=== PATIENT | male | born 1945 | race Caucasian/White ===

== ENCOUNTER 2016-09-04 10:54 | Inpatient (IN) | payer BC, OTHER ==
[~2016-09-04] VITALS: Ht 175.3 cm; Wt 78.7 kg
[~2016-09-04 10:54] MED LIST: ACET-1311 PO; ASPI81TA28 PO; ATOR-24 PO; BENA20TA14 PO; BIMA0.01 OP; HYDR12.55 PO; METO1TAB66 PO; PLV75 PO; SERT50TA PO
[2016-09-04] MEDS ORDERED: ONDANSETRON INJ 2 MG/ML 2 ML VIAL IV STA (11:20)
[2016-09-04] MEDS ORDERED: MoRPHine SULFATE 4 MG/ML 1 ML CARP\\VIAL IV STA (11:20)
--- NOTE | 2016-09-04 11:25 | EMERGENCY ROOM VISIT NOTE ---
History First contact with patient: 11:11 Chief Complaint: RESPIRATORY PROBLEMS Stated Complaint: DYPSNEA Nursing Triage Summary: Pt was at PCP this morning for a checkup and they wanted him evaluated for SOB. Pt c/o SOB, especially on exertion, for 1 week. Pt also c/o diffuse abdominal pain when he becomes SOB. Pt has history of 3 stents last year and heart failure. Legs are edematous and pt c/o burning in bilateral legs. History of Present Illness The patient is a 70 year old male who presents to the Emergency Room via private vehicle with complaints of "dyspnea". Patient states that he was at Dr. Alex Marshall's office this morning for a routine checkup and they sent him here for evaluation of shortness of breath. This has been worsening with exertion for the past week. Patient also complains of diffuse abdominal pain when he become short of breath. He has a history of 3 stents placed last year and a history of heart failure. Legs are edematous and is complaining of burning in the bilateral legs. Patient states that he did have stents recently placed. He notes he does not have any chest pain at this time. He feels that his legs are really swelling up. The abdomen hurts only when he takes a deep breath. He also feels nauseated. He denies any recent surgery or cough. Review of Systems A complete 10-point Review of Systems was discussed with the patient, with pertinent positives and negatives listed in the History of Present Illness. All remaining Review of Systems questions can be considered negative unless otherwise specified. Past Medical/Surgical History Medical Problems: (1) Acute exacerbation of CHF (congestive heart failure) (2) CAD in [place] artery Social History Smoking Status: Former Smoker Current/Historical Medications Scheduled Acetaminophen (Tylenol), 325 MG PO prn Aspirin (Aspirin Ec), 81 MG PO DAILY Atorvastatin (Lipitor), 1 TAB PO DAILY Benazepril (Lotensin), 20 MG PO DAILY Bimatoprost (Lumigan), 1 DROPS OP HS Clopidogrel Bisulfate (Clopidogrel), 75 MG PO QAM Hydrochlorothiazide (Hydrochlorothiazide), 1 TAB PO DAILY Metoprolol Succinate (Toprol Xl), 1 TAB PO DAILY Sertraline (Zoloft), 1.5 TAB PO DAILY Allergies Coded Allergies: No Known Allergies (Unverified , 09/04/16) Physical Exam Vital Signs Date Time Temp Pulse Resp B/P Pulse Ox O2 Delivery O2 Flow Rate FiO2 09/04/16 13:54 63 09/04/16 12:26 76 22 148/79 92 Nasal Cannula 2.0 09/04/16 11:54 95 Nasal Cannula 2.0 09/04/16 11:25 70 09/04/16 11:01 94 Room Air 09/04/16 11:01 36.7 71 22 159/74 94 Room Air 09/04/16 11:01 94 Room Air Physical Exam VITAL SIGNS - Vital signs and nursing notes were reviewed. Patient is afebrile , blood pressure 159/74, non-tachycardic and saturating on room air at 94%. While in the room he did drop into the high 80s. Oxygen was started. GENERAL -70-year-old male appearing his stated age who is in no acute distress. Communicates well with provider and answers questions appropriately. SKIN - Without rashes. No petechial rashes. HEAD - NC/AT. EYES - PERRL with EOMI bilaterally. Sclera anicteric. Palpebral conjunctiva pink and moist with no injection noted. EARS - No deformities of external structures noted on gross examination bilaterally. NOSE - Midline and without cyanosis. No epistaxis or purulent drainage noted. MOUTH/OROPHARYNX - Without perioral cyanosis. Buccal mucosa pink and moist and without leukoplakia. Tongue midline with equal elevation of palate bilaterally. No tonsillar hypertrophy, erythema, or exudates noted. Fair dentition noted. NECK - Neck with FROM. No JVD. LUNGS - Chest wall symmetric without accessory muscle use, intercostals retractions, or central cyanosis. Normal vesicular breath sounds CTA B/L. No wheezes, rales, or rhonchi appreciated. CARDIAC - RRR with S1/S2. No murmur, rubs, or gallops appreciated. ABDOMEN - Abdominal contour without pulsations or visible masses. BS normoactive all four quadrants. There is minimal tenderness to palpation over the abdomen diffusely. No palpable masses, hepatosplenomegaly, or ascites noted. EXTREMITIES - No clubbing or peripheral cyanosis. No pretibial edema present. +5 /5 strength noted in UE/LE bilaterally. NEUROLOGIC - Cranial nerves II through XII grossly intact. Sensory intact to light touch throughout. Patellar reflexes +2/4. PSYCH - A&Ox3 and cooperates fully with examiner. Pt is very pleasant and interacts well with examiner. A rectal exam was performed after patient consented. This was done with male director enterprise systems. Unremarkable except for positive Hemoccult. Medical Decision & Procedures ER Provider Diagnostic Interpretation: CHEST ONE VIEW PORTABLE CLINICAL HISTORY: Dyspnea COMPARISON STUDY: No previous studies for comparison. FINDINGS: Findings of interstitial pulmonary edema. Moderate left pleural effusion. Small right effusion. IMPRESSION: Interstitial pulmonary edema with bilateral pleural effusions CT ANGIOGRAPHY OF THE CHEST, PULMONARY EMBOLUS PROTOCOL CLINICAL HISTORY: Dyspnea. Hypoxia. COMPARISON STUDY: Chest radiograph performed earlier today. TECHNIQUE: Following IV administration of 104 mL of Optiray-320, helical axial images of the chest were obtained utilizing the pulmonary embolus protocol. Maximal intensity projections and sagittal and coronal reformats were viewed on an independent 3D workstation. IV contrast was administered without complication. CT DOSE: 403.70 mGy.cm FINDINGS: No pulmonary emboli are identified although the segmental and subsegmental vessels within the lower lobes are suboptimally assessed due to respiratory motion. There is no evidence of thoracic aortic dissection/ There is moderate cardiomegaly and extensive coronary artery calcification. There is no pericardial effusion. There is a large left pleural effusion and a moderate right pleural effusion. There is extensive left lower lobe volume loss. There is lingular atelectasis. There is also suspected right lower lobe segmental atelectasis. There is diffuse bronchial wall thickening. Mild secretions are noted at the joi. There is mild emphysema. Interlobular septal thickening and groundglass opacities within the lungs are noted. There is no pneumothorax. The bony thorax and visualized portions of the upper abdomen are unremarkable. IMPRESSION: 1. No pulmonary identified although the segmental and subsegmental pulmonary arteries within the lower lobes are suboptimally assessed due to respiratory motion. 2. Interlobular septal thickening consistent with interstitial pulmonary edema. Groundglass opacities likely reflect pulmonary edema as well. 3. Large left and moderate right pleural effusions. Extensive left lower lobe volume loss with airspace opacity favors compressive atelectasis. 4. Moderate cardiomegaly and extensive coronary artery calcification. Electronically signed by: Lonnie Almanza M.D. 09/04/2016 12:33 PM Dictated Date/Time: 09/04/2016 12:27 PM Laboratory Results Test 09/04/16 11:20 09/04/16 11:42 Polychromasia 1+ Hypochromasia PRESENT Poikilocytosis PRESENT Anisocytosis PRESENT Microcytosis PRESENT Prothrombin Time 15.2 SECONDS (9.0-12.0) Prothromb Time International Ratio 1.4 (0.9-1.1) Activated Partial Thromboplast Time 25.8 SECONDS (21.0-31.0) Partial Thromboplastin Ratio 1.0 Magnesium Level 2.1 mg/dl (1.8-2.4) Total Bilirubin 0.5 mg/dl (0.2-1) Aspartate Amino Transf (AST/SGOT) 24 U/L (15-37) Alanine Aminotransferase (ALT/SGPT) 30 U/L (12-78) Alkaline Phosphatase 246 U/L (45-117) Total Creatine Kinase 47 U/L (39-308) Creatine Kinase MB 2.8 ng/ml (0.5-3.6) Creatine Kinase MB Ratio 6.0 (0-3.0) Total Protein 6.5 gm/dl (6.4-8.2) Albumin 3.3 gm/dl (3.4-5.0) Globulin 3.2 gm/dl (2.5-4.0) Albumin/Globulin Ratio 1.0 (0.9-2) Lipase 116 U/L (73-393) Thyroid Stimulating Hormone (TSH) 2.810 uIu/ml (0.300-4.500) Bedside Hemoglobin 10.2 g/dl (14.0-18.0) Bedside Hematocrit 30 % (42-52) Bedside Sodium 132 mEq/L (135-144) Bedside Potassium 4.1 mEq/L (3.3-5.0) Bedside Chloride 93 mEq/L (101-112) Bedside Total CO2 23 mEq/l (24-31) Bedside Blood Urea Nitrogen 17 mg/dl (7-18) Bedside Creatinine 0.8 mg/dl (0.6-1.3) Bedside Glucose (other) 115 mg/dl (70-99) Bedside Ionized Calcium (Dasia) 1.17 mmol/l (1.12-1.32) Medications Administered Medications (Trade) Dose Ordered Sig/Kaitlynn Route Start Time Stop Time Status Last Admin Dose Admin Morphine Sulfate (MoRPHine SULFATE INJ) 4 mg NOW STAT IV 09/04/16 11:20 09/04/16 11:23 DC 09/04/16 11:51 4 MG Ondansetron HCl (Zofran Inj) 4 mg NOW STAT IV 09/04/16 11:20 09/04/16 11:23 DC 09/04/16 11:51 4 MG Acetaminophen (Tylenol Tab) 650 mg Q4H PRN PO 09/04/16 14:15 10/04/16 14:14 09/05/16 05:45 650 MG Medical Decision Patient was seen and evaluated as above. After obtaining a thorough history and physical examination IV access was obtained and the above workup was performed. Stat EKG was obtained and revealed normal sinus rhythm, rate of 69 bpm and when compared with previous no significant change was found and no ectopy or ischemic change. This was correlated with the negative troponin. Patient was found to be anemic with a hemoglobin of 8.4 which is new onset. Patient is on Plavix with an INR 1.4. Sodium was 133, chloride was low at 93, glucose was slightly high with alkaline phosphatase of 246. [id number] d- dimer was 753, BNP was 6112, and troponin was 0.05. Patient is likely experiencing an acute exacerbation of CHF. Because the elevated d-dimer CT scan of the chest was obtained with results as above. No pulmonary embolism. TSH was normal limits. It is likely the patient is experiencing an exacerbation of CHF as the troponin was normal, EKG displayed no severe change from previous the patient was stable. PE as per CT study. I believe the patient would benefit from inpatient management particularly given the extensive heart history. Case was discussed with my attending and decision to admit the patient was made. A Hemoccult rectal exam was performed and found to be positive at 12:50 PM. Please refer to further hospital documentation regarding the patient's stay. I did not give the patient aspirin as he was already on Plavix. He was NOT experiencing any pain upon my evaluation. In evaluation treatment this patient following differential diagnoses were entertained: CHF, PE, MS, costochondritis, pericarditis, among others. Impression Primary Impression: Chest pain Additional Impressions: Anemia Alkaline phosphatase elevation Departure Information Dispostion Admitted as an inpatient Condition FAIR Referrals Alex Marshall M.D. (PCP) Patient Instructions [facility] Problem Qualifiers
--- NOTE | 2016-09-04 11:39 | DIAGNOSTIC IMAGING REPORT ---
CHEST ONE VIEW PORTABLE CLINICAL HISTORY: Dyspnea COMPARISON STUDY: No previous studies for comparison. FINDINGS: Findings of interstitial pulmonary edema. Moderate left pleural effusion. Small right effusion. IMPRESSION: Interstitial pulmonary edema with bilateral pleural effusions Electronically signed by: John Linder M.D. 09/04/2016 11:38 AM Dictated Date/Time: 09/04/2016 11:37 AM
[2016-09-04 11:44] LABS: BASO % 0.3 %; BASO ABS # 0.02 K/uL (0-0.2); EOS % 0.3 %; IG% 0.3 %; LYMPH % 8.9 %; LYMPH ABS # 0.65 K/uL (1.2-3.4); MEAN PLATELET VOLUME 10.2 fL (7.4-10.4); MONO % 6.2 %; PLATELET COUNT 281 K/uL (130-400); WHITE BLOOD COUNT 7.31 K/uL (4.8-10.8)
[2016-09-04 11:46] LABS: INR 1.4 (0.9-1.1); PROTHROMBIN TIME (PATIENT) 15.2 SECONDS (9.0-12.0)
[2016-09-04 11:50] LABS: BUN/CREATININE RATIO 20.5 (10-20); CALCIUM 8.6 mg/dl (8.5-10.1); CREATININE 0.86 mg/dl (0.60-1.40); MAGNESIUM 2.1 mg/dl (1.8-2.4); POTASSIUM 4.1 mmol/L (3.5-5.1)
[2016-09-04 11:58] LABS: ISTAT CREATININE 0.8 mg/dl (0.6-1.3); ISTAT HEMOGLOBIN 10.2 g/dl (14.0-18.0); ISTAT IONIZED CALCIUM 1.17 mmol/l (1.12-1.32)
[2016-09-04 12:01] LABS: THYROID STIMULATING HORMONE 2.81 uIu/ml (0.300-4.500)
[2016-09-04 12:13] LABS: ANISOCYTOSIS PRESENT; COMPLETE YES; HYPOCHROMIA PRESENT; MICROCYTOSIS PRESENT; OVALOCYTES 1+; POIKILOCYTOSIS PRESENT; POLYCHROMASIA 1+
--- NOTE | 2016-09-04 12:13 | EMERGENCY ROOM VISIT NOTE ---
ED Visit Note First contact with patient: 11:11 This Patient was discussed with the physician architectural administrative assistant, Scott Loco PA-C. The pertinent historical and physical exam findings were confirmed. I agree with the studies ordered and with the interpretations of these studies. I agree with the disposition and care plan.
[2016-09-04] MEDS ORDERED: OPTIRAY 320 IV PRN (12:15)
--- NOTE | 2016-09-04 12:34 | DIAGNOSTIC IMAGING REPORT ---
CT ANGIOGRAPHY OF THE CHEST, PULMONARY EMBOLUS PROTOCOL CLINICAL HISTORY: Dyspnea. Hypoxia. COMPARISON STUDY: Chest radiograph performed earlier today. TECHNIQUE: Following IV administration of 104 mL of Optiray-320, helical axial images of the chest were obtained utilizing the pulmonary embolus protocol. Maximal intensity projections and sagittal and coronal reformats were viewed on an independent 3D workstation. IV contrast was administered without complication. CT DOSE: 403.70 mGy.cm FINDINGS: No pulmonary emboli are identified although the segmental and subsegmental vessels within the lower lobes are suboptimally assessed due to respiratory motion. There is no evidence of thoracic aortic dissection/ There is moderate cardiomegaly and extensive coronary artery calcification. There is no pericardial effusion. There is a large left pleural effusion and a moderate right pleural effusion. There is extensive left lower lobe volume loss. There is lingular atelectasis. There is also suspected right lower lobe segmental atelectasis. There is diffuse bronchial wall thickening. Mild secretions are noted at the joi. There is mild emphysema. Interlobular septal thickening and groundglass opacities within the lungs are noted. There is no pneumothorax. The bony thorax and visualized portions of the upper abdomen are unremarkable. IMPRESSION: 1. No pulmonary identified although the segmental and subsegmental pulmonary arteries within the lower lobes are suboptimally assessed due to respiratory motion. 2. Interlobular septal thickening consistent with interstitial pulmonary edema. Groundglass opacities likely reflect pulmonary edema as well. 3. Large left and moderate right pleural effusions. Extensive left lower lobe volume loss with airspace opacity favors compressive atelectasis. 4. Moderate cardiomegaly and extensive coronary artery calcification. Electronically signed by: Lonnie Almanza M.D. 09/04/2016 12:33 PM Dictated Date/Time: 09/04/2016 12:27 PM
--- NOTE | 2016-09-04 13:42 | History and Physical ---
History & Physical Date & Time of Service: Sep 04, 2016 at 13:32 Chief Complaint: Dypsnea Primary Care Physician: Alex Marshall M.D. History of Present Illness Source: patient This is a 70 yo M with PMHx of severe CAD s/p PCI x 2 with total of 3 DEZ placed in the RCA and 1st diagonal branch in Mar 2016, severe cardiomyopathy with aortic stenosis and mitral regurgitation who presents with new onset shortness of breath. The patient had an outpatient appointment with Dr. Marshall this morning and was sent here for shortness of breath. He reports feeling increasingly worse in the past week with easy fatigue, weakness, swelling in LE and progressive shortness of breath. He reports orthopnea and worsening swelling in bilateral LE in the past 3 days. He normally does not wear O2 at baseline, and is currently requiring 2 L via NC. He was so short of breath after walking in the parking lot to the stairs outside his PCPs office he needed to stop. CXR showing bilateral pleural effusions with Left worse than right, BNP and trop are in process, CTPE is negative for acute PE, VSS. Social History Smoking Status: Former Smoker Smokeless Tobacco Use: No Alcohol Use: none Drug Use: none Multi-Drug Resistant Organisms History of MDRO: No Allergies Coded Allergies: No Known Allergies (Unverified , 09/04/16) Home Medications Scheduled Acetaminophen (Tylenol), 325 MG PO prn Aspirin (Aspirin Ec), 81 MG PO DAILY Atorvastatin (Lipitor), 1 TAB PO DAILY Benazepril (Lotensin), 20 MG PO DAILY Bimatoprost (Lumigan), 1 DROPS OP HS Clopidogrel Bisulfate (Clopidogrel), 75 MG PO QAM Hydrochlorothiazide (Hydrochlorothiazide), 1 TAB PO DAILY Metoprolol Succinate (Toprol Xl), 1 TAB PO DAILY Sertraline (Zoloft), 1.5 TAB PO DAILY Review of Systems All 10 point ROS was reviewed and negative unless otherwise notes as per HPI Physical Exam Vital Signs Date Time Temp Pulse Resp B/P Pulse Ox O2 Delivery O2 Flow Rate FiO2 09/04/16 12:26 76 22 148/79 92 Nasal Cannula 2.0 09/04/16 11:54 95 Nasal Cannula 2.0 09/04/16 11:25 70 09/04/16 11:01 94 Room Air 09/04/16 11:01 36.7 71 22 159/74 94 Room Air 09/04/16 11:01 94 Room Air General Appearance: WD/WN, no apparent distress Head: normocephalic, atraumatic Eyes: PERRL, EOMI, + pertinent finding (dry mucous membranes) ENT: hearing grossly normal, + pertinent finding (endentulous) Neck: supple, + JVD Respiratory/Chest: chest non-tender, no accessory muscle use, + pertinent finding (+ crackles at the right base, no breath sounds in the LLL. Good air movement in RUL, RML and SHANNAN. Wearing 2 L O2 via NC with o2 sats in low 90s, ) Cardiovascular: regular rate, rhythm, normal peripheral pulses, + systolic murmur Abdomen/GI: normal bowel sounds, non tender, soft, + pertinent finding (no rebound tenderness of guarding. No pain with deep breaths. ) Genitourinary - Male: + pertinent finding (No scrotal edema) Back: normal inspection Extremities/Musculoskelatal: no calf tenderness, + pedal edema (3+ pitting in BLE up to knees, no erythema. ) Neurologic/Psych: alert, normal mood/affect, oriented x 3 Skin: normal color, warm/dry Diagnostics Laboratory Results Results Past 24 Hours Test 09/04/16 11:20 09/04/16 11:42 Range/Units White Blood Count 7.31 4.8-10.8 K/uL Red Blood Count 4.00 4.7-6.1 M/uL Hemoglobin 8.4 14.0-18.0 g/dL Hematocrit 28.0 42-52 % Mean Corpuscular Volume 70.0 80-100 fL Mean Corpuscular Hemoglobin 21.0 25-34 pg Mean Corpuscular Hemoglobin Concent 30.0 32-36 g/dl Platelet Count 281 130-400 K/uL Mean Platelet Volume 10.2 7.4-10.4 fL Neutrophils (%) (Auto) 84.0 % Lymphocytes (%) (Auto) 8.9 % Monocytes (%) (Auto) 6.2 % Eosinophils (%) (Auto) 0.3 % Basophils (%) (Auto) 0.3 % Neutrophils # (Auto) 6.15 1.4-6.5 K/uL Lymphocytes # (Auto) 0.65 1.2-3.4 K/uL Monocytes # (Auto) 0.45 0.11-0.59 K/uL Eosinophils # (Auto) 0.02 0-0.5 K/uL Basophils # (Auto) 0.02 0-0.2 K/uL RDW Standard Deviation 48.9 36.4-46.3 fL RDW Coefficient of Variation 19.2 11.5-14.5 % Immature Granulocyte % (Auto) 0.3 % Immature Granulocyte # (Auto) 0.02 0.00-0.02 K/uL Polychromasia 1+ Hypochromasia PRESENT Poikilocytosis PRESENT Anisocytosis PRESENT Microcytosis PRESENT Ovalocytes 1+ Prothrombin Time 15.2 9.0-12.0 SECONDS Prothromb Time International Ratio 1.4 0.9-1.1 Activated Partial Thromboplast Time 25.8 21.0-31.0 SECONDS Partial Thromboplastin Ratio 1.0 Sodium Level 133 136-145 mmol/L Potassium Level 4.1 3.5-5.1 mmol/L Chloride Level 98 98-107 mmol/L Carbon Dioxide Level 24 21-32 mmol/L Anion Gap 11.0 20.0 16-25 mmol/L Blood Urea Nitrogen 18 7-18 mg/dl Creatinine 0.86 0.60-1.40 mg/dl Est Creatinine Clear Calc Drug Dose 84.8 ml/min Estimated GFR () 100.4 Estimated GFR (Non- 86.6 BUN/Creatinine Ratio 20.5 10-20 Random Glucose 113 70-99 mg/dl Calcium Level 8.6 8.5-10.1 mg/dl Magnesium Level 2.1 1.8-2.4 mg/dl Total Bilirubin 0.5 0.2-1 mg/dl Aspartate Amino Transf (AST/SGOT) 24 15-37 U/L Alanine Aminotransferase (ALT/SGPT) 30 12-78 U/L Alkaline Phosphatase 246 45-117 U/L Total Creatine Kinase 47 39-308 U/L Creatine Kinase MB 2.8 0.5-3.6 ng/ml Creatine Kinase MB Ratio 6.0 0-3.0 Total Protein 6.5 6.4-8.2 gm/dl Albumin 3.3 3.4-5.0 gm/dl Globulin 3.2 2.5-4.0 gm/dl Albumin/Globulin Ratio 1.0 0.9-2 Lipase 116 73-393 U/L Thyroid Stimulating Hormone (TSH) 2.810 0.300-4.500 uIu/ml Bedside Hemoglobin 10.2 14.0-18.0 g/dl Bedside Hematocrit 30 42-52 % Bedside Sodium 132 135-144 mEq/L Bedside Potassium 4.1 3.3-5.0 mEq/L Bedside Chloride 93 101-112 mEq/L Bedside Total CO2 23 24-31 mEq/l Bedside Blood Urea Nitrogen 17 7-18 mg/dl Bedside Creatinine 0.8 0.6-1.3 mg/dl Bedside Glucose (other) 115 70-99 mg/dl Bedside Ionized Calcium (Dasia) 1.17 1.12-1.32 mmol/l Diagnostic Radiology CHEST ONE VIEW PORTABLE CLINICAL HISTORY: Dyspnea COMPARISON STUDY: No previous studies for comparison. FINDINGS: Findings of interstitial pulmonary edema. Moderate left pleural effusion. Small right effusion. IMPRESSION: Interstitial pulmonary edema with bilateral pleural effusions Electronically signed by: John Linder M.D. 09/04/2016 11:38 AM Dictated Date/Time: 09/04/2016 11:37 AM The status of this report is Signed. CT ANGIOGRAPHY OF THE CHEST, PULMONARY EMBOLUS PROTOCOL CLINICAL HISTORY: Dyspnea. Hypoxia. COMPARISON STUDY: Chest radiograph performed earlier today. TECHNIQUE: Following IV administration of 104 mL of Optiray-320, helical axial images of the chest were obtained utilizing the pulmonary embolus protocol. Maximal intensity projections and sagittal and coronal reformats were viewed on an independent 3D workstation. IV contrast was administered without complication. CT DOSE: 403.70 mGy.cm FINDINGS: No pulmonary emboli are identified although the segmental and subsegmental vessels within the lower lobes are suboptimally assessed due to respiratory motion. There is no evidence of thoracic aortic dissection/ There is moderate cardiomegaly and extensive coronary artery calcification. There is no pericardial effusion. There is a large left pleural effusion and a moderate right pleural effusion. There is extensive left lower lobe volume loss. There is lingular atelectasis. There is also suspected right lower lobe segmental atelectasis. There is diffuse bronchial wall thickening. Mild secretions are noted at the joi. There is mild emphysema. Interlobular septal thickening and groundglass opacities within the lungs are noted. There is no pneumothorax. The bony thorax and visualized portions of the upper abdomen are unremarkable. IMPRESSION: 1. No pulmonary identified although the segmental and subsegmental pulmonary arteries within the lower lobes are suboptimally assessed due to respiratory motion. 2. Interlobular septal thickening consistent with interstitial pulmonary edema. Groundglass opacities likely reflect pulmonary edema as well. 3. Large left and moderate right pleural effusions. Extensive left lower lobe volume loss with airspace opacity favors compressive atelectasis. 4. Moderate cardiomegaly and extensive coronary artery calcification. Electronically signed by: Lonnie Almanza M.D. 09/04/2016 12:33 PM Dictated Date/Time: 09/04/2016 12:27 PM The status of this report is Signed. EKG Vent. rate 69 BPM IA interval 198 ms QRS duration 98 ms QT/QTc 434/465 ms P-R-T axes [address] and T wave slight elevation in the lateral leads, Prolonged QT Impression Assessment and Plan This is a 70 yo M with PMHx of severe CAD s/p PCI x 2 with total of 3 DEZ placed in the RCA and 1st diagonal branch in Mar 2016, severe cardiomyopathy with aortic stenosis and mitral regurgitation who presents with new onset shortness of breath. Acute exacerbation of chronic systolic CHF HTN Severe cardiomyopathy with EF 30% in 09/2015 Severe CAD s/p PCI x 2 with total of 3 DEZ placed, (2 in the RCA and 1 in the 1st diagnoal) - Admit to tele - Appears to be volume overloaded with 2/3+ pitting edema in BLE and +crackles in the RLL with diminished breath sounds in the LLL. - CXR showing bilateral pleural effusions worse on the left than on the right. CTPE negative for pulmonary embolism. - Will order 60 mg IV lasix now, Strict I/Os. - BNP not ordered in the ED, checking now - Consult cardiology for recs regarding gi bleed and anticoagulation in light of severe CAD and DEZ x 3 - Continue Plavix 75 mg for now even with hemocult + check in the ED - Continue metoprolol succinate 25 mg daily, amlodipine/benzapril 5/20 mg daily , asa 81 mg daily, atorvastatin 80 mg daily - HOLD HCTZ 12.5 while diuresis with lasix. - Follow am labs GI Bleed? - Hemocult stool in ED + - Pt has history of rectal bleed prior to this admit, denies BRBPR, black or tarry stools, no abd pain, hematochezia, nausea - Will start on protonix gtt now, not on oral PPI as outpatient - Check H&H q6H - current hgb is 8.4 - if changes in hgb or worsening sx then will consider GI consult. Depression - Continue zoloft 75 mg daily DVT ppx: chemical contraindicated with potential GI bleed, SCDs, OOB CODE STATUS: FULL CODE Level of Care Telemetry Resuscitation Status FULL RESUSCITATION VTE Prophylaxis VTE Risk Assessment Done? Y/N: Yes Risk Level: Very Low Given or contraindicated: SCD's Reviewed: Pt Seen/Exam by Me, RN Notes, HO Notes, Prior Records, Labs, EKG History I Agree with PA H&P except as below This is a 70 yo M with PMHx of severe CAD s/p PCI x 2 with total of 3 DEZ placed in the RCA and 1st diagonal branch in Mar 2016, severe cardiomyopathy with aortic stenosis and mitral regurgitation who presents with new onset shortness of breath. EENTM: denies: eye pain Respiratory: negative: cough Cardiovascular: denies chest pain Gastrointestinal/Abdominal: negative: abdominal pain Musculoskeletal: negative: back pain Neurological/Psych: negative: anxiety Hematologic/Lymphatic: negative: anemia General Appearance: WD/WN, no apparent distress Eye Exam: bilateral eye normal inspection Ears, Nose, Throat: hearing grossly normal, pharynx normal Neck: full range of motion, normal inspection Respiratory: chest non-tender, normal breath sounds Cardiovascular: no edema, no JVD Gastrointestinal: non tender, soft Extremities: non-tender Assessment/Plan This is a 70 yo M with PMHx of severe CAD s/p PCI x 2 with total of 3 DEZ placed in the RCA and 1st diagonal branch in Mar 2016, severe cardiomyopathy with aortic stenosis and mitral regurgitation who presents with new onset shortness of breath. Acute exacerbation of chronic systolic CHF in the setting of Severe cardiomyopathy with EF 30% in 09/2015 and Severe CAD s/p PCI x 2 with total of 3 DEZ placed, (2 in the RCA and 1 in the 1st diagonal) tele volume overloaded with 2/3+ pitting edema in BLE and +crackles in the RLL with diminished breath sounds in the LLL. CXR showing bilateral pleural effusions worse on the left than on the right. CTPE negative for pulmonary embolism. agree with 60 mg IV lasix now, Strict I/Os. check BNP Consult cardiology for recs regarding gi bleed and anticoagulation in light of severe CAD and DEZ x 3 Continue Plavix 75 mg for now even with hemocult + check in the ED Continue metoprolol succinate 25 mg daily, amlodipine/benzapril 5/20 mg daily, asa 81 mg daily, atorvastatin 80 mg daily HOLD HCTZ 12.5 while diuresis with lasix. GI Bleed? Hemocult stool in ED + Pt has history of rectal bleed prior to this admit, denies BRBPR, black or tarry stools, no abd pain, hematochezia, nausea start on protonix gtt now, not on oral PPI as outpatient Check H&H q6H - current hgb is 8.4 if changes in hgb or worsening sx then will consider GI consult. Depression Continue zoloft 75 mg daily DVT proph: chemical contraindicated with potential GI bleed, SCDs, OOB CODE STATUS: FULL CODE case discussed with GRETEL Ernandez time spent 50 min
[2016-09-04] MEDS ORDERED: ALUMINUM/MAGNESIUM/SIMETH (MAALOX MAX) 30 ML UDC PO PRN (14:15)
[2016-09-04] MEDS ORDERED: NITROGLYCERIN 0.4 MG SL PER TAB CHARGE SL PRN (14:15)
[2016-09-04] MEDS ORDERED: ONDANSETRON INJ 2 MG/ML 2 ML VIAL IV PRN (14:15)
[2016-09-04] MEDS ORDERED: PANTOprazole INJ 80 MG in DEXTROSE 5% 100ML IV SCH ×2 (14:45→16:00)
[2016-09-04] MEDS: PANTOprazole INJ 40 MG in DEXTROSE 5% 100ML IV SCH ×2 (15:53→20:36)
[2016-09-04] MEDS ORDERED: FUROSEMIDE INJ 60 MG in SYRINGE 0 ML IV SCH (16:00)
[2016-09-04] MEDS ORDERED: PANTOprazole INJ 40 MG in DEXTROSE 5% 100ML IV SCH (16:15)
[2016-09-04 17:25] VITALS: BP 128/73; PULSE 61; TEMP 36.3; O2SAT 96; Ht 175.3 cm; Wt 78.7 kg
[2016-09-04 20:10] VITALS: BP 119/63; PULSE 51; TEMP 36.7; O2SAT 95
[2016-09-04] MEDS: BIMATOPROST 0.01% OP SOLN 2.5 ML BTL OP SCH (20:37)
[2016-09-04] MEDS ORDERED: INFLUENZA VIRUS QUAD VACCINE 0.5 ML SYR IM. ONE (21:00)
[2016-09-04] MEDS ORDERED: PNEUMOCOCCAL POLYSACCHARIDES 25 MCG/0.5 ML VIAL/SYR IM. ONE (21:00)
[2016-09-04] MEDS ORDERED: PNEUMOCOCCAL ADMINISTRATION CHARGE ONE (21:00)
[2016-09-04] MEDS ORDERED: INFLUENZA ADMINISTRATION CHARGE ONE (21:00)
[2016-09-04 22:33] LABS: HEMATOCRIT 27.4 % (42-52)
[2016-09-04] MEDS ORDERED: FUROSEMIDE INJ 20 MG in SYRINGE 0 ML IV SCH (23:00)
[2016-09-04 23:36] VITALS: BP 128/68; PULSE 53; TEMP 36.3; O2SAT 97
[2016-09-05] VITALS (12 sets, daily range): BP systolic 114–133; BP diastolic 55–72; PULSE 45–91; TEMP 36.3–36.9; O2SAT 91–99
[2016-09-05] MEDS: PANTOprazole INJ 40 MG in DEXTROSE 5% 100ML IV SCH ×2 (02:37→08:30)
--- NOTE | 2016-09-05 05:18 | Progress Note ---
Progress Note Contacted by nurse about bradycardia - high 40s, low 50s - cbc returned and revealed anemia however hemodynamically stable and asymptomatic - hemm occult grossly positive - 2 units of blood ordered, one transfused with 20 mg of lasix given after - HR improved to low 60s - consult GI
[2016-09-05] MEDS: ACETAMINOPHEN 325 MG TAB PO PRN (05:45)
[2016-09-05 06:00] LABS: BASO % 0.7 %; BASO ABS # 0.05 K/uL (0-0.2); EOS % 1.3 %; HEMATOCRIT 30.4 % (42-52); IG% 0.1 %; LYMPH % 16.6 %; LYMPH ABS # 1.11 K/uL (1.2-3.4); MEAN CELL VOLUME 71.5 fL (80-100); MEAN CORPUSCULAR HEMOGLOBIN 21.4 pg (25-34); MEAN CORPUSCULAR HGB CONC 29.9 g/dl (32-36); MEAN PLATELET VOLUME 10.6 fL (7.4-10.4); MONO % 9.6 %; NEUT % 71.7 %; PLATELET COUNT 261 K/uL (130-400); RED BLOOD COUNT 4.25 M/uL (4.7-6.1); WHITE BLOOD COUNT 6.68 K/uL (4.8-10.8)
[2016-09-05 06:24] LABS: BUN/CREATININE RATIO 14.8 (10-20); CALCIUM 8.4 mg/dl (8.5-10.1); CREATININE 1.1 mg/dl (0.60-1.40); POTASSIUM 3.6 mmol/L (3.5-5.1)
[2016-09-05 06:38] LABS: ACANTHOCYTES 1+; COMPLETE YES; OVALOCYTES 1+; TEAR DROP CELLS 1+
[2016-09-05] MEDS: FUROSEMIDE INJ 40 MG in SYRINGE 0 ML IV SCH (08:26)
[2016-09-05] MEDS: ASPIRIN 81 MG ECTAB PO SCH (08:27)
[2016-09-05] MEDS: ENALAPRIL MALEATE 10 MG TAB PO SCH (08:27)
[2016-09-05] MEDS: ATORVASTATIN 40 MG TAB PO SCH (08:28)
[2016-09-05] MEDS: CLOPIDOGREL BISULFATE 75 MG TAB PO SCH (08:28)
[2016-09-05] MEDS: SERTRALINE HCL 50 MG TAB PO SCH (08:29)
[2016-09-05] MEDS: METOPROLOL SUCC 50MG EXT REL TAB PO SCH (08:30)
--- NOTE | 2016-09-05 08:39 | Gastroenterology Progress Note ---
Progress Note Date of Service: Sep 05, 2016 Subjective Pt evaluation today including: conversation w/ patient, physical exam, chart review, review of studies, review of inpatient medication list Medications Current Inpatient Medications Medications (Trade) Dose Ordered Sig/Kaitlynn Route Start Time Stop Time Status Last Admin Dose Admin Ioversol (Optiray 320) 125 ml UD PRN IV 09/04/16 12:15 09/08/16 12:14 Acetaminophen (Tylenol Tab) 650 mg Q4H PRN PO 09/04/16 14:15 10/04/16 14:14 09/05/16 05:45 650 MG Al Hydrox/Mg Hydrox/Simethicone (Maalox Max Susp) 15 ml Q4H PRN PO 09/04/16 14:15 10/04/16 14:14 Ondansetron HCl (Zofran Inj) 4 mg Q6H PRN IV 09/04/16 14:15 10/04/16 14:14 Nitroglycerin (Nitrostat Tab) 0.4 mg UD PRN SL 09/04/16 14:15 10/04/16 14:14 Aspirin (Ecotrin Tab) 81 mg DAILY PO 09/05/16 09:00 10/05/16 08:59 Atorvastatin Calcium (Lipitor Tab) 40 mg DAILY PO 09/05/16 09:00 10/05/16 08:59 Clopidogrel Bisulfate (plAVix TAB) 75 mg QAM PO 09/05/16 09:00 10/05/16 08:59 Metoprolol Succinate (Toprol Xl Tab) 50 mg DAILY PO 09/05/16 09:00 10/05/16 08:59 Sertraline HCl (Zoloft Tab) 75 mg DAILY PO 09/05/16 09:00 10/05/16 08:59 Enalapril Maleate (Vasotec Tab) 20 mg DAILY PO 09/05/16 09:00 10/05/16 08:59 Bimatoprost 1 drops 1 drops HS OP 09/04/16 21:00 10/04/16 20:59 09/04/16 20:37 1 DROPS Furosemide 40 mg/ Syringe 4 ml @ 4 mls/min QAM IV 09/05/16 09:00 10/05/16 08:59 Pantoprazole Sodium/Dextrose (Protonix Inj/D5 100ml) 100 ml @ 20 mls/hr Q5H IV 09/04/16 15:00 10/04/16 14:59 09/05/16 02:37 20 MLS/HR Objective Vital Signs Date Time Temp Pulse Resp B/P Pulse Ox O2 Delivery O2 Flow Rate FiO2 09/05/16 07:11 36.6 45 20 114/70 99 09/05/16 04:00 93 Nasal Cannula 2.0 09/05/16 04:00 36.4 66 20 128/72 93 2.0 09/05/16 01:50 36.5 62 20 120/60 95 09/05/16 01:20 36.3 59 20 124/59 95 09/05/16 00:50 36.6 64 20 119/63 95 09/05/16 00:35 36.3 64 20 119/63 94 2.0 09/05/16 00:20 36.5 55 16 133/67 94 2.0 09/05/16 00:00 94 Nasal Cannula 2.0 09/04/16 23:36 36.3 53 18 128/68 97 Nasal Cannula 2.0 09/04/16 20:10 36.7 51 18 119/63 95 Nasal Cannula 2.0 09/04/16 20:00 Nasal Cannula 2.0 09/04/16 17:25 36.3 61 18 128/73 96 Nasal Cannula 2.0 09/04/16 14:48 58 20 118/98 97 Nasal Cannula 2.0 09/04/16 14:22 58 22 123/65 97 Nasal Cannula 2.0 09/04/16 13:54 63 09/04/16 12:26 76 22 148/79 92 Nasal Cannula 2.0 09/04/16 11:54 95 Nasal Cannula 2.0 09/04/16 11:25 70 09/04/16 11:01 94 Room Air 09/04/16 11:01 36.7 71 22 159/74 94 Room Air 09/04/16 11:01 94 Room Air Laboratory Results Last 24 Hours Test 09/04/16 11:20 09/04/16 11:42 09/04/16 17:40 09/04/16 22:00 White Blood Count 7.31 K/uL Red Blood Count 4.00 M/uL Hemoglobin 8.4 g/dL 7.9 g/dL 8.0 g/dL Hematocrit 28.0 % 27.0 % 27.4 % Mean Corpuscular Volume 70.0 fL Mean Corpuscular Hemoglobin 21.0 pg Mean Corpuscular Hemoglobin Concent 30.0 g/dl Platelet Count 281 K/uL Mean Platelet Volume 10.2 fL Neutrophils (%) (Auto) 84.0 % Lymphocytes (%) (Auto) 8.9 % Monocytes (%) (Auto) 6.2 % Eosinophils (%) (Auto) 0.3 % Basophils (%) (Auto) 0.3 % Neutrophils # (Auto) 6.15 K/uL Lymphocytes # (Auto) 0.65 K/uL Monocytes # (Auto) 0.45 K/uL Eosinophils # (Auto) 0.02 K/uL Basophils # (Auto) 0.02 K/uL RDW Standard Deviation 48.9 fL RDW Coefficient of Variation 19.2 % Immature Granulocyte % (Auto) 0.3 % Immature Granulocyte # (Auto) 0.02 K/uL Polychromasia 1+ Hypochromasia PRESENT Poikilocytosis PRESENT Anisocytosis PRESENT Microcytosis PRESENT Ovalocytes 1+ Prothrombin Time 15.2 SECONDS Prothromb Time International Ratio 1.4 Activated Partial Thromboplast Time 25.8 SECONDS Partial Thromboplastin Ratio 1.0 Sodium Level 133 mmol/L Potassium Level 4.1 mmol/L Chloride Level 98 mmol/L Carbon Dioxide Level 24 mmol/L Anion Gap 11.0 mmol/L 20.0 mmol/L Blood Urea Nitrogen 18 mg/dl Creatinine 0.86 mg/dl Est Creatinine Clear Calc Drug Dose 84.8 ml/min Estimated GFR () 100.4 Estimated GFR (Non- 86.6 BUN/Creatinine Ratio 20.5 Random Glucose 113 mg/dl Calcium Level 8.6 mg/dl Magnesium Level 2.1 mg/dl Total Bilirubin 0.5 mg/dl Aspartate Amino Transf (AST/SGOT) 24 U/L Alanine Aminotransferase (ALT/SGPT) 30 U/L Alkaline Phosphatase 246 U/L Total Creatine Kinase 47 U/L Creatine Kinase MB 2.8 ng/ml Creatine Kinase MB Ratio 6.0 Total Protein 6.5 gm/dl Albumin 3.3 gm/dl Globulin 3.2 gm/dl Albumin/Globulin Ratio 1.0 Lipase 116 U/L Thyroid Stimulating Hormone (TSH) 2.810 uIu/ml Bedside Hemoglobin 10.2 g/dl Bedside Hematocrit 30 % Bedside Sodium 132 mEq/L Bedside Potassium 4.1 mEq/L Bedside Chloride 93 mEq/L Bedside Total CO2 23 mEq/l Bedside Blood Urea Nitrogen 17 mg/dl Bedside Creatinine 0.8 mg/dl Bedside Glucose (other) 115 mg/dl Bedside Ionized Calcium (Dasia) 1.17 mmol/l Pro-B-Type Natriuretic Peptide 72625 pg/ml Test 09/05/16 05:31 White Blood Count 6.68 K/uL Red Blood Count 4.25 M/uL Hemoglobin 9.1 g/dL Hematocrit 30.4 % Mean Corpuscular Volume 71.5 fL Mean Corpuscular Hemoglobin 21.4 pg Mean Corpuscular Hemoglobin Concent 29.9 g/dl Platelet Count 261 K/uL Mean Platelet Volume 10.6 fL Neutrophils (%) (Auto) 71.7 % Lymphocytes (%) (Auto) 16.6 % Monocytes (%) (Auto) 9.6 % Eosinophils (%) (Auto) 1.3 % Basophils (%) (Auto) 0.7 % Neutrophils # (Auto) 4.78 K/uL Lymphocytes # (Auto) 1.11 K/uL Monocytes # (Auto) 0.64 K/uL Eosinophils # (Auto) 0.09 K/uL Basophils # (Auto) 0.05 K/uL RDW Standard Deviation 50.0 fL RDW Coefficient of Variation 19.1 % Immature Granulocyte % (Auto) 0.1 % Immature Granulocyte # (Auto) 0.01 K/uL Tear Drop Cells 1+ Ovalocytes 1+ Acanthocytes 1+ Sodium Level 134 mmol/L Potassium Level 3.6 mmol/L Chloride Level 97 mmol/L Carbon Dioxide Level 27 mmol/L Anion Gap 10.0 mmol/L Blood Urea Nitrogen 16 mg/dl Creatinine 1.10 mg/dl Est Creatinine Clear Calc Drug Dose 66.3 ml/min Estimated GFR () 77.3 Estimated GFR (Non- 66.7 BUN/Creatinine Ratio 14.8 Random Glucose 79 mg/dl Calcium Level 8.4 mg/dl Assessment and Plan GI consult dictated job [id number] Heme positive stool--has history of limited rectal bleeding he attributes to hemorrhoids but not enough to explain anemia, no localizing clinical signs, could be PUD from ASA so cover with Protonix but does not need drip will do 40 mg IV bid. Once cardiac status optimized can do EGD and if no explanation then colonoscopy. anemia likely from chronic GI blood loss-transfuse prn, elevated alk phos--could be from liver congestion from CHF--follow for now. severe diverticulosis--needing pediatric scope at time of last colonoscopy 2008- -no abd pain at present to suggest diverticulitis. Others per hospitalist: CHF aortic stenosis
[2016-09-05] MEDS: PANTOprazole INJ 40 MG in SYRINGE 0 ML IV SCH ×2 (10:06→20:47)
--- NOTE | 2016-09-05 10:20 | Medical Student: [facility] ---
Med Student History & Physical Date & Time of Service: Sep 05, 2016 at 10:20 Chief Complaint: Acute Exacerbation Of Chf Primary Care Physician: Alex Marshall M.D. History of Present Illness Source: patient, clinic records This is a 70 y/o male who presented to pcp yesterday for increasing dyspnea on exertion and SOB. He notes that he had been doing well until recently but now is having difficulty taking any more than 10 steps before needing to stop and catch his breath. Patient also noted abdominal pain whenever short of breath. He also believes his legs have become more swollen as of recently with a burning sensation. Today on examination he feels better than yesterday, with no shortness of breath. He also has not had abdominal pain today, and he thinks his legs look better overall. He has been walking around a little bit, but not too much. Additionally, it was noted in the ED that his hemoccult rectal test was positive, but patient states that he does have a history of GI bleeds and hemorrhoids, so he doesn't think this is abnormal. Patient has a pmh of hypertension, dyslipidemia, osteoarthritis, and recent history of LV dysfunction, cardiomyopathy, and CAD s/p PCI. Last February he was referred by his PCP to have a cardiac echo after noticing murmur c/w aortic stenosis. Patient had been asymptomatic otherwise, without chest pain or GARBER. Echo at this time showed dilated cardiomyopathy with mild-moderate aortic stenosis and severe left ventricular dysfunction with ejection fraction of 25-30 %. Following this, patient was sent to cath and had 3 stents placed. Repeat echo showed improved LV function from 25-30% to 35-40%. Afterward, he had been doing well up until this point. He was supposed to follow up with cardio but all his appointments were cancelled since then. Patient does not note any recent illnesses/acute events that would have triggered his current state. He has been doing well otherwise, has not had any recent hospitalizations, illnesses, or changes in lifestyle. He denies nausea/ vomiting/diarrhea, constipation, recent falls, fevers, shakes, chills. He denies chest pain or cough. Past Medical/Surgical History Medical Problems: (1) Alkaline phosphatase elevation Status: Acute (2) Anemia Status: Acute (3) Chest pain Status: Acute Family History Father: coronary artery disease, stroke Social History Smoking Status: Former Smoker (quit 5-10 years ago ) Smokeless Tobacco Use: No Alcohol Use: none Drug Use: none Marital Status: Housing status: lives alone Allergies Coded Allergies: No Known Allergies (Unverified , 09/04/16) Medications Acetaminophen (Tylenol), 325 MG PO prn Aspirin (Aspirin Ec), 81 MG PO DAILY Atorvastatin (Lipitor), 1 TAB PO DAILY Benazepril (Lotensin), 20 MG PO DAILY Bimatoprost (Lumigan), 1 DROPS OP HS Clopidogrel Bisulfate (Clopidogrel), 75 MG PO QAM Hydrochlorothiazide (Hydrochlorothiazide), 1 TAB PO DAILY Metoprolol Succinate (Toprol Xl), 1 TAB PO DAILY Sertraline (Zoloft), 1.5 TAB PO DAILY Review of Systems Constitutional: No chills, No fever, No sweats Eyes: No worsening of vision Respiratory: + shortness of breath, No cough, No sputum, No wheezing Cardiovascular: + edema, No chest pain Abdomen: No diarrhea, No nausea, No pain, No vomiting Musculoskeletal: + joint pain (OA in knee and shoulder especially ) Genitourinary - Male: No dysuria Neurologic: No memory loss, No paralysis, No weakness Hematologic / Lymphatic: No abnormal bleeding/bruising Physical Exam Vital Signs (24 Hours) Date Time Temp Pulse Resp B/P Pulse Ox O2 Delivery O2 Flow Rate FiO2 09/05/16 07:11 36.6 45 20 114/70 99 09/05/16 04:00 93 Nasal Cannula 2.0 09/05/16 04:00 36.4 66 20 128/72 93 2.0 09/05/16 01:50 36.5 62 20 120/60 95 09/05/16 01:20 36.3 59 20 124/59 95 09/05/16 00:50 36.6 64 20 119/63 95 09/05/16 00:35 36.3 64 20 119/63 94 2.0 09/05/16 00:20 36.5 55 16 133/67 94 2.0 09/05/16 00:00 94 Nasal Cannula 2.0 09/04/16 23:36 36.3 53 18 128/68 97 Nasal Cannula 2.0 09/04/16 20:10 36.7 51 18 119/63 95 Nasal Cannula 2.0 09/04/16 20:00 Nasal Cannula 2.0 09/04/16 17:25 36.3 61 18 128/73 96 Nasal Cannula 2.0 09/04/16 14:48 58 20 118/98 97 Nasal Cannula 2.0 09/04/16 14:22 58 22 123/65 97 Nasal Cannula 2.0 09/04/16 13:54 63 09/04/16 12:26 76 22 148/79 92 Nasal Cannula 2.0 09/04/16 11:54 95 Nasal Cannula 2.0 09/04/16 11:25 70 09/04/16 11:01 94 Room Air 09/04/16 11:01 36.7 71 22 159/74 94 Room Air 09/04/16 11:01 94 Room Air General Appearance: WD/WN, no apparent distress Head: normocephalic, atraumatic Eyes: normal inspection ENT: normal ENT inspection Neck: supple, no adenopathy, no carotid bruits, trachea midline, + JVD Respiratory/Chest: chest non-tender, lungs clear, normal breath sounds, no respiratory distress, no accessory muscle use Cardiovascular: regular rate, rhythm, + JVD, + systolic murmur (III/ best heard midline ) Abdomen/GI: normal bowel sounds, non tender, soft, + hepatomegaly Back: normal inspection, no CVA tenderness, no muscle spasm Extremities/Musculoskelatal: no calf tenderness, normal capillary refill, normal range of motion, + pedal edema (1+ pitting edema ) Neurologic/Psych: alert, normal mood/affect, normal reflexes, oriented x 3 Skin: normal color, warm/dry Diagnostics Laboratory Results Results Past 24 Hours Test 09/04/16 11:20 09/04/16 11:42 09/04/16 17:40 09/04/16 22:00 Range/Units White Blood Count 7.31 4.8-10.8 K/uL Red Blood Count 4.00 4.7-6.1 M/uL Hemoglobin 8.4 7.9 8.0 14.0-18.0 g/dL Hematocrit 28.0 27.0 27.4 42-52 % Mean Corpuscular Volume 70.0 80-100 fL Mean Corpuscular Hemoglobin 21.0 25-34 pg Mean Corpuscular Hemoglobin Concent 30.0 32-36 g/dl Platelet Count 281 130-400 K/uL Mean Platelet Volume 10.2 7.4-10.4 fL Neutrophils (%) (Auto) 84.0 % Lymphocytes (%) (Auto) 8.9 % Monocytes (%) (Auto) 6.2 % Eosinophils (%) (Auto) 0.3 % Basophils (%) (Auto) 0.3 % Neutrophils # (Auto) 6.15 1.4-6.5 K/uL Lymphocytes # (Auto) 0.65 1.2-3.4 K/uL Monocytes # (Auto) 0.45 0.11-0.59 K/uL Eosinophils # (Auto) 0.02 0-0.5 K/uL Basophils # (Auto) 0.02 0-0.2 K/uL RDW Standard Deviation 48.9 36.4-46.3 fL RDW Coefficient of Variation 19.2 11.5-14.5 % Immature Granulocyte % (Auto) 0.3 % Immature Granulocyte # (Auto) 0.02 0.00-0.02 K/uL Polychromasia 1+ Hypochromasia PRESENT Poikilocytosis PRESENT Anisocytosis PRESENT Microcytosis PRESENT Ovalocytes 1+ Prothrombin Time 15.2 9.0-12.0 SECONDS Prothromb Time International Ratio 1.4 0.9-1.1 Activated Partial Thromboplast Time 25.8 21.0-31.0 SECONDS Partial Thromboplastin Ratio 1.0 Sodium Level 133 136-145 mmol/L Potassium Level 4.1 3.5-5.1 mmol/L Chloride Level 98 98-107 mmol/L Carbon Dioxide Level 24 21-32 mmol/L Anion Gap 11.0 20.0 16-25 mmol/L Blood Urea Nitrogen 18 7-18 mg/dl Creatinine 0.86 0.60-1.40 mg/dl Est Creatinine Clear Calc Drug Dose 84.8 ml/min Estimated GFR () 100.4 Estimated GFR (Non- 86.6 BUN/Creatinine Ratio 20.5 10-20 Random Glucose 113 70-99 mg/dl Calcium Level 8.6 8.5-10.1 mg/dl Magnesium Level 2.1 1.8-2.4 mg/dl Total Bilirubin 0.5 0.2-1 mg/dl Aspartate Amino Transf (AST/SGOT) 24 15-37 U/L Alanine Aminotransferase (ALT/SGPT) 30 12-78 U/L Alkaline Phosphatase 246 45-117 U/L Total Creatine Kinase 47 39-308 U/L Creatine Kinase MB 2.8 0.5-3.6 ng/ml Creatine Kinase MB Ratio 6.0 0-3.0 Total Protein 6.5 6.4-8.2 gm/dl Albumin 3.3 3.4-5.0 gm/dl Globulin 3.2 2.5-4.0 gm/dl Albumin/Globulin Ratio 1.0 0.9-2 Lipase 116 73-393 U/L Thyroid Stimulating Hormone (TSH) 2.810 0.300-4.500 uIu/ml Bedside Hemoglobin 10.2 14.0-18.0 g/dl Bedside Hematocrit 30 42-52 % Bedside Sodium 132 135-144 mEq/L Bedside Potassium 4.1 3.3-5.0 mEq/L Bedside Chloride 93 101-112 mEq/L Bedside Total CO2 23 24-31 mEq/l Bedside Blood Urea Nitrogen 17 7-18 mg/dl Bedside Creatinine 0.8 0.6-1.3 mg/dl Bedside Glucose (other) 115 70-99 mg/dl Bedside Ionized Calcium (Dasia) 1.17 1.12-1.32 mmol/l Pro-B-Type Natriuretic Peptide 10724 0-900 pg/ml Test 09/05/16 05:31 Range/Units White Blood Count 6.68 4.8-10.8 K/uL Red Blood Count 4.25 4.7-6.1 M/uL Hemoglobin 9.1 14.0-18.0 g/dL Hematocrit 30.4 42-52 % Mean Corpuscular Volume 71.5 80-100 fL Mean Corpuscular Hemoglobin 21.4 25-34 pg Mean Corpuscular Hemoglobin Concent 29.9 32-36 g/dl Platelet Count 261 130-400 K/uL Mean Platelet Volume 10.6 7.4-10.4 fL Neutrophils (%) (Auto) 71.7 % Lymphocytes (%) (Auto) 16.6 % Monocytes (%) (Auto) 9.6 % Eosinophils (%) (Auto) 1.3 % Basophils (%) (Auto) 0.7 % Neutrophils # (Auto) 4.78 1.4-6.5 K/uL Lymphocytes # (Auto) 1.11 1.2-3.4 K/uL Monocytes # (Auto) 0.64 0.11-0.59 K/uL Eosinophils # (Auto) 0.09 0-0.5 K/uL Basophils # (Auto) 0.05 0-0.2 K/uL RDW Standard Deviation 50.0 36.4-46.3 fL RDW Coefficient of Variation 19.1 11.5-14.5 % Immature Granulocyte % (Auto) 0.1 % Immature Granulocyte # (Auto) 0.01 0.00-0.02 K/uL Tear Drop Cells 1+ Ovalocytes 1+ Acanthocytes 1+ Sodium Level 134 136-145 mmol/L Potassium Level 3.6 3.5-5.1 mmol/L Chloride Level 97 98-107 mmol/L Carbon Dioxide Level 27 21-32 mmol/L Anion Gap 10.0 3-11 mmol/L Blood Urea Nitrogen 16 7-18 mg/dl Creatinine 1.10 0.60-1.40 mg/dl Est Creatinine Clear Calc Drug Dose 66.3 ml/min Estimated GFR () 77.3 Estimated GFR (Non- 66.7 BUN/Creatinine Ratio 14.8 10-20 Random Glucose 79 70-99 mg/dl Calcium Level 8.4 8.5-10.1 mg/dl Diagnostic Radiology CXR Insterstitial pulmonary edema and bilateral pleural effusions. Chest CT 1. No pulmonary identified although the segmental and subsegmental pulmonary arteries within the lower lobes are suboptimally assessed due to respiratory motion. 2. Interlobular septal thickening consistent with interstitial pulmonary edema. Groundglass opacities likely reflect pulmonary edema as well. 3. Large left and moderate right pleural effusions. Extensive left lower lobe volume loss with airspace opacity favors compressive atelectasis. 4. Moderate cardiomegaly and extensive coronary artery calcification. EKG Vent. rate 69 BPM [place] interval 198 ms QRS duration 98 ms QT/QTc 434/465 ms P-R-T axes [address] and T wave slight elevation in the lateral leads, Prolonged QT Impression Assessment and Plan This is a 70 y/o male with pmh significant for htn, chf with LV dysfunction and who presents with symptoms consistent with acute exacerbation of systolic dysfunction CHF and also potential GI bleeding. His pmh of aortic stenosis and systolic dysfunction alongside significant peripheral edema, hepatomegaly, and JVD are consistent with right-sided heart failure. Plan CHF, acute decompensated -Lasix IV 40 mg -Nitroglycerin prn -Oxygen 2L nasal cannula -encourage head/chest elevation to decrease preload -enalapril 20 mg po -I/Os -cardio consulted -echo ordered -monitor troponins HTN -toprol 50 mg PO -rest as above Possible GI bleed -continue pantoprazole -consider colonoscopy if stable Dyslipidemia -atorvatstatin 40 mg po Depression -continue zoloft 75mg PO Osteoarthritis -tylenol prn for pain DVT prophylaxis -patient on plavix 40 mg PO and aspiring 81 mg po Level of Care Telemetry Advanced Directives Existing Living Will: No Existing Power of Corporate Communications Specialist: No Resuscitation Status FULL RESUSCITATION DVT Prophylaxis other (aspirin and plavix )
--- NOTE | 2016-09-05 11:04 | GASTROINTESTINAL CONSULTATION ---
DATE OF CONSULTATION: 09/05/2016 REASON FOR CONSULTATION: Heme-positive stools, shortness of breath, anemia. REQUESTING PHYSICIAN: The hospitalist. CHIEF COMPLAINT: Shortness of breath. HISTORY OF PRESENT ILLNESS: The patient notes very occasional small amounts of bright red blood per rectum he attributes to hemorrhoids. Last colonoscopy as seen in the chart is [address] Lopez was to the cecum, there was diverticulosis with deformity of the sigmoid colon requiring a pediatric scope. The patient states he has never had an EGD before. He had some mild diffuse abdominal pain when he was exerting himself, associated with shortness of breath, otherwise no pain and no abdominal pain at present. No change in bowels, no dysphagia, no change in weight, no fever. No nausea, vomiting. No GERD. The patient had a hemoglobin on admission of 8.4 versus 12.2 on 03/30/2016. He came into the Emergency Room short of breath, lower extremity swelling, CHF, noted to have heme positive stool in the Emergency Room. He was on aspirin and Plavix for coronary artery disease, CHF and aortic stenosis. PAST MEDICAL HISTORY: ALLERGIES: Negative. MEDICATIONS ON ADMISSION: Tylenol, aspirin, Lipitor, Lotensin, Lumigan, Plavix, hydrochlorothiazide, metoprolol, Zoloft. PROBLEMS AND SURGERIES: CHF, coronary artery disease, aortic stenosis. FAMILY HISTORY: Negative for cancer. SOCIAL HISTORY: Tobacco: Former smoker. Ethanol on occasion. REVIEW OF SYSTEMS: CONSTITUTIONAL: Negative. EYES: Negative. EARS, NOSE, MOUTH, THROAT: Negative. CARDIOVASCULAR: Negative. RESPIRATORY: Shortness of breath as above. GENITOURINARY: Negative. MUSCULOSKELETAL: Arthritis. INTEGUMENTARY, NEUROLOGIC, PSYCH, ENDOCRINE, HEMATOLOGIC: Negative except as noted above. PHYSICAL EXAMINATION: GENERAL: Male, appears stated age, no acute distress. VITAL SIGNS: Most recent vital signs in the chart: Temp 36.6, pulse 45, respirations 20, BP 114/70, O2 saturation 99% on 2 liters. EYES: Conjunctivae and lids normal. ENT: Oropharynx clear. NECK: Without obvious mass or thyroid enlargement. RESPIRATORY: Normal effort. Clear to anterior auscultation. CARDIOVASCULAR: Without obvious murmur. EXTREMITIES: There is bilateral lower extremity edema. ABDOMEN: Positive bowel sounds, soft, nontender, no hepatosplenomegaly or masses are appreciated. RECTAL: Not repeated. LYMPH: No obvious neck or groin nodes. MUSCULOSKELETAL: Digits and nails normal. SKIN: Without obvious rash or induration anteriorly. NEUROLOGIC: Cranial nerves intact. Sensation intact. PSYCHIATRIC: Recent and remote memory good. Insight and judgment good. DATA: CT angiogram of the chest: Cardiomegaly, large left pleural effusion, moderate right pleural effusion, pulmonary edema, COPD. Chest x-ray: Pulmonary edema and bilateral pleural effusions. PT/INR is somewhat elevated at 1.4, PTT was normal. CMP abnormals: Alk phos 246. Lipase was normal. BNP elevated at 12,000. IMPRESSION AND PLAN: 1. Heme positive stool. He has a history of limited rectal bleeding, he attributes to hemorrhoids but not enough to explain anemia. No other clinical signs to suggest location in gut. Could be peptic disease which we will cover with Protonix but does not need a drip since he is not actively bleeding. We will do IV b.i.d. Once his cardiac status is optimized, can do an EGD and if no explanation, then the colonoscopy. 2. Anemia, likely from chronic gastrointestinal blood loss. Transfuse p.r.n. 3. Elevated alkaline phosphatase could be from liver congestion with congestive heart failure. Follow for now. 4. Severe diverticulosis requiring pediatric scope. No abdominal pain present to suggest diverticulitis. MTDD
[2016-09-05 11:16] LABS: HEMATOCRIT 28.1 % (42-52)
--- NOTE | 2016-09-05 14:07 | CARDIOLOGY CONSULTATION ---
DATE OF CONSULTATION: 09/05/2016 REASON FOR CONSULTATION: Congestive heart failure. CONSULTATION REQUESTED BY: Dr. Epps. HISTORY OF PRESENT ILLNESS: Mr. Rizo is a 70-year-old man with a history of hypertension, dyslipidemia, impaired-fasting glucose, mild to moderate aortic stenosis and ischemic cardiomyopathy with EF 35-40% and multivessel coronary artery disease status post multiple PCIs in the past who presented from his primary care's office in the setting of heart failure. Cardiology consulted for further management. As an outpatient, the patient followed by [place] and heart failure clinic. He was last seen after his last intervention back in March of 2016. The patient states that had been doing well up until the last several weeks, primarily last week where he has noted worsening lower extremity edema as well as progressive shortness of breath. He states that he can barely walk across his home before gets short of breath, maybe about 10 feet. Denies any chest pain, palpitations. Denies any recent fevers, chills or cold symptoms. Denies any significant changes to his diet or medications. Had a scheduled followup appointment with his primary care physician, Dr. Marshall where appeared to be in heart failure and was recommended to presented to the Emergency Department. Upon arrival, the patient was hemodynamically stable, satting 96% on 2 liters. He had a chest x-ray that showed pulmonary edema and bilateral pleural effusions as well as a CT scan of his chest which was negative for any PE and was positive for pulmonary edema and a large left and moderate right pleural effusion. He was started on IV diuretics having received 2 doses of IV Lasix 40 mg since being admitted. Since being admitted, he is down to 2 liters and states that he feels much improved today, still states that he is mildly short of breath and notes that his legs are still swollen. PAST MEDICAL HISTORY: 1. Ischemic cardiomyopathy, EF 35-40%. 2. Coronary artery disease status post prior PCI with drug-eluting stent, March 2016 had 2 drug-eluting stents, 2.25 x 18 Resolute to PDA and 2.75 x 30 Resolute to distal RCA in the PAV stents post-dilated with 3.5 NC balloon. Second intervention March 2016 had a 2.25 x 26 Resolute stent DEZ placed to first diagonal. 3. Mild to moderate aortic stenosis with calculated aortic valve area of 1.4, mean gradient of 22, there is also mild to moderate MR. 4. Depression. 5. Diverticulosis. 6. Hypertension. 7. Impaired fasting glucose. 8. Chronic osteoarthritis. 9. Gout. PAST SURGICAL HISTORY: Prior cataract surgery, prior inguinal hernia repair, prior knee surgery, prior PCIs as discussed above. FAMILY HISTORY: Family history of heart disease in his father, in his 80s; both father and mother had diabetes. SOCIAL HISTORY: He is a former smoker. He was previously and is now . Denies significant alcohol use and denies any illicit drugs. MEDICATIONS: Include amlodipine 5, benazepril 20, aspirin 81, atorvastatin 40, hydrochlorothiazide 12.5, metoprolol succinate 25, and sertraline 50. PHYSICAL EXAMINATION: VITAL SIGNS: Temperature 36.5, pulse 55, blood pressure 133/67, he is satting 94% on room air. GENERAL: The patient appears comfortable, mildly dyspneic, but no acute distress. HEENT: Sclerae are anicteric. Oropharynx is clear. He has moist mucous membranes. NECK: Supple. He has a jugular venous distention to approximately 8-9. No carotid bruits. LUNGS: He has got decreased breath sounds, left greater than right with few crackles at the right bases, has a few scattered wheezes. HEART: He has a 2/6 systolic ejection murmur heard best at the right upper sternal border. Otherwise, heart sounds are regular, distant, with no other appreciable rubs or gallops. ABDOMEN: Soft, nontender, nondistended with positive bowel sounds and no hepatosplenomegaly. EXTREMITIES: Warm. He has 2+ edema to his upper shins bilaterally. He has intact distal pulses. SKIN: Warm with no significant rashes or lesions. NEUROLOGIC: Cranial nerves II-XII are grossly intact. Remainder of exam is nonfocal. PSYCHIATRIC: He is alert and oriented x3 and mood and affect are appropriate. LABORATORY DATA: White blood cell count is 6.7; hemoglobin down to 7.9, has received blood transfusion now up to 9.1 this morning; platelet count 261. INR 1.0. Sodium 134, potassium 3.6, BUN 16; creatinine 1.1, up from 0.9 on admission. His ProBNP was elevated at 12,300. LFTs were within normal limits except for a mildly elevated alkaline phosphatase of 247 and albumin of 3.3. Initial EKG showed sinus rhythm with possible left atrial enlargement. There was ST/T wave abnormality in the lateral leads, unchanged from prior EKGs. Telemetry reviewed and showed sinus rhythm with one episode of brief nonsustained VT, approximately 4 beats. IMPRESSION AND PLAN: 1. Acute systolic heart failure. 2. Ischemic cardiomyopathy with multivessel coronary artery disease status post drug-eluting stents, approximately 5 months ago. 3. Blood loss anemia. 4. Suspected gastrointestinal bleed. 5. Hypertension. The patient with known ischemic cardiomyopathy here with new acute heart failure. He received IV diuretics yesterday and is negative 2 liters with improvement in symptoms but still with evidence of pulmonary and systemic venous congestion on exam. No clear precipitating factors for patient's new heart failure but will plan to repeat a echocardiogram today. Plan to continue diuresis with 40 IV of Lasix b.i.d. today and continue to follow urine output, electrolytes, and renal function. In addition to heart failure patient noted to have new anemia and concern for GI bleed. From a cardiac standpoint, following additional diuresis today, and unchanged echo could undergo endoscopy as soon as tomorrow. Will continue to follow while in the hospital. Thank you for allowing us to participate in the care of this patient. Please contact with any questions. LEROY
--- NOTE | 2016-09-05 14:16 | ECHOCARDIOGRAM REPORT ---
*NOTICE TO RECEIVING DEMOCRAT AGENCY This information is strictly Confidential and protected under [place] law. [place] law prohibits you from making any further disclosure of this information unless further disclosure is expressly permitted by the written consent of the person to whom it pertains or is authorized by law. A general authorization for the release of medical or other information is not sufficient for this purpose. Hospital accepts no responsibility if the information is made available to any other person, INCLUDING THE PATIENT. Interpretation Summary * Name: FELICITY SALINAS Study Date: 09/05/2016 12:20 PM BP: 114/61 mmHg * Patient Location: .[facility]\S\N288\S\2 HR: 68 * : 1945 (M/d/yyyy) Gender: Male Height: 69 in * Age: 70 yrs Ethnicity: [place] Weight: 186 lb * Ordering Physician: Willem Mata * Referring Physician: Self, Referred * Performed By: Ksenia Rodríguez [facility] [place] * * Reason For Study: STROKE * BSA: 2.0 m2 * -- Conclusions -- * 1. Moderately dilated LV with mild concentric LVH. * 2. Mild LV dysfunction. LVEF 45%. Mild inferior hypokinesis, severe posterior hypokinesis. * 3. Grade II diastolic dysfunction. * 4. Normal RV size and function. * 5. Mild to moderate . Mild AI. * 6. Mild to moderate MR. * 7. No prior studies for comparison. Procedure Details * A complete two-dimensional transthoracic echocardiogram was performed (2D, M-mode, Doppler and color flow Doppler). * A saline contrast injection was performed to assess for cardiac shunting. * The injection was performed through an intravenous line in the right arm. * The attending nurse who injected the saline contrast was REYNA ANDERSON CPL, RN. * A total of 20 cc of agitated saline was given. Left Ventricle * The left ventricle is moderately dilated. * There is mild concentric left ventricular hypertrophy. * Ejection Fraction = 45-50%. * There is mild inferior wall hypokinesis. * There is severe posterior wall hypokinesis. Right Ventricle * The right ventricle is grossly normal size. * The right ventricular systolic function is normal as assessed by tricuspid annular plane systolic excursion (TAPSE) (normal >1.5 cm). Atria * The left atrial size is normal. * Right atrial size is normal. * Injection of contrast documented no interatrial shunt. Mitral Valve * The mitral valve leaflets appear thickened, but open well. * There is no mitral valve stenosis. * There is mild to moderate mitral regurgitation. Tricuspid Valve * The tricuspid valve is not well visualized, but is grossly normal. * There is no tricuspid stenosis. * There is trace tricuspid regurgitation. Aortic Valve * The aortic valve is trileaflet. * Mild to moderate valvular aortic stenosis. * Mild aortic regurgitation. Pulmonic Valve * The pulmonary valve is not well seen, but the Doppler examination is normal without significant regurgitation or stenosis. * There is no pulmonic valvular stenosis. * There is no pulmonic valvular regurgitation. Great Vessels * The aortic root and proximal ascending aorta are normal sized. Pericardium/Pleural * There is no pericardial effusion. * Large left pleural effusion. Great Vessels * IVC 2.1 cm, < 50% change with respiration. Estimated RA pressure 8 mmHg Left Ventricular Diastolic Function * Diastolic dysfunction, Grade II, consistent with elevated left atrial pressure. MMode 2D Measurements and Calculations IVSd 1.3 cm IVSs 1.7 cm LVIDd 6.5 cm LVIDs 5.4 cm LVPWd 1.2 cm LVPWs 1.7 cm IVS/LVPW 1.0 FS 18.0 % EDV(Teich) 218.1 ml ESV(Teich) 138.5 ml EF(Teich) 36.5 % EDV(cubed) 278.2 ml ESV(cubed) 153.5 ml EF(cubed) 44.8 % % IVS thick 34.9 % % LVPW thick 36.8 % LV mass(C)d 380.4 grams LV mass(C)dI 189.9 grams/m\S\2 LV mass(C)s 429.1 grams LV mass(C)sI 214.2 grams/m\S\2 SV(Teich) 79.6 ml SI(Teich) 39.7 ml/m\S\2 SV(cubed) 124.8 ml SI(cubed) 62.3 ml/m\S\2 Ao root diam 3.7 cm Ao root area 10.8 cm\S\2 LA dimension 3.9 cm LA/Ao 1.1 LVOT diam 2.3 cm LVOT area 4.2 cm\S\2 LVAd ap4 42.2 cm\S\2 LVLd ap4 8.9 cm EDV(MOD-sp4) 168.5 ml EDV(sp4-el) 169.5 ml LVAs ap4 26.7 cm\S\2 LVLs ap4 6.9 cm ESV(MOD-sp4) 88.5 ml ESV(sp4-el) 87.4 ml EF(MOD-sp4) 47.5 % EF(sp4-el) 48.4 % SV(MOD-sp4) 80.0 ml SI(MOD-sp4) 39.9 ml/m\S\2 SV(sp4-el) 82.1 ml SI(sp4-el) 41.0 ml/m\S\2 Doppler Measurements and Calculations MV E max carol 133.2 cm/sec MV A max carol 82.0 cm/sec MV E/A 1.6 MV P1/2t max carol 147.1 cm/sec MV P1/2t 72.2 msec MVA(P1/2t) 3.0 cm\S\2 MV dec slope 596.5 cm/sec\S\2 MV dec time 0.30 sec Ao V2 max 312.3 cm/sec Ao max PG 39.0 mmHg Ao max PG (full) 35.9 mmHg Ao V2 mean 214.0 cm/sec Ao mean PG 20.5 mmHg Ao mean PG (full) 18.9 mmHg Ao V2 VTI 70.3 cm JOSE(I,A) 1.4 cm\S\2 JOSE(I,D) 1.4 cm\S\2 JOSE(V,A) 1.2 cm\S\2 JOSE(V,D) 1.2 cm\S\2 AI max carol 365.5 cm/sec AI max PG 53.4 mmHg AI dec slope 187.0 cm/sec\S\2 AI P1/2t 572.4 msec LV V1 max PG 3.1 mmHg LV V1 mean PG 1.6 mmHg LV V1 max 87.3 cm/sec LV V1 mean 57.3 cm/sec LV V1 VTI 23.6 cm MR max carol 523.5 cm/sec MR max PG 109.7 mmHg SV(Ao) 760.7 ml SI(Ao) 379.8 ml/m\S\2 SV(LVOT) 98.9 ml SI(LVOT) 49.4 ml/m\S\2 PA V2 max 108.3 cm/sec PA max PG 4.7 mmHg
[2016-09-05 16:39] LABS: POINT OF CARE PRO-BNP 6112 pg/ml (0-900)
[2016-09-05] MEDS ORDERED: FUROSEMIDE 40 MG/4 ML VIAL IV STA (17:26)
[2016-09-05] MEDS ORDERED: FUROSEMIDE INJ 40 MG in SYRINGE 0 ML IV SCH (17:45)
--- NOTE | 2016-09-05 19:08 | Progress Note ---
Subjective Date of Service: Sep 05, 2016. Subjective Pt evaluation today including: conversation w/ patient, physical exam, chart review, lab review, review of studies, review of inpatient medication list feeling better than when he came in. still sob compared to normal, but feels definitely better than before. notes that in the last week or so while he can' t of course remember everything he's had to eat - he's been on a run of eating a lot of noodles in chicken broth that he makes - which he realizes would definitely be pretty salty - since starting to do that he started to notice the swelling and worsening breathing. no other acute complaints seems fairly unaware of heme positive stools Problem List Medical Problems: (1) Alkaline phosphatase elevation Status: Acute (2) Anemia Status: Acute (3) Chest pain Status: Acute Review of Systems Respiratory: + shortness of breath (improving) ros otherwise negative except for as above Objective Vital Signs Date Time Temp Pulse Resp B/P Pulse Ox O2 Delivery O2 Flow Rate FiO2 09/05/16 16:00 Nasal Cannula 2.0 09/05/16 15:09 36.8 72 18 125/62 93 Nasal Cannula 2.0 09/05/16 12:00 Nasal Cannula 2.0 09/05/16 11:17 36.6 61 20 114/61 93 09/05/16 08:00 Nasal Cannula 2.0 09/05/16 07:11 36.6 45 20 114/70 99 09/05/16 04:00 93 Nasal Cannula 2.0 09/05/16 04:00 36.4 66 20 128/72 93 2.0 09/05/16 01:50 36.5 62 20 120/60 95 09/05/16 01:20 36.3 59 20 124/59 95 09/05/16 00:50 36.6 64 20 119/63 95 09/05/16 00:35 36.3 64 20 119/63 94 2.0 09/05/16 00:20 36.5 55 16 133/67 94 2.0 09/05/16 00:00 94 Nasal Cannula 2.0 09/04/16 23:36 36.3 53 18 128/68 97 Nasal Cannula 2.0 09/04/16 20:10 36.7 51 18 119/63 95 Nasal Cannula 2.0 09/04/16 20:00 Nasal Cannula 2.0 Physical Exam General Appearance: no apparent distress Eyes: EOMI ENT: hearing grossly normal Neck: trachea midline Respiratory/Chest: no respiratory distress, no accessory muscle use, + pertinent finding (decreased BS base L to about 1/3 up, faint rales base R, no rhonchi no wheeze good effort) Extremities: normal range of motion Neurologic/Psychiatric: vice president client services II-XII nml as tested, alert, normal mood/affect Skin: normal color, warm/dry Laboratory Results Last 24 Hours Test 09/04/16 22:00 09/05/16 05:31 09/05/16 10:57 09/05/16 18:34 Hemoglobin 8.0 g/dL 9.1 g/dL 8.5 g/dL Hematocrit 27.4 % 30.4 % 28.1 % White Blood Count 6.68 K/uL Red Blood Count 4.25 M/uL Mean Corpuscular Volume 71.5 fL Mean Corpuscular Hemoglobin 21.4 pg Mean Corpuscular Hemoglobin Concent 29.9 g/dl Platelet Count 261 K/uL Mean Platelet Volume 10.6 fL Neutrophils (%) (Auto) 71.7 % Lymphocytes (%) (Auto) 16.6 % Monocytes (%) (Auto) 9.6 % Eosinophils (%) (Auto) 1.3 % Basophils (%) (Auto) 0.7 % Neutrophils # (Auto) 4.78 K/uL Lymphocytes # (Auto) 1.11 K/uL Monocytes # (Auto) 0.64 K/uL Eosinophils # (Auto) 0.09 K/uL Basophils # (Auto) 0.05 K/uL RDW Standard Deviation 50.0 fL RDW Coefficient of Variation 19.1 % Immature Granulocyte % (Auto) 0.1 % Immature Granulocyte # (Auto) 0.01 K/uL Tear Drop Cells 1+ Ovalocytes 1+ Acanthocytes 1+ Sodium Level 134 mmol/L Potassium Level 3.6 mmol/L Chloride Level 97 mmol/L Carbon Dioxide Level 27 mmol/L Anion Gap 10.0 mmol/L Blood Urea Nitrogen 16 mg/dl Creatinine 1.10 mg/dl Est Creatinine Clear Calc Drug Dose 66.3 ml/min Estimated GFR () 77.3 Estimated GFR (Non- 66.7 BUN/Creatinine Ratio 14.8 Random Glucose 79 mg/dl Calcium Level 8.4 mg/dl Assessment and Plan acute hypoxic respiratory failure -due to pulmonary edema from CHF 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, 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 -due to sodium intake (at least w chicken broth, possibly with other foods as well) - started to educate on low sodium and on hidden sources of sodium - will continue to do so and will ask nut processing supervisor to assist in this as well -ongoing diuresis - still drops to 88% on room air quickly while i'm in the room with him + ongoing rales --> 40mg lasix addtional now -f/u BMP pleural effusions L>R -likely won't need thoracentesis, but once clinically appears euvolemic or dry, if still showing hypoxia or dyspnea - will need to give consideration to this anemia due to (probably slow) GI bleeding -appreciate anticipate endoscopic w/u -Hgb dropped ~4g since march, no appearance of hemorrhage, shock, etc - suspect slow bleed -w drug eluting stents only ~5 months ago - risks/benefits would favor continuing dual antiplatelets unless true hemorrhage -continue to follow - even as outpt will need regular serial CBC for near future -check iron studies since appearing chronic and mcv CAD -clinically stable - as above noted, risks of in stent thrombosis/STEMI certainly outweigh risks associated with what appears currently to be a "slow ooze' GI bleed DVT proph -pharmacologic strong relative contraindication due to above noted GI bleed and need to be on dual antiplatelets -has SCDs - likely low risk since good skin integrity - will continue -encourage ambulation as possible
[2016-09-05 20:09] LABS: BUN/CREATININE RATIO 13.9 (10-20); CALCIUM 8.6 mg/dl (8.5-10.1); CREATININE 1.2 mg/dl (0.60-1.40); MAGNESIUM 2.1 mg/dl (1.8-2.4); POTASSIUM 3.3 mmol/L (3.5-5.1)
[2016-09-05] MEDS: BIMATOPROST 0.01% OP SOLN 2.5 ML BTL OP SCH (20:47)
[2016-09-06] VITALS (9 sets, daily range): BP systolic 123–141; BP diastolic 68–76; PULSE 57–82; TEMP 36.4–37; O2SAT 91–99
[2016-09-06] MEDS: ACETAMINOPHEN 325 MG TAB PO PRN (00:47)
[2016-09-06 05:54] LABS: BASO % 0.7 %; BASO ABS # 0.04 K/uL (0-0.2); EOS % 1.9 %; HEMATOCRIT 28.4 % (42-52); IG% 0.2 %; LYMPH % 20.4 %; MEAN CELL VOLUME 71.4 fL (80-100); MEAN CORPUSCULAR HEMOGLOBIN 21.9 pg (25-34); MEAN CORPUSCULAR HGB CONC 30.6 g/dl (32-36); MEAN PLATELET VOLUME 9.3 fL (7.4-10.4); MONO % 10.7 %; NEUT % 66.1 %; PLATELET COUNT 214 K/uL (130-400); RED BLOOD COUNT 3.98 M/uL (4.7-6.1); WHITE BLOOD COUNT 5.89 K/uL (4.8-10.8)
[2016-09-06 06:24] LABS: BUN/CREATININE RATIO 18.1 (10-20); CALCIUM 7.9 mg/dl (8.5-10.1); CREATININE 1.2 mg/dl (0.60-1.40); POTASSIUM 3.2 mmol/L (3.5-5.1)
[2016-09-06 06:26] LABS: FERRITIN 18.4 ng/ml (8.0-388.0)
[2016-09-06 06:30] LABS: COMPLETE YES; OVALOCYTES 1+; TEAR DROP CELLS 1+
[2016-09-06] MEDS: ASPIRIN 81 MG ECTAB PO SCH (08:15)
[2016-09-06] MEDS: FUROSEMIDE INJ 40 MG in SYRINGE 0 ML IV SCH (08:15)
[2016-09-06] MEDS: PANTOprazole INJ 40 MG in SYRINGE 0 ML IV SCH ×2 (08:15→20:49)
[2016-09-06] MEDS: CLOPIDOGREL BISULFATE 75 MG TAB PO SCH (08:15)
[2016-09-06] MEDS: ATORVASTATIN 40 MG TAB PO SCH (08:15)
[2016-09-06] MEDS: METOPROLOL SUCC 50MG EXT REL TAB PO SCH (08:16)
[2016-09-06] MEDS: ENALAPRIL MALEATE 10 MG TAB PO SCH (08:16)
[2016-09-06] MEDS: SERTRALINE HCL 50 MG TAB PO SCH (08:17)
--- NOTE | 2016-09-06 08:56 | Clinical Documentation Query ---
CLINICAL DOCUMENTATION QUERY Dr. RODNEY, In your clinical opinion is this patient being managed for: (x ) Chronic kidney disease, stage 2 - see notes ( ) Other explanation of clinical findings (Please Explain) ( ) Unable to determine (Please Define) ( ) Need to Discuss ( ) Not Agree The medical record reflects the following clinical findings, treatment, and risk factors. Clinical Indicators:70 yo male presenting with acute on chronic combined systolic/diastolic CHF. Review of EMR showed GFR range of 60.1-86.6 Treatment: monitor PRP's Risk Factors: age, CHF, CAD, ischemic cardiomyopathy, HTN Please clarify and document your clinical opinion in the progress notes and discharge summary. Terms such as "probable", "suspected", "likely", "questionable", "possible", or "still to be ruled out" are acceptable. IF IN AGREEMENT, YOU MUST DOCUMENT ABOVE DIAGNOSTIC STATEMENT IN DAILY PROGRESS NOTES AND DISCHARGE SUMMARY. This document is not part of the patient's record. Thank You, Saira Mata RN [phone]
--- NOTE | 2016-09-06 09:01 | Gastroenterology Progress Note ---
Progress Note Date of Service: Sep 06, 2016 Subjective Pt evaluation today including: conversation w/ patient, physical exam, chart review, lab review, review of studies, review of inpatient medication list CC f/u anemia, heme pos stool HPI Pt states tolerating diet. No abd pain. No black nor bloody stools. Review of Systems Respiratory: + shortness of breath Cardiac: No chest pain Medications Current Inpatient Medications Medications (Trade) Dose Ordered Sig/Kaitlynn Route Start Time Stop Time Status Last Admin Dose Admin Ioversol (Optiray 320) 125 ml UD PRN IV 09/04/16 12:15 09/08/16 12:14 Acetaminophen (Tylenol Tab) 650 mg Q4H PRN PO 09/04/16 14:15 10/04/16 14:14 09/06/16 00:47 650 MG Al Hydrox/Mg Hydrox/Simethicone (Maalox Max Susp) 15 ml Q4H PRN PO 09/04/16 14:15 10/04/16 14:14 Ondansetron HCl (Zofran Inj) 4 mg Q6H PRN IV 09/04/16 14:15 10/04/16 14:14 Nitroglycerin (Nitrostat Tab) 0.4 mg UD PRN SL 09/04/16 14:15 10/04/16 14:14 Aspirin (Ecotrin Tab) 81 mg DAILY PO 09/05/16 09:00 10/05/16 08:59 09/06/16 08:15 81 MG Atorvastatin Calcium (Lipitor Tab) 40 mg DAILY PO 09/05/16 09:00 10/05/16 08:59 09/06/16 08:15 40 MG Clopidogrel Bisulfate (plAVix TAB) 75 mg QAM PO 09/05/16 09:00 10/05/16 08:59 09/06/16 08:15 75 MG Metoprolol Succinate (Toprol Xl Tab) 50 mg DAILY PO 09/05/16 09:00 10/05/16 08:59 09/06/16 08:16 50 MG Sertraline HCl (Zoloft Tab) 75 mg DAILY PO 09/05/16 09:00 10/05/16 08:59 09/06/16 08:17 75 MG Enalapril Maleate (Vasotec Tab) 20 mg DAILY PO 09/05/16 09:00 10/05/16 08:59 09/06/16 08:16 20 MG Bimatoprost 1 drops 1 drops HS OP 09/04/16 21:00 10/04/16 20:59 09/05/16 20:47 1 DROPS Furosemide 40 mg/ Syringe 4 ml @ 4 mls/min QAM IV 09/05/16 09:00 10/05/16 08:59 09/06/16 08:15 4 MLS/MIN Pantoprazole Sodium/Syringe (Protonix Inj/ Syringe) 10 ml @ 5 mls/min DAILY@ IV 09/05/16 09:00 10/05/16 08:59 09/06/16 08:15 5 MLS/MIN Objective Vital Signs Date Time Temp Pulse Resp B/P Pulse Ox O2 Delivery O2 Flow Rate FiO2 09/06/16 07:31 36.8 71 16 123/68 96 Nasal Cannula 3.0 09/06/16 04:15 37.0 82 20 129/71 91 09/06/16 04:00 94 Nasal Cannula 3.0 09/06/16 00:00 91 Room Air 09/05/16 23:28 36.4 91 20 128/55 91 Room Air 09/05/16 20:00 Nasal Cannula 2.0 09/05/16 19:58 36.9 74 18 124/63 95 2.0 09/05/16 16:00 Nasal Cannula 2.0 09/05/16 15:09 36.8 72 18 125/62 93 Nasal Cannula 2.0 09/05/16 12:00 Nasal Cannula 2.0 09/05/16 11:17 36.6 61 20 114/61 93 Physical Exam General Appearance: WD/WN, no apparent distress Respiratory/Chest: lungs clear, no respiratory distress Abdomen: normal bowel sounds, non tender, soft, no organomegaly Neurologic/Psych: normal mood/affect, oriented x 3 Laboratory Results Last 24 Hours Test 09/05/16 10:57 09/05/16 19:08 09/06/16 05:41 09/06/16 08:57 Hemoglobin 8.5 g/dL 8.7 g/dL Hematocrit 28.1 % 28.4 % Sodium Level 136 mmol/L 137 mmol/L Potassium Level 3.3 mmol/L 3.2 mmol/L Chloride Level 98 mmol/L 100 mmol/L Carbon Dioxide Level 28 mmol/L 28 mmol/L Anion Gap 10.0 mmol/L 9.0 mmol/L Blood Urea Nitrogen 17 mg/dl 22 mg/dl Creatinine 1.20 mg/dl 1.20 mg/dl Est Creatinine Clear Calc Drug Dose 55.7 ml/min 55.7 ml/min Estimated GFR () 69.6 69.6 Estimated GFR (Non- 60.1 60.1 BUN/Creatinine Ratio 13.9 18.1 Random Glucose 113 mg/dl 83 mg/dl Calcium Level 8.6 mg/dl 7.9 mg/dl Magnesium Level 2.1 mg/dl White Blood Count 5.89 K/uL Red Blood Count 3.98 M/uL Mean Corpuscular Volume 71.4 fL Mean Corpuscular Hemoglobin 21.9 pg Mean Corpuscular Hemoglobin Concent 30.6 g/dl Platelet Count 214 K/uL Mean Platelet Volume 9.3 fL Neutrophils (%) (Auto) 66.1 % Lymphocytes (%) (Auto) 20.4 % Monocytes (%) (Auto) 10.7 % Eosinophils (%) (Auto) 1.9 % Basophils (%) (Auto) 0.7 % Neutrophils # (Auto) 3.90 K/uL Lymphocytes # (Auto) 1.20 K/uL Monocytes # (Auto) 0.63 K/uL Eosinophils # (Auto) 0.11 K/uL Basophils # (Auto) 0.04 K/uL RDW Standard Deviation 50.3 fL RDW Coefficient of Variation 19.0 % Immature Granulocyte % (Auto) 0.2 % Immature Granulocyte # (Auto) 0.01 K/uL Tear Drop Cells 1+ Ovalocytes 1+ Iron Level 12 mcg/dl Total Iron Binding Capacity 391 mcg/dl Transferrin 291 mg/dl Transferrin % Saturation 3 % Ferritin 18.4 ng/ml Total Bilirubin 0.5 mg/dl Aspartate Amino Transf (AST/SGOT) 21 U/L Alanine Aminotransferase (ALT/SGPT) 26 U/L Alkaline Phosphatase 225 U/L Total Protein 5.7 gm/dl Albumin 2.8 gm/dl Globulin 2.9 gm/dl Albumin/Globulin Ratio 1.0 Assessment and Plan Heme positive stool--has history of limited rectal bleeding he attributes to hemorrhoids but not enough to explain anemia, no localizing clinical signs, could be PUD from ASA so cover with Protonix but does not need drip will do 40 mg IV bid. Once cardiac status optimized can do EGD and if no explanation then colonoscopy. At this point looking at friday for EGD depending on his clinical cours anemia likely from chronic GI blood loss-transfuse prn--slight drop this am bu no active bleeding elevated alk phos--could be from liver congestion from CHF--follow for now-- improved severe diverticulosis--needing pediatric scope at time of last colonoscopy 2008- -no abd pain at present to suggest diverticulitis. Others per hospitalist: CHF aortic stenosis
[2016-09-06] MEDS ORDERED: IRON SUCROSE INJ 100 MG in SODIUM CHLORIDE 0.9% 100ML 100 ML IV SCH (09:30)
[2016-09-06] MEDS: IRON COMPLEX POLYSACCHARIDE W/VIT C 150 MG CAP PO SCH ×2 (09:33→20:50)
[2016-09-06] MEDS ORDERED: POTASSIUM CHLORIDE 10 MEQ TABCR PO ONE (09:45)
--- NOTE | 2016-09-06 17:20 | Progress Note ---
Subjective Date of Service: Sep 06, 2016. Subjective Pt evaluation today including: conversation w/ patient, physical exam, chart review, lab review, conversation w/ portrait consultant, review of inpatient medication list feeling better overall breathing improved - still needing O2 though no other acute complaints re-explained working dx's and plans - after repeated discussions he expressed some understanding ros otherwise negative except for as above Problem List Medical Problems: (1) Alkaline phosphatase elevation Status: Acute (2) Anemia Status: Acute (3) Chest pain Status: Acute Review of Systems ros otherwise negative except for as above Objective Vital Signs Date Time Temp Pulse Resp B/P Pulse Ox O2 Delivery O2 Flow Rate FiO2 09/06/16 16:04 36.4 66 18 129/71 97 3.0 09/06/16 12:00 95 Nasal Cannula 3.0 09/06/16 11:26 36.4 57 16 126/68 99 Nasal Cannula 4.0 09/06/16 08:00 95 Nasal Cannula 3.0 09/06/16 07:31 36.8 71 16 123/68 96 Nasal Cannula 3.0 09/06/16 04:15 37.0 82 20 129/71 91 09/06/16 04:00 94 Nasal Cannula 3.0 09/06/16 00:00 91 Room Air 09/05/16 23:28 36.4 91 20 128/55 91 Room Air 09/05/16 20:00 Nasal Cannula 2.0 09/05/16 19:58 36.9 74 18 124/63 95 2.0 Physical Exam General Appearance: no apparent distress Eyes: EOMI ENT: hearing grossly normal Neck: trachea midline Respiratory/Chest: no respiratory distress, no accessory muscle use, + decreased breath sounds (base L. otherwise cta no r/r/w good effort) Cardiovascular: regular rate, rhythm Extremities: normal range of motion Neurologic/Psychiatric: services program manager II-XII nml as tested, alert, normal mood/affect Skin: normal color, warm/dry Laboratory Results Last 24 Hours Test 09/05/16 19:08 09/06/16 05:41 09/06/16 12:16 Sodium Level 136 mmol/L 137 mmol/L Potassium Level 3.3 mmol/L 3.2 mmol/L Chloride Level 98 mmol/L 100 mmol/L Carbon Dioxide Level 28 mmol/L 28 mmol/L Anion Gap 10.0 mmol/L 9.0 mmol/L Blood Urea Nitrogen 17 mg/dl 22 mg/dl Creatinine 1.20 mg/dl 1.20 mg/dl Est Creatinine Clear Calc Drug Dose 55.7 ml/min 55.7 ml/min Estimated GFR () 69.6 69.6 Estimated GFR (Non- 60.1 60.1 BUN/Creatinine Ratio 13.9 18.1 Random Glucose 113 mg/dl 83 mg/dl Calcium Level 8.6 mg/dl 7.9 mg/dl Magnesium Level 2.1 mg/dl White Blood Count 5.89 K/uL Red Blood Count 3.98 M/uL Hemoglobin 8.7 g/dL 9.3 g/dL Hematocrit 28.4 % Mean Corpuscular Volume 71.4 fL Mean Corpuscular Hemoglobin 21.9 pg Mean Corpuscular Hemoglobin Concent 30.6 g/dl Platelet Count 214 K/uL Mean Platelet Volume 9.3 fL Neutrophils (%) (Auto) 66.1 % Lymphocytes (%) (Auto) 20.4 % Monocytes (%) (Auto) 10.7 % Eosinophils (%) (Auto) 1.9 % Basophils (%) (Auto) 0.7 % Neutrophils # (Auto) 3.90 K/uL Lymphocytes # (Auto) 1.20 K/uL Monocytes # (Auto) 0.63 K/uL Eosinophils # (Auto) 0.11 K/uL Basophils # (Auto) 0.04 K/uL RDW Standard Deviation 50.3 fL RDW Coefficient of Variation 19.0 % Immature Granulocyte % (Auto) 0.2 % Immature Granulocyte # (Auto) 0.01 K/uL Tear Drop Cells 1+ Ovalocytes 1+ Iron Level 12 mcg/dl Total Iron Binding Capacity 391 mcg/dl Transferrin 291 mg/dl Transferrin % Saturation 3 % Ferritin 18.4 ng/ml Total Bilirubin 0.5 mg/dl Aspartate Amino Transf (AST/SGOT) 21 U/L Alanine Aminotransferase (ALT/SGPT) 26 U/L Alkaline Phosphatase 225 U/L Total Protein 5.7 gm/dl Albumin 2.8 gm/dl Globulin 2.9 gm/dl Albumin/Globulin Ratio 1.0 25-Hydroxy Vitamin D Total 26.9 ng/ml Assessment and Plan acute hypoxic respiratory failure -due to pulmonary edema and pleural effusion from CHF 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, 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 -due to sodium intake (at least w chicken broth, possibly with other foods as well) - ongoing education on low sodium -ongoing diuresis pleural effusions L>R -likely won't need thoracentesis, but once clinically appears euvolemic or dry, if still showing hypoxia or dyspnea - will need to give consideration to this anemia due to (probably slow) GI bleeding -appreciate anticipate endoscopic w/u -Hgb dropped ~4g since march, no appearance of hemorrhage, shock, etc - suspect slow bleed -w drug eluting stents only ~5 months ago - risks/benefits would favor continuing dual antiplatelets unless true hemorrhage -continue to follow - even as outpt will need regular serial CBC for near future CAD -clinically stable - as above noted, risks of in stent thrombosis/STEMI certainly outweigh risks associated with what appears currently to be a "slow ooze' GI bleed iron deficiency -relates to above -very low - will initially replace IV in addition to PO DVT proph -pharmacologic strong relative contraindication due to above noted GI bleed and need to be on dual antiplatelets -has SCDs - likely low risk since good skin integrity - will continue -encourage ambulation as possible hypokalemia -replace vitamin D insufficiency -supplement w 2000 IU daily
[2016-09-06] MEDS: BIMATOPROST 0.01% OP SOLN 2.5 ML BTL OP SCH (20:49)
[2016-09-07 07:26] LABS: BASO % 0.6 %; BASO ABS # 0.04 K/uL (0-0.2); EOS % 3.3 %; HEMATOCRIT 29.9 % (42-52); IG% 0.1 %; LYMPH % 19.3 %; LYMPH ABS # 1.29 K/uL (1.2-3.4); MEAN CELL VOLUME 71.5 fL (80-100); MEAN CORPUSCULAR HEMOGLOBIN 21.1 pg (25-34); MEAN CORPUSCULAR HGB CONC 29.4 g/dl (32-36); MEAN PLATELET VOLUME 9.7 fL (7.4-10.4); MONO % 10.8 %; NEUT % 65.9 %; PLATELET COUNT 238 K/uL (130-400); RED BLOOD COUNT 4.18 M/uL (4.7-6.1); WHITE BLOOD COUNT 6.67 K/uL (4.8-10.8)
[2016-09-07 07:57] LABS: ANISOCYTOSIS PRESENT; COMPLETE YES; HYPOCHROMIA PRESENT; MICROCYTOSIS PRESENT; POIKILOCYTOSIS PRESENT
[2016-09-07 07:58] VITALS: BP 125/73; PULSE 64; TEMP 36.7; O2SAT 97
[2016-09-07 08:00] VITALS: O2SAT 97
[2016-09-07 08:04] LABS: BUN/CREATININE RATIO 17.3 (10-20); CALCIUM 8.5 mg/dl (8.5-10.1); CREATININE 1.1 mg/dl (0.60-1.40); POTASSIUM 3.7 mmol/L (3.5-5.1)
[2016-09-07] MEDS: PANTOprazole INJ 40 MG in SYRINGE 0 ML IV SCH ×2 (08:09→20:44)
[2016-09-07] MEDS: IRON COMPLEX POLYSACCHARIDE W/VIT C 150 MG CAP PO SCH ×2 (08:10→20:43)
[2016-09-07] MEDS: CHOLECALCIFEROL 1000 INTER.UNIT TAB PO SCH (08:10)
[2016-09-07] MEDS: CLOPIDOGREL BISULFATE 75 MG TAB PO SCH (08:10)
[2016-09-07] MEDS: ATORVASTATIN 40 MG TAB PO SCH (08:10)
[2016-09-07] MEDS: METOPROLOL SUCC 50MG EXT REL TAB PO SCH (08:10)
[2016-09-07] MEDS: ASPIRIN 81 MG ECTAB PO SCH (08:10)
[2016-09-07] MEDS: ENALAPRIL MALEATE 10 MG TAB PO SCH (08:11)
[2016-09-07] MEDS: SERTRALINE HCL 50 MG TAB PO SCH (08:11)
[2016-09-07] MEDS: FUROSEMIDE INJ 40 MG in SYRINGE 0 ML IV SCH (09:03)
[2016-09-07] MEDS ORDERED: IRON SUCROSE INJ 100 MG in SODIUM CHLORIDE 0.9% 100ML 100 ML IV SCH (10:30)
[2016-09-07 14:40] VITALS: BP 110/64; PULSE 67; TEMP 36.6; O2SAT 95
--- NOTE | 2016-09-07 15:19 | Gastroenterology Progress Note ---
Progress Note Date of Service: Sep 07, 2016 Subjective Pt evaluation today including: conversation w/ patient, physical exam, chart review, lab review, review of studies, review of inpatient medication list cc f/u heme pos stool, anemia HPI pt denies abd pain or bloody or black stools. NO n/v. Review of Systems Respiratory: + shortness of breath (better) Cardiac: No chest pain Medications Current Inpatient Medications Medications (Trade) Dose Ordered Sig/Kaitlynn Route Start Time Stop Time Status Last Admin Dose Admin Ioversol (Optiray 320) 125 ml UD PRN IV 09/04/16 12:15 09/08/16 12:14 Acetaminophen (Tylenol Tab) 650 mg Q4H PRN PO 09/04/16 14:15 10/04/16 14:14 09/06/16 00:47 650 MG Al Hydrox/Mg Hydrox/Simethicone (Maalox Max Susp) 15 ml Q4H PRN PO 09/04/16 14:15 10/04/16 14:14 Ondansetron HCl (Zofran Inj) 4 mg Q6H PRN IV 09/04/16 14:15 10/04/16 14:14 Nitroglycerin (Nitrostat Tab) 0.4 mg UD PRN SL 09/04/16 14:15 10/04/16 14:14 Aspirin (Ecotrin Tab) 81 mg DAILY PO 09/05/16 09:00 10/05/16 08:59 09/07/16 08:10 81 MG Atorvastatin Calcium (Lipitor Tab) 40 mg DAILY PO 09/05/16 09:00 10/05/16 08:59 09/07/16 08:10 40 MG Clopidogrel Bisulfate (plAVix TAB) 75 mg QAM PO 09/05/16 09:00 10/05/16 08:59 09/07/16 08:10 75 MG Metoprolol Succinate (Toprol Xl Tab) 50 mg DAILY PO 09/05/16 09:00 10/05/16 08:59 09/07/16 08:10 50 MG Sertraline HCl (Zoloft Tab) 75 mg DAILY PO 09/05/16 09:00 10/05/16 08:59 09/07/16 08:11 75 MG Enalapril Maleate (Vasotec Tab) 20 mg DAILY PO 09/05/16 09:00 10/05/16 08:59 09/07/16 08:11 20 MG Bimatoprost 1 drops 1 drops HS OP 09/04/16 21:00 10/04/16 20:59 09/06/16 20:49 1 DROPS Furosemide 40 mg/ Syringe 4 ml @ 4 mls/min QAM IV 09/05/16 09:00 10/05/16 08:59 09/07/16 09:03 4 MLS/MIN Pantoprazole Sodium/Syringe (Protonix Inj/ Syringe) 10 ml @ 5 mls/min DAILY@ IV 09/05/16 09:00 10/05/16 08:59 09/07/16 08:09 5 MLS/MIN Polysaccharide Iron Complex (Niferex-150 w/ Vit C Cap) 150 mg BID PO 09/06/16 10:00 10/06/16 09:59 09/07/16 08:10 150 MG Cholecalciferol (Vitamin D Tab) 2,000 inter.unit QAM PO 09/07/16 08:00 10/07/16 07:59 09/07/16 08:10 2,000 INTER.UNIT Objective Vital Signs Date Time Temp Pulse Resp B/P Pulse Ox O2 Delivery O2 Flow Rate FiO2 09/07/16 14:40 36.6 67 16 110/64 95 Nasal Cannula 09/07/16 08:00 Nasal Cannula 3.0 09/07/16 08:00 97 Room Air 3.0 09/07/16 07:58 36.7 64 17 125/73 97 Nasal Cannula 3.0 09/07/16 00:00 Nasal Cannula 3.0 09/06/16 23:59 36.7 75 20 141/76 97 2.0 09/06/16 16:04 36.4 66 18 129/71 97 3.0 Physical Exam General Appearance: WD/WN, no apparent distress Respiratory/Chest: lungs clear, no respiratory distress Cardiovascular: regular rate, rhythm Abdomen: normal bowel sounds, non tender, soft, no organomegaly Neurologic/Psych: alert, normal mood/affect Laboratory Results Last 24 Hours Test 09/07/16 06:55 White Blood Count 6.67 K/uL Red Blood Count 4.18 M/uL Hemoglobin 8.8 g/dL Hematocrit 29.9 % Mean Corpuscular Volume 71.5 fL Mean Corpuscular Hemoglobin 21.1 pg Mean Corpuscular Hemoglobin Concent 29.4 g/dl Platelet Count 238 K/uL Mean Platelet Volume 9.7 fL Neutrophils (%) (Auto) 65.9 % Lymphocytes (%) (Auto) 19.3 % Monocytes (%) (Auto) 10.8 % Eosinophils (%) (Auto) 3.3 % Basophils (%) (Auto) 0.6 % Neutrophils # (Auto) 4.39 K/uL Lymphocytes # (Auto) 1.29 K/uL Monocytes # (Auto) 0.72 K/uL Eosinophils # (Auto) 0.22 K/uL Basophils # (Auto) 0.04 K/uL RDW Standard Deviation 50.5 fL RDW Coefficient of Variation 19.3 % Immature Granulocyte % (Auto) 0.1 % Immature Granulocyte # (Auto) 0.01 K/uL Hypochromasia PRESENT Poikilocytosis PRESENT Anisocytosis PRESENT Microcytosis PRESENT Sodium Level 136 mmol/L Potassium Level 3.7 mmol/L Chloride Level 99 mmol/L Carbon Dioxide Level 29 mmol/L Anion Gap 8.0 mmol/L Blood Urea Nitrogen 19 mg/dl Creatinine 1.10 mg/dl Est Creatinine Clear Calc Drug Dose 60.7 ml/min Estimated GFR () 77.3 Estimated GFR (Non- 66.7 BUN/Creatinine Ratio 17.3 Random Glucose 103 mg/dl Calcium Level 8.5 mg/dl Assessment and Plan Heme positive stool--has history of limited rectal bleeding he attributes to hemorrhoids but not enough to explain anemia, no localizing clinical signs, could be PUD from ASA so cover with Protonix po bid--if patient is till inpatient Friday could do EGD then. anemia likely from chronic GI blood loss-transfuse prn--stable elevated alk phos--could be from liver congestion from CHF--follow for now-- check again in am severe diverticulosis--needing pediatric scope at time of last colonoscopy 2008- -no abd pain at present to suggest diverticulitis. Others per hospitalist: CHF aortic stenosis
[2016-09-07 16:00] VITALS: O2SAT 96
--- NOTE | 2016-09-07 18:06 | Progress Note ---
Subjective Date of Service: Sep 07, 2016. Subjective Pt evaluation today including: conversation w/ patient, physical exam, chart review, lab review, review of inpatient medication list breathing feels better no bloody stools no problems now feeling overall better understanding situation better planning for endoscopic w/u early next week Problem List Medical Problems: (1) Alkaline phosphatase elevation Status: Acute (2) Anemia Status: Acute (3) Chest pain Status: Acute Review of Systems ros otherwise negative except for as above Objective Vital Signs Date Time Temp Pulse Resp B/P Pulse Ox O2 Delivery O2 Flow Rate FiO2 09/07/16 16:00 96 Room Air 09/07/16 16:00 Room Air 09/07/16 14:40 36.6 67 16 110/64 95 Nasal Cannula 09/07/16 08:00 Nasal Cannula 3.0 09/07/16 08:00 97 Nasal Cannula 3.0 09/07/16 07:58 36.7 64 17 125/73 97 Nasal Cannula 3.0 09/07/16 00:00 Nasal Cannula 3.0 09/06/16 23:59 36.7 75 20 141/76 97 2.0 Physical Exam General Appearance: no apparent distress Eyes: EOMI ENT: hearing grossly normal Neck: trachea midline Respiratory/Chest: no respiratory distress, no accessory muscle use, + decreased breath sounds (base L, 1/3 up lung field. 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, alert, normal mood/affect Skin: normal color, warm/dry Laboratory Results Last 24 Hours Test 09/07/16 06:55 White Blood Count 6.67 K/uL Red Blood Count 4.18 M/uL Hemoglobin 8.8 g/dL Hematocrit 29.9 % Mean Corpuscular Volume 71.5 fL Mean Corpuscular Hemoglobin 21.1 pg Mean Corpuscular Hemoglobin Concent 29.4 g/dl Platelet Count 238 K/uL Mean Platelet Volume 9.7 fL Neutrophils (%) (Auto) 65.9 % Lymphocytes (%) (Auto) 19.3 % Monocytes (%) (Auto) 10.8 % Eosinophils (%) (Auto) 3.3 % Basophils (%) (Auto) 0.6 % Neutrophils # (Auto) 4.39 K/uL Lymphocytes # (Auto) 1.29 K/uL Monocytes # (Auto) 0.72 K/uL Eosinophils # (Auto) 0.22 K/uL Basophils # (Auto) 0.04 K/uL RDW Standard Deviation 50.5 fL RDW Coefficient of Variation 19.3 % Immature Granulocyte % (Auto) 0.1 % Immature Granulocyte # (Auto) 0.01 K/uL Hypochromasia PRESENT Poikilocytosis PRESENT Anisocytosis PRESENT Microcytosis PRESENT Sodium Level 136 mmol/L Potassium Level 3.7 mmol/L Chloride Level 99 mmol/L Carbon Dioxide Level 29 mmol/L Anion Gap 8.0 mmol/L Blood Urea Nitrogen 19 mg/dl Creatinine 1.10 mg/dl Est Creatinine Clear Calc Drug Dose 60.7 ml/min Estimated GFR () 77.3 Estimated GFR (Non- 66.7 BUN/Creatinine Ratio 17.3 Random Glucose 103 mg/dl Calcium Level 8.5 mg/dl Assessment and Plan acute hypoxic respiratory failure -due to pulmonary edema and pleural effusion from CHF, weaning O2, improving 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, 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 -due to sodium intake (at least w chicken broth, possibly with other foods as well) - ongoing education on low sodium -ongoing diuresis - improving pleural effusions L>R -likely won't need thoracentesis, but once clinically appears euvolemic or dry, if still showing hypoxia or dyspnea - will need to give consideration to this -will definitely at least need f/u CXR anemia due to (probably slow) GI bleeding -appreciate anticipate endoscopic w/u -Hgb dropped ~4g since march, no appearance of hemorrhage, shock, etc - suspect slow bleed -w drug eluting stents only ~5 months ago - risks/benefits would favor continuing dual antiplatelets unless true hemorrhage -continue to follow - even as outpt will need regular serial CBC for near future CAD -clinically stable - as above noted, risks of in stent thrombosis/STEMI certainly outweigh risks associated with what appears currently to be a "slow ooze' GI bleed iron deficiency -relates to above -very low - will initially replace IV in addition to PO DVT proph -pharmacologic strong relative contraindication due to above noted GI bleed and need to be on dual antiplatelets -has SCDs - likely low risk since good skin integrity - will continue -encourage ambulation as possible hypokalemia -replaced vitamin D insufficiency -supplement w 2000 IU daily diminished eGFR by cockroft gault - -creatinines in overall normal to slightly high normal range -may represent stage 2 CKD vs "age adjusted normal" -- will definitely need to continue to follow on diuretics
[2016-09-07] MEDS: BIMATOPROST 0.01% OP SOLN 2.5 ML BTL OP SCH (20:44)
[2016-09-07 23:58] VITALS: BP 130/68; PULSE 76; TEMP 37; O2SAT 90
[2016-09-08 07:39] LABS: BASO % 0.8 %; BASO ABS # 0.05 K/uL (0-0.2); EOS % 4.6 %; HEMATOCRIT 29.9 % (42-52); IG% 0.2 %; LYMPH % 19.3 %; LYMPH ABS # 1.17 K/uL (1.2-3.4); MEAN CELL VOLUME 72.6 fL (80-100); MEAN CORPUSCULAR HEMOGLOBIN 21.6 pg (25-34); MEAN CORPUSCULAR HGB CONC 29.8 g/dl (32-36); MEAN PLATELET VOLUME 10.1 fL (7.4-10.4); MONO % 8.3 %; NEUT % 66.8 %; PLATELET COUNT 236 K/uL (130-400); RED BLOOD COUNT 4.12 M/uL (4.7-6.1); WHITE BLOOD COUNT 6.05 K/uL (4.8-10.8)
[2016-09-08 07:44] VITALS: BP 119/68; PULSE 62; TEMP 36.2; O2SAT 91
[2016-09-08] MEDS: FUROSEMIDE INJ 40 MG in SYRINGE 0 ML IV SCH (07:44)
[2016-09-08] MEDS: METOPROLOL SUCC 50MG EXT REL TAB PO SCH (07:45)
[2016-09-08] MEDS: CLOPIDOGREL BISULFATE 75 MG TAB PO SCH (07:45)
[2016-09-08] MEDS: IRON COMPLEX POLYSACCHARIDE W/VIT C 150 MG CAP PO SCH ×2 (07:45→19:56)
[2016-09-08] MEDS: ATORVASTATIN 40 MG TAB PO SCH (07:45)
[2016-09-08] MEDS: ASPIRIN 81 MG ECTAB PO SCH (07:45)
[2016-09-08] MEDS: ENALAPRIL MALEATE 10 MG TAB PO SCH (07:45)
[2016-09-08] MEDS: SERTRALINE HCL 50 MG TAB PO SCH (07:46)
[2016-09-08] MEDS: CHOLECALCIFEROL 1000 INTER.UNIT TAB PO SCH (07:46)
[2016-09-08 08:05] LABS: BUN/CREATININE RATIO 15.7 (10-20); CALCIUM 8.4 mg/dl (8.5-10.1); CREATININE 1.1 mg/dl (0.60-1.40); POTASSIUM 3.6 mmol/L (3.5-5.1)
[2016-09-08 08:14] LABS: COMPLETE YES; HYPOCHROMIA PRESENT; MICROCYTOSIS PRESENT; POIKILOCYTOSIS PRESENT; TEAR DROP CELLS 1+
[2016-09-08] MEDS: PANTOprazole INJ 40 MG in SYRINGE 0 ML IV SCH ×3 (08:53→20:48)
--- NOTE | 2016-09-08 11:40 | DIAGNOSTIC IMAGING REPORT ---
BILATERAL LOWER EXTREMITY VENOUS DOPPLER CLINICAL HISTORY: Calf pain. COMPARISON STUDY: Left lower extremity venous Doppler March 16, 2015 TECHNIQUE: Sonography of the deep venous system of the bilateral lower extremities was performed. Compression and augmentation were evaluated. FINDINGS: The bilateral common femoral, superficial femoral and popliteal veins were compressible. Augmentation was normal. Flow was shown within the deep calf vessels. IMPRESSION: No evidence of deep venous thrombus within the bilateral lower extremities. Electronically signed by: Lonnie Almanza M.D. 09/08/2016 11:38 AM Dictated Date/Time: 09/08/2016 11:38 AM
[2016-09-08] MEDS ORDERED: IRON SUCROSE INJ 100 MG in SODIUM CHLORIDE 0.9% 100ML 100 ML IV ONE (12:00)
--- NOTE | 2016-09-08 12:04 | Gastroenterology Progress Note ---
Progress Note Date of Service: Sep 08, 2016 Subjective Pt evaluation today including: conversation w/ patient, conversation w/ family , physical exam, chart review, lab review, review of studies cc f/u heme pos stool, anemia HPI Pt thinks his breathing is back to baselin. No abd pain. No black nor bloody stools, No N/V. Review of Systems Respiratory: No shortness of breath Cardiac: No chest pain Medications Current Inpatient Medications Medications (Trade) Dose Ordered Sig/Kaitlynn Route Start Time Stop Time Status Last Admin Dose Admin Ioversol (Optiray 320) 125 ml UD PRN IV 09/04/16 12:15 09/08/16 12:14 Acetaminophen (Tylenol Tab) 650 mg Q4H PRN PO 09/04/16 14:15 10/04/16 14:14 09/06/16 00:47 650 MG Al Hydrox/Mg Hydrox/Simethicone (Maalox Max Susp) 15 ml Q4H PRN PO 09/04/16 14:15 10/04/16 14:14 Ondansetron HCl (Zofran Inj) 4 mg Q6H PRN IV 09/04/16 14:15 10/04/16 14:14 Nitroglycerin (Nitrostat Tab) 0.4 mg UD PRN SL 09/04/16 14:15 10/04/16 14:14 Aspirin (Ecotrin Tab) 81 mg DAILY PO 09/05/16 09:00 10/05/16 08:59 09/08/16 07:45 81 MG Atorvastatin Calcium (Lipitor Tab) 40 mg DAILY PO 09/05/16 09:00 10/05/16 08:59 09/08/16 07:45 40 MG Clopidogrel Bisulfate (plAVix TAB) 75 mg QAM PO 09/05/16 09:00 10/05/16 08:59 09/08/16 07:45 75 MG Metoprolol Succinate (Toprol Xl Tab) 50 mg DAILY PO 09/05/16 09:00 10/05/16 08:59 09/08/16 07:45 50 MG Sertraline HCl (Zoloft Tab) 75 mg DAILY PO 09/05/16 09:00 10/05/16 08:59 09/08/16 07:46 75 MG Enalapril Maleate (Vasotec Tab) 20 mg DAILY PO 09/05/16 09:00 10/05/16 08:59 09/08/16 07:45 20 MG Bimatoprost 1 drops 1 drops HS OP 09/04/16 21:00 10/04/16 20:59 09/07/16 20:44 1 DROPS Furosemide 40 mg/ Syringe 4 ml @ 4 mls/min QAM IV 09/05/16 09:00 10/05/16 08:59 09/08/16 07:44 4 MLS/MIN Pantoprazole Sodium/Syringe (Protonix Inj/ Syringe) 10 ml @ 5 mls/min DAILY@,21 IV 09/05/16 09:00 10/05/16 08:59 09/08/16 08:53 5 MLS/MIN Polysaccharide Iron Complex (Niferex-150 w/ Vit C Cap) 150 mg BID PO 09/06/16 10:00 10/06/16 09:59 09/08/16 07:45 150 MG Cholecalciferol 2000 inter.unit 2,000 inter.unit QAM PO 09/07/16 08:00 10/07/16 07:59 09/08/16 07:46 2,000 INTER.UNIT Iron Sucrose/ Sodium Chloride (Venofer Inj/Nss 100ml) 105 ml @ 420 mls/hr TODAY@1200 ONCE IV 09/08/16 12:00 09/08/16 12:14 09/08/16 11:38 420 MLS/HR Objective Vital Signs Date Time Temp Pulse Resp B/P Pulse Ox O2 Delivery O2 Flow Rate FiO2 09/08/16 08:00 Room Air 09/08/16 07:44 36.2 62 18 119/68 91 Room Air 09/07/16 23:59 Room Air 09/07/16 23:58 37.0 76 20 130/68 90 Room Air 09/07/16 20:00 Room Air 09/07/16 16:00 96 Room Air 09/07/16 16:00 Room Air 09/07/16 14:40 36.6 67 16 110/64 95 Nasal Cannula Physical Exam General Appearance: WD/WN, no apparent distress Respiratory/Chest: lungs clear, no respiratory distress Cardiovascular: no murmur, + pertinent finding (mild lower ext edema) Abdomen: normal bowel sounds, non tender, soft, no organomegaly Laboratory Results Last 24 Hours Test 09/08/16 06:55 White Blood Count 6.05 K/uL Red Blood Count 4.12 M/uL Hemoglobin 8.9 g/dL Hematocrit 29.9 % Mean Corpuscular Volume 72.6 fL Mean Corpuscular Hemoglobin 21.6 pg Mean Corpuscular Hemoglobin Concent 29.8 g/dl Platelet Count 236 K/uL Mean Platelet Volume 10.1 fL Neutrophils (%) (Auto) 66.8 % Lymphocytes (%) (Auto) 19.3 % Monocytes (%) (Auto) 8.3 % Eosinophils (%) (Auto) 4.6 % Basophils (%) (Auto) 0.8 % Neutrophils # (Auto) 4.04 K/uL Lymphocytes # (Auto) 1.17 K/uL Monocytes # (Auto) 0.50 K/uL Eosinophils # (Auto) 0.28 K/uL Basophils # (Auto) 0.05 K/uL RDW Standard Deviation 52.0 fL RDW Coefficient of Variation 19.6 % Immature Granulocyte % (Auto) 0.2 % Immature Granulocyte # (Auto) 0.01 K/uL Hypochromasia PRESENT Poikilocytosis PRESENT Microcytosis PRESENT Tear Drop Cells 1+ Sodium Level 137 mmol/L Potassium Level 3.6 mmol/L Chloride Level 100 mmol/L Carbon Dioxide Level 30 mmol/L Anion Gap 7.0 mmol/L Blood Urea Nitrogen 17 mg/dl Creatinine 1.10 mg/dl Est Creatinine Clear Calc Drug Dose 60.7 ml/min Estimated GFR () 77.3 Estimated GFR (Non- 66.7 BUN/Creatinine Ratio 15.7 Random Glucose 93 mg/dl Calcium Level 8.4 mg/dl Total Bilirubin 0.4 mg/dl Aspartate Amino Transf (AST/SGOT) 24 U/L Alanine Aminotransferase (ALT/SGPT) 24 U/L Alkaline Phosphatase 216 U/L Total Protein 6.0 gm/dl Albumin 3.0 gm/dl Globulin 3.0 gm/dl Albumin/Globulin Ratio 1.0 Assessment and Plan Heme positive stool--has history of limited rectal bleeding he attributes to hemorrhoids but not enough to explain anemia, no localizing clinical signs, could be PUD from ASA so cover with Protonix po bid--Seems to be stable from CHF standpoint so ordered NPO except meds post MN for EGD tomorrow (friday). Procedure and risks explained to patient which include but not limited to medication reaction, bleeding, perforation, aspiration. anemia likely from chronic GI blood loss-transfuse prn--stable elevated alk phos--could be from liver congestion from CHF--follow for now-- improved severe diverticulosis--needing pediatric scope at time of last colonoscopy 2008- -no abd pain at present to suggest diverticulitis. Others per hospitalist: CHF aortic stenosis I am going off service today at [address] Cummins assuming GI care then
--- NOTE | 2016-09-08 15:06 | Progress Note ---
Subjective Date of Service: Sep 08, 2016. Subjective Pt evaluation today including: conversation w/ patient, physical exam, chart review, lab review, review of inpatient medication list feeling good breathing good d/w GI - for EGD tomorrow no other current complaints Problem List Medical Problems: (1) Alkaline phosphatase elevation Status: Acute (2) Anemia Status: Acute (3) Chest pain Status: Acute Review of Systems Respiratory: No shortness of breath ros otherwise negative except for as above Objective Vital Signs Date Time Temp Pulse Resp B/P Pulse Ox O2 Delivery O2 Flow Rate FiO2 09/08/16 08:00 Room Air 09/08/16 07:44 36.2 62 18 119/68 91 Room Air 09/07/16 23:59 Room Air 09/07/16 23:58 37.0 76 20 130/68 90 Room Air 09/07/16 20:00 Room Air 09/07/16 16:00 96 Room Air 09/07/16 16:00 Room Air Physical Exam General Appearance: no apparent distress Eyes: EOMI ENT: hearing grossly normal Neck: trachea midline Respiratory/Chest: no respiratory distress, no accessory muscle use, + decreased breath sounds (base L to about 1/3 up, no r/r/w good effort) Cardiovascular: regular rate, rhythm Extremities: normal range of motion 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, alert, normal mood/affect Skin: normal color, warm/dry Laboratory Results Last 24 Hours Test 09/08/16 06:55 White Blood Count 6.05 K/uL Red Blood Count 4.12 M/uL Hemoglobin 8.9 g/dL Hematocrit 29.9 % Mean Corpuscular Volume 72.6 fL Mean Corpuscular Hemoglobin 21.6 pg Mean Corpuscular Hemoglobin Concent 29.8 g/dl Platelet Count 236 K/uL Mean Platelet Volume 10.1 fL Neutrophils (%) (Auto) 66.8 % Lymphocytes (%) (Auto) 19.3 % Monocytes (%) (Auto) 8.3 % Eosinophils (%) (Auto) 4.6 % Basophils (%) (Auto) 0.8 % Neutrophils # (Auto) 4.04 K/uL Lymphocytes # (Auto) 1.17 K/uL Monocytes # (Auto) 0.50 K/uL Eosinophils # (Auto) 0.28 K/uL Basophils # (Auto) 0.05 K/uL RDW Standard Deviation 52.0 fL RDW Coefficient of Variation 19.6 % Immature Granulocyte % (Auto) 0.2 % Immature Granulocyte # (Auto) 0.01 K/uL Hypochromasia PRESENT Poikilocytosis PRESENT Microcytosis PRESENT Tear Drop Cells 1+ Sodium Level 137 mmol/L Potassium Level 3.6 mmol/L Chloride Level 100 mmol/L Carbon Dioxide Level 30 mmol/L Anion Gap 7.0 mmol/L Blood Urea Nitrogen 17 mg/dl Creatinine 1.10 mg/dl Est Creatinine Clear Calc Drug Dose 60.7 ml/min Estimated GFR () 77.3 Estimated GFR (Non- 66.7 BUN/Creatinine Ratio 15.7 Random Glucose 93 mg/dl Calcium Level 8.4 mg/dl Total Bilirubin 0.4 mg/dl Aspartate Amino Transf (AST/SGOT) 24 U/L Alanine Aminotransferase (ALT/SGPT) 24 U/L Alkaline Phosphatase 216 U/L Total Protein 6.0 gm/dl Albumin 3.0 gm/dl Globulin 3.0 gm/dl Albumin/Globulin Ratio 1.0 Assessment and Plan acute hypoxic respiratory failure -due to pulmonary edema and pleural effusion from CHF, weaning O2, improving 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, 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 -due to sodium intake (at least w chicken broth, possibly with other foods as well) - ongoing education on low sodium -ongoing diuresis - improving -- follow BMP but off O2, sounding (other than effusion) clear - reduce lasix to 40mg PO daily pleural effusions L>R -likely won't need thoracentesis, but once clinically appears euvolemic or dry, if still showing hypoxia or dyspnea - will need to give consideration to this -will definitely at least need f/u CXR anemia due to (probably slow) GI bleeding -appreciate anticipated endoscopic w/u (EGD tomorrow) -Hgb dropped ~4g since march, no appearance of hemorrhage, shock, etc - suspect slow bleed -w drug eluting stents only ~5 months ago - risks/benefits would favor continuing dual antiplatelets unless true hemorrhage -continue to follow - even as outpt will need regular serial CBC for near future CAD -clinically stable - as above noted, risks of in stent thrombosis/STEMI certainly outweigh risks associated with what appears currently to be a "slow ooze' GI bleed iron deficiency -relates to above -very low - will initially replace IV in addition to PO (so far has had 3 IV doses, will order one for 09/09 AM as well) DVT proph -pharmacologic strong relative contraindication due to above noted GI bleed and need to be on dual antiplatelets -has SCDs - likely low risk since good skin integrity - will continue -encourage ambulation as possible hypokalemia -replaced vitamin D insufficiency -supplement w 2000 IU daily diminished eGFR by cockroft gault - -creatinines in overall normal to slightly high normal range -may represent stage 2 CKD vs "age adjusted normal" -- will definitely need to continue to follow on diuretics dispo - depending on EGD findings, possibly home w close outpt f/u after endoscopy tomorrow
[2016-09-08 15:57] VITALS: BP 124/65; PULSE 64; TEMP 36.4; O2SAT 96
[2016-09-08 16:00] VITALS: O2SAT 96
[2016-09-08] MEDS: BIMATOPROST 0.01% OP SOLN 2.5 ML BTL OP SCH (20:49)
[2016-09-08 20:54] VITALS: BP_SYST 119; BP_SYST 128; BP_DIAS 68; BP_DIAS 70; PULSE 59; PULSE 62; TEMP 36.3; TEMP 36.4; O2SAT 90; O2SAT 94
[2016-09-08 23:55] VITALS: BP 143/71; PULSE 67; TEMP 36.7; O2SAT 90
[2016-09-09 07:01] LABS: BUN/CREATININE RATIO 16.7 (10-20); CALCIUM 8.3 mg/dl (8.5-10.1); POTASSIUM 3.9 mmol/L (3.5-5.1)
[2016-09-09] MEDS ORDERED: IRON SUCROSE INJ 100 MG in SODIUM CHLORIDE 0.9% 100ML 100 ML IV SCH (07:30)
[2016-09-09 07:33] VITALS: BP 119/68; PULSE 59; TEMP 36.3; O2SAT 90
[2016-09-09] MEDS: ENALAPRIL MALEATE 10 MG TAB PO SCH (08:07)
[2016-09-09] MEDS: METOPROLOL SUCC 50MG EXT REL TAB PO SCH (08:07)
[2016-09-09] MEDS: PANTOprazole INJ 40 MG in SYRINGE 0 ML IV SCH ×2 (09:07→20:32)
[2016-09-09] MEDS ORDERED: KETAMINE HCL INJ 50 MG/ML 10 ML VIAL ONE (13:20)
[2016-09-09] MEDS ORDERED: PROPOFOL IV EMULSION 10 MG/ML 20 ML VIAL IV ONE (13:20)
[2016-09-09] MEDS ORDERED: MIDAZOLAM HCL 1 MG/ML 2ML VIAL ONE (13:21)
--- NOTE | 2016-09-09 13:30 | Endo History and Physical ---
History & Physical Date of Service: Sep 09, 2016. Chief Complaint: anemia Referring Physician: Dr Hero Marshall History of Present Illness For EGD Past Surgical History Hx Cardiac Surgery: Yes (stent placement mar 2016) Hx Abdominal Surgery: No Hx Post-Op Nausea and Vomiting: No Hx Cancer Surgery: No Hx Thoracic Surgery: No Hx Orthopedic: Yes (L knee surgery x 3) Hx Urinary Tract Surgery: No Social History Smoking Status: Former Smoker Smokeless Tobacco Use: No Hx Substance Use: No Hx Alcohol Use: Yes (occasional beer) Allergies Coded Allergies: No Known Allergies (Unverified , 09/09/16) Current Medications Reported Home Medications Medications Dose Route/Sig Max Daily Dose Days Date Category Lotensin (Benazepril HCl) 20 Mg Tab 20 Mg PO DAILY 30 04/19/16 Rx Toprol Xl (Metoprolol Succinate) 50 Mg Tab 1 Tab PO DAILY 30 04/19/16 Rx Lipitor (Atorvastatin Calcium) 40 Mg Tab 1 Tab PO DAILY 30 04/19/16 Reported Tylenol (Acetaminophen) 325 Mg Tab 325 Mg PO PRN 04/19/16 Reported Clopidogrel (Clopidogrel Bisulfate) 75 Mg Tab 75 Mg PO QAM 30 03/30/16 Rx Zoloft (Sertraline HCl) 50 Mg Tab 1.5 Tab PO DAILY 30 03/29/16 Reported Lumigan (Bimatoprost) 0.01 % Taniya 1 Drops OP HS 90 03/29/16 Reported Hydrochlorothiazide 12.5 Mg Tab 1 Tab PO DAILY 30 03/29/16 Reported Aspirin Ec (Aspirin) 81 Mg Tab 81 Mg PO DAILY 03/29/16 Reported Vital Signs Weight (Kilograms): 78.900 Height (Feet): 5 Height (Inches): 9.00 Date Time Temp Pulse Resp B/P Pulse Ox O2 Delivery O2 Flow Rate FiO2 09/09/16 13:20 36.8 70 20 134/83 94 Room Air 09/09/16 08:00 Room Air 09/09/16 07:33 36.3 59 20 119/68 90 09/08/16 23:59 Room Air 09/08/16 23:55 36.7 67 18 143/71 90 Room Air 09/08/16 20:54 36.3 59 20 119/68 90 Room Air 3.0 09/08/16 20:00 Room Air 09/08/16 16:00 96 Room Air 09/08/16 16:00 Room Air 09/08/16 15:57 36.4 64 17 124/65 96 Room Air Physical Exam General Appearance: WD/WN Respiratory/Chest: Respiratory effort: no dyspnea Cardiovascular: Heart Auscultation: RRR Abdomen: Inspection & Palpation: soft Assessment and Plan Anemia for EGD
--- NOTE | 2016-09-09 13:47 | Discharge Instructions ---
Endoscopy Patient Instructions Date / Procedure(s) Performed Sep 09, 2016. EGD Allergy Information Coded Allergies: No Known Allergies (Unverified , 09/09/16) Discharge Date / Findings Sep 09, 2016. Duodenal nodules-bx done Medication Instructions Restart Stopped Medication(s): resume meds Current Inpatient Medications Medications (Trade) Dose Ordered Sig/Kaitlynn Route Start Time Stop Time Status Last Admin Dose Admin Acetaminophen (Tylenol Tab) 650 mg Q4H PRN PO 09/04/16 14:15 10/04/16 14:14 09/06/16 00:47 650 MG Al Hydrox/Mg Hydrox/Simethicone (Maalox Max Susp) 15 ml Q4H PRN PO 09/04/16 14:15 10/04/16 14:14 Ondansetron HCl (Zofran Inj) 4 mg Q6H PRN IV 09/04/16 14:15 10/04/16 14:14 Nitroglycerin (Nitrostat Tab) 0.4 mg UD PRN SL 09/04/16 14:15 10/04/16 14:14 Aspirin (Ecotrin Tab) 81 mg DAILY PO 09/05/16 09:00 10/05/16 08:59 09/08/16 07:45 81 MG Atorvastatin Calcium (Lipitor Tab) 40 mg DAILY PO 09/05/16 09:00 10/05/16 08:59 09/08/16 07:45 40 MG Clopidogrel Bisulfate (plAVix TAB) 75 mg QAM PO 09/05/16 09:00 10/05/16 08:59 09/08/16 07:45 75 MG Metoprolol Succinate (Toprol Xl Tab) 50 mg DAILY PO 09/05/16 09:00 10/05/16 08:59 09/09/16 08:07 50 MG Sertraline HCl (Zoloft Tab) 75 mg DAILY PO 09/05/16 09:00 10/05/16 08:59 09/08/16 07:46 75 MG Enalapril Maleate (Vasotec Tab) 20 mg DAILY PO 09/05/16 09:00 10/05/16 08:59 09/09/16 08:07 20 MG Bimatoprost 1 drops 1 drops HS OP 09/04/16 21:00 10/04/16 20:59 09/08/16 20:49 1 DROPS Pantoprazole Sodium/Syringe (Protonix Inj/ Syringe) 10 ml @ 5 mls/min DAILY@,21 IV 09/05/16 09:00 10/05/16 08:59 09/09/16 09:07 5 MLS/MIN Polysaccharide Iron Complex (Niferex-150 w/ Vit C Cap) 150 mg BID PO 09/06/16 10:00 10/06/16 09:59 09/08/16 19:56 150 MG Cholecalciferol (Vitamin D Tab) 2,000 inter.unit QAM PO 09/07/16 08:00 10/07/16 07:59 09/08/16 07:46 2,000 INTER.UNIT Furosemide (Lasix Tab) 40 mg QAM PO 09/09/16 08:00 10/09/16 07:59 Provider Instructions Activity Restrictions - No exercising or heavy lifting for 24 hours. - Do not drink alcohol the day of the procedure. - Do not drive a car or operate machinery until the day after the procedure. - Do not make any important decisions or sign important papers in 24 hours after the procedure. Following Day: - Return to full activity which may include returning to work/school. Diet Start your diet with liquids and light foods (jello, soup, juice, toast). Then eat your usual diet if not nauseated. Treatment For Common After Affects For mild abdominal pain, bloating, or excessive gas: - Rest - Eat lightly - Lie on right side Follow-Up Information Follow-up with as scheduled Anesthesia Information What You Should Know You have had a procedure that required some medicine to reduce anxiety and discomfort. This treatment is called moderate sedation. After receiving the treatment, you may be sleepy, but you will be able to breathe on your own. The effects of the treatment may last for several hours. Follow these instructions along with Activity/Diet recommendations noted above: * Do NOT do anything where dizziness or clumsiness would be dangerous. * Rest quietly at home today, then you can be up and about tomorrow. * Have a responsible person stay with you the rest of today. * You may have had an I.V. today. If so, you may take the dressing off later today. Recommendations Call your doctor if: * Trouble breathing * Continuous vomiting for more than 24 hours * Temperature above 101 degrees * Severe abdominal pain or bloating * Pain not relieved by pain medicine ordered * There is increased drainage or redness from any incision * A large amount of rectal bleeding greater than 2-3 tablespoons. (If you had a polyp/s removed or have hemorrhoids, a small amount of blood - from the rectum is to be expected.) * You have any unanswered questions or concerns. IN THE EVENT OF A SERIOUS EMERGENCY, GO TO THE NEAREST EMERGENCY ROOM Your discharge instructions were prepared by provider Migel Cummins. Patient Instructions Signature Page Vasu Rizo Patient (or Guardian) Signature/Date: I have read and understand the instructions given to me by my caregivers. Caregiver/RN/Doctor Signature/Date: The above-named patient and/or guardian has received patient instructions on this date. + Original Patient Signature Page (only) stays with chart. Please make copy for patient.
--- NOTE | 2016-09-09 13:51 | GI REPORT ---
Procedure Date: 09/09/2016 1:35 PM Procedure: Upper GI endoscopy Indications: Iron deficiency anemia secondary to chronic blood loss Medicines: Midazolam 2 mg IV, Propofol total dose 80 mg IV, Ketamine 20 mg IV Complications: No immediate complications. Estimated Blood Loss: Estimated blood loss was minimal. Procedure: Pre-Anesthesia Assessment: - Prior to the procedure, a History and Physical was performed, and patient medications, allergies and sensitivities were reviewed. The patient's tolerance of previous anesthesia was reviewed. - The risks and benefits of the procedure and the sedation options and risks were discussed with the patient. All questions were answered and informed consent was obtained. After obtaining informed consent, the endoscope was passed under direct vision. Throughout the procedure, the patient's blood pressure, pulse, and oxygen saturations were monitored continuously. The scope was introduced through the mouth, and advanced to the second part of duodenum. The upper GI endoscopy was accomplished without difficulty. The patient tolerated the procedure well. Findings: The examined esophagus was normal. The entire examined stomach was normal. Many 6 mm submucosal nodules with a patchy distribution were found in the duodenal bulb. Biopsies were taken with a cold forceps for histology. Estimated blood loss was minimal. Impression: - Normal esophagus. - Normal stomach. - Submucosal nodule found in the duodenum. Biopsied. Recommendation: - Discharge patient to home (ambulatory). - Continue present medications. - Await pathology results. Migel Cummins M.D. Migel Cummins MD 09/09/2016 1:51:02 PM This report has been signed electronically. Note Initiated On: 09/09/2016 1:35 PM I attest to the content of the Intraoperative Record and orders documented therein, exceptions below
--- NOTE | 2016-09-09 14:42 | Anesthesiology Progress Note ---
Anesthesia Post Op Note Date & Time Sep 09, 2016 at 14:42 Vital Signs Pain Intensity: 0.0 Vital Signs Past 12 Hours Date Time Temp Pulse Resp B/P Pulse Ox O2 Delivery O2 Flow Rate FiO2 09/09/16 14:29 60 20 129/60 96 Nasal Cannula 3 09/09/16 14:10 62 20 128/62 96 Nasal Cannula 3 09/09/16 13:53 67 20 119/58 95 Nasal Cannula 6 09/09/16 13:20 36.8 70 20 134/83 94 Room Air 09/09/16 08:00 Room Air 09/09/16 07:33 36.3 59 20 119/68 90 Notes Mental Status: alert / awake / arousable, participated in evaluation Pt Amnestic to Procedure: Yes Nausea / Vomiting: adequately controlled Pain: adequately controlled Airway Patency, RR, SpO2: stable & adequate BP & HR: stable & adequate Hydration State: stable & adequate Anesthetic Complications: no major complications apparent
[2016-09-09 15:05] VITALS: BP 117/61; PULSE 61; TEMP 36.7; O2SAT 92
[2016-09-09 16:05] VITALS: O2SAT 92
[2016-09-09] MEDS: ASPIRIN 81 MG ECTAB PO SCH (16:09)
[2016-09-09] MEDS: SERTRALINE HCL 50 MG TAB PO SCH (16:10)
[2016-09-09] MEDS: ATORVASTATIN 40 MG TAB PO SCH (16:10)
[2016-09-09] MEDS: CLOPIDOGREL BISULFATE 75 MG TAB PO SCH (16:10)
[2016-09-09] MEDS: FUROSEMIDE 40 MG TAB PO SCH (16:11)
[2016-09-09] MEDS: IRON COMPLEX POLYSACCHARIDE W/VIT C 150 MG CAP PO SCH ×2 (16:11→20:32)
[2016-09-09] MEDS: CHOLECALCIFEROL 1000 INTER.UNIT TAB PO SCH (16:11)
--- NOTE | 2016-09-09 16:36 | Cardiology Follow-Up ---
Subjective Subjective Date of Service: Sep 09, 2016. Pt evaluation today including: conversation w/ patient, physical exam, chart review, lab review, review of studies, review of inpatient medication list Additional Details: Post EGD this AM. Feeling well this afternoon. No breathing difficulty. No chest pain. Problem List Medical Problems: (1) Alkaline phosphatase elevation Status: Acute (2) Anemia Status: Acute (3) Chest pain Status: Acute Review of Systems Constitutional: No fever Respiratory: No shortness of breath Cardiac: No chest pain Abdomen: No nausea, No pain Male : No dysuria Heme: No abnormal bleeding/bruising Endo: No fatigue Skin: No rash Objective Vital Signs Last Vital Signs Documentation Date Time Temp Pulse Resp B/P Pulse Ox O2 Delivery O2 Flow Rate FiO2 09/09/16 15:05 36.7 61 18 117/61 92 Room Air 09/09/16 14:29 3 Physical Exam: General Appearance: no apparent distress Eyes: bilateral eyes normal inspection ENT: hearing grossly normal Neck: trachea midline Respiratory/Chest: no respiratory distress, no accessory muscle use, + decreased breath sounds (base L to about 1/3 up, no r/r/w good effort) Cardiovascular: regular rate, rhythm, + systolic murmur (2/6 systolic ejection murmur) Abdomen: non tender, soft Extremities: no pedal edema, no calf tenderness Neurologic/Psychiatric: alert, normal mood/affect Skin: normal color, warm/dry Assessment and Plan 1. Acute systolic heart failure/Ischemic cardiomyopathy -- well perfused, minimal residual congestion. On PO diuretics. 2. CAD s/p PCI with DEZ to PDA/PAV, D1 5 months ago -- angina free. On DAPT 3. Anemia -- stable 4. Suspected chronic GI bleeding - s/p EGD; colonoscopy pending. Patient has diuresed well and now with minimal residual congestion Agree with transition to PO diuretics. Plan for d/c on standing loop diuretic, off prior HCTZ. Will need continued CHF teaching and will arrange for CHF clinic f/u next week. Continue Toprol xl, enalapril Continue DAPT with ASA/Plavix for at least a year. Continue high dose statin. Appreciate hospital medicine care. Medications: Current Inpatient Medications Medications (Trade) Dose Ordered Sig/Kaitlynn Route Start Time Stop Time Status Last Admin Dose Admin Acetaminophen (Tylenol Tab) 650 mg Q4H PRN PO 09/04/16 14:15 10/04/16 14:14 09/06/16 00:47 650 MG Al Hydrox/Mg Hydrox/Simethicone (Maalox Max Susp) 15 ml Q4H PRN PO 09/04/16 14:15 10/04/16 14:14 Ondansetron HCl (Zofran Inj) 4 mg Q6H PRN IV 09/04/16 14:15 10/04/16 14:14 Nitroglycerin (Nitrostat Tab) 0.4 mg UD PRN SL 09/04/16 14:15 10/04/16 14:14 Aspirin (Ecotrin Tab) 81 mg DAILY PO 09/05/16 09:00 10/05/16 08:59 09/09/16 16:09 81 MG Atorvastatin Calcium (Lipitor Tab) 40 mg DAILY PO 09/05/16 09:00 10/05/16 08:59 09/09/16 16:10 40 MG Clopidogrel Bisulfate (plAVix TAB) 75 mg QAM PO 09/05/16 09:00 10/05/16 08:59 09/09/16 16:10 75 MG Metoprolol Succinate (Toprol Xl Tab) 50 mg DAILY PO 09/05/16 09:00 10/05/16 08:59 09/09/16 08:07 50 MG Sertraline HCl (Zoloft Tab) 75 mg DAILY PO 09/05/16 09:00 10/05/16 08:59 09/09/16 16:10 75 MG Enalapril Maleate (Vasotec Tab) 20 mg DAILY PO 09/05/16 09:00 10/05/16 08:59 09/09/16 08:07 20 MG Bimatoprost 1 drops 1 drops HS OP 09/04/16 21:00 10/04/16 20:59 09/08/16 20:49 1 DROPS Pantoprazole Sodium/Syringe (Protonix Inj/ Syringe) 10 ml @ 5 mls/min DAILY@ IV 09/05/16 09:00 10/05/16 08:59 09/09/16 09:07 5 MLS/MIN Polysaccharide Iron Complex (Niferex-150 w/ Vit C Cap) 150 mg BID PO 09/06/16 10:00 10/06/16 09:59 09/09/16 16:11 150 MG Cholecalciferol (Vitamin D Tab) 2,000 inter.unit QAM PO 09/07/16 08:00 10/07/16 07:59 09/09/16 16:11 2,000 INTER.UNIT Furosemide (Lasix Tab) 40 mg QAM PO 09/09/16 08:00 10/09/16 07:59 09/09/16 16:11 40 MG Polyethylene Glycol/ Electrolytes (Golytely Soln) 8 dose BID@0700,1800 PO 09/09/16 18:00 09/10/16 07:01 Lab Results: 09/09/16 06:00 Test 09/09/16 06:00 Anion Gap 8.0 mmol/L (3-11) Est Creatinine Clear Calc Drug Dose 66.8 ml/min Estimated GFR () 86.8 Estimated GFR (Non- 74.9 BUN/Creatinine Ratio 16.7 (10-20) Calcium Level 8.3 mg/dl (8.5-10.1)
--- NOTE | 2016-09-09 18:52 | Progress Note ---
Subjective Date of Service: Sep 09, 2016. Subjective Pt evaluation today including: conversation w/ patient, physical exam, chart review, lab review Problem List Medical Problems: (1) Alkaline phosphatase elevation Status: Acute (2) Anemia Status: Acute (3) Chest pain Status: Acute Review of Systems Constitutional: No chills, No fatigue, No fever, No problem reported, No see HPI, No sweats, No weakness, No weight loss Eyes: No diplopia, No discharge, No eye pain, No problem reported, No redness, No see HPI, No worsening of vision ENT: No dental problems, No hearing loss, No nasal symptoms, No problem reported, No see HPI, No sore throat, No tinnitus, No trouble swallowing, No unusual epistaxis Respiratory: + dyspnea on exertion, + shortness of breath, No dyspnea at rest, No hemoptysis Cardiac: No PND, No chest pain, No claudication, No edema, No orthopnea, No palpitations, No problem reported, No see HPI Abdomen: No GI bleeding, No constipation, No diarrhea, No nausea, No pain, No problem reported, No see HPI, No vomiting Musculoskeletal: No calf pain, No joint pain, No muscle pain, No problem reported, No see HPI, No swelling Psychiatric: No anhedonism, No anxiety, No depression symptoms, No insomnia, No problem reported, No see HPI, No substance abuse Endo: No excessive thirst, No excessive urination, No fatigue, No problem reported, No see HPI Skin: No bleeding, No color change, No itch, No new/changing skin lesions, No problem reported, No rash, No see HPI Medications Current Inpatient Medications Medications (Trade) Dose Ordered Sig/Kaitlynn Route Start Time Stop Time Status Last Admin Dose Admin Acetaminophen (Tylenol Tab) 650 mg Q4H PRN PO 09/04/16 14:15 10/04/16 14:14 09/06/16 00:47 650 MG Al Hydrox/Mg Hydrox/Simethicone (Maalox Max Susp) 15 ml Q4H PRN PO 09/04/16 14:15 10/04/16 14:14 Ondansetron HCl (Zofran Inj) 4 mg Q6H PRN IV 09/04/16 14:15 10/04/16 14:14 Nitroglycerin (Nitrostat Tab) 0.4 mg UD PRN SL 09/04/16 14:15 10/04/16 14:14 Aspirin (Ecotrin Tab) 81 mg DAILY PO 09/05/16 09:00 10/05/16 08:59 09/09/16 16:09 81 MG Atorvastatin Calcium (Lipitor Tab) 40 mg DAILY PO 09/05/16 09:00 10/05/16 08:59 09/09/16 16:10 40 MG Clopidogrel Bisulfate (plAVix TAB) 75 mg QAM PO 09/05/16 09:00 10/05/16 08:59 09/09/16 16:10 75 MG Metoprolol Succinate (Toprol Xl Tab) 50 mg DAILY PO 09/05/16 09:00 10/05/16 08:59 09/09/16 08:07 50 MG Sertraline HCl (Zoloft Tab) 75 mg DAILY PO 09/05/16 09:00 10/05/16 08:59 09/09/16 16:10 75 MG Enalapril Maleate (Vasotec Tab) 20 mg DAILY PO 09/05/16 09:00 10/05/16 08:59 09/09/16 08:07 20 MG Bimatoprost 1 drops 1 drops HS OP 09/04/16 21:00 10/04/16 20:59 09/08/16 20:49 1 DROPS Pantoprazole Sodium/Syringe (Protonix Inj/ Syringe) 10 ml @ 5 mls/min DAILY@09,21 IV 09/05/16 09:00 10/05/16 08:59 09/09/16 09:07 5 MLS/MIN Polysaccharide Iron Complex (Niferex-150 w/ Vit C Cap) 150 mg BID PO 09/06/16 10:00 10/06/16 09:59 09/09/16 16:11 150 MG Cholecalciferol (Vitamin D Tab) 2,000 inter.unit QAM PO 09/07/16 08:00 10/07/16 07:59 09/09/16 16:11 2,000 INTER.UNIT Furosemide (Lasix Tab) 40 mg QAM PO 09/09/16 08:00 10/09/16 07:59 09/09/16 16:11 40 MG Polyethylene Glycol/ Electrolytes (Golytely Soln) 8 dose BID@0700,1800 PO 09/09/16 18:00 09/10/16 07:01 Objective Vital Signs Date Time Temp Pulse Resp B/P Pulse Ox O2 Delivery O2 Flow Rate FiO2 09/09/16 16:05 92 Room Air 09/09/16 15:05 36.7 61 18 117/61 92 Room Air 09/09/16 14:29 60 20 129/60 96 Nasal Cannula 3 09/09/16 14:10 62 20 128/62 96 Nasal Cannula 3 09/09/16 13:53 67 20 119/58 95 Nasal Cannula 6 09/09/16 13:20 36.8 70 20 134/83 94 Room Air 09/09/16 08:00 Room Air 09/09/16 07:33 36.3 59 20 119/68 90 09/08/16 23:59 Room Air 09/08/16 23:55 36.7 67 18 143/71 90 Room Air 09/08/16 20:54 36.3 59 20 119/68 90 Room Air 3.0 09/08/16 20:00 Room Air Physical Exam General Appearance: no apparent distress Eyes: normal inspection, EOMI ENT: normal ENT inspection, pharynx normal Neck: supple Respiratory/Chest: + decreased breath sounds, + rales Cardiovascular: regular rate, rhythm, no edema, no murmur, + gallop/S3 Abdomen: normal bowel sounds, non tender, soft Extremities: + swelling Neurologic/Psychiatric: rn bsn II-XII nml as tested, no motor/sensory deficits, alert, normal mood/affect, oriented x 3, + aphasia (minimal aphasia, appears to be at base line) Laboratory Results Last 24 Hours Test 09/09/16 06:00 Sodium Level 139 mmol/L Potassium Level 3.9 mmol/L Chloride Level 101 mmol/L Carbon Dioxide Level 30 mmol/L Anion Gap 8.0 mmol/L Blood Urea Nitrogen 17 mg/dl Creatinine 1.00 mg/dl Est Creatinine Clear Calc Drug Dose 66.8 ml/min Estimated GFR () 86.8 Estimated GFR (Non- 74.9 BUN/Creatinine Ratio 16.7 Random Glucose 87 mg/dl Calcium Level 8.3 mg/dl Assessment and Plan acute hypoxic respiratory failure/GARBER multifactorial seconadry to below / improved 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, 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 -due to sodium intake (at least w chicken broth, possibly with other foods as well) - ongoing education on low sodium -S/P lasix 40mg IV BID - reduce lasix to 40mg PO daily -improving pleural effusions L>R -likely won't need thoracentesis,normal O2 sat on room air -prior to discharge f/u CXR anemia due to (probably slow) GI bleeding / iron deficiency -Hgb dropped ~4g since march, no appearance of hemorrhage, shock, etc - suspect slow bleed -w drug eluting stents only ~5 months ago - risks/benefits would favor continuing dual antiplatelets unless true hemorrhage -S/P EGD; Normal esophagus and stomach / Submucosal nodule found in the duodenum. Biopsied - going for colonoscopy in am -very low - continue replace IV in addition to PO (so far has had 3 IV doses, will order one for 09/09 AM as well) CAD -clinically stable - as above noted, risks of in stent thrombosis/STEMI certainly outweigh risks associated with what appears currently to be a "slow ooze' GI bleed DVT proph -pharmacologic strong relative contraindication due to above noted GI bleed and need to be on dual antiplatelets -has SCDs - likely low risk since good skin integrity - will continue -encourage ambulation as possible hypokalemia -replaced vitamin D insufficiency -supplement w 2000 IU daily diminished eGFR by cockroft gault - -creatinines in overall normal to slightly high normal range -may represent stage 2 CKD vs "age adjusted normal" -- will definitely need to continue to follow on diuretics dispo - possible home tomorrow after colonoscopy will order Pt/OT to evaluate his level of function
[2016-09-09] MEDS: LAVAGE SOLUTION 4000ML PO SCH (19:01)
[2016-09-09] MEDS: BIMATOPROST 0.01% OP SOLN 2.5 ML BTL OP SCH (20:33)
[2016-09-09 23:28] VITALS: BP 113/70; PULSE 62; TEMP 36.4; O2SAT 94
[2016-09-10] MEDS: METOPROLOL SUCC 50MG EXT REL TAB PO SCH (07:44)
[2016-09-10] MEDS: LAVAGE SOLUTION 4000ML PO SCH (07:44)
[2016-09-10] MEDS: ENALAPRIL MALEATE 10 MG TAB PO SCH (07:44)
[2016-09-10 07:51] VITALS: BP 128/70; PULSE 62; TEMP 36.4; O2SAT 94
[2016-09-10] MEDS: PANTOprazole INJ 40 MG in SYRINGE 0 ML IV SCH ×2 (09:16→21:53)
[2016-09-10 10:13] VITALS: O2SAT 94
[2016-09-10 11:12] VITALS: BP 137/64; PULSE 62; O2SAT 96
--- NOTE | 2016-09-10 13:45 | History & Physical Bridge Note ---
H&P Re-Evaluation Bridge Note: I have examined the patient, reviewed the History & Physical and in the interval since the performance of the History & Physical I have noted the following changes of clinical significance: No changes noted
[2016-09-10] MEDS ORDERED: LIDOCAINE HCL 2% 2 ML VIAL (20MG/ML) ONE (13:57)
[2016-09-10] MEDS ORDERED: PROPOFOL IV EMULSION 10 MG/ML 20 ML VIAL IV ONE (13:57)
--- NOTE | 2016-09-10 14:38 | GI REPORT ---
Procedure Date: 09/10/2016 1:50 PM Procedure: Colonoscopy Indications: Heme positive stool, Melena, Gastrointestinal bleeding Medicines: Propofol per Anesthesia Complications: No immediate complications. Estimated blood loss: Minimal. Estimated Blood Loss: Estimated blood loss was minimal. Procedure: Pre-Anesthesia Assessment: - Prior to the procedure, a History and Physical was performed, and patient medications and allergies were reviewed. The patient's tolerance of previous anesthesia was also reviewed. The risks and benefits of the procedure and the sedation options and risks were discussed with the patient. All questions were answered, and informed consent was obtained. Prior Anticoagulants: The patient has taken no previous anticoagulant or antiplatelet agents. ASA Grade Assessment: III - A patient with severe systemic disease. After reviewing the risks and benefits, the patient was deemed in satisfactory condition to undergo the procedure. After I obtained informed consent, the scope was passed under direct vision. Throughout the procedure, the patient's blood pressure, pulse, and oxygen saturations were monitored continuously. The Scope was introduced through the anus and advanced to the terminal ileum, with identification of the appendiceal orifice and IC valve. The colonoscopy was performed without difficulty. The patient tolerated the procedure well. The quality of the bowel preparation was good. Findings: The perianal and digital rectal examinations were normal. Pertinent negatives include normal sphincter tone, no palpable rectal lesions and no anal lesion or abnormality was detected. A 3 mm polyp was found in the proximal ascending colon. The polyp was sessile. The polyp was removed with a cold biopsy forceps. Resection and retrieval were complete. Estimated blood loss was minimal. Verification of patient identification for the specimen was done by the physician and mail technician using the patient's name and medical record number. The polyp was removed with a cold biopsy forceps. Resection and retrieval were complete. Estimated blood loss was minimal. Verification of patient identification for the specimen was done by the physician and mail technician using the patient's name and medical record number. A 7 mm polyp was found in the transverse colon. The polyp was sessile. The polyp was removed with a cold snare. Resection and retrieval were complete. Estimated blood loss was minimal. Verification of patient identification for the specimen was done by the physician and mail technician using the patient's name and medical record number. A 7 mm polyp was found at 30 cm proximal to the anus. The polyp was sessile. The polyp was removed with a hot snare. Resection and retrieval were complete. Estimated blood loss: none. Verification of patient identification for the specimen was done by the physician and mail technician using the patient's name and medical record number. A 4 mm polyp was found at 20 cm proximal to the anus. The polyp was sessile. The exam was otherwise without abnormality. The terminal ileum appeared normal. The retroflexed view of the distal rectum and anal verge was normal and showed no anal or rectal abnormalities. Impression: - One 3 mm polyp in the proximal ascending colon, removed with a cold biopsy forceps. Resected and retrieved. - One 7 mm polyp in the transverse colon, removed with a cold snare. Resected and retrieved. - One 7 mm polyp at 30 cm proximal to the anus, removed with a hot snare. Resected and retrieved. - One 4 mm polyp at 20 cm proximal to the anus. - The examination was otherwise normal. - The examined portion of the ileum was normal. Recommendation: - Return patient to [facility] for ongoing care. - Advance diet as tolerated. - Await pathology results. - Repeat colonoscopy for surveillance based on pathology results. MD Ray Woodson MD 09/10/2016 2:38:07 PM This report has been signed electronically. Note Initiated On: 09/10/2016 1:50 PM I attest to the content of the Intraoperative Record and orders documented therein, exceptions below
--- NOTE | 2016-09-10 14:39 | Anesthesiology Progress Note ---
Anesthesia Post Op Note Date & Time Sep 10, 2016 at 14:39 Vital Signs Pain Intensity: 0 Vital Signs Past 12 Hours Date Time Temp Pulse Resp B/P Pulse Ox O2 Delivery O2 Flow Rate FiO2 09/10/16 14:36 66 18 114/55 93 Room Air 09/10/16 14:28 68 18 109/55 95 Room Air 09/10/16 13:16 36.4 65 18 138/68 92 Room Air 09/10/16 10:13 94 Room Air 09/10/16 08:00 Room Air 09/10/16 07:51 36.4 62 18 128/70 94 Room Air Notes Mental Status: alert / awake / arousable, participated in evaluation Pt Amnestic to Procedure: Yes Nausea / Vomiting: adequately controlled Pain: adequately controlled Airway Patency, RR, SpO2: stable & adequate BP & HR: stable & adequate Hydration State: stable & adequate Anesthetic Complications: no major complications apparent
[2016-09-10 15:27] VITALS: BP 152/73; PULSE 70; TEMP 36.8; O2SAT 92
[2016-09-10 16:05] VITALS: O2SAT 92
[2016-09-10] MEDS: ASPIRIN 81 MG ECTAB PO SCH (18:21)
[2016-09-10] MEDS: CLOPIDOGREL BISULFATE 75 MG TAB PO SCH (18:21)
[2016-09-10] MEDS: FUROSEMIDE 40 MG TAB PO SCH (18:21)
[2016-09-10] MEDS: IRON COMPLEX POLYSACCHARIDE W/VIT C 150 MG CAP PO SCH ×2 (18:22→21:53)
[2016-09-10] MEDS: CHOLECALCIFEROL 1000 INTER.UNIT TAB PO SCH (18:22)
[2016-09-10] MEDS: SERTRALINE HCL 50 MG TAB PO SCH (18:22)
[2016-09-10] MEDS: ATORVASTATIN 40 MG TAB PO SCH (18:23)
--- NOTE | 2016-09-10 19:41 | Progress Note ---
Subjective Date of Service: Sep 10, 2016. Subjective Pt evaluation today including: conversation w/ patient, physical exam, chart review, lab review Voiding: no voiding problems Problem List Medical Problems: (1) Alkaline phosphatase elevation Status: Acute (2) Anemia Status: Acute (3) Chest pain Status: Acute Review of Systems Constitutional: No chills, No fatigue, No fever, No problem reported, No see HPI, No sweats, No weakness, No weight loss Eyes: No diplopia, No discharge, No eye pain, No problem reported, No redness, No see HPI, No worsening of vision ENT: No dental problems, No hearing loss, No nasal symptoms, No problem reported, No see HPI, No sore throat, No tinnitus, No trouble swallowing, No unusual epistaxis Respiratory: No cough, No dyspnea at rest, No dyspnea on exertion, No hemoptysis, No problem reported, No see HPI, No shortness of breath, No sputum, No wheezing Cardiac: No PND, No chest pain, No claudication, No edema, No orthopnea, No palpitations, No problem reported, No see HPI Abdomen: No GI bleeding, No constipation, No diarrhea, No nausea, No pain, No problem reported, No see HPI, No vomiting Musculoskeletal: No calf pain, No joint pain, No muscle pain, No problem reported, No see HPI, No swelling Male : No dysuria, No hematuria, No incontinence, No nocturia more than once/ night, No problem reported, No see HPI, No sexual dysfunction, No slowing stream , No urinary frequency Neurologic: No balance problems, No memory loss, No numbness/tingling, No paralysis, No problem reported, No see HPI, No vertigo, No weakness Psychiatric: No anhedonism, No anxiety, No depression symptoms, No insomnia, No problem reported, No see HPI, No substance abuse Heme: No abnormal bleeding/bruising, No clotting problems, No night sweats, No problem reported, No see HPI, No swollen lymph nodes Endo: No excessive thirst, No excessive urination, No fatigue, No problem reported, No see HPI Skin: No bleeding, No color change, No itch, No new/changing skin lesions, No problem reported, No rash, No see HPI Medications Current Inpatient Medications Medications (Trade) Dose Ordered Sig/Kaitlynn Route Start Time Stop Time Status Last Admin Dose Admin Acetaminophen (Tylenol Tab) 650 mg Q4H PRN PO 09/04/16 14:15 10/04/16 14:14 09/06/16 00:47 650 MG Al Hydrox/Mg Hydrox/Simethicone (Maalox Max Susp) 15 ml Q4H PRN PO 09/04/16 14:15 10/04/16 14:14 Ondansetron HCl (Zofran Inj) 4 mg Q6H PRN IV 09/04/16 14:15 10/04/16 14:14 Nitroglycerin (Nitrostat Tab) 0.4 mg UD PRN SL 09/04/16 14:15 10/04/16 14:14 Aspirin (Ecotrin Tab) 81 mg DAILY PO 09/05/16 09:00 10/05/16 08:59 09/10/16 18:21 81 MG Atorvastatin Calcium (Lipitor Tab) 40 mg DAILY PO 09/05/16 09:00 10/05/16 08:59 09/10/16 18:23 40 MG Clopidogrel Bisulfate (plAVix TAB) 75 mg QAM PO 09/05/16 09:00 10/05/16 08:59 09/10/16 18:21 75 MG Metoprolol Succinate (Toprol Xl Tab) 50 mg DAILY PO 09/05/16 09:00 10/05/16 08:59 09/10/16 07:44 50 MG Sertraline HCl (Zoloft Tab) 75 mg DAILY PO 09/05/16 09:00 10/05/16 08:59 09/10/16 18:22 75 MG Enalapril Maleate (Vasotec Tab) 20 mg DAILY PO 09/05/16 09:00 10/05/16 08:59 09/10/16 07:44 20 MG Bimatoprost 1 drops 1 drops HS OP 09/04/16 21:00 10/04/16 20:59 09/09/16 20:33 1 DROPS Pantoprazole Sodium/Syringe (Protonix Inj/ Syringe) 10 ml @ 5 mls/min DAILY@ IV 09/05/16 09:00 10/05/16 08:59 09/10/16 09:16 5 MLS/MIN Polysaccharide Iron Complex (Niferex-150 w/ Vit C Cap) 150 mg BID PO 09/06/16 10:00 10/06/16 09:59 09/10/16 18:22 150 MG Cholecalciferol (Vitamin D Tab) 2,000 inter.unit QAM PO 09/07/16 08:00 10/07/16 07:59 09/10/16 18:22 2,000 INTER.UNIT Furosemide (Lasix Tab) 40 mg QAM PO 09/09/16 08:00 10/09/16 07:59 09/10/16 18:21 40 MG Objective Vital Signs Date Time Temp Pulse Resp B/P Pulse Ox O2 Delivery O2 Flow Rate FiO2 09/10/16 16:05 92 Room Air 09/10/16 15:27 36.8 70 20 152/73 92 Room Air 09/10/16 14:51 67 18 117/56 93 Room Air 09/10/16 14:36 66 18 114/55 93 Room Air 09/10/16 14:28 68 18 109/55 95 Room Air 09/10/16 13:16 36.4 65 18 138/68 92 Room Air 09/10/16 11:12 62 96 09/10/16 10:13 94 Room Air 09/10/16 08:00 Room Air 09/10/16 07:51 36.4 62 18 128/70 94 Room Air 09/10/16 00:00 Room Air 09/09/16 23:28 36.4 62 20 113/70 94 Room Air Physical Exam General Appearance: WD/WN, no apparent distress Eyes: normal inspection, EOMI ENT: normal ENT inspection, hearing grossly normal Neck: supple Respiratory/Chest: chest non-tender, lungs clear, normal breath sounds, no respiratory distress, no accessory muscle use Cardiovascular: regular rate, rhythm, no edema, no gallop, no JVD, no murmur Abdomen: normal bowel sounds, non tender, soft, no organomegaly, no pulsatile mass Extremities: normal range of motion, non-tender, normal inspection, no pedal edema, no calf tenderness Neurologic/Psychiatric: 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, no motor/sensory deficits, alert, normal mood/affect, oriented x 3 Skin: normal color, warm/dry, no rash Assessment and Plan acute hypoxic respiratory failure/GARBER multifactorial seconadry to below / improved 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, 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 -due to sodium intake (at least w chicken broth, possibly with other foods as well) - ongoing education on low sodium -S/P lasix 40mg IV BID - reduce lasix to 40mg PO daily -improving pleural effusions L>R -likely won't need thoracentesis,normal O2 sat on room air -prior to discharge f/u CXR anemia due to (probably slow) GI bleeding / iron deficiency -Hgb dropped ~4g since march, no appearance of hemorrhage, shock, etc - suspect slow bleed -w drug eluting stents only ~5 months ago - risks/benefits would favor continuing dual antiplatelets unless true hemorrhage -S/P EGD; Normal esophagus and stomach / Submucosal nodule found in the duodenum. Biopsied - S/P colonoscopy, found and removed multiple polyps -very low - continue replace IV in addition to PO (so far has had 3 IV doses, will order one for 09/09 AM as well) CAD -clinically stable - as above noted, risks of in stent thrombosis/STEMI certainly outweigh risks associated with what appears currently to be a "slow ooze' GI bleed DVT proph -pharmacologic strong relative contraindication due to above noted GI bleed and need to be on dual antiplatelets -has SCDs - likely low risk since good skin integrity - will continue -encourage ambulation as possible hypokalemia -replaced vitamin D insufficiency -supplement w 2000 IU daily diminished eGFR by cockroft gault - -creatinines in overall normal to slightly high normal range -may represent stage 2 CKD vs "age adjusted normal" -- will definitely need to continue to follow on diuretics dispo - possible home tomorrow, had some lower GI bleed after the colonoscopy, will monitor till tomorrow will order Pt/OT to evaluate his level of function
[2016-09-10] MEDS: BIMATOPROST 0.01% OP SOLN 2.5 ML BTL OP SCH (21:53)
[2016-09-11 00:35] VITALS: BP 125/67; PULSE 72; TEMP 36.5; O2SAT 92
[2016-09-11 07:31] VITALS: BP 149/76; PULSE 62; TEMP 36.4; O2SAT 96
[2016-09-11 08:00] VITALS: O2SAT 96
[2016-09-11] MEDS: SERTRALINE HCL 50 MG TAB PO SCH (08:16)
[2016-09-11] MEDS: METOPROLOL SUCC 50MG EXT REL TAB PO SCH (08:17)
[2016-09-11] MEDS: ATORVASTATIN 40 MG TAB PO SCH (08:17)
[2016-09-11] MEDS: CLOPIDOGREL BISULFATE 75 MG TAB PO SCH (08:17)
[2016-09-11] MEDS: IRON COMPLEX POLYSACCHARIDE W/VIT C 150 MG CAP PO SCH (08:17)
[2016-09-11] MEDS: FUROSEMIDE 40 MG TAB PO SCH (08:18)
[2016-09-11] MEDS: ASPIRIN 81 MG ECTAB PO SCH (08:18)
[2016-09-11] MEDS: CHOLECALCIFEROL 1000 INTER.UNIT TAB PO SCH (08:19)
[2016-09-11] MEDS: ENALAPRIL MALEATE 10 MG TAB PO SCH (08:19)
[2016-09-11] MEDS: PANTOprazole INJ 40 MG in SYRINGE 0 ML IV SCH (08:19)
[2016-09-11 10:52] LABS: BASO % 0.3 %; BASO ABS # 0.02 K/uL (0-0.2); EOS % 3.6 %; HEMATOCRIT 32.4 % (42-52); LYMPH % 14.8 %; LYMPH ABS # 0.94 K/uL (1.2-3.4); MEAN CELL VOLUME 74.8 fL (80-100); MEAN CORPUSCULAR HEMOGLOBIN 22.2 pg (25-34); MEAN CORPUSCULAR HGB CONC 29.6 g/dl (32-36); MEAN PLATELET VOLUME 9.7 fL (7.4-10.4); MONO % 8.4 %; NEUT % 72.9 %; PLATELET COUNT 229 K/uL (130-400); RED BLOOD COUNT 4.33 M/uL (4.7-6.1); WHITE BLOOD COUNT 6.33 K/uL (4.8-10.8)
[2016-09-11 11:17] LABS: BUN/CREATININE RATIO 9.5 (10-20); CALCIUM 8.8 mg/dl (8.5-10.1); CREATININE 1.1 mg/dl (0.60-1.40); MAGNESIUM 2.3 mg/dl (1.8-2.4); POTASSIUM 3.7 mmol/L (3.5-5.1)
[2016-09-11 11:21] LABS: ANISOCYTOSIS PRESENT; COMPLETE YES; OVALOCYTES 1+; POIKILOCYTOSIS PRESENT
[2016-09-11 11:28] LABS: ALB/GLOB RATIO 0.9 (0.9-2)
[2016-09-11] MEDS ORDERED: LSX40 PO (13:32)
[2016-09-11] MEDS ORDERED: VTMD1000 PO (13:32)
[2016-09-11 13:46] VITALS: BP 149/76; PULSE 62; TEMP 36.4; O2SAT 96
[2016-09-11] MEDS ORDERED: SENN-65 PO (13:46)
[2016-09-11] MEDS ORDERED: PANT40TA PO (13:46)
[2016-09-11] MEDS ORDERED: MULTTAB58 PO (13:46)
[2016-09-11] MEDS ORDERED: MRLP17 OR (13:46)
[2016-09-11] MEDS ORDERED: FERR1TAB13 PO (13:46)
--- NOTE | 2016-09-11 14:29 | Discharge Summary ---
Discharge Summary Admission Date: Sep 04, 2016 at 14:19 Discharge Date: Sep 11, 2016 Discharge Disposition: Home Problems/Secondary Diagnoses: Acute hypoxic respiratory failure/GARBER multifactorial secondary to below 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, 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 anemia due to (probably slow) GI bleeding / iron deficiency positive troponin in the sitting of CAD, was likely demand ischemia vitamin D insufficiency Large B/L pleural effusion Medication Reconciliation New Medications: Ferrous Sulfate (Kp Ferrous Sulfate) 325 Mg Tab 1 TAB PO BID for 30 Days, #60 TAB 3 Refills Multiple Vitamin (Multivitamin) 1 Tab Tab 1 TAB PO DAILY for 90 Days, #90 TAB 3 Refills Pantoprazole Sodium (Protonix) 40 Mg Tab 1 TAB PO DAILY for 30 Days, #30 TAB 5 Refills Polyethylene (Miralax) 17 Gm Pow 1 TBS OR DAILY for 30 Days large spoon mixed with large cup of water every day Senna/Docusate Sod (Senokot S) 1 Tab Tab 1 TAB PO DAILY for 30 Days, #30 TAB Cholecalciferol (Vitamin D3) 1,000 Inter.unit Tab 2000 INTER.UNIT PO QAM for 30 Days, #30 TAB Furosemide (Furosemide) 40 Mg Tab 40 MG PO QAM for 30 Days, #30 TAB Continued Medications: Acetaminophen (Tylenol) 325 Mg Tab 325 MG PO prn, TAB Aspirin (Aspirin Ec) 81 Mg Tab 81 MG PO DAILY Atorvastatin (Lipitor) 40 Mg Tab 1 TAB PO DAILY for 30 Days, #30 TAB 5 Refills Benazepril (Lotensin) 20 Mg Tab 20 MG PO DAILY for 30 Days, #30 TAB 6 Refills Bimatoprost (Lumigan) 0.01 % Taniya 1 DROPS OP HS for 90 Days, #7.5 ML 3 Refills Clopidogrel Bisulfate (Clopidogrel) 75 Mg Tab 75 MG PO QAM for 30 Days, #30 TAB 9 Refills Metoprolol Succinate (Toprol Xl) 50 Mg Tab 1 TAB PO DAILY for 30 Days, #30 TAB 5 Refills Sertraline (Zoloft) 50 Mg Tab 1.5 TAB PO DAILY for 30 Days, #45 TAB 2 Refills Discontinued Medications: Hydrochlorothiazide (Hydrochlorothiazide) 12.5 Mg Tab 1 TAB PO DAILY for 30 Days, #30 TAB 5 Refills Referrals At Discharge Follow up Referrals: Learning Disabilities Teacher Referral - Within 6 Weeks with Willem Mata MD Inspector Tool Referral - Within 6 Weeks with Ayden Ho M.D. Discharge Exam Review of Systems: Constitutional: No chills, No fatigue, No fever, No problem reported, No sweats, No weakness, No weight loss Eyes: No diplopia, No discharge, No eye pain, No problem reported, No redness, No worsening of vision ENT: No dental problems, No hearing loss, No nasal symptoms, No problem reported, No sore throat, No tinnitus, No trouble swallowing, No unusual epistaxis Respiratory: No cough, No dyspnea at rest, No dyspnea on exertion, No hemoptysis, No problem reported, No shortness of breath, No sputum, No wheezing Cardiovascular: No PND, No chest pain, No claudication, No edema, No orthopnea, No palpitations, No problem reported Abdomen: No GI bleeding, No constipation, No diarrhea, No nausea, No pain, No problem reported, No vomiting Musculoskeletal: No calf pain, No joint pain, No muscle pain, No problem reported, No swelling Genitourinary - Male: No dysuria, No hematuria, No impotence, No lesions, No penile discharge, No problem reported, No urinary frequency, No urinary hesitancy, No urinary incontinence, No urinary retention, No urinary urgency Neurologic: No balance problems, No memory loss, No numbness/tingling, No paralysis, No problem reported, No vertigo, No weakness Psychiatric: No anhedonism, No anxiety, No depression symptoms, No insomnia , No problem reported, No substance abuse Endocrine: No excessive thirst, No excessive urination, No fatigue, No problem reported Hematologic / Lymphatic: No abnormal bleeding/bruising, No clotting problems , No night sweats, No problem reported, No swollen lymph nodes Physical Exam: General Appearance: WD/WN, no apparent distress Eyes: normal inspection, EOMI ENT: normal ENT inspection, hearing grossly normal, TMs normal Neck: supple, thyroid normal Respiratory/Chest: chest non-tender, lungs clear, normal breath sounds, no respiratory distress, no accessory muscle use Cardiovascular: regular rate, rhythm, no edema, no gallop, no JVD, no murmur , normal peripheral pulses Abdomen / GI: normal bowel sounds, non tender, soft, no organomegaly, no pulsatile mass, normal rectal exam Extremities: normal inspection, no calf tenderness, normal capillary refill , no pedal edema 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 The patient had an outpatient appointment with Dr. Marshall this morning and was sent here for shortness of breath. he was found to have the following; Acute hypoxic respiratory failure/GARBER multifactorial secondary to 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, 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 Likely secondary to excessive sodium intake (chicken broth and other foods) -S/P lasix 40mg IV BID - also cardiology consult was obtained and 2D echo ( results attached below) his SOB improved and we reduced lasix to 40mg PO daily (HCTZ was discontinued to allow room for lasix) also found to have large pleural effusions L>R thankfully did not need thoracentesis,normal O2 sat on room air needs a follow up CXR with his PCP in 2-4 weeks anemia due to (probably slow) GI bleeding / iron deficiency -Hgb dropped ~4g since March, no appearance of hemorrhage, shock, etc - suspect slow bleed -w drug eluting stents only ~5 months ago - risks/benefits would favor continuing dual antiplatelets unless true hemorrhage -S/P EGD; Normal esophagus and stomach / Submucosal nodule found in the duodenum. Biopsied - S/P colonoscopy, found and removed multiple polyps discharged on iron supplement and stool softner, cleared to start ASA/plavix positive troponin in the sitting of CAD, was likely demand ischemia -clinically stable - as above noted, risks of in stent thrombosis/STEMI certainly outweigh risks associated with what appears currently to be a "slow ooze' GI bleed vitamin D insufficiency -supplement w 2000 IU daily Discussed low sodium diet, medication compliance with his daughter today he is stable for discharge and follow up with his PCP 2D echo was obtained; * -- Conclusions -- * 1. Moderately dilated LV with mild concentric LVH. * 2. Mild LV dysfunction. LVEF 45%. Mild inferior hypokinesis, severe posterior hypokinesis. * 3. Grade II diastolic dysfunction. * 4. Normal RV size and function. * 5. Mild to moderate . Mild AI. * 6. Mild to moderate MR. * 7. No prior studies for comparison. This includes examination of the patient, discharge planning, medication reconciliation, and communication with other providers. Discharge Instructions Please refer to the electronic Patient Visit Report (Discharge Instructions) for additional information.
--- NOTE | 2016-09-11 15:32 | GASTROENTEROLOGY PROGRESS NOTE ---
DATE: 09/11/2016 SUBJECTIVE: The patient is status post colonoscopy yesterday for a microcytic anemia. Several polyps were identified and removed. The patient had no further bleeding overnight. The patient is for discharge later today. The source of the patient's significant bleeding and anemia is unclear as these polyps are unlikely to be a source for a significant microcytic anemia. Upper endoscopy on September 09 revealed nodules in the bulb, but no mucosal defects were identified. The biopsies revealed gastric metaplasia, focal in the small bowel with otherwise benign small bowel mucosa without evidence of duodenitis. MEDICATIONS: Reviewed and reconciled. PHYSICAL EXAMINATION: Unchanged and benign. The patient's vital signs today are stable with blood pressure 149/76, respirations 20, heart rate 62, oral 36.4, 96% on room air. RECOMMENDATIONS: I made the following recommendations given the patient's evidence of iron deficiency anemia and lack of significant upper or lower findings, an outpatient a video small bowel capsule endoscopy is reasonable and this will be arranged as an outpatient in addition to follow up in GI clinic. All questions answered for the patient. Further, the patient will be performed of the results polyps from colonoscopy once available.
[2017-01-21] MEDS ORDERED: METO50TA7 PO (13:17)
[2017-01-21] MEDS ORDERED: CLOP1TAB15 PO (13:17)
[2017-01-21] MEDS ORDERED: FERR1TAB13 PO (13:17)
[2017-01-21] MEDS ORDERED: VTMD1000 PO (13:17)
[2017-01-21] MEDS ORDERED: BENA20TA14 PO (13:17)
[2017-01-21] MEDS ORDERED: PANT40TA PO (13:17)
[2017-01-21] MEDS ORDERED: MULT-506 PO (13:17)
[2017-01-21] MEDS ORDERED: SENN-61 PO (13:17)
[2017-01-21] MEDS ORDERED: FURO40TA3 PO (13:17)
== END 2016-09-11 16:27 | disposition home or self-care (01) | DRG 291 ==
LOC: ENRESERVTM → ENRESERVDT → EDBD 10:54 → C.EDC 10:58 → C.MED 14:19 → C.MS4W 09-06 15:43
PROVIDERS: ADMIT Hospitalist; ATTEND Internal Medicine
PROC: 0DB98ZX Excision of Duodenum, Via Natural or Artificial Opening Endoscopic, Diagnostic (ICD-10-PCS; principal; 2016-09-09 13:17)
PROC: 0DBK8ZX Excision of Ascending Colon, Via Natural or Artificial Opening Endoscopic, Diagnostic (ICD-10-PCS; 2016-09-10)
PROC: 0DBP8ZX Excision of Rectum, Via Natural or Artificial Opening Endoscopic, Diagnostic (ICD-10-PCS; 2016-09-10)
PROC: 0DBL8ZX Excision of Transverse Colon, Via Natural or Artificial Opening Endoscopic, Diagnostic (ICD-10-PCS; 2016-09-10)
DX: I13.0 Hypertensive heart and chronic kidney disease with heart failure and stage 1 through stage 4 chronic kidney disease, or unspecified chronic kidney disease (principal); J96.01 Acute respiratory failure with hypoxia; K57.91 Diverticulosis of intestine, part unspecified, without perforation or abscess with bleeding; I50.43 Acute on chronic combined systolic (congestive) and diastolic (congestive) heart failure; I24.8 Other forms of acute ischemic heart disease; J98.11 Atelectasis; I25.10 Atherosclerotic heart disease of native coronary artery without angina pectoris; D50.0 Iron deficiency anemia secondary to blood loss (chronic); F32.9 Major depressive disorder, single episode, unspecified; I08.0 Rheumatic disorders of both mitral and aortic valves; I25.5 Ischemic cardiomyopathy; D12.3 Benign neoplasm of transverse colon; Z87.891 Personal history of nicotine dependence; M19.90 Unspecified osteoarthritis, unspecified site; M10.9 Gout, unspecified; E78.5 Hyperlipidemia, unspecified; Z83.3 Family history of diabetes mellitus; Z82.49 Family history of ischemic heart disease and other diseases of the circulatory system; Z79.82 Long term (current) use of aspirin; E55.9 Vitamin D deficiency, unspecified; E87.6 Hypokalemia

== ENCOUNTER → 2016-09-17 | Outpatient (CLI) | payer BC ==
[~2016-09-17] MED LIST changes: +CLOP1TAB15 PO; +FERR1TAB13 PO; +FURO40TA3 PO; -HYDR12.55 PO; +LSX40 PO; +METO50TA7 PO; +MRLP17 OR; +MULT-506 PO; +MULTTAB58 PO; +PANT40TA PO; +SENN-61 PO; +SENN-65 PO; +VTMD1000 PO
[2016-09-17 12:36] LABS: BLOOD UREA NITROGEN 15 mg/dl (7-18); BUN/CREATININE RATIO 16.8 (10-20); CALCIUM 8.5 mg/dl (8.5-10.1); CARBON DIOXIDE 30 mmol/L (21-32); CHLORIDE 100 mmol/L (98-107); CREATININE 0.88 mg/dl (0.60-1.40); GLUCOSE 80 mg/dl (70-99); MAGNESIUM 2.6 mg/dl (1.8-2.4); POTASSIUM 4.7 mmol/L (3.5-5.1); SODIUM 136 mmol/L (136-145)
== END | disposition home or self-care (01) ==
LOC: C.LAB 10:54
PROVIDERS: ATTEND Internal Medicine
DX: I50.21 Acute systolic (congestive) heart failure (principal)

== ENCOUNTER → 2016-10-10 | Outpatient (CLI) | payer BC ==
[2016-10-10 10:47] LABS: BASO % 0.6 %; BASO ABS # 0.04 K/uL (0-0.2); EOS % 4.8 %; HEMATOCRIT 24.8 % (42-52); IG% 0.4 %; LYMPH % 10.9 %; LYMPH ABS # 0.78 K/uL (1.2-3.4); MEAN CELL VOLUME 85.5 fL (80-100); MEAN CORPUSCULAR HEMOGLOBIN 25.9 pg (25-34); MEAN CORPUSCULAR HGB CONC 30.2 g/dl (32-36); MEAN PLATELET VOLUME 9.2 fL (7.4-10.4); MONO % 7.3 %; PLATELET COUNT 279 K/uL (130-400); WHITE BLOOD COUNT 7.13 K/uL (4.8-10.8)
[2016-10-10 11:05] LABS: HA1C FLAG Normal (Normal)
[2016-10-10 11:13] LABS: ALT/SGPT 34 U/L (12-78); AST/SGOT 22 U/L (15-37); BLOOD UREA NITROGEN 23 mg/dl (7-18); BUN/CREATININE RATIO 25.6 (10-20); CALCIUM 8.5 mg/dl (8.5-10.1); CARBON DIOXIDE 27 mmol/L (21-32); CHLORIDE 98 mmol/L (98-107); CHOLESTEROL 91 mg/dl (0-200); CREATININE 0.89 mg/dl (0.60-1.40); GLUCOSE 91 mg/dl (70-99); POTASSIUM 4.7 mmol/L (3.5-5.1); SODIUM 133 mmol/L (136-145)
[2016-10-10 11:24] LABS: ALB/GLOB RATIO 0.8 (0.9-2); ALKALINE PHOSPHATASE 232 U/L (45-117); CHOLESTEROL/HDL RATIO 2.8; HDL CHOLESTEROL 33 mg/dl; LDL CHOLESTEROL CALCULATED 30 mg/dl; TRIGLYCERIDES 139 mg/dl (0-150); VERY LOW DENSITY LIPOPROT CALC 28 mg/dl
[2016-10-10 11:40] LABS: ANISOCYTOSIS PRESENT; COMPLETE YES; POIKILOCYTOSIS PRESENT
[2016-10-10 12:45] LABS: ESTIMATED AVERAGE GLUCOSE 68 mg/dl
== END | disposition home or self-care (01) ==
LOC: C.LAB 09:40
PROVIDERS: ATTEND Internal Medicine
DX: I10 Essential (primary) hypertension (principal); R73.01 Impaired fasting glucose

== ENCOUNTER → 2016-10-18 | Outpatient (CLI) | payer BC ==
[~2016-10-18] MED LIST changes: -SENN-65 PO
[2016-10-18 13:08] LABS: BASO % 0.6 %; BASO ABS # 0.04 K/uL (0-0.2); EOS % 5.6 %; HEMATOCRIT 28.3 % (42-52); IG% 0.3 %; LYMPH % 13.4 %; LYMPH ABS # 0.84 K/uL (1.2-3.4); MEAN CELL VOLUME 87.9 fL (80-100); MEAN CORPUSCULAR HGB CONC 31.8 g/dl (32-36); MEAN PLATELET VOLUME 9.6 fL (7.4-10.4); MONO % 7.7 %; NEUT % 72.4 %; PLATELET COUNT 250 K/uL (130-400); RED BLOOD COUNT 3.22 M/uL (4.7-6.1); WHITE BLOOD COUNT 6.26 K/uL (4.8-10.8)
[2016-10-18 14:00] LABS: ANISOCYTOSIS PRESENT; COMPLETE YES; TEAR DROP CELLS 1+
== END | disposition home or self-care (01) ==
LOC: C.LAB 12:29
PROVIDERS: ATTEND Internal Medicine
DX: I25.10 Atherosclerotic heart disease of native coronary artery without angina pectoris (principal)

== ENCOUNTER → 2016-10-28 | Outpatient (CLI) | payer BC ==
[~2016-10-28] MED LIST changes: +METO-452 PO; -METO1TAB66 PO
[2016-10-28 12:12] LABS: BASO % 0.7 %; BASO ABS # 0.04 K/uL (0-0.2); EOS % 5.5 %; HEMATOCRIT 27.1 % (42-52); IG% 0.2 %; LYMPH % 11.2 %; LYMPH ABS # 0.67 K/uL (1.2-3.4); MEAN CORPUSCULAR HEMOGLOBIN 27.9 pg (25-34); MEAN PLATELET VOLUME 9.6 fL (7.4-10.4); MONO % 7.9 %; NEUT % 74.5 %; PLATELET COUNT 255 K/uL (130-400); RED BLOOD COUNT 3.01 M/uL (4.7-6.1); WHITE BLOOD COUNT 5.98 K/uL (4.8-10.8)
[2016-10-28 13:12] LABS: ANISOCYTOSIS PRESENT; COMPLETE YES; POIKILOCYTOSIS PRESENT; TEAR DROP CELLS 1+
== END | disposition home or self-care (01) ==
LOC: C.LAB 10:22
PROVIDERS: ATTEND Internal Medicine
DX: D50.0 Iron deficiency anemia secondary to blood loss (chronic) (principal)

== ENCOUNTER → 2016-11-04 | Outpatient (CLI) | payer BC ==
[2016-11-04 12:40] LABS: BASO % 0.5 %; BASO ABS # 0.03 K/uL (0-0.2); EOS % 3.2 %; HEMATOCRIT 25.7 % (42-52); IG% 0.3 %; LYMPH % 11.4 %; LYMPH ABS # 0.68 K/uL (1.2-3.4); MEAN CELL VOLUME 87.4 fL (80-100); MEAN CORPUSCULAR HEMOGLOBIN 27.2 pg (25-34); MEAN CORPUSCULAR HGB CONC 31.1 g/dl (32-36); NEUT % 75.6 %; PLATELET COUNT 291 K/uL (130-400); RED BLOOD COUNT 2.94 M/uL (4.7-6.1); WHITE BLOOD COUNT 5.98 K/uL (4.8-10.8)
[2016-11-04 13:07] LABS: ANISOCYTOSIS PRESENT; COMPLETE YES; POIKILOCYTOSIS PRESENT; TEAR DROP CELLS 1+
== END | disposition home or self-care (01) ==
LOC: C.LAB 10:55
PROVIDERS: ATTEND Internal Medicine
DX: Z00.00 Encounter for general adult medical examination without abnormal findings (principal)

== ENCOUNTER → 2016-12-05 | Outpatient (CLI) | payer BC ==
[2016-12-05 16:59] LABS: BASO % 0.6 %; BASO ABS # 0.04 K/uL (0-0.2); EOS % 4.8 %; HEMATOCRIT 26.8 % (42-52); IG% 0.3 %; LYMPH % 15.6 %; LYMPH ABS # 1.04 K/uL (1.2-3.4); MEAN CELL VOLUME 84.8 fL (80-100); MEAN CORPUSCULAR HEMOGLOBIN 24.7 pg (25-34); MEAN CORPUSCULAR HGB CONC 29.1 g/dl (32-36); MEAN PLATELET VOLUME 10.1 fL (7.4-10.4); MONO % 9.4 %; NEUT % 69.3 %; PLATELET COUNT 309 K/uL (130-400); RED BLOOD COUNT 3.16 M/uL (4.7-6.1); WHITE BLOOD COUNT 6.67 K/uL (4.8-10.8)
[2016-12-05 17:15] LABS: ALT/SGPT 31 U/L (12-78); AST/SGOT 26 U/L (15-37); BLOOD UREA NITROGEN 28 mg/dl (7-18); BUN/CREATININE RATIO 28.5 (10-20); CALCIUM 8.5 mg/dl (8.5-10.1); CARBON DIOXIDE 28 mmol/L (21-32); CHLORIDE 99 mmol/L (98-107); CREATININE 0.98 mg/dl (0.60-1.40); GLUCOSE 101 mg/dl (70-99); POTASSIUM 4.6 mmol/L (3.5-5.1); SODIUM 132 mmol/L (136-145)
[2016-12-05 17:17] LABS: ALB/GLOB RATIO 0.9 (0.9-2); ALKALINE PHOSPHATASE 227 U/L (45-117)
[2016-12-05 17:28] LABS: ACANTHOCYTES 1+; ANISOCYTOSIS PRESENT; COMPLETE YES; HYPOCHROMIA PRESENT; TEAR DROP CELLS 1+
[2016-12-06 07:16] LABS: ESTIMATED AVERAGE GLUCOSE 85 mg/dl; HA1C FLAG Normal (Normal)
== END | disposition home or self-care (01) ==
LOC: C.LABBC 14:47
PROVIDERS: ATTEND Internal Medicine
DX: E55.9 Vitamin D deficiency, unspecified (principal); R73.01 Impaired fasting glucose

== ENCOUNTER → 2016-12-11 | Outpatient (CLI) | payer BC | END | disposition home or self-care (01) | LOC: C.LAB 13:04 | PROVIDERS: ATTEND Internal Medicine | DX: D64.9 Anemia, unspecified (principal) ==

== ENCOUNTER → 2017-01-01 | Outpatient (CLI) | payer BC ==
[2017-01-01 15:05] LABS: HEMATOCRIT 30.2 % (42-52); MEAN CORPUSCULAR HEMOGLOBIN 25.4 pg (25-34); MEAN CORPUSCULAR HGB CONC 29.5 g/dl (32-36); MEAN PLATELET VOLUME 10.6 fL (7.4-10.4); PLATELET COUNT 279 K/uL (130-400); RED BLOOD COUNT 3.51 M/uL (4.7-6.1); WHITE BLOOD COUNT 5.99 K/uL (4.8-10.8)
[2017-01-01 15:28] LABS: FERRITIN 80.8 ng/ml (8.0-388.0)
== END | disposition home or self-care (01) ==
LOC: C.LAB 13:59
PROVIDERS: ATTEND Internal Medicine Gastroenterology
DX: D64.9 Anemia, unspecified (principal)

== ENCOUNTER → 2017-01-23 | Day surgery (SDC) | payer BC ==
[2017-01-21 13:17] VITALS: Ht 175.3 cm; Wt 78.2 kg
[~2017-01-23] VITALS: Ht 175.3 cm; Wt 78.2 kg
[~2017-01-23] MED LIST changes: +ETOMIDATE 2 MG/ML 20 ML VIAL IV ONE; +LIDOCAINE HCL 2% 2 ML VIAL (20MG/ML) ONE; -LSX40 PO; -METO-452 PO; -MRLP17 OR; -MULTTAB58 PO; +PHENYLEPHRINE 100MCG/ML 5ML SYR ONE; -PLV75 PO; +PROPOFOL IV EMULSION 10 MG/ML 20 ML VIAL IV ONE; +SODIUM CHLORIDE 0.9% 500ML 500 ML IV ONE
--- NOTE | 2017-01-23 15:07 | Endo History and Physical ---
History & Physical Date of Service: Jan 23, 2017. Chief Complaint: ANEMIA Referring Physician: DR. ALEJANDRA LI History of Present Illness anemia Past Surgical History Hx Cardiac Surgery: Yes (03/2016 HEART CATH X 3 STENTS) Hx Internal Defibrillator: No Hx Pacemaker: No Hx Abdominal Surgery: No Hx Post-Op Nausea and Vomiting: No Hx Cancer Surgery: No Hx Thoracic Surgery: No Hx Orthopedic: Yes (L knee surgery x 3) Hx Urinary Tract Surgery: No Family History None Social History Smoking Status: Former Smoker Hx Substance Use: No Hx Alcohol Use: Yes (occasional beer) Allergies Coded Allergies: No Known Allergies (Verified , 01/23/17) Current Medications Reported Home Medications Medications Dose Route/Sig Max Daily Dose Days Date Category Dose Instructions Multivitamin (Multivitamins) Tab 1 Tab PO QAM 01/21/17 Reported Lotensin (Benazepril HCl) 20 Mg Tab 20 Mg PO QAM 01/21/17 Reported Plavix (Clopidogrel Bisulfate) 75 Mg Tab 75 Mg PO QAM 01/21/17 Reported HE WAS INSTRUCTED NOT TO STOP Vitamin D3 (Cholecalciferol) 1,000 Inter.unit Tab 1 Tab PO QAM 01/21/17 Reported Protonix (Pantoprazole Sodium) 40 Mg Tab 40 Mg PO QAM 01/21/17 Reported Lasix (Furosemide) 40 Mg Tab 40 Mg PO QAM 01/21/17 Reported Toprol-Xl (Metoprolol Succinate) 50 Mg Tabcr 75 Mg PO QAM 01/21/17 Reported Kp Ferrous Sulfate (Ferrous Sulfate) 325 Mg Tab 1 Tab PO BID 01/21/17 Reported Senokot (Senna) 8.6 Mg Tab 1 Tab PO QAM 01/21/17 Reported Lipitor (Atorvastatin Calcium) 40 Mg Tab 1 Tab PO QAM 30 04/19/16 Reported Tylenol (Acetaminophen) 325 Mg Tab 325 Mg PO PRN 04/19/16 Reported Zoloft (Sertraline HCl) 50 Mg Tab 1.5 Tab PO QAM 30 03/29/16 Reported Lumigan (Bimatoprost) 0.01 % Taniya 1 Drops OP HS 90 03/29/16 Reported Aspirin Ec (Aspirin) 81 Mg Tab 81 Mg PO QAM 03/29/16 Reported Vital Signs Weight (Kilograms): 78.18 Height (Feet): 5 Height (Inches): 9 Physical Exam AAOx3 Nls1s2 lungsCTA Abd soft NT/ND + BS - CCE Assessment and Plan EGD today
--- NOTE | 2017-01-23 16:14 | GI REPORT ---
Procedure Date: 01/23/2017 3:21 PM Procedure: Upper GI endoscopy Indications: Iron deficiency anemia secondary to chronic blood loss Medicines: Propofol per Anesthesia Complications: No immediate complications. Estimated blood loss: Minimal. Estimated Blood Loss: Estimated blood loss was minimal. Procedure: Pre-Anesthesia Assessment: - Prior to the procedure, a History and Physical was performed, and patient medications and allergies were reviewed. The patient's tolerance of previous anesthesia was also reviewed. The risks and benefits of the procedure and the sedation options and risks were discussed with the patient. All questions were answered, and informed consent was obtained. Prior Anticoagulants: The patient has taken Plavix (clopidogrel). ASA Grade Assessment: III - A patient with severe systemic disease. After reviewing the risks and benefits, the patient was deemed in satisfactory condition to undergo the procedure. After obtaining informed consent, the endoscope was passed under direct vision. Throughout the procedure, the patient's blood pressure, pulse, and oxygen saturations were monitored continuously. The scope was introduced through the mouth, and advanced to the mid-jejunum. The upper GI endoscopy was accomplished without difficulty. The patient tolerated the procedure well. Findings: The examined esophagus was normal. The entire examined stomach was normal. Normal mucosa was found in the duodenal bulb. A single 8 mm sessile polyp with no bleeding was found in the second part of the duodenum. The polyp was removed with a cold biopsy forceps. Resection and retrieval were complete. Fulguration to ablate the lesion remnants by bipolar probe was successful. To prevent bleeding after the polypectomy, four hemostatic clips were successfully placed (MR conditional). There was no bleeding at the end of the procedure. The exam of the duodenum was otherwise normal. One 5 mm angiodysplastic lesion without bleeding was found in the jejunum. Fulguration to ablate the lesion to prevent bleeding by bipolar probe was successful. The cardia and gastric fundus were normal on retroflexion. Retained gastric contents are not identified on this exam. Impression: - Normal esophagus. - Normal stomach. - Normal mucosa was found in the duodenal bulb. - A single duodenal polyp. Resected and retrieved. Treated with bipolar cautery. Clips (MR conditional) were placed. 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 Treated with bipolar cautery. Recommendation: - Discharge patient to home (ambulatory). - Return to referring physician as previously scheduled. - Continue present medications. - Await pathology results. - Check hemoglobin weekly. MD Ray Woodson MD 01/23/2017 4:13:49 PM This report has been signed electronically. Note Initiated On: 01/23/2017 3:21 PM I attest to the content of the Intraoperative Record and orders documented therein, exceptions below
--- NOTE | 2017-01-23 16:43 | Anesthesiology Progress Note ---
Anesthesia Post Op Note Date & Time Jan 23, 2017 at 16:43 Vital Signs Vital Signs Past 12 Hours Date Time Temp Pulse Resp B/P (MAP) Pulse Ox O2 Delivery O2 Flow Rate FiO2 01/23/17 16:28 58 20 102/54 (70) 92 Room Air 01/23/17 16:13 59 20 112/50 (70) 95 Room Air 01/23/17 15:05 36.7 57 16 133/63 (86) 96 Room Air Notes Mental Status: alert / awake / arousable, participated in evaluation Pt Amnestic to Procedure: Yes Nausea / Vomiting: adequately controlled Pain: adequately controlled Airway Patency, RR, SpO2: stable & adequate BP & HR: stable & adequate Hydration State: stable & adequate Anesthetic Complications: no major complications apparent
--- NOTE | 2017-01-23 17:06 | Discharge Instructions ---
Endoscopy Patient Instructions Date / Procedure(s) Performed Jan 23, 2017. EGD Allergy Information Coded Allergies: No Known Allergies (Verified , 01/23/17) Discharge Date / Findings Jan 23, 2017. 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 Medication Instructions Stopped Medication(s): ASPIRIN LAST DOSE 01/22/17 PLAVIX LAST DOSE 01/23/17 Restart Stopped Medication(s): Reported Home Medications Medications Dose Route/Sig Max Daily Dose Days Date Category Dose Instructions Multivitamin (Multivitamins) Tab 1 Tab PO QAM 01/21/17 Reported Lotensin (Benazepril HCl) 20 Mg Tab 20 Mg PO QAM 01/21/17 Reported Plavix (Clopidogrel Bisulfate) 75 Mg Tab 75 Mg PO QAM 01/21/17 Reported HE WAS INSTRUCTED NOT TO STOP Vitamin D3 (Cholecalciferol) 1,000 Inter.unit Tab 1 Tab PO QAM 01/21/17 Reported Protonix (Pantoprazole Sodium) 40 Mg Tab 40 Mg PO QAM 01/21/17 Reported Lasix (Furosemide) 40 Mg Tab 40 Mg PO QAM 01/21/17 Reported Toprol-Xl (Metoprolol Succinate) 50 Mg Tabcr 75 Mg PO QAM 01/21/17 Reported Kp Ferrous Sulfate (Ferrous Sulfate) 325 Mg Tab 1 Tab PO BID 01/21/17 Reported Senokot (Senna) 8.6 Mg Tab 1 Tab PO QAM 01/21/17 Reported Lipitor (Atorvastatin Calcium) 40 Mg Tab 1 Tab PO QAM 30 04/19/16 Reported Tylenol (Acetaminophen) 325 Mg Tab 325 Mg PO PRN 04/19/16 Reported Zoloft (Sertraline HCl) 50 Mg Tab 1.5 Tab PO QAM 30 03/29/16 Reported Lumigan (Bimatoprost) 0.01 % Taniya 1 Drops OP HS 90 03/29/16 Reported Aspirin Ec (Aspirin) 81 Mg Tab 81 Mg PO QAM 03/29/16 Reported Reported Home Medications Medications Dose Route/Sig Max Daily Dose Days Date Category Dose Instructions Multivitamin (Multivitamins) Tab 1 Tab PO QAM 01/21/17 Reported Lotensin (Benazepril HCl) 20 Mg Tab 20 Mg PO QAM 01/21/17 Reported Plavix (Clopidogrel Bisulfate) 75 Mg Tab 75 Mg PO QAM 6/27/17 Reported HE WAS INSTRUCTED NOT TO STOP Vitamin D3 (Cholecalciferol) 1,000 Inter.unit Tab 1 Tab PO QAM 01/21/17 Reported Protonix (Pantoprazole Sodium) 40 Mg Tab 40 Mg PO QAM 01/21/17 Reported Lasix (Furosemide) 40 Mg Tab 40 Mg PO QAM 01/21/17 Reported Toprol-Xl (Metoprolol Succinate) 50 Mg Tabcr 75 Mg PO QAM 01/21/17 Reported Kp Ferrous Sulfate (Ferrous Sulfate) 325 Mg Tab 1 Tab PO BID 01/21/17 Reported Senokot (Senna) 8.6 Mg Tab 1 Tab PO QAM 01/21/17 Reported Lipitor (Atorvastatin Calcium) 40 Mg Tab 1 Tab PO QAM 30 04/19/16 Reported Tylenol (Acetaminophen) 325 Mg Tab 325 Mg PO PRN 04/19/16 Reported Zoloft (Sertraline HCl) 50 Mg Tab 1.5 Tab PO QAM 30 03/29/16 Reported Lumigan (Bimatoprost) 0.01 % Taniya 1 Drops OP HS 90 03/29/16 Reported Aspirin Ec (Aspirin) 81 Mg Tab 81 Mg PO QAM 03/29/16 Reported Provider Instructions Activity Restrictions - No exercising or heavy lifting for 24 hours. - Do not drink alcohol the day of the procedure. - Do not drive a car or operate machinery until the day after the procedure. - Do not make any important decisions or sign important papers in 24 hours after the procedure. Following Day: - Return to full activity which may include returning to work/school. Diet Start your diet with liquids and light foods (jello, soup, juice, toast). Then eat your usual diet if not nauseated. Treatment For Common After Affects For mild abdominal pain, bloating, or excessive gas: - Rest - Eat lightly - Lie on right side Follow-Up Information Follow-up with DR. ALEJANDRA LI as scheduled Anesthesia Information What You Should Know You have had a procedure that required some medicine to reduce anxiety and discomfort. This treatment is called moderate sedation. After receiving the treatment, you may be sleepy, but you will be able to breathe on your own. The effects of the treatment may last for several hours. Follow these instructions along with Activity/Diet recommendations noted above: * Do NOT do anything where dizziness or clumsiness would be dangerous. * Rest quietly at home today, then you can be up and about tomorrow. * Have a responsible person stay with you the rest of today. * You may have had an I.V. today. If so, you may take the dressing off later today. Recommendations Call your doctor if: * Trouble breathing * Continuous vomiting for more than 24 hours * Temperature above 101 degrees * Severe abdominal pain or bloating * Pain not relieved by pain medicine ordered * There is increased drainage or redness from any incision * A large amount of rectal bleeding greater than 2-3 tablespoons. (If you had a polyp/s removed or have hemorrhoids, a small amount of blood - from the rectum is to be expected.) * You have any unanswered questions or concerns. IN THE EVENT OF A SERIOUS EMERGENCY, GO TO THE NEAREST EMERGENCY ROOM Your discharge instructions were prepared by provider Ray Caldera. Patient Instructions Signature Page Vasu Rizo Patient (or Guardian) Signature/Date: I have read and understand the instructions given to me by my caregivers. Caregiver/RN/Doctor Signature/Date: The above-named patient and/or guardian has received patient instructions on this date. + Original Patient Signature Page (only) stays with chart. Please make copy for patient.
[2017-01-23 17:10] VITALS: BP 107/72; PULSE 55; O2SAT 94
== END | disposition home or self-care (01) ==
LOC: C.GI 14:01
PROVIDERS: ATTEND Internal Medicine Gastroenterology
DX: D64.9 Anemia, unspecified (principal); K31.7 Polyp of stomach and duodenum; Z79.82 Long term (current) use of aspirin; Z87.891 Personal history of nicotine dependence

== ENCOUNTER 2017-08-06 16:52 | Emergency (ER) | payer BC ==
[~2017-08-06 16:52] MED LIST changes: -ETOMIDATE 2 MG/ML 20 ML VIAL IV ONE; -LIDOCAINE HCL 2% 2 ML VIAL (20MG/ML) ONE; -PHENYLEPHRINE 100MCG/ML 5ML SYR ONE; -PROPOFOL IV EMULSION 10 MG/ML 20 ML VIAL IV ONE; -SODIUM CHLORIDE 0.9% 500ML 500 ML IV ONE
[2017-08-06 17:12] VITALS: TEMP 36.6; Ht 175.3 cm
--- NOTE | 2017-08-06 18:46 | EMERGENCY ROOM VISIT NOTE ---
History Report prepared by Simba: Cheli Basurto Under the Supervision of: Dr. Emilee Anglin M.D. First contact with patient: 18:26 Chief Complaint: ABDOMINAL PAIN Stated Complaint: MAJOR ABD PAIN,TROUBLE SWALLOWING,WEAK,TROUBLE WAL Nursing Triage Summary: abdominal pain, nausea, vomiting. History of Present Illness The patient is a 71 year old male who presents to the Emergency Room with complaints of constant abdominal pain beginning several weeks ago. Per his family, the patient has also been losing weight and has had trouble swallowing normal foods. His family reports that the patient lost 11-12 pounds in a 3 week span. Per family, the patient has also been coughing and has been short of breath. He denies having blood in his stool, and also denies coughing up or vomiting blood. The patient reports that he was a former smoker and that he has not had alcohol over the last year. Source of History: patient, family Onset: several weeks ago Position: abdomen Timing: constant Associated Symptoms: + cough, + SOB, No vomiting (blood) Note: additional symptoms: weight loss, trouble swallowing food denies: blood in stool and coughing up blood Review of Systems See HPI for pertinent positives & negatives. A total of 10 systems reviewed and were otherwise negative. Past Medical & Surgical Medical Problems: (1) Acute exacerbation of CHF (congestive heart failure) (2) CAD in [place] artery Family History No pertinent family history stated. Social History Smoking Status: Former Smoker Drug Use: none Marital Status: Occupation Status: retired Current/Historical Medications Scheduled Aspirin (Aspirin Ec), 81 MG PO QAM Atorvastatin (Lipitor), 80 MG PO DAILY Benazepril (Lotensin), 20 MG PO QAM Bimatoprost (Lumigan), 1 DROPS OP HS Cholecalciferol (Vitamin D3), 2,000 UNITS PO QAM Ferrous Sulfate (Kp Ferrous Sulfate), 1 TAB PO BID Furosemide (Lasix), 40 MG PO QAM Metoprolol Succ (Toprol Xl) (Toprol-Xl ), 100 MG PO BID Multivitamin (Multivitamin), 1 TAB PO QAM Pantoprazole (Protonix), 40 MG PO QAM Senna (Senokot), 1 TAB PO QAM Sertraline (Zoloft), 1.5 TAB PO QAM Scheduled PRN Acetaminophen (Tylenol), 325 MG PO DAILY PRN for Pain or Fever Allergies Coded Allergies: No Known Allergies (Verified , 08/06/17) Physical Exam Vital Signs Date Time Temp Pulse Resp B/P (MAP) Pulse Ox O2 Delivery O2 Flow Rate FiO2 08/06/17 23:20 75 16 122/77 93 08/06/17 20:51 76 20 111/64 93 Room Air 08/06/17 19:44 85 08/06/17 17:12 36.6 100 18 96 Room Air Physical Exam Vital signs reviewed. General: Elderly, chronically ill appearing male, in no significant distress. HEENT: No scleral icterus, PERRLA, neck supple. Atraumatic. Dry mucous membranes. Cardiovascular: Regular rate and rhythm, no extra sounds. Pulmonary: Clear to auscultation bilaterally, normal work of breathing. Abdomen: Soft, mild suprapubic tenderness, no rebound or guarding, no significant abdominal distension, positive bowel sounds. Musculoskeletal: Atraumatic, no peripheral edema. Neurologic: Patient awake alert and oriented x 3 Skin: Warm, dry, no rash. Medical Decision & Procedures ER Provider Diagnostic Interpretation: Radiology results as stated below per my review and radiologist interpretation: CT OF THE ABDOMEN AND PELVIS WITH CONTRAST CLINICAL HISTORY: Lower abdominal pain and cramping. Weight loss. COMPARISON STUDY: Chest CT September 04, 2016. TECHNIQUE: Following IV administration of 115 mL of Optiray-320, axial images of the abdomen and pelvis were obtained from the lung bases to the proximal femurs. Images were reviewed in the axial, sagittal, and coronal planes. IV contrast was administered without complication. A dose lowering technique was utilized adhering to the principles of ALARA. CT DOSE: 307.81 mGy.cm FINDINGS: Images of the lower chest partially visualize a moderate to large complex right pleural effusion with pleural thickening. There is also a small complex left pleural effusion with pleural thickening. Left lower lobe and lingular opacities favor round atelectasis. There is also significant right lower lobe opacity with volume loss. This favors atelectasis as well. The heart is moderately enlarged. There is extensive coronary artery calcification. No pneumatosis, free air or portal venous gas is present. There is fatty infiltration of the liver. Size of the spleen is at the upper limits of normal. The adrenal glands and pancreas are unremarkable. There is no biliary or pancreatic ductal dilatation. Numerous water attenuation renal lesions reflect cysts. There are multiple subcentimeter lesions which are too small to characterize. Note is made of a 3.2 cm infrarenal abdominal aortic aneurysm. A left common iliac artery aneurysm measures 2.5 cm. A right common iliac artery aneurysm measures 2.1 cm. There is no evidence for rupture. There is extensive atherosclerotic plaque. No pneumatosis, free air or portal venous gas is present. There is no lymphadenopathy. There is sigmoid diverticulosis without evidence for acute diverticulitis. Apparent diffuse gastric fold thickening is noted. The appendix is likely normal. No suspicious skeletal lesions are identified. IMPRESSION: 1. Diffuse gastric fold thickening. Although this could be due to underdistention, the findings raise the possibility of gastritis. A neoplastic etiology could appear similar. GI consultation could be obtained for consideration for upper endoscopy. 2. No bowel obstruction. 3. Partially visualized moderate to large right pleural effusion and a small left effusion. Bilateral pleural thickening. Associated pleural thickening may indicate chronic pleural effusions. However, infectious or neoplastic etiologies could result in a similar appearance. This could be correlated with right thoracentesis. Extensive associated subpleural opacities favor atelectasis. 4. Moderate cardiomegaly. 5. Sigmoid diverticulosis without evidence for acute diverticulitis. 6. 3.2 cm infrarenal abdominal aortic aneurysm and bilateral common iliac artery aneurysms, as described above. No rupture. Electronically signed by: Lonnie Almanza M.D. 08/06/2017 10:14 PM Dictated Date/Time: 08/06/2017 9:58 PM Laboratory Results 08/06/17 19:15 Red Blood Count 4.53, Mean Corpuscular Volume 77.3, Mean Corpuscular Hemoglobin 24.5, Mean Corpuscular Hemoglobin Concent 31.7, Mean Platelet Volume 9.8, Neutrophils (%) (Auto) 80.3, Lymphocytes (%) (Auto) 8.0, Monocytes (%) (Auto) 9.3, Eosinophils (%) (Auto) 1.9, Basophils (%) (Auto) 0.4, Neutrophils # (Auto) 6.19, Lymphocytes # (Auto) 0.62, Monocytes # (Auto) 0.72, Eosinophils # (Auto) 0.15, Basophils # (Auto) 0.03 08/06/17 19:15 Test 08/06/17 19:15 08/06/17 20:55 White Blood Count 7.72 K/uL (4.8-10.8) Red Blood Count 4.53 M/uL (4.7-6.1) Hemoglobin 11.1 g/dL (14.0-18.0) Hematocrit 35.0 % (42-52) Mean Corpuscular Volume 77.3 fL (80-100) Mean Corpuscular Hemoglobin 24.5 pg (25-34) Mean Corpuscular Hemoglobin Concent 31.7 g/dl (32-36) Platelet Count 336 K/uL (130-400) Mean Platelet Volume 9.8 fL (7.4-10.4) Neutrophils (%) (Auto) 80.3 % Lymphocytes (%) (Auto) 8.0 % Monocytes (%) (Auto) 9.3 % Eosinophils (%) (Auto) 1.9 % Basophils (%) (Auto) 0.4 % Neutrophils # (Auto) 6.19 K/uL (1.4-6.5) Lymphocytes # (Auto) 0.62 K/uL (1.2-3.4) Monocytes # (Auto) 0.72 K/uL (0.11-0.59) Eosinophils # (Auto) 0.15 K/uL (0-0.5) Basophils # (Auto) 0.03 K/uL (0-0.2) RDW Standard Deviation 52.7 fL (36.4-46.3) RDW Coefficient of Variation 19.0 % (11.5-14.5) Immature Granulocyte % (Auto) 0.1 % Immature Granulocyte # (Auto) 0.01 K/uL (0.00-0.02) Anion Gap 7.0 mmol/L (3-11) Estimated GFR () 92.9 Estimated GFR (Non- 80.1 BUN/Creatinine Ratio 14.8 (10-20) Calcium Level 9.1 mg/dl (8.5-10.1) Total Bilirubin 0.6 mg/dl (0.2-1) Direct Bilirubin 0.2 mg/dl (0-0.2) Aspartate Amino Transf (AST/SGOT) 36 U/L (15-37) Alanine Aminotransferase (ALT/SGPT) 41 U/L (12-78) Alkaline Phosphatase 246 U/L (45-117) Total Protein 6.9 gm/dl (6.4-8.2) Albumin 2.7 gm/dl (3.4-5.0) Lipase 116 U/L (73-393) Urine Color YELLOW Urine Appearance CLEAR (CLEAR) Urine pH 5.5 (4.5-7.5) Urine Specific [place] 1.014 (1.000-1.030) Urine Protein NEG (NEG) Urine Glucose (UA) NEG (NEG) Urine Ketones NEG (NEG) Urine Occult Blood NEG (NEG) Urine Nitrite NEG (NEG) Urine Bilirubin NEG (NEG) Urine Urobilinogen NEG (NEG) Urine Leukocyte Esterase NEG (NEG) Laboratory results per my review. Medications Administered Medications (Trade) Dose Ordered Sig/Kaitlynn Route Start Time Stop Time Status Last Admin Dose Admin Sodium Chloride 1,000 ml @ 125 mls/hr Q8H STAT IV 08/06/17 18:49 08/07/17 00:43 DC 08/06/17 19:30 125 MLS/HR ED Course 184: Past medical records reviewed. The patient was evaluated in room C7. A complete history and physical examination was performed. 184: Ordered Sodium Chloride 1,000 ml @ 125 mls/hr IV. 2224: I updated the patient on his results. Dr. Caldera of Gastroenterology will evaluate the patient. 0: Upon reevaluation, the patient appeared to have improvement of his symptoms. I discussed findings with him. He verbalized agreement of the treatment plan. He was discharged home. Medical Decision Differential diagnosis: Etiologies such as appendicitis, diverticulitis, PUD, biliary pathology, UTI, pancreatitis, obstruction, mesenteric ischemia, aortic pathology, infections, inflammatory bowel disease, renal colic, as well as others were entertained. This patient was evaluated and appeared to be in some discomfort. IV access was obtained and laboratory work was drawn. Patient was placed on the robotic maintenance technician and found to be in a normal sinus rhythm. He was hydrated with normal saline solution. Laboratory work reveals an anemia which is slightly improved from previous. Patient is hyponatremic but I suspect this is secondary to poor by mouth intake. UA is negative. CT scan abdomen and pelvis reveals thickened stomach consistent with a gastritis. There is also concern over bilateral pleural effusions. It does seem to be chronic. The patient had an upper endoscopy performed approximately 6 months ago. He will be placed on Prilosec to twice a day and Zantac when necessary. He'll follow-up with gastroenterology this week for reevaluation, PCP for further management. I did explain my findings to the patient's daughter over the phone as requested. The patient will be discharged to the care of family and will return to the ER for worsening of symptoms or any medical concerns. Medication Reconcilliation Current Medication List: was personally reviewed by me Blood Pressure Screening Patient's blood pressure: Normal blood pressure Impression Primary Impression: Pleural effusion, bilateral Additional Impression: Gastritis Scribe Attestation The scribe's documentation has been prepared under my direction and personally reviewed by me in its entirety. I confirm that the note above accurately reflects all work, treatment, procedures, and medical decision making performed by me. Departure Information Dispostion Home / Self-Care Referrals Alex Marshall M.D. (PCP) Forms Call Back Authorization, HOME CARE DOCUMENTATION FORM, IMPORTANT VISIT INFORMATION Patient Instructions My [facility] Additional Instructions Diagnosis: Bilateral pleural effusions, gastritis Increase your Protonix to 40 mg twice daily. STOP ASPIRIN Follow-up with Dr. Marshall this week for reevaluation and further management of the fluid around the lungs and gastritis. Contact Dr. Caldera of gastroenterology for reevaluation. Maintain a bland diet. Avoid aspirin, ibuprofen, Aleve. Avoid alcohol, greasy and spicy foods. Drink plenty of fluids. Return to the emergency department for worsening of symptoms or any medical concerns. Problem Qualifiers
[2017-08-06] MEDS ORDERED: SODIUM CHLORIDE 0.9% 1000ML 1,000 ML IV STA (18:49)
[2017-08-06] MEDS ORDERED: OPTIRAY 320 IV PRN (19:00)
[2017-08-06] MEDS ORDERED: METO100T44 PO (19:17)
[2017-08-06] MEDS ORDERED: ATOR-26 PO (19:17)
[2017-08-06 19:34] LABS: BASO % 0.4 %; BASO ABS # 0.03 K/uL (0-0.2); EOS % 1.9 %; EOS ABS # 0.15 K/uL (0-0.5); HEMOGLOBIN 11.1 g/dL (14.0-18.0); IG# 0.01 K/uL (0.00-0.02); LYMPH ABS # 0.62 K/uL (1.2-3.4); MEAN CELL VOLUME 77.3 fL (80-100); MEAN CORPUSCULAR HEMOGLOBIN 24.5 pg (25-34); MEAN CORPUSCULAR HGB CONC 31.7 g/dl (32-36); MEAN PLATELET VOLUME 9.8 fL (7.4-10.4); MONO % 9.3 %; MONO ABS # 0.72 K/uL (0.11-0.59); NEUT % 80.3 %; NEUT ABS # 6.19 K/uL (1.4-6.5); PLATELET COUNT 336 K/uL (130-400); RED CELL DISTRIBUTION WIDTH SD 52.7 fL (36.4-46.3); WHITE BLOOD COUNT 7.72 K/uL (4.8-10.8)
[2017-08-06 19:54] LABS: ALBUMIN 2.7 gm/dl (3.4-5.0); ALT/SGPT 41 U/L (12-78); BLOOD UREA NITROGEN 14 mg/dl (7-18); CALCIUM 9.1 mg/dl (8.5-10.1); CARBON DIOXIDE 32 mmol/L (21-32); CREATININE 0.94 mg/dl (0.60-1.40); GLUCOSE 98 mg/dl (70-99); LIPASE 116 U/L (73-393); POTASSIUM 3.8 mmol/L (3.5-5.1); SODIUM 130 mmol/L (136-145)
[2017-08-06 19:57] LABS: ALKALINE PHOSPHATASE 246 U/L (45-117); AST/SGOT 36 U/L (15-37); TOTAL PROTEIN 6.9 gm/dl (6.4-8.2)
--- NOTE | 2017-08-06 22:15 | DIAGNOSTIC IMAGING REPORT ---
CT OF THE ABDOMEN AND PELVIS WITH CONTRAST CLINICAL HISTORY: Lower abdominal pain and cramping. Weight loss. COMPARISON STUDY: Chest CT September 04, 2016. TECHNIQUE: Following IV administration of 115 mL of Optiray-320, axial images of the abdomen and pelvis were obtained from the lung bases to the proximal femurs. Images were reviewed in the axial, sagittal, and coronal planes. IV contrast was administered without complication. A dose lowering technique was utilized adhering to the principles of ALARA. CT DOSE: 307.81 mGy.cm FINDINGS: Images of the lower chest partially visualize a moderate to large complex right pleural effusion with pleural thickening. There is also a small complex left pleural effusion with pleural thickening. Left lower lobe and lingular opacities favor round atelectasis. There is also significant right lower lobe opacity with volume loss. This favors atelectasis as well. The heart is moderately enlarged. There is extensive coronary artery calcification. No pneumatosis, free air or portal venous gas is present. There is fatty infiltration of the liver. Size of the spleen is at the upper limits of normal. The adrenal glands and pancreas are unremarkable. There is no biliary or pancreatic ductal dilatation. Numerous water attenuation renal lesions reflect cysts. There are multiple subcentimeter lesions which are too small to characterize. Note is made of a 3.2 cm infrarenal abdominal aortic aneurysm. A left common iliac artery aneurysm measures 2.5 cm. A right common iliac artery aneurysm measures 2.1 cm. There is no evidence for rupture. There is extensive atherosclerotic plaque. No pneumatosis, free air or portal venous gas is present. There is no lymphadenopathy. There is sigmoid diverticulosis without evidence for acute diverticulitis. Apparent diffuse gastric fold thickening is noted. The appendix is likely normal. No suspicious skeletal lesions are identified. IMPRESSION: 1. Diffuse gastric fold thickening. Although this could be due to underdistention, the findings raise the possibility of gastritis. A neoplastic etiology could appear similar. GI consultation could be obtained for consideration for upper endoscopy. 2. No bowel obstruction. 3. Partially visualized moderate to large right pleural effusion and a small left effusion. Bilateral pleural thickening. Associated pleural thickening may indicate chronic pleural effusions. However, infectious or neoplastic etiologies could result in a similar appearance. This could be correlated with right thoracentesis. Extensive associated subpleural opacities favor atelectasis. 4. Moderate cardiomegaly. 5. Sigmoid diverticulosis without evidence for acute diverticulitis. 6. 3.2 cm infrarenal abdominal aortic aneurysm and bilateral common iliac artery aneurysms, as described above. No rupture. Electronically signed by: Lonnie Almanza M.D. 08/06/2017 10:14 PM Dictated Date/Time: 08/06/2017 9:58 PM
[2017-08-06 23:20] VITALS: BP 122/77; PULSE 75; O2SAT 93
== END 2017-08-06 23:20 | disposition home or self-care (01) ==
LOC: C.EDB 16:54 → C.EDC 23:20
DX: K29.70 Gastritis, unspecified, without bleeding (principal); J90 Pleural effusion, not elsewhere classified; I50.9 Heart failure, unspecified; I25.10 Atherosclerotic heart disease of native coronary artery without angina pectoris; Z79.82 Long term (current) use of aspirin; Z79.899 Other long term (current) drug therapy

== ENCOUNTER 2017-08-18 12:50 | Inpatient (IN) | payer BC, OTHER ==
[2017-08-18] VITALS (10 sets, daily range): BP systolic 105–123; BP diastolic 48–82; PULSE 60–75; TEMP 36.2–37.1; O2SAT 92–97; BMI 24.0
[~2017-08-18] VITALS: Ht 175.3 cm; Wt 65.6 kg
[~2017-08-18 12:50] MED LIST changes: -ATOR-24 PO; +ATOR-26 PO; -CLOP1TAB15 PO; +METO100T44 PO; -METO50TA7 PO
--- NOTE | 2017-08-18 15:01 | DIAGNOSTIC IMAGING REPORT ---
SINGLE VIEW CHEST CLINICAL HISTORY: Status post thoracentesis. FINDINGS: An AP, portable, upright chest radiograph is compared to chest x-ray and chest CT dated 09/04/2016. The examination is degraded by portable technique and patient rotation. The heart is enlarged and there is atherosclerotic calcification of the thoracic area. There is pulmonary vascular congestion. There are moderate right and small left pleural effusions with bibasilar consolidation. No pneumothorax is seen. The skeletal structures are osteopenic. The bony thorax is grossly intact. IMPRESSION: 1. No pneumothorax is identified post procedure. 2. Moderate right and small left pleural effusions with associated consolidation. 3. Cardiomegaly with mild pulmonary vascular congestion. Electronically signed by: Herman Rivas M.D. 08/18/2017 3:00 PM Dictated Date/Time: 08/18/2017 2:58 PM
[2017-08-18] MEDS ORDERED: MAGNESIUM HYDROXIDE SUSP 30 ML UDC PO PRN (17:30)
[2017-08-18] MEDS ORDERED: POLYETHYLENE (MIRALAX) 17 GM PACK PO PRN (17:30)
[2017-08-18] MEDS ORDERED: PIPERACILL/TAZOBAC CONSULT ACTIVE PRN (17:30)
--- NOTE | 2017-08-18 17:40 | OPERATIVE REPORT ---
DATE OF OPERATION: 08/18/2017 PREOPERATIVE DIAGNOSIS: Complicated right pleural effusion. POSTOPERATIVE DIAGNOSIS: Probable empyema. SURGEON: Dr. Lancaster. ANESTHESIA: Local. PROCEDURE: Ultrasound-guided right diagnostic thoracentesis. SPECIFICS OF PROCEDURE: Mr. Rizo is a 71-year-old male who has lost weight, who has not felt well has had a cough productive of clear sputum but he states he has been "sick" for "a while." He has lost weight. He has right pleuritic chest pain. CT scan was obtained of his abdomen and the lower portion revealed an empyema with fluid on the right. I saw him last week and set him up for a thoracentesis diagnostically. He is scheduled to undergo an upper endoscopy who had difficulty with dysphagia. He is normally followed by Dr. Alex Marshall. On 08/18/2017, I took the patient to the medical treatment unit as an outpatient and I drained about 150 mL of a non-clotting bloody fluid. This had a pH of 7.09. I was concerned about him and he had a quite bit of pain. I believe he has a trapped lung with probably an empyema. I am going to admit him to the hospital for antibiotics and will await culture results and we get a CAT scan on him and we will have the medical service follow him. I attest to the content of the Intraoperative Record and any orders documented therein. Any exception s are noted below.
--- NOTE | 2017-08-18 17:43 | OPERATIVE REPORT ---
DATE OF OPERATION: 08/18/2017 ADDENDUM The patient arrived to the medical treatment unit. He was placed in a prone position and an ultrasound was used to find an area with a good window, a bit lateral to the posterior axillary line. The patient was prepped and draped in usual sterile fashion. After appropriate consent had been obtained and after appropriate time out have been called. A skin wheal, a 20 gauge needle, 1% Xylocaine was used as tight skin, subcutaneous tissues and a large bore needle was used to anesthetize the deeper subcutaneous tissues. He had a thickened pleura. I got some serous bloody fluid out. I then placed a wire through the needle and the needle removed. The introducer was used to enlarge this gently and then removed and then a triple lumen catheter was slid in 17 cm and drained about 150 mL of a non-clotting bloody fluid. This hurt him quite a bit. I think he may have a trapped lung. I then removed the catheter as we were getting very little fluid. I placed an antimicrobial dressing. pH was 7.09 on the fluid. I am concerned about this. I feel he may well have an empyema. We are going to admit him to the hospital. Chest x-ray is pending and appropriate labs were sent. I attest to the content of the Intraoperative Record and any orders documented therein. Any exception s are noted below.
--- NOTE | 2017-08-18 18:25 | History and Physical ---
History & Physical Date & Time of Service: Aug 18, 2017 at 17:53 Chief Complaint: Right Pleural Effusion Primary Care Physician: Alex Marshall M.D. History of Present Illness Source: patient This is a 71 yo M with PMHx of dilated cardiomyopathy with severe left ventricular dysfunction with EF equal to 45% in 08/2015, CAD s/p 3 DEZ to diagonal and distal RCA, and PDA in 03/2016, mild aortic stenosis hypertension, hyperlipidemia, elevated alkaline phosphatase, GERD, diverticulosis, depression , weight loss of 40 pounds in the past year, dysphagia, iron deficiency anemia, who presents after right thoracentesis performed by Dr. Lancaster on 08/18/17. Thoracic fluid was found to be purulent so he has been directly admitted to the hospital for IV antibiotics for empyema. The patient reports he is having increased shortness of breath over the past few weeks. He feels some pain with deep breathing currently. Patient denies any fevers chills or sweats. Patient admits to needs for sleeping on his left side and head elevated at night due to shortness of breath. Patient does not wear any supplemental O2 at baseline. He reports another large issue is inability to eat all types of food, and that specifically dry foods and test meets feel like they are stuck in his throat. The patient has no difficulty swallowing thin liquids. To his knowledge he has not completed his speech therapy evaluation or barium swallow. The patient admits to right upper quadrant abdominal pain and that it feels better whenever he lays on his left side. He does not notice that it worsened with specific types of food or depending on the timing of when he eats. The patient had a colonoscopy in December [address] Cohen, at that time a polyp was removed but was negative for any high-grade dysplasia or invasive carcinoma. Past Medical/Surgical History Medical Problems: (1) Acute exacerbation of CHF (congestive heart failure) (2) CAD (coronary artery disease) (3) CAD in [place] artery (4) Dilated cardiomyopathy (5) Dysphagia (6) Elevated alkaline phosphatase level (7) Empyema lung (8) Empyema, right (9) HLD (hyperlipidemia) (10) Hypertension (11) Hypertriglyceridemia (12) Weight loss Surgical Problems: (1) H/O heart artery stent (2) S/P right coronary artery (RCA) stent placement Family History Diabetes mellitus Heart disease Social History Smoking Status: Former Smoker Smokeless Tobacco Use: No Alcohol Use: socially Drug Use: none Marital Status: Housing status: lives alone Multi-Drug Resistant Organisms History of MDRO: No Allergies Coded Allergies: No Known Allergies (Verified , 08/18/17) Home Medications Scheduled Atorvastatin (Lipitor), 80 MG PO DAILY Benazepril (Lotensin), 20 MG PO QAM Bimatoprost (Lumigan), 1 DROPS OP HS Cholecalciferol (Vitamin D3), 2,000 UNITS PO QAM Ferrous Sulfate (Kp Ferrous Sulfate), 1 TAB PO BID Furosemide (Lasix), 40 MG PO QAM Metoprolol Succ (Toprol Xl) (Toprol-Xl ), 100 MG PO BID Multivitamin (Multivitamin), 1 TAB PO QAM Pantoprazole (Protonix), 40 MG PO QAM Senna (Senokot), 1 TAB PO QAM Sertraline (Zoloft), 1.5 TAB PO QAM Scheduled PRN Acetaminophen (Tylenol), 325 MG PO DAILY PRN for Pain or Fever Review of Systems Constitutional: No fever, sweats or chills Eyes: No diplopia, no worsening or blurred vision ENT: normal hearing, no trouble swallowing Respiratory: Increased shortness of breath, no cough no sputum,+ dyspnea on exertion Cardiovascular: No chest pain, tightness or palpitations Abdomen: +RUQ pain, weight loss of 40 pounds in 1 year, nausea, vomiting, diarrhea or constipation Musculoskeletal: No joint pain, calf pain, swelling Neurologic: No weakness, numbness/tingling, or balance problems Psychiatric: No anxiety or depression Skin: No rash or itch Physical Exam Vital Signs Date Time Temp Pulse Resp B/P (MAP) Pulse Ox O2 Delivery O2 Flow Rate FiO2 08/18/17 17:15 36.2 75 18 117/54 (75) 97 Room Air 08/18/17 16:40 36.8 66 18 118/61 (80) 92 Room Air 08/18/17 16:10 36.7 74 18 121/82 (95) 92 Room Air 08/18/17 15:40 36.6 60 20 105/52 94 Room Air 08/18/17 15:10 36.6 60 22 112/51 96 Room Air 08/18/17 14:42 37.1 65 20 123/57 95 Room Air 08/18/17 14:04 36.7 64 18 118/48 (71) 94 Room Air General: awake, alert, no apparent distress, thin Head: Normocephalic, atraumatic ENT: PERRL, EOMI, no pharyngeal exudate, mucous membranes slightly dry, and dentulous Chest: On room air, diminished breath sounds in the right field, thoracentesis insertion point free of surrounding erythema, no drainage from the site, dressing C/D/I , no adventitious breath sounds heard on the left side Cardiac: Regular rate and rhythm, systolic murmur grade II/, no JVD, normal peripheral pulses, good capillary refill Abdominal: NABS x 4 quadrants, soft, tenderness in the right upper quadrant with palpation, no rebound, guarding or tenderness Extremities: Normal inspection, no peripheral edema or erythema, calfs nontender to palpation Psych: Normal mood and affect Neuro: AAO x 3, speech is somewhat difficult to understand but at baseline per patient, follows commands appropriately, no peripheral sensory deficits Diagnostics Laboratory Results Results Past 24 Hours Test 08/18/17 00:00 08/18/17 14:25 08/18/17 17:24 Range/Units Pleural Fluid Source RIGHT LUNG Pleural Fluid Color RED Pleural Fluid Appearance BLOODY Pleural Fluid WBC 288 /uL Pleural Fluid RBC [id number] /uL Pleural Fluid Polynuclear WBCs % 10.0 % Pleural Fluid Mononuclear WBCs % 90.0 % Pleural Fluid pH 7.11 7.3-7.4 Microbiology Results 08/18/17 Blood Culture, Ordered Pending 08/18/17 Blood Culture, Ordered Pending 08/18/17 Acid Fast Stain, Received Pending 08/18/17 Mycobacterial Culture, Received Pending 08/18/17 Gram Stain - Final, Resulted 08/18/17 Bacterial Culture, Resulted Pending Impression Assessment and Plan This is a 71 yo M with PMHx of dilated cardiomyopathy with severe left ventricular dysfunction with EF equal to 45% in 08/2015, CAD s/p 3 DEZ to diagonal and distal RCA, and PDA in 03/2016, mild aortic stenosis hypertension, hyperlipidemia, elevated alkaline phosphatase, GERD, diverticulosis, depression , weight loss of 40 pounds in the past year, dysphagia, iron deficiency anemia, who presents after right thoracentesis performed by Dr. Lancaster on 1/22/18. Thoracic fluid was found to be purulent so he has been directly admitted to the hospital for IV antibiotics for empyema. Right sided empyema - Admit to [facility] for antibiotic therapy from Dr. Johnson's office - will start empirically on Zosyn - follow pleural fluid cytology and microbiology - We will check a CBC, PRP, lactic, blood cultures, and repeat chest x-ray 2 views now - Thoracic surgery consulted - Supportive therapy with pulmonary toilet, encourage ambulation and taking deep breaths Dilated cardiomyopathy with severe left ventricular dysfunction with EF equal to 45% in 08/2015, CAD s/p 3 DEZ to diagonal and distal RCA, and PDA in 03/2016 Mild aortic stenosis Hypertension Hyperlipidemia - Follows with Dr. Mata as an outpatient, last echocardiogram completed in August 2016. A repeat echo has been requested as an outpatient. At this time no need for inpatient echo but would consider this if patient status worsens or he decompensates. - Continue on [employer] meds aspirin 81 mg, metoprolol succinate 200 mg QAM (recently adjusted by cardiology), Lasix 40 mg PO, benazepril 20 mg QAM, atorvastatin 80 mg QHS Dysphagia/ weight loss Right upper quadrant pain - Check LFTs, and order an US of RUQ - Consult speech, consider a barium swallow / motility evaluation with the patient's history of weight loss of 40 pounds in 1 year and sensation of food getting stuck in throat occasionally. Will allow a heart healthy diet at this time. - Last colonoscopy was completed in December 2015 - Patient follows with Dr. cohen as an outpatient, outpatient EGD has been requested however pulmonary effusion was being taken care of prior to any procedure. Patient can continue workup as an outpatient at this time. GERD - Continue PPI Depression WALTER -Continue Zoloft 75 mg daily DVT prophylaxis: Heparin, teds, SCDs Disposition: Patient from home, PT/OT to [facility] to assist with discharge planning Level of Care Med/Surg Resuscitation Status FULL RESUSCITATION VTE Prophylaxis VTE Risk Assessment Done? Y/N: Yes Risk Level: Low Given or contraindicated: Unfractionated heparin SQ, T.E.D. Stockings, SCD's Reviewed: Pt Seen/Exam by Me History Pt does not feel SOB at present, but states that this does happen with exertion. No chest pain. Feels he tolerated thoracentesis without issue. Agree with HPI/ROS as noted by PA. General Appearance: WD/WN, no apparent distress Respiratory: no respiratory distress, decreased breath sounds (absent on the R) Cardiovascular: normal peripheral pulses, regular rate, rhythm Gastrointestinal: soft, distended, tenderness (diffuse) Extremities: non-tender, no pedal edema Neurologic/Psychiatric: alert, normal mood/affect, oriented x 3 Skin Characteristics: normal color, warm/dry Assessment/Plan Agree with plan as outlined above s/p R thoracentesis for recurrent pleural effusion, concern of chronic empyema Zosyn per Dr. Lancaster Ongoing GI work-up Speech eval ? EGD f/u
[2017-08-18 18:39] LABS: BASO % 0.4 %; BASO ABS # 0.03 K/uL (0-0.2); EOS % 2.4 %; EOS ABS # 0.19 K/uL (0-0.5); HEMATOCRIT 34.8 % (42-52); HEMOGLOBIN 10.8 g/dL (14.0-18.0); IG# 0.02 K/uL (0.00-0.02); LYMPH % 12.1 %; LYMPH ABS # 0.94 K/uL (1.2-3.4); MEAN CORPUSCULAR HEMOGLOBIN 23.9 pg (25-34); NEUT % 75.8 %; NEUT ABS # 5.88 K/uL (1.4-6.5); PLATELET COUNT 340 K/uL (130-400); RED CELL DISTRIBUTION WIDTH CV 18.8 % (11.5-14.5); RED CELL DISTRIBUTION WIDTH SD 53.2 fL (36.4-46.3); WHITE BLOOD COUNT 7.76 K/uL (4.8-10.8)
[2017-08-18] MEDS ORDERED: PIPERACILL/TAZOBAC IV 3.375 GM in DEXTROSE 5% 100ML IV ONE (19:00)
[2017-08-18 19:02] LABS: INR 1.3 (0.9-1.1); PTT PATIENT 27.3 SECONDS (21.0-31.0)
[2017-08-18 19:05] LABS: ALBUMIN 2.6 gm/dl (3.4-5.0); CALCIUM 9.2 mg/dl (8.5-10.1); CREATININE 0.77 mg/dl (0.60-1.40)
[2017-08-18 19:07] LABS: TOTAL PROTEIN 6.8 gm/dl (6.4-8.2)
--- NOTE | 2017-08-18 19:56 | DIAGNOSTIC IMAGING REPORT ---
CHEST 2 VIEWS ROUTINE CLINICAL HISTORY: assess s/p R thoracentesis pleural effusion COMPARISON STUDY: 08/18/2017 2:48 PM FINDINGS: No evidence for postprocedural pneumothorax. Loculated right basilar effusion with infiltrative change left base all are stable. No significant cardiac enlargement. IMPRESSION: Unchanged exam. No evidence pneumothorax. Unchanging right basilar loculated effusion The above report was generated using voice recognition software. It may contain grammatical, syntax or spelling errors. Electronically signed by: John Linder M.D. 08/18/2017 7:55 PM Dictated Date/Time: 08/18/2017 7:53 PM
[2017-08-18] MEDS: GUAIFENESIN 600 MG TABCR PO SCH (21:27)
[2017-08-18] MEDS: HEPARIN SOD 5000 UNIT/0.5 ML CARP SQ SCH (21:29)
--- NOTE | 2017-08-18 22:55 | DIAGNOSTIC IMAGING REPORT ---
(CHEST) THORAX WITHOUT CT DOSE: 369.74 mGycm HISTORY: Dyspnea empyema TECHNIQUE: Multiaxial CT images of the chest were performed without contrast. A dose lowering technique was utilized adhering to the principles of ALARA. COMPARISON: 09/14/2016 FINDINGS: Diminished in volume of bilateral pleural effusions compared to the prior study. Near complete resolution of the left pleural effusion with a small residual. Mild atelectatic change left lung base. Perfusion in the right contains several air pockets. This is in addition to partial right lower lobe atelectasis. A well-defined rind is not identified. Presence of the air potentially is a lateral neck although an empyema is not excluded. IMPRESSION: 1. Right pleural effusion showing partial loculation and/or internal septations 2. Several air bubbles possibly indicative of prior attempted aspiration versus possibly of a developing empyema. 3. Small left pleural effusion diminished in volume from the prior study. 4. Bibasilar compressive atelectasis. 5. Underlying emphysematous change with mild chronic interstitial prominence. The above report was generated using voice recognition software. It may contain grammatical, syntax or spelling errors. Electronically signed by: John Linder M.D. 08/18/2017 10:54 PM Dictated Date/Time: 08/18/2017 10:49 PM
[2017-08-19] MEDS: PIPERACILL/TAZOBAC IV 3.375 GM in DEXTROSE 5% 100ML 100 ML IV SCH ×3 (02:21→19:30)
[2017-08-19 04:00] VITALS: BP 127/76; PULSE 81; TEMP 36.4; O2SAT 92
[2017-08-19] MEDS: HEPARIN SOD 5000 UNIT/0.5 ML CARP SQ SCH ×3 (06:11→21:44)
[2017-08-19 07:26] VITALS: BP 131/69; PULSE 67; TEMP 36.4; O2SAT 95
--- NOTE | 2017-08-19 08:14 | Hospitalist Progress Note ---
Hospitalist Progress Note Date of Service Aug 19, 2017. Subjective Pt evaluation today including: conversation w/ patient, physical exam, chart review, lab review, review of studies Pain: None PO Intake: Fair Voiding: no voiding problems The patient was seen and examined this morning. Pt reports feeling slightly lightheaded sitting in bedside chair. He was up working with PT/OT prior to me seeing him. He has also been ambulating about the room to bathroom, etc. He has been eating ok, and drinking some fluids today. Pt was evaluated by speech therapy earlier today. He has also cut his cheek with the side of his glasses somehow, and this is bleeding during my interview with him. He denies any other acute complaints. Additional Comments: Constitutional: No fever, sweats or chills Eyes: No diplopia, no worsening or blurred vision ENT: normal hearing, no trouble swallowing Respiratory: Increased shortness of breath, no cough no sputum,+ dyspnea on exertion unchanged Cardiovascular: No chest pain, tightness or palpitations Abdomen: +RUQ pain with palpation, weight loss of 40 pounds in 1 year, nausea, vomiting, diarrhea or constipation Musculoskeletal: No joint pain, calf pain, swelling Neurologic: No weakness, numbness/tingling, or balance problems Psychiatric: No anxiety or depression Skin: No rash or itch Objective Vital Signs Date Time Temp Pulse Resp B/P (MAP) Pulse Ox O2 Delivery O2 Flow Rate FiO2 08/19/17 07:26 36.4 67 20 131/69 (89) 95 Room Air 08/19/17 07:05 Room Air 08/19/17 04:00 36.4 81 18 127/76 (93) 92 Room Air 08/18/17 23:40 Room Air 08/18/17 23:25 36.5 68 16 105/58 (74) 95 Room Air 08/18/17 20:04 36.3 72 18 123/67 (85) 94 Room Air 08/18/17 18:10 36.3 75 18 116/67 (83) 93 Room Air 08/18/17 17:15 36.2 75 18 117/54 (75) 97 Room Air 08/18/17 16:40 36.8 66 18 118/61 (80) 92 Room Air 08/18/17 16:10 Room Air 08/18/17 16:10 Room Air 08/18/17 16:10 36.7 74 18 121/82 (95) 92 Room Air 08/18/17 15:40 36.6 60 20 105/52 94 Room Air 08/18/17 15:10 36.6 60 22 112/51 96 Room Air 08/18/17 14:42 37.1 65 20 123/57 95 Room Air 08/18/17 14:04 36.7 64 18 118/48 (71) 94 Room Air Physical Exam Notes: General: awake, alert, no apparent distress, thin Head: Normocephalic, atraumatic ENT: PERRL, EOMI, no pharyngeal exudate, mucous membranes slightly dry, endentulous Chest: On room air, diminished breath sounds throughout the right field, slightly diminished breath sounds in the left base, thoracentesis insertion point free of surrounding erythema, no drainage from the site. Cardiac: Regular rate and rhythm, systolic murmur grade II/, no JVD, normal peripheral pulses, good capillary refill Abdominal: NABS x 4 quadrants, soft, tenderness RUQ with palpation, no rebound, guarding or tenderness Extremities: Normal inspection, no peripheral edema or erythema, calfs nontender to palpation Psych: Normal mood and affect Neuro: AAO x 3, speech is somewhat difficult to understand but at baseline per patient, follows commands appropriately, no peripheral sensory deficits Laboratory Results Last 24 Hours Test 08/18/17 14:25 08/18/17 18:17 08/18/17 18:23 08/19/17 04:44 Pleural Fluid pH 7.11 White Blood Count 7.76 K/uL Red Blood Count 4.52 M/uL Hemoglobin 10.8 g/dL Hematocrit 34.8 % Mean Corpuscular Volume 77.0 fL Mean Corpuscular Hemoglobin 23.9 pg Mean Corpuscular Hemoglobin Concent 31.0 g/dl Platelet Count 340 K/uL Mean Platelet Volume 10.0 fL Neutrophils (%) (Auto) 75.8 % Lymphocytes (%) (Auto) 12.1 % Monocytes (%) (Auto) 9.0 % Eosinophils (%) (Auto) 2.4 % Basophils (%) (Auto) 0.4 % Neutrophils # (Auto) 5.88 K/uL Lymphocytes # (Auto) 0.94 K/uL Monocytes # (Auto) 0.70 K/uL Eosinophils # (Auto) 0.19 K/uL Basophils # (Auto) 0.03 K/uL RDW Standard Deviation 53.2 fL RDW Coefficient of Variation 18.8 % Immature Granulocyte % (Auto) 0.3 % Immature Granulocyte # (Auto) 0.02 K/uL Sodium Level 132 mmol/L Potassium Level 4.0 mmol/L Chloride Level 96 mmol/L Carbon Dioxide Level 33 mmol/L Anion Gap 3.0 mmol/L Blood Urea Nitrogen 15 mg/dl Creatinine 0.77 mg/dl Est Creatinine Clear Calc Drug Dose 85.5 ml/min Estimated GFR () 104.3 Estimated GFR (Non- 90.0 BUN/Creatinine Ratio 19.2 Random Glucose 104 mg/dl Lactic Acid Level 1.1 mmol/L Calcium Level 9.2 mg/dl Total Bilirubin 0.4 mg/dl Direct Bilirubin 0.1 mg/dl Aspartate Amino Transf (AST/SGOT) 32 U/L Alanine Aminotransferase (ALT/SGPT) 45 U/L Alkaline Phosphatase 232 U/L Total Protein 6.8 gm/dl Albumin 2.6 gm/dl Prothrombin Time 13.9 SECONDS Prothromb Time International Ratio 1.3 Activated Partial Thromboplast Time 27.3 SECONDS Partial Thromboplastin Ratio 1.1 Assessment and Plan This is a 71 yo M with PMHx of dilated cardiomyopathy with severe left ventricular dysfunction with EF equal to 45% in 08/2015, CAD s/p 3 DEZ to diagonal and distal RCA, and PDA in 03/2016, mild aortic stenosis hypertension, hyperlipidemia, elevated alkaline phosphatase, GERD, diverticulosis, depression , weight loss of 40 pounds in the past year, dysphagia, iron deficiency anemia, who presents after right thoracentesis performed by Dr. Lancaster on 08/18/17. Thoracic fluid was found to be purulent so he has been directly admitted to the hospital for IV antibiotics for empyema. Right sided Complex empyema - Cont on Zosyn (started 08/18) - follow pleural fluid cytology and microbiology - No WBC, afebrile overnight, VSS, - Follow BCx - CXR appears unchanged compared to yesterday - Thoracic surgery consulted- planning on a pleurex catheter placement this afternoon - Supportive therapy with pulmonary toilet, encourage ambulation and taking deep breaths Chronic Systolic CHF in setting dilated cardiomyopathy with severe left ventricular dysfunction with EF equal to 45% in 08/2015, CAD s/p 3 DEZ to diagonal and distal RCA, and PDA in 03/2016 Mild aortic stenosis Hypertension Hyperlipidemia - Follows with Dr. Mata as an outpatient, last echocardiogram completed in August 2016. - Cardiology consulted - Continue on [employer] meds aspirin 81 mg, metoprolol succinate 200 mg QAM (recently adjusted by cardiology), Lasix 40 mg PO, benazepril 20 mg QAM, atorvastatin 80 mg QHS Dysphagia/ weight loss Right upper quadrant pain - Check LFTs - RUQ U/S completed showing a hypoechoic nodularity involving the fundal gallbladder suggests fundal adenomyomatosis- will need 3 month follow-up U/S , 3 mm gallbladder polyp, mild gallbladder slude, hepatic steatosis - no intervention required for findings at this time. - Consult speech, consider a barium swallow / motility evaluation with the patient's history of weight loss of 40 pounds in 1 year and sensation of food getting stuck in throat occasionally. Will allow a heart healthy diet at this time. Speech has seen the patient, awaiting formal evaluation. - Last colonoscopy was completed in December 2015 - GI consulted - Patient follows with Dr. cohen as an outpatient, outpatient EGD has been requested however pulmonary effusion was being taken care of prior to any procedure. GERD - Continue PPI Depression WALTER -Continue Zoloft 75 mg daily DVT prophylaxis: Heparin, teds, SCDs CODE STATUS: FULL Disposition: Patient from home, PT/OT to [facility] to assist with discharge planning, discharge in >2 days
--- NOTE | 2017-08-19 08:19 | DIAGNOSTIC IMAGING REPORT ---
ABDOMEN LIMITED (US) HISTORY: 71 years-old Male ruq pain acute right upper quadrant abdominal pain COMPARISON: CT 08/06/2017 TECHNIQUE: Multiple real-time sonographic images of the abdominal right upper quadrant were obtained assessing grayscale appearance and color flow FINDINGS: Pancreas appears unremarkable distal body and tail obscured by bowel gas. There is circumferential heterogeneous thickening of the gastric wall which appears similar from comparison CT dated 08/06/2017. Increased echogenicity with poor through transmission of the liver suggests fatty infiltration. Liver measures up to 13.8 cm in length. Areas of probable fatty sparing are noted adjacent to the jefry hepatis. No intrahepatic biliary ductal dilation. 0.6 cm area of decreased echogenicity of the left hepatic lobe is indeterminate and may reflect fatty sparing or possibly a hepatic cyst. 3 mm nonshadowing echogenic focus along the nondependent gallbladder wall suggest gallbladder polyps seen on image 43 without internal vascularity identified. No cholelithiasis, gallbladder wall thickening or pericholecystic fluid. Mild gallbladder sludge. There is an ill-defined hypoechoic area of nodularity involving the fundal gallbladder measuring 1.0 x 1.2 x 0.8 cm with possible internal vascularity. No ringdown artifact identified. Common bile duct is normal, 5 mm. 1.4 cm cyst of the right kidney. No right-sided hydronephrosis. Small right pleural effusion. IMPRESSION: 1. 1.2 cm area of hypoechoic nodularity involving the fundal gallbladder suggests fundal adenomyomatosis when correlated with comparison CT study 08/06/2017. A 3 month follow-up ultrasound is recommended to exclude a progressive abnormality. 2. 3 mm gallbladder polyp. 3. Mild gallbladder sludge without cholelithiasis or sonographic evidence of acute cholecystitis. 4. Hepatic steatosis with areas of probable fatty sparing adjacent to the jefry hepatis. 5. No biliary ductal dilation. 6. Small right pleural effusion. The above report was generated using voice recognition software. It may contain grammatical, syntax or spelling errors. Electronically signed by: Nikos Alexandra M.D. 08/19/2017 8:18 AM Dictated Date/Time: 08/19/2017 7:01 AM
[2017-08-19] MEDS: GUAIFENESIN 600 MG TABCR PO SCH ×2 (08:29→21:32)
[2017-08-19 09:26] LABS: BASO % 0.6 %; BASO ABS # 0.04 K/uL (0-0.2); EOS % 4.2 %; EOS ABS # 0.28 K/uL (0-0.5); HEMATOCRIT 34.7 % (42-52); HEMOGLOBIN 10.6 g/dL (14.0-18.0); IG# 0.02 K/uL (0.00-0.02); LYMPH % 13.6 %; LYMPH ABS # 0.91 K/uL (1.2-3.4); MEAN CELL VOLUME 77.5 fL (80-100); MEAN CORPUSCULAR HEMOGLOBIN 23.7 pg (25-34); MEAN CORPUSCULAR HGB CONC 30.5 g/dl (32-36); MEAN PLATELET VOLUME 10.2 fL (7.4-10.4); MONO % 7.8 %; MONO ABS # 0.52 K/uL (0.11-0.59); NEUT % 73.5 %; NEUT ABS # 4.92 K/uL (1.4-6.5); PLATELET COUNT 300 K/uL (130-400); RED CELL DISTRIBUTION WIDTH SD 53.7 fL (36.4-46.3); WHITE BLOOD COUNT 6.69 K/uL (4.8-10.8)
[2017-08-19 09:32] LABS: INR 1.3 (0.9-1.1)
--- NOTE | 2017-08-19 09:43 | SURGICAL CONSULTATION ---
DATE OF CONSULTATION: 08/19/2017 REASON FOR CONSULTATION: Possible right empyema. HISTORY OF PRESENT ILLNESS: Vasu Rizo is a 71-year-old male with multiple medical problems. I first met him in the office last week. The patient has dysphagia, significant weight loss and right-sided chest pain on his lower costal margin. I was asked to see him in the office for this and I performed a right thoracentesis yesterday as an outpatient. The fluid had a low pH of 7.09 which is quite concerning. It was a dark red, nonclotting fluid. I sent it to the lab and on Gram stain shows no organisms, but the labs could not be done because of the fluid had hemolyzed. The patient was admitted and placed on IV antibiotics. I have been asked to see him as we were only able to drain about [address] scan obtained last night shows significant amount of fluid. By ultrasound yesterday when I performed the thoracentesis, this is complex fluid. It is not going to be drained with thoracentesis. I have been asked to evaluate him for management of this complicated right pleural effusion which may well be an empyema. The patient had films dating back last year in which he had bilateral pleural effusions which were homogenous and smaller. The one on the left actually was a bit larger but this has almost resolved. The patient is on room air but is complaining of much more shortness of breath and dyspnea. PAST MEDICAL HISTORY: 1. Episodes of congestive heart failure. 2. Coronary artery disease. 3. Dilated cardiomyopathy (ejection fraction about 45%). 4. Subacute dysphasia. 5. Significant weight loss. 6. Hypertension. 7. Hyperlipidemia. 8. Bilateral pleural effusions. 9. History of significant cigarette smoking in the past. 10. Iron-deficiency anemia. PAST SURGICAL HISTORY: 1. Percutaneous transluminal angioplasty and stent. 2. Upper endoscopy with a duodenal polyp removal. 3. History of knee surgery. 4. Inguinal hernia repair. 5. Cataract extraction. MEDICATIONS: 1. Lotensin. 2. Lipitor. 3. Zoloft. 4. Senokot. 5. Protonix. 6. Toprol. 7. Multivitamins. 8. Lasix. 9. Ferrous sulfate. 10. Lumigan. 11. Vitamin D3. ALLERGIES: No known drug allergies. SOCIAL HISTORY: The patient is , lives alone. His family is supportive. He occasionally will have an alcoholic beverage. He was a heavy cigarette smoker and only quit recently. He lives alone and is usually independent with his activities of daily living. FAMILY MEDICAL HISTORY: Significant for his father dying at age 85 from "old age." There is a history of coronary artery disease as well as diabetes mellitus. REVIEW OF SYSTEMS: The patient states that he has lost 30-40 pounds in the last year. He is having difficulty swallowing. He is moving his bowels. He has had no diarrhea. He has really had no vomiting. He does have early satiety in addition to his dysphagia. The patient denies chest pain or palpitations but does indeed have dyspnea on exertion. This has worsened in the last month or so. He also complains of some right-sided chest pain and some lower neck pain when he tries to swallow. He states that he is going to "choke." He has had no productive cough. He has had no fevers. He has had no hemoptysis. The patient does have swelling in his lower legs, worse on his left than the right. He has got some breakdown of the left lower leg skin. He wears glasses but he has had no change in his visual or auditory acuity in the last 6 months. He has no real joint swelling. He denies claudication. He has had no neurologic deficits such as amaurosis fugax or transient ischemic attack. He has been depressed. PHYSICAL EXAMINATION: GENERAL: This is a 5-foot 9-inch, 165-pound white male who is awake, alert and oriented. He does wear glasses. HEENT: His extraocular movements are intact. Sclerae are pale but anicteric. He has no nasolabial flattening. Oral mucosa is a bit dry. He is edentulous. He has no leukoplakia. NECK: Supple. I detect no supraclavicular or cervical lymphadenopathy or neck vein distention. He has no axillary adenopathy. I detect no carotid bruits. LUNGS: He has decreased breath sounds in his right base. He has no overt wheezing this morning. He has a few rhonchi. HEART: He has regular rate and rhythm of his heart. ABDOMEN: Soft. I did not really detect much in the way of tenderness. EXTREMITIES: He has good femoral pulses. I can palpate dorsalis pedis pulses bilaterally. His edema is better after wearing stockings all night. DERMATOLOGIC: He does have tinea pedis in both lower legs with dry flaking white skin. He also has onychomycosis. He has got some mild erythema in both lower legs but this does not appear to be cellulitis. NEUROLOGICAL: He is awake, alert and oriented. He has no asterixis. I detect no obvious focal deficits. He is a bit difficult to understand. ASSESSMENT AND PLAN: Complicated right pleural effusion which may well be an empyema. I have discussed this case with Dr. Camargo as well as cardiology. I am going to ask cardiology and Dr. Caldera to see this patient. I plan on placing a PleurX catheter later this afternoon in his right pleural cavity. I discussed with his daughter. In addition, I would like cardiology evaluation because it is unclear to me whether this PleurX catheter is going to work. We will likely institute the MIST-2 in am. Thank you very much. LEROY
[2017-08-19 11:16] VITALS: BP 116/69; PULSE 65; TEMP 36.6; O2SAT 94
--- NOTE | 2017-08-19 11:57 | Clinical Documentation Query ---
CLINICAL DOCUMENTATION QUERY 71-y/o male with probable empyema. Per H&P and progress notes this patient has dilated cardiomyopathy with severe left ventricular dysfunction with EF equal to 45%. He does normally take Lasix at home. In your clinical opinion is this patient being managed for: (x ) Chronic systolic CHF in setting of dilated cardiomyopathy ( ) Not Agree ( ) Other explanation of clinical findings (Please Explain) ( ) Unable to determine (Please Define) ( ) Need to Discuss The medical record reflects the following clinical findings, treatment, and risk factors. Clinical Indicators: dilated cardiomyopathy with severe left ventricular dysfunction with EF equal to 45%, chronic CHF per surgery Treatment: I/O's, Risk Factors: Age, CAD, Cardiomyopathy, Please clarify and document your clinical opinion in the progress notes and discharge summary. Terms such as "probable", "suspected", "likely", "questionable", "possible", or "still to be ruled out" are acceptable. IF IN AGREEMENT, YOU MUST DOCUMENT ABOVE DIAGNOSTIC STATEMENT IN DAILY PROGRESS NOTES AND DISCHARGE SUMMARY. This document is not part of the patient's record. Thank You, Sergey Banks, DAMIÁN [phone]
[2017-08-19] MEDS ORDERED: LIDOCAINE HCL 1% 20 ML VIAL ONE (13:30)
[2017-08-19] MEDS: ONDANSETRON INJ 2 MG/ML 2 ML VIAL IV PRN ×2 (13:53→21:53)
[2017-08-19] MEDS ORDERED: MoRPHine SULFATE 2 MG/ML CARP ONE (13:56)
[2017-08-19] MEDS ORDERED: NURSING VERBAL MED ORDER ONE (14:00)
[2017-08-19] MEDS ORDERED: MoRPHine SULFATE 2 MG/ML CARP IV PRN (14:30)
--- NOTE | 2017-08-19 14:39 | DIAGNOSTIC IMAGING REPORT ---
SINGLE VIEW CHEST CLINICAL HISTORY: Status post pleural catheter placement. FINDINGS: An AP, portable, upright chest radiograph is compared to chest x-ray and chest CT dated 08/18/2017. The examination is degraded by portable technique and patient rotation. The heart is enlarged and there is atherosclerotic calcification of the thoracic aorta. There is mild pulmonary vascular congestion. Emphysema and chronic interstitial thickening are similar to previous. A moderate pleural effusion is again seen at the right lung base. A chest tube has been placed at the right lung base. There is a small left pleural effusion as well as bibasilar consolidation. No pneumothorax is seen. The skeletal structures are osteopenic. The bony thorax is grossly intact. IMPRESSION: 1. Cardiomegaly and emphysema. Mild pulmonary vascular congestion is suspected. 2. A pleural drain is present at the right lung base. No pneumothorax is seen post procedure. 3. Moderate right and small left pleural effusions with bibasilar consolidation. Electronically signed by: Herman Rivas M.D. 08/19/2017 2:37 PM Dictated Date/Time: 08/19/2017 2:35 PM
--- NOTE | 2017-08-19 14:57 | GASTROINTESTINAL CONSULTATION ---
DATE OF CONSULTATION: 08/19/2017 NOTICE TO RECEIVING CONSTITUTION PARTY/AGENCY This information is strictly Confidential and protected under [place] law. [place] law prohibits you from making any further disclosure of this information unless further disclosure is expressly permitted by the written consent of the person to whom it pertains or is authorized by law. A general authorization for the release of medical or other information is not sufficient for this purpose. Hospital accepts no responsibility if the information is made available to any other person, INCLUDING THE PATIENT. REASON FOR CONSULTATION: Abnormal stomach on CT scan and difficulty swallowing. HISTORY OF PRESENT ILLNESS: The patient is a 71-year-old who over the last month has developed increasing shortness of breath and difficulty swallowing solid foods. The patient was found to have bilateral pleural effusions, right greater than left and had a thoracentesis performed to improve his breathing. CT scan of the chest was performed and was carried into the upper abdomen which showed a diffusely thickened stomach. He did have an EGD [address] Caldera and no obvious gastric lesions were found. In December of 2016 he had a colonoscopy by Dr. Caldera and had a benign polyp removed. He reports that he has lost about 40 pounds in the last year. GI consultation has been requested to evaluate the abnormal stomach. PAST MEDICAL HISTORY: Remarkable for coronary artery disease with cardiomyopathy. He has had aortic stenosis, hyperlipidemia, elevated alkaline phosphatase, diverticulosis, depression, iron deficiency anemia and has had coronary stents placed in the past. FAMILY HISTORY: Positive for diabetes, heart disease. SOCIAL HISTORY: The patient is , lives alone, former smoker. Uses alcohol socially. MEDICATIONS: Per list. ALLERGIES: None. REVIEW OF SYSTEMS: Positive for some shortness of breath, epigastric pain and weight loss. Remainder is negative. PHYSICAL EXAMINATION: GENERAL: The patient has somewhat of a speech impediment. VITAL SIGNS: Blood pressure is 117/54, pulse 75, room air saturations 97%. ABDOMEN: Shows some tenderness in the epigastric area. CHEST: Shows a pleural catheter in the right axillary line. IMPRESSION: The patient has a diffusely thickened stomach on CT scan with weight loss and difficulty swallowing. I plan on scheduling the patient for an EGD tomorrow afternoon with probable biopsies of the stomach and possible esophagus and maybe duodenum as well.
[2017-08-19 15:16] VITALS: BP 105/63; PULSE 74; TEMP 36.6; O2SAT 90
[2017-08-19 15:53] LABS: PLEURAL FLUID TOTAL PROTEIN 2.9 g/dl
--- NOTE | 2017-08-19 16:14 | CARDIOLOGY CONSULTATION ---
DATE OF CONSULTATION: 08/19/2017 DATE OF CONSULTATION: 08/19/2017 REASON FOR CONSULTATION: Ischemic cardiomyopathy, coronary artery disease, preoperative management. CONSULTATION REQUESTED BY: Dr. Lancaster. HISTORY OF PRESENT ILLNESS: Mr. Rizo is a 71-year-old man known to me from the outpatient setting with a history of coronary artery disease status post multivessel stenting, ischemic cardiomyopathy, moderate to severe aortic stenosis who was admitted in the setting of unintentional weight loss, dysphasia as well as right pleural effusion with pleural fluid findings concerning for possible empyema. The patient was last seen in cardiology clinic in May 2017 at which time the patient was well compensated on daily 40 mg of Lasix. Since that time, approximately 1 month ago began developing worsening abdominal pain with associated dysphagia. The patient states more than 30 pound weight loss over the last several months. He presented to the Emergency Department on 08/06/2017 where he had an abdominal CT scan which showed a right large pleural effusion. He was referred to Dr. Lancaster who did an outpatient thoracentesis yesterday with removal of ascitic bloody fluid. He later underwent a repeat CT scan which showed loculations and findings concerning for empyema. The patient was admitted for IV antibiotics and has planned to undergo possible PleurX catheter placement. In addition, he is to be evaluated by GI for his dysphagia and abdominal pain. Most recent EGD colonoscopy was completed in August of 2016 during an admission for heart failure where he subsequently developed a GI bleed. PAST MEDICAL HISTORY: 1. Multivessel coronary artery disease status post drug-eluting stents to his diagonal and distal RCA/PDA in March 2016. 2. Ischemic cardiomyopathy, EF 35-40% on most recent echo. 3. Moderate to severe aortic stenosis. 4. Hypertension. 5. Chronic systolic heart failure. 6. Peripheral arterial disease with mild insufficiency by ABIs on the right. 7. Chronic venous insufficiency. 8. Dysphasia. 9. Unintentional weight loss. 10. Anemia. FAMILY HISTORY: Family history of diabetes and heart disease, although no premature coronary artery disease. SOCIAL HISTORY: He lives by himself. He is . He is a former smoker. Children live in the area. Denies any significant alcohol or illicit drugs. HOME MEDICATIONS: Include aspirin 81, atorvastatin 80, benazepril 20, iron sulfate, furosemide 40, Lumigan eyedrops, metoprolol succinate 100 mg daily, multivitamins, Protonix, senna, sertraline, Tylenol, vitamin D3. ALLERGIES: No known drug allergies. REVIEW OF SYSTEMS: Ten point review of systems completed and otherwise negative unless stated in HPI. PHYSICAL EXAMINATION: VITAL SIGNS: Temperature 36.3, pulse 65, blood pressure 116/69, satting 94% on room air. GENERAL: The patient appears frail, thin, but in no acute distress. HEAD, EYES, EARS, NOSE, AND THROAT: His sclerae are anicteric. His oropharynx is clear. His mucous membranes are moist. NECK: Supple. He has no jugular venous distention. LUNGS: He has decreased breath sounds bilaterally, particularly at the right base with dullness to percussion at the right base and no surrounding erythema over the prior thoracentesis site. CARDIAC EXAMINATION: Regular with occasional premature beats. There is a 3/6 systolic ejection murmur heard best at the left upper sternal border. ABDOMEN: Soft and there is diffuse tenderness with positive bowel sounds. EXTREMITIES: Warm. There is no significant lower extremity edema. He does have signs of chronic venous insufficiency with telangiectasias/reticular veins distally, has intact distal pulses. NEUROLOGIC: Nonfocal. Insight is alert and appropriate. LABORATORY DATA: White blood cell count 6.7, hemoglobin 10.6, platelets of 300. INR 1.3. Sodium 132, potassium of 4.0, BUN 15, creatinine 0.7. LFTs were within normal limits except for an elevated alkaline phosphatase at 232 and a low albumin at 2.6. Pleural fluid remarkable for elevated red blood cell count at 424,000 and a pH of 7.11. CT scan of the chest showed a right pleural effusion showing partial loculation and several air bubbles potentially indicative of empyema. There was a small left pleural effusion and chronic emphysematous changes. Abdominal CT showed nodularity involving the gallbladder. There was a gallbladder polyp and mild sludge as well as hepatic steatosis. Echocardiogram from the outpatient setting last week reviewed. This study showed severely dilated LV with an LVEF 35-40%. There was akinesis of the inferolateral wall, basal to mid lateral wall and moderate akinesis of the inferior wall. There is normal RV size and function. There was moderate to severe aortic stenosis, mild to moderate mitral regurgitation. Normal estimated CVP. Recent CT scan of the abdomen and pelvis remarkable for diffuse gastric fold thickening. There is also a 3.2 infrarenal abdominal aortic aneurysm with bilateral common iliac aneurysms 2.1 on the right, 2.5 on the left. EKG showed sinus rhythm with occasional PACs, suggestion of LVH and T-wave inversions inferolaterally potentially consistent with ischemia versus repolarization abnormality. IMPRESSION AND PLAN: 1. Right pleural effusion and suspected empyema. 2. Unintentional weight loss with dysphagia. 3. Ischemic cardiomyopathy. 4. Coronary artery disease status post multivessel percutaneous coronary intervention. 5. Moderate to severe aortic stenosis. 6. Chronic systolic heart failure. 7. Anemia. 8. Abdominal aortic aneurysm with iliac aneurysms and mild arterial insufficiency suggestive of distal peripheral arterial disease. Mr. Rizo is here with new right pleural effusion with fluid findings and radiographic findings concerning for possible empyema. He is being treated with broad spectrum antibiotics and there is plan for possible PleurX catheter in the next day or two. From a cardiac standpoint, things appear to be stable. He denies any recurrent chest pain. On exam today, he appears well perfused without any significant systemic venous congestion. Patient is free from active cardiac conditions including active ischemia, uncontrolled arrhythmias or acute heart failure. In that setting, feel we can proceed with planned PleurX catheter, drainage of empyema. In the perioperative setting his current blood pressure medicines are being held, which I agree with. When blood pressure is stable, would plan to restart home blood pressure agents starting with metoprolol. Otherwise, resume aspirin when able, statin pending stable LFTs. We will continue to follow while in the hospital. LEROY
[2017-08-19 23:40] VITALS: BP 104/61; PULSE 84; TEMP 36.8; O2SAT 79
[2017-08-19 23:45] VITALS: O2SAT 93
[2017-08-20] VITALS (8 sets, daily range): BP systolic 81–136; BP diastolic 52–70; PULSE 79–98; TEMP 36.3–36.9; O2SAT 91–100; Ht 175.3 cm; Wt 65.6 kg
[2017-08-20] MEDS: TRAMADOL HCL 50 MG TAB PO PRN
[2017-08-20] MEDS: hydrOXYzine HCL 25 MG TAB PO PRN (00:40)
[2017-08-20] MEDS: PIPERACILL/TAZOBAC IV 3.375 GM in DEXTROSE 5% 100ML 100 ML IV SCH ×3 (01:22→19:09)
[2017-08-20] MEDS: HEPARIN SOD 5000 UNIT/0.5 ML CARP SQ SCH ×3 (05:24→21:45)
--- NOTE | 2017-08-20 07:33 | DIAGNOSTIC IMAGING REPORT ---
CHEST ONE VIEW PORTABLE HISTORY: 71 years-old Male right pleural effusion follow-up study in a patient with right-sided pleural effusion COMPARISON: Chest radiograph 08/19/2017 TECHNIQUE: Portable AP view of the chest FINDINGS: Cardiac silhouette is again enlarged, unchanged. Atherosclerosis of the aorta. No pneumothorax identified. Moderate right and small left pleural effusions. Unchanged with bibasilar consolidation, right greater than left. Right-sided pleural drainage catheter is unchanged. Mild pulmonary vascular congestion. The bones appear grossly intact. IMPRESSION: 1. Stable exam with moderate right and small left pleural effusions with unchanged positioning of the right-sided pleural drainage catheter. 2. Bibasilar consolidative opacities, right greater than left. 3. Cardiomegaly with mild pulmonary vascular congestion. The above report was generated using voice recognition software. It may contain grammatical, syntax or spelling errors. Electronically signed by: Nikos Alexandra M.D. 08/20/2017 7:32 AM Dictated Date/Time: 08/20/2017 7:30 AM
--- NOTE | 2017-08-20 07:43 | SURGERY PROGRESS NOTE ---
DATE: 08/20/2017 Mr. Rizo was seen today. I placed a PleurX catheter in him yesterday. He drained 250 mL last night. His chest x-ray looks a little bit better, but he has got loculated effusion. In all likelihood, this has a rind around it and is not going to respond to simple drainage. We are going to institute the MIST-2 protocol in an attempt to break up loculations. I will start this after his upper endoscopy today. The pleural fluid analysis has been hampered by the fact that there has been hemolysis. I do not really know how to explain that unless this is old blood and it does not appear to be. The glucose was low at 47. On 2 separate Gram stains, we see no organisms; however, it is acidotic. The LDH is not back because of the hemolysis and it has been sent out to an outside lab and we may not get any answer from that. I reviewed the patient's history and CT scan with Dr. Cummins yesterday. The stomach is markedly thickened. The patient have an upper endoscopy today with biopsy. I will start his MIST-2 later today.
[2017-08-20] MEDS ORDERED: NURSING VERBAL MED ORDER ONE ×4 (08:15→19:45)
[2017-08-20] MEDS ORDERED: MoRPHine SULFATE 2 MG/ML CARP IV SCH ×2 (08:30→18:30)
[2017-08-20 08:48] LABS: BASO % 0.6 %; BASO ABS # 0.04 K/uL (0-0.2); EOS % 2.8 %; EOS ABS # 0.19 K/uL (0-0.5); HEMATOCRIT 33.9 % (42-52); HEMOGLOBIN 10.3 g/dL (14.0-18.0); IG# 0.02 K/uL (0.00-0.02); LYMPH % 14.7 %; LYMPH ABS # 0.99 K/uL (1.2-3.4); MEAN CELL VOLUME 78.7 fL (80-100); MEAN CORPUSCULAR HEMOGLOBIN 23.9 pg (25-34); MEAN CORPUSCULAR HGB CONC 30.4 g/dl (32-36); MEAN PLATELET VOLUME 10.1 fL (7.4-10.4); MONO % 9.5 %; MONO ABS # 0.64 K/uL (0.11-0.59); NEUT % 72.1 %; NEUT ABS # 4.85 K/uL (1.4-6.5); PLATELET COUNT 302 K/uL (130-400); RED CELL DISTRIBUTION WIDTH SD 54.9 fL (36.4-46.3); WHITE BLOOD COUNT 6.73 K/uL (4.8-10.8)
[2017-08-20 08:55] LABS: INR 1.3 (0.9-1.1)
[2017-08-20] MEDS: GUAIFENESIN 600 MG TABCR PO SCH ×2 (09:15→21:42)
--- NOTE | 2017-08-20 11:06 | Hospitalist Progress Note ---
Hospitalist Progress Note Date of Service Aug 20, 2017. Subjective Pt evaluation today including: conversation w/ patient, physical exam, chart review, lab review, review of studies PO Intake: NPO for EGD today Voiding: no voiding problems The patient was seen and examined this morning. Pt reports doing ok. He had pleurex catheter placed last evening and reports it was initially painful, but seems to be improving at this this point. His breathing is slightly easier today compared to previously, and reports not feeling as SOB with minimal exertion. He is still having RUQ pain with palpation. He is currently NPO for a scheduled EGD with Dr. Cohen later today. ROS: 6 point ROS reviewed and otherwise negative. Objective Vital Signs Date Time Temp Pulse Resp B/P (MAP) Pulse Ox O2 Delivery O2 Flow Rate FiO2 08/20/17 07:30 Nasal Cannula 2.0 08/20/17 07:22 36.6 79 20 136/70 (92) 98 Room Air 08/20/17 03:53 36.6 83 18 119/65 (83) 100 Nasal Cannula 2.0 08/19/17 23:55 Nasal Cannula 2.0 08/19/17 23:45 93 Nasal Cannula 2.0 08/19/17 23:40 36.8 84 20 104/61 (75) 79 Room Air 08/19/17 15:35 Room Air 08/19/17 15:16 36.6 74 16 105/63 (77) 90 Room Air 08/19/17 11:16 36.6 65 18 116/69 (85) 94 Room Air Physical Exam Notes: General: awake, alert, no apparent distress, thin Head: Normocephalic, atraumatic ENT: PERRL, EOMI, no pharyngeal exudate, mucous membranes slightly dry, endentulous Chest: On room air, diminished breath sounds throughout the right field, slightly diminished breath sounds in the left base, pleurex catheter in RLL, no drainage from the site. Cardiac: Regular rate and rhythm, systolic murmur grade II/, no JVD, normal peripheral pulses, good capillary refill Abdominal: NABS x 4 quadrants, soft, tenderness RUQ with palpation, no rebound, guarding or tenderness Extremities: Normal inspection, no peripheral edema or erythema, calfs nontender to palpation Psych: Normal mood and affect Neuro: AAO x 3, speech is somewhat difficult to understand but at baseline per patient, follows commands appropriately, no peripheral sensory deficits Laboratory Results Last 24 Hours Test 08/20/17 07:44 White Blood Count 6.73 K/uL Red Blood Count 4.31 M/uL Hemoglobin 10.3 g/dL Hematocrit 33.9 % Mean Corpuscular Volume 78.7 fL Mean Corpuscular Hemoglobin 23.9 pg Mean Corpuscular Hemoglobin Concent 30.4 g/dl Platelet Count 302 K/uL Mean Platelet Volume 10.1 fL Neutrophils (%) (Auto) 72.1 % Lymphocytes (%) (Auto) 14.7 % Monocytes (%) (Auto) 9.5 % Eosinophils (%) (Auto) 2.8 % Basophils (%) (Auto) 0.6 % Neutrophils # (Auto) 4.85 K/uL Lymphocytes # (Auto) 0.99 K/uL Monocytes # (Auto) 0.64 K/uL Eosinophils # (Auto) 0.19 K/uL Basophils # (Auto) 0.04 K/uL RDW Standard Deviation 54.9 fL RDW Coefficient of Variation 19.0 % Immature Granulocyte % (Auto) 0.3 % Immature Granulocyte # (Auto) 0.02 K/uL Prothrombin Time 13.7 SECONDS Prothromb Time International Ratio 1.3 Assessment and Plan This is a 71 yo M with PMHx of dilated cardiomyopathy with severe left ventricular dysfunction with EF equal to 45% in 08/2015, CAD s/p 3 DEZ to diagonal and distal RCA, and PDA in 03/2016, mild aortic stenosis hypertension, hyperlipidemia, elevated alkaline phosphatase, GERD, diverticulosis, depression , weight loss of 40 pounds in the past year, dysphagia, iron deficiency anemia, who presents after right thoracentesis performed by Dr. Lancaster on 08/18/17. Thoracic fluid was found to be purulent so he has been directly admitted to the hospital for IV antibiotics for empyema. Right sided Complex empyema - Cont on Zosyn (started 08/18) - follow pleural fluid cytology and microbiology - No WBC, afebrile overnight, VSS, - Follow BCx - NGTD - CXR appears unchanged compared to yesterday - Thoracic surgery consulted- pleurex cath in place, drained 250 mL today - Supportive therapy with pulmonary toilet, encourage ambulation and taking deep breaths Chronic Systolic CHF in setting dilated cardiomyopathy with severe left ventricular dysfunction with EF equal to 45% in 08/2015, CAD s/p 3 DEZ to diagonal and distal RCA, and PDA in 03/2016 Mild aortic stenosis Hypertension Hyperlipidemia - Follows with Dr. Mata as an outpatient, last echocardiogram completed in August 2016. - Cardiology consulted - Home meds held in the setting of endoscopy today - will resume per cardiology recs afterwards [employer]ATOR meds: aspirin 81 mg, metoprolol succinate 200 mg QAM (recently adjusted by cardiology), Lasix 40 mg PO, benazepril 20 mg QAM, atorvastatin 80 mg QHS Dysphagia/ weight loss Right upper quadrant pain - RUQ U/S completed showing a hypoechoic nodularity involving the fundal gallbladder suggests fundal adenomyomatosis- will need 3 month follow-up U/S , 3 mm gallbladder polyp, mild gallbladder slude, hepatic steatosis - no intervention required for findings at this time. - Consult speech, consider a barium swallow / motility evaluation with the patient's history of weight loss of 40 pounds in 1 year and sensation of food getting stuck in throat occasionally. Will allow a moist heart healthy diet at this time - soft vegetables, general aspiration precautions; straws okay - GI consulted - Patient follows with Dr. cohen as an outpatient, inpatient EGD today - Last colonoscopy was completed in December 2015 GERD - Continue PPI Depression WALTER -Continue Zoloft 75 mg daily DVT prophylaxis: Heparin, teds, SCDs CODE STATUS: FULL Disposition: Patient from home, PT/OT to [facility] to assist with discharge planning, discharge in >2 days
[2017-08-20] MEDS ORDERED: ALTEPLASE, RECOMBINANT 10 MG in SYRINGE 50 ML IPL SCH (13:12)
[2017-08-20] MEDS ORDERED: DORNASE ALFA 5 ML in SYRINGE 25 ML IPL SCH ×2 (13:15→18:00)
--- NOTE | 2017-08-20 15:12 | Endo History and Physical ---
History & Physical Date of Service: Aug 20, 2017. Chief Complaint: Abnl CT of stomach Referring Physician: lAex Marshall History of Present Illness For EGD Past Surgical History Hx Cardiac Surgery: No Hx Internal Defibrillator: No Hx Pacemaker: No Hx Abdominal Surgery: No Hx Post-Op Nausea and Vomiting: No Hx Cancer Surgery: No Hx Thoracic Surgery: No Hx Orthopedic: Yes (LEFT KNEE SURGERY (PER PT)) Hx Urinary Tract Surgery: No Social History Smoking Status: Former Smoker Smokeless Tobacco Use: No Hx Substance Use: No Hx Alcohol Use: No Allergies Coded Allergies: No Known Allergies (Verified , 08/20/17) Current Medications Reported Home Medications Medications Dose Route/Sig Max Daily Dose Days Date Category Toprol-Xl (Metoprolol Succinate) 100 Mg Tabcr 100 Mg PO BID 08/06/17 Reported Lipitor (Atorvastatin Calcium) 80 Mg Tab 80 Mg PO DAILY 08/06/17 Reported Multivitamin (Multivitamins) Tab 1 Tab PO QAM 01/21/17 Reported Lotensin (Benazepril HCl) 20 Mg Tab 20 Mg PO QAM 01/21/17 Reported Vitamin D3 (Cholecalciferol) 1,000 Inter.unit Tab 2,000 Units PO QAM 01/21/17 Reported Protonix (Pantoprazole Sodium) 40 Mg Tab 40 Mg PO QAM 01/21/17 Reported Lasix (Furosemide) 40 Mg Tab 40 Mg PO QAM 01/21/17 Reported Kp Ferrous Sulfate (Ferrous Sulfate) 325 Mg Tab 1 Tab PO BID 01/21/17 Reported Senokot (Senna) 8.6 Mg Tab 1 Tab PO QAM 01/21/17 Reported Tylenol (Acetaminophen) 325 Mg Tab 325 Mg PO DAILY PRN 04/19/16 Reported Zoloft (Sertraline HCl) 50 Mg Tab 1.5 Tab PO QAM 30 03/29/16 Reported Lumigan (Bimatoprost) 0.01 % Taniya 1 Drops OP HS 90 03/29/16 Reported Vital Signs Weight (Kilograms): 75.000 Height (Feet): 5 Height (Inches): 9 Date Time Temp Pulse Resp B/P (MAP) Pulse Ox O2 Delivery O2 Flow Rate FiO2 08/20/17 14:46 36.6 77 24 105/61 (76) 94 Nasal Cannula 2 08/20/17 07:30 Nasal Cannula 2.0 08/20/17 07:22 36.6 79 20 136/70 (92) 98 Room Air 08/20/17 03:53 36.6 83 18 119/65 (83) 100 Nasal Cannula 2.0 08/19/17 23:55 Nasal Cannula 2.0 08/19/17 23:45 93 Nasal Cannula 2.0 08/19/17 23:40 36.8 84 20 104/61 (75) 79 Room Air 08/19/17 15:35 Room Air 08/19/17 15:16 36.6 74 16 105/63 (77) 90 Room Air Physical Exam General Appearance: WD/WN Respiratory/Chest: Respiratory effort: pertinent finding (Right chest tube) Cardiovascular: Heart Auscultation: RRR Assessment and Plan Abnl CT for EGD
--- NOTE | 2017-08-20 15:32 | Discharge Instructions ---
Endoscopy Patient Instructions Date / Procedure(s) Performed Aug 20, 2017. EGD Allergy Information Coded Allergies: No Known Allergies (Verified , 08/20/17) Discharge Date / Findings Aug 20, 2017. Prominent gastric folds Medication Instructions Restart Stopped Medication(s): resume meds Current Inpatient Medications Medications (Trade) Dose Ordered Sig/Kaitlynn Route Start Time Stop Time Status Last Admin Dose Admin Heparin Sodium (Porcine) (Heparin Sq 5000 Unit/0.5ml) 5,000 unit Q8H SQ 08/18/17 22:00 09/17/17 21:59 08/20/17 05:24 5,000 UNIT Acetaminophen (Tylenol Tab) 650 mg Q4H PRN PO 08/18/17 17:30 09/17/17 17:29 Magnesium Hydroxide (Milk Of Magnesia Susp) 30 ml Q6H PRN PO 08/18/17 17:30 09/17/17 17:29 Polyethylene (Miralax Powder Packet) 17 gm DAILY PRN PO 08/18/17 17:30 09/17/17 17:29 Ondansetron HCl (Zofran Inj) 4 mg Q6H PRN IV 08/18/17 17:30 09/17/17 17:29 08/19/17 21:53 4 MG Piperacillin Sod/ Tazobactam Sod 3.375 gm/Dextrose 115 ml @ 28.75 mls/ hr Q8H IV 08/19/17 02:00 08/26/17 01:59 08/20/17 11:03 28.75 MLS/HR Miscellaneous Information (Consult) 1 ea UD PRN N/A 08/18/17 17:30 09/17/17 17:29 Guaifenesin (Mucinex Contr Rel Tab) 600 mg Q12 PO 08/18/17 21:00 09/17/17 20:59 08/20/17 09:15 600 MG Tramadol HCl (Ultram Tab) 50 mg Q4H PRN PO 08/19/17 14:30 09/18/17 14:29 08/20/17 00:00 50 MG Hydroxyzine HCl (Vistaril Tab) 25 mg HS PRN PO 08/20/17 00:30 09/19/17 00:29 08/20/17 00:40 25 MG Morphine Sulfate (MoRPHine SULFATE INJ) 1 mg BID@0830,2030 IV 08/20/17 08:30 09/03/17 08:29 08/20/17 08:49 1 MG Alteplase, Recombinant (Activase Cathflo) 10 mg Q12H IPL 08/20/17 18:00 08/23/17 06:01 Dornase Alonso 5 ml/ Syringe 30 ml @ 0 mls/hr Q12H IPL 08/20/17 18:00 08/23/17 06:01 Provider Instructions Activity Restrictions - No exercising or heavy lifting for 24 hours. - Do not drink alcohol the day of the procedure. - Do not drive a car or operate machinery until the day after the procedure. - Do not make any important decisions or sign important papers in 24 hours after the procedure. Following Day: - Return to full activity which may include returning to work/school. Diet Start your diet with liquids and light foods (jello, soup, juice, toast). Then eat your usual diet if not nauseated. Treatment For Common After Affects For mild abdominal pain, bloating, or excessive gas: - Rest - Eat lightly - Lie on right side Follow-Up Information Follow-up with as scheduled Anesthesia Information What You Should Know You have had a procedure that required some medicine to reduce anxiety and discomfort. This treatment is called moderate sedation. After receiving the treatment, you may be sleepy, but you will be able to breathe on your own. The effects of the treatment may last for several hours. Follow these instructions along with Activity/Diet recommendations noted above: * Do NOT do anything where dizziness or clumsiness would be dangerous. * Rest quietly at home today, then you can be up and about tomorrow. * Have a responsible person stay with you the rest of today. * You may have had an I.V. today. If so, you may take the dressing off later today. Recommendations Call your doctor if: * Trouble breathing * Continuous vomiting for more than 24 hours * Temperature above 101 degrees * Severe abdominal pain or bloating * Pain not relieved by pain medicine ordered * There is increased drainage or redness from any incision * A large amount of rectal bleeding greater than 2-3 tablespoons. (If you had a polyp/s removed or have hemorrhoids, a small amount of blood - from the rectum is to be expected.) * You have any unanswered questions or concerns. IN THE EVENT OF A SERIOUS EMERGENCY, GO TO THE NEAREST EMERGENCY ROOM Your discharge instructions were prepared by provider Migel Cummins. Patient Instructions Signature Page Ajithjesi Rizo Patient (or Guardian) Signature/Date: I have read and understand the instructions given to me by my caregivers. Caregiver/RN/Doctor Signature/Date: The above-named patient and/or guardian has received patient instructions on this date. + Original Patient Signature Page (only) stays with chart. Please make copy for patient.
--- NOTE | 2017-08-20 15:37 | GI REPORT ---
Procedure Date: 08/20/2017 3:05 PM Procedure: Upper GI endoscopy Indications: Abnormal CT of the GI tract Medicines: Propofol total dose 120 mg IV, Lidocaine 40 mg IV, Neosynephrine 400 mcg IV Complications: No immediate complications. Estimated Blood Loss: Estimated blood loss was minimal. Procedure: Pre-Anesthesia Assessment: - Prior to the procedure, a History and Physical was performed, and patient medications, allergies and sensitivities were reviewed. The patient's tolerance of previous anesthesia was reviewed. - The risks and benefits of the procedure and the sedation options and risks were discussed with the patient. All questions were answered and informed consent was obtained. After obtaining informed consent, the endoscope was passed under direct vision. Throughout the procedure, the patient's blood pressure, pulse, and oxygen saturations were monitored continuously. The scope was introduced through the mouth, and advanced to the second part of duodenum. The upper GI endoscopy was accomplished without difficulty. The patient tolerated the procedure well. Findings: The examined esophagus was normal. The Z-line was regular and was found 45 cm from the incisors. Diffuse mild mucosal variance characterized by thickened was found in the gastric body. Biopsies were taken with a cold forceps for histology. Estimated blood loss was minimal. The second portion of the duodenum was normal. Biopsies were taken with a cold forceps for histology. Estimated blood loss was minimal. Impression: - Normal esophagus. - Z-line regular, 45 cm from the incisors. - Gastric mucosal variant. Biopsied. - Normal second portion of the duodenum. Biopsied. Recommendation: - Return patient to [facility] for ongoing care. - Await pathology results. Migel Cummins M.D. Migel Cummins MD 08/20/2017 3:36:52 PM This report has been signed electronically. Note Initiated On: 08/20/2017 3:05 PM I attest to the content of the Intraoperative Record and orders documented therein, exceptions below
[2017-08-20] MEDS ORDERED: PROPOFOL IV EMULSION 10 MG/ML 20 ML VIAL IV ONE (15:38)
[2017-08-20] MEDS ORDERED: PHENYLEPHRINE 100MCG/ML 5ML SYR ONE (15:38)
[2017-08-20] MEDS ORDERED: LIDOCAINE HCL 2% 2 ML VIAL (20MG/ML) ONE (15:38)
--- NOTE | 2017-08-20 16:05 | Anesthesiology Progress Note ---
Anesthesia Post Op Note Date & Time Aug 20, 2017 at 16:04 Vital Signs Pain Intensity: 0 Vital Signs Past 12 Hours Date Time Temp Pulse Resp B/P (MAP) Pulse Ox O2 Delivery O2 Flow Rate FiO2 08/20/17 15:50 88 16 88/65 (73) 97 08/20/17 15:35 90 16 99/55 (70) 99 08/20/17 14:46 36.6 77 24 105/61 (76) 94 Nasal Cannula 2 08/20/17 07:30 Nasal Cannula 2.0 08/20/17 07:22 36.6 79 20 136/70 (92) 98 Room Air Notes Mental Status: alert / awake / arousable, participated in evaluation Pt Amnestic to Procedure: Yes Nausea / Vomiting: adequately controlled Pain: adequately controlled Airway Patency, RR, SpO2: stable & adequate BP & HR: stable & adequate Hydration State: stable & adequate Anesthetic Complications: no major complications apparent
--- NOTE | 2017-08-20 16:39 | PROGRESS NOTE ---
DATE: 08/19/2017 The patient underwent an EGD today for thickening on the stomach seen on CT scan. The EGD showed prominent gastric folds, but nothing that appeared necessarily pathologic. Random gastric biopsies were performed as well as biopsies of the second portion of the duodenum which also appeared normal. There were no lesions seen in the esophagus. IMPRESSION: The patient has mildly prominent gastric folds, but nothing that appeared necessarily pathologic. Biopsies of the stomach and duodenum were performed and are pending at this time.
[2017-08-20] MEDS ORDERED: ALTEPLASE, RECOMBINANT 1 MG/ML 2 ML VIAL IPL SCH (18:00)
[2017-08-21] MEDS: PIPERACILL/TAZOBAC IV 3.375 GM in DEXTROSE 5% 100ML 100 ML IV SCH ×3 (02:12→18:04)
[2017-08-21 02:52] VITALS: BP 116/56; PULSE 84; TEMP 36.8; O2SAT 100
[2017-08-21] MEDS: MoRPHine SULFATE 2 MG/ML CARP IV SCH ×6 (05:28→21:29)
[2017-08-21] MEDS: ALTEPLASE, RECOMBINANT 1 MG/ML 2 ML VIAL IPL SCH ×2 (05:55→17:38)
[2017-08-21] MEDS: HEPARIN SOD 5000 UNIT/0.5 ML CARP SQ SCH ×3 (06:26→22:00)
[2017-08-21 06:52] LABS: BASO % 0.5 %; BASO ABS # 0.03 K/uL (0-0.2); EOS % 4.9 %; EOS ABS # 0.28 K/uL (0-0.5); HEMATOCRIT 33.4 % (42-52); HEMOGLOBIN 9.9 g/dL (14.0-18.0); IG# 0.01 K/uL (0.00-0.02); LYMPH % 12.3 %; MEAN CELL VOLUME 80.1 fL (80-100); MEAN CORPUSCULAR HEMOGLOBIN 23.7 pg (25-34); MEAN CORPUSCULAR HGB CONC 29.6 g/dl (32-36); MEAN PLATELET VOLUME 9.2 fL (7.4-10.4); MONO % 9.3 %; MONO ABS # 0.53 K/uL (0.11-0.59); NEUT % 72.8 %; NEUT ABS # 4.16 K/uL (1.4-6.5); PLATELET COUNT 252 K/uL (130-400); RED CELL DISTRIBUTION WIDTH SD 55.2 fL (36.4-46.3); WHITE BLOOD COUNT 5.71 K/uL (4.8-10.8)
[2017-08-21 06:58] LABS: INR 1.3 (0.9-1.1)
[2017-08-21 08:06] VITALS: BP 104/58; PULSE 79; TEMP 36.5; O2SAT 96
[2017-08-21] MEDS: GUAIFENESIN 600 MG TABCR PO SCH ×2 (08:24→21:29)
--- NOTE | 2017-08-21 08:47 | Hospitalist Progress Note ---
Hospitalist Progress Note Date of Service Aug 21, 2017. Subjective Pt evaluation today including: conversation w/ patient, physical exam, chart review, lab review, review of studies Pain: None PO Intake: Good Voiding: no voiding problems The patient was seen and examined this morning. Pt reports having medication injected into the pleurex before my visit with him today, and the plan to have another administration within 1 hour. He reports his breathing has improved since being here, and that he is less short of breath with ambulation. Pt denies having abdominal pain unless his stomach is pressed on, denies bloating, n/v., and has been tolerating Po intake well. His bowels have not moved for 4 days now, so I have ordered a bowel regimen and discussed this with his nurse at bedside. Pt denies any other acute complaints. ROS: 6 point ROS reviewed and negative. Objective Vital Signs Date Time Temp Pulse Resp B/P (MAP) Pulse Ox O2 Delivery O2 Flow Rate FiO2 08/21/17 08:06 36.5 79 18 104/58 (73) 96 Nasal Cannula 2.0 08/21/17 07:20 Nasal Cannula 5.0 08/21/17 02:52 36.8 84 18 116/56 (76) 100 Nasal Cannula 2.0 08/20/17 23:40 Nasal Cannula 2.0 08/20/17 23:08 36.6 82 18 112/59 (76) 100 Nasal Cannula 2.0 08/20/17 20:06 36.3 89 17 100/62 (75) 96 Nasal Cannula 2.0 08/20/17 18:45 36.7 98 81/52 (62) 92 Nasal Cannula 2.0 08/20/17 18:40 36.7 98 17 91/52 (65) 92 Nasal Cannula 2.0 08/20/17 17:39 36.9 98 16 90/52 (65) 92 Nasal Cannula 2.0 08/20/17 16:40 36.5 89 19 99/62 (74) 91 Nasal Cannula 2.0 08/20/17 16:30 Nasal Cannula 2.0 08/20/17 16:30 Nasal Cannula 2.0 08/20/17 16:04 90 18 118/69 (85) 100 08/20/17 15:50 88 16 88/65 (73) 97 08/20/17 15:35 90 16 99/55 (70) 99 08/20/17 14:46 36.6 77 24 105/61 (76) 94 Nasal Cannula 2 Physical Exam Notes: General: awake, alert, no apparent distress, thin Head: Normocephalic, atraumatic ENT: PERRL, EOMI, no pharyngeal exudate, MMM, endentulous Chest: On room air, breath sounds improved in the right field but still with crackles, diminished breath sounds in the left base, good breath sounds in the right apex, Good aeration without adventitious sounds throughout the left. Pleurex catheter in RLL, no drainage from the site. Cardiac: Regular rate and rhythm, systolic murmur grade II/, no JVD, normal peripheral pulses, good capillary refill Abdominal: NABS x 4 quadrants, soft, tenderness RUQ with palpation, no rebound, guarding or tenderness Extremities: Normal inspection, no peripheral edema or erythema, calfs nontender to palpation Psych: Normal mood and affect Neuro: AAO x 3, speech is somewhat difficult to understand but at baseline per patient, follows commands appropriately, no peripheral sensory deficits Laboratory Results Last 24 Hours Test 08/21/17 06:16 White Blood Count 5.71 K/uL Red Blood Count 4.17 M/uL Hemoglobin 9.9 g/dL Hematocrit 33.4 % Mean Corpuscular Volume 80.1 fL Mean Corpuscular Hemoglobin 23.7 pg Mean Corpuscular Hemoglobin Concent 29.6 g/dl Platelet Count 252 K/uL Mean Platelet Volume 9.2 fL Neutrophils (%) (Auto) 72.8 % Lymphocytes (%) (Auto) 12.3 % Monocytes (%) (Auto) 9.3 % Eosinophils (%) (Auto) 4.9 % Basophils (%) (Auto) 0.5 % Neutrophils # (Auto) 4.16 K/uL Lymphocytes # (Auto) 0.70 K/uL Monocytes # (Auto) 0.53 K/uL Eosinophils # (Auto) 0.28 K/uL Basophils # (Auto) 0.03 K/uL RDW Standard Deviation 55.2 fL RDW Coefficient of Variation 19.0 % Immature Granulocyte % (Auto) 0.2 % Immature Granulocyte # (Auto) 0.01 K/uL Prothrombin Time 13.9 SECONDS Prothromb Time International Ratio 1.3 Assessment and Plan This is a 71 yo M with PMHx of dilated cardiomyopathy with severe left ventricular dysfunction with EF equal to 45% in 08/2015, CAD s/p 3 DEZ to diagonal and distal RCA, and PDA in 03/2016, mild aortic stenosis hypertension, hyperlipidemia, elevated alkaline phosphatase, GERD, diverticulosis, depression , weight loss of 40 pounds in the past year, dysphagia, iron deficiency anemia, who presents after right thoracentesis performed by Dr. Lancaster on 08/18/17. Thoracic fluid was found to be purulent so he has been directly admitted to the hospital for IV antibiotics for empyema. Right sided Complex empyema - Cont on Zosyn (started 08/18) - follow pleural fluid cytology and microbiology - No WBC, afebrile overnight, VSS - Follow BCx - NGTD - Thoracic surgery consulted- pleurex cath in place, drained 250 mL today - home pleurex kit at bedside - Supportive therapy with pulmonary toilet, encourage ambulation and taking deep breaths Chronic Systolic CHF in setting dilated cardiomyopathy with severe left ventricular dysfunction with EF equal to 45% in 08/2015, CAD s/p 3 DEZ to diagonal and distal RCA, and PDA in 03/2016 Mild aortic stenosis Hypertension Hyperlipidemia - Follows with Dr. Mata as an outpatient, last echocardiogram completed in August 2016. - Cardiology consulted - Continue [employer] WORKER meds: aspirin 81 mg, metoprolol succinate 200 mg QAM (recently adjusted by cardiology), Lasix 40 mg PO, benazepril 20 mg QAM, atorvastatin 80 mg QHS Dysphagia/ weight loss Right upper quadrant pain - RUQ U/S completed showing a hypoechoic nodularity involving the fundal gallbladder suggests fundal adenomyomatosis- will need 3 month follow-up U/S , 3 mm gallbladder polyp, mild gallbladder slude, hepatic steatosis - no intervention required for findings at this time. - GI on board - EGD completed 08/20 showing thickening in the stomach, biopsies sent to pathology. Last Cscope December 2015 - Speech consulted- allowed moist reg diet. Constipation - Bowel regimen ordered with miralax, dulcolax tabs 10 mg daily, and dulcolax suppository if needed. Encouraged to drink fluids and trial of prune juice today. GERD - Continue PPI Depression WALTER -Continue Zoloft 75 mg daily DVT prophylaxis: Heparin, teds, SCDs CODE STATUS: FULL Disposition: Patient from home, PT/OT to eval, CM to assist with discharge planning, discharge likely within 1 day
[2017-08-21] MEDS ORDERED: DORNASE ALFA 5 ML in SYRINGE 25 ML IPL SCH (09:00)
[2017-08-21] MEDS ORDERED: BISACODYL 10 MG SUPP PR PRN (10:00)
[2017-08-21] MEDS: POLYETHYLENE (MIRALAX) 17 GM PACK PO SCH (10:52)
[2017-08-21] MEDS: BISACODYL 5 MG TABEC PO SCH (10:52)
--- NOTE | 2017-08-21 12:22 | DIAGNOSTIC IMAGING REPORT ---
CHEST ONE VIEW PORTABLE HISTORY: right pleural effusion COMPARISON: Chest 08/20/2017. FINDINGS: Right basilar chest tube is again noted. Small bilateral pleural effusions, right greater the left. These are not significant changed. Rounded density seen within the right lateral lung base is again noted. Mild diffuse interstitial thickening persists. The heart remains mildly enlarged. Suspect a small amount of pleural gas within the right lung base, unchanged. IMPRESSION: 1. No change compared to the prior study. 2. Small bilateral pleural effusions, right greater than left, persist. There appears to be small amount of pleural gas within the right lung base consistent with a pneumothorax. 3. Diffuse interstitial thickening is again noted. Electronically signed by: Luis Bailey M.D. 08/21/2017 12:21 PM Dictated Date/Time: 08/21/2017 12:18 PM
[2017-08-21] MEDS ORDERED: NURSING VERBAL MED ORDER ONE ×2 (13:00→20:15)
[2017-08-21] MEDS ORDERED: MoRPHine SULFATE 2 MG/ML CARP IV ONE (13:00)
[2017-08-21] MEDS: ACETAMINOPHEN 325 MG TAB PO PRN (14:24)
--- NOTE | 2017-08-21 14:34 | Cardiology Follow-Up ---
Subjective Subjective Date of Service: Aug 21, 2017. Pt evaluation today including: conversation w/ patient, physical exam, chart review, lab review, review of studies, review of inpatient medication list Problem List Medical Problems: (1) Alkaline phosphatase elevation Status: Acute (2) Anemia Status: Acute (3) Chest pain Status: Acute (4) Gastritis Status: Acute (5) Pleural effusion, bilateral Status: Acute Review of Systems Constitutional: No fever Respiratory: + cough, + shortness of breath Cardiac: + chest pain Abdomen: + nausea, No pain Male : No dysuria Heme: No abnormal bleeding/bruising Endo: + fatigue Skin: No rash Objective Vital Signs Last Vital Signs Documentation Date Time Temp Pulse Resp B/P (MAP) Pulse Ox O2 Delivery O2 Flow Rate FiO2 08/21/17 08:06 36.5 79 18 104/58 (73) 96 Nasal Cannula 2.0 Physical Exam: General Appearance: + pertinent finding (thin; uncomfortable) ENT: hearing grossly normal Neck: no JVD Respiratory/Chest: chest non-tender, + decreased breath sounds (at bases bilaterally) Cardiovascular: regular rate, rhythm, no murmur Abdomen: soft, + tenderness Extremities: no pedal edema, no calf tenderness Neurologic/Psychiatric: alert, normal mood/affect Skin: warm/dry, no rash Assessment and Plan 1. Empyema s/p pleurex catheter 2. Chronic systolic heart failure/ICM EF 35-40% 3. Multivessel CAD 4. Dysphagia/Unintentional weight loss 5. Moderate to severe 6. Anemia Significant pain with pleurx catheter drainage and persistent effusion -- tentative plan for surgical drainage by Dr. Lancaster. From a cardiac standpoint at present appears well compensated with minimal congestion today No other active cardiac conditions. Reasonable baseline functional capacity. -- Patient OK to proceed with planned surgery without additional risk stratification. -- Continue to hold home antihypertensives and antiplatelet agents. Will continue to follow. Medications: Current Inpatient Medications Medications (Trade) Dose Ordered Sig/Kaitlynn Route Start Time Stop Time Status Last Admin Dose Admin Heparin Sodium (Porcine) (Heparin Sq 5000 Unit/0.5ml) 5,000 unit Q8H SQ 08/18/17 22:00 09/17/17 21:59 08/21/17 14:11 5,000 UNIT Acetaminophen (Tylenol Tab) 650 mg Q4H PRN PO 08/18/17 17:30 2/21/18 17:29 Magnesium Hydroxide (Milk Of Magnesia Susp) 30 ml Q6H PRN PO 08/18/17 17:30 09/17/17 17:29 Polyethylene (Miralax Powder Packet) 17 gm DAILY PRN PO 08/18/17 17:30 09/17/17 17:29 Ondansetron HCl (Zofran Inj) 4 mg Q6H PRN IV 08/18/17 17:30 09/17/17 17:29 08/19/17 21:53 4 MG Piperacillin Sod/ Tazobactam Sod 3.375 gm/Dextrose 115 ml @ 28.75 mls/ hr Q8H IV 08/19/17 02:00 08/26/17 01:59 08/21/17 10:01 28.75 MLS/HR Miscellaneous Information (Consult) 1 ea UD PRN N/A 08/18/17 17:30 09/17/17 17:29 Guaifenesin (Mucinex Contr Rel Tab) 600 mg Q12 PO 08/18/17 21:00 09/17/17 20:59 08/21/17 08:24 600 MG Tramadol HCl (Ultram Tab) 50 mg Q4H PRN PO 08/19/17 14:30 09/18/17 14:29 08/20/17 00:00 50 MG Hydroxyzine HCl (Vistaril Tab) 25 mg HS PRN PO 08/20/17 00:30 09/19/17 00:29 08/20/17 00:40 25 MG Morphine Sulfate (MoRPHine SULFATE INJ) 1 mg 0630,0930,1830,2130 IV 08/21/17 06:30 08/23/17 21:31 08/21/17 09:58 1 MG Alteplase, Recombinant (Activase Cathflo) 10 mg Q12H IPL 08/21/17 06:00 08/23/17 18:01 08/21/17 05:55 10 MG Dornase Alonso 5 ml/ Syringe 30 ml @ 0 mls/hr Q12H IPL 08/21/17 09:00 08/23/17 21:01 08/21/17 09:19 30 MLS/HR Morphine Sulfate (MoRPHine SULFATE INJ) 1 mg 0530,1730 IV 08/21/17 05:30 08/21/17 17:31 08/21/17 05:28 1 MG Bisacodyl (Dulcolax Tab) 10 mg DAILY PO 08/21/17 10:00 09/20/17 09:59 08/21/17 10:52 10 MG Polyethylene (Miralax Powder Packet) 17 gm DAILY PO 08/21/17 10:00 09/20/17 09:59 08/21/17 10:52 17 GM Bisacodyl (Dulcolax Supp) 10 mg DAILY PRN WI 08/21/17 10:00 09/20/17 09:59 Lab Results: 08/21/17 06:16 Red Blood Count 4.17, Mean Corpuscular Volume 80.1, Mean Corpuscular Hemoglobin 23.7, Mean Corpuscular Hemoglobin Concent 29.6, Mean Platelet Volume 9.2, Neutrophils (%) (Auto) 72.8, Lymphocytes (%) (Auto) 12.3, Monocytes (%) (Auto) 9.3, Eosinophils (%) (Auto) 4.9, Basophils (%) (Auto) 0.5, Neutrophils # (Auto) 4.16, Lymphocytes # (Auto) 0.70, Monocytes # (Auto) 0.53, Eosinophils # (Auto) 0.28, Basophils # (Auto) 0.03 Test 08/21/17 06:16 White Blood Count 5.71 K/uL (4.8-10.8) Red Blood Count 4.17 M/uL (4.7-6.1) Hemoglobin 9.9 g/dL (14.0-18.0) Hematocrit 33.4 % (42-52) Mean Corpuscular Volume 80.1 fL (80-100) Mean Corpuscular Hemoglobin 23.7 pg (25-34) Mean Corpuscular Hemoglobin Concent 29.6 g/dl (32-36) Platelet Count 252 K/uL (130-400) Mean Platelet Volume 9.2 fL (7.4-10.4) Neutrophils (%) (Auto) 72.8 % Lymphocytes (%) (Auto) 12.3 % Monocytes (%) (Auto) 9.3 % Eosinophils (%) (Auto) 4.9 % Basophils (%) (Auto) 0.5 % Neutrophils # (Auto) 4.16 K/uL (1.4-6.5) Lymphocytes # (Auto) 0.70 K/uL (1.2-3.4) Monocytes # (Auto) 0.53 K/uL (0.11-0.59) Eosinophils # (Auto) 0.28 K/uL (0-0.5) Basophils # (Auto) 0.03 K/uL (0-0.2) RDW Standard Deviation 55.2 fL (36.4-46.3) RDW Coefficient of Variation 19.0 % (11.5-14.5) Immature Granulocyte % (Auto) 0.2 % Immature Granulocyte # (Auto) 0.01 K/uL (0.00-0.02) Prothrombin Time 13.9 SECONDS (9.0-12.0) Prothromb Time International Ratio 1.3 (0.9-1.1)
--- NOTE | 2017-08-21 15:03 | SURGERY PROGRESS NOTE ---
DATE: 08/21/2017 SUBJECTIVE: Mr. Rizo had his upper endoscopy yesterday by Dr. Cummins and there was no gross evidence of a carcinoma. We are awaiting the biopsy results; however, I am encouraged by that. The process in his right chest may be due to an old hemothorax. The patient states that he fell while fishing a few months ago and all we see is evidence of old blood cytologically. There has been no growth. I had a long talk with the patient and his daughter, Vanita. I stated that options would be to continue the PleurX; however, the patient is having such pain with this PleurX that he has told me he cannot have it drained anymore. He really does suffer significant pain despite us pre-medicating him. Another option would be to put a regular chest tube and leave it and let eventually the cavity close around this; however, I do not think he is going to do well with that from my knowledge of this patient. Another option would be to simply remove the tube and let it the chest fill; however, his daughter states that, that is not an option. She states that he has deteriorated over the last few months from a clinical standpoint and the only thing we are able to find different is the fact that he has his apparent trapped lung. I talked to Dr. Willem Mata from cardiology and we are going to take him to the operating room tomorrow and offer him a thoracoscopic decortication. I had a long talk with the patient and his daughter and explained quite frankly that there are risks. My biggest concern is a pneumonia postoperatively. They understand. We will get him ready for tomorrow and proceed. LEROY
[2017-08-21] MEDS: TRAMADOL HCL 50 MG TAB PO PRN (15:53)
[2017-08-21 16:02] VITALS: BP 114/66; PULSE 96; TEMP 36.5; O2SAT 99
--- NOTE | 2017-08-21 16:18 | PROGRESS NOTE ---
DATE: 08/21/2017 The patient underwent EGD on 08/20/2017 because of a thickened stomach seen on CT scan. During that procedure the gastric folds were felt to be slightly prominent but not necessarily pathologic. Biopsies throughout the stomach and duodenum were performed. Other than mild nonspecific duodenitis there was no other significant pathologic findings. In fact, again gastric biopsies came back normal. At this point, no further intervention from a GI standpoint is felt to be needed. I will be available in the future if any changes arise.
[2017-08-21 23:55] VITALS: BP 101/61; PULSE 84; TEMP 36.7; O2SAT 95
[2017-08-22] VITALS (33 sets, daily range): BP systolic 75–121; BP diastolic 41–80; PULSE 52–150; TEMP 36.5–37; O2SAT 85–100
[2017-08-22] MEDS: PIPERACILL/TAZOBAC IV 3.375 GM in DEXTROSE 5% 100ML 100 ML IV SCH ×3 (02:14→17:25)
[2017-08-22] MEDS: MoRPHine SULFATE 2 MG/ML CARP IV SCH ×4 (06:30→21:30)
[2017-08-22 07:20] LABS: CREATININE 0.83 mg/dl (0.60-1.40)
[2017-08-22] MEDS: GUAIFENESIN 600 MG TABCR PO SCH ×2 (07:57→19:53)
[2017-08-22] MEDS: POLYETHYLENE (MIRALAX) 17 GM PACK PO SCH (07:57)
[2017-08-22] MEDS: BISACODYL 5 MG TABEC PO SCH (07:57)
--- NOTE | 2017-08-22 08:13 | DIAGNOSTIC IMAGING REPORT ---
SINGLE VIEW CHEST CLINICAL HISTORY: Pleural effusion. FINDINGS: An AP, portable, upright chest radiograph is compared to chest x-ray and chest CT dated 08/21/2017. The examination is degraded by portable technique and patient rotation. The heart is enlarged and there is atherosclerotic calcification of the thoracic aorta. Prominence of the pulmonary vasculature is less apparent than on yesterday's examination. Emphysema and chronic interstitial thickening are similar to previous. A pleural catheter at the right lung base is unchanged in position. A moderate pleural effusion is again seen at the right lung base. This is similar appearance to yesterday. There is a small left pleural effusion as well as bibasilar consolidation. No definite pneumothorax is seen. The skeletal structures are osteopenic. The bony thorax is grossly intact. IMPRESSION: 1. Cardiomegaly and emphysema. 2. A pleural drain at the right lung base is unchanged in appearance. Right larger than left pleural effusions are similar to yesterday. 3. Bibasilar consolidation is again noted. Electronically signed by: Herman Rivas M.D. 08/22/2017 8:12 AM Dictated Date/Time: 08/22/2017 8:10 AM
[2017-08-22] MEDS: ONDANSETRON INJ 2 MG/ML 2 ML VIAL IV PRN (11:11)
[2017-08-22] MEDS ORDERED: LORAZEPAM 0.5 MG TAB PO STA (11:22)
[2017-08-22] MEDS ORDERED: FENTANYL CITRATE INJ 50 MCG/1 ML 2 ML VIAL ONE (11:26)
[2017-08-22] MEDS ORDERED: LORAZEPAM 0.5 MG TAB ONE (11:31)
[2017-08-22] MEDS ORDERED: SODIUM CHLORIDE 0.9% PF 50 ML VIAL ONE (11:49)
[2017-08-22] MEDS ORDERED: BUPIVACAINE LIPOSOME 1/3% 266 MG/20 ML VIAL INFIL ONE (11:49)
[2017-08-22] MEDS ORDERED: BUPIVACAINE 0.5 % 5 MG/1 ML MPF 30ML VIAL ONE (11:49)
--- NOTE | 2017-08-22 12:44 | Anesthesiology Progress Note ---
Anesthesia Progress Note Date of Service Aug 22, 2017. Progress Notes Pt surgery cancelled due to new onset Dysrhthmia/SVT 150/min.Discussed w/Dr Lancaster.He agrees and will take care of pt transfer to ICU.
[2017-08-22] MEDS ORDERED: ACETAMINOPHEN 325 MG TAB PO PRN (12:45)
[2017-08-22] MEDS ORDERED: NURSING VERBAL MED ORDER ONE ×2 (12:58→13:59)
--- NOTE | 2017-08-22 13:01 | Hospitalist Progress Note ---
Hospitalist Progress Note Date of Service Aug 22, 2017. Subjective Pt evaluation today including: conversation w/ patient, conversation w/ family , physical exam, chart review, lab review PO Intake: NPO Voiding: no voiding problems The patient and his daughter were seen this morning. Patient notes he feels extremely anxious, and feels slightly nauseous. Nursing is at bedside and reports his heart rate is elevated in the 130s to 140s. We discussed trial of low-dose Ativan to help him relax, he is agreeable to this. If this doesn't work we will order venous medications to decrease the heart rate. Patient had pain with Pleurx drainage this morning, and is anticipating VATS procedure today. The patient has also not had a bowel movement for at least 4 days at this point, he is willing to use suppository today since other meds have not worked. ROS: Constitutional: No fever, sweats or chills Eyes: No diplopia, no worsening or blurred vision ENT: normal hearing, no trouble swallowing Respiratory: No cough, sputum, dyspnea at rest or on exertion Cardiovascular: No chest pain, tightness or palpitations Abdomen:+nausea and constipation, No vomiting or diarrhea Musculoskeletal: No joint pain, calf pain, swelling Neurologic: No weakness, numbness/tingling, or balance problems Psychiatric: No anxiety or depression Skin: No rash or itch Objective Vital Signs Date Time Temp Pulse Resp B/P (MAP) Pulse Ox O2 Delivery O2 Flow Rate FiO2 08/22/17 12:45 148 16 102/68 (79) 96 Nasal Cannula 2 08/22/17 12:22 36.6 150 18 96/68 (77) 90 Room Air 08/22/17 11:00 37.0 150 20 119/77 (91) 93 Room Air 08/22/17 08:00 Room Air 08/22/17 07:19 36.5 84 18 107/65 (79) 91 Room Air 08/21/17 23:55 36.7 84 18 101/61 (74) 95 Nasal Cannula 2.0 08/21/17 16:02 36.5 96 17 114/66 (82) 99 Nasal Cannula 2.0 08/21/17 16:00 Nasal Cannula 2.0 Physical Exam Notes: General: awake, alert, no apparent distress, thin, anxious Head: Normocephalic, atraumatic ENT: PERRL, EOMI, no pharyngeal exudate, MMM, endentulous Chest: On room air, breath sounds improved in the right field but still with crackles, diminished breath sounds in the left base, good breath sounds in the right apex, Good aeration without adventitious sounds throughout the left. Pleurex catheter in RLL, no drainage from the site. Cardiac: + Tachycardic, heart rate = 140s, systolic murmur grade II/, no JVD, normal peripheral pulses, good capillary refill Abdominal: NABS x 4 quadrants, soft, tenderness RUQ with palpation, no rebound, guarding or tenderness Extremities: Normal inspection, no peripheral edema or erythema, calfs nontender to palpation Psych: Normal mood and affect Neuro: AAO x 3, speech is somewhat difficult to understand but at baseline per patient, follows commands appropriately, no peripheral sensory deficits Laboratory Results Last 24 Hours Test 08/22/17 06:37 Creatinine 0.83 mg/dl Est Creatinine Clear Calc Drug Dose 79.3 ml/min Estimated GFR () 101.2 Estimated GFR (Non- 87.3 Assessment and Plan This is a 71 yo M with PMHx of dilated cardiomyopathy with severe left ventricular dysfunction with EF equal to 45% in 08/2015, CAD s/p 3 DEZ to diagonal and distal RCA, and PDA in 03/2016, mild aortic stenosis hypertension, hyperlipidemia, elevated alkaline phosphatase, GERD, diverticulosis, depression , weight loss of 40 pounds in the past year, dysphagia, iron deficiency anemia, who presents after right thoracentesis performed by Dr. Lancaster on 08/18/17. Thoracic fluid was found to be purulent so he has been directly admitted to the hospital for IV antibiotics for empyema. Right sided Complex empyema - Cont on Zosyn (started 08/18) - follow pleural fluid cytology and microbiology - No WBC, afebrile overnight, VSS - Follow BCx - NGTD - Thoracic surgery consulted- pleurex cath in place, patient unable to tolerate drainage from the Pleurx catheter due to pain, anticipate VATS procedure today - home pleurex kit at bedside - Supportive therapy with pulmonary toilet, encourage ambulation and taking deep breaths Tachycardia - Unresolved with low-dose Ativan for anxiety, we will order 25 mg hydralazine IV at this time, patient will be moved to the ICU after VATS procedure for closer monitoring. - Blood pressure stable in the low 100s, patient may be better suited for labetalol although cannot be administered on the third floor at this moment. Chronic Systolic CHF in setting dilated cardiomyopathy with severe left ventricular dysfunction with EF equal to 45% in 08/2015, CAD s/p 3 DEZ to diagonal and distal RCA, and PDA in 03/2016 Mild aortic stenosis Hypertension Hyperlipidemia - Follows with Dr. Mata as an outpatient, last echocardiogram completed in August 2016. - Cardiology consulted - Continue [employer] meds: aspirin 81 mg, metoprolol succinate 200 mg QAM (recently adjusted by cardiology), Lasix 40 mg PO, benazepril 20 mg QAM, atorvastatin 80 mg QHS Dysphagia/ weight loss Right upper quadrant pain - RUQ U/S completed showing a hypoechoic nodularity involving the fundal gallbladder suggests fundal adenomyomatosis- will need 3 month follow-up U/S , 3 mm gallbladder polyp, mild gallbladder slude, hepatic steatosis - no intervention required for findings at this time. - GI on board - EGD completed 08/20 showing thickening in the stomach, biopsies sent to pathology. Last Cscope December 2015 - Speech consulted- allowed moist reg diet - can continue workup as an outpatient. Constipation - Bowel regimen ordered with miralax, dulcolax tabs 10 mg daily, and dulcolax suppository if needed. Encouraged to drink fluids and trial of prune juice today. GERD - Continue PPI Depression WALTER -Continue Zoloft 75 mg daily DVT prophylaxis: Heparin, teds, SCDs CODE STATUS: FULL Disposition: Patient from home, PT/OT to eval, VATS procedure today The patient's daughter, Lucio has been updated at bedside. All her questions and concerns were addressed. Update: 1:10pm Received call from nursing in preop area: Pt was in new onset SVT with low blood pressure in the 70s over 50s. - Pt evaluated at bedside. S: Pt denies any acute chest pain, tightness, shortness of breath. He states does feel slightly nauseous still. O: no distress, awake and alert, tachycardic with HR high 140s- 150s, palpable pulse in distal extremities. A/P: Atrial flutter Patient did not receive hydralazine on the floor. Dr. Mata, cardiology present at bedside. 6 mg adenosine pushed to attempt to reveal a flutter. 12 mg adenosine pushed which did show a flutter on monitor. 12-lead EKG obtained during amiodarone bolus administration showing atrial flutter. 200 mg amiodarone bolus administered, drip started - rate remains around low 100s, blood pressure in the high 70s to 80s systolically, diastolics in the 50s. Anticoagulation with heparin drip low-dose bolus started. VATS procedure canceled per Dr. Lancaster, - he also spoke to the patient's daughter and updated her. We are awaiting a bed in the ICU for the patient will continue to be monitored.
[2017-08-22] MEDS ORDERED: HydrALAZINE HCL 20 MG/ML VIAL IV. STA (13:22)
--- NOTE | 2017-08-22 13:24 | Anesthesiology Progress Note ---
Anesthesia Progress Note Date of Service Aug 22, 2017. Progress Notes Mr. Rizo was scheduled for surgery with Dr. Lancaster today. He was brought to the holding area despite him having HR in 150's on the floor. Primary team had apparently been contacted. Dr. Prieto had seen patient in holding and seeing his HR decided to cancel the case after agreement with attending surgeon. I noticed patient became relatively hypotensive with SBP in low 80's. Given that I felt patient was unstable, I immediately contacted cardiology Dr. Mata as he had seen this patient daily on the floor. I also had the holding room nurses contact patient's primary team. Dr. Mata to bedside and is evaluating patient and he will be transferred to a higher level of care.
[2017-08-22] MEDS ORDERED: SODIUM CHLORIDE 0.9% 1000ML 1,000 ML IV ONE ×2 (13:30→14:45)
[2017-08-22] MEDS ORDERED: AMIODARONE IV BOLUS / DRIP IV STA (13:32)
[2017-08-22] MEDS ORDERED: AMIODARONE / D5W 200 ML IV SCH (13:45)
[2017-08-22] MEDS ORDERED: LIDOCAINE HCL 2% 2 ML VIAL (20MG/ML) ONE (14:22)
[2017-08-22] MEDS ORDERED: PROPOFOL IV EMULSION 10 MG/ML 20 ML VIAL IV ONE (14:22)
[2017-08-22] MEDS ORDERED: MIDAZOLAM HCL 1 MG/ML 2ML VIAL ONE (14:24)
[2017-08-22] MEDS ORDERED: HEPARIN IV BOLUS 4,000 UNIT in SYRINGE 0 ML IV ONE (14:30)
--- NOTE | 2017-08-22 14:40 | SURGERY PROGRESS NOTE ---
DATE: 08/22/2017 SUBJECTIVE: Mr. Rizo was scheduled for a thoracoscopic decortication today; however, he developed an apparent SVT/atrial flutter with a rate of about 150 on the floor. He was brought down to the holding area; however, we canceled the case when this was seen. I discussed this case with anesthesia as well as Dr Valente Mata from cardiology, Dr. Bay Camargo from the hospitalist service. I also discussed this case with Dr. Madrigal, who is the supervisor sewing room who will be taking him over in the unit. I also discussed his case with the patient's daughter Vanita. We will cancel the case right now and we will regroup after his cardiac issues are more stable. I have okayed the primary service to anticoagulate this patient. LEROY
[2017-08-22 14:43] LABS: BASO % 0.6 %; BASO ABS # 0.04 K/uL (0-0.2); EOS % 2.3 %; EOS ABS # 0.16 K/uL (0-0.5); HEMATOCRIT 31.6 % (42-52); HEMOGLOBIN 9.6 g/dL (14.0-18.0); IG# 0.01 K/uL (0.00-0.02); LYMPH ABS # 0.62 K/uL (1.2-3.4); MEAN CELL VOLUME 78.8 fL (80-100); MEAN CORPUSCULAR HEMOGLOBIN 23.9 pg (25-34); MEAN PLATELET VOLUME 9.6 fL (7.4-10.4); MONO % 9.1 %; MONO ABS # 0.63 K/uL (0.11-0.59); NEUT % 78.9 %; NEUT ABS # 5.45 K/uL (1.4-6.5); PLATELET COUNT 240 K/uL (130-400); RED CELL DISTRIBUTION WIDTH CV 18.8 % (11.5-14.5); RED CELL DISTRIBUTION WIDTH SD 54.4 fL (36.4-46.3); WHITE BLOOD COUNT 6.91 K/uL (4.8-10.8)
[2017-08-22 14:48] LABS: MEAN CORPUSCULAR HGB CONC 30.4 g/dl (32-36)
[2017-08-22 14:52] LABS: INR 1.3 (0.9-1.1); PTT PATIENT 28.4 SECONDS (21.0-31.0)
[2017-08-22] MEDS ORDERED: SODIUM CHLORIDE 0.9% 1000ML 1,000 ML IV SCH (15:00)
--- NOTE | 2017-08-22 15:07 | Anesthesiology Progress Note ---
Anesthesia Post Op Note Date & Time Aug 22, 2017 at 15:07 Vital Signs Pain Intensity: 0.0 Vital Signs Past 12 Hours Date Time Temp Pulse Resp B/P (MAP) Pulse Ox O2 Delivery O2 Flow Rate FiO2 08/22/17 13:50 113 16 80/57 (65) 98 Mask 6 08/22/17 13:40 133 16 71/51 (58) 98 Mask 6 08/22/17 13:30 144 16 87/59 (68) 99 Mask 6 08/22/17 13:20 140 16 91/50 (64) 98 Mask 6 08/22/17 13:05 142 16 79/54 (62) 97 Mask 6 08/22/17 12:57 144 16 82/45 (57) 95 Nasal Cannula 2 08/22/17 12:45 148 16 102/68 (79) 96 Nasal Cannula 2 08/22/17 12:22 36.6 150 18 96/68 (77) 90 Room Air 08/22/17 11:00 37.0 150 20 119/77 (91) 93 Room Air 08/22/17 08:00 Room Air 08/22/17 07:19 36.5 84 18 107/65 (79) 91 Room Air Notes Mental Status: alert / awake / arousable, participated in evaluation, see Notes Pt Amnestic to Procedure: Yes Nausea / Vomiting: adequately controlled Pain: adequately controlled Airway Patency, RR, SpO2: stable & adequate BP & HR: stable & adequate Hydration State: stable & adequate Anesthetic Complications: no major complications apparent Patient somnolent but arousable. Sedation given for cardioversion in ICU. No complications.
[2017-08-22 15:10] LABS: CALCIUM 8.2 mg/dl (8.5-10.1); CREATININE 0.7 mg/dl (0.60-1.40); POTASSIUM 4.6 mmol/L (3.5-5.1)
--- NOTE | 2017-08-22 15:10 | Cardiology Follow-Up ---
Subjective Subjective Date of Service: Aug 22, 2017. Pt evaluation today including: conversation w/ patient, physical exam, chart review, lab review, review of studies, conversation w/ art consultant, review of inpatient medication list Additional Details: Newly tachycardic to 150s this AM. Tachycardia persistent and associated with hypotension to 80s. Called to anesthesia holding area to evaluate. Given 6mg, and 12mg of adenosine for SVT --> noted to have underlying typical flutter Remained in AFL with RVR with relative hypotension --> started on amiodarone infusion and transferred to ICU. In ICU due to persistent relative hypotension decision made to proceed with cardioversion Received 3 shocks (200J, 200J, 300J) with persistent AFL with variable conduction --> HR 100-110s, SBP in 90s. Problem List Medical Problems: (1) Alkaline phosphatase elevation Status: Acute (2) Anemia Status: Acute (3) Chest pain Status: Acute (4) Gastritis Status: Acute (5) Pleural effusion, bilateral Status: Acute Review of Systems Constitutional: No fever Respiratory: + cough, + shortness of breath Cardiac: + chest pain, + palpitations Abdomen: + nausea, No pain Male : No dysuria Heme: No abnormal bleeding/bruising Endo: + fatigue Skin: No rash Objective Vital Signs Last Vital Signs Documentation Date Time Temp Pulse Resp B/P (MAP) Pulse Ox O2 Delivery O2 Flow Rate FiO2 08/22/17 13:50 113 16 80/57 (65) 98 Mask 6 08/22/17 12:22 36.6 Physical Exam: General Appearance: no apparent distress, + pertinent finding (thin; uncomfortable) ENT: hearing grossly normal Neck: no JVD Respiratory/Chest: chest non-tender, + decreased breath sounds (at bases bilaterally) Cardiovascular: + tachycardia, + systolic murmur (2/6 NAYANA), + irregularly irregular Abdomen: soft, + tenderness Extremities: no pedal edema, no calf tenderness Neurologic/Psychiatric: alert, normal mood/affect Skin: warm/dry, no rash Assessment and Plan 1. Empyema s/p pleurex catheter 2. New atrial flutter with RVR 3. Chronic systolic heart failure/ICM EF 35-40% 4. Multivessel CAD 5. Moderate to severe 6. Dysphagia/Unintentional weight loss 7. Anemia New AFL with RVR today s/p unsuccessful cardioversion. Adequately rate controlled on amiodarone BPs improved with rate control IVFs. -- Continue IV amiodarone load 1mg x6, 0.5 x 18 hrs -- Continue heparin infusion -- No congestion on exam but would avoid significant additional fluids -- Antihypertensives on hold. Resume low dose beta-salbador as BP allows. Will continue to follow. Medications: Current Inpatient Medications Medications (Trade) Dose Ordered Sig/Kaitlynn Route Start Time Stop Time Status Last Admin Dose Admin Heparin Sodium (Porcine) (Heparin Sq 5000 Unit/0.5ml) 5,000 unit Q8H SQ 08/18/17 22:00 09/17/17 21:59 Future hold 08/21/17 14:11 5,000 UNIT Acetaminophen (Tylenol Tab) 650 mg Q4H PRN PO 08/18/17 17:30 09/17/17 17:29 08/21/17 14:24 650 MG Magnesium Hydroxide (Milk Of Magnesia Susp) 30 ml Q6H PRN PO 08/18/17 17:30 09/17/17 17:29 Polyethylene (Miralax Powder Packet) 17 gm DAILY PRN PO 08/18/17 17:30 09/17/17 17:29 Ondansetron HCl (Zofran Inj) 4 mg Q6H PRN IV 08/18/17 17:30 09/17/17 17:29 08/22/17 11:11 4 MG Piperacillin Sod/ Tazobactam Sod 3.375 gm/Dextrose 115 ml @ 28.75 mls/ hr Q8H IV 08/19/17 02:00 08/26/17 01:59 08/22/17 10:26 28.75 MLS/HR Miscellaneous Information (Consult) 1 ea UD PRN N/A 08/18/17 17:30 09/17/17 17:29 Guaifenesin (Mucinex Contr Rel Tab) 600 mg Q12 PO 08/18/17 21:00 09/17/17 20:59 08/22/17 07:57 600 MG Tramadol HCl (Ultram Tab) 50 mg Q4H PRN PO 08/19/17 14:30 09/18/17 14:29 08/21/17 15:53 50 MG Hydroxyzine HCl (Vistaril Tab) 25 mg HS PRN PO 08/20/17 00:30 09/19/17 00:29 08/20/17 00:40 25 MG Morphine Sulfate (MoRPHine SULFATE INJ) 1 mg 0630,0930,1830,2130 IV 08/21/17 06:30 08/23/17 21:31 08/21/17 09:58 1 MG Bisacodyl (Dulcolax Tab) 10 mg DAILY PO 08/21/17 10:00 09/20/17 09:59 08/22/17 07:57 10 MG Polyethylene (Miralax Powder Packet) 17 gm DAILY PO 08/21/17 10:00 09/20/17 09:59 08/21/17 10:52 17 GM Bisacodyl (Dulcolax Supp) 10 mg DAILY PRN VA 08/21/17 10:00 09/20/17 09:59 Acetaminophen (Tylenol Tab) 325 mg DAILY PRN PO 08/22/17 12:45 09/21/17 12:44 Atorvastatin Calcium (Lipitor Tab) 80 mg DAILY PO 08/23/17 09:00 09/22/17 08:59 Furosemide (Lasix Tab) 40 mg QAM PO 08/23/17 09:00 09/22/17 08:59 Metoprolol Succinate (Toprol Xl Tab) 100 mg BID PO 08/22/17 21:00 09/21/17 20:59 Multivitamins (Multivitamin Tab) 1 tab QAM PO 08/23/17 09:00 09/22/17 08:59 Pantoprazole Sodium (Protonix Tab) 40 mg QAM PO 08/23/17 09:00 09/22/17 08:59 Senna (Senokot Tab) 8.6 mg QAM PO 08/23/17 09:00 09/22/17 08:59 Sertraline HCl (Zoloft Tab) 75 mg QAM PO 08/23/17 09:00 09/22/17 08:59 Benazepril HCl (Lotensin Tab) 20 mg QAM PO 08/23/17 09:00 09/22/17 08:59 Bimatoprost (Lumigan 0.01%) 1 drops HS OP 08/22/17 21:00 09/21/17 20:59 Ferrous Sulfate (Feosol Tab) 325 mg BID PO 08/22/17 21:00 09/21/17 20:59 Amiodarone HCL/ Dextrose 200 ml @ 33.3 mls/hr Q6H1M IV 08/22/17 13:45 08/22/17 19:45 08/22/17 13:47 33.3 MLS/HR Amiodarone HCL/ Dextrose 200 ml @ 16.7 mls/hr [id number] IV 08/22/17 19:45 09/21/17 19:44 Heparin Sodium/ Dextrose 500 ml @ 17 mls/hr Q24H PRN IV 08/22/17 14:30 09/21/17 14:29 Sodium Chloride 1,000 ml @ 999 mls/hr Q1H1M ONCE IV 08/22/17 14:45 08/22/17 15:45 Lab Results: 08/22/17 14:30 Red Blood Count 4.01, Mean Corpuscular Volume 78.8, Mean Corpuscular Hemoglobin 23.9, Mean Corpuscular Hemoglobin Concent 30.4, Mean Platelet Volume 9.6, Neutrophils (%) (Auto) 78.9, Lymphocytes (%) (Auto) 9.0, Monocytes (%) (Auto) 9.1, Eosinophils (%) (Auto) 2.3, Basophils (%) (Auto) 0.6, Neutrophils # (Auto) 5.45, Lymphocytes # (Auto) 0.62, Monocytes # (Auto) 0.63, Eosinophils # (Auto) 0.16, Basophils # (Auto) 0.04 Test 08/22/17 06:37 08/22/17 14:22 08/22/17 14:30 Est Creatinine Clear Calc Drug Dose 79.3 ml/min White Blood Count 6.91 K/uL (4.8-10.8) Red Blood Count 4.01 M/uL (4.7-6.1) Hemoglobin 9.6 g/dL (14.0-18.0) Hematocrit 31.6 % (42-52) Mean Corpuscular Volume 78.8 fL (80-100) Mean Corpuscular Hemoglobin 23.9 pg (25-34) Mean Corpuscular Hemoglobin Concent 30.4 g/dl (32-36) Platelet Count 240 K/uL (130-400) Mean Platelet Volume 9.6 fL (7.4-10.4) Neutrophils (%) (Auto) 78.9 % Lymphocytes (%) (Auto) 9.0 % Monocytes (%) (Auto) 9.1 % Eosinophils (%) (Auto) 2.3 % Basophils (%) (Auto) 0.6 % Neutrophils # (Auto) 5.45 K/uL (1.4-6.5) Lymphocytes # (Auto) 0.62 K/uL (1.2-3.4) Monocytes # (Auto) 0.63 K/uL (0.11-0.59) Eosinophils # (Auto) 0.16 K/uL (0-0.5) Basophils # (Auto) 0.04 K/uL (0-0.2) RDW Standard Deviation 54.4 fL (36.4-46.3) RDW Coefficient of Variation 18.8 % (11.5-14.5) Immature Granulocyte % (Auto) 0.1 % Immature Granulocyte # (Auto) 0.01 K/uL (0.00-0.02) Prothrombin Time 13.9 SECONDS (9.0-12.0) Prothromb Time International Ratio 1.3 (0.9-1.1) Activated Partial Thromboplast Time 28.4 SECONDS (21.0-31.0) Partial Thromboplastin Ratio 1.1
--- NOTE | 2017-08-22 15:14 | Procedure Note ---
Procedure Note Procedure Date Aug 22, 2017. Procedure Description Procedure Name: External DC cardioversion Procedure time out: side/site verified Consent obtained: verbal Indications: therapeutic Contraindications: none Description: Anesthesia provided by anesthesia service. -- External pads placed in anterior/lateral position -- Received 3 shocks (200J, 200J, 300J) -- Remained in atrial flutter with variable response (HR 100-110s) -- Patient tolerated procedure without complications. Summary: Unsuccessful DC cardioversion. Recommendations: Continue amiodarone and systemic anticoagulation. Complications: none Patient tolerated procedure: well Post-procedure vital signs: reviewed and stable
[2017-08-22] MEDS: HEPARIN 25,000 UNIT/500ML D5W 500 ML IV PRN (15:23)
[2017-08-22] MEDS ORDERED: DIGOXIN IV 250 MCG in SYRINGE 9 ML IV ONE (15:30)
--- NOTE | 2017-08-22 17:05 | Critical Care Consultation ---
Critical Care Consultation Date of Consultation: Aug 22, 2017. Attending Physician: Bay Camargo D.O. Reason for Consultation: A flutter, refractory to treatment, complex pleural fusion. History of Present Illness 71-year-old gentleman with a history of cardiomyopathy EF of 45%, history of recent fall and sustained right-sided pleural effusion status post thoracentesis with the fluid appeared to be exudate and a pH of 7.1, predominantly monocytes, the patient presented to the hospital for evaluation and treatment by Dr. Lancaster with VATS. The patient was planned for the procedure today however he developed tachycardia with SVT and evaluated by Dr. Mata from cardiology. The patient was found to have rapid A. fib or not responsive to cardioversion. The patient was started on heparin drip and was admitted to the ICU for further management. The patient heart rate remains in the range of 440 however responded to amiodarone drip as well as digoxin loading dose. The patient was just waking up from the conscious sedation for the cardioversion , review of system was very limited however he denies any chest pain or shortness of breath, he did not have any feeling of palpitation. No nausea or vomiting no headache and no dizziness. He denies any sensation of moving his bowel at the same time. The rest of his review of system otherwise was limited but unremarkable. Social History Smoking Status: Former Smoker Smokeless Tobacco Use: No Alcohol Use: socially Drug Use: none Marital Status: Allergies Coded Allergies: No Known Allergies (Verified , 08/20/17) Home Medications Scheduled Atorvastatin (Lipitor), 80 MG PO DAILY Benazepril (Lotensin), 20 MG PO QAM Bimatoprost (Lumigan), 1 DROPS OP HS Cholecalciferol (Vitamin D3), 2,000 UNITS PO QAM Ferrous Sulfate (Kp Ferrous Sulfate), 1 TAB PO BID Furosemide (Lasix), 40 MG PO QAM Metoprolol Succ (Toprol Xl) (Toprol-Xl ), 100 MG PO BID Multivitamin (Multivitamin), 1 TAB PO QAM Pantoprazole (Protonix), 40 MG PO QAM Senna (Senokot), 1 TAB PO QAM Sertraline (Zoloft), 1.5 TAB PO QAM Scheduled PRN Acetaminophen (Tylenol), 325 MG PO DAILY PRN for Pain or Fever Current Inpatient Medications Current Inpatient Medications Medications (Trade) Dose Ordered Sig/Kaitlynn Route Start Time Stop Time Status Last Admin Dose Admin Heparin Sodium (Porcine) (Heparin Sq 5000 Unit/0.5ml) 5,000 unit Q8H SQ 08/18/17 22:00 09/17/17 21:59 Future hold 08/21/17 14:11 5,000 UNIT Acetaminophen (Tylenol Tab) 650 mg Q4H PRN PO 08/18/17 17:30 09/17/17 17:29 08/21/17 14:24 650 MG Magnesium Hydroxide (Milk Of Magnesia Susp) 30 ml Q6H PRN PO 08/18/17 17:30 09/17/17 17:29 Polyethylene (Miralax Powder Packet) 17 gm DAILY PRN PO 08/18/17 17:30 09/17/17 17:29 Ondansetron HCl (Zofran Inj) 4 mg Q6H PRN IV 08/18/17 17:30 09/17/17 17:29 08/22/17 11:11 4 MG Piperacillin Sod/ Tazobactam Sod 3.375 gm/Dextrose 115 ml @ 28.75 mls/ hr Q8H IV 08/19/17 02:00 08/26/17 01:59 08/22/17 10:26 28.75 MLS/HR Miscellaneous Information (Consult) 1 ea UD PRN N/A 08/18/17 17:30 09/17/17 17:29 Guaifenesin (Mucinex Contr Rel Tab) 600 mg Q12 PO 08/18/17 21:00 09/17/17 20:59 08/22/17 07:57 600 MG Tramadol HCl (Ultram Tab) 50 mg Q4H PRN PO 08/19/17 14:30 09/18/17 14:29 08/21/17 15:53 50 MG Hydroxyzine HCl (Vistaril Tab) 25 mg HS PRN PO 08/20/17 00:30 09/19/17 00:29 08/20/17 00:40 25 MG Morphine Sulfate (MoRPHine SULFATE INJ) 1 mg 0630,0930,1830,2130 IV 08/21/17 06:30 08/23/17 21:31 08/21/17 09:58 1 MG Bisacodyl (Dulcolax Tab) 10 mg DAILY PO 08/21/17 10:00 09/20/17 09:59 08/22/17 07:57 10 MG Polyethylene (Miralax Powder Packet) 17 gm DAILY PO 08/21/17 10:00 09/20/17 09:59 08/21/17 10:52 17 GM Bisacodyl (Dulcolax Supp) 10 mg DAILY PRN AR 08/21/17 10:00 09/20/17 09:59 Acetaminophen (Tylenol Tab) 325 mg DAILY PRN PO 08/22/17 12:45 09/21/17 12:44 Atorvastatin Calcium (Lipitor Tab) 80 mg DAILY PO 08/23/17 09:00 09/22/17 08:59 Furosemide (Lasix Tab) 40 mg QAM PO 08/23/17 09:00 09/22/17 08:59 Metoprolol Succinate (Toprol Xl Tab) 100 mg BID PO 08/22/17 21:00 09/21/17 20:59 Future Hold Multivitamins (Multivitamin Tab) 1 tab QAM PO 08/23/17 09:00 09/22/17 08:59 Pantoprazole Sodium (Protonix Tab) 40 mg QAM PO 08/23/17 09:00 09/22/17 08:59 Senna (Senokot Tab) 8.6 mg QAM PO 08/23/17 09:00 09/22/17 08:59 Sertraline HCl (Zoloft Tab) 75 mg QAM PO 08/23/17 09:00 09/22/17 08:59 Benazepril HCl (Lotensin Tab) 20 mg QAM PO 08/23/17 09:00 09/22/17 08:59 Future Hold Bimatoprost (Lumigan 0.01%) 1 drops HS OP 08/22/17 21:00 09/21/17 20:59 Ferrous Sulfate (Feosol Tab) 325 mg BID PO 08/22/17 21:00 09/21/17 20:59 Amiodarone HCL/ Dextrose 200 ml @ 33.3 mls/hr Q6H1M IV 08/22/17 13:45 08/22/17 19:45 08/22/17 13:47 33.3 MLS/HR Amiodarone HCL/ Dextrose 200 ml @ 16.7 mls/hr [id number] IV 08/22/17 19:45 09/21/17 19:44 Heparin Sodium/ Dextrose 500 ml @ 17 mls/hr Q24H PRN IV 08/22/17 14:30 09/21/17 14:29 08/22/17 15:23 17 MLS/HR Digoxin 250 mcg/ Syringe 10 ml @ 2 mls/min Q4H IV 08/22/17 20:00 08/23/17 00:04 Review of Systems Constitutional: + fever, + chills, + sweats, No weight loss, No weakness, No fatigue, No problem reported Eyes: No worsening of vision, No eye pain, No redness, No discharge, No diplopia, No problem reported ENT: No hearing loss, No unusual epistaxis, No nasal symptoms, No sore throat, No tinnitus, No dental problems, No trouble swallowing, No problem reported Respiratory: + cough, + wheezing Cardiovascular: No chest pain, No orthopnea, No PND, No edema, No claudication , No palpitations, No problem reported Abdomen: No pain, No nausea, No vomiting, No diarrhea, No constipation, No GI bleeding, No problem reported Musculoskeletal: No joint pain, No muscle pain, No swelling, No calf pain, No problem reported Neurologic: No memory loss, No paralysis, No weakness, No numbness/tingling, No vertigo, No balance problems, No problem reported Psychiatric: No depression symptoms, No anhedonism, No anxiety, No insomnia, No substance abuse, No problem reported Integumentary: No rash, No itch, No new/changing skin lesions, No color change , No bleeding, No problem reported Physical Exam Date Time Temp Pulse Resp B/P (MAP) Pulse Ox O2 Delivery O2 Flow Rate FiO2 08/22/17 16:00 Mask 5.0 08/22/17 16:00 36.6 143 16 94/59 (71) 98 Nasal Cannula 4.0 08/22/17 15:45 120 08/22/17 13:50 113 16 80/57 (65) 98 Mask 6 08/22/17 13:40 133 16 71/51 (58) 98 Mask 6 08/22/17 13:30 144 16 87/59 (68) 99 Mask 6 08/22/17 13:20 140 16 91/50 (64) 98 Mask 6 08/22/17 13:05 142 16 79/54 (62) 97 Mask 6 08/22/17 12:57 144 16 82/45 (57) 95 Nasal Cannula 2 08/22/17 12:45 148 16 102/68 (79) 96 Nasal Cannula 2 08/22/17 12:22 36.6 150 18 96/68 (77) 90 Room Air 08/22/17 11:00 37.0 150 20 119/77 (91) 93 Room Air 08/22/17 08:00 Room Air 08/22/17 07:19 36.5 84 18 107/65 (79) 91 Room Air 08/21/17 23:55 36.7 84 18 101/61 (74) 95 Nasal Cannula 2.0 General Appearance: well-appearing, no apparent distress Eyes: PERRLA, EOMI ENT: normal mouth exam Neck: normal range of motion, no tenderness, trachea midline, no stridor, supple, no thyromegaly Respiratory: breath sounds normal, clear to auscultation (minimally decreased breath sounds at the right base.) Cardiovasular: regular rate/rhythm, normal S1S2, no M/G/R (tachycardia) Abdomen: non tender, normal bowel sounds, no masses Lower Extremities: no edema Neuro: alert, oriented x 3, normal motor exam Laboratory Results Last 24 Hours Test 08/22/17 06:37 08/22/17 14:22 08/22/17 14:30 Creatinine 0.83 mg/dl 0.70 mg/dl Est Creatinine Clear Calc Drug Dose 79.3 ml/min 94.0 ml/min Estimated GFR () 101.2 108.5 Estimated GFR (Non- 87.3 93.6 Sodium Level 132 mmol/L Potassium Level 4.6 mmol/L Chloride Level 97 mmol/L Carbon Dioxide Level 34 mmol/L Anion Gap 1.0 mmol/L Blood Urea Nitrogen 9 mg/dl BUN/Creatinine Ratio 12.3 Random Glucose 91 mg/dl Calcium Level 8.2 mg/dl Magnesium Level 1.9 mg/dl White Blood Count 6.91 K/uL Red Blood Count 4.01 M/uL Hemoglobin 9.6 g/dL Hematocrit 31.6 % Mean Corpuscular Volume 78.8 fL Mean Corpuscular Hemoglobin 23.9 pg Mean Corpuscular Hemoglobin Concent 30.4 g/dl Platelet Count 240 K/uL Mean Platelet Volume 9.6 fL Neutrophils (%) (Auto) 78.9 % Lymphocytes (%) (Auto) 9.0 % Monocytes (%) (Auto) 9.1 % Eosinophils (%) (Auto) 2.3 % Basophils (%) (Auto) 0.6 % Neutrophils # (Auto) 5.45 K/uL Lymphocytes # (Auto) 0.62 K/uL Monocytes # (Auto) 0.63 K/uL Eosinophils # (Auto) 0.16 K/uL Basophils # (Auto) 0.04 K/uL RDW Standard Deviation 54.4 fL RDW Coefficient of Variation 18.8 % Immature Granulocyte % (Auto) 0.1 % Immature Granulocyte # (Auto) 0.01 K/uL Prothrombin Time 13.9 SECONDS Prothromb Time International Ratio 1.3 Activated Partial Thromboplast Time 28.4 SECONDS Partial Thromboplastin Ratio 1.1 Diagnostic Results Chest x-ray and CAT scans were reviewed which revealed proximal catheter in place, the patient has remnant of complex pleural effusion on the right side. Hyperinflated lungs and COPD changes also noted. Assessment & Plan #1 Complex pleural effusion, status post tunneled pleural catheter. Preparation for VATS by Dr. Lancaster. The patient pH is 7.1 in the pleural fluid however no bacteriology was noted. This likely representing complex pleural effusion rather than empyema. #2 refractory A. fib flutter, status post cardioversion, on amiodarone drip and digitoxin. #3 cardiomyopathy with EF of 45% recently. #4 COPD noted with changes on the CAT scan. #5 history of recent fall, I'm not sure if it is related to his accommodation of pleural effusion secondary to pulmonary contusion. #6 although the pleural fluid predominantly monocytic, evaluation by cytology would be the next step. Evaluation for mesothelioma is indicated. The low pH speaks for the chronicity of the pleural fluid. Rheumatoid arthritis is another possibility for low pH as well. #7 agree with heparin drip. #8 continue current treatment. #9 obtain triglyceride level on the fluid. #10 it would be extremely unlikely without lymphocytosis to consider mycobacteria infection. #11 continue with digoxin 0.25 mg 3 doses every 4 hours for loading and start 0.25 mg in the morning. Digoxin was given for rate control as a patient blood pressure systolic was 85 and diastolic was 46. Continue with amiodarone. Case discussed with the staff on rounds and details. CCT 45 minutes. Thank you
--- NOTE | 2017-08-22 19:28 | GASTROENTEROLOGY PROGRESS NOTE ---
DATE: 08/22/2017 GASTROENTEROLOGY INPATIENT PROGRESS NOTE SUBJECTIVE: Chart reviewed, patient examined patient underwent upper endoscopy August 19, biopsies returned back with normal gastric lining and mild duodenitis. Endoscopic features of significant thickening were not appreciated as suggested by a CT imaging. Overall, the patient is doing better from a breathing standpoint. He has no nausea, vomiting or abdominal pain currently. Alkaline phosphatase has remained in a stable pattern of 232. In the office, this was fractionated and with a total alkaline phosphatase in the similar range and the majority of it is biliary, although GGT and other liver tests are normal chronically as they are during this hospitalization. 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 Three-month followup ultrasound is recommended. There was also a 3 mm gallbladder polyp. There was mild gallbladder slight but no evidence for cholelithiasis. Fatty liver is also appreciated, bile ducts were not dilated. MEDICATIONS: His medications were reviewed. PHYSICAL EXAMINATION: VITAL SIGNS: Currently, his heart rate is 115, afebrile at 36.8, respirations 18, blood pressure 89/61 and pulse ox 99% on 3 liters. GENERAL: The patient is awake, alert and oriented x3, although feels fatigued. HEENT: Sclerae are anicteric, conjunctivae moist. Oral mucosa moist. HEART: Normal S1, S2. LUNGS: Clear to auscultation. ABDOMEN: Soft, flat, nontender, nondistended. Good bowel sounds. EXTREMITIES: Without clubbing, cyanosis or edema. RECTAL: Deferred. IMPRESSION AND PLAN: Mr. Rizo underwent thoracentesis during this hospitalization and DC cardioversion, which was unfortunately unsuccessful. Pleural fluid showed abundant blood but no malignant cells with some mesothelial inflammatory cells but no evidence of malignancy. We will follow the patient as an outpatient in the office. At the present time, would continue his current GI medications as an outpatient that includes pantoprazole 40 mg daily. Iron supplements are reasonable. He did have a colonoscopy in every August 2009, which was a good prep to the terminal ileum with several small to medium polyps removed. All questions answered. Will sign off at this time. Please call if we can be of further assistance during this admission.
[2017-08-22] MEDS: AMIODARONE / D5W 200 ML IV SCH (19:51)
[2017-08-22] MEDS: DIGOXIN IV 250 MCG in SYRINGE 9 ML IV SCH (19:53)
[2017-08-22] MEDS ORDERED: METOPROLOL SUCC 50MG EXT REL TAB PO SCH (21:00)
[2017-08-22] MEDS: FERROUS SULFATE 325 MG TAB PO SCH (21:18)
[2017-08-22] MEDS: BIMATOPROST 0.01% OP SOLN 2.5 ML BTL OP SCH (21:19)
[2017-08-22 21:59] LABS: PTT PATIENT 36.4 SECONDS (21.0-31.0)
[2017-08-22] MEDS: HEPARIN SOD 5000 UNIT/0.5 ML CARP SQ SCH (21:59)
[2017-08-22] MEDS ORDERED: HEPARIN IV BOLUS 4,500 UNIT in SYRINGE 0 ML IV ONE (23:30)
[2017-08-23] VITALS (13 sets, daily range): BP systolic 96–127; BP diastolic 38–73; PULSE 65–99; TEMP 36.4–36.7; O2SAT 92–100
[2017-08-23] MEDS: DIGOXIN IV 250 MCG in SYRINGE 9 ML IV SCH (00:15)
[2017-08-23] MEDS: PIPERACILL/TAZOBAC IV 3.375 GM in DEXTROSE 5% 100ML 100 ML IV SCH ×3 (02:05→17:18)
[2017-08-23] MEDS: ACETAMINOPHEN 325 MG TAB PO PRN (04:00)
[2017-08-23] MEDS: AMIODARONE / D5W 200 ML IV SCH ×2 (05:14→17:40)
[2017-08-23 05:16] LABS: BASO % 0.7 %; BASO ABS # 0.04 K/uL (0-0.2); EOS ABS # 0.23 K/uL (0-0.5); HEMATOCRIT 32.2 % (42-52); HEMOGLOBIN 9.5 g/dL (14.0-18.0); IG# 0.01 K/uL (0.00-0.02); LYMPH % 12.4 %; LYMPH ABS # 0.71 K/uL (1.2-3.4); MEAN CELL VOLUME 79.1 fL (80-100); MEAN CORPUSCULAR HEMOGLOBIN 23.3 pg (25-34); MEAN CORPUSCULAR HGB CONC 29.5 g/dl (32-36); MEAN PLATELET VOLUME 9.7 fL (7.4-10.4); MONO % 8.4 %; MONO ABS # 0.48 K/uL (0.11-0.59); NEUT % 74.3 %; NEUT ABS # 4.27 K/uL (1.4-6.5); PLATELET COUNT 251 K/uL (130-400); RED CELL DISTRIBUTION WIDTH CV 18.8 % (11.5-14.5); RED CELL DISTRIBUTION WIDTH SD 54.5 fL (36.4-46.3); WHITE BLOOD COUNT 5.74 K/uL (4.8-10.8)
[2017-08-23] MEDS: MoRPHine SULFATE 2 MG/ML CARP IV SCH ×4 (05:40→20:40)
[2017-08-23 05:43] LABS: PTT PATIENT 60.6 SECONDS (21.0-31.0)
[2017-08-23 05:45] LABS: CALCIUM 8.2 mg/dl (8.5-10.1); CREATININE 0.73 mg/dl (0.60-1.40); PHOSPHORUS 2.8 mg/dl (2.5-4.9); TOTAL PROTEIN 5.4 gm/dl (6.4-8.2)
[2017-08-23] MEDS: SERTRALINE HCL 50 MG TAB PO SCH (07:29)
[2017-08-23] MEDS: SENNA 8.6 MG TAB PO SCH (07:29)
[2017-08-23] MEDS: PANTOprazole SOD 40 MG TAB PO SCH (07:30)
[2017-08-23] MEDS: MULTIVITAMIN TAB PO SCH (07:30)
[2017-08-23] MEDS: GUAIFENESIN 600 MG TABCR PO SCH ×2 (07:30→20:43)
[2017-08-23] MEDS: POLYETHYLENE (MIRALAX) 17 GM PACK PO SCH (07:31)
[2017-08-23] MEDS: FUROSEMIDE 40 MG TAB PO SCH (07:31)
[2017-08-23] MEDS: BISACODYL 5 MG TABEC PO SCH (07:43)
[2017-08-23] MEDS: FERROUS SULFATE 325 MG TAB PO SCH ×2 (07:45→20:43)
[2017-08-23] MEDS: ATORVASTATIN 40 MG TAB PO SCH (07:45)
--- NOTE | 2017-08-23 08:28 | SURGERY PROGRESS NOTE ---
DATE: 08/23/2017 SUBJECTIVE: Mr. Rizo is a 71-year-old male who has a complicated right pleural effusion. I actually had him scheduled for surgery yesterday, but he developed atrial fibrillation with a rapid ventricular response. He is now in the unit and his weight is controlled in the 80s-90s; however, he still has atrial fibrillation. He is on 2 liters of O2 with acceptable saturations. His labs today looked quite good with a white count of 5740 with a hemoglobin of 9.5. His electrolytes are fairly stable except for the fact that his sodium is down to 131 and his albumin is 2.0. I drained his PleurX for about 125 mL of a serous fluid. This is less bloody. We will check a chest x-ray in the morning. At this point, I would hold off performing any intervention in his right chest.
[2017-08-23] MEDS ORDERED: BENAZEPRIL HCL 10 MG TAB PO SCH (09:00)
--- NOTE | 2017-08-23 11:16 | Cardiology Follow-Up ---
Subjective General Date of Service: Aug 23, 2017. Pt evaluation today including: conversation w/ patient, chart review, lab review, review of studies, conversation w/ assessment consultant History of Present Illness The patient is a 71 year old male Allergies Coded Allergies: No Known Allergies (Verified , 08/20/17) Social History Smoking Status: Former Smoker Hx Tobacco Use In Past Year?: No Hx Alcohol Use - Type And Amou: No Hx Substance Use - Type And Am: No Problem List Medical Problems: (1) Alkaline phosphatase elevation Status: Acute (2) Anemia Status: Acute (3) Chest pain Status: Acute (4) Gastritis Status: Acute (5) Pleural effusion, bilateral Status: Acute Review of Systems Respiratory: No shortness of breath, No dyspnea at rest Cardiac: No chest pain, No edema, No palpitations Additional ROS Details: Feels much better back in NSR Physical Exam Vital Signs Last Vital Signs Documentation Date Time Temp Pulse Resp B/P (MAP) Pulse Ox O2 Delivery O2 Flow Rate FiO2 08/23/17 10:00 80 15 123/58 (79) 96 Nasal Cannula 2.0 08/23/17 08:01 36.4 Physical Exam Constitutional: General Apperance: too thin Level of Distress: chronically ill Lungs: Respiratory effort: no dyspnea, pertinent finding Auscultation: no wheezing, no rales/crackles, no rhonchi, decreased breath sounds ( right base) Cardiovascular: Heart Auscultation: RRR, no rubs, no gallops, II/ NAYANA (late peaking murmur of ) Abdomen: Bowel Sounds: normal Inspection & Palpation: soft, non-distended, no tenderness, guarding & rebound Extremities: no edema Assessment and Plan Assessment and Plan Assessment and Plan 1. Empyema s/p pleurex catheter 2. New atrial flutter with RVR 3. Chronic systolic heart failure/ICM EF 35-40% 4. Multivessel CAD 5. Moderate to severe 6. Dysphagia/Unintentional weight loss 7. Anemia Amio IV for 24 hours more Start PO 400mg TID x 5 days then 400mg daily Depending on cause of weight loss/prognosis-- Flutter ablation as an outpt can be considered Heparin drip for now (Plan for OR Friday) and then eventual NOAC Stop Dig restart BB Toprol 25 BID (was on 100mg BID as outpt) d/w intensivists and ok to tele Laboratory Results Last 24 Hours Test 08/22/17 14:22 08/22/17 14:30 08/22/17 21:30 08/23/17 04:58 Sodium Level 132 mmol/L 131 mmol/L Potassium Level 4.6 mmol/L 4.0 mmol/L Chloride Level 97 mmol/L 96 mmol/L Carbon Dioxide Level 34 mmol/L 33 mmol/L Anion Gap 1.0 mmol/L 2.0 mmol/L Blood Urea Nitrogen 9 mg/dl 9 mg/dl Creatinine 0.70 mg/dl 0.73 mg/dl Est Creatinine Clear Calc Drug Dose 94.0 ml/min 90.2 ml/min Estimated GFR () 108.5 106.7 Estimated GFR (Non- 93.6 92.0 BUN/Creatinine Ratio 12.3 12.3 Random Glucose 91 mg/dl 107 mg/dl Calcium Level 8.2 mg/dl 8.2 mg/dl Magnesium Level 1.9 mg/dl 1.8 mg/dl White Blood Count 6.91 K/uL 5.74 K/uL Red Blood Count 4.01 M/uL 4.07 M/uL Hemoglobin 9.6 g/dL 9.5 g/dL Hematocrit 31.6 % 32.2 % Mean Corpuscular Volume 78.8 fL 79.1 fL Mean Corpuscular Hemoglobin 23.9 pg 23.3 pg Mean Corpuscular Hemoglobin Concent 30.4 g/dl 29.5 g/dl Platelet Count 240 K/uL 251 K/uL Mean Platelet Volume 9.6 fL 9.7 fL Neutrophils (%) (Auto) 78.9 % 74.3 % Lymphocytes (%) (Auto) 9.0 % 12.4 % Monocytes (%) (Auto) 9.1 % 8.4 % Eosinophils (%) (Auto) 2.3 % 4.0 % Basophils (%) (Auto) 0.6 % 0.7 % Neutrophils # (Auto) 5.45 K/uL 4.27 K/uL Lymphocytes # (Auto) 0.62 K/uL 0.71 K/uL Monocytes # (Auto) 0.63 K/uL 0.48 K/uL Eosinophils # (Auto) 0.16 K/uL 0.23 K/uL Basophils # (Auto) 0.04 K/uL 0.04 K/uL RDW Standard Deviation 54.4 fL 54.5 fL RDW Coefficient of Variation 18.8 % 18.8 % Immature Granulocyte % (Auto) 0.1 % 0.2 % Immature Granulocyte # (Auto) 0.01 K/uL 0.01 K/uL Prothrombin Time 13.9 SECONDS Prothromb Time International Ratio 1.3 Activated Partial Thromboplast Time 28.4 SECONDS 36.4 SECONDS 60.6 SECONDS Partial Thromboplastin Ratio 1.1 1.4 2.3 Phosphorus Level 2.8 mg/dl Total Bilirubin 0.4 mg/dl Direct Bilirubin 0.1 mg/dl Aspartate Amino Transf (AST/SGOT) 28 U/L Alanine Aminotransferase (ALT/SGPT) 29 U/L Alkaline Phosphatase 173 U/L Total Protein 5.4 gm/dl Albumin 2.0 gm/dl Test 08/23/17 08:00 Pleural Fluid Triglycerides 26 mg/dl
--- NOTE | 2017-08-23 11:19 | Critical Care Progress Note ---
Critical Care Progress Note Date of Service Aug 23, 2017. Attending Dr. Madrigal Subjective The patient denies any symptoms, he does not have any chest pain, no palpitation , no shortness of breath. He felt a little discomfort after draining his Pleurx catheter. Which is understandable. No recurrence of rapid A. fib flutter. He has been in and out of A. flutter but rate controlled. Remains on heparin drip. Objective No events overnight. He is tolerating over all oral intake and the medication. 08/23/2017 exam revealed vital signs are stable, no fever was reported, his heart rate is 80 currently in normal sinus rhythm, no JVP, decreased breath sounds at the right base, abdomen is benign no edema. Neurologically he's intact. Assessment & Plan #1 right sided complex pleural effusion. #2 atrial flutter, rate controlled. #3 exudative pleural effusion thought to be related to recent trauma to the chest after he fell. #4 history of hypertension. #5 cardiomyopathy with EF of 45%. #6 COPD changes noted in the CAT scan. Plan: #1 continue current treatment per Dr. Lancaster. #2 the patient was plan to have VATS per Dr. Lancaster. #3 digoxin and amiodarone. #4 anticoagulations #5Cardiology, appreciate input. #6 discussed with . #7 oral intake. #8 GI prophylaxis. #[address] Camargo, appreciate his input, transfer the patient to stepdown. Case discussed with the staff on rounds and details. CCE and 35 minutes. Data Medications: Current Inpatient Medications Medications (Trade) Dose Ordered Sig/Kaitlynn Route Start Time Stop Time Status Last Admin Dose Admin Acetaminophen (Tylenol Tab) 650 mg Q4H PRN PO 08/18/17 17:30 09/17/17 17:29 08/23/17 04:00 650 MG Magnesium Hydroxide (Milk Of Magnesia Susp) 30 ml Q6H PRN PO 08/18/17 17:30 09/17/17 17:29 Polyethylene (Miralax Powder Packet) 17 gm DAILY PRN PO 08/18/17 17:30 09/17/17 17:29 Ondansetron HCl (Zofran Inj) 4 mg Q6H PRN IV 08/18/17 17:30 09/17/17 17:29 08/22/17 11:11 4 MG Piperacillin Sod/ Tazobactam Sod 3.375 gm/Dextrose 115 ml @ 28.75 mls/ hr Q8H IV 08/19/17 02:00 08/26/17 01:59 08/23/17 08:31 28.75 MLS/HR Miscellaneous Information (Consult) 1 ea UD PRN N/A 08/18/17 17:30 09/17/17 17:29 Guaifenesin (Mucinex Contr Rel Tab) 600 mg Q12 PO 08/18/17 21:00 09/17/17 20:59 08/23/17 07:30 600 MG Tramadol HCl (Ultram Tab) 50 mg Q4H PRN PO 08/19/17 14:30 09/18/17 14:29 08/21/17 15:53 50 MG Hydroxyzine HCl (Vistaril Tab) 25 mg HS PRN PO 08/20/17 00:30 09/19/17 00:29 08/20/17 00:40 25 MG Morphine Sulfate (MoRPHine SULFATE INJ) 1 mg 0630,0930,1830,2130 IV 08/21/17 06:30 08/23/17 21:31 08/21/17 09:58 1 MG Bisacodyl (Dulcolax Tab) 10 mg DAILY PO 08/21/17 10:00 09/20/17 09:59 08/23/17 07:43 10 MG Polyethylene (Miralax Powder Packet) 17 gm DAILY PO 08/21/17 10:00 09/20/17 09:59 08/23/17 07:31 17 GM Bisacodyl (Dulcolax Supp) 10 mg DAILY PRN [place] 08/21/17 10:00 09/20/17 09:59 Acetaminophen (Tylenol Tab) 325 mg DAILY PRN PO 08/22/17 12:45 09/21/17 12:44 Atorvastatin Calcium (Lipitor Tab) 80 mg DAILY PO 08/23/17 09:00 09/22/17 08:59 08/23/17 07:45 80 MG Furosemide (Lasix Tab) 40 mg QAM PO 08/23/17 09:00 09/22/17 08:59 08/23/17 07:31 40 MG Metoprolol Succinate (Toprol Xl Tab) 100 mg BID PO 08/22/17 21:00 09/21/17 20:59 Future Hold Multivitamins (Multivitamin Tab) 1 tab QAM PO 08/23/17 09:00 09/22/17 08:59 08/23/17 07:30 1 TAB Pantoprazole Sodium (Protonix Tab) 40 mg QAM PO 08/23/17 09:00 09/22/17 08:59 08/23/17 07:30 40 MG Senna (Senokot Tab) 8.6 mg QAM PO 08/23/17 09:00 09/22/17 08:59 08/23/17 07:29 8.6 MG Sertraline HCl (Zoloft Tab) 75 mg QAM PO 08/23/17 09:00 09/22/17 08:59 08/23/17 07:29 75 MG Benazepril HCl (Lotensin Tab) 20 mg QAM PO 08/23/17 09:00 09/22/17 08:59 Future Hold Bimatoprost (Lumigan 0.01%) 1 drops HS OP 08/22/17 21:00 09/21/17 20:59 08/22/17 21:19 1 DROPS Ferrous Sulfate (Feosol Tab) 325 mg BID PO 08/22/17 21:00 09/21/17 20:59 08/23/17 07:45 325 MG Amiodarone HCL/ Dextrose 200 ml @ 16.7 mls/hr [id number] IV 08/22/17 19:45 09/21/17 19:44 08/23/17 05:14 16.7 MLS/HR Heparin Sodium/ Dextrose 500 ml @ 20 mls/hr Q24H PRN IV 08/22/17 14:30 09/21/17 14:29 08/22/17 15:23 17 MLS/HR Digoxin (Lanoxin Tab) 0.125 mg DAILY@16 PO 08/23/17 16:00 09/22/17 15:59 Vital Signs: Date Time Temp Pulse Resp B/P (MAP) Pulse Ox O2 Delivery O2 Flow Rate FiO2 08/23/17 10:00 80 15 123/58 (79) 96 Nasal Cannula 2.0 08/23/17 08:01 36.4 96 18 103/66 (78) 95 Nasal Cannula 2.0 08/23/17 08:00 Nasal Cannula 2.0 08/23/17 07:01 87 23 102/56 (71) 92 Nasal Cannula 2.0 08/23/17 06:00 92 20 109/71 (84) 96 Nasal Cannula 2.0 08/23/17 04:00 98 Nasal Cannula 3.0 08/23/17 04:00 36.4 97 17 101/54 (70) 97 Nasal Cannula 3.0 08/23/17 02:00 85 15 96/38 (57) 96 Nasal Cannula 3.0 08/23/17 00:15 97 08/23/17 00:01 36.7 99 20 103/66 (78) 100 Nasal Cannula 3.0 08/22/17 23:59 100 Nasal Cannula 3.0 08/22/17 22:30 89 17 102/68 (79) 100 08/22/17 22:16 87 21 110/80 (90) 99 Nasal Cannula 3.0 08/22/17 20:00 36.5 90 13 97/71 (80) 98 Nasal Cannula 3.0 08/22/17 20:00 Nasal Cannula 3.0 08/22/17 19:53 93 08/22/17 18:04 36.8 115 18 89/61 (70) 99 Nasal Cannula 3.0 08/22/17 16:45 135 23 85/58 (69) 97 08/22/17 16:30 140 17 93/66 (71) 85 08/22/17 16:16 60 22 98/51 (74) 100 08/22/17 16:15 74 22 99 08/22/17 16:00 Mask 5.0 08/22/17 16:00 36.6 143 16 94/59 (71) 98 Nasal Cannula 4.0 08/22/17 16:00 138 26 89/60 (68) 98 08/22/17 15:45 142 22 84/61 (67) 98 08/22/17 15:45 120 08/22/17 15:30 143 22 90/62 (70) 98 08/22/17 15:25 143 23 94/59 (67) 98 08/22/17 15:20 144 21 97/59 (73) 97 08/22/17 15:16 145 35 88/66 (67) 91 08/22/17 15:15 118 18 93 08/22/17 15:10 117 23 121/76 (81) 96 08/22/17 15:05 113 19 106/69 (80) 95 08/22/17 15:00 52 16 89/74 (78) 96 08/22/17 14:55 143 18 96/54 (64) 97 08/22/17 14:50 114 21 96/56 (65) 98 08/22/17 14:48 121 17 80/60 (64) 94 08/22/17 14:45 109 25 107/56 (62) 98 08/22/17 14:40 121 20 94/74 (77) 95 08/22/17 14:39 110 21 83/64 (67) 97 08/22/17 14:35 92 21 87/58 (78) 100 08/22/17 14:30 116 16 88/65 (71) 99 08/22/17 14:25 118 20 88/41 (67) 100 08/22/17 14:23 127 20 75/55 (56) 100 08/22/17 14:20 124 10 96 08/22/17 14:10 36.7 122 16 92/59 (70) 99 Oxymask 5.0 08/22/17 14:10 Mask 5.0 08/22/17 13:50 113 16 80/57 (65) 98 Mask 6 08/22/17 13:40 133 16 71/51 (58) 98 Mask 6 08/22/17 13:30 144 16 87/59 (68) 99 Mask 6 08/22/17 13:20 140 16 91/50 (64) 98 Mask 6 08/22/17 13:05 142 16 79/54 (62) 97 Mask 6 08/22/17 12:57 144 16 82/45 (57) 95 Nasal Cannula 2 08/22/17 12:45 148 16 102/68 (79) 96 Nasal Cannula 2 08/22/17 12:22 36.6 150 18 96/68 (77) 90 Room Air Laboratory Results: Last 24 Hours Test 08/22/17 14:22 08/22/17 14:30 08/22/17 21:30 08/23/17 04:58 Sodium Level 132 mmol/L 131 mmol/L Potassium Level 4.6 mmol/L 4.0 mmol/L Chloride Level 97 mmol/L 96 mmol/L Carbon Dioxide Level 34 mmol/L 33 mmol/L Anion Gap 1.0 mmol/L 2.0 mmol/L Blood Urea Nitrogen 9 mg/dl 9 mg/dl Creatinine 0.70 mg/dl 0.73 mg/dl Est Creatinine Clear Calc Drug Dose 94.0 ml/min 90.2 ml/min Estimated GFR () 108.5 106.7 Estimated GFR (Non- 93.6 92.0 BUN/Creatinine Ratio 12.3 12.3 Random Glucose 91 mg/dl 107 mg/dl Calcium Level 8.2 mg/dl 8.2 mg/dl Magnesium Level 1.9 mg/dl 1.8 mg/dl White Blood Count 6.91 K/uL 5.74 K/uL Red Blood Count 4.01 M/uL 4.07 M/uL Hemoglobin 9.6 g/dL 9.5 g/dL Hematocrit 31.6 % 32.2 % Mean Corpuscular Volume 78.8 fL 79.1 fL Mean Corpuscular Hemoglobin 23.9 pg 23.3 pg Mean Corpuscular Hemoglobin Concent 30.4 g/dl 29.5 g/dl Platelet Count 240 K/uL 251 K/uL Mean Platelet Volume 9.6 fL 9.7 fL Neutrophils (%) (Auto) 78.9 % 74.3 % Lymphocytes (%) (Auto) 9.0 % 12.4 % Monocytes (%) (Auto) 9.1 % 8.4 % Eosinophils (%) (Auto) 2.3 % 4.0 % Basophils (%) (Auto) 0.6 % 0.7 % Neutrophils # (Auto) 5.45 K/uL 4.27 K/uL Lymphocytes # (Auto) 0.62 K/uL 0.71 K/uL Monocytes # (Auto) 0.63 K/uL 0.48 K/uL Eosinophils # (Auto) 0.16 K/uL 0.23 K/uL Basophils # (Auto) 0.04 K/uL 0.04 K/uL RDW Standard Deviation 54.4 fL 54.5 fL RDW Coefficient of Variation 18.8 % 18.8 % Immature Granulocyte % (Auto) 0.1 % 0.2 % Immature Granulocyte # (Auto) 0.01 K/uL 0.01 K/uL Prothrombin Time 13.9 SECONDS Prothromb Time International Ratio 1.3 Activated Partial Thromboplast Time 28.4 SECONDS 36.4 SECONDS 60.6 SECONDS Partial Thromboplastin Ratio 1.1 1.4 2.3 Phosphorus Level 2.8 mg/dl Total Bilirubin 0.4 mg/dl Direct Bilirubin 0.1 mg/dl Aspartate Amino Transf (AST/SGOT) 28 U/L Alanine Aminotransferase (ALT/SGPT) 29 U/L Alkaline Phosphatase 173 U/L Total Protein 5.4 gm/dl Albumin 2.0 gm/dl Test 08/23/17 08:00 Pleural Fluid Triglycerides 26 mg/dl
[2017-08-23] MEDS: AMIODARONE 200 MG TAB PO SCH ×3 (12:04→20:43)
--- NOTE | 2017-08-23 13:21 | Hospitalist Progress Note ---
Hospitalist Progress Note Date of Service Aug 23, 2017. Subjective Pt evaluation today including: conversation w/ patient, physical exam, chart review, lab review, review of studies, review of inpatient medication list Patient seen and evaluated. Reporting feeling much better today then yesterday. HR and BP improved. Mentating appropriately. States CT Surg pulled some fluid but then had some pain. Denies any other complaints. Just feels tired. States he feels that his eating issues and weight loss may be from his dentures. States he has had the same dentures x 15 years and reporting that they do not fit well. Given his weight loss likely they would not fit appropriately. States he was excited to have roast beef the other day but struggled to chew it. States this happens at home and he loses desire to eat. States he sees someone in [place] for his dentures. Recommend that he get a new pair if possible. Constitutional: + fatigue, No fever, No chills ENT: + trouble swallowing (chronic) Respiratory: No cough, No shortness of breath Cardiovascular: No chest pain Abdomen: No pain, No nausea, No vomiting Heme: No abnormal bleeding/bruising Medications Current Inpatient Medications Medications (Trade) Dose Ordered Sig/Kaitlynn Route Start Time Stop Time Status Last Admin Dose Admin Acetaminophen (Tylenol Tab) 650 mg Q4H PRN PO 08/18/17 17:30 09/17/17 17:29 08/23/17 04:00 650 MG Magnesium Hydroxide (Milk Of Magnesia Susp) 30 ml Q6H PRN PO 08/18/17 17:30 09/17/17 17:29 Polyethylene (Miralax Powder Packet) 17 gm DAILY PRN PO 08/18/17 17:30 09/17/17 17:29 Ondansetron HCl (Zofran Inj) 4 mg Q6H PRN IV 08/18/17 17:30 09/17/17 17:29 08/22/17 11:11 4 MG Piperacillin Sod/ Tazobactam Sod 3.375 gm/Dextrose 115 ml @ 28.75 mls/ hr Q8H IV 08/19/17 02:00 08/26/17 01:59 08/23/17 08:31 28.75 MLS/HR Miscellaneous Information (Consult) 1 ea UD PRN N/A 08/18/17 17:30 09/17/17 17:29 Guaifenesin (Mucinex Contr Rel Tab) 600 mg Q12 PO 08/18/17 21:00 09/17/17 20:59 08/23/17 07:30 600 MG Tramadol HCl (Ultram Tab) 50 mg Q4H PRN PO 08/19/17 14:30 09/18/17 14:29 08/21/17 15:53 50 MG Hydroxyzine HCl (Vistaril Tab) 25 mg HS PRN PO 08/20/17 00:30 09/19/17 00:29 08/20/17 00:40 25 MG Morphine Sulfate (MoRPHine SULFATE INJ) 1 mg 0630,0930,1830,2130 IV 08/21/17 06:30 08/23/17 21:31 08/21/17 09:58 1 MG Bisacodyl (Dulcolax Tab) 10 mg DAILY PO 08/21/17 10:00 09/20/17 09:59 08/23/17 07:43 10 MG Polyethylene (Miralax Powder Packet) 17 gm DAILY PO 08/21/17 10:00 09/20/17 09:59 08/23/17 07:31 17 GM Bisacodyl (Dulcolax Supp) 10 mg DAILY PRN [place] 08/21/17 10:00 09/20/17 09:59 Acetaminophen (Tylenol Tab) 325 mg DAILY PRN PO 08/22/17 12:45 09/21/17 12:44 Atorvastatin Calcium (Lipitor Tab) 80 mg DAILY PO 08/23/17 09:00 09/22/17 08:59 08/23/17 07:45 80 MG Furosemide (Lasix Tab) 40 mg QAM PO 08/23/17 09:00 09/22/17 08:59 08/23/17 07:31 40 MG Multivitamins (Multivitamin Tab) 1 tab QAM PO 08/23/17 09:00 09/22/17 08:59 08/23/17 07:30 1 TAB Pantoprazole Sodium (Protonix Tab) 40 mg QAM PO 08/23/17 09:00 09/22/17 08:59 08/23/17 07:30 40 MG Senna (Senokot Tab) 8.6 mg QAM PO 08/23/17 09:00 09/22/17 08:59 08/23/17 07:29 8.6 MG Sertraline HCl (Zoloft Tab) 75 mg QAM PO 08/23/17 09:00 09/22/17 08:59 08/23/17 07:29 75 MG Benazepril HCl (Lotensin Tab) 20 mg QAM PO 08/23/17 09:00 09/22/17 08:59 Future Hold Bimatoprost (Lumigan 0.01%) 1 drops HS OP 08/22/17 21:00 09/21/17 20:59 08/22/17 21:19 1 DROPS Ferrous Sulfate (Feosol Tab) 325 mg BID PO 08/22/17 21:00 09/21/17 20:59 08/23/17 07:45 325 MG Amiodarone HCL/ Dextrose 200 ml @ 16.7 mls/hr [id number] IV 08/22/17 19:45 09/21/17 19:44 08/23/17 05:14 16.7 MLS/HR Heparin Sodium/ Dextrose 500 ml @ 20 mls/hr Q24H PRN IV 08/22/17 14:30 09/21/17 14:29 08/22/17 15:23 17 MLS/HR Amiodarone HCl (Cordarone Tab) 400 mg TID PO 08/23/17 12:00 09/22/17 11:59 08/23/17 12:04 400 MG Metoprolol Succinate (Toprol Xl Tab) 25 mg BID PO 08/23/17 21:00 09/22/17 20:59 Objective Vital Signs Date Time Temp Pulse Resp B/P (MAP) Pulse Ox O2 Delivery O2 Flow Rate FiO2 08/23/17 12:01 36.6 95 20 96/67 (77) 95 Nasal Cannula 2.0 08/23/17 12:00 Nasal Cannula 2.0 08/23/17 10:00 80 15 123/58 (79) 96 Nasal Cannula 2.0 08/23/17 08:01 36.4 96 18 103/66 (78) 95 Nasal Cannula 2.0 08/23/17 08:00 Nasal Cannula 2.0 08/23/17 07:01 87 23 102/56 (71) 92 Nasal Cannula 2.0 08/23/17 06:00 92 20 109/71 (84) 96 Nasal Cannula 2.0 08/23/17 04:00 98 Nasal Cannula 3.0 08/23/17 04:00 36.4 97 17 101/54 (70) 97 Nasal Cannula 3.0 08/23/17 02:00 85 15 96/38 (57) 96 Nasal Cannula 3.0 08/23/17 00:15 97 08/23/17 00:01 36.7 99 20 103/66 (78) 100 Nasal Cannula 3.0 08/22/17 23:59 100 Nasal Cannula 3.0 08/22/17 22:30 89 17 102/68 (79) 100 08/22/17 22:16 87 21 110/80 (90) 99 Nasal Cannula 3.0 08/22/17 20:00 36.5 90 13 97/71 (80) 98 Nasal Cannula 3.0 08/22/17 20:00 Nasal Cannula 3.0 08/22/17 19:53 93 08/22/17 18:04 36.8 115 18 89/61 (70) 99 Nasal Cannula 3.0 08/22/17 16:45 135 23 85/58 (69) 97 08/22/17 16:30 140 17 93/66 (71) 85 08/22/17 16:16 60 22 98/51 (74) 100 08/22/17 16:15 74 22 99 08/22/17 16:00 Mask 5.0 08/22/17 16:00 36.6 143 16 94/59 (71) 98 Nasal Cannula 4.0 08/22/17 16:00 138 26 89/60 (68) 98 08/22/17 15:45 142 22 84/61 (67) 98 08/22/17 15:45 120 08/22/17 15:30 143 22 90/62 (70) 98 08/22/17 15:25 143 23 94/59 (67) 98 08/22/17 15:20 144 21 97/59 (73) 97 08/22/17 15:16 145 35 88/66 (67) 91 08/22/17 15:15 118 18 93 08/22/17 15:10 117 23 121/76 (81) 96 08/22/17 15:05 113 19 106/69 (80) 95 08/22/17 15:00 52 16 89/74 (78) 96 08/22/17 14:55 143 18 96/54 (64) 97 08/22/17 14:50 114 21 96/56 (65) 98 08/22/17 14:48 121 17 80/60 (64) 94 08/22/17 14:45 109 25 107/56 (62) 98 08/22/17 14:40 121 20 94/74 (77) 95 08/22/17 14:39 110 21 83/64 (67) 97 08/22/17 14:35 92 21 87/58 (78) 100 08/22/17 14:30 116 16 88/65 (71) 99 08/22/17 14:25 118 20 88/41 (67) 100 08/22/17 14:23 127 20 75/55 (56) 100 08/22/17 14:20 124 10 96 08/22/17 14:10 36.7 122 16 92/59 (70) 99 Oxymask 5.0 08/22/17 14:10 Mask 5.0 08/22/17 13:50 113 16 80/57 (65) 98 Mask 6 08/22/17 13:40 133 16 71/51 (58) 98 Mask 6 08/22/17 13:30 144 16 87/59 (68) 99 Mask 6 08/22/17 13:20 140 16 91/50 (64) 98 Mask 6 Physical Exam General Appearance: no apparent distress, + thin Neck: supple, no JVD, trachea midline Respiratory/Chest: no respiratory distress, no accessory muscle use, + decreased breath sounds (at bases b/l) Cardiovascular: regular rate, rhythm, + systolic murmur Abdomen: normal bowel sounds, non tender Extremities: no pedal edema, no calf tenderness Neurologic/Psychiatric: alert Skin: normal color, warm/dry Laboratory Results Last 24 Hours Test 08/22/17 14:22 08/22/17 14:30 08/22/17 21:30 08/23/17 04:58 Sodium Level 132 mmol/L 131 mmol/L Potassium Level 4.6 mmol/L 4.0 mmol/L Chloride Level 97 mmol/L 96 mmol/L Carbon Dioxide Level 34 mmol/L 33 mmol/L Anion Gap 1.0 mmol/L 2.0 mmol/L Blood Urea Nitrogen 9 mg/dl 9 mg/dl Creatinine 0.70 mg/dl 0.73 mg/dl Est Creatinine Clear Calc Drug Dose 94.0 ml/min 90.2 ml/min Estimated GFR () 108.5 106.7 Estimated GFR (Non- 93.6 92.0 BUN/Creatinine Ratio 12.3 12.3 Random Glucose 91 mg/dl 107 mg/dl Calcium Level 8.2 mg/dl 8.2 mg/dl Magnesium Level 1.9 mg/dl 1.8 mg/dl White Blood Count 6.91 K/uL 5.74 K/uL Red Blood Count 4.01 M/uL 4.07 M/uL Hemoglobin 9.6 g/dL 9.5 g/dL Hematocrit 31.6 % 32.2 % Mean Corpuscular Volume 78.8 fL 79.1 fL Mean Corpuscular Hemoglobin 23.9 pg 23.3 pg Mean Corpuscular Hemoglobin Concent 30.4 g/dl 29.5 g/dl Platelet Count 240 K/uL 251 K/uL Mean Platelet Volume 9.6 fL 9.7 fL Neutrophils (%) (Auto) 78.9 % 74.3 % Lymphocytes (%) (Auto) 9.0 % 12.4 % Monocytes (%) (Auto) 9.1 % 8.4 % Eosinophils (%) (Auto) 2.3 % 4.0 % Basophils (%) (Auto) 0.6 % 0.7 % Neutrophils # (Auto) 5.45 K/uL 4.27 K/uL Lymphocytes # (Auto) 0.62 K/uL 0.71 K/uL Monocytes # (Auto) 0.63 K/uL 0.48 K/uL Eosinophils # (Auto) 0.16 K/uL 0.23 K/uL Basophils # (Auto) 0.04 K/uL 0.04 K/uL RDW Standard Deviation 54.4 fL 54.5 fL RDW Coefficient of Variation 18.8 % 18.8 % Immature Granulocyte % (Auto) 0.1 % 0.2 % Immature Granulocyte # (Auto) 0.01 K/uL 0.01 K/uL Prothrombin Time 13.9 SECONDS Prothromb Time International Ratio 1.3 Activated Partial Thromboplast Time 28.4 SECONDS 36.4 SECONDS 60.6 SECONDS Partial Thromboplastin Ratio 1.1 1.4 2.3 Phosphorus Level 2.8 mg/dl Total Bilirubin 0.4 mg/dl Direct Bilirubin 0.1 mg/dl Aspartate Amino Transf (AST/SGOT) 28 U/L Alanine Aminotransferase (ALT/SGPT) 29 U/L Alkaline Phosphatase 173 U/L Total Protein 5.4 gm/dl Albumin 2.0 gm/dl Test 08/23/17 08:00 Pleural Fluid Triglycerides 26 mg/dl Assessment and Plan This is a 71 yo M with PMHx of dilated cardiomyopathy with severe left ventricular dysfunction with EF equal to 45% in 08/2015, CAD s/p 3 DEZ to diagonal and distal RCA, and PDA in 03/2016, mild aortic stenosis hypertension, hyperlipidemia, elevated alkaline phosphatase, GERD, diverticulosis, depression , weight loss of 40 pounds in the past year, dysphagia, iron deficiency anemia, who presents after right thoracentesis performed by Dr. Lancaster on 08/18/17. Thoracic fluid was found to be purulent so he has been directly admitted to the hospital for IV antibiotics for empyema. R Complex Empyema and Complicated Pleural Effusion with R Pleur-X: - Continue Zosyn - Continue supportive care with pulmonary toilet, ambulation, deep breathing - CT Surg following - drained for catheter this AM; holding on further surgical intervention - planning on VATS SVT and Paroxysmal Atrial Fibrillation/Flutter: - on 08/22 patient went into SVT in pre-op. Adenosine 6 mg and 12 mg with converted to flutter and resulted hypotension from rhythm. Underwent unsuccessful cardioversion. Initially placed in ICU - Continue Amiodarone gtt x 24 hrs and initiate Amiodarone 400 mg TID x 5 days then 400 mg daily - Plan to continue heparin gtt for possible VATS procedure Friday and consideration to convert to NOAC - Digoxin D/C'd and initiate Toprol XL 25 mg BID - Cardiology following - recommendations appreciated Chronic Systolic CHF/Dilated Cardiomyopathy with Severe LV Dysfunction - EF 45% : CAD S/P PCI - HTN/HLD: - Toprol XL 25 mg BID, Atorvastatin 80 mg daily - ASA on hold - Lasix 40 mg daily Dysphagia/Unintentional Weight Loss/GERD/RUQ Pain: - Discussed with patient who states his Dentures are 15 years old and he is having difficulty chewing with them as the contour isn't a good fit in his mouth. States he notices he is only having soft foods and sometimes this doesn' t make him want to eat - Will adjust diet to dental soft in hospital - GI followed and S/O - recommend to continue Protonix - FILLING TECHNICIAN following - recommending moist regular diet Constipation: - Continue bowel regimen with Miralax, Dulcolax, Senna; PRN Suppositories DVT Prophylaxis: Heparin gtt - likely conversion to NOAC pending surgery Code Status: FULL RESUSCITATION Disposition: - Possible VATS on Friday Continued [facility] stay due to: multiple IV medications needed
[2017-08-23] MEDS ORDERED: SODIUM CHLORIDE 0.9% 10ML FLUSH IV ONE (15:02)
[2017-08-23] MEDS ORDERED: ATROPINE SULFATE 0.1 MG/ML 10 ML SYR IV ONE (15:02)
[2017-08-23] MEDS ORDERED: SODIUM BICARB 8.4% INJ 50 MEQ/50 ML SYR IV ONE (15:02)
[2017-08-23] MEDS ORDERED: DIGOXIN 0.125 MG TAB PO SCH (16:00)
[2017-08-23] MEDS: HEPARIN 25,000 UNIT/500ML D5W 500 ML IV PRN (17:58)
[2017-08-23] MEDS ORDERED: NURSING VERBAL MED ORDER ONE ×2 (19:00→19:30)
--- NOTE | 2017-08-23 20:21 | Progress Note ---
Post ICU Progress Note Date & Time Aug 23, 2017 at 20:15 Vital Signs Vital Signs Past 12 Hours Date Time Temp Pulse Resp B/P (MAP) Pulse Ox O2 Delivery O2 Flow Rate FiO2 08/23/17 19:06 36.5 86 18 122/55 (77) 98 Nasal Cannula 1.5 08/23/17 16:00 Nasal Cannula 2.0 08/23/17 15:25 36.5 85 21 127/73 (91) 97 Nasal Cannula 1.5 08/23/17 14:05 36.6 91 23 96 2.0 08/23/17 14:01 91 23 120/67 (84) 96 Nasal Cannula 2.0 08/23/17 12:01 36.6 95 20 96/67 (77) 95 Nasal Cannula 2.0 08/23/17 12:00 Nasal Cannula 2.0 08/23/17 10:00 80 15 123/58 (79) 96 Nasal Cannula 2.0 Notes Mental Status: alert / awake Nausea / Vomiting: adequately controlled Pain: adequately controlled Airway Patency, RR, SpO2: stable & adequate BP & HR: stable & adequate Patient was transferred to the ICU after developing A. fib/flutter which was refractory to multiple treatments including cardioversion. Patient received IV Lopressor as well as amiodarone bolus with drip. He eventually received digitoxin which did seem to control his rate. He maintained in the ICU overnight and was downgraded to telemetry floor earlier today. On evaluation today, the patient is resting comfortably. He reports feeling much better at this time. Apparently, the patient converted to NSR at some point today. He reports that he had eaten better today and is hopeful for his procedure on Friday. Consider outpatient follow up in 1 to 2 weeks with: Thoracic Surgery, PCP Repeat imaging needed: Per admitting/surgical teams Follow up cultures: None Reviewed progress notes, labs, and inpatient medication list Continue current management Additional recommendations: None at this point. Thank you for allowing us to participate in the care of this patient. At this time, Critical Care Services will sign off. Please feel free to reconsult as needed
[2017-08-23] MEDS: METOPROLOL SUCC 25MG EXT REL TAB PO SCH (20:43)
[2017-08-23] MEDS: BIMATOPROST 0.01% OP SOLN 2.5 ML BTL OP SCH (21:22)
[2017-08-24] MEDS: PIPERACILL/TAZOBAC IV 3.375 GM in DEXTROSE 5% 100ML 100 ML IV SCH ×3 (02:01→18:25)
[2017-08-24 04:03] VITALS: BP 115/67; PULSE 71; TEMP 36.7; O2SAT 97
[2017-08-24] MEDS: AMIODARONE / D5W 200 ML IV SCH ×2 (05:23→16:36)
[2017-08-24 06:20] LABS: PTT PATIENT 37.5 SECONDS (21.0-31.0)
--- NOTE | 2017-08-24 07:41 | DIAGNOSTIC IMAGING REPORT ---
CHEST ONE VIEW PORTABLE CLINICAL HISTORY: Pleural effusion. COMPARISON STUDY: Chest radiograph August 22, 2017. FINDINGS: A right pleural catheter is in place. There is no pneumothorax. Cardiomegaly is unchanged. A small to moderate right pleural effusion has slightly increased. There is a small left pleural effusion. Diffuse interstitial thickening persists. IMPRESSION: 1. Right pleural catheter in place. Small to moderate right pleural effusion, slightly increased since prior exam of August 22, 2017. 2. Small left pleural effusion. 3. Persistent interstitial thickening which favors pulmonary edema. Electronically signed by: Lonine Almanza M.D. 08/24/2017 7:39 AM Dictated Date/Time: 08/24/2017 7:37 AM
[2017-08-24] MEDS ORDERED: HEPARIN IV BOLUS 4,500 UNIT in SYRINGE 0 ML IV ONE (07:45)
[2017-08-24 08:00] VITALS: BP 124/68; PULSE 69; TEMP 36.6; O2SAT 100
--- NOTE | 2017-08-24 08:27 | SURGERY PROGRESS NOTE ---
DATE: 08/24/2017 SUBJECTIVE: Mr. Rizo was seen today. He has now moved down to telemetry. He has been in a sinus rhythm. He is on an amiodarone drip. He looks and feels better. His x-ray does not look better, however. I had a long talk with the patient. I discussed with the staff. I believe we should probably go ahead and proceed with the decortication tomorrow. I am going to keep him on his amiodarone drip. We can transition him to oral medications after surgery. He will have to go back to the ICU after we operate tomorrow.
[2017-08-24] MEDS: BISACODYL 5 MG TABEC PO SCH (09:00)
[2017-08-24] MEDS: SENNA 8.6 MG TAB PO SCH (09:28)
[2017-08-24] MEDS: GUAIFENESIN 600 MG TABCR PO SCH ×2 (09:29→19:52)
[2017-08-24] MEDS: PANTOprazole SOD 40 MG TAB PO SCH (09:29)
[2017-08-24] MEDS: ATORVASTATIN 40 MG TAB PO SCH (09:29)
[2017-08-24] MEDS: MULTIVITAMIN TAB PO SCH (09:29)
[2017-08-24] MEDS: FERROUS SULFATE 325 MG TAB PO SCH ×2 (09:29→19:51)
[2017-08-24] MEDS: METOPROLOL SUCC 25MG EXT REL TAB PO SCH ×2 (09:29→19:51)
[2017-08-24] MEDS: SERTRALINE HCL 50 MG TAB PO SCH (09:29)
[2017-08-24] MEDS: POLYETHYLENE (MIRALAX) 17 GM PACK PO SCH (09:30)
[2017-08-24] MEDS: AMIODARONE 200 MG TAB PO SCH ×2 (09:30→13:45)
[2017-08-24] MEDS: FUROSEMIDE 40 MG TAB PO SCH (09:30)
[2017-08-24] MEDS ORDERED: HEPARIN IV BOLUS 4,500 UNIT in SYRINGE 0 ML IV SCH (10:00)
--- NOTE | 2017-08-24 10:37 | Cardiology Follow-Up ---
Subjective General Date of Service: Aug 24, 2017. Pt evaluation today including: conversation w/ patient, chart review, lab review, review of studies History of Present Illness The patient is a 71 year old male Allergies Coded Allergies: No Known Allergies (Verified , 08/20/17) Social History Smoking Status: Former Smoker Hx Tobacco Use In Past Year?: No Hx Alcohol Use - Type And Amou: No Hx Substance Use - Type And Am: No Problem List Medical Problems: (1) Alkaline phosphatase elevation Status: Acute (2) Anemia Status: Acute (3) Chest pain Status: Acute (4) Gastritis Status: Acute (5) Pleural effusion, bilateral Status: Acute Review of Systems Respiratory: + cough, + shortness of breath, + dyspnea on exertion, No dyspnea at rest Cardiac: No chest pain, No edema, No palpitations Physical Exam Vital Signs Last Vital Signs Documentation Date Time Temp Pulse Resp B/P (MAP) Pulse Ox O2 Delivery O2 Flow Rate FiO2 08/24/17 08:06 Nasal Cannula 2.0 08/24/17 08:00 36.6 69 20 124/68 (86) 100 Physical Exam Constitutional: General Apperance: too thin Level of Distress: chronically ill Lungs: Respiratory effort: no dyspnea, pertinent finding Auscultation: no wheezing, no rales/crackles, no rhonchi, decreased breath sounds ( right base > left base) Cardiovascular: Heart Auscultation: RRR, no rubs, no gallops, II/ NAYANA (late peaking murmur of ) Abdomen: Bowel Sounds: normal Inspection & Palpation: soft, non-distended, no tenderness, guarding & rebound Extremities: no edema Assessment and Plan Assessment and Plan Assessment and Plan 1. Empyema s/p pleurex catheter 2. New atrial flutter with RVR 3. Chronic systolic heart failure/ICM EF 35-40% 4. Multivessel CAD 5. Moderate to severe 6. Dysphagia/Unintentional weight loss 7. Anemia Amio IV continued through planned sx tomorrow Start PO 400mg TID x 5 days then 400mg daily Depending on cause of weight loss/prognosis-- Flutter ablation as an outpt can be considered Heparin drip for now (Plan for OR Friday) and then eventual NOAC Stopped Dig 08/23 restarted BB Toprol 25 BID (was on 100mg BID as outpt)--HR and BP ok d/w hospitalists Laboratory Results Last 24 Hours Test 08/24/17 05:26 Activated Partial Thromboplast Time 37.5 SECONDS Partial Thromboplastin Ratio 1.4
[2017-08-24] MEDS ORDERED: [UNRECOGNIZED DRUG - REMARK] ONE (11:00)
[2017-08-24 11:58] VITALS: BP 135/64; PULSE 64; TEMP 36.5; O2SAT 99
[2017-08-24] MEDS ORDERED: NURSING VERBAL MED ORDER ONE ×2 (12:45→19:00)
--- NOTE | 2017-08-24 13:50 | Hospitalist Progress Note ---
Hospitalist Progress Note Date of Service Aug 24, 2017. Subjective Pt evaluation today including: conversation w/ patient, conversation w/ family , physical exam, chart review, lab review, review of studies, review of inpatient medication list Patient sitting up in bedside chair. States he feels generally well. No further tachycardias/flutter/a fib. Feeling well but is a little disappointed that he keeps reaccumulating. Tolerating Amiodarone gtt and plans to continue until after procedure hopefully tomorrow. States dental soft diet is helping his eating. Updated daughter Vanita over the phone. Additional Comments: General/Constitutional: Denies fever/chills, weight loss ENT: + chronic dysphagia; Denies nasal drainage, sore throat Cardiovascular: Denies chest pain, palpitations, edema Respiratory: Denies cough, SOB GI: Denies nausea, vomiting, abdominal pain, constipation, diarrhea, melena/ hematochezia : Denies dysuria, frequency, hematuria Musculoskeletal: Denies joint/muscle aches, weakness, swelling Neurologic: Denies dizziness/lightheadedness Hematologic/Lymphatic: Denies bleeding/clotting abnormalities Skin: Denies rash Medications Current Inpatient Medications Medications (Trade) Dose Ordered Sig/Kaitlynn Route Start Time Stop Time Status Last Admin Dose Admin Acetaminophen (Tylenol Tab) 650 mg Q4H PRN PO 08/18/17 17:30 09/17/17 17:29 08/23/17 04:00 650 MG Magnesium Hydroxide (Milk Of Magnesia Susp) 30 ml Q6H PRN PO 08/18/17 17:30 09/17/17 17:29 Polyethylene (Miralax Powder Packet) 17 gm DAILY PRN PO 08/18/17 17:30 09/17/17 17:29 Ondansetron HCl (Zofran Inj) 4 mg Q6H PRN IV 08/18/17 17:30 09/17/17 17:29 08/22/17 11:11 4 MG Piperacillin Sod/ Tazobactam Sod 3.375 gm/Dextrose 115 ml @ 28.75 mls/ hr Q8H IV 08/19/17 02:00 08/26/17 01:59 08/24/17 09:40 28.75 MLS/HR Miscellaneous Information (Consult) 1 ea UD PRN N/A 08/18/17 17:30 09/17/17 17:29 Guaifenesin (Mucinex Contr Rel Tab) 600 mg Q12 PO 08/18/17 21:00 09/17/17 20:59 08/24/17 09:29 600 MG Tramadol HCl (Ultram Tab) 50 mg Q4H PRN PO 08/19/17 14:30 09/18/17 14:29 08/21/17 15:53 50 MG Hydroxyzine HCl (Vistaril Tab) 25 mg HS PRN PO 08/20/17 00:30 09/19/17 00:29 08/20/17 00:40 25 MG Bisacodyl (Dulcolax Tab) 10 mg DAILY PO 08/21/17 10:00 09/20/17 09:59 08/24/17 09:00 10 MG Polyethylene (Miralax Powder Packet) 17 gm DAILY PO 08/21/17 10:00 09/20/17 09:59 08/24/17 09:30 17 GM Bisacodyl (Dulcolax Supp) 10 mg DAILY PRN [place] 08/21/17 10:00 09/20/17 09:59 Acetaminophen (Tylenol Tab) 325 mg DAILY PRN PO 08/22/17 12:45 09/21/17 12:44 Atorvastatin Calcium (Lipitor Tab) 80 mg DAILY PO 08/23/17 09:00 09/22/17 08:59 08/24/17 09:29 80 MG Furosemide (Lasix Tab) 40 mg QAM PO 08/23/17 09:00 09/22/17 08:59 08/24/17 09:30 40 MG Multivitamins (Multivitamin Tab) 1 tab QAM PO 08/23/17 09:00 09/22/17 08:59 08/24/17 09:29 1 TAB Pantoprazole Sodium (Protonix Tab) 40 mg QAM PO 08/23/17 09:00 09/22/17 08:59 08/24/17 09:29 40 MG Senna (Senokot Tab) 8.6 mg QAM PO 08/23/17 09:00 09/22/17 08:59 08/24/17 09:28 8.6 MG Sertraline HCl (Zoloft Tab) 75 mg QAM PO 08/23/17 09:00 09/22/17 08:59 08/24/17 09:29 75 MG Benazepril HCl (Lotensin Tab) 20 mg QAM PO 08/23/17 09:00 09/22/17 08:59 Future Hold Bimatoprost (Lumigan 0.01%) 1 drops HS OP 08/22/17 21:00 09/21/17 20:59 08/23/17 21:22 1 DROPS Ferrous Sulfate (Feosol Tab) 325 mg BID PO 08/22/17 21:00 09/21/17 20:59 08/24/17 09:29 325 MG Amiodarone HCL/ Dextrose 200 ml @ 16.7 mls/hr [id number] IV 08/22/17 19:45 08/25/17 23:59 08/24/17 05:23 16.7 MLS/HR Heparin Sodium/ Dextrose 500 ml @ 23 mls/hr [id number] PRN IV 08/22/17 14:30 09/21/17 14:29 08/23/17 17:58 20 MLS/HR Amiodarone HCl (Cordarone Tab) 400 mg TID PO 08/23/17 12:00 09/22/17 11:59 08/24/17 09:30 400 MG Metoprolol Succinate (Toprol Xl Tab) 25 mg BID PO 08/23/17 21:00 09/22/17 20:59 08/24/17 09:29 25 MG Objective Vital Signs Date Time Temp Pulse Resp B/P (MAP) Pulse Ox O2 Delivery O2 Flow Rate FiO2 08/24/17 12:15 Nasal Cannula 2.0 08/24/17 11:58 36.5 64 20 135/64 (87) 99 Nasal Cannula 2.0 08/24/17 08:06 Nasal Cannula 2.0 08/24/17 08:00 36.6 69 20 124/68 (86) 100 Nasal Cannula 2.0 08/24/17 04:03 36.7 71 18 115/67 (83) 97 Nasal Cannula 2.0 08/24/17 04:02 Nasal Cannula 2.0 08/24/17 00:00 Nasal Cannula 2.0 08/23/17 23:51 36.5 65 18 104/63 (77) 97 Nasal Cannula 2.0 08/23/17 20:00 Nasal Cannula 2.0 1/27/18 19:06 36.5 86 18 122/55 (77) 98 Nasal Cannula 1.5 08/23/17 16:00 Nasal Cannula 2.0 08/23/17 15:25 36.5 85 21 127/73 (91) 97 Nasal Cannula 1.5 08/23/17 14:05 36.6 91 23 96 2.0 08/23/17 14:01 91 23 120/67 (84) 96 Nasal Cannula 2.0 Physical Exam Notes: General Appearance: WDWN in NAD; thin HEENT: Head is normocephalic/atraumatic; Mucous membranes moist; Pharynx negative for exudate/lesions; Edentulous Neck: Supple; Trachea midline; Neg JVD; Neg lymphadenopathy Heart: RRR with systolic murmur Lungs: CTA in all lung hartmann bilaterally but diminished at bases - takes short inspirations; Respirations unlabored; Neg accessory muscle use; R lower lung field PleurX Abdomen: Soft, non-tender, non-distended; Positive BS x 4 quadrants Extremities: Neg cyanosis or edema Neurological: Speech is mumbled due to no teeth but clear and appropriate; Neg focal neurologic deficits Psychiatric: Appropriate mood/affect Skin: + mildly erythematous, non-puritic square on R chest appears to be from pacer pad placement/contact dermatitis; Normal Color; Warm/Dry Laboratory Results Last 24 Hours Test 08/24/17 05:26 Activated Partial Thromboplast Time 37.5 SECONDS Partial Thromboplastin Ratio 1.4 Assessment and Plan This is a 71 yo M with PMHx of dilated cardiomyopathy with severe left ventricular dysfunction with EF equal to 45% in 08/2015, CAD s/p 3 DEZ to diagonal and distal RCA, and PDA in 03/2016, mild aortic stenosis hypertension, hyperlipidemia, elevated alkaline phosphatase, GERD, diverticulosis, depression , weight loss of 40 pounds in the past year, dysphagia, iron deficiency anemia, who presents after right thoracentesis performed by Dr. Lancaster on 08/18/17. Thoracic fluid was found to be purulent so he has been directly admitted to the hospital for IV antibiotics for empyema. R Complex Empyema and Complicated Pleural Effusion with R Pleur-X: - Continue Zosyn - Continue supportive care with pulmonary toilet, ambulation, deep breathing - CT Surg following - appreciate recommendations - CXR with reaccumulation - planning for OR tomorrow 08/25 SVT and Paroxysmal Atrial Fibrillation/Flutter: NSR Currently - on 08/22 patient went into SVT in pre-op. Adenosine 6 mg and 12 mg with converted to flutter and resulted hypotension from rhythm. Underwent unsuccessful cardioversion; Spontaneously converted to NSR on 08/23 and no further arrhythmias - Continue Amiodarone gtt until after surgical procedure and initiate Amiodarone 400 mg TID x 5 days then 400 mg daily - Plan to continue heparin gtt for possible VATS procedure Friday and consideration to convert to NOAC -- Discussed with patient who is in agreement for anticoagulation - Digoxin D/C'd and initiate Toprol XL 25 mg BID - Cardiology following - recommendations appreciated - plan as above Chronic Systolic CHF/Dilated Cardiomyopathy with Severe LV Dysfunction - EF 45% : CAD S/P PCI - HTN/HLD: - Toprol XL 25 mg BID, Atorvastatin 80 mg daily - ASA on hold - Lasix 40 mg daily Dysphagia/Unintentional Weight Loss/GERD/RUQ Pain: - Ease of eating improved with dental soft diet - discussed with daughter as well and states they are making arrangements for new dentures -- Given weight loss likely needs to fitting - Dental soft diet - GI followed and S/O - recommend to continue Protonix - [employer] following - recommending moist regular diet Constipation: - Continue bowel regimen with Miralax, Dulcolax, Senna; PRN Suppositories DVT Prophylaxis: Heparin gtt - likely conversion to NOAC pending surgery Code Status: FULL RESUSCITATION Disposition: - Possible VATS on Friday - Updated daughter over the phone; She spoke with Dr. Lancaster as well this AM Continued [facility] stay due to: multiple IV medications needed Discharge planning: home
[2017-08-24 15:09] VITALS: BP 112/61; PULSE 63; TEMP 36.8; O2SAT 93
--- NOTE | 2017-08-24 16:23 | Progress Note ---
Progress Note Date of Service Aug 24, 2017. Progress Note Mr. Rizo is a 71 year old gentleman who has and empyema and was scheduled for a right thoracoscopy and decortication last Friday. He was noticed by Dr. Prieto to have a supraventricular dysrhythmia with a rate of 150 and the case was cancelled and the patient was transferred to the ICU. The diagnosis was atrial flutter with a RVR and he was placed on amiodarone. The patient is now stable in the PCU and is resting comfortably breathing room air and not in acute distress. His other comorbidities include chronic systolic heart failure, multivessel coronary artery disease, 3 coronary stents, mild/mod hypertension , HLD, dysphagia. He has full dentures, his airway is a mallampatti 1 and his heart and lung exams were RRR, grade I/ sustolic murmur, non-radiating, lungs clear except in the right mid and lower lung hartmann where the breath sounds were absent. Mr Rizo is a go for tomorrow's surgery.
[2017-08-24] MEDS: HEPARIN 25,000 UNIT/500ML D5W 500 ML IV PRN (16:37)
--- NOTE | 2017-08-24 16:46 | Pulmonology Progress Note ---
Pulmonary Progress Note Date of Service Aug 24, 2017. Attending Dr. Madrigal Subjective The patient remains asymptomatic from Caleb standpoint. He does have occasional elevated heart rate however he's been rate controlled with amiodarone. He continued to be on heparin drip. Objective 08/24/2017 physical exam revealed stable vital signs, no fever, no JVP, damage breath sounds bilaterally, minimal crackles on the left base, remains in irregularly irregular heartbeat, abdomen is benign, no edema. Neurologically he 's intact. Assessment & Plan #1 persistent right-sided pleural effusion with status post Pleurx catheter in place. My thoughts, this fluid are related to recent trauma and possibly a remnant of hemothorax. Extensive workup did not reveal a cause. I doubt that the patient has pneumonia or parapneumonic effusion. #2 atrial flutter, refractory to cardioversion, currently on amiodarone a well- controlled. And on heparin drip. #3 COPD by CAT scan findings. Plan: #[address] Lancaster, appreciate his input. #2 appreciate cardiology input. #3 the patient will need VATS for definitive therapy. His pleural effusion likely thick like Jell-O and will not resolve spontaneously or by Pleurx catheter. Decortication would be the next step. #4 amiodarone and heparin drip. #5 medically clear from pulmonary standpoint to the OR for VATS. #6 although the patient does not have any evidence of infectious process, continue with Zosyn prophylactically for another day or 2. Then stop it. Thank you Data Medications: Current Inpatient Medications Medications (Trade) Dose Ordered Sig/Kaitlynn Route Start Time Stop Time Status Last Admin Dose Admin Acetaminophen (Tylenol Tab) 650 mg Q4H PRN PO 08/18/17 17:30 09/17/17 17:29 08/23/17 04:00 650 MG Magnesium Hydroxide (Milk Of Magnesia Susp) 30 ml Q6H PRN PO 08/18/17 17:30 09/17/17 17:29 Polyethylene (Miralax Powder Packet) 17 gm DAILY PRN PO 08/18/17 17:30 09/17/17 17:29 Ondansetron HCl (Zofran Inj) 4 mg Q6H PRN IV 08/18/17 17:30 09/17/17 17:29 08/22/17 11:11 4 MG Piperacillin Sod/ Tazobactam Sod 3.375 gm/Dextrose 115 ml @ 28.75 mls/ hr Q8H IV 08/19/17 02:00 08/26/17 01:59 08/24/17 09:40 28.75 MLS/HR Miscellaneous Information (Consult) 1 ea UD PRN N/A 08/18/17 17:30 09/17/17 17:29 Guaifenesin (Mucinex Contr Rel Tab) 600 mg Q12 PO 08/18/17 21:00 09/17/17 20:59 08/24/17 09:29 600 MG Tramadol HCl (Ultram Tab) 50 mg Q4H PRN PO 08/19/17 14:30 09/18/17 14:29 08/21/17 15:53 50 MG Hydroxyzine HCl (Vistaril Tab) 25 mg HS PRN PO 08/20/17 00:30 09/19/17 00:29 08/20/17 00:40 25 MG Bisacodyl (Dulcolax Tab) 10 mg DAILY PO 08/21/17 10:00 09/20/17 09:59 08/24/17 09:00 10 MG Polyethylene (Miralax Powder Packet) 17 gm DAILY PO 08/21/17 10:00 09/20/17 09:59 08/24/17 09:30 17 GM Bisacodyl (Dulcolax Supp) 10 mg DAILY PRN [place] 08/21/17 10:00 09/20/17 09:59 Acetaminophen (Tylenol Tab) 325 mg DAILY PRN PO 08/22/17 12:45 09/21/17 12:44 Atorvastatin Calcium (Lipitor Tab) 80 mg DAILY PO 08/23/17 09:00 09/22/17 08:59 08/24/17 09:29 80 MG Furosemide (Lasix Tab) 40 mg QAM PO 08/23/17 09:00 09/22/17 08:59 08/24/17 09:30 40 MG Multivitamins (Multivitamin Tab) 1 tab QAM PO 08/23/17 09:00 09/22/17 08:59 08/24/17 09:29 1 TAB Pantoprazole Sodium (Protonix Tab) 40 mg QAM PO 08/23/17 09:00 09/22/17 08:59 08/24/17 09:29 40 MG Senna (Senokot Tab) 8.6 mg QAM PO 08/23/17 09:00 09/22/17 08:59 08/24/17 09:28 8.6 MG Sertraline HCl (Zoloft Tab) 75 mg QAM PO 08/23/17 09:00 09/22/17 08:59 08/24/17 09:29 75 MG Benazepril HCl (Lotensin Tab) 20 mg QAM PO 08/23/17 09:00 09/22/17 08:59 Future Hold Bimatoprost (Lumigan 0.01%) 1 drops HS OP 08/22/17 21:00 09/21/17 20:59 08/23/17 21:22 1 DROPS Ferrous Sulfate (Feosol Tab) 325 mg BID PO 08/22/17 21:00 09/21/17 20:59 08/24/17 09:29 325 MG Amiodarone HCL/ Dextrose 200 ml @ 16.7 mls/hr [id number] IV 08/22/17 19:45 08/25/17 23:59 08/24/17 16:36 16.7 MLS/HR Heparin Sodium/ Dextrose 500 ml @ 23 mls/hr [id number] PRN IV 08/22/17 14:30 09/21/17 14:29 08/24/17 16:37 23 MLS/HR Amiodarone HCl (Cordarone Tab) 400 mg TID PO 08/23/17 12:00 09/22/17 11:59 08/24/17 13:45 400 MG Metoprolol Succinate (Toprol Xl Tab) 25 mg BID PO 08/23/17 21:00 09/22/17 20:59 08/24/17 09:29 25 MG I & O: 24-Hour Column 08/25/17 08:00 Intake Total 402 ml Output Total 1175 ml Balance -773 ml Vital Signs: Date Time Temp Pulse Resp B/P (MAP) Pulse Ox O2 Delivery O2 Flow Rate FiO2 08/24/17 15:09 36.8 63 23 112/61 (78) 93 Room Air 08/24/17 12:15 Nasal Cannula 2.0 08/24/17 11:58 36.5 64 20 135/64 (87) 99 Nasal Cannula 2.0 08/24/17 08:06 Nasal Cannula 2.0 08/24/17 08:00 36.6 69 20 124/68 (86) 100 Nasal Cannula 2.0 08/24/17 04:03 36.7 71 18 115/67 (83) 97 Nasal Cannula 2.0 08/24/17 04:02 Nasal Cannula 2.0 08/24/17 00:00 Nasal Cannula 2.0 08/23/17 23:51 36.5 65 18 104/63 (77) 97 Nasal Cannula 2.0 08/23/17 20:00 Nasal Cannula 2.0 08/23/17 19:06 36.5 86 18 122/55 (77) 98 Nasal Cannula 1.5 Laboratory Results: Last 24 Hours Test 08/24/17 05:26 08/24/17 15:56 Activated Partial Thromboplast Time 37.5 SECONDS 50.0 SECONDS Partial Thromboplastin Ratio 1.4 1.9
[2017-08-24 19:17] VITALS: BP 118/64; PULSE 59; TEMP 36.6; O2SAT 93
[2017-08-24] MEDS: BIMATOPROST 0.01% OP SOLN 2.5 ML BTL OP SCH (19:52)
[2017-08-24 23:10] VITALS: BP 143/67; PULSE 58; TEMP 37.4; O2SAT 91
[2017-08-25] VITALS (32 sets, daily range): BP systolic 58–147; BP diastolic 22–85; PULSE 48–65; TEMP 36.4–36.8; O2SAT 90–100
[2017-08-25] MEDS: PIPERACILL/TAZOBAC IV 3.375 GM in DEXTROSE 5% 100ML 100 ML IV SCH ×3 (02:04→18:00)
[2017-08-25 05:01] LABS: HEMOGLOBIN 9.5 g/dL (14.0-18.0); MEAN CELL VOLUME 77.5 fL (80-100); MEAN CORPUSCULAR HEMOGLOBIN 23.8 pg (25-34); MEAN CORPUSCULAR HGB CONC 30.6 g/dl (32-36); MEAN PLATELET VOLUME 9.8 fL (7.4-10.4); PLATELET COUNT 225 K/uL (130-400); RED CELL DISTRIBUTION WIDTH CV 18.9 % (11.5-14.5); RED CELL DISTRIBUTION WIDTH SD 53.3 fL (36.4-46.3); WHITE BLOOD COUNT 6.44 K/uL (4.8-10.8)
[2017-08-25] MEDS: AMIODARONE / D5W 200 ML IV SCH ×2 (05:21→17:41)
[2017-08-25 05:22] LABS: CALCIUM 8.3 mg/dl (8.5-10.1); CREATININE 0.77 mg/dl (0.60-1.40); POTASSIUM 3.6 mmol/L (3.5-5.1)
[2017-08-25] MEDS ORDERED: HEPARIN IV BOLUS 3,000 UNIT in SYRINGE 0 ML IV ONE (06:00)
[2017-08-25] MEDS: HEPARIN 25,000 UNIT/500ML D5W 500 ML IV PRN (06:04)
[2017-08-25] MEDS: POLYETHYLENE (MIRALAX) 17 GM PACK PO SCH (08:05)
[2017-08-25] MEDS: PANTOprazole SOD 40 MG TAB PO SCH (08:11)
[2017-08-25] MEDS: MULTIVITAMIN TAB PO SCH (08:11)
[2017-08-25] MEDS: FUROSEMIDE 40 MG TAB PO SCH (08:12)
[2017-08-25] MEDS: GUAIFENESIN 600 MG TABCR PO SCH ×2 (08:12→21:59)
[2017-08-25] MEDS: SENNA 8.6 MG TAB PO SCH (08:13)
[2017-08-25] MEDS: FERROUS SULFATE 325 MG TAB PO SCH ×2 (08:13→21:59)
[2017-08-25] MEDS: SERTRALINE HCL 50 MG TAB PO SCH (08:13)
[2017-08-25] MEDS: METOPROLOL SUCC 25MG EXT REL TAB PO SCH ×2 (08:13→20:49)
[2017-08-25] MEDS: ATORVASTATIN 40 MG TAB PO SCH (08:14)
[2017-08-25] MEDS: BISACODYL 5 MG TABEC PO SCH (08:17)
[2017-08-25] MEDS ORDERED: FENTANYL CITRATE INJ 50 MCG/1 ML 2 ML VIAL ONE (12:07)
[2017-08-25] MEDS ORDERED: MIDAZOLAM HCL 1 MG/ML 2ML VIAL ONE (12:07)
[2017-08-25] MEDS ORDERED: BUPIVACAINE LIPOSOME 1/3% 266 MG/20 ML VIAL INFIL ONE (12:08)
[2017-08-25] MEDS ORDERED: BUPIVACAINE 0.5 % 5 MG/1 ML MPF 30ML VIAL ONE (12:08)
[2017-08-25] MEDS ORDERED: SODIUM CHLORIDE 0.9% PF 50 ML VIAL ONE ×2 (12:08)
[2017-08-25 13:03] LABS: PTT PATIENT 44.8 SECONDS (21.0-31.0)
[2017-08-25] MEDS ORDERED: ONDANSETRON INJ 2 MG/ML 2 ML VIAL ONE (13:50)
[2017-08-25] MEDS ORDERED: LIDOCAINE HCL 2% 2 ML VIAL (20MG/ML) ONE (13:50)
[2017-08-25] MEDS ORDERED: EpHEDrine SULFATE 50MG/5ML SYR ONE (13:50)
[2017-08-25] MEDS ORDERED: ROCURONIUM BROMIDE 10 MG/ML 5 ML VIAL IV ONE (13:50)
[2017-08-25] MEDS ORDERED: PROPOFOL IV EMULSION 10 MG/ML 20 ML VIAL IV ONE (13:50)
[2017-08-25] MEDS ORDERED: PHENYLEPHRINE HCL INJ 10 MG/ML VIAL ONE (13:50)
[2017-08-25] MEDS ORDERED: GLYCOPYRROLATE INJ 0.2 MG/ML VIAL ONE (13:50)
[2017-08-25] MEDS ORDERED: PHENYLEPHRINE 100MCG/ML 5ML SYR ONE (13:50)
[2017-08-25] MEDS ORDERED: NEOSTIGMINE METHYLSULFATE 5 MG/5 ML SYR ONE (13:50)
--- NOTE | 2017-08-25 15:37 | [facility] Post Operative Brief Note ---
Immediate Operative Summary Operative Date Aug 25, 2017. Pre-Operative Diagnosis Right sided pleural effusion Post-Operative Diagnosis same as preop Procedure(s) Performed Right thoracoscopy with decortication Surgeon Dr. Lancaster Nuclear Engineer Surgeon(s) Jona Nicolas PA-C Estimated Blood Loss 150ML Findings Consistent with Post-Op Diagnosis Specimens Frozen specimen #1- Visceral pleura right lung, sent from room at 1430 Culture specimen #1- Right visceral pleura, aerobic and anaerobic specimen sent for culture and sensitivity, gram stain, fungus/yeast, acid fast (TB). Sent from room at 1500 A: Right Parietal pleura, sent fresh B: Right Pleura contents, sent fresh C: Right Visceral pleura, sent fresh Anesthesia Type General
--- NOTE | 2017-08-25 16:23 | Anesthesiology Progress Note ---
Anesthesia Post Op Note Date & Time Aug 25, 2017 at 16:23 Vital Signs Pain Intensity: 0.0 Vital Signs Past 12 Hours Date Time Temp Pulse Resp B/P (MAP) Pulse Ox O2 Delivery O2 Flow Rate FiO2 08/25/17 10:59 36.7 59 22 125/66 (85) 92 Room Air 08/25/17 08:00 Room Air 08/25/17 07:28 36.8 65 18 147/72 (97) 90 Room Air Notes Mental Status: alert / awake / arousable, participated in evaluation Pt Amnestic to Procedure: Yes Nausea / Vomiting: adequately controlled Pain: adequately controlled Airway Patency, RR, SpO2: stable & adequate BP & HR: stable & adequate Hydration State: stable & adequate Anesthetic Complications: no major complications apparent Report was given to ICU attending.
--- NOTE | 2017-08-25 16:33 | DIAGNOSTIC IMAGING REPORT ---
CHEST ONE VIEW PORTABLE CLINICAL HISTORY: decortication COMPARISON STUDY: 08/24/2017 FINDINGS: The heart is enlarged. There are 2 right-sided chest tubes. There is an 8 mm right-sided pneumothorax. There is a small amount of subcutaneous emphysema on the right. There is diminished right-sided pleural fluid with right lateral pleural thickening. There is a small left pleural effusion with associated left basilar airspace opacities. There is mild diffuse interstitial thickening most pronounced at the right lung base.[ IMPRESSION: Postsurgical changes on the right. There are 2 right-sided chest tubes. There is an 8 mm right apical pneumothorax. There is diffuse interstitial thickening. There is a markedly diminished right-sided pleural effusion with right-sided pleural thickening. There is a persistent left pleural effusion with associated left basilar airspace opacities Electronically signed by: Randell Walker M.D. 08/25/2017 4:32 PM Dictated Date/Time: 08/25/2017 4:30 PM
[2017-08-25] MEDS ORDERED: NOREPINEPHRINE BITARTRATE 1 MG/ML 4 ML VIAL IV ONE (17:08)
[2017-08-25 17:35] LABS: HEMATOCRIT 30.8 % (42-52); HEMOGLOBIN 9.5 g/dL (14.0-18.0)
[2017-08-25 17:53] LABS: CALCIUM 7.9 mg/dl (8.5-10.1); CREATININE 0.8 mg/dl (0.60-1.40); POTASSIUM 3.5 mmol/L (3.5-5.1)
[2017-08-25 17:55] LABS: PHOSPHORUS 4.2 mg/dl (2.5-4.9)
[2017-08-25] MEDS: KETOROLAC TROMETHAMINE 15 MG/ML VIAL IV. SCH (18:24)
[2017-08-25] MEDS: METOCLOPRAMIDE HCL INJ 5 MG/ML 2 ML VIAL IV. SCH ×2 (18:27→23:47)
[2017-08-25] MEDS: D5W AND 1/2NSS 1,000 ML IV SCH ×2 (18:29→23:46)
--- NOTE | 2017-08-25 18:46 | OPERATIVE REPORT ---
DATE OF OPERATION: 08/25/2017 PREOPERATIVE DIAGNOSIS: Complicated right pleural effusion. POSTOPERATIVE DIAGNOSIS: Same. PROCEDURE: Right thoracoscopy with extensive decortication of right upper, middle and lower lobes. SURGEON: Dr. Lancaster. OIL WELL LOGGING ENGINEER: Eric Nicolas (Mr. Nicolas was present for the entire case and was instrumental in holding the camera and performing first coat operator's duties. He also closed the skin incisions at the end of the case). ANESTHESIA: General anesthesia endotracheal intubation using double lumen tube. SPECIFICS FOR PROCEDURE: Vasu Rizo is a 71-year-old male who has had a complicated right pleural effusion. I performed a thoracentesis and only got about 150 mL of fluid and the pH was 7.09, so I admitted him with the fear we may be dealing with an empyema. I placed a PleurX catheter the following day and given pH was low; however, we never grew out any bacteria or fungi. He also had no evidence of organisms on the Gram stain. He had hemolysis which made laboratory evaluation difficult. Upon closer history taking, the patient apparently fell a few months ago while fishing and landed on his right side and feels that he may have fractured some ribs. Any rate, he presented and I attempted to use a MIST-2 protocol with TPA and dornase; however, the patient simply could not tolerate us, draining his PleurX catheter. He was in such agony that we elected to stop draining it. He asked the surgery be performed. I had a long talk with the patient and his daughter Marielle. He was setup to go on 08/22/2017; however, in the holding area that he had had an atrial fibrillation with a rapid ventricular response about 150 beats per minute. I canceled the case. He was admitted to the ICU and cardiology followed him attempted to cardioverted him electrically; however, he finally converted and appeared to be due to chemical cardioversion. He was on intravenous amiodarone and actually did well and looked much better after he was back in the sinus rhythm. We got ready for surgery today on 08/25/2017. On 08/25/2017, the patient brought to the operating room and found to have a complicated effusion with a marked pleural thickening of the upper lobe, but especially the middle lobe and lower lobe. I did an extensive decortication and I managed to remove all of this. Frozen section of this thickened pleura showed fibrosis. I believe this may have had a clotted hemothorax with organization with fibrin deposition and had a thick pleural peel with a trapped lung. He was much improved at the conclusion of the case. He tolerated it well. DESCRIPTION OF PROCEDURE: The patient was brought to the operating room and placed in supine position. General anesthesia was induced and endotracheal intubation was performed with a double lumen tube. Appropriate monitoring lines including an arterial line and Arredondo catheter were placed. The patient was placed in the left lateral decubitus position. His PleurX catheter had been removed. Appropriate timeout given called and be given prophylactic antibiotics. We made 3 separate incisions. One was about the seventh interspace posteriorly and once was about the fourth interspace just anterior to the latissimus dorsi muscle and then we made another incision anteriorly and inferiorly. With use of these 3 incisions, I was able to see that we were in the space itself. We insufflated CO2 initially but this did not really help us. I opened up the working channel about 3-4 cm in the fourth interspace and then proceeded to meticulously take down this entire pleural peel. I started off by going to the apex and freeing it up and coming down to normal lung and then when I got down a bit further in the upper lobe, I encountered the peel that was holding the pleura down; however, I managed to perform a plane and by pulling this down, I was able to easily free up the upper lobe. It then took me down to the fissure and the peel went down in to the oblique fissure as well as the horizontal fissure. At any rate, going down, I was able to free up the upper lobe completely. This peel was removed from the field. I then was able to grasp this peel and again got into a good plane. I was able to remove this entire peel all the way down around under the inferior aspect of the lower lobe. I was able to free up the entire lung. We had very little in the way of any lung injury. I also did a limited pleurectomy as this was necessitated by the thickened pleura. We removed a fair amount of this and used an Aquamantys for hemostasis. I also removed some minimally thickened pleura with pleural contents. Frozen section of the thickest pleura over the lower lobe was sent for frozen section and this appeared to be simply fibrosis. I then used mixed 266 mg of Exparel with 30 mL of 0.5% bupivacaine and 100 mL of saline for 150 mL total fluids and then performed an intercostal block from the second to the eleventh rib. I also used this to inject the incisions. A 24-Kyrgyz chest tube was then placed through a separate stab wound anteriorly and directed towards the apex and sutured in place with heavy silk suture. A right angle 24 Kyrgyz chest tube through the anterior inferior most incision, although I closed the muscle layer first and then made this chest tube go inferiorly so it was down at the costophrenic angle laterally. This was held in place with heavy silk suture. 0 Vicryl was used to close the muscle layers of the working channel of the fourth interspace as well as the posterior incision and 4-0 Monocryl was used to close all these incisions. He tolerated it quite well. I attest to the content of the Intraoperative Record and any orders documented therein. Any exceptions are noted below. LEROY
[2017-08-25] MEDS: ACETAMINOPHEN IV 1,000 MG in EMPTY BAG 0 ML IV SCH (19:58)
--- NOTE | 2017-08-25 20:02 | Critical Care Progress Note ---
Critical Care Progress Note Date of Service Aug 25, 2017. ICU Day ICU Day Number: [address] Chong Mart Rizo is a 71 yo male who was admitted for suspicion of empyema with increasing SOB. Pt underwent thoracentesis with very little output with a low pH. Once admitted, pt underwent Pleurx catheter insertion. To date, gram stain and cultures have been negative. Pt began MIST -2 protocol with TPA, but 2/2 to significant pain during draining the protocol was not tolerated. Initially procedure was planned for 08/22; however, pt went into A. fib RVR and was subsequently transferred to the ICU. Both electrical and chemical cardioversion were attempted at which time per records pt converted to NSR. Today Dr. Lancaster took the pt to the OR for a right thoracoscopy with extensive decortication of right upper, middle and lower lobes. At which time he found " pleural thickening of the upper lobe, but especially the middle lobe and lower lobe." Per Dr. Lancaster, the frozen section demonstrated fibrosis and he believes the complicated effusion to be clotted hemothorax 2/2 to reported fall a few months ago while fishing when he states he landed on his right side and had fractured ribs. Per Anisha's report pt tolerated procedure well; he did receive a intercostal block prior to leaving the OR as well as [address]. Upon seeing pt this evening in the ICU, he has no complaints. He states he feel very good. The patient denies fever, dizziness, headache, weakness, numbness, change in vision, sore throat, chest pain, palpitations, awareness of tachyarrhythmias, leg swelling, shortness of breath, cough, nausea, vomiting, bloody stools, diarrhea, constipation, abdominal pain, other changes in urine or bowel habits. He states he hasn't passed gas since leaving the OR. During my visit pts vital signs were stable on Levophed with Amiodarone infusions. Objective Vital Signs - as noted Laboratory Data - as noted Physical Exam: General - NAD, Resting in bed watching television Eyes - PERRL, EOMI No icterus, gaze conjugate ENT - Mucosa moist, no lesions or candidiasis, no dentition Neck - Supple, trachea midline, no masses or lymphadenopathy, no JVD or bruits Lungs - No paradoxical chest wall movement, clear breath sounds on left with pleural rub throughout on right. no wheezes, rales, or rhonchi Heart - Irregularly irregular with rate in the 80's, 3/6 systolic murmur, No rubs, clicks, or gallops appreciated Abdomen - hypoactive bowel sounds, no bruits noted, tympanic to percussion, soft , nontender to palpation, nondistended, no organomegaly Extremities - No edema, pedal pulses intact Neuro - A&OX4 Strength extremities equal and appropriate bilaterally Reflexes: normal and equal CN:PERRL, EOMI, no facial asymmetry, uvula/tongue midline Current SOFA Score SOFA Score Response (Comments) Value Platelets (x10) > 150 0 Bilirubin (mg/dL) < 1.2 0 Medon Coma Score 15 0 Level of Hypotension MAP less than 70 1 Creatinine (mg/dL) < 1.2 0 Total 1 Assessment & Plan (1) Dilated cardiomyopathy (2) CAD in [place] artery (3) HLD (hyperlipidemia) (4) Acute exacerbation of CHF (congestive heart failure) (5) Empyema, right (6) Hypertension (7) Elevated alkaline phosphatase level PLAN: Resp: * Supplemental oxygen as required * Saturations adequate currently on 2L, Alert provider if oxygen requirement changes * Dr. Lancaster; POD # 0 for Right Sided Decortication as described in HPI for clotted hemothorax * [address]: leaks noted in both * #1 with 70cc * #2 with 450cc CV: * Recent episode of A. Fib RVR, A. fib noted now with rate < 100 * Continue IV amiodarone overnight with plan to convert to PO in AM * Repeat EKG * Optimize Electrolytes * Continue Heparin Infusion on hold in post-op setting * Hypotension * bedside ultrasound per Dr. Chong hypovolemia note * continue fluid resuscitation, hx of cardiomyopathy with poor EF * Levophed infusion currently, wean as tolerated * Switch fluids to Normosol at 100mL.hr * Re-ultrasound throughout night as indicated * Continue home Statin and BB * Cardiology Following: Appreciate input Neuro: * Intercoastal block in OR * Pain Meds per EMR, notify provider when needed * Continue home Zoloft Fluids/Renal: * Monitor Cr in setting of recent hypotension * Goal MAP > 65 * Cr: 0.8 * Holding home ACEi * Normosol @ 100mL/hr * Arredondo in place, Pt hypovolemic on U/S * Urine output 380mL over 9hrs (0..6cc/kg/hr), 1L fluid bolus * Strict I&Os ID: * Abx: Complete Zosyn 08/26 (6 day today) * Afebrile * WBC: 6.44 * Prior Lactic Acid Negative, Monitor GI/Nutrition: * Continue home bowel regimen * Sips and chips overnight. Advance diet as bowel sounds improve and Levophed weaned * Protonix in place * GI following: Appreciate input * EGD by Dr. Cummins on 08/18/2017 Findings: - Gastric mucosal variant. Biopsied. 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 Thank you for involving us in the care of this patient. Please refer to Dr. Ayden Chong's addendum for further recommendations. I have personally evaluated and examined this patient. I agree with assessment and plan of Tori Baker PA-C. During my evaluation of the patient, he was found to be hypotensive and had altered mentation. I believed he was still under the effects of general anesthesia, I performed a limited bedside echo which revealed a significant hypovolemic state with collapsibility of his IVC. He also has a cardiomyopathy and a poor ejection fraction, he was globally hypokinetic without evidence of active ongoing ischemia. We will gently rehydrate the patient and monitor for volume overload which is been an issue for him in the past. I have personally spent 30 minutes of critical care time in the direct management of this patient. This is a life/limb threatening event. This includes time spent evaluating patient, direct bedside care, chart review, placing orders, interpretation of diagnostic studies, discussion with consultants, patient, and/or family members regarding treatment decisions, as well as other required patient management activities. This time is exclusive of all separately billable procedures, and teaching time and separate from and in addition to any other critical care service time. Consults & Procedures Consultants: Cardiology: Dr. Mata GI: Dr. Cummins Thoracic Surg: Dr. Lancaster Procedures: EGD: 08/20/17 Decortication: 08/25/17 Thoracentesis: 08/18/17 Data Medications: Current Inpatient Medications Medications (Trade) Dose Ordered Sig/Kaitlynn Route Start Time Stop Time Status Last Admin Dose Admin Magnesium Hydroxide (Milk Of Magnesia Susp) 30 ml Q6H PRN PO 08/18/17 17:30 09/17/17 17:29 Polyethylene (Miralax Powder Packet) 17 gm DAILY PRN PO 08/18/17 17:30 09/17/17 17:29 Ondansetron HCl (Zofran Inj) 4 mg Q6H PRN IV 08/18/17 17:30 09/17/17 17:29 08/22/17 11:11 4 MG Piperacillin Sod/ Tazobactam Sod 3.375 gm/Dextrose 115 ml @ 28.75 mls/ hr Q8H IV 08/19/17 02:00 08/26/17 01:59 08/25/17 18:00 28.75 MLS/HR Miscellaneous Information (Consult) 1 ea UD PRN N/A 08/18/17 17:30 09/17/17 17:29 Guaifenesin (Mucinex Contr Rel Tab) 600 mg Q12 PO 08/18/17 21:00 09/17/17 20:59 08/25/17 08:12 600 MG Hydroxyzine HCl (Vistaril Tab) 25 mg HS PRN PO 08/20/17 00:30 09/19/17 00:29 08/20/17 00:40 25 MG Bisacodyl (Dulcolax Tab) 10 mg DAILY PO 08/21/17 10:00 09/20/17 09:59 08/25/17 08:17 10 MG Polyethylene (Miralax Powder Packet) 17 gm DAILY PO 08/21/17 10:00 09/20/17 09:59 08/24/17 09:30 17 GM Bisacodyl (Dulcolax Supp) 10 mg DAILY PRN AR 08/21/17 10:00 09/20/17 09:59 Atorvastatin Calcium (Lipitor Tab) 80 mg DAILY PO 08/23/17 09:00 09/22/17 08:59 08/25/17 08:14 80 MG Furosemide (Lasix Tab) 40 mg QAM PO 08/23/17 09:00 09/22/17 08:59 08/25/17 08:12 40 MG Multivitamins (Multivitamin Tab) 1 tab QAM PO 08/23/17 09:00 09/22/17 08:59 08/25/17 08:11 1 TAB Pantoprazole Sodium (Protonix Tab) 40 mg QAM PO 08/23/17 09:00 09/22/17 08:59 08/25/17 08:11 40 MG Senna (Senokot Tab) 8.6 mg QAM PO 08/23/17 09:00 09/22/17 08:59 08/25/17 08:13 8.6 MG Sertraline HCl (Zoloft Tab) 75 mg QAM PO 08/23/17 09:00 09/22/17 08:59 08/25/17 08:13 75 MG Benazepril HCl (Lotensin Tab) 20 mg QAM PO 08/23/17 09:00 09/22/17 08:59 Future Hold Bimatoprost (Lumigan 0.01%) 1 drops HS OP 08/22/17 21:00 09/21/17 20:59 08/24/17 19:52 1 DROPS Ferrous Sulfate (Feosol Tab) 325 mg BID PO 08/22/17 21:00 09/21/17 20:59 08/25/17 08:13 325 MG Amiodarone HCL/ Dextrose 200 ml @ 16.7 mls/hr [id number] IV 08/22/17 19:45 08/25/17 23:59 08/25/17 17:41 16.7 MLS/HR Amiodarone HCl (Cordarone Tab) 400 mg TID PO 08/23/17 12:00 09/22/17 11:59 Future hold 08/24/17 13:45 400 MG Metoprolol Succinate (Toprol Xl Tab) 25 mg BID PO 08/23/17 21:00 09/22/17 20:59 08/25/17 08:13 25 MG Acetaminophen 1000 mg/Empty Bag 100 ml @ 400 mls/hr Q8H IV 08/25/17 20:00 09/24/17 19:59 Oxycodone HCl (Roxicodone Immediate Rel Tab) 5 mg Q6H PRN PO 08/25/17 16:00 09/08/17 15:59 Enoxaparin Sodium (Lovenox Inj) 40 mg DAILY SQ 08/26/17 09:00 09/25/17 08:59 Dextrose/Sodium Chloride 1,000 ml @ 100 mls/hr Q10H IV 08/25/17 16:30 09/24/17 16:29 08/25/17 18:29 100 MLS/HR Ketorolac Tromethamine (Toradol Inj) 15 mg Q8H IV. 08/25/17 18:00 08/27/17 10:01 08/25/17 18:24 15 MG Metoclopramide HCl (Reglan Inj) 10 mg Q8@0000,0800,1600 IV. 08/25/17 16:00 09/24/17 15:59 08/25/17 18:27 10 MG Morphine Sulfate (MoRPHine SULFATE INJ) 2 mg Q1H PRN IV 08/25/17 16:00 09/08/17 15:59 I & O: 24-Hour Column 08/26/17 08:00 Intake Total 3121 ml Output Total 1200 ml Balance 1921 ml Vital Signs: Date Time Temp Pulse Resp B/P (MAP) Pulse Ox O2 Delivery O2 Flow Rate FiO2 08/25/17 16:50 36.3 61 24 92/40 92 Nasal Cannula 4 98/46 (63) 08/25/17 16:40 36.3 62 24 96/47 96 Nasal Cannula 4 102/48 (64) 08/25/17 16:38 60 25 117/52 96 08/25/17 16:38 62 25 08/25/17 16:35 104/52 08/25/17 16:33 62 24 08/25/17 16:33 62 24 110/58 96 08/25/17 16:31 94/50 08/25/17 16:30 58 23 94/50 94 Oxymask 10 119/63 (77) 08/25/17 16:28 59 26 121/54 96 08/25/17 16:28 61 26 08/25/17 16:25 116/52 08/25/17 16:23 58 25 08/25/17 16:23 59 25 107/52 94 08/25/17 16:21 91/45 08/25/17 16:20 60 25 91/45 93 Oxymask 10 93/57 (68) 08/25/17 16:18 56 26 108/50 94 08/25/17 16:18 57 26 08/25/17 16:16 82/47 08/25/17 16:15 101/50 08/25/17 16:13 57 26 119/55 97 08/25/17 16:13 56 26 08/25/17 16:11 84/50 08/25/17 16:10 57 26 84/50 98 Oxymask 10 97/59 (68) 08/25/17 16:08 57 27 08/25/17 16:08 57 27 115/52 97 08/25/17 16:05 81/48 08/25/17 16:04 67/41 08/25/17 16:03 65 17 08/25/17 16:03 65 17 91 08/25/17 16:03 36.0 58 25 67/41 95 Oxymask 10 08/25/17 10:59 36.7 59 22 125/66 (85) 92 Room Air 08/25/17 08:00 Room Air 08/25/17 07:28 36.8 65 18 147/72 (97) 90 Room Air 08/25/17 04:02 Room Air 08/25/17 03:29 36.7 61 18 127/72 (90) 92 Room Air 08/25/17 00:02 Room Air 08/24/17 23:10 37.4 58 18 143/67 (92) 91 Room Air 08/24/17 20:03 Room Air Laboratory Results: Last 24 Hours Test 08/25/17 04:44 08/25/17 12:37 08/25/17 17:21 08/25/17 17:33 White Blood Count 6.44 K/uL Red Blood Count 4.00 M/uL Hemoglobin 9.5 g/dL 9.5 g/dL Hematocrit 31.0 % 30.8 % Mean Corpuscular Volume 77.5 fL Mean Corpuscular Hemoglobin 23.8 pg Mean Corpuscular Hemoglobin Concent 30.6 g/dl RDW Standard Deviation 53.3 fL RDW Coefficient of Variation 18.9 % Platelet Count 225 K/uL Mean Platelet Volume 9.8 fL Activated Partial Thromboplast Time 45.0 SECONDS 44.8 SECONDS Partial Thromboplastin Ratio 1.7 1.7 Sodium Level 130 mmol/L 132 mmol/L Potassium Level 3.6 mmol/L 3.5 mmol/L Chloride Level 93 mmol/L 96 mmol/L Carbon Dioxide Level 35 mmol/L 28 mmol/L Anion Gap 2.0 mmol/L 9.0 mmol/L Blood Urea Nitrogen 9 mg/dl 9 mg/dl Creatinine 0.77 mg/dl 0.80 mg/dl Est Creatinine Clear Calc Drug Dose 85.3 ml/min 82.2 ml/min Estimated GFR () 104.3 102.7 Estimated GFR (Non- 90.0 88.6 BUN/Creatinine Ratio 12.2 10.7 Random Glucose 106 mg/dl 133 mg/dl Calcium Level 8.3 mg/dl 7.9 mg/dl Ionized Calcium 1.10 mmol/l Phosphorus Level 4.2 mg/dl Magnesium Level 1.8 mg/dl Blood Gas Sample Site Art Line Bedside Blood Gas pH (LAB) 7.34 Bedside Blood Gas pCO2 (LAB) 60 mmHg Bedside Blood Gas pO2 (LAB) 89 mmHg Bedside Blood Gas HCO3 (LAB) 32 meq/L Bedside Blood Gas Total CO2 34 mEq/l Bedside Blood Gas Base Excess (LAB) 7.0 meq/L Bedside Blood Gas O2 Saturation 96.0 % Chandler Test NA Oxygen Delivery Device NonRb Mask Bedside FiO2 0 %
--- NOTE | 2017-08-25 20:21 | Procedure Note ---
Procedure Note Date of Service Aug 25, 2017. Procedure Note Critical Care Medicine Point of Care Bedside Ultrasound Procedure: Limited Transthoracic Echocardiogram Indication: Hypotension status post operative management Date: 08/25/2017 Attending: Lidia Chong DO Fellow/Resident/Physician Wall Washer: Applicable Organs Examined: Heart, Vascular system Pericardial fluid: Absence Right ventricle size: Normal LV Contractility: Poor RV Contractility: Normal IVC size: SIZE in CM Y (<1.2 cm predicts right atrial pressure < 10 mmHg) Mechanically ventilated breaths: No Hemodynamic Status: On Levophed heart rate 60 blood pressure 85 systolic IVC respiratory variation % Spontaneous breaths: Yes Intravascular volume status: Hypovolemic Impression: Hypovolemic status post operative management. Patient has pre- existing cardiomyopathy and globally poor ejection fraction. Plan: Judicious use of fluids and vasoactive medications, attempt to wean vasoactive medications Images obtained are saved for permanent record
[2017-08-25] MEDS ORDERED: NURSING VERBAL MED ORDER ONE (20:45)
[2017-08-25] MEDS ORDERED: NOREPINEPHRINE BIT INJ 8 MG in DEXTROSE 5% 500ML 500 ML IV PRN (21:00)
[2017-08-25] MEDS ORDERED: SODIUM CHLORIDE 0.9% 1000ML 1,000 ML IV SCH (21:00)
[2017-08-25] MEDS ORDERED: POTASSIUM CHLORIDE 20 MEQ/15 ML UDC PO STA (21:36)
[2017-08-25] MEDS: BIMATOPROST 0.01% OP SOLN 2.5 ML BTL OP SCH (21:58)
[2017-08-25] MEDS ORDERED: SODIUM CHLORIDE 0.9% 1000ML 1,000 ML IV ONE (22:30)
--- NOTE | 2017-08-25 22:39 | Progress Note ---
Subjective Date of Service: Aug 25, 2017. Subjective Pt evaluation today including: conversation w/ patient Patient seen prior to VATS procedure. He states feels generally well and is a litte concerned over the procedure. ROS is below. Problem List Medical Problems: (1) Alkaline phosphatase elevation Status: Acute (2) Anemia Status: Acute (3) Chest pain Status: Acute (4) Gastritis Status: Acute (5) Pleural effusion, bilateral Status: Acute Review of Systems Constitutional: No fever, No chills ENT: No unusual epistaxis Respiratory: No cough Cardiac: No chest pain Abdomen: No pain Psychiatric: No depression symptoms Heme: No abnormal bleeding/bruising Endo: No fatigue Skin: No rash All Other Systems: Reviewed and Negative Medications Current Inpatient Medications Medications (Trade) Dose Ordered Sig/Kaitlynn Route Start Time Stop Time Status Last Admin Dose Admin Magnesium Hydroxide (Milk Of Magnesia Susp) 30 ml Q6H PRN PO 08/18/17 17:30 09/17/17 17:29 Polyethylene (Miralax Powder Packet) 17 gm DAILY PRN PO 08/18/17 17:30 09/17/17 17:29 Ondansetron HCl (Zofran Inj) 4 mg Q6H PRN IV 08/18/17 17:30 09/17/17 17:29 08/22/17 11:11 4 MG Guaifenesin (Mucinex Contr Rel Tab) 600 mg Q12 PO 08/18/17 21:00 09/17/17 20:59 08/26/17 07:55 600 MG Hydroxyzine HCl (Vistaril Tab) 25 mg HS PRN PO 08/20/17 00:30 09/19/17 00:29 08/20/17 00:40 25 MG Bisacodyl (Dulcolax Tab) 10 mg DAILY PO 08/21/17 10:00 09/20/17 09:59 08/26/17 08:04 10 MG Polyethylene (Miralax Powder Packet) 17 gm DAILY PO 08/21/17 10:00 09/20/17 09:59 08/24/17 09:30 17 GM Bisacodyl (Dulcolax Supp) 10 mg DAILY PRN [place] 08/21/17 10:00 09/20/17 09:59 Atorvastatin Calcium (Lipitor Tab) 80 mg DAILY PO 08/23/17 09:00 09/22/17 08:59 08/25/17 08:14 80 MG Furosemide (Lasix Tab) 40 mg QAM PO 08/23/17 09:00 09/22/17 08:59 08/26/17 07:56 40 MG Multivitamins (Multivitamin Tab) 1 tab QAM PO 08/23/17 09:00 09/22/17 08:59 08/26/17 07:55 1 TAB Pantoprazole Sodium (Protonix Tab) 40 mg QAM PO 08/23/17 09:00 09/22/17 08:59 08/26/17 07:55 40 MG Senna (Senokot Tab) 8.6 mg QAM PO 08/23/17 09:00 09/22/17 08:59 08/26/17 07:55 8.6 MG Sertraline HCl (Zoloft Tab) 75 mg QAM PO 08/23/17 09:00 09/22/17 08:59 08/26/17 07:57 75 MG Benazepril HCl (Lotensin Tab) 20 mg QAM PO 08/23/17 09:00 09/22/17 08:59 Future Hold Bimatoprost (Lumigan 0.01%) 1 drops HS OP 08/22/17 21:00 09/21/17 20:59 08/25/17 21:58 1 DROPS Ferrous Sulfate (Feosol Tab) 325 mg BID PO 08/22/17 21:00 09/21/17 20:59 08/26/17 07:54 325 MG Amiodarone HCl (Cordarone Tab) 400 mg TID PO 08/23/17 12:00 09/22/17 11:59 Future hold 08/24/17 13:45 400 MG Metoprolol Succinate (Toprol Xl Tab) 25 mg BID PO 08/23/17 21:00 09/22/17 20:59 08/25/17 08:13 25 MG Oxycodone HCl (Roxicodone Immediate Rel Tab) 5 mg Q6H PRN PO 08/25/17 16:00 09/08/17 15:59 Enoxaparin Sodium (Lovenox Inj) 40 mg DAILY SQ 08/26/17 09:00 09/25/17 08:59 08/26/17 07:58 40 MG Dextrose/Sodium Chloride 1,000 ml @ 100 mls/hr Q10H IV 08/25/17 16:30 09/24/17 16:29 08/25/17 23:46 100 MLS/HR Ketorolac Tromethamine (Toradol Inj) 15 mg Q8H IV. 08/25/17 18:00 08/27/17 10:01 08/26/17 01:52 15 MG Metoclopramide HCl (Reglan Inj) 10 mg Q8@0000,0800,1600 IV. 08/25/17 16:00 09/24/17 15:59 08/26/17 08:04 10 MG Morphine Sulfate (MoRPHine SULFATE INJ) 2 mg Q1H PRN IV 08/25/17 16:00 09/08/17 15:59 Norepinephrine Bitartrate 8 mg/ Dextrose 508 ml @ 0 mls/hr Q0M PRN IV 08/25/17 21:00 09/24/17 20:59 08/26/17 02:25 26.3 MLS/HR Acetaminophen 1000 mg/Empty Bag 100 ml @ 400 mls/hr Q8H PRN IV 08/26/17 08:45 09/25/17 08:44 Objective Vital Signs Date Time Temp Pulse Resp B/P (MAP) Pulse Ox O2 Delivery O2 Flow Rate FiO2 08/25/17 16:50 36.3 61 24 92/40 92 Nasal Cannula 4 98/46 (63) 08/25/17 16:40 36.3 62 24 96/47 96 Nasal Cannula 4 102/48 (64) 08/25/17 16:38 60 25 117/52 96 08/25/17 16:38 62 25 08/25/17 16:35 104/52 08/25/17 16:33 62 24 08/25/17 16:33 62 24 110/58 96 08/25/17 16:31 94/50 08/25/17 16:30 58 23 94/50 94 Oxymask 10 119/63 (77) 08/25/17 16:28 59 26 121/54 96 08/25/17 16:28 61 26 08/25/17 16:25 116/52 08/25/17 16:23 58 25 08/25/17 16:23 59 25 107/52 94 08/25/17 16:21 91/45 08/25/17 16:20 60 25 91/45 93 Oxymask 10 93/57 (68) 08/25/17 16:18 56 26 108/50 94 08/25/17 16:18 57 26 08/25/17 16:16 82/47 08/25/17 16:15 101/50 08/25/17 16:13 57 26 119/55 97 08/25/17 16:13 56 26 08/25/17 16:11 84/50 08/25/17 16:10 57 26 84/50 98 Oxymask 10 97/59 (68) 08/25/17 16:08 57 27 08/25/17 16:08 57 27 115/52 97 08/25/17 16:05 81/48 08/25/17 16:04 67/41 08/25/17 16:03 65 17 08/25/17 16:03 65 17 91 08/25/17 16:03 36.0 58 25 67/41 95 Oxymask 10 08/25/17 10:59 36.7 59 22 125/66 (85) 92 Room Air 08/25/17 08:00 Room Air 08/25/17 07:28 36.8 65 18 147/72 (97) 90 Room Air 08/25/17 04:02 Room Air 08/25/17 03:29 36.7 61 18 127/72 (90) 92 Room Air 08/25/17 00:02 Room Air 08/24/17 23:10 37.4 58 18 143/67 (92) 91 Room Air Physical Exam Comments: General Appearance: WDWN in NAD; thin HEENT: Head is normocephalic/atraumatic; Mucous membranes moist; Pharynx negative for exudate/lesions; Edentulous Neck: Supple; Trachea midline; Neg JVD; Neg lymphadenopathy Heart: RRR with systolic murmur Lungs: CTA in all lung hartmann bilaterally but diminished at bases - takes short inspirations; Respirations unlabored; Neg accessory muscle use; R lower lung field PleurX Abdomen: Soft, non-tender, non-distended; Positive BS x 4 quadrants Extremities: Neg cyanosis or edema Neurological: Speech is mumbled due to no teeth but clear and appropriate; Neg focal neurologic deficits Psychiatric: Appropriate mood/affect Skin: + mildly erythematous, non-puritic square on R chest appears to be from pacer pad placement/contact dermatitis; Normal Color; Warm/Dry Laboratory Results Last 24 Hours Test 08/25/17 04:44 08/25/17 12:37 08/25/17 17:21 08/25/17 17:33 White Blood Count 6.44 K/uL Red Blood Count 4.00 M/uL Hemoglobin 9.5 g/dL 9.5 g/dL Hematocrit 31.0 % 30.8 % Mean Corpuscular Volume 77.5 fL Mean Corpuscular Hemoglobin 23.8 pg Mean Corpuscular Hemoglobin Concent 30.6 g/dl RDW Standard Deviation 53.3 fL RDW Coefficient of Variation 18.9 % Platelet Count 225 K/uL Mean Platelet Volume 9.8 fL Activated Partial Thromboplast Time 45.0 SECONDS 44.8 SECONDS Partial Thromboplastin Ratio 1.7 1.7 Sodium Level 130 mmol/L 132 mmol/L Potassium Level 3.6 mmol/L 3.5 mmol/L Chloride Level 93 mmol/L 96 mmol/L Carbon Dioxide Level 35 mmol/L 28 mmol/L Anion Gap 2.0 mmol/L 9.0 mmol/L Blood Urea Nitrogen 9 mg/dl 9 mg/dl Creatinine 0.77 mg/dl 0.80 mg/dl Est Creatinine Clear Calc Drug Dose 85.3 ml/min 82.2 ml/min Estimated GFR () 104.3 102.7 Estimated GFR (Non- 90.0 88.6 BUN/Creatinine Ratio 12.2 10.7 Random Glucose 106 mg/dl 133 mg/dl Calcium Level 8.3 mg/dl 7.9 mg/dl Ionized Calcium 1.10 mmol/l Phosphorus Level 4.2 mg/dl Magnesium Level 1.8 mg/dl Blood Gas Sample Site Art Line Bedside Blood Gas pH (LAB) 7.34 Bedside Blood Gas pCO2 (LAB) 60 mmHg Bedside Blood Gas pO2 (LAB) 89 mmHg Bedside Blood Gas HCO3 (LAB) 32 meq/L Bedside Blood Gas Total CO2 34 mEq/l Bedside Blood Gas Base Excess (LAB) 7.0 meq/L Bedside Blood Gas O2 Saturation 96.0 % Chandler Test NA Oxygen Delivery Device NonRb Mask Bedside FiO2 0 % Assessment and Plan This is a 71 yo M with PMHx of dilated cardiomyopathy with severe left ventricular dysfunction with EF equal to 45% in 08/2015, CAD s/p 3 DEZ to diagonal and distal RCA, and PDA in 03/2016, mild aortic stenosis hypertension, hyperlipidemia, elevated alkaline phosphatase, GERD, diverticulosis, depression , weight loss of 40 pounds in the past year, dysphagia, iron deficiency anemia, who presents after right thoracentesis performed by Dr. Lancaster on 08/18/17. Thoracic fluid was found to be purulent so he has been directly admitted to the hospital for IV antibiotics for empyema. R Complex Empyema and Complicated Pleural Effusion with R Pleur-X: -no significant change - Continue Zosyn - Continue supportive care with pulmonary toilet, ambulation, deep breathing - CT Surg following - appreciate recommendations - CXR with reaccumulation - planning for OR later today SVT and Paroxysmal Atrial Fibrillation/Flutter: NSR Currently - on 08/22 patient went into SVT in pre-op. Adenosine 6 mg and 12 mg with converted to flutter and resulted hypotension from rhythm. Underwent unsuccessful cardioversion; Spontaneously converted to NSR on 08/23 and no further arrhythmias - Continue Amiodarone gtt until after surgical procedure and initiate Amiodarone 400 mg TID x 5 days then 400 mg daily - Plan to continue heparin gtt for possible VATS procedure Friday and consideration to convert to NOAC -- Discussed with patient who is in agreement for anticoagulation - Digoxin D/C'd and initiate Toprol XL 25 mg BID - Cardiology following - recommendations appreciated - plan as above Chronic Systolic CHF/Dilated Cardiomyopathy with Severe LV Dysfunction - EF 45% : CAD S/P PCI - HTN/HLD: - Toprol XL 25 mg BID, Atorvastatin 80 mg daily - ASA on hold - Lasix 40 mg daily Dysphagia/Unintentional Weight Loss/GERD/RUQ Pain: - Ease of eating improved with dental soft diet - discussed with daughter as well and states they are making arrangements for new dentures -- Given weight loss likely needs to fitting - Dental soft diet - GI followed and S/O - recommend to continue Protonix - [facility] following - recommending moist regular diet Constipation: - Continue bowel regimen with Miralax, Dulcolax, Senna; PRN Suppositories DVT Prophylaxis: Heparin gtt - likely conversion to NOAC pending surgery Code Status: FULL RESUSCITATION Update 19:00 Patient was seen after VATS procedure. Patient reports feeling tired. Patient is unable to provide more history. D/W with nurse, patient became hypotensive after procedure and required transfer to ICU given he required pressors and IVF. Continued [facility] stay due to: multiple IV medications needed Discharge planning: home
[2017-08-26] VITALS (81 sets, daily range): BP systolic 71–120; BP diastolic 30–56; PULSE 45–63; TEMP 36.4–36.6; O2SAT 91–100
[2017-08-26] MEDS: KETOROLAC TROMETHAMINE 15 MG/ML VIAL IV. SCH ×3 (01:52→18:02)
[2017-08-26 02:59] LABS: HEMATOCRIT 29.1 % (42-52); MEAN CELL VOLUME 79.1 fL (80-100); MEAN CORPUSCULAR HEMOGLOBIN 24.5 pg (25-34); MEAN CORPUSCULAR HGB CONC 30.9 g/dl (32-36); MEAN PLATELET VOLUME 9.9 fL (7.4-10.4); PLATELET COUNT 285 K/uL (130-400); RED CELL DISTRIBUTION WIDTH CV 19.4 % (11.5-14.5); RED CELL DISTRIBUTION WIDTH SD 55.9 fL (36.4-46.3); WHITE BLOOD COUNT 13.86 K/uL (4.8-10.8)
[2017-08-26 03:16] LABS: CALCIUM 7.6 mg/dl (8.5-10.1); CREATININE 1.18 mg/dl (0.60-1.40); POTASSIUM 3.8 mmol/L (3.5-5.1)
[2017-08-26 03:21] LABS: PHOSPHORUS 3.4 mg/dl (2.5-4.9)
[2017-08-26] MEDS: ACETAMINOPHEN IV 1,000 MG in EMPTY BAG 0 ML IV SCH (03:33)
[2017-08-26] MEDS: MAGNESIUM SULFATE 1GM / D5W 1 GM in PREMIXED IN D5W 100 ML IV SCH ×2 (04:23→05:29)
--- NOTE | 2017-08-26 07:02 | DIAGNOSTIC IMAGING REPORT ---
CHEST ONE VIEW PORTABLE CLINICAL HISTORY: Decortication. COMPARISON STUDY: Chest radiograph August 25, 2017 4:12 PM. FINDINGS: A small right apical pneumothorax with 7 mm of superior pleural separation is noted. There is also a basilar component. This is similar to prior exam. Right apical and basilar chest tubes are in place. A small left pleural effusion is noted with bibasilar opacities. Cardiomegaly is again noted. Mild interstitial thickening persists. IMPRESSION: 1. Two right-sided chest tubes in place. No significant change in a small right pneumothorax. 2. Persistent interstitial thickening with a small left pleural effusion and mild bibasilar opacities. Electronically signed by: Lonnie Almanza M.D. 08/26/2017 7:01 AM Dictated Date/Time: 08/26/2017 6:59 AM
[2017-08-26] MEDS: FERROUS SULFATE 325 MG TAB PO SCH ×2 (07:54→20:49)
[2017-08-26] MEDS: MULTIVITAMIN TAB PO SCH (07:55)
[2017-08-26] MEDS: SENNA 8.6 MG TAB PO SCH (07:55)
[2017-08-26] MEDS: GUAIFENESIN 600 MG TABCR PO SCH ×2 (07:55→20:50)
[2017-08-26] MEDS: PANTOprazole SOD 40 MG TAB PO SCH (07:55)
[2017-08-26] MEDS: FUROSEMIDE 40 MG TAB PO SCH (07:56)
[2017-08-26] MEDS: SERTRALINE HCL 50 MG TAB PO SCH (07:57)
[2017-08-26] MEDS: ENOXAPARIN 40 MG/0.4 ML SYR SQ SCH (07:58)
[2017-08-26] MEDS: METOCLOPRAMIDE HCL INJ 5 MG/ML 2 ML VIAL IV. SCH ×2 (08:04→16:20)
[2017-08-26] MEDS: BISACODYL 5 MG TABEC PO SCH (08:04)
[2017-08-26] MEDS ORDERED: ACETAMINOPHEN IV 1,000 MG in EMPTY BAG 0 ML IV PRN (08:45)
[2017-08-26] MEDS: METOPROLOL SUCC 25MG EXT REL TAB PO SCH (09:00)
[2017-08-26] MEDS: POLYETHYLENE (MIRALAX) 17 GM PACK PO SCH (09:00)
--- NOTE | 2017-08-26 09:48 | SURGERY PROGRESS NOTE ---
DATE: 08/26/2017 SUBJECTIVE: Mr. Rizo was seen today on 08/26/2017, 1 day after a thoracoscopic extensive decortication of the right lung. He looks very good today. He is on 1 liter with 98% saturation. He is sitting up in a chair eating breakfast. He has excellent pain control. Blood pressure is still a little low and he is on some Levophed. We had to volume resuscitate him overnight. We are doing this gingerly as he has cardiomyopathy. I discussed this case with Dr. Nance. The patient's heart rates in high 40s, low 50s. It appears to be a sinus rhythm. He is on amiodarone. He has rhonchi on the right with chest tube noises, but is moving air well actually. He has an excellent cough. He has no air leak. He has his sequential compression devices in place. LABORATORY DATA: His white count is 13,860 with hemoglobin of 9. The review of his chemistries reveal sodium which is down to 130 with a bicarbonate 29, BUN and creatinine of 11 and 1.18, which is a fairly significant increase. His blood sugars have been as high as 186. IMAGING: Reviewed his x-ray and I am very happy with its appearance. ASSESSMENT AND PLAN: Postoperative day #1, status post thoracoscopic decortication of right upper, middle and lower lobe. This appeared to be an old hemothorax. He tolerated the procedure well and was quite happy with his ability to "take a deep breath." We will watch him in the intensive care unit until his pressure improves. I have discussed this with the patient, the nursing staff and Dr. Nance.
[2017-08-26] MEDS: ATORVASTATIN 40 MG TAB PO SCH (10:01)
[2017-08-26] MEDS: D5W AND 1/2NSS 1,000 ML IV SCH (10:06)
[2017-08-26] MEDS: AMIODARONE 200 MG TAB PO SCH ×3 (10:09→22:15)
--- NOTE | 2017-08-26 10:14 | Critical Care Progress Note ---
Critical Care Progress Note Date of Service Aug 26, 2017. ICU Day ICU Day Number: [address] Chong Subjective No complaints this morning. Patient was resting comfortably in the chair after eating breakfast. Objective Vital Signs - as noted Laboratory Data - as noted Physical Exam: General - NAD, Eyes - PERRL, EOMI No icterus, gaze conjugate ENT - Mucosa moist, no lesions or candidiasis, no dentition Neck - Supple, trachea midline, no masses or lymphadenopathy, no JVD or bruits Lungs -chest tube present, grade 1 airway leaks in both chest tubes Heart - Irregularly irregular with rate in the 80's, 3/6 systolic murmur, No rubs, clicks, or gallops appreciated Abdomen -soft nontender nondistended Extremities - No edema, pedal pulses intact Neuro - A&OX4 Current SOFA Score SOFA Score Response (Comments) Value Platelets (x10) > 150 0 Bilirubin (mg/dL) < 1.2 0 Tenstrike Coma Score 15 0 Level of Hypotension MAP less than 70 1 Creatinine (mg/dL) < 1.2 0 Total 1 Assessment & Plan PLAN: Resp: * Supplemental oxygen as required * Saturations adequate currently on 2L, Alert provider if oxygen requirement changes * Chest tube management per thoracic surgery CV: * Recent episode of A. Fib RVR, A. fib noted now with rate < 100 * Converted to oral amiodarone * Optimize Electrolytes, potassium greater than 4.5, magnesium greater than 2 * Continue Heparin Infusion on hold in post-op setting * Hypotension * Still requiring Levophed * continue fluid resuscitation, hx of cardiomyopathy with poor EF * Normosol at 75mL.hr * Re-ultrasound throughout night as indicated * Discontinue D5 half NSS secondary to elevated blood sugars * Continue home Statin and BB * Cardiology Following: Appreciate input Neuro: * Intercoastal block in OR * Pain Meds per EMR, notify provider when needed * Continue home Zoloft Fluids/Renal: * Acute kidney injury secondary to operative procedure and operative stress * Continue to monitor urine output * Holding home ACEi * Arredondo in place, Pt hypovolemic on U/S ID: * Abx: Complete Zosyn 08/26 (7 day today) * Afebrile * WBC: 6.44 * Prior Lactic Acid Negative, Monitor GI/Nutrition: * Continue home bowel regimen * Sips and chips overnight. Advance diet as bowel sounds improve and Levophed weaned * Protonix in place * GI following: Appreciate input * EGD by Dr. Cummins on 08/18/2017 Findings: - Gastric mucosal variant. Biopsied. 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 This is a life/limb threatening event. This includes time spent evaluating patient, direct bedside care, chart review, placing orders, interpretation of diagnostic studies, discussion with consultants, patient, and/or family members regarding treatment decisions, as well as other required patient management activities. This time is exclusive of all separately billable procedures, and teaching time and separate from and in addition to any other critical care service time. Consults & Procedures Consultants: Cardiology: Dr. Mata GI: Dr. Cummins Thoracic Surg: Dr. Lancaster Procedures: EGD: 08/20/17 Decortication: 08/25/17 Thoracentesis: 08/18/17 Data Medications: Current Inpatient Medications Medications (Trade) Dose Ordered Sig/Kaitlynn Route Start Time Stop Time Status Last Admin Dose Admin Magnesium Hydroxide (Milk Of Magnesia Susp) 30 ml Q6H PRN PO 08/18/17 17:30 09/17/17 17:29 Polyethylene (Miralax Powder Packet) 17 gm DAILY PRN PO 08/18/17 17:30 09/17/17 17:29 Ondansetron HCl (Zofran Inj) 4 mg Q6H PRN IV 08/18/17 17:30 09/17/17 17:29 08/22/17 11:11 4 MG Guaifenesin (Mucinex Contr Rel Tab) 600 mg Q12 PO 08/18/17 21:00 09/17/17 20:59 08/26/17 07:55 600 MG Hydroxyzine HCl (Vistaril Tab) 25 mg HS PRN PO 08/20/17 00:30 09/19/17 00:29 08/20/17 00:40 25 MG Bisacodyl (Dulcolax Tab) 10 mg DAILY PO 08/21/17 10:00 09/20/17 09:59 08/26/17 08:04 10 MG Polyethylene (Miralax Powder Packet) 17 gm DAILY PO 08/21/17 10:00 09/20/17 09:59 08/24/17 09:30 17 GM Bisacodyl (Dulcolax Supp) 10 mg DAILY PRN [place] 08/21/17 10:00 09/20/17 09:59 Atorvastatin Calcium (Lipitor Tab) 80 mg DAILY PO 08/23/17 09:00 09/22/17 08:59 08/25/17 08:14 80 MG Furosemide (Lasix Tab) 40 mg QAM PO 08/23/17 09:00 09/22/17 08:59 08/26/17 07:56 40 MG Multivitamins (Multivitamin Tab) 1 tab QAM PO 08/23/17 09:00 09/22/17 08:59 08/26/17 07:55 1 TAB Pantoprazole Sodium (Protonix Tab) 40 mg QAM PO 08/23/17 09:00 09/22/17 08:59 08/26/17 07:55 40 MG Senna (Senokot Tab) 8.6 mg QAM PO 08/23/17 09:00 09/22/17 08:59 08/26/17 07:55 8.6 MG Sertraline HCl (Zoloft Tab) 75 mg QAM PO 08/23/17 09:00 09/22/17 08:59 08/26/17 07:57 75 MG Benazepril HCl (Lotensin Tab) 20 mg QAM PO 08/23/17 09:00 09/22/17 08:59 Future Hold Bimatoprost (Lumigan 0.01%) 1 drops HS OP 08/22/17 21:00 09/21/17 20:59 08/25/17 21:58 1 DROPS Ferrous Sulfate (Feosol Tab) 325 mg BID PO 08/22/17 21:00 09/21/17 20:59 08/26/17 07:54 325 MG Amiodarone HCl (Cordarone Tab) 400 mg TID PO 08/23/17 12:00 09/22/17 11:59 Future hold 08/24/17 13:45 400 MG Metoprolol Succinate (Toprol Xl Tab) 25 mg BID PO 08/23/17 21:00 09/22/17 20:59 08/25/17 08:13 25 MG Oxycodone HCl (Roxicodone Immediate Rel Tab) 5 mg Q6H PRN PO 08/25/17 16:00 09/08/17 15:59 Enoxaparin Sodium (Lovenox Inj) 40 mg DAILY SQ 08/26/17 09:00 09/25/17 08:59 08/26/17 07:58 40 MG Dextrose/Sodium Chloride 1,000 ml @ 100 mls/hr Q10H IV 08/25/17 16:30 09/24/17 16:29 08/25/17 23:46 100 MLS/HR Ketorolac Tromethamine (Toradol Inj) 15 mg Q8H IV. 08/25/17 18:00 08/27/17 10:01 08/26/17 01:52 15 MG Metoclopramide HCl (Reglan Inj) 10 mg Q8@0000,0800,1600 IV. 08/25/17 16:00 09/24/17 15:59 08/26/17 08:04 10 MG Morphine Sulfate (MoRPHine SULFATE INJ) 2 mg Q1H PRN IV 08/25/17 16:00 09/08/17 15:59 Norepinephrine Bitartrate 8 mg/ Dextrose 508 ml @ 0 mls/hr Q0M PRN IV 08/25/17 21:00 09/24/17 20:59 08/26/17 02:25 26.3 MLS/HR Acetaminophen 1000 mg/Empty Bag 100 ml @ 400 mls/hr Q8H PRN IV 08/26/17 08:45 09/25/17 08:44 Vital Signs: Date Time Temp Pulse Resp B/P (MAP) Pulse Ox O2 Delivery O2 Flow Rate FiO2 08/26/17 09:01 49 19 120/42 (68) 98 Nasal Cannula 1.0 08/26/17 09:00 46 19 98 08/26/17 08:31 50 22 116/32 (60) 97 08/26/17 08:30 51 17 98 08/26/17 08:00 51 15 98 08/26/17 07:32 36.5 56 17 85/ (28) 95 Nasal Cannula 1.0 08/26/17 07:30 95 Nasal Cannula 1.0 08/26/17 07:30 53 15 93 08/26/17 07:02 50 15 101/39 (59) 97 08/26/17 07:00 49 23 91 08/26/17 06:01 50 17 105/45 (59) 100 08/26/17 05:31 49 18 113/49 (96) 100 08/26/17 05:01 51 19 116/55 (94) 100 08/26/17 04:31 52 27 113/56 (83) 99 08/26/17 04:01 51 22 110/55 (83) 99 08/26/17 04:00 36.4 08/26/17 04:00 99 Nasal Cannula 2.0 08/26/17 03:31 53 16 110/49 (57) 99 08/26/17 03:01 51 18 108/48 (71) 100 08/26/17 02:31 51 11 86/49 (65) 100 08/26/17 02:01 49 20 94/48 (72) 100 08/26/17 01:31 51 19 92/41 (64) 99 08/26/17 01:01 51 19 91/39 (73) 98 08/26/17 00:31 50 18 82/37 (54) 99 08/26/17 00:02 53 15 96/42 (75) 98 08/26/17 00:01 51 16 87/52 (63) 99 08/25/17 23:59 36.4 08/25/17 23:59 96 Nasal Cannula 2.0 08/25/17 23:46 48 19 87/35 (60) 98 08/25/17 23:30 52 22 88/37 (70) 96 08/25/17 23:16 52 21 79/39 (65) 97 08/25/17 23:00 54 20 83/44 (63) 96 08/25/17 22:46 61 24 68/37 (47) 96 08/25/17 22:31 57 21 89/41 (57) 97 08/25/17 22:16 58 15 86/41 (56) 95 08/25/17 21:45 58 24 97/49 (65) 98 08/25/17 21:31 58 24 97/41 (59) 97 08/25/17 21:16 57 22 99/49 (66) 97 08/25/17 21:00 58 19 90/51 (64) 97 08/25/17 20:49 59 25 94/50 (65) 98 08/25/17 20:31 59 22 98/48 (65) 96 08/25/17 20:16 59 15 109/47 (67) 98 08/25/17 20:01 63 21 105/44 (64) 98 Nasal Cannula 3.0 08/25/17 20:00 60 17 98 08/25/17 20:00 Nasal Cannula 3.0 08/25/17 19:16 60 28 108/47 (67) 98 08/25/17 19:01 53 25 94/50 (65) 97 08/25/17 18:46 60 19 101/56 (71) 100 08/25/17 18:01 61 23 108/41 (63) 08/25/17 18:00 55 27 110/85 (93) 100 08/25/17 17:46 55 24 108/50 (69) 99 08/25/17 17:32 60 25 68/61 (63) 08/25/17 17:30 63 24 81/45 (57) 100 08/25/17 17:15 58 22 68/36 (47) 96 08/25/17 17:08 51 27 63/25 (38) 91 08/25/17 17:05 58 19 58/22 (34) 91 08/25/17 17:04 36.4 58 19 64/30 (41) 91 Non-Rebreather 15.0 08/25/17 16:50 36.3 61 24 92/40 92 Nasal Cannula 4 98/46 (63) 08/25/17 16:40 36.3 62 24 96/47 96 Nasal Cannula 4 102/48 (64) 08/25/17 16:38 60 25 117/52 96 08/25/17 16:38 62 25 08/25/17 16:35 104/52 08/25/17 16:33 62 24 08/25/17 16:33 62 24 110/58 96 08/25/17 16:31 94/50 08/25/17 16:30 58 23 94/50 94 Oxymask 10 119/63 (77) 08/25/17 16:28 59 26 121/54 96 08/25/17 16:28 61 26 08/25/17 16:25 116/52 08/25/17 16:23 58 25 08/25/17 16:23 59 25 107/52 94 08/25/17 16:21 91/45 08/25/17 16:20 60 25 91/45 93 Oxymask 10 93/57 (68) 08/25/17 16:18 56 26 108/50 94 08/25/17 16:18 57 26 08/25/17 16:16 82/47 08/25/17 16:15 101/50 08/25/17 16:13 57 26 119/55 97 08/25/17 16:13 56 26 08/25/17 16:11 84/50 08/25/17 16:10 57 26 84/50 98 Oxymask 10 97/59 (68) 08/25/17 16:08 57 27 08/25/17 16:08 57 27 115/52 97 08/25/17 16:05 81/48 08/25/17 16:04 67/41 08/25/17 16:03 65 17 08/25/17 16:03 65 17 91 08/25/17 16:03 36.0 58 25 67/41 95 Oxymask 10 08/25/17 10:59 36.7 59 22 125/66 (85) 92 Room Air Laboratory Results: Last 24 Hours Test 08/25/17 12:37 08/25/17 17:21 08/25/17 17:33 08/26/17 00:01 Activated Partial Thromboplast Time 44.8 SECONDS Partial Thromboplastin Ratio 1.7 Hemoglobin 9.5 g/dL Hematocrit 30.8 % Sodium Level 132 mmol/L Potassium Level 3.5 mmol/L Chloride Level 96 mmol/L Carbon Dioxide Level 28 mmol/L Anion Gap 9.0 mmol/L Blood Urea Nitrogen 9 mg/dl Creatinine 0.80 mg/dl Est Creatinine Clear Calc Drug Dose 82.2 ml/min Estimated GFR () 102.7 Estimated GFR (Non- 88.6 BUN/Creatinine Ratio 10.7 Random Glucose 133 mg/dl Calcium Level 7.9 mg/dl Ionized Calcium 1.10 mmol/l Phosphorus Level 4.2 mg/dl Magnesium Level 1.8 mg/dl Blood Gas Sample Site Art Line Bedside Blood Gas pH (LAB) 7.34 Bedside Blood Gas pCO2 (LAB) 60 mmHg Bedside Blood Gas pO2 (LAB) 89 mmHg Bedside Blood Gas HCO3 (LAB) 32 meq/L Bedside Blood Gas Total CO2 34 mEq/l Bedside Blood Gas Base Excess (LAB) 7.0 meq/L Bedside Blood Gas O2 Saturation 96.0 % Chandler Test NA Oxygen Delivery Device NonRb Mask Bedside FiO2 0 % Bedside Glucose 144 mg/dl Test 08/26/17 02:52 08/26/17 05:51 White Blood Count 13.86 K/uL Red Blood Count 3.68 M/uL Hemoglobin 9.0 g/dL Hematocrit 29.1 % Mean Corpuscular Volume 79.1 fL Mean Corpuscular Hemoglobin 24.5 pg Mean Corpuscular Hemoglobin Concent 30.9 g/dl RDW Standard Deviation 55.9 fL RDW Coefficient of Variation 19.4 % Platelet Count 285 K/uL Mean Platelet Volume 9.9 fL Sodium Level 130 mmol/L Potassium Level 3.8 mmol/L Chloride Level 95 mmol/L Carbon Dioxide Level 29 mmol/L Anion Gap 6.0 mmol/L Blood Urea Nitrogen 11 mg/dl Creatinine 1.18 mg/dl Est Creatinine Clear Calc Drug Dose 55.8 ml/min Estimated GFR () 70.5 Estimated GFR (Non- 60.9 BUN/Creatinine Ratio 9.3 Random Glucose 150 mg/dl Calcium Level 7.6 mg/dl Phosphorus Level 3.4 mg/dl Magnesium Level 1.7 mg/dl Bedside Glucose 186 mg/dl
[2017-08-26] MEDS ORDERED: POTASSIUM CHLORIDE 20 MEQ TABCR PO STA (10:35)
[2017-08-26] MEDS ORDERED: MAGNESIUM SULFATE 1GM / D5W 1 GM in PREMIXED IN D5W 100 ML IV STA (10:36)
[2017-08-26] MEDS ORDERED: CALCIUM GLUCONATE 10% 1,000 MG in SODIUM CHLORIDE 0.9% 50ML 50 ML IV ONE (10:40)
[2017-08-26] MEDS ORDERED: MAGNESIUM OXIDE 400 MG TAB PO ONE (10:40)
--- NOTE | 2017-08-26 11:03 | Cardiology Follow-Up ---
Subjective Subjective Date of Service: Aug 26, 2017. Pt evaluation today including: conversation w/ patient, physical exam, chart review, lab review, review of studies, review of inpatient medication list Additional Details: Feeling well this morning. Chest pain improved, able to take a deep breath. Still hypotensive overnight requiring levophed. Bradycardic in 50s primarily - looks to be junctional rhythm vs AF with slow ventricular response. Problem List Medical Problems: (1) Alkaline phosphatase elevation Status: Acute (2) Anemia Status: Acute (3) Chest pain Status: Acute (4) Gastritis Status: Acute (5) Pleural effusion, bilateral Status: Acute Review of Systems Constitutional: No fever, No chills ENT: No unusual epistaxis Respiratory: No cough Cardiac: No chest pain Abdomen: No pain Male : No dysuria Psychiatric: No depression symptoms Heme: No abnormal bleeding/bruising Endo: No fatigue Skin: No rash Objective Vital Signs Last Vital Signs Documentation Date Time Temp Pulse Resp B/P (MAP) Pulse Ox O2 Delivery O2 Flow Rate FiO2 08/26/17 09:01 49 19 120/42 (68) 98 Nasal Cannula 1.0 08/26/17 07:32 36.5 Physical Exam: General Appearance: no apparent distress, + thin ENT: hearing grossly normal Neck: supple, no JVD Respiratory/Chest: no respiratory distress, no accessory muscle use, + decreased breath sounds (improved BS on right; rare crackle on right; dec BS at left base) Cardiovascular: regular rate, rhythm, + systolic murmur (3/6 systolic ejection murmur) Abdomen: normal bowel sounds, non tender Extremities: no pedal edema, no calf tenderness Neurologic/Psychiatric: alert Skin: normal color, warm/dry Assessment and Plan 1. Pleural effusion/Hemothorax now POD1 s/p thoracoscopy with decortication 2. Atrial flutter with RVR -- now bradycardic - appears to be junctional rhythm 3. Chronic systolic heart failure/ICM EF 35-40% 4. Multivessel CAD 5. Moderate to severe 6. Dysphagia/Unintentional weight loss 7. Anemia 8. Post-operative hypotension requiring pressors Persistent mild hypotension in the setting of junctional bradycardia Otherwise feeling well, improved dyspnea post decortication. On exam well perfused, mild congestion -- Hold metoprolol today -- For now continue amiodarone --> switch to 200mg daily -- Hold additional lasix for now -- Cautious additional fluids and wean off norepi as able -- Resume heparin infusion when safe from a surgical standpoint. Will continue to follow. Continued [facility] stay due to: multiple IV medications needed Discharge planning: home Medications: Current Inpatient Medications Medications (Trade) Dose Ordered Sig/Kaitlynn Route Start Time Stop Time Status Last Admin Dose Admin Magnesium Hydroxide (Milk Of Magnesia Susp) 30 ml Q6H PRN PO 08/18/17 17:30 09/17/17 17:29 Polyethylene (Miralax Powder Packet) 17 gm DAILY PRN PO 08/18/17 17:30 09/17/17 17:29 Ondansetron HCl (Zofran Inj) 4 mg Q6H PRN IV 08/18/17 17:30 09/17/17 17:29 08/22/17 11:11 4 MG Guaifenesin (Mucinex Contr Rel Tab) 600 mg Q12 PO 08/18/17 21:00 09/17/17 20:59 08/26/17 07:55 600 MG Hydroxyzine HCl (Vistaril Tab) 25 mg HS PRN PO 08/20/17 00:30 09/19/17 00:29 08/20/17 00:40 25 MG Bisacodyl (Dulcolax Tab) 10 mg DAILY PO 08/21/17 10:00 09/20/17 09:59 08/26/17 08:04 10 MG Polyethylene (Miralax Powder Packet) 17 gm DAILY PO 08/21/17 10:00 09/20/17 09:59 08/24/17 09:30 17 GM Bisacodyl (Dulcolax Supp) 10 mg DAILY PRN [place] 08/21/17 10:00 09/20/17 09:59 Atorvastatin Calcium (Lipitor Tab) 80 mg DAILY PO 08/23/17 09:00 09/22/17 08:59 08/26/17 10:01 80 MG Furosemide (Lasix Tab) 40 mg QAM PO 08/23/17 09:00 09/22/17 08:59 08/26/17 07:56 40 MG Multivitamins (Multivitamin Tab) 1 tab QAM PO 08/23/17 09:00 09/22/17 08:59 08/26/17 07:55 1 TAB Pantoprazole Sodium (Protonix Tab) 40 mg QAM PO 08/23/17 09:00 09/22/17 08:59 08/26/17 07:55 40 MG Senna (Senokot Tab) 8.6 mg QAM PO 08/23/17 09:00 09/22/17 08:59 08/26/17 07:55 8.6 MG Sertraline HCl (Zoloft Tab) 75 mg QAM PO 08/23/17 09:00 09/22/17 08:59 08/26/17 07:57 75 MG Benazepril HCl (Lotensin Tab) 20 mg QAM PO 08/23/17 09:00 09/22/17 08:59 Future Hold Bimatoprost (Lumigan 0.01%) 1 drops HS OP 08/22/17 21:00 09/21/17 20:59 08/25/17 21:58 1 DROPS Ferrous Sulfate (Feosol Tab) 325 mg BID PO 08/22/17 21:00 09/21/17 20:59 08/26/17 07:54 325 MG Metoprolol Succinate (Toprol Xl Tab) 25 mg BID PO 08/23/17 21:00 09/22/17 20:59 Future Hold 08/25/17 08:13 25 MG Oxycodone HCl (Roxicodone Immediate Rel Tab) 5 mg Q6H PRN PO 08/25/17 16:00 09/08/17 15:59 Enoxaparin Sodium (Lovenox Inj) 40 mg DAILY SQ 08/26/17 09:00 09/25/17 08:59 08/26/17 07:58 40 MG Ketorolac Tromethamine (Toradol Inj) 15 mg Q8H IV. 08/25/17 18:00 08/27/17 10:01 08/26/17 10:02 15 MG Metoclopramide HCl (Reglan Inj) 10 mg Q8@0000,0800,1600 IV. 08/25/17 16:00 09/24/17 15:59 08/26/17 08:04 10 MG Morphine Sulfate (MoRPHine SULFATE INJ) 2 mg Q1H PRN IV 08/25/17 16:00 09/08/17 15:59 Norepinephrine Bitartrate 8 mg/ Dextrose 508 ml @ 0 mls/hr Q0M PRN IV 08/25/17 21:00 09/24/17 20:59 08/26/17 02:25 26.3 MLS/HR Acetaminophen 1000 mg/Empty Bag 100 ml @ 400 mls/hr Q8H PRN IV 08/26/17 08:45 09/25/17 08:44 Amiodarone HCl (Cordarone Tab) 200 mg TID PO 08/26/17 10:00 09/25/17 09:59 Magnesium Sulfate 1 gm/Prmx 100 ml @ 100 mls/hr NOW STAT IV 08/26/17 10:06 08/26/17 11:05 UNV Magnesium Oxide (Mag-Ox Tab) 400 mg QAM PO 08/27/17 09:00 09/26/17 08:59 UNV Magnesium Oxide (Mag-Ox Tab) 400 mg 1006 ONCE PO 08/26/17 10:06 08/26/17 10:07 UNV Potassium Chloride (Klor-Con Tab) 40 meq NOW STAT PO 08/26/17 10:06 08/26/17 10:07 UNV Parenteral Electrolyte Solution 1,000 ml @ 75 mls/hr [id number] IV 08/26/17 10:15 09/25/17 10:14 UNV Calcium Gluconate 1000 mg/Sodium Chloride 60 ml @ 240 mls/hr NOW STAT IV 08/26/17 10:12 08/26/17 10:26 UNV Lab Results: 08/26/17 02:52 08/26/17 02:52 Test 08/25/17 12:37 08/25/17 17:21 08/25/17 17:33 08/26/17 02:52 Activated Partial Thromboplast Time 44.8 SECONDS (21.0-31.0) Partial Thromboplastin Ratio 1.7 Ionized Calcium 1.10 mmol/l (1.12-1.32) Blood Gas Sample Site Art Line Bedside Blood Gas pH (LAB) 7.34 (7.35-7.45) Bedside Blood Gas pCO2 (LAB) 60 mmHg (35-46) Bedside Blood Gas pO2 (LAB) 89 mmHg (80-95) Bedside Blood Gas HCO3 (LAB) 32 meq/L (19-24) Bedside Blood Gas Total CO2 34 mEq/l (24-31) Bedside Blood Gas Base Excess (LAB) 7.0 meq/L (-9-1.8) Bedside Blood Gas O2 Saturation 96.0 % (90-95) Chandler Test NA Oxygen Delivery Device NonRb Mask Bedside FiO2 0 % Red Blood Count 3.68 M/uL (4.7-6.1) Mean Corpuscular Volume 79.1 fL (80-100) Mean Corpuscular Hemoglobin 24.5 pg (25-34) Mean Corpuscular Hemoglobin Concent 30.9 g/dl (32-36) RDW Standard Deviation 55.9 fL (36.4-46.3) RDW Coefficient of Variation 19.4 % (11.5-14.5) Mean Platelet Volume 9.9 fL (7.4-10.4) Anion Gap 6.0 mmol/L (3-11) Est Creatinine Clear Calc Drug Dose 55.8 ml/min Estimated GFR () 70.5 Estimated GFR (Non- 60.9 BUN/Creatinine Ratio 9.3 (10-20) Calcium Level 7.6 mg/dl (8.5-10.1) Phosphorus Level 3.4 mg/dl (2.5-4.9) Magnesium Level 1.7 mg/dl (1.8-2.4) Test 08/26/17 05:51 Bedside Glucose 186 mg/dl (70-99) Date/Time Source Procedure Growth Status 08/25/17 18:33 Nasal MRSA DNA Surveillance Screen - Final Specimen Negative for MRSA by DNA Probe Complete
[2017-08-26] MEDS: NORMOSOL R 1,000 ML IV SCH (11:13)
[2017-08-26] MEDS: BIMATOPROST 0.01% OP SOLN 2.5 ML BTL OP SCH (20:49)
--- NOTE | 2017-08-26 22:14 | Progress Note ---
Subjective Date of Service: Aug 26, 2017. Subjective Patient reports feeling well today. Patient reports that he is able to take a deep breath without Chest pain improved, able to take a deep breath. Patient is off levophed in the evening. Problem List Medical Problems: (1) Alkaline phosphatase elevation Status: Acute (2) Anemia Status: Acute (3) Chest pain Status: Acute (4) Gastritis Status: Acute (5) Pleural effusion, bilateral Status: Acute Review of Systems Constitutional: No fever, No chills Respiratory: No sputum Cardiac: No orthopnea Abdomen: No pain, No nausea Musculoskeletal: No joint pain Neurologic: No memory loss, No paralysis Psychiatric: No depression symptoms Heme: No abnormal bleeding/bruising Endo: No fatigue Skin: No rash, No itch All Other Systems: Reviewed and Negative Medications Current Inpatient Medications Medications (Trade) Dose Ordered Sig/Kaitlynn Route Start Time Stop Time Status Last Admin Dose Admin Magnesium Hydroxide (Milk Of Magnesia Susp) 30 ml Q6H PRN PO 08/18/17 17:30 09/17/17 17:29 Polyethylene (Miralax Powder Packet) 17 gm DAILY PRN PO 08/18/17 17:30 09/17/17 17:29 Ondansetron HCl (Zofran Inj) 4 mg Q6H PRN IV 08/18/17 17:30 09/17/17 17:29 08/22/17 11:11 4 MG Guaifenesin (Mucinex Contr Rel Tab) 600 mg Q12 PO 08/18/17 21:00 09/17/17 20:59 08/27/17 08:45 600 MG Hydroxyzine HCl (Vistaril Tab) 25 mg HS PRN PO 08/20/17 00:30 09/19/17 00:29 08/20/17 00:40 25 MG Bisacodyl (Dulcolax Tab) 10 mg DAILY PO 08/21/17 10:00 09/20/17 09:59 08/27/17 08:52 10 MG Polyethylene (Miralax Powder Packet) 17 gm DAILY PO 08/21/17 10:00 09/20/17 09:59 08/27/17 08:49 17 GM Bisacodyl (Dulcolax Supp) 10 mg DAILY PRN NM 08/21/17 10:00 09/20/17 09:59 Atorvastatin Calcium (Lipitor Tab) 80 mg DAILY PO 08/23/17 09:00 09/22/17 08:59 08/27/17 08:47 80 MG Furosemide (Lasix Tab) 40 mg QAM PO 08/23/17 09:00 09/22/17 08:59 Future hold 08/26/17 07:56 40 MG Multivitamins (Multivitamin Tab) 1 tab QAM PO 08/23/17 09:00 09/22/17 08:59 08/27/17 08:45 1 TAB Pantoprazole Sodium (Protonix Tab) 40 mg QAM PO 08/23/17 09:00 09/22/17 08:59 08/27/17 08:49 40 MG Senna (Senokot Tab) 8.6 mg QAM PO 08/23/17 09:00 09/22/17 08:59 08/27/17 08:47 8.6 MG Sertraline HCl (Zoloft Tab) 75 mg QAM PO 08/23/17 09:00 09/22/17 08:59 08/27/17 08:45 75 MG Benazepril HCl (Lotensin Tab) 20 mg QAM PO 08/23/17 09:00 09/22/17 08:59 Future Hold Bimatoprost (Lumigan 0.01%) 1 drops HS OP 08/22/17 21:00 09/21/17 20:59 08/26/17 20:49 1 DROPS Ferrous Sulfate (Feosol Tab) 325 mg BID PO 08/22/17 21:00 09/21/17 20:59 08/27/17 08:47 325 MG Metoprolol Succinate (Toprol Xl Tab) 25 mg BID PO 08/23/17 21:00 09/22/17 20:59 Future Hold 08/25/17 08:13 25 MG Oxycodone HCl (Roxicodone Immediate Rel Tab) 5 mg Q6H PRN PO 08/25/17 16:00 09/08/17 15:59 Enoxaparin Sodium (Lovenox Inj) 40 mg DAILY SQ 08/26/17 09:00 09/25/17 08:59 08/27/17 08:49 40 MG Metoclopramide HCl (Reglan Inj) 10 mg Q8@0000,0800,1600 IV. 08/25/17 16:00 09/24/17 15:59 1/31/18 08:44 10 MG Morphine Sulfate (MoRPHine SULFATE INJ) 2 mg Q1H PRN IV 08/25/17 16:00 09/08/17 15:59 Acetaminophen 1000 mg/Empty Bag 100 ml @ 400 mls/hr Q8H PRN IV 08/26/17 08:45 09/25/17 08:44 08/27/17 00:10 400 MLS/HR Magnesium Oxide (Mag-Ox Tab) 400 mg QAM PO 08/27/17 09:00 09/26/17 08:59 Objective Vital Signs Date Time Temp Pulse Resp B/P (MAP) Pulse Ox O2 Delivery O2 Flow Rate FiO2 08/26/17 21:31 59 23 82/39 (53) 99 08/26/17 20:40 58 24 101/35 (57) 99 Nasal Cannula 1.0 08/26/17 20:39 59 21 86/33 (50) 100 08/26/17 20:02 36.6 59 21 106/31 (56) 98 08/26/17 20:00 100 Nasal Cannula 1.0 08/26/17 19:01 57 16 114/44 (67) 99 08/26/17 17:32 54 19 111/43 (65) 96 Nasal Cannula 1.0 08/26/17 17:01 50 24 104/45 (64) 08/26/17 16:15 54 24 107/43 (64) 08/26/17 16:01 52 25 89/34 (52) 100 08/26/17 16:00 100 Nasal Cannula 1.0 08/26/17 15:45 62 25 106/42 (63) 100 08/26/17 15:31 52 17 87/38 (54) 98 08/26/17 15:10 36.4 53 20 102/34 (56) 96 Nasal Cannula 1.0 08/26/17 14:31 50 17 96/38 (57) 100 08/26/17 14:30 50 16 08/26/17 14:15 49 19 104/41 (62) 100 08/26/17 14:01 49 17 97/40 (59) 100 08/26/17 14:00 47 17 08/26/17 13:46 47 20 96/34 (54) 96 08/26/17 13:45 49 19 08/26/17 13:31 48 19 100/40 (60) 99 08/26/17 13:30 51 18 100 08/26/17 13:16 48 20 91/36 (54) 93 08/26/17 13:15 48 17 94 08/26/17 13:01 48 17 89/36 (53) 100 08/26/17 13:00 48 19 08/26/17 12:46 48 18 92/38 (56) 99 08/26/17 12:45 45 18 08/26/17 12:44 46 20 97/40 (59) 98 08/26/17 12:31 52 18 71/42 (52) 98 08/26/17 12:30 52 24 99 08/26/17 12:16 47 22 101/35 (57) 100 08/26/17 12:15 50 25 97 08/26/17 12:01 51 20 83/38 (53) 98 08/26/17 12:00 45 22 100 08/26/17 11:46 36.4 54 29 78/32 (47) 98 Nasal Cannula 1.0 08/26/17 11:45 52 21 99 08/26/17 11:35 100 Nasal Cannula 1.0 08/26/17 11:31 54 27 78/31 (47) 97 08/26/17 11:30 50 24 98 08/26/17 11:17 52 25 93/36 (55) 95 08/26/17 11:15 49 16 99 08/26/17 11:01 48 19 93/40 (57) 100 08/26/17 11:00 48 23 08/26/17 10:45 45 14 112/48 (69) 100 08/26/17 10:32 55 23 86/36 (53) 100 08/26/17 10:30 51 20 08/26/17 10:16 53 22 92/48 (63) 99 08/26/17 10:15 53 15 92 08/26/17 10:05 63 24 113/39 (63) 08/26/17 10:00 51 19 08/26/17 09:45 48 21 99 08/26/17 09:32 50 18 107/30 (55) 08/26/17 09:30 47 23 08/26/17 09:15 50 17 99 08/26/17 09:01 49 19 120/42 (68) 98 Nasal Cannula 1.0 08/26/17 09:00 46 19 98 08/26/17 08:31 50 22 116/32 (60) 97 08/26/17 08:30 51 17 98 08/26/17 08:00 Nasal Cannula 08/26/17 08:00 51 15 98 08/26/17 07:32 36.5 56 17 85/ (28) 95 Nasal Cannula 1.0 08/26/17 07:30 95 Nasal Cannula 1.0 08/26/17 07:30 53 15 93 08/26/17 07:02 50 15 101/39 (59) 97 08/26/17 07:00 49 23 91 08/26/17 06:01 50 17 105/45 (59) 100 08/26/17 05:31 49 18 113/49 (96) 100 08/26/17 05:01 51 19 116/55 (94) 100 08/26/17 04:31 52 27 113/56 (83) 99 08/26/17 04:01 51 22 110/55 (83) 99 08/26/17 04:00 36.4 08/26/17 04:00 99 Nasal Cannula 2.0 08/26/17 03:31 53 16 110/49 (57) 99 08/26/17 03:01 51 18 108/48 (71) 100 08/26/17 02:31 51 11 86/49 (65) 100 08/26/17 02:01 49 20 94/48 (72) 100 08/26/17 01:31 51 19 92/41 (64) 99 08/26/17 01:01 51 19 91/39 (73) 98 08/26/17 00:31 50 18 82/37 (54) 99 08/26/17 00:02 53 15 96/42 (75) 98 08/26/17 00:01 51 16 87/52 (63) 99 08/25/17 23:59 36.4 08/25/17 23:59 96 Nasal Cannula 2.0 08/25/17 23:46 48 19 87/35 (60) 98 08/25/17 23:30 52 22 88/37 (70) 96 08/25/17 23:16 52 21 79/39 (65) 97 08/25/17 23:00 54 20 83/44 (63) 96 08/25/17 22:46 61 24 68/37 (47) 96 08/25/17 22:31 57 21 89/41 (57) 97 08/25/17 22:16 58 15 86/41 (56) 95 Physical Exam Comments: General Appearance: WDWN in NAD; thin HEENT: Head is normocephalic/atraumatic; Mucous membranes moist;s Neck: Supple; Trachea midline; Neg JVD; Neg lymphadenopathy Heart: RRR with systolic murmur Lungs: CTA in all lung hartmann bilaterally except for decreased breath sounds on left base Abdomen: Soft, non-tender, non-distended; Positive BS x 4 quadrants Extremities: Neg cyanosis or edema Neurological: Speech is mumbled due to no teeth but clear and appropriate; Neg focal neurologic deficits Psychiatric: Appropriate mood/affect Skin: Normal Color; Warm/Dry Laboratory Results Last 24 Hours Test 08/26/17 00:01 08/26/17 02:52 08/26/17 05:51 08/26/17 11:38 Bedside Glucose 144 mg/dl 186 mg/dl 166 mg/dl White Blood Count 13.86 K/uL Red Blood Count 3.68 M/uL Hemoglobin 9.0 g/dL Hematocrit 29.1 % Mean Corpuscular Volume 79.1 fL Mean Corpuscular Hemoglobin 24.5 pg Mean Corpuscular Hemoglobin Concent 30.9 g/dl RDW Standard Deviation 55.9 fL RDW Coefficient of Variation 19.4 % Platelet Count 285 K/uL Mean Platelet Volume 9.9 fL Sodium Level 130 mmol/L Potassium Level 3.8 mmol/L Chloride Level 95 mmol/L Carbon Dioxide Level 29 mmol/L Anion Gap 6.0 mmol/L Blood Urea Nitrogen 11 mg/dl Creatinine 1.18 mg/dl Est Creatinine Clear Calc Drug Dose 55.8 ml/min Estimated GFR () 70.5 Estimated GFR (Non- 60.9 BUN/Creatinine Ratio 9.3 Random Glucose 150 mg/dl Calcium Level 7.6 mg/dl Phosphorus Level 3.4 mg/dl Magnesium Level 1.7 mg/dl Test 08/26/17 16:28 08/26/17 20:43 Bedside Glucose 126 mg/dl 129 mg/dl Assessment and Plan This is a 71 yo M with PMHx of dilated cardiomyopathy with severe left ventricular dysfunction with EF equal to 45% in 08/2015, CAD s/p 3 DEZ to diagonal and distal RCA, and PDA in 03/2016, mild aortic stenosis hypertension, hyperlipidemia, elevated alkaline phosphatase, GERD, diverticulosis, depression , weight loss of 40 pounds in the past year, dysphagia, iron deficiency anemia, who presents after right thoracentesis performed by Dr. Lancaster on 08/18/17. Thoracic fluid was found to be purulent so he has been directly admitted to the hospital for IV antibiotics for empyema. Hypotensive after thoracoscopic extensive decortication of the right lung. Patient is now off pressors. Will monitor overnight. If patient remains normotensive, will downgrade to telemetry. R Complex Empyema and Complicated Pleural Effusion with R Pleur-X: -improved after procedure above. - Complete 7th day of zosyn today - Patient is breathing better now. SVT and Paroxysmal Atrial Fibrillation/Flutter: NSR Currently - on 08/22 patient went into SVT in pre-op. Adenosine 6 mg and 12 mg with converted to flutter and resulted hypotension from rhythm. Underwent unsuccessful cardioversion; Spontaneously converted to NSR on 08/23 and no further arrhythmias - Continue Amiodarone gtt until after surgical procedure and initiate Amiodarone 400 mg TID x 5 days then 400 mg daily - Continue to hold heparin as hemoglobin has been decreasing. will monitor. -- Discussed with patient who is in agreement for anticoagulation. - Digoxin D/C'd and initiate Toprol XL 25 mg BID - Cardiology following - recommendations appreciated - plan as above Chronic Systolic CHF/Dilated Cardiomyopathy with Severe LV Dysfunction - EF 45% : CAD S/P PCI - HTN/HLD: - Toprol XL 25 mg BID, Atorvastatin 80 mg daily - ASA on hold - Lasix 40 mg daily Dysphagia/Unintentional Weight Loss/GERD/RUQ Pain: - Ease of eating improved with dental soft diet - discussed with daughter as well and states they are making arrangements for new dentures -- Given weight loss likely needs to fitting - Dental soft diet - GI followed and S/O - recommend to continue Protonix - GREEN PLUMBER following - recommending moist regular diet Constipation: - Continue bowel regimen with Miralax, Dulcolax, Senna; PRN Suppositories DVT Prophylaxis: heparin on hold Code Status: FULL RESUSCITATION Continued [facility] stay due to: multiple IV medications needed Discharge planning: home
[2017-08-27] VITALS (11 sets, daily range): BP systolic 98–124; BP diastolic 33–57; PULSE 63–81; TEMP 36.4–36.7; O2SAT 90–99
[2017-08-27] MEDS: METOCLOPRAMIDE HCL INJ 5 MG/ML 2 ML VIAL IV. SCH ×4 (00:01→23:45)
[2017-08-27] MEDS: NORMOSOL R 1,000 ML IV SCH (00:01)
[2017-08-27] MEDS: KETOROLAC TROMETHAMINE 15 MG/ML VIAL IV. SCH ×2 (01:46→08:53)
[2017-08-27 05:58] LABS: HEMATOCRIT 25.1 % (42-52); HEMOGLOBIN 7.7 g/dL (14.0-18.0); MEAN CELL VOLUME 77.7 fL (80-100); MEAN CORPUSCULAR HEMOGLOBIN 23.8 pg (25-34); MEAN CORPUSCULAR HGB CONC 30.7 g/dl (32-36); PLATELET COUNT 181 K/uL (130-400); RED CELL DISTRIBUTION WIDTH CV 19.6 % (11.5-14.5); RED CELL DISTRIBUTION WIDTH SD 56.1 fL (36.4-46.3); WHITE BLOOD COUNT 6.58 K/uL (4.8-10.8)
[2017-08-27 06:45] LABS: CALCIUM 7.7 mg/dl (8.5-10.1); CREATININE 0.83 mg/dl (0.60-1.40); PHOSPHORUS 2.4 mg/dl (2.5-4.9); POTASSIUM 4.4 mmol/L (3.5-5.1)
--- NOTE | 2017-08-27 07:26 | DIAGNOSTIC IMAGING REPORT ---
CHEST ONE VIEW PORTABLE CLINICAL HISTORY: Decortication, Chest Tubes in place COMPARISON STUDY: 08/26/2017 FINDINGS: The cardiac and sternal contours remain stable. The 2 right-sided chest tubes remain unchanged in position. There is right-sided pleural thickening/fluid. There is a 5 mm right apical pneumothorax. There is a small left pleural effusion with associated left basilar airspace opacities. There is diffuse elevation of the interstitium. An element of pulmonary vascular congestion is suspected.[ IMPRESSION: 1. Increasing interstitial thickening, suggesting congestive failure/fluid overload 2. Tiny right sided pneumothorax. 3. No change in the position of the right-sided chest tubes Electronically signed by: Randell Walker M.D. 08/27/2017 7:25 AM Dictated Date/Time: 08/27/2017 7:23 AM
[2017-08-27] MEDS: GUAIFENESIN 600 MG TABCR PO SCH ×2 (08:45→20:46)
[2017-08-27] MEDS: MULTIVITAMIN TAB PO SCH (08:45)
[2017-08-27] MEDS: SERTRALINE HCL 50 MG TAB PO SCH (08:45)
[2017-08-27] MEDS: AMIODARONE 200 MG TAB PO SCH ×2 (08:46→20:45)
[2017-08-27] MEDS: SENNA 8.6 MG TAB PO SCH (08:47)
[2017-08-27] MEDS: FERROUS SULFATE 325 MG TAB PO SCH ×2 (08:47→20:45)
[2017-08-27] MEDS: ATORVASTATIN 40 MG TAB PO SCH (08:47)
[2017-08-27] MEDS: PANTOprazole SOD 40 MG TAB PO SCH (08:49)
[2017-08-27] MEDS: POLYETHYLENE (MIRALAX) 17 GM PACK PO SCH (08:49)
[2017-08-27] MEDS: MAGNESIUM OXIDE 400 MG TAB PO SCH (08:49)
[2017-08-27] MEDS: ENOXAPARIN 40 MG/0.4 ML SYR SQ SCH (08:49)
[2017-08-27] MEDS: BISACODYL 5 MG TABEC PO SCH (08:52)
[2017-08-27] MEDS ORDERED: POTASSIUM CHLORIDE 20 MEQ TABCR PO ONE (09:00)
[2017-08-27] MEDS ORDERED: POT PHOSPHATE MONOBASIC W/ SOD TAB PO ONE (09:00)
[2017-08-27] MEDS: FUROSEMIDE 40 MG TAB PO SCH (09:00)
[2017-08-27] MEDS ORDERED: FUROSEMIDE INJ 40 MG in SYRINGE 0 ML IV ONE (09:00)
[2017-08-27] MEDS ORDERED: NURSING VERBAL MED ORDER ONE ×3 (09:15→10:00)
--- NOTE | 2017-08-27 09:16 | Cardiology Follow-Up ---
Subjective Subjective Date of Service: Aug 27, 2017. Pt evaluation today including: conversation w/ patient, physical exam, chart review, lab review, review of studies, review of inpatient medication list Additional Details: No new complaints this morning. No chest pain. Breathing stable; now on 1L NC Tele reviewed -- no events; now 60-70s in sinus. Problem List Medical Problems: (1) Alkaline phosphatase elevation Status: Acute (2) Anemia Status: Acute (3) Chest pain Status: Acute (4) Gastritis Status: Acute (5) Pleural effusion, bilateral Status: Acute Review of Systems Constitutional: No fever, No chills ENT: No unusual epistaxis Respiratory: No cough Cardiac: No chest pain Abdomen: No pain Male : No dysuria Psychiatric: No depression symptoms Heme: No abnormal bleeding/bruising Endo: No fatigue Skin: No rash Objective Vital Signs Last Vital Signs Documentation Date Time Temp Pulse Resp B/P (MAP) Pulse Ox O2 Delivery O2 Flow Rate FiO2 08/27/17 06:00 63 19 109/41 (63) 95 Nasal Cannula 1.0 08/27/17 04:00 36.5 Physical Exam: General Appearance: no apparent distress, + thin ENT: hearing grossly normal Neck: supple Respiratory/Chest: no respiratory distress (mildly tachypneic), no accessory muscle use, + decreased breath sounds (improved BS on right; few scattered crackles; dec BS at left base), + pertinent finding (Chest tube in place draining serosanguinous fluid) Cardiovascular: regular rate, rhythm, + systolic murmur (3/6 systolic ejection murmur) Abdomen: normal bowel sounds, non tender Extremities: no pedal edema, no calf tenderness Neurologic/Psychiatric: alert Skin: normal color, warm/dry Assessment and Plan 1. Complicated Pleural effusion/Hemothorax now POD2 s/p thoracoscopy with decortication 2. Atrial flutter with RVR 3. Intermittent junctional bradycardia -- now back in sinus 4. Chronic systolic heart failure/ICM EF 35-40% -- pulmonary congestion on exam. 5. Multivessel CAD 6. Moderate to severe 7. Dysphagia/Unintentional weight loss 8. Anemia 9. Hyponatremia Pulmonary congestion on exam/chest xray after IVFs over last 2 days. Blood pressures stable off pressors. Back in normal sinus rhythm -- Diuresis today -- 40 IV lasix this AM --> goal > 1L negative today -- 2nd dose IV lasix this afternoon if inadequate response. -- Change amiodarone to 200mg BID -- Metoprolol on hold -- Resume anticoagulation when OK per surgery/blood counts stable. Will continue to follow. Continued [facility] stay due to: multiple IV medications needed Discharge planning: home Medications: Current Inpatient Medications Medications (Trade) Dose Ordered Sig/Kaitlynn Route Start Time Stop Time Status Last Admin Dose Admin Magnesium Hydroxide (Milk Of Magnesia Susp) 30 ml Q6H PRN PO 08/18/17 17:30 09/17/17 17:29 Polyethylene (Miralax Powder Packet) 17 gm DAILY PRN PO 08/18/17 17:30 09/17/17 17:29 Ondansetron HCl (Zofran Inj) 4 mg Q6H PRN IV 08/18/17 17:30 09/17/17 17:29 08/22/17 11:11 4 MG Guaifenesin (Mucinex Contr Rel Tab) 600 mg Q12 PO 08/18/17 21:00 09/17/17 20:59 08/27/17 08:45 600 MG Hydroxyzine HCl (Vistaril Tab) 25 mg HS PRN PO 08/20/17 00:30 09/19/17 00:29 08/20/17 00:40 25 MG Bisacodyl (Dulcolax Tab) 10 mg DAILY PO 08/21/17 10:00 09/20/17 09:59 08/27/17 08:52 10 MG Polyethylene (Miralax Powder Packet) 17 gm DAILY PO 08/21/17 10:00 09/20/17 09:59 08/27/17 08:49 17 GM Bisacodyl (Dulcolax Supp) 10 mg DAILY PRN LA 08/21/17 10:00 09/20/17 09:59 Atorvastatin Calcium (Lipitor Tab) 80 mg DAILY PO 08/23/17 09:00 09/22/17 08:59 08/27/17 08:47 80 MG Furosemide (Lasix Tab) 40 mg QAM PO 08/23/17 09:00 09/22/17 08:59 08/26/17 07:56 40 MG Multivitamins (Multivitamin Tab) 1 tab QAM PO 08/23/17 09:00 09/22/17 08:59 08/27/17 08:45 1 TAB Pantoprazole Sodium (Protonix Tab) 40 mg QAM PO 08/23/17 09:00 09/22/17 08:59 08/27/17 08:49 40 MG Senna (Senokot Tab) 8.6 mg QAM PO 08/23/17 09:00 09/22/17 08:59 08/27/17 08:47 8.6 MG Sertraline HCl (Zoloft Tab) 75 mg QAM PO 08/23/17 09:00 09/22/17 08:59 08/27/17 08:45 75 MG Benazepril HCl (Lotensin Tab) 20 mg QAM PO 08/23/17 09:00 09/22/17 08:59 Future Hold Bimatoprost (Lumigan 0.01%) 1 drops HS OP 08/22/17 21:00 09/21/17 20:59 08/26/17 20:49 1 DROPS Ferrous Sulfate (Feosol Tab) 325 mg BID PO 08/22/17 21:00 09/21/17 20:59 08/27/17 08:47 325 MG Metoprolol Succinate (Toprol Xl Tab) 25 mg BID PO 08/23/17 21:00 09/22/17 20:59 Future Hold 08/25/17 08:13 25 MG Oxycodone HCl (Roxicodone Immediate Rel Tab) 5 mg Q6H PRN PO 08/25/17 16:00 09/08/17 15:59 Enoxaparin Sodium (Lovenox Inj) 40 mg DAILY SQ 08/26/17 09:00 09/25/17 08:59 08/27/17 08:49 40 MG Ketorolac Tromethamine (Toradol Inj) 15 mg Q8H IV. 08/25/17 18:00 08/27/17 10:01 08/27/17 08:53 15 MG Metoclopramide HCl (Reglan Inj) 10 mg Q8@0000,0800,1600 IV. 08/25/17 16:00 09/24/17 15:59 08/27/17 08:44 10 MG Morphine Sulfate (MoRPHine SULFATE INJ) 2 mg Q1H PRN IV 08/25/17 16:00 09/08/17 15:59 Norepinephrine Bitartrate 8 mg/ Dextrose 508 ml @ 0 mls/hr Q0M PRN IV 08/25/17 21:00 09/24/17 20:59 08/26/17 02:25 26.3 MLS/HR Acetaminophen 1000 mg/Empty Bag 100 ml @ 400 mls/hr Q8H PRN IV 08/26/17 08:45 09/25/17 08:44 08/27/17 00:10 400 MLS/HR Amiodarone HCl (Cordarone Tab) 200 mg TID PO 08/26/17 10:00 09/25/17 09:59 08/27/17 08:46 200 MG Magnesium Oxide (Mag-Ox Tab) 400 mg QAM PO 08/27/17 09:00 09/26/17 08:59 08/27/17 08:49 400 MG Parenteral Electrolyte Solution 1,000 ml @ 75 mls/hr [id number] IV 08/26/17 10:15 09/25/17 10:14 08/27/17 00:01 75 MLS/HR Lab Results: 08/27/17 05:50 08/27/17 05:50 Test 08/27/17 01:54 08/27/17 05:50 Bedside Glucose 106 mg/dl (70-99) Red Blood Count 3.23 M/uL (4.7-6.1) Mean Corpuscular Volume 77.7 fL (80-100) Mean Corpuscular Hemoglobin 23.8 pg (25-34) Mean Corpuscular Hemoglobin Concent 30.7 g/dl (32-36) RDW Standard Deviation 56.1 fL (36.4-46.3) RDW Coefficient of Variation 19.6 % (11.5-14.5) Mean Platelet Volume 10.0 fL (7.4-10.4) Anion Gap 3.0 mmol/L (3-11) Est Creatinine Clear Calc Drug Dose 79.3 ml/min Estimated GFR () 101.2 Estimated GFR (Non- 87.3 BUN/Creatinine Ratio 18.1 (10-20) Calcium Level 7.7 mg/dl (8.5-10.1) Phosphorus Level 2.4 mg/dl (2.5-4.9) Magnesium Level 2.4 mg/dl (1.8-2.4)
--- NOTE | 2017-08-27 09:36 | SURGERY PROGRESS NOTE ---
DATE: 08/27/2017 Mr. Rizo was seen today sitting up eating breakfast. He looks quite good to me, although I do have a few concerns. I thought his x-ray looked good. He has still some postop changes in the right base, but I think his x-ray looks better. My concern is he looks to be a bit fluid overloaded. I think his pulmonary vasculature appears to be a bit full on the x-ray. In addition, his weight is up to 73.4 kilograms. He has made good urine with over 1400 mL yesterday and is clear. His chest tube has drained a fair amount. He drained a total of 489 mL yesterday, it is a serous fluid. He has no air leak. Otherwise x-ray looked pretty good. I am a bit concerned about a few things. His sodium is down to 128. His BUN and creatinine are improved. His creatinine is back down to 0.083. His hemoglobin is down today to 7.7, but I think this may be dilutional. I discussed this case with Dr. Ayden Chong and I think stopping his IV fluids and beginning gentle diuresis should be helpful. He is off all vasoactive amines now. His mean blood pressure have been anywhere from 58-72. He can be transferred to Telemetry. He will benefit from ambulation greatly. LEROY
[2017-08-27] MEDS ORDERED: HEPARIN IV LOW DOSE NO BOLUS STA (10:40)
--- NOTE | 2017-08-27 10:42 | Critical Care Progress Note ---
Critical Care Progress Note Date of Service Aug 27, 2017. ICU Day ICU Day Number: [address] Chong Subjective No complaints, slept better last night. Objective Vital Signs - as noted Laboratory Data - as noted Physical Exam: General - NAD, Eyes - PERRL, EOMI No icterus, gaze conjugate ENT - Mucosa moist Neck - Supple, trachea midline, no JVD or bruits Lungs -chest tube present, grade 1 airway leaks in both chest tubes Heart - Regular with rate in the 80's, 3/6 systolic murmur, No rubs, clicks, or gallops appreciated Abdomen -soft nontender nondistended Extremities - No edema, pedal pulses intact Neuro - A&OX4 Current SOFA Score SOFA Score Response (Comments) Value Platelets (x10) > 150 0 Bilirubin (mg/dL) < 1.2 0 Zeynep Coma Score 15 0 Level of Hypotension MAP less than 70 1 Creatinine (mg/dL) < 1.2 0 Total 1 Assessment & Plan PLAN: Resp: * Supplemental oxygen as required * Saturations adequate currently on 2L, Alert provider if oxygen requirement changes * Chest tube management per thoracic surgery CV: * Recent episode of A. Fib RVR, A. fib noted now with rate < 100 * Converted to oral amiodarone * Optimize Electrolytes, potassium greater than 4.5, magnesium greater than 2 * Heparin ok today per thoracic surgery discussions * Hypotension * resolved * Continue home Statin and BB * Cardiology Following: Appreciate input Neuro: * Continue home Zoloft Fluids/Renal: * Acute kidney injury secondary to operative procedure and operative stress * improved * Holding home ACEi * gentle diuresis today ID: * Abx: Complete Zosyn 08/26 (7 day total treatment) * Afebrile * WBC: 6.44 * Prior Lactic Acid Negative, Monitor GI/Nutrition: * Continue home bowel regimen * Diet orders * Protonix in place * GI following: Appreciate input * EGD by Dr. Cummins on 08/18/2017 Findings: - Gastric mucosal variant. Biopsied. 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 Will likely require long-term anticoagulation as an outpatient for paroxysmal A. fib Endocrine: Blood sugars in appropriate range Stable for downgrade to telemetry status. Consults & Procedures Consultants: Cardiology: Dr. Mata GI: Dr. Cummins Thoracic Surg: Dr. Lancaster Procedures: EGD: 08/20/17 Decortication: 08/25/17 Thoracentesis: 08/18/17 Data Medications: Current Inpatient Medications Medications (Trade) Dose Ordered Sig/Kaitlynn Route Start Time Stop Time Status Last Admin Dose Admin Magnesium Hydroxide (Milk Of Magnesia Susp) 30 ml Q6H PRN PO 08/18/17 17:30 09/17/17 17:29 Polyethylene (Miralax Powder Packet) 17 gm DAILY PRN PO 08/18/17 17:30 09/17/17 17:29 Ondansetron HCl (Zofran Inj) 4 mg Q6H PRN IV 08/18/17 17:30 09/17/17 17:29 08/22/17 11:11 4 MG Guaifenesin (Mucinex Contr Rel Tab) 600 mg Q12 PO 08/18/17 21:00 09/17/17 20:59 08/27/17 08:45 600 MG Hydroxyzine HCl (Vistaril Tab) 25 mg HS PRN PO 08/20/17 00:30 09/19/17 00:29 08/20/17 00:40 25 MG Bisacodyl (Dulcolax Tab) 10 mg DAILY PO 08/21/17 10:00 09/20/17 09:59 08/27/17 08:52 10 MG Polyethylene (Miralax Powder Packet) 17 gm DAILY PO 08/21/17 10:00 09/20/17 09:59 08/27/17 08:49 17 GM Bisacodyl (Dulcolax Supp) 10 mg DAILY PRN LA 08/21/17 10:00 09/20/17 09:59 Atorvastatin Calcium (Lipitor Tab) 80 mg DAILY PO 08/23/17 09:00 09/22/17 08:59 08/27/17 08:47 80 MG Furosemide (Lasix Tab) 40 mg QAM PO 08/23/17 09:00 09/22/17 08:59 Future hold 08/26/17 07:56 40 MG Multivitamins (Multivitamin Tab) 1 tab QAM PO 08/23/17 09:00 09/22/17 08:59 08/27/17 08:45 1 TAB Pantoprazole Sodium (Protonix Tab) 40 mg QAM PO 08/23/17 09:00 09/22/17 08:59 08/27/17 08:49 40 MG Senna (Senokot Tab) 8.6 mg QAM PO 08/23/17 09:00 09/22/17 08:59 08/27/17 08:47 8.6 MG Sertraline HCl (Zoloft Tab) 75 mg QAM PO 08/23/17 09:00 09/22/17 08:59 08/27/17 08:45 75 MG Benazepril HCl (Lotensin Tab) 20 mg QAM PO 08/23/17 09:00 09/22/17 08:59 Future Hold Bimatoprost (Lumigan 0.01%) 1 drops HS OP 08/22/17 21:00 09/21/17 20:59 08/26/17 20:49 1 DROPS Ferrous Sulfate (Feosol Tab) 325 mg BID PO 08/22/17 21:00 09/21/17 20:59 08/27/17 08:47 325 MG Metoprolol Succinate (Toprol Xl Tab) 25 mg BID PO 08/23/17 21:00 09/22/17 20:59 Future Hold 08/25/17 08:13 25 MG Oxycodone HCl (Roxicodone Immediate Rel Tab) 5 mg Q6H PRN PO 08/25/17 16:00 09/08/17 15:59 Enoxaparin Sodium (Lovenox Inj) 40 mg DAILY SQ 08/26/17 09:00 09/25/17 08:59 08/27/17 08:49 40 MG Ketorolac Tromethamine (Toradol Inj) 15 mg Q8H IV. 08/25/17 18:00 08/27/17 10:01 08/27/17 08:53 15 MG Metoclopramide HCl (Reglan Inj) 10 mg Q8@0000,0800,1600 IV. 08/25/17 16:00 09/24/17 15:59 08/27/17 08:44 10 MG Morphine Sulfate (MoRPHine SULFATE INJ) 2 mg Q1H PRN IV 08/25/17 16:00 09/08/17 15:59 Norepinephrine Bitartrate 8 mg/ Dextrose 508 ml @ 0 mls/hr Q0M PRN IV 08/25/17 21:00 09/24/17 20:59 08/26/17 02:25 26.3 MLS/HR Acetaminophen 1000 mg/Empty Bag 100 ml @ 400 mls/hr Q8H PRN IV 08/26/17 08:45 09/25/17 08:44 08/27/17 00:10 400 MLS/HR Magnesium Oxide (Mag-Ox Tab) 400 mg QAM PO 08/27/17 09:00 09/26/17 08:59 08/27/17 08:49 400 MG Parenteral Electrolyte Solution 1,000 ml @ 75 mls/hr [id number] IV 08/26/17 10:15 09/25/17 10:14 08/27/17 00:01 75 MLS/HR Amiodarone HCl (Cordarone Tab) 200 mg BID PO 08/27/17 21:00 09/26/17 20:59 Vital Signs: Date Time Temp Pulse Resp B/P (MAP) Pulse Ox O2 Delivery O2 Flow Rate FiO2 08/27/17 08:00 36.4 78 32 124/57 (79) 95 Nasal Cannula 2.0 08/27/17 08:00 Nasal Cannula 2.0 08/27/17 06:00 63 19 109/41 (63) 95 Nasal Cannula 1.0 08/27/17 04:00 36.5 67 21 120/48 (72) 93 Nasal Cannula 1.0 08/27/17 04:00 Nasal Cannula 1.0 08/27/17 02:00 63 15 101/43 (62) 93 Nasal Cannula 1.0 08/27/17 00:01 36.7 64 19 98/39 (58) 96 Nasal Cannula 1.0 08/26/17 23:59 Nasal Cannula 1.0 08/26/17 22:00 62 23 105/43 (63) 98 08/26/17 21:31 59 23 82/39 (53) 99 08/26/17 20:40 58 24 101/35 (57) 99 Nasal Cannula 1.0 08/26/17 20:39 59 21 86/33 (50) 100 08/26/17 20:02 36.6 59 21 106/31 (56) 98 08/26/17 20:00 100 Nasal Cannula 1.0 08/26/17 19:01 57 16 114/44 (67) 99 08/26/17 17:32 54 19 111/43 (65) 96 Nasal Cannula 1.0 08/26/17 17:01 50 24 104/45 (64) 08/26/17 16:15 54 24 107/43 (64) 08/26/17 16:01 52 25 89/34 (52) 100 08/26/17 16:00 100 Nasal Cannula 1.0 08/26/17 15:45 62 25 106/42 (63) 100 08/26/17 15:31 52 17 87/38 (54) 98 08/26/17 15:10 36.4 53 20 102/34 (56) 96 Nasal Cannula 1.0 08/26/17 14:31 50 17 96/38 (57) 100 08/26/17 14:30 50 16 08/26/17 14:15 49 19 104/41 (62) 100 08/26/17 14:01 49 17 97/40 (59) 100 08/26/17 14:00 47 17 08/26/17 13:46 47 20 96/34 (54) 96 08/26/17 13:45 49 19 08/26/17 13:31 48 19 100/40 (60) 99 08/26/17 13:30 51 18 100 08/26/17 13:16 48 20 91/36 (54) 93 08/26/17 13:15 48 17 94 08/26/17 13:01 48 17 89/36 (53) 100 08/26/17 13:00 48 19 08/26/17 12:46 48 18 92/38 (56) 99 08/26/17 12:45 45 18 08/26/17 12:44 46 20 97/40 (59) 98 08/26/17 12:31 52 18 71/42 (52) 98 08/26/17 12:30 52 24 99 08/26/17 12:16 47 22 101/35 (57) 100 08/26/17 12:15 50 25 97 08/26/17 12:01 51 20 83/38 (53) 98 08/26/17 12:00 45 22 100 08/26/17 11:46 36.4 54 29 78/32 (47) 98 Nasal Cannula 1.0 08/26/17 11:45 52 21 99 08/26/17 11:35 100 Nasal Cannula 1.0 08/26/17 11:31 54 27 78/31 (47) 97 08/26/17 11:30 50 24 98 08/26/17 11:17 52 25 93/36 (55) 95 08/26/17 11:15 49 16 99 08/26/17 11:01 48 19 93/40 (57) 100 08/26/17 11:00 48 23 08/26/17 10:45 45 14 112/48 (69) 100 08/26/17 10:32 55 23 86/36 (53) 100 08/26/17 10:30 51 20 08/26/17 10:16 53 22 92/48 (63) 99 08/26/17 10:15 53 15 92 08/26/17 10:05 63 24 113/39 (63) 08/26/17 10:00 51 19 Laboratory Results: Last 24 Hours Test 08/26/17 11:38 08/26/17 16:28 08/26/17 20:43 08/27/17 01:54 Bedside Glucose 166 mg/dl 126 mg/dl 129 mg/dl 106 mg/dl Test 08/27/17 05:50 White Blood Count 6.58 K/uL Red Blood Count 3.23 M/uL Hemoglobin 7.7 g/dL Hematocrit 25.1 % Mean Corpuscular Volume 77.7 fL Mean Corpuscular Hemoglobin 23.8 pg Mean Corpuscular Hemoglobin Concent 30.7 g/dl RDW Standard Deviation 56.1 fL RDW Coefficient of Variation 19.6 % Platelet Count 181 K/uL Mean Platelet Volume 10.0 fL Sodium Level 128 mmol/L Potassium Level 4.4 mmol/L Chloride Level 95 mmol/L Carbon Dioxide Level 30 mmol/L Anion Gap 3.0 mmol/L Blood Urea Nitrogen 15 mg/dl Creatinine 0.83 mg/dl Est Creatinine Clear Calc Drug Dose 79.3 ml/min Estimated GFR () 101.2 Estimated GFR (Non- 87.3 BUN/Creatinine Ratio 18.1 Random Glucose 87 mg/dl Calcium Level 7.7 mg/dl Phosphorus Level 2.4 mg/dl Magnesium Level 2.4 mg/dl
[2017-08-27 16:13] LABS: HEMATOCRIT 27.1 % (42-52); HEMOGLOBIN 8.2 g/dL (14.0-18.0)
[2017-08-27] MEDS: BIMATOPROST 0.01% OP SOLN 2.5 ML BTL OP SCH (20:45)
[2017-08-27] MEDS: OXYCODONE HCL IR 5 MG TAB (IMMEDIATE RELEASE) PO PRN (21:34)
--- NOTE | 2017-08-27 23:40 | Progress Note ---
Subjective Date of Service: Aug 27, 2017. Subjective Pt evaluation today including: conversation w/ patient, physical exam Patient has no complaints this AM. Problem List Medical Problems: (1) Alkaline phosphatase elevation Status: Acute (2) Anemia Status: Acute (3) Chest pain Status: Acute (4) Gastritis Status: Acute (5) Pleural effusion, bilateral Status: Acute Review of Systems Constitutional: No fever, No chills Eyes: No worsening of vision ENT: No hearing loss Respiratory: No sputum Cardiac: No chest pain Abdomen: No pain Musculoskeletal: No joint pain Endo: No fatigue Skin: No rash All Other Systems: Reviewed and Negative Medications Current Inpatient Medications Medications (Trade) Dose Ordered Sig/Kaitlynn Route Start Time Stop Time Status Last Admin Dose Admin Magnesium Hydroxide (Milk Of Magnesia Susp) 30 ml Q6H PRN PO 08/18/17 17:30 09/17/17 17:29 08/27/17 13:02 30 ML Polyethylene (Miralax Powder Packet) 17 gm DAILY PRN PO 08/18/17 17:30 09/17/17 17:29 Ondansetron HCl (Zofran Inj) 4 mg Q6H PRN IV 08/18/17 17:30 09/17/17 17:29 08/22/17 11:11 4 MG Guaifenesin (Mucinex Contr Rel Tab) 600 mg Q12 PO 08/18/17 21:00 09/17/17 20:59 08/27/17 20:46 600 MG Hydroxyzine HCl (Vistaril Tab) 25 mg HS PRN PO 08/20/17 00:30 09/19/17 00:29 08/20/17 00:40 25 MG Bisacodyl (Dulcolax Tab) 10 mg DAILY PO 08/21/17 10:00 09/20/17 09:59 08/27/17 08:52 10 MG Polyethylene (Miralax Powder Packet) 17 gm DAILY PO 08/21/17 10:00 09/20/17 09:59 08/27/17 08:49 17 GM Bisacodyl (Dulcolax Supp) 10 mg DAILY PRN [place] 08/21/17 10:00 09/20/17 09:59 Atorvastatin Calcium (Lipitor Tab) 80 mg DAILY PO 08/23/17 09:00 09/22/17 08:59 08/27/17 08:47 80 MG Furosemide (Lasix Tab) 40 mg QAM PO 08/23/17 09:00 09/22/17 08:59 Future hold 08/26/17 07:56 40 MG Multivitamins (Multivitamin Tab) 1 tab QAM PO 08/23/17 09:00 09/22/17 08:59 08/27/17 08:45 1 TAB Pantoprazole Sodium (Protonix Tab) 40 mg QAM PO 08/23/17 09:00 09/22/17 08:59 08/27/17 08:49 40 MG Senna (Senokot Tab) 8.6 mg QAM PO 08/23/17 09:00 09/22/17 08:59 08/27/17 08:47 8.6 MG Sertraline HCl (Zoloft Tab) 75 mg QAM PO 08/23/17 09:00 09/22/17 08:59 08/27/17 08:45 75 MG Benazepril HCl (Lotensin Tab) 20 mg QAM PO 08/23/17 09:00 09/22/17 08:59 Future Hold Bimatoprost (Lumigan 0.01%) 1 drops HS OP 08/22/17 21:00 09/21/17 20:59 08/27/17 20:45 1 DROPS Ferrous Sulfate (Feosol Tab) 325 mg BID PO 08/22/17 21:00 09/21/17 20:59 08/27/17 20:45 325 MG Metoprolol Succinate (Toprol Xl Tab) 25 mg BID PO 08/23/17 21:00 09/22/17 20:59 Future Hold 08/25/17 08:13 25 MG Oxycodone HCl (Roxicodone Immediate Rel Tab) 5 mg Q6H PRN PO 08/25/17 16:00 09/08/17 15:59 08/28/17 03:23 5 MG Enoxaparin Sodium (Lovenox Inj) 40 mg DAILY SQ 08/26/17 09:00 09/25/17 08:59 08/27/17 08:49 40 MG Metoclopramide HCl (Reglan Inj) 10 mg Q8@0000,0800,1600 IV. 08/25/17 16:00 09/24/17 15:59 08/27/17 23:45 10 MG Morphine Sulfate (MoRPHine SULFATE INJ) 2 mg Q1H PRN IV 08/25/17 16:00 09/08/17 15:59 08/28/17 00:14 2 MG Acetaminophen 1000 mg/Empty Bag 100 ml @ 400 mls/hr Q8H PRN IV 08/26/17 08:45 09/25/17 08:44 08/27/17 00:10 400 MLS/HR Magnesium Oxide (Mag-Ox Tab) 400 mg QAM PO 08/27/17 09:00 09/26/17 08:59 08/27/17 08:49 400 MG Amiodarone HCl (Cordarone Tab) 200 mg BID PO 08/27/17 21:00 09/26/17 20:59 08/27/17 20:45 200 MG Objective Vital Signs Date Time Temp Pulse Resp B/P (MAP) Pulse Ox O2 Delivery O2 Flow Rate FiO2 08/27/17 20:00 36.7 81 24 119/33 (61) 91 Nasal Cannula 1.0 08/27/17 20:00 91 Nasal Cannula 1.0 08/27/17 16:00 36.4 71 19 115/46 (69) 94 Nasal Cannula 1.0 08/27/17 16:00 94 Nasal Cannula 1.0 08/27/17 12:00 Room Air 08/27/17 12:00 36.4 66 23 115/46 (69) 99 Nasal Cannula 2.0 08/27/17 10:00 75 25 108/50 (69) 90 Nasal Cannula 2.0 08/27/17 08:00 36.4 78 32 124/57 (79) 95 Nasal Cannula 2.0 08/27/17 08:00 Nasal Cannula 08/27/17 08:00 Nasal Cannula 2.0 08/27/17 06:00 63 19 109/41 (63) 95 Nasal Cannula 1.0 08/27/17 04:00 36.5 67 21 120/48 (72) 93 Nasal Cannula 1.0 08/27/17 04:00 Nasal Cannula 1.0 08/27/17 02:00 63 15 101/43 (62) 93 Nasal Cannula 1.0 08/27/17 00:01 36.7 64 19 98/39 (58) 96 Nasal Cannula 1.0 08/26/17 23:59 Nasal Cannula 1.0 Physical Exam Comments: General Appearance: WDWN in NAD; thin HEENT: Head is normocephalic/atraumatic; Mucous membranes moist; Pharynx negative for exudate/lesions; Neck: Supple; Trachea midline; Neg JVD; Neg lymphadenopathy Chest: Chest tube noted on right lower chest wall Heart: RRR with systolic murmur Lungs: CTA in all lung hartmann bilaterally but diminished at bases - takes short inspirations; Respirations unlabored; Neg accessory muscle use; R lower lung field PleurX Abdomen: Soft, non-tender, non-distended; Positive BS x 4 quadrants Extremities: Neg cyanosis or edema Neurological: Speech is clearer today Neg focal neurologic deficits Psychiatric: Appropriate mood/affect Skin: ; Normal Color; Warm/Dry Laboratory Results Last 24 Hours Test 08/27/17 01:54 08/27/17 05:50 08/27/17 06:41 08/27/17 16:00 Bedside Glucose 106 mg/dl 110 mg/dl White Blood Count 6.58 K/uL Red Blood Count 3.23 M/uL Hemoglobin 7.7 g/dL 8.2 g/dL Hematocrit 25.1 % 27.1 % Mean Corpuscular Volume 77.7 fL Mean Corpuscular Hemoglobin 23.8 pg Mean Corpuscular Hemoglobin Concent 30.7 g/dl RDW Standard Deviation 56.1 fL RDW Coefficient of Variation 19.6 % Platelet Count 181 K/uL Mean Platelet Volume 10.0 fL Sodium Level 128 mmol/L Potassium Level 4.4 mmol/L Chloride Level 95 mmol/L Carbon Dioxide Level 30 mmol/L Anion Gap 3.0 mmol/L Blood Urea Nitrogen 15 mg/dl Creatinine 0.83 mg/dl Est Creatinine Clear Calc Drug Dose 79.3 ml/min Estimated GFR () 101.2 Estimated GFR (Non- 87.3 BUN/Creatinine Ratio 18.1 Random Glucose 87 mg/dl Calcium Level 7.7 mg/dl Phosphorus Level 2.4 mg/dl Magnesium Level 2.4 mg/dl Assessment and Plan This is a 71 yo M with PMHx of dilated cardiomyopathy with severe left ventricular dysfunction with EF equal to 45% in 08/2015, CAD s/p 3 DEZ to diagonal and distal RCA, and PDA in 03/2016, mild aortic stenosis hypertension, hyperlipidemia, elevated alkaline phosphatase, GERD, diverticulosis, depression , weight loss of 40 pounds in the past year, dysphagia, iron deficiency anemia, who presents after right thoracentesis performed by Dr. Lancaster on 08/18/17. Thoracic fluid was found to be purulent so he has been directly admitted to the hospital for IV antibiotics for empyema. Hypotensive after thoracoscopic extensive decortication of the right lung. Resolved. Will downgrade from ICU. R Complex Empyema and Complicated Pleural Effusion with R Pleur-X: -improved after procedure above. - Completed 7th day of zosyn today - Patient is breathing better now. SVT and Paroxysmal Atrial Fibrillation/Flutter: NSR Currently - on 08/22 patient went into SVT in pre-op. Adenosine 6 mg and 12 mg with converted to flutter and resulted hypotension from rhythm. Underwent unsuccessful cardioversion; Spontaneously converted to NSR on 08/23 and no further arrhythmias - Continue Amiodarone gtt until after surgical procedure and initiate Amiodarone 400 mg TID x 5 days then 400 mg daily - Continue to hold heparin as hemoglobin has been decreasing. will monitor. -- Discussed with patient who is in agreement for anticoagulation. - Digoxin D/C'd and initiate Toprol XL 25 mg BID - Cardiology following - recommendations appreciated - plan as above -May beenfit from coumadin as this is rapidly reversible given his anemia. Anemia Likely dilutional. Gave IV lasix. will monitor Chronic Systolic CHF/Dilated Cardiomyopathy with Severe LV Dysfunction - EF 45% : CAD S/P PCI - HTN/HLD: - Toprol XL 25 mg BID, Atorvastatin 80 mg daily - ASA on hold -lasix IV given today Dysphagia/Unintentional Weight Loss/GERD/RUQ Pain: - Ease of eating improved with dental soft diet - discussed with daughter as well and states they are making arrangements for new dentures -- Given weight loss likely needs to fitting - Dental soft diet - GI followed and S/O - recommend to continue Protonix - DRIFTMAN following - recommending moist regular diet Constipation: - Continue bowel regimen with Miralax, Dulcolax, Senna; PRN Suppositories DVT Prophylaxis: heparin on hold Code Status: FULL RESUSCITATION Continued [facility] stay due to: multiple IV medications needed Discharge planning: home
[2017-08-28] VITALS (9 sets, daily range): BP systolic 92–115; BP diastolic 40–48; PULSE 65–88; TEMP 36.4–37; O2SAT 94–99
[2017-08-28] MEDS: MoRPHine SULFATE 2 MG/ML CARP IV PRN (00:14)
[2017-08-28] MEDS: OXYCODONE HCL IR 5 MG TAB (IMMEDIATE RELEASE) PO PRN ×3 (03:23→23:03)
[2017-08-28] MEDS: METOCLOPRAMIDE HCL INJ 5 MG/ML 2 ML VIAL IV. SCH ×3 (08:08→23:02)
[2017-08-28] MEDS: AMIODARONE 200 MG TAB PO SCH ×2 (08:09→20:19)
[2017-08-28] MEDS: FUROSEMIDE 40 MG TAB PO SCH (08:11)
[2017-08-28] MEDS: FERROUS SULFATE 325 MG TAB PO SCH ×2 (08:11→20:19)
[2017-08-28] MEDS: ATORVASTATIN 40 MG TAB PO SCH (08:12)
[2017-08-28] MEDS: MAGNESIUM OXIDE 400 MG TAB PO SCH (08:12)
[2017-08-28] MEDS: POLYETHYLENE (MIRALAX) 17 GM PACK PO SCH (08:12)
[2017-08-28] MEDS: SENNA 8.6 MG TAB PO SCH (08:13)
[2017-08-28] MEDS: PANTOprazole SOD 40 MG TAB PO SCH (08:13)
[2017-08-28] MEDS: GUAIFENESIN 600 MG TABCR PO SCH ×2 (08:13→20:20)
[2017-08-28] MEDS: MULTIVITAMIN TAB PO SCH (08:13)
[2017-08-28] MEDS: SERTRALINE HCL 50 MG TAB PO SCH (08:14)
[2017-08-28] MEDS: ENOXAPARIN 40 MG/0.4 ML SYR SQ SCH (08:14)
[2017-08-28] MEDS: BISACODYL 5 MG TABEC PO SCH (08:15)
[2017-08-28 08:18] LABS: HEMOGLOBIN 7.9 g/dL (14.0-18.0); MEAN CELL VOLUME 78.5 fL (80-100); MEAN CORPUSCULAR HEMOGLOBIN 23.9 pg (25-34); MEAN CORPUSCULAR HGB CONC 30.4 g/dl (32-36); MEAN PLATELET VOLUME 9.2 fL (7.4-10.4); PLATELET COUNT 222 K/uL (130-400); RED CELL DISTRIBUTION WIDTH CV 19.7 % (11.5-14.5); RED CELL DISTRIBUTION WIDTH SD 56.8 fL (36.4-46.3)
[2017-08-28 08:34] LABS: CREATININE 0.7 mg/dl (0.60-1.40); POTASSIUM 4.6 mmol/L (3.5-5.1)
--- NOTE | 2017-08-28 09:10 | SURGERY PROGRESS NOTE ---
DATE: 08/28/2017 Mr. Rizo looks very good today. The only problem I have with Mr. Rizo is the fact that his diastolic blood pressure remains low. He is sitting up, eating a regular breakfast. He is on 2 liters with 97% saturations. Heart rate is in the 70s and regular sinus rhythm. His means have been above 60 but he still has a blood pressure of 112/41 by noninvasives today. The pathology of his peel and pleural contents is all benign and appears to have been due to hemothorax. His chest tube output has come down considerably. He put out a total of 530 yesterday but is only 50 mL the first shift today. His sodium is up to 131. His BUN and creatinine remain low at 11 and 0.7. His weight is also down as he diuresed 2000 mL yesterday. I believe that we can probably go down further. His chest tubes are not quite ready to come out yet; will have to check a chest x-ray in the morning. He has been ambulating. I think he looks very good. ASSESSMENT AND PLAN: Postoperative day #3 status post extensive decortication and evacuation of right hemothorax. He looks quite good. I would like to leave him on suction for another 24 hours and check a chest x-ray.
--- NOTE | 2017-08-28 09:59 | Cardiology Follow-Up ---
Subjective Subjective Date of Service: Aug 28, 2017. Pt evaluation today including: conversation w/ patient, physical exam, chart review, lab review, review of studies, review of inpatient medication list Additional Details: Feeling well this morning. Breathing continues to be easier following surgery. Up walking halls for later without issue. Denies any significant pain After diuresis yesterday negative~ 750, down almost 2 kg. Telemetry reviewed--no events noted, in sinus rhythm in 60s to 70s today Problem List Medical Problems: (1) Alkaline phosphatase elevation Status: Acute (2) Anemia Status: Acute (3) Chest pain Status: Acute (4) Gastritis Status: Acute (5) Pleural effusion, bilateral Status: Acute Review of Systems Constitutional: No fever, No chills Eyes: No worsening of vision ENT: No hearing loss Respiratory: No sputum Cardiac: No chest pain Abdomen: No pain Musculoskeletal: No joint pain Male : No dysuria Neurologic: No memory loss, No paralysis Psychiatric: No depression symptoms Heme: No abnormal bleeding/bruising Endo: No fatigue Skin: No rash Objective Vital Signs Last Vital Signs Documentation Date Time Temp Pulse Resp B/P (MAP) Pulse Ox O2 Delivery O2 Flow Rate FiO2 08/28/17 07:14 36.4 73 20 112/41 (64) 96 Nasal Cannula 2.0 Physical Exam: General Appearance: no apparent distress, + thin ENT: hearing grossly normal Neck: supple Respiratory/Chest: no respiratory distress, no accessory muscle use, + decreased breath sounds (At bases bilaterally), + pertinent finding (Chest tubes in place, draining serosanguineous fluid) Cardiovascular: regular rate, rhythm, + systolic murmur (3/6 systolic ejection murmur at left upper sternal border) Abdomen: normal bowel sounds, non tender Extremities: no pedal edema, no calf tenderness Neurologic/Psychiatric: alert Skin: normal color, warm/dry Assessment and Plan 1. Complicated Pleural effusion/Hemothorax now POD3 s/p thoracoscopy with decortication 2. Atrial flutter with RVR 3. Intermittent junctional bradycardia -- now back in sinus 4. Chronic systolic heart failure/ICM EF 35-40% . 5. Multivessel CAD 6. Moderate to severe 7. Dysphagia/Unintentional weight loss 8. Anemia 9. Hyponatremia Well perfused, still with congestion on exam today. Diastolic blood pressure is low but systolic pressures have been stable. Remains in sinus rhythm today. --recommend continued diuresis--okay with p.o. diuretics this morning in the setting relatively low blood pressures. If positive/net even today would give another dose of IV Lasix tomorrow. --Continue amiodarone 200 mg b.i.d. --current metoprolol, JACQUE-inhibitor on hold --Blood counts low but stable would ideally resume heparin today. Will continue follow-up. Continued [facility] stay due to: multiple IV medications needed Discharge planning: home Medications: Current Inpatient Medications Medications (Trade) Dose Ordered Sig/Kaitlynn Route Start Time Stop Time Status Last Admin Dose Admin Magnesium Hydroxide (Milk Of Magnesia Susp) 30 ml Q6H PRN PO 08/18/17 17:30 09/17/17 17:29 08/27/17 13:02 30 ML Polyethylene (Miralax Powder Packet) 17 gm DAILY PRN PO 08/18/17 17:30 09/17/17 17:29 Ondansetron HCl (Zofran Inj) 4 mg Q6H PRN IV 08/18/17 17:30 09/17/17 17:29 08/22/17 11:11 4 MG Guaifenesin (Mucinex Contr Rel Tab) 600 mg Q12 PO 08/18/17 21:00 09/17/17 20:59 08/28/17 08:13 600 MG Hydroxyzine HCl (Vistaril Tab) 25 mg HS PRN PO 08/20/17 00:30 09/19/17 00:29 08/20/17 00:40 25 MG Bisacodyl (Dulcolax Tab) 10 mg DAILY PO 08/21/17 10:00 09/20/17 09:59 08/28/17 08:15 10 MG Polyethylene (Miralax Powder Packet) 17 gm DAILY PO 08/21/17 10:00 09/20/17 09:59 08/28/17 08:12 17 GM Bisacodyl (Dulcolax Supp) 10 mg DAILY PRN [place] 08/21/17 10:00 09/20/17 09:59 Atorvastatin Calcium (Lipitor Tab) 80 mg DAILY PO 08/23/17 09:00 09/22/17 08:59 08/28/17 08:12 80 MG Furosemide (Lasix Tab) 40 mg QAM PO 08/23/17 09:00 09/22/17 08:59 Future hold 08/28/17 08:11 40 MG Multivitamins (Multivitamin Tab) 1 tab QAM PO 08/23/17 09:00 09/22/17 08:59 08/28/17 08:13 1 TAB Pantoprazole Sodium (Protonix Tab) 40 mg QAM PO 08/23/17 09:00 09/22/17 08:59 08/28/17 08:13 40 MG Senna (Senokot Tab) 8.6 mg QAM PO 08/23/17 09:00 09/22/17 08:59 08/28/17 08:13 8.6 MG Sertraline HCl (Zoloft Tab) 75 mg QAM PO 08/23/17 09:00 09/22/17 08:59 08/28/17 08:14 75 MG Benazepril HCl (Lotensin Tab) 20 mg QAM PO 08/23/17 09:00 09/22/17 08:59 Future Hold Bimatoprost (Lumigan 0.01%) 1 drops HS OP 08/22/17 21:00 09/21/17 20:59 08/27/17 20:45 1 DROPS Ferrous Sulfate (Feosol Tab) 325 mg BID PO 08/22/17 21:00 09/21/17 20:59 08/28/17 08:11 325 MG Metoprolol Succinate (Toprol Xl Tab) 25 mg BID PO 08/23/17 21:00 09/22/17 20:59 Future Hold 08/25/17 08:13 25 MG Oxycodone HCl (Roxicodone Immediate Rel Tab) 5 mg Q6H PRN PO 08/25/17 16:00 09/08/17 15:59 08/28/17 03:23 5 MG Enoxaparin Sodium (Lovenox Inj) 40 mg DAILY SQ 08/26/17 09:00 09/25/17 08:59 08/28/17 08:14 40 MG Metoclopramide HCl (Reglan Inj) 10 mg Q8@0000,0800,1600 IV. 08/25/17 16:00 09/24/17 15:59 08/28/17 08:08 10 MG Morphine Sulfate (MoRPHine SULFATE INJ) 2 mg Q1H PRN IV 08/25/17 16:00 09/08/17 15:59 08/28/17 00:14 2 MG Acetaminophen 1000 mg/Empty Bag 100 ml @ 400 mls/hr Q8H PRN IV 08/26/17 08:45 09/25/17 08:44 08/27/17 00:10 400 MLS/HR Magnesium Oxide (Mag-Ox Tab) 400 mg QAM PO 08/27/17 09:00 09/26/17 08:59 08/28/17 08:12 400 MG Amiodarone HCl (Cordarone Tab) 200 mg BID PO 08/27/17 21:00 09/26/17 20:59 08/28/17 08:09 200 MG Lab Results: 08/28/17 08:08 08/28/17 08:08 Test 08/28/17 08:08 Red Blood Count 3.31 M/uL (4.7-6.1) Mean Corpuscular Volume 78.5 fL (80-100) Mean Corpuscular Hemoglobin 23.9 pg (25-34) Mean Corpuscular Hemoglobin Concent 30.4 g/dl (32-36) RDW Standard Deviation 56.8 fL (36.4-46.3) RDW Coefficient of Variation 19.7 % (11.5-14.5) Mean Platelet Volume 9.2 fL (7.4-10.4) Anion Gap 4.0 mmol/L (3-11) Est Creatinine Clear Calc Drug Dose 94.0 ml/min Estimated GFR () 108.5 Estimated GFR (Non- 93.6 BUN/Creatinine Ratio 15.6 (10-20) Calcium Level 8.0 mg/dl (8.5-10.1)
[2017-08-28] MEDS: BIMATOPROST 0.01% OP SOLN 2.5 ML BTL OP SCH (20:18)
[2017-08-28 20:23] LABS: HEMATOCRIT 26.1 % (42-52); HEMOGLOBIN 7.9 g/dL (14.0-18.0); MEAN CELL VOLUME 78.4 fL (80-100); MEAN CORPUSCULAR HEMOGLOBIN 23.7 pg (25-34); MEAN PLATELET VOLUME 10.2 fL (7.4-10.4); PLATELET COUNT 263 K/uL (130-400); RED CELL DISTRIBUTION WIDTH CV 20.1 % (11.5-14.5); WHITE BLOOD COUNT 8.67 K/uL (4.8-10.8)
[2017-08-28 20:33] LABS: INR 1.4 (0.9-1.1); PTT PATIENT 28.5 SECONDS (21.0-31.0)
[2017-08-28] MEDS: HEPARIN 25,000 UNIT/500ML D5W 500 ML IV PRN (20:49)
[2017-08-28 20:50] LABS: MEAN CORPUSCULAR HGB CONC 30.3 g/dl (32-36)
--- NOTE | 2017-08-28 21:45 | Progress Note ---
Subjective Date of Service: Aug 28, 2017. Subjective Patient has no complaints today. Patient reports breathing well. Problem List Medical Problems: (1) Alkaline phosphatase elevation Status: Acute (2) Anemia Status: Acute (3) Chest pain Status: Acute (4) Gastritis Status: Acute (5) Pleural effusion, bilateral Status: Acute Review of Systems Constitutional: No fever, No chills ENT: No hearing loss Respiratory: + cough Cardiac: No chest pain Abdomen: No pain, No nausea Neurologic: No memory loss Psychiatric: No depression symptoms Heme: No abnormal bleeding/bruising Skin: No rash, No itch All Other Systems: Reviewed and Negative Medications Current Inpatient Medications Medications (Trade) Dose Ordered Sig/Kaitlynn Route Start Time Stop Time Status Last Admin Dose Admin Magnesium Hydroxide (Milk Of Magnesia Susp) 30 ml Q6H PRN PO 08/18/17 17:30 09/17/17 17:29 08/27/17 13:02 30 ML Polyethylene (Miralax Powder Packet) 17 gm DAILY PRN PO 08/18/17 17:30 09/17/17 17:29 Ondansetron HCl (Zofran Inj) 4 mg Q6H PRN IV 08/18/17 17:30 09/17/17 17:29 08/22/17 11:11 4 MG Guaifenesin (Mucinex Contr Rel Tab) 600 mg Q12 PO 08/18/17 21:00 09/17/17 20:59 08/28/17 20:20 600 MG Hydroxyzine HCl (Vistaril Tab) 25 mg HS PRN PO 08/20/17 00:30 09/19/17 00:29 08/20/17 00:40 25 MG Bisacodyl (Dulcolax Tab) 10 mg DAILY PO 08/21/17 10:00 09/20/17 09:59 08/28/17 08:15 10 MG Polyethylene (Miralax Powder Packet) 17 gm DAILY PO 08/21/17 10:00 09/20/17 09:59 08/28/17 08:12 17 GM Bisacodyl (Dulcolax Supp) 10 mg DAILY PRN [place] 08/21/17 10:00 09/20/17 09:59 Atorvastatin Calcium (Lipitor Tab) 80 mg DAILY PO 08/23/17 09:00 09/22/17 08:59 08/28/17 08:12 80 MG Furosemide (Lasix Tab) 40 mg QAM PO 08/23/17 09:00 09/22/17 08:59 Future hold 08/28/17 08:11 40 MG Multivitamins (Multivitamin Tab) 1 tab QAM PO 08/23/17 09:00 09/22/17 08:59 08/28/17 08:13 1 TAB Pantoprazole Sodium (Protonix Tab) 40 mg QAM PO 08/23/17 09:00 09/22/17 08:59 08/28/17 08:13 40 MG Senna (Senokot Tab) 8.6 mg QAM PO 08/23/17 09:00 09/22/17 08:59 08/28/17 08:13 8.6 MG Sertraline HCl (Zoloft Tab) 75 mg QAM PO 08/23/17 09:00 09/22/17 08:59 08/28/17 08:14 75 MG Benazepril HCl (Lotensin Tab) 20 mg QAM PO 08/23/17 09:00 09/22/17 08:59 Future Hold Bimatoprost (Lumigan 0.01%) 1 drops HS OP 08/22/17 21:00 09/21/17 20:59 08/28/17 20:18 1 DROPS Ferrous Sulfate (Feosol Tab) 325 mg BID PO 08/22/17 21:00 09/21/17 20:59 08/28/17 20:19 325 MG Metoprolol Succinate (Toprol Xl Tab) 25 mg BID PO 08/23/17 21:00 09/22/17 20:59 Future Hold 08/25/17 08:13 25 MG Oxycodone HCl (Roxicodone Immediate Rel Tab) 5 mg Q6H PRN PO 08/25/17 16:00 09/08/17 15:59 08/28/17 16:31 5 MG Metoclopramide HCl (Reglan Inj) 10 mg Q8@0000,0800,1600 IV. 08/25/17 16:00 09/24/17 15:59 08/28/17 16:23 10 MG Morphine Sulfate (MoRPHine SULFATE INJ) 2 mg Q1H PRN IV 08/25/17 16:00 09/08/17 15:59 08/28/17 00:14 2 MG Acetaminophen 1000 mg/Empty Bag 100 ml @ 400 mls/hr Q8H PRN IV 08/26/17 08:45 09/25/17 08:44 08/27/17 00:10 400 MLS/HR Magnesium Oxide (Mag-Ox Tab) 400 mg QAM PO 08/27/17 09:00 09/26/17 08:59 08/28/17 08:12 400 MG Amiodarone HCl (Cordarone Tab) 200 mg BID PO 08/27/17 21:00 09/26/17 20:59 08/28/17 20:19 200 MG Heparin Sodium/ Dextrose 500 ml @ 26 mls/hr [id number] PRN IV 08/28/17 18:45 09/27/17 18:44 08/28/17 20:49 26 MLS/HR Objective Vital Signs Date Time Temp Pulse Resp B/P (MAP) Pulse Ox O2 Delivery O2 Flow Rate FiO2 08/28/17 16:00 Nasal Cannula 2.0 08/28/17 16:00 37.0 88 20 96/46 (63) 94 Room Air 08/28/17 12:00 Nasal Cannula 2.0 08/28/17 11:29 36.4 65 20 100/44 (62) 99 Nasal Cannula 2.0 08/28/17 08:00 Nasal Cannula 2.0 08/28/17 07:14 36.4 73 20 112/41 (64) 96 Nasal Cannula 2.0 08/28/17 04:00 99 Nasal Cannula 2.0 08/28/17 03:30 36.7 75 23 115/44 (67) 96 Nasal Cannula 2.0 08/27/17 23:59 91 Nasal Cannula 2.0 08/27/17 23:00 77 24 119/50 (73) 96 Nasal Cannula 2.0 Physical Exam Comments: General Appearance: WDWN in NAD; thin HEENT: Head is normocephalic/atraumatic; Mucous membranes moist; Pharynx negative for exudate/lesions; Neck: Supple; Trachea midline; Neg JVD; Neg lymphadenopathy Chest: Chest tube noted on right lower chest wall Heart: RRR with systolic murmur Lungs: CTA in all lung hartmann bilaterally but diminished at bases - takes short inspirations; Respirations unlabored; Neg accessory muscle use; R lower lung field PleurX Abdomen: Soft, non-tender, non-distended; Positive BS x 4 quadrants Extremities: Neg cyanosis or edema Neurological: Speech is clearer today Neg focal neurologic deficits Psychiatric: Appropriate mood/affect Skin: ; Normal Color; Warm/Dry Laboratory Results Last 24 Hours Test 08/28/17 08:08 08/28/17 20:12 White Blood Count 6.60 K/uL 8.67 K/uL Red Blood Count 3.31 M/uL 3.33 M/uL Hemoglobin 7.9 g/dL 7.9 g/dL Hematocrit 26.0 % 26.1 % Mean Corpuscular Volume 78.5 fL 78.4 fL Mean Corpuscular Hemoglobin 23.9 pg 23.7 pg Mean Corpuscular Hemoglobin Concent 30.4 g/dl 30.3 g/dl RDW Standard Deviation 56.8 fL 57.0 fL RDW Coefficient of Variation 19.7 % 20.1 % Platelet Count 222 K/uL 263 K/uL Mean Platelet Volume 9.2 fL 10.2 fL Sodium Level 131 mmol/L Potassium Level 4.6 mmol/L Chloride Level 96 mmol/L Carbon Dioxide Level 31 mmol/L Anion Gap 4.0 mmol/L Blood Urea Nitrogen 11 mg/dl Creatinine 0.70 mg/dl Est Creatinine Clear Calc Drug Dose 94.0 ml/min Estimated GFR () 108.5 Estimated GFR (Non- 93.6 BUN/Creatinine Ratio 15.6 Random Glucose 143 mg/dl Calcium Level 8.0 mg/dl Prothrombin Time 14.2 SECONDS Prothromb Time International Ratio 1.4 Activated Partial Thromboplast Time 28.5 SECONDS Partial Thromboplastin Ratio 1.1 Assessment and Plan This is a 71 yo M with PMHx of dilated cardiomyopathy with severe left ventricular dysfunction with EF equal to 45% in 08/2015, CAD s/p 3 DEZ to diagonal and distal RCA, and PDA in 03/2016, mild aortic stenosis hypertension, hyperlipidemia, elevated alkaline phosphatase, GERD, diverticulosis, depression , weight loss of 40 pounds in the past year, dysphagia, iron deficiency anemia, who presents after right thoracentesis performed by Dr. Lanacster on 08/18/17. Thoracic fluid was found to be purulent so he has been directly admitted to the hospital for IV antibiotics for empyema. Hypotensive after thoracoscopic extensive decortication of the right lung. Resolved. Downgraded from ICU R Complex Empyema and Complicated Pleural Effusion with R Pleur-X: -improved after procedure above. - Completed 7th day of zosyn today - Patient is breathing better now. SVT and Paroxysmal Atrial Fibrillation/Flutter: NSR Currently - on 08/22 patient went into SVT in pre-op. Adenosine 6 mg and 12 mg with converted to flutter and resulted hypotension from rhythm. Underwent unsuccessful cardioversion; Spontaneously converted to NSR on 08/23 and no further arrhythmias - Continue Amiodarone gtt until after surgical procedure and initiate Amiodarone 400 mg TID x 5 days then 400 mg daily - Initiated heparin today. -- Discussed with patient who is in agreement for anticoagulation. - Digoxin D/C'd and initiate Toprol XL 25 mg BID - Cardiology following - recommendations appreciated - plan as above -May benefit from coumadin as this is rapidly reversible given his anemia. will start coumadin today. Anemia Likely dilutional. Gave IV lasix. will monitor Chronic Systolic CHF/Dilated Cardiomyopathy with Severe LV Dysfunction - EF 45% : CAD S/P PCI - HTN/HLD: - Toprol XL 25 mg BID, Atorvastatin 80 mg daily - ASA on hold -lasix IV given today Dysphagia/Unintentional Weight Loss/GERD/RUQ Pain: - Ease of eating improved with dental soft diet - discussed with daughter as well and states they are making arrangements for new dentures -- Given weight loss likely needs to fitting - Dental soft diet - GI followed and S/O - recommend to continue Protonix - [employer] following - recommending moist regular diet Constipation: - Continue bowel regimen with Miralax, Dulcolax, Senna; PRN Suppositories DVT Prophylaxis: heparin gtt Code Status: FULL RESUSCITATION Continued [id number] stay due to: multiple IV medications needed Discharge planning: home
--- NOTE | 2017-08-28 21:51 | Progress Note ---
Post ICU Progress Note Date & Time Aug 28, 2017 at 21:23 Vital Signs Vital Signs Past 12 Hours Date Time Temp Pulse Resp B/P (MAP) Pulse Ox O2 Delivery O2 Flow Rate FiO2 08/28/17 16:00 Nasal Cannula 2.0 08/28/17 16:00 37.0 88 20 96/46 (63) 94 Room Air 08/28/17 12:00 Nasal Cannula 2.0 08/28/17 11:29 36.4 65 20 100/44 (62) 99 Nasal Cannula 2.0 Notes Mental Status: alert / awake, participated in evaluation Nausea / Vomiting: adequately controlled Pain: adequately controlled Airway Patency, RR, SpO2: stable & adequate (remains on 2L) BP & HR: stable & adequate Vasu Rizo is a very pleasant 71yo male that went to the OR with Dr. Lancaster for decortication of all right lung hartmann secondary to a fibrous hemothorax. Pt tolerated surgery well. However, continues with paroxysmal A. fib. He had a prior episode of A. Fib RVR prior to surg with return to NSR. Pt remains with 2 right chest tubes in place to suction. Per Dr. Hsu's documentation; he will review CXR in AM and consider removal at that time. Pts blood counts are low but have stablized. Cardiology started pt on heparin drip for anticoagulation due to the A. fib. Pt has ambulated around unit today. He continues with 2L oxygen demand. Blood pressures are stable. Upon examining pt this evening he continues to improve. He stated he currently had no pain. His pleural rub s/p pulmonary surgery is much improved. There is mild swelling of the right posterior hand without pain. Pts nurse stated he had previously had an infiltrated IV site there. Otherwise, pt has no complaints and remains stable. Consider outpatient follow up in 1 to 2 weeks with: Dr. Mata (Cardiology), Dr. Lancaster (Surgeon), Dr. Caldera (GI) and Dr. Marshall Repeat imaging needed: CXR in AM Follow up cultures: NA Reviewed progress notes, labs, and inpatient medication list Continue current management Additional recommendations: None Pt remains stable at this time. Thank you for including us in the care of this pt, please feel free to reconsult as needed. Consults & Procedures Consultants: Cardiology: Dr. Mata GI: Dr. Cummins Thoracic Surg: Dr. Lancaster Procedures: EGD: 08/20/17 Decortication: 08/25/17 Thoracentesis: 08/18/17
[2017-08-28] MEDS ORDERED: WARFARIN SOD 5 MG TAB PO ONE (22:15)
[2017-08-29] VITALS (7 sets, daily range): BP systolic 112–127; BP diastolic 44–74; PULSE 73–99; TEMP 36.6–36.7; O2SAT 7–99
[2017-08-29 03:49] LABS: PTT PATIENT 51.3 SECONDS (21.0-31.0)
--- NOTE | 2017-08-29 07:05 | DIAGNOSTIC IMAGING REPORT ---
CHEST ONE VIEW PORTABLE CLINICAL HISTORY: s/p decortication COMPARISON STUDY: 08/27/2017 FINDINGS: The cardiac and mediastinal contours remain stable. The 2 right-sided chest tubes remain unchanged in position. There is a persistent trace right-sided pneumothorax. There is improving pulmonary vascular congestion.[There are left basilar airspace opacities, likely secondary to pulmonary vascular congestion although a superimposed inflammatory process could appear similar. IMPRESSION: 1. Persistent but improving pulmonary vascular congestion/fluid overload 2. Postsurgical changes of the right. Persistent trace sided pneumothorax. Electronically signed by: Randell Walker M.D. 08/29/2017 7:03 AM Dictated Date/Time: 08/29/2017 7:02 AM
[2017-08-29 07:06] LABS: INR 1.3 (0.9-1.1)
[2017-08-29] MEDS: MoRPHine SULFATE 2 MG/ML CARP IV PRN (08:09)
[2017-08-29] MEDS: METOCLOPRAMIDE HCL INJ 5 MG/ML 2 ML VIAL IV. SCH ×3 (08:09→23:43)
[2017-08-29] MEDS: FUROSEMIDE 40 MG TAB PO SCH (08:09)
[2017-08-29] MEDS: ATORVASTATIN 40 MG TAB PO SCH (08:09)
[2017-08-29] MEDS: SERTRALINE HCL 50 MG TAB PO SCH (08:10)
[2017-08-29] MEDS: SENNA 8.6 MG TAB PO SCH (08:10)
[2017-08-29] MEDS: MULTIVITAMIN TAB PO SCH (08:10)
[2017-08-29] MEDS: AMIODARONE 200 MG TAB PO SCH ×2 (08:10→19:30)
[2017-08-29] MEDS: MAGNESIUM OXIDE 400 MG TAB PO SCH (08:12)
[2017-08-29] MEDS: FERROUS SULFATE 325 MG TAB PO SCH ×2 (08:12→19:30)
[2017-08-29] MEDS: PANTOprazole SOD 40 MG TAB PO SCH (08:12)
[2017-08-29] MEDS: GUAIFENESIN 600 MG TABCR PO SCH ×2 (08:12→19:30)
[2017-08-29] MEDS: POLYETHYLENE (MIRALAX) 17 GM PACK PO SCH (08:12)
[2017-08-29] MEDS: BISACODYL 5 MG TABEC PO SCH (08:15)
--- NOTE | 2017-08-29 10:55 | Cardiology Follow-Up ---
Subjective Subjective Date of Service: Aug 29, 2017. Pt evaluation today including: conversation w/ patient, physical exam, chart review, lab review, review of studies, review of inpatient medication list Additional Details: Feeling well. No complaints this morning. One chest tube removed I/O yesterday -2700 Tele reviewed -- self terminating episode of atrial flutter with RVR yesterday ~ 1700. since sinus rhythm. Problem List Medical Problems: (1) Alkaline phosphatase elevation Status: Acute (2) Anemia Status: Acute (3) Chest pain Status: Acute (4) Gastritis Status: Acute (5) Pleural effusion, bilateral Status: Acute Review of Systems Constitutional: No fever, No chills Eyes: No worsening of vision ENT: No hearing loss Respiratory: + cough Cardiac: No chest pain Abdomen: No pain, No nausea Musculoskeletal: No joint pain Male : No dysuria Neurologic: No memory loss Psychiatric: No depression symptoms Heme: No abnormal bleeding/bruising Endo: No fatigue Skin: No rash, No itch Objective Vital Signs Last Vital Signs Documentation Date Time Temp Pulse Resp B/P (MAP) Pulse Ox O2 Delivery O2 Flow Rate FiO2 08/29/17 04:00 94 Nasal Cannula 2.0 08/29/17 01:54 36.6 99 22 121/60 (80) Physical Exam: General Appearance: no apparent distress, + thin ENT: hearing grossly normal Neck: supple Respiratory/Chest: no respiratory distress, no accessory muscle use, + decreased breath sounds (At bases bilaterally), + pertinent finding (one chest tube in place, draining serosanguineous fluid) Cardiovascular: regular rate, rhythm, + systolic murmur (3/6 systolic ejection murmur at left upper sternal border) Abdomen: normal bowel sounds, non tender Extremities: no pedal edema, no calf tenderness Neurologic/Psychiatric: alert Skin: normal color, warm/dry Assessment and Plan 1. Complicated Pleural effusion/Hemothorax now POD4 s/p thoracoscopy with decortication 2. Paroxymal Atrial flutter with RVR 3. Intermittent junctional bradycardia 4. Chronic systolic heart failure/ICM EF 35-40% . 5. Multivessel CAD 6. Moderate to severe 7. Dysphagia/Unintentional weight loss 8. Anemia 9. Hyponatremia Diuresed well. Today well perfused, with improved congestion on exam/CXR. Blood pressures stable Short, self-terminating episodes of paroxysmal AF --continue daily lasix 40mg daily; f/up renal function --continue current amiodarone 200 mg BID --> transition to daily as an outpatient --started on heparin yesterday -- repeat blood counts pending. If Hb stable during admission would recommend NOAC on discharge. --resume low dose metoprolol 12.5 bid as BP allows --continue current statin Will continue to follow. Continued [facility] stay due to: multiple IV medications needed Discharge planning: home Medications: Current Inpatient Medications Medications (Trade) Dose Ordered Sig/Kaitlynn Route Start Time Stop Time Status Last Admin Dose Admin Magnesium Hydroxide (Milk Of Magnesia Susp) 30 ml Q6H PRN PO 08/18/17 17:30 09/17/17 17:29 08/27/17 13:02 30 ML Polyethylene (Miralax Powder Packet) 17 gm DAILY PRN PO 08/18/17 17:30 09/17/17 17:29 Ondansetron HCl (Zofran Inj) 4 mg Q6H PRN IV 08/18/17 17:30 09/17/17 17:29 08/22/17 11:11 4 MG Guaifenesin (Mucinex Contr Rel Tab) 600 mg Q12 PO 08/18/17 21:00 09/17/17 20:59 08/29/17 08:12 600 MG Hydroxyzine HCl (Vistaril Tab) 25 mg HS PRN PO 08/20/17 00:30 09/19/17 00:29 08/20/17 00:40 25 MG Bisacodyl (Dulcolax Tab) 10 mg DAILY PO 08/21/17 10:00 09/20/17 09:59 08/29/17 08:15 10 MG Polyethylene (Miralax Powder Packet) 17 gm DAILY PO 08/21/17 10:00 09/20/17 09:59 08/29/17 08:12 17 GM Bisacodyl (Dulcolax Supp) 10 mg DAILY PRN PA 08/21/17 10:00 09/20/17 09:59 Atorvastatin Calcium (Lipitor Tab) 80 mg DAILY PO 08/23/17 09:00 09/22/17 08:59 08/29/17 08:09 80 MG Furosemide (Lasix Tab) 40 mg QAM PO 08/23/17 09:00 09/22/17 08:59 Future hold 08/29/17 08:09 40 MG Multivitamins (Multivitamin Tab) 1 tab QAM PO 08/23/17 09:00 09/22/17 08:59 08/29/17 08:10 1 TAB Pantoprazole Sodium (Protonix Tab) 40 mg QAM PO 08/23/17 09:00 09/22/17 08:59 08/29/17 08:12 40 MG Senna (Senokot Tab) 8.6 mg QAM PO 08/23/17 09:00 09/22/17 08:59 08/29/17 08:10 8.6 MG Sertraline HCl (Zoloft Tab) 75 mg QAM PO 08/23/17 09:00 09/22/17 08:59 08/29/17 08:10 75 MG Benazepril HCl (Lotensin Tab) 20 mg QAM PO 08/23/17 09:00 09/22/17 08:59 Future Hold Bimatoprost (Lumigan 0.01%) 1 drops HS OP 08/22/17 21:00 09/21/17 20:59 08/28/17 20:18 1 DROPS Ferrous Sulfate (Feosol Tab) 325 mg BID PO 08/22/17 21:00 09/21/17 20:59 08/29/17 08:12 325 MG Metoprolol Succinate (Toprol Xl Tab) 25 mg BID PO 08/23/17 21:00 09/22/17 20:59 Future Hold 08/25/17 08:13 25 MG Oxycodone HCl (Roxicodone Immediate Rel Tab) 5 mg Q6H PRN PO 08/25/17 16:00 09/08/17 15:59 08/28/17 23:03 5 MG Metoclopramide HCl (Reglan Inj) 10 mg Q8@0000,0800,1600 IV. 08/25/17 16:00 09/24/17 15:59 08/29/17 08:09 10 MG Morphine Sulfate (MoRPHine SULFATE INJ) 2 mg Q1H PRN IV 08/25/17 16:00 09/08/17 15:59 08/29/17 08:09 2 MG Acetaminophen 1000 mg/Empty Bag 100 ml @ 400 mls/hr Q8H PRN IV 08/26/17 08:45 09/25/17 08:44 08/27/17 00:10 400 MLS/HR Magnesium Oxide (Mag-Ox Tab) 400 mg QAM PO 08/27/17 09:00 09/26/17 08:59 08/29/17 08:12 400 MG Amiodarone HCl (Cordarone Tab) 200 mg BID PO 08/27/17 21:00 09/26/17 20:59 08/29/17 08:10 200 MG Heparin Sodium/ Dextrose 500 ml @ 26 mls/hr [id number] PRN IV 08/28/17 18:45 09/27/17 18:44 08/28/17 20:49 26 MLS/HR Lab Results: 08/28/17 20:12 Test 08/28/17 20:12 08/29/17 03:08 08/29/17 03:12 Red Blood Count 3.33 M/uL (4.7-6.1) Mean Corpuscular Volume 78.4 fL (80-100) Mean Corpuscular Hemoglobin 23.7 pg (25-34) Mean Corpuscular Hemoglobin Concent 30.3 g/dl (32-36) RDW Standard Deviation 57.0 fL (36.4-46.3) RDW Coefficient of Variation 20.1 % (11.5-14.5) Mean Platelet Volume 10.2 fL (7.4-10.4) Activated Partial Thromboplast Time 51.3 SECONDS (21.0-31.0) Partial Thromboplastin Ratio 2.0 Prothrombin Time 13.5 SECONDS (9.0-12.0) Prothromb Time International Ratio 1.3 (0.9-1.1)
--- NOTE | 2017-08-29 11:40 | DIAGNOSTIC IMAGING REPORT ---
SINGLE VIEW CHEST CLINICAL HISTORY: Status post chest tube removal. FINDINGS: An AP, portable, upright chest radiograph is compared to chest x-ray performed earlier the same day 08/29/2017 and correlated with chest CT dated 08/21/2017. The examination is degraded by portable technique and patient rotation. The heart is enlarged and there is atherosclerotic calcification of the thoracic aorta. The pulmonary vasculature is noncongested. Emphysema and chronic interstitial thickening are similar to previous. A right apical chest tube has been removed from earlier today. A pleural catheter at the right lung base is unchanged in position. A trace right basilar pneumothorax is suspected. There are small pleural effusions and bibasilar consolidation. The skeletal structures are osteopenic. The bony thorax is grossly intact. IMPRESSION: 1. Cardiomegaly and emphysema. 2. A right apical chest tube has been removed. A pleural drain is again seen at the right lung base. A trace right basilar pneumothorax is suspected. 3. Small pleural effusions and bibasilar consolidation are again noted. Electronically signed by: Herman Rivas M.D. 08/29/2017 11:39 AM Dictated Date/Time: 08/29/2017 11:37 AM
--- NOTE | 2017-08-29 12:41 | Clinical Documentation Query ---
CLINICAL DOCUMENTATION QUERY Progress note 08/28 states: "Chronic Systolic CHF/Dilated Cardiomyopathy with Severe LV Dysfunction - EF 45%: CAD S/P PCI - HTN/HLD: - Toprol XL 25 mg BID, Atorvastatin 80 mg daily - ASA on hold -lasix IV given today" In your clinical opinion is this patient being managed for: ( ) Acute on chronic systolic (congestive) heart failure treated with IV Lasix ( x ) Not Agree ( x ) Other explanation of clinical findings (Please Explain) Dilutional anemia in a patient with complex pleural effusion ( ) Unable to determine (Please Define) ( ) Need to Discuss The medical record reflects the following clinical findings, treatment, and risk factors. Clinical Indicators: +cough, diminished lung sounds to bases. 2L of UO after lasix was given per I/O's Treatment: IV Lasix, Risk Factors: Age, IVF fluid boluses, surgical stress, Chronic systolic CHF. Please clarify and document your clinical opinion in the progress notes and discharge summary. Terms such as "probable", "suspected", "likely", "questionable", "possible", or "still to be ruled out" are acceptable. IF IN AGREEMENT, YOU MUST DOCUMENT ABOVE DIAGNOSTIC STATEMENT IN DAILY PROGRESS NOTES AND DISCHARGE SUMMARY. This document is not part of the patient's record. Thank You, Sergey Banks, DAMIÁN [phone]
--- NOTE | 2017-08-29 14:02 | SURGERY PROGRESS NOTE ---
DATE: 08/29/2017 Mr. Rizo was seen today. He looks great. Output from his first chest tube is decreased to almost nothing, so I removed this at the bedside. He still has a small pneumothorax basally. He is putting out less fluid from his anterior chest tube and I decided to leave that in place. Otherwise, I think he looks very good. His incisions are clean. He has been ambulating in the hallway. I would recommend removing his Arredondo and discontinuing his IV fluid and getting him out of the intensive care unit. He has been stable from our perspective for the last few days. LEROY
[2017-08-29] MEDS: BIMATOPROST 0.01% OP SOLN 2.5 ML BTL OP SCH (19:29)
--- NOTE | 2017-08-29 22:57 | Progress Note ---
Subjective Date of Service: Aug 29, 2017. Subjective Patient denies any complaints. Patient reports being able to take deep breaths. Patient denies palpitations, nausea, vomiting. Problem List Medical Problems: (1) Alkaline phosphatase elevation Status: Acute (2) Anemia Status: Acute (3) Chest pain Status: Acute (4) Gastritis Status: Acute (5) Pleural effusion, bilateral Status: Acute Review of Systems Constitutional: No fever, No chills Respiratory: No cough, No sputum Cardiac: No chest pain, No edema Neurologic: No memory loss Psychiatric: No depression symptoms Heme: No abnormal bleeding/bruising Skin: No rash All Other Systems: Reviewed and Negative Medications Current Inpatient Medications Medications (Trade) Dose Ordered Sig/Kaitlynn Route Start Time Stop Time Status Last Admin Dose Admin Magnesium Hydroxide (Milk Of Magnesia Susp) 30 ml Q6H PRN PO 08/18/17 17:30 09/17/17 17:29 08/27/17 13:02 30 ML Polyethylene (Miralax Powder Packet) 17 gm DAILY PRN PO 08/18/17 17:30 09/17/17 17:29 Ondansetron HCl (Zofran Inj) 4 mg Q6H PRN IV 08/18/17 17:30 09/17/17 17:29 08/22/17 11:11 4 MG Guaifenesin (Mucinex Contr Rel Tab) 600 mg Q12 PO 08/18/17 21:00 09/17/17 20:59 08/30/17 07:35 600 MG Hydroxyzine HCl (Vistaril Tab) 25 mg HS PRN PO 08/20/17 00:30 09/19/17 00:29 08/20/17 00:40 25 MG Bisacodyl (Dulcolax Tab) 10 mg DAILY PO 08/21/17 10:00 09/20/17 09:59 08/30/17 07:44 10 MG Polyethylene (Miralax Powder Packet) 17 gm DAILY PO 08/21/17 10:00 09/20/17 09:59 08/30/17 07:36 17 GM Bisacodyl (Dulcolax Supp) 10 mg DAILY PRN TN 08/21/17 10:00 09/20/17 09:59 Atorvastatin Calcium (Lipitor Tab) 80 mg DAILY PO 08/23/17 09:00 09/22/17 08:59 08/30/17 07:36 80 MG Furosemide (Lasix Tab) 40 mg QAM PO 08/23/17 09:00 09/22/17 08:59 Future hold 08/30/17 07:36 40 MG Multivitamins (Multivitamin Tab) 1 tab QAM PO 08/23/17 09:00 09/22/17 08:59 08/30/17 07:35 1 TAB Pantoprazole Sodium (Protonix Tab) 40 mg QAM PO 08/23/17 09:00 09/22/17 08:59 08/30/17 07:36 40 MG Senna (Senokot Tab) 8.6 mg QAM PO 08/23/17 09:00 09/22/17 08:59 08/30/17 07:35 8.6 MG Sertraline HCl (Zoloft Tab) 75 mg QAM PO 08/23/17 09:00 09/22/17 08:59 08/30/17 07:35 75 MG Bimatoprost (Lumigan 0.01%) 1 drops HS OP 08/22/17 21:00 09/21/17 20:59 08/29/17 19:29 1 DROPS Ferrous Sulfate (Feosol Tab) 325 mg BID PO 08/22/17 21:00 09/21/17 20:59 08/30/17 07:37 325 MG Oxycodone HCl (Roxicodone Immediate Rel Tab) 5 mg Q6H PRN PO 08/25/17 16:00 09/08/17 15:59 08/28/17 23:03 5 MG Metoclopramide HCl (Reglan Inj) 10 mg Q8@0000,0800,1600 IV. 08/25/17 16:00 09/24/17 15:59 08/30/17 15:59 10 MG Morphine Sulfate (MoRPHine SULFATE INJ) 2 mg Q1H PRN IV 08/25/17 16:00 09/08/17 15:59 08/29/17 08:09 2 MG Acetaminophen 1000 mg/Empty Bag 100 ml @ 400 mls/hr Q8H PRN IV 08/26/17 08:45 09/25/17 08:44 08/27/17 00:10 400 MLS/HR Magnesium Oxide (Mag-Ox Tab) 400 mg QAM PO 08/27/17 09:00 09/26/17 08:59 08/30/17 07:36 400 MG Amiodarone HCl (Cordarone Tab) 200 mg BID PO 08/27/17 21:00 09/26/17 20:59 08/30/17 07:35 200 MG Heparin Sodium/ Dextrose 500 ml @ 29 mls/hr [id number] PRN IV 08/28/17 18:45 09/27/17 18:44 08/30/17 10:35 29 MLS/HR Objective Vital Signs Date Time Temp Pulse Resp B/P (MAP) Pulse Ox O2 Delivery O2 Flow Rate FiO2 08/29/17 20:10 Room Air 08/29/17 19:16 36.7 92 18 112/65 (81) 92 Room Air 08/29/17 16:00 Room Air 08/29/17 12:00 36.6 75 17 120/44 (69) 7 Room Air 08/29/17 12:00 94 Room Air 08/29/17 08:00 36.6 73 18 127/65 (85) 94 Room Air 08/29/17 08:00 94 Room Air 08/29/17 04:00 94 Nasal Cannula 2.0 08/29/17 01:54 36.6 99 22 121/60 (80) 99 Nasal Cannula 2.0 08/28/17 23:59 94 Nasal Cannula 2.0 08/28/17 23:05 36.6 87 21 92/40 (57) 99 Nasal Cannula 2.0 Physical Exam Comments: General Appearance: WDWN in NAD; thin HEENT: Head is normocephalic/atraumatic; Mucous membranes moist; Pharynx negative for exudate/lesions; Neck: Supple; Trachea midline; Neg JVD; Neg lymphadenopathy Chest: Chest tube noted on right lower chest wall Heart: RRR with systolic murmur Lungs: CTA in all lung hartmann bilaterally but diminished at bases - takes short inspirations; Respirations unlabored; Neg accessory muscle use; R lower lung field PleurX Abdomen: Soft, non-tender, non-distended; Positive BS x 4 quadrants Extremities: Neg cyanosis or edema Neurological: Speech is clearer today Neg focal neurologic deficits Psychiatric: Appropriate mood/affect Skin: ; Normal Color; Warm/Dry Laboratory Results Last 24 Hours Test 08/29/17 03:08 08/29/17 03:12 Activated Partial Thromboplast Time 51.3 SECONDS Partial Thromboplastin Ratio 2.0 Prothrombin Time 13.5 SECONDS Prothromb Time International Ratio 1.3 Assessment and Plan This is a 71 yo M with PMHx of dilated cardiomyopathy with severe left ventricular dysfunction with EF equal to 45% in 08/2015, CAD s/p 3 DEZ to diagonal and distal RCA, and PDA in 03/2016, mild aortic stenosis hypertension, hyperlipidemia, elevated alkaline phosphatase, GERD, diverticulosis, depression , weight loss of 40 pounds in the past year, dysphagia, iron deficiency anemia, who presents after right thoracentesis performed by Dr. Lancaster on 08/18/17. Thoracic fluid was found to be purulent so he has been directly admitted to the hospital for IV antibiotics for empyema. Hypotensive after thoracoscopic extensive decortication of the right lung. Resolved. Downgraded from ICU R Complex Empyema and Complicated Pleural Effusion with R Pleur-X: -improved after procedure above. - Completed 7th day of zosyn today - Patient is breathing better now. SVT and Paroxysmal Atrial Fibrillation/Flutter: NSR Currently - on 08/22 patient went into SVT in pre-op. Adenosine 6 mg and 12 mg with converted to flutter and resulted hypotension from rhythm. Underwent unsuccessful cardioversion; Spontaneously converted to NSR on 08/23 and no further arrhythmias - Amiodarone 200mg po bid - Continue heparin drip -- Discussed with patient who is in agreement for anticoagulation. - Digoxin D/C'd -Toprol was held due to bradycardia - Cardiology following - recommendations appreciated - plan as above -will stop coumadin as patient is a candidate for NOAC. will continue heparin for now. Anemia Likely dilutional. Has remained stable Chronic Systolic CHF/Dilated Cardiomyopathy with Severe LV Dysfunction - EF 45% : CAD S/P PCI - HTN/HLD: - Toprol XL 25 mg BID, Atorvastatin 80 mg daily - ASA on hold -lasix IV given today Dysphagia/Unintentional Weight Loss/GERD/RUQ Pain: - Ease of eating improved with dental soft diet - discussed with daughter as well and states they are making arrangements for new dentures -- Given weight loss likely needs to fitting - Dental soft diet - GI followed and S/O - recommend to continue Protonix - IT OPERATIONS SPECIALIST following - recommending moist regular diet Constipation: - Continue bowel regimen with Miralax, Dulcolax, Senna; PRN Suppositories DVT Prophylaxis: heparin gtt Code Status: FULL RESUSCITATION Continued [facility] stay due to: multiple IV medications needed, other (still requires chest tube) Discharge planning: home
[2017-08-30] VITALS (8 sets, daily range): BP systolic 118–150; BP diastolic 55–80; PULSE 78–111; TEMP 36.5–36.8; O2SAT 92–97
--- NOTE | 2017-08-30 07:16 | SURGERY PROGRESS NOTE ---
DATE: 08/30/2017 SUBJECTIVE: Mr. Rizo was seen today on 08/30/2017. Put out about 300 mL through a chest tube, although it is difficult for me to tell exactly how much he has put out. We are going to change his collection chamber today. He is very comfortable. His heart rates in the 90s. He is on 2 liters of 97% saturations. We will check an x-ray on him in the morning. He is now postoperative day #5 status post an extensive decortication for a chronic hemothorax. His chest tube is not quite ready to come out. LEROY
[2017-08-30] MEDS: GUAIFENESIN 600 MG TABCR PO SCH ×2 (07:35→21:28)
[2017-08-30] MEDS: AMIODARONE 200 MG TAB PO SCH ×2 (07:35→21:28)
[2017-08-30] MEDS: MULTIVITAMIN TAB PO SCH (07:35)
[2017-08-30] MEDS: SERTRALINE HCL 50 MG TAB PO SCH (07:35)
[2017-08-30] MEDS: SENNA 8.6 MG TAB PO SCH (07:35)
[2017-08-30] MEDS: POLYETHYLENE (MIRALAX) 17 GM PACK PO SCH (07:36)
[2017-08-30] MEDS: FUROSEMIDE 40 MG TAB PO SCH (07:36)
[2017-08-30] MEDS: METOCLOPRAMIDE HCL INJ 5 MG/ML 2 ML VIAL IV. SCH ×3 (07:36→23:54)
[2017-08-30] MEDS: PANTOprazole SOD 40 MG TAB PO SCH (07:36)
[2017-08-30] MEDS: MAGNESIUM OXIDE 400 MG TAB PO SCH (07:36)
[2017-08-30] MEDS: ATORVASTATIN 40 MG TAB PO SCH (07:36)
[2017-08-30] MEDS: FERROUS SULFATE 325 MG TAB PO SCH ×2 (07:37→21:28)
[2017-08-30] MEDS: BISACODYL 5 MG TABEC PO SCH (07:44)
[2017-08-30 07:48] LABS: INR 1.9 (0.9-1.1)
[2017-08-30 07:50] LABS: PTT PATIENT 45.7 SECONDS (21.0-31.0)
[2017-08-30 08:06] LABS: BASO % 0.2 %; BASO ABS # 0.01 K/uL (0-0.2); EOS % 2.8 %; EOS ABS # 0.18 K/uL (0-0.5); HEMATOCRIT 25.4 % (42-52); HEMOGLOBIN 7.8 g/dL (14.0-18.0); IG# 0.01 K/uL (0.00-0.02); LYMPH ABS # 0.65 K/uL (1.2-3.4); MEAN CELL VOLUME 77.7 fL (80-100); MEAN CORPUSCULAR HEMOGLOBIN 23.9 pg (25-34); MEAN CORPUSCULAR HGB CONC 30.7 g/dl (32-36); MEAN PLATELET VOLUME 9.9 fL (7.4-10.4); MONO % 9.8 %; MONO ABS # 0.64 K/uL (0.11-0.59); NEUT ABS # 5.03 K/uL (1.4-6.5); PLATELET COUNT 314 K/uL (130-400); RED CELL DISTRIBUTION WIDTH CV 20.1 % (11.5-14.5); RED CELL DISTRIBUTION WIDTH SD 56.1 fL (36.4-46.3); WHITE BLOOD COUNT 6.52 K/uL (4.8-10.8)
[2017-08-30] MEDS ORDERED: HEPARIN IV BOLUS 3,000 UNIT in SYRINGE 0 ML IV ONE (08:30)
[2017-08-30] MEDS: HEPARIN 25,000 UNIT/500ML D5W 500 ML IV PRN (10:35)
--- NOTE | 2017-08-30 12:44 | DIAGNOSTIC IMAGING REPORT ---
CHEST ONE VIEW PORTABLE CLINICAL HISTORY: chest tube/air leaking COMPARISON STUDY: Chest radiograph August 29, 2017 11:21 AM. FINDINGS: Right basilar chest tube is in place. A suspected small right basilar pneumothorax is unchanged. A small left pleural effusion with left basilar opacity is unchanged. Interstitial thickening is unchanged. Cardiomediastinal silhouette is stable. IMPRESSION: 1. No change in appearance of the chest. Right basilar chest tube in place with a stable small suspected right basilar pneumothorax. 2. Small left pleural effusion. Bibasilar opacities. Electronically signed by: Lonnie Almanza M.D. 08/30/2017 12:43 PM Dictated Date/Time: 08/30/2017 12:40 PM
[2017-08-30] MEDS ORDERED: METOPROLOL SUCC 25MG EXT REL TAB PO STA (15:44)
[2017-08-30 15:46] LABS: PTT PATIENT 65.7 SECONDS (21.0-31.0)
[2017-08-30] MEDS: BIMATOPROST 0.01% OP SOLN 2.5 ML BTL OP SCH (21:28)
--- NOTE | 2017-08-30 21:40 | Progress Note ---
Subjective Date of Service: Aug 30, 2017. Subjective patient reports having no complaints today. Nurse stated that he was tachycardic today in the 120s. Patient denies palpitations, or SOB. Problem List Medical Problems: (1) Alkaline phosphatase elevation Status: Acute (2) Anemia Status: Acute (3) Chest pain Status: Acute (4) Gastritis Status: Acute (5) Pleural effusion, bilateral Status: Acute Review of Systems All Other Systems: Reviewed and Negative Medications Current Inpatient Medications Medications (Trade) Dose Ordered Sig/Kaitlynn Route Start Time Stop Time Status Last Admin Dose Admin Magnesium Hydroxide (Milk Of Magnesia Susp) 30 ml Q6H PRN PO 08/18/17 17:30 09/17/17 17:29 08/27/17 13:02 30 ML Polyethylene (Miralax Powder Packet) 17 gm DAILY PRN PO 08/18/17 17:30 09/17/17 17:29 Ondansetron HCl (Zofran Inj) 4 mg Q6H PRN IV 08/18/17 17:30 09/17/17 17:29 08/22/17 11:11 4 MG Guaifenesin (Mucinex Contr Rel Tab) 600 mg Q12 PO 08/18/17 21:00 09/17/17 20:59 08/30/17 21:28 600 MG Hydroxyzine HCl (Vistaril Tab) 25 mg HS PRN PO 08/20/17 00:30 09/19/17 00:29 08/20/17 00:40 25 MG Bisacodyl (Dulcolax Tab) 10 mg DAILY PO 08/21/17 10:00 09/20/17 09:59 08/30/17 07:44 10 MG Polyethylene (Miralax Powder Packet) 17 gm DAILY PO 08/21/17 10:00 09/20/17 09:59 08/30/17 07:36 17 GM Bisacodyl (Dulcolax Supp) 10 mg DAILY PRN VT 08/21/17 10:00 09/20/17 09:59 Atorvastatin Calcium (Lipitor Tab) 80 mg DAILY PO 08/23/17 09:00 09/22/17 08:59 08/30/17 07:36 80 MG Furosemide (Lasix Tab) 40 mg QAM PO 08/23/17 09:00 09/22/17 08:59 Future hold 08/30/17 07:36 40 MG Multivitamins (Multivitamin Tab) 1 tab QAM PO 08/23/17 09:00 09/22/17 08:59 08/30/17 07:35 1 TAB Pantoprazole Sodium (Protonix Tab) 40 mg QAM PO 08/23/17 09:00 09/22/17 08:59 08/30/17 07:36 40 MG Senna (Senokot Tab) 8.6 mg QAM PO 08/23/17 09:00 09/22/17 08:59 08/30/17 07:35 8.6 MG Sertraline HCl (Zoloft Tab) 75 mg QAM PO 08/23/17 09:00 09/22/17 08:59 08/30/17 07:35 75 MG Bimatoprost (Lumigan 0.01%) 1 drops HS OP 08/22/17 21:00 09/21/17 20:59 08/30/17 21:28 1 DROPS Ferrous Sulfate (Feosol Tab) 325 mg BID PO 08/22/17 21:00 09/21/17 20:59 08/30/17 21:28 325 MG Oxycodone HCl (Roxicodone Immediate Rel Tab) 5 mg Q6H PRN PO 08/25/17 16:00 09/08/17 15:59 08/28/17 23:03 5 MG Metoclopramide HCl (Reglan Inj) 10 mg Q8@0000,0800,1600 IV. 08/25/17 16:00 09/24/17 15:59 08/30/17 15:59 10 MG Morphine Sulfate (MoRPHine SULFATE INJ) 2 mg Q1H PRN IV 08/25/17 16:00 09/08/17 15:59 08/29/17 08:09 2 MG Acetaminophen 1000 mg/Empty Bag 100 ml @ 400 mls/hr Q8H PRN IV 08/26/17 08:45 09/25/17 08:44 08/27/17 00:10 400 MLS/HR Magnesium Oxide (Mag-Ox Tab) 400 mg QAM PO 08/27/17 09:00 09/26/17 08:59 08/30/17 07:36 400 MG Amiodarone HCl (Cordarone Tab) 200 mg BID PO 08/27/17 21:00 09/26/17 20:59 08/30/17 21:28 200 MG Heparin Sodium/ Dextrose 500 ml @ 29 mls/hr [id number] PRN IV 08/28/17 18:45 09/27/17 18:44 08/30/17 10:35 29 MLS/HR Objective Vital Signs Date Time Temp Pulse Resp B/P (MAP) Pulse Ox O2 Delivery O2 Flow Rate FiO2 08/30/17 19:42 36.6 81 18 118/69 (85) 96 Room Air 08/30/17 16:00 Nasal Cannula 2.0 08/30/17 15:48 36.5 111 18 150/74 (99) 96 Nasal Cannula 2.0 08/30/17 12:00 Room Air 08/30/17 11:30 36.8 102 20 147/80 (102) 92 Room Air 08/30/17 09:15 96 Room Air 08/30/17 08:00 Nasal Cannula 2.0 08/30/17 07:33 36.6 91 20 125/68 (87) 97 Nasal Cannula 2.0 08/30/17 04:00 Nasal Cannula 2.0 08/30/17 03:33 36.6 93 17 135/63 (87) 97 Nasal Cannula 3.0 08/29/17 23:59 96 Nasal Cannula 2.0 08/29/17 23:33 36.7 97 20 127/74 (91) 97 Nasal Cannula 2.0 Physical Exam Comments: General Appearance: WDWN in NAD; thin HEENT: Head is normocephalic/atraumatic; Mucous membranes moist; Pharynx negative for exudate/lesions; Neck: Supple; Trachea midline; Neg JVD; Neg lymphadenopathy Chest: Chest tube noted on right lower chest wall Heart: RRR with systolic murmur Lungs: CTA in all lung hartmann bilaterally but diminished at bases - takes short inspirations; Respirations unlabored; Neg accessory muscle use; R lower lung field PleurX Abdomen: Soft, non-tender, non-distended; Positive BS x 4 quadrants Extremities: Neg cyanosis or edema Neurological: Speech is clearer today Neg focal neurologic deficits Psychiatric: Appropriate mood/affect Skin: ; Normal Color; Warm/Dry Laboratory Results Last 24 Hours Test 08/30/17 07:11 08/30/17 15:11 White Blood Count 6.52 K/uL Red Blood Count 3.27 M/uL Hemoglobin 7.8 g/dL Hematocrit 25.4 % Mean Corpuscular Volume 77.7 fL Mean Corpuscular Hemoglobin 23.9 pg Mean Corpuscular Hemoglobin Concent 30.7 g/dl Platelet Count 314 K/uL Mean Platelet Volume 9.9 fL Neutrophils (%) (Auto) 77.0 % Lymphocytes (%) (Auto) 10.0 % Monocytes (%) (Auto) 9.8 % Eosinophils (%) (Auto) 2.8 % Basophils (%) (Auto) 0.2 % Neutrophils # (Auto) 5.03 K/uL Lymphocytes # (Auto) 0.65 K/uL Monocytes # (Auto) 0.64 K/uL Eosinophils # (Auto) 0.18 K/uL Basophils # (Auto) 0.01 K/uL RDW Standard Deviation 56.1 fL RDW Coefficient of Variation 20.1 % Immature Granulocyte % (Auto) 0.2 % Immature Granulocyte # (Auto) 0.01 K/uL Anisocytosis PRESENT Tear Drop Cells 1+ Prothrombin Time 19.5 SECONDS Prothromb Time International Ratio 1.9 Activated Partial Thromboplast Time 45.7 SECONDS 65.7 SECONDS Partial Thromboplastin Ratio 1.8 2.5 Assessment and Plan This is a 71 yo M with PMHx of dilated cardiomyopathy with severe left ventricular dysfunction with EF equal to 45% in 08/2015, CAD s/p 3 DEZ to diagonal and distal RCA, and PDA in 03/2016, mild aortic stenosis hypertension, hyperlipidemia, elevated alkaline phosphatase, GERD, diverticulosis, depression , weight loss of 40 pounds in the past year, dysphagia, iron deficiency anemia, who presents after right thoracentesis performed by Dr. Lancaster on 08/18/17. Thoracic fluid was found to be purulent so he has been directly admitted to the hospital for IV antibiotics for empyema. Hypotensive after thoracoscopic extensive decortication of the right lung. Resolved. Downgraded from ICU R Complex Empyema and Complicated Pleural Effusion with R Pleur-X: -improved after procedure above. - Completed 7th day of zosyn today - Patient is breathing better now. No change. Still requires chest tube SVT and Paroxysmal Atrial Fibrillation/Flutter: NSR Currently - on 08/22 patient went into SVT in pre-op. Adenosine 6 mg and 12 mg with converted to flutter and resulted hypotension from rhythm. Underwent unsuccessful cardioversion; Spontaneously converted to NSR on 08/23 and no further arrhythmias - Amiodarone 200mg po bid - Continue heparin drip -- Discussed with patient who is in agreement for anticoagulation. - Digoxin D/C'd -Toprol was held due to bradycardia But will today resume but instead of 25 BID, will only receive 25 po daily of toprol XL - Cardiology following - recommendations appreciated - plan as above -will stop coumadin as patient is a candidate for NOAC. will continue heparin for now. Anemia Likely dilutional. Has remained stable Chronic Systolic CHF/Dilated Cardiomyopathy with Severe LV Dysfunction - EF 45% : CAD S/P PCI - HTN/HLD: - Toprol XL 25 mg daily, Atorvastatin 80 mg daily - ASA on hold -lasix IV given today Dysphagia/Unintentional Weight Loss/GERD/RUQ Pain: - Ease of eating improved with dental soft diet - discussed with daughter as well and states they are making arrangements for new dentures -- Given weight loss likely needs to fitting - Dental soft diet - GI followed and S/O - recommend to continue Protonix - SOLVENT PROCESS EXTRACTOR OPERATOR following - recommending moist regular diet Constipation: - Continue bowel regimen with Miralax, Dulcolax, Senna; PRN Suppositories DVT Prophylaxis: heparin gtt Code Status: FULL RESUSCITATION Continued [facility] stay due to: multiple IV medications needed, other (still requires chest tube) Discharge planning: home
[2017-08-31 03:30] VITALS: BP 131/67; PULSE 76; TEMP 36.6; O2SAT 91
--- NOTE | 2017-08-31 07:34 | DIAGNOSTIC IMAGING REPORT ---
CHEST ONE VIEW PORTABLE CLINICAL HISTORY: 71 years-old Male presenting with chest tube check. TECHNIQUE: Portable upright AP view of the chest was obtained. COMPARISON: 08/30/2017. FINDINGS: Large bore right pleural drain remains positioned at the paramediastinal right base with a slightly kinked configuration, unchanged. Atherosclerosis of aortic arch. Cardiac silhouette top normal in size. Interval increase in patchy peripheral right lung and bibasilar opacities. Small bilateral pleural effusions suspected. Lucency at the right costophrenic angle persists. Degenerative changes of the thoracic spine. Upper abdomen normal. IMPRESSION: 1. Unchanged position of the large bore right pleural drain at the right lung base with a kinked configuration. Correlate clinically for drain malfunction. 2. Interval increase in patchy peripheral right lung and bibasilar opacities. Infection cannot be excluded. A component of pulmonary edema may also be present. 3. Small bilateral pleural effusions suspected. 4. Unchanged lucency at the right lung base, possibly small loculated pneumothorax. Electronically signed by: Alex Ross M.D. 08/31/2017 7:33 AM Dictated Date/Time: 08/31/2017 7:31 AM
[2017-08-31 07:52] VITALS: BP 136/76; PULSE 73; TEMP 36.5; O2SAT 98
[2017-08-31] MEDS: FUROSEMIDE 40 MG TAB PO SCH (08:03)
[2017-08-31] MEDS: METOCLOPRAMIDE HCL INJ 5 MG/ML 2 ML VIAL IV. SCH ×3 (08:03→23:45)
[2017-08-31] MEDS: PANTOprazole SOD 40 MG TAB PO SCH (08:03)
[2017-08-31] MEDS: MAGNESIUM OXIDE 400 MG TAB PO SCH (08:04)
[2017-08-31] MEDS: SENNA 8.6 MG TAB PO SCH (08:05)
[2017-08-31] MEDS: SERTRALINE HCL 50 MG TAB PO SCH (08:05)
[2017-08-31] MEDS: MULTIVITAMIN TAB PO SCH (08:05)
[2017-08-31] MEDS: GUAIFENESIN 600 MG TABCR PO SCH ×2 (08:05→21:30)
[2017-08-31] MEDS: AMIODARONE 200 MG TAB PO SCH ×2 (08:06→21:29)
[2017-08-31] MEDS: ATORVASTATIN 40 MG TAB PO SCH (08:06)
[2017-08-31] MEDS: FERROUS SULFATE 325 MG TAB PO SCH ×2 (08:07→21:29)
[2017-08-31] MEDS: BISACODYL 5 MG TABEC PO SCH (08:07)
[2017-08-31] MEDS: POLYETHYLENE (MIRALAX) 17 GM PACK PO SCH (08:07)
[2017-08-31 10:44] LABS: PTT PATIENT 54.5 SECONDS (21.0-31.0)
--- NOTE | 2017-08-31 11:39 | Surgery Progress Note ---
Subjective Date of Service: Aug 31, 2017. Pt. noted pain control is adequate. No SOB. No N/V. Discussed with RN--pt. ambulating limited amounts in room. No concerns noted at the present time. Objective Vitals Date Time Temp Pulse Resp B/P (MAP) Pulse Ox O2 Delivery O2 Flow Rate FiO2 08/31/17 08:00 Room Air 08/31/17 07:52 36.5 73 20 136/76 (96) 98 Nasal Cannula 2.0 08/31/17 04:00 Room Air 08/31/17 03:30 36.6 76 20 131/67 (88) 91 Nasal Cannula 2.0 08/31/17 00:02 Room Air 08/30/17 23:57 36.8 78 16 119/55 (76) 95 Room Air 08/30/17 20:00 Room Air 08/30/17 19:42 36.6 81 18 118/69 (85) 96 Room Air 08/30/17 16:00 Nasal Cannula 2.0 08/30/17 15:48 36.5 111 18 150/74 (99) 96 Nasal Cannula 2.0 08/30/17 12:00 Room Air Physical Exam General: + well developed, + well nourished, No distress CV: + IRR Pulmonary: + pertinent finding (BS decreased at bases), No accessory muscle use, No respiratory distress Extremities: No calf tenderness Neurologic: + alert & oriented x 3 Radiology CXR today does not show significant pleural effusion or pneumothorax Drains / Tubes chest tube (no air leak; 440 cc last 24 hours; 125 cc last shift) Assessment & Plan 71 year old male s/p decortication -keep CT in place due to amount of drainage: -discussed with RN that CT may be taken off suction for pt. to ambulate -encourage use of IS, coughing, deep breathing
[2017-08-31 15:20] VITALS: BP 122/66; PULSE 69; TEMP 37; O2SAT 94
[2017-08-31 19:28] VITALS: BP 118/63; PULSE 74; TEMP 36.8; O2SAT 96
[2017-08-31] MEDS: BIMATOPROST 0.01% OP SOLN 2.5 ML BTL OP SCH (21:30)
[2017-08-31] MEDS: HEPARIN 25,000 UNIT/500ML D5W 500 ML IV PRN (21:34)
[2017-08-31 23:38] VITALS: BP 123/62; PULSE 76; TEMP 36.7; O2SAT 94
[2017-09-01] VITALS (7 sets, daily range): BP systolic 116–143; BP diastolic 62–69; PULSE 66–77; TEMP 36.3–36.9; O2SAT 92–99
[2017-09-01] MEDS ORDERED: ACETAMINOPHEN 325 MG TAB ONE (03:16)
--- NOTE | 2017-09-01 07:07 | Progress Note ---
Subjective Date of Service: Aug 31, 2017. Subjective Patient seen at Aug 31 at 13:00 Patient denies any complaints at this time, patient denies, N/V diarrhea, chest pain, SOB. Problem List Medical Problems: (1) Alkaline phosphatase elevation Status: Acute (2) Anemia Status: Acute (3) Chest pain Status: Acute (4) Gastritis Status: Acute (5) Pleural effusion, bilateral Status: Acute Review of Systems Constitutional: No fever Eyes: No worsening of vision ENT: No hearing loss Respiratory: No cough Cardiac: No chest pain Abdomen: No pain Musculoskeletal: No joint pain Skin: No rash, No itch Medications Current Inpatient Medications Medications (Trade) Dose Ordered Sig/Kaitlynn Route Start Time Stop Time Status Last Admin Dose Admin Magnesium Hydroxide (Milk Of Magnesia Susp) 30 ml Q6H PRN PO 08/18/17 17:30 09/17/17 17:29 08/27/17 13:02 30 ML Polyethylene (Miralax Powder Packet) 17 gm DAILY PRN PO 08/18/17 17:30 09/17/17 17:29 Ondansetron HCl (Zofran Inj) 4 mg Q6H PRN IV 08/18/17 17:30 09/17/17 17:29 08/22/17 11:11 4 MG Guaifenesin (Mucinex Contr Rel Tab) 600 mg Q12 PO 08/18/17 21:00 09/17/17 20:59 08/31/17 21:30 600 MG Hydroxyzine HCl (Vistaril Tab) 25 mg HS PRN PO 08/20/17 00:30 09/19/17 00:29 08/20/17 00:40 25 MG Bisacodyl (Dulcolax Tab) 10 mg DAILY PO 08/21/17 10:00 09/20/17 09:59 08/30/17 07:44 10 MG Polyethylene (Miralax Powder Packet) 17 gm DAILY PO 08/21/17 10:00 09/20/17 09:59 08/30/17 07:36 17 GM Bisacodyl (Dulcolax Supp) 10 mg DAILY PRN NC 08/21/17 10:00 09/20/17 09:59 Atorvastatin Calcium (Lipitor Tab) 80 mg DAILY PO 08/23/17 09:00 09/22/17 08:59 08/31/17 08:06 80 MG Furosemide (Lasix Tab) 40 mg QAM PO 08/23/17 09:00 09/22/17 08:59 Future hold 08/31/17 08:03 40 MG Multivitamins (Multivitamin Tab) 1 tab QAM PO 08/23/17 09:00 09/22/17 08:59 08/31/17 08:05 1 TAB Pantoprazole Sodium (Protonix Tab) 40 mg QAM PO 08/23/17 09:00 09/22/17 08:59 08/31/17 08:03 40 MG Senna (Senokot Tab) 8.6 mg QAM PO 08/23/17 09:00 09/22/17 08:59 08/31/17 08:05 8.6 MG Sertraline HCl (Zoloft Tab) 75 mg QAM PO 08/23/17 09:00 09/22/17 08:59 08/31/17 08:05 75 MG Bimatoprost (Lumigan 0.01%) 1 drops HS OP 08/22/17 21:00 09/21/17 20:59 08/31/17 21:30 1 DROPS Ferrous Sulfate (Feosol Tab) 325 mg BID PO 08/22/17 21:00 09/21/17 20:59 08/31/17 21:29 325 MG Oxycodone HCl (Roxicodone Immediate Rel Tab) 5 mg Q6H PRN PO 08/25/17 16:00 09/08/17 15:59 08/28/17 23:03 5 MG Metoclopramide HCl (Reglan Inj) 10 mg Q8@0000,0800,1600 IV. 08/25/17 16:00 09/24/17 15:59 08/31/17 23:45 10 MG Morphine Sulfate (MoRPHine SULFATE INJ) 2 mg Q1H PRN IV 08/25/17 16:00 09/08/17 15:59 08/29/17 08:09 2 MG Magnesium Oxide (Mag-Ox Tab) 400 mg QAM PO 08/27/17 09:00 09/26/17 08:59 08/31/17 08:04 400 MG Amiodarone HCl (Cordarone Tab) 200 mg BID PO 08/27/17 21:00 09/26/17 20:59 08/31/17 21:29 200 MG Heparin Sodium/ Dextrose 500 ml @ 29 mls/hr [id number] PRN IV 08/28/17 18:45 09/27/17 18:44 08/31/17 21:34 29 MLS/HR Acetaminophen (Tylenol Tab) 650 mg Q4H PRN PO 09/01/17 03:15 10/01/17 03:14 Objective Vital Signs Date Time Temp Pulse Resp B/P (MAP) Pulse Ox O2 Delivery O2 Flow Rate FiO2 09/01/17 04:00 Room Air 09/01/17 03:38 36.6 75 19 128/69 (88) 98 Nasal Cannula 2.0 09/01/17 00:02 Room Air 08/31/17 23:38 36.7 76 18 123/62 (82) 94 Room Air 08/31/17 20:00 Room Air 08/31/17 19:28 36.8 74 16 118/63 (81) 96 Nasal Cannula 2.0 08/31/17 16:00 Room Air 08/31/17 15:20 37.0 69 18 122/66 (84) 94 Room Air 08/31/17 12:00 Room Air 08/31/17 08:00 Room Air 08/31/17 07:52 36.5 73 20 136/76 (96) 98 Nasal Cannula 2.0 Physical Exam Comments: General Appearance: WDWN in NAD; thin HEENT: Head is normocephalic/atraumatic; Mucous membranes moist; Pharynx negative for exudate/lesions; Neck: Supple; Trachea midline; Neg JVD; Neg lymphadenopathy Chest: Chest tube noted on right lower chest wall Heart: RRR with systolic murmur Lungs: CTA in all lung hartmann bilaterally but diminished at bases - takes short inspirations; Respirations unlabored; Neg accessory muscle use; R lower lung field PleurX Abdomen: Soft, non-tender, non-distended; Positive BS x 4 quadrants Extremities: Neg cyanosis or edema Neurological: Speech is clearer today Neg focal neurologic deficits Psychiatric: Appropriate mood/affect Skin: ; Normal Color; Warm/Dry Laboratory Results Last 24 Hours Test 08/31/17 09:53 08/31/17 16:23 Activated Partial Thromboplast Time 54.5 SECONDS Partial Thromboplastin Ratio 2.1 Bedside Glucose 114 mg/dl Assessment and Plan This is a 71 yo M with PMHx of dilated cardiomyopathy with severe left ventricular dysfunction with EF equal to 45% in 08/2015, CAD s/p 3 DEZ to diagonal and distal RCA, and PDA in 03/2016, mild aortic stenosis hypertension, hyperlipidemia, elevated alkaline phosphatase, GERD, diverticulosis, depression , weight loss of 40 pounds in the past year, dysphagia, iron deficiency anemia, who presents after right thoracentesis performed by Dr. Lancaster on 08/18/17. Thoracic fluid was found to be purulent so he has been directly admitted to the hospital for IV antibiotics for empyema. Hypotensive after thoracoscopic extensive decortication of the right lung. Resolved. R Complex Empyema and Complicated Pleural Effusion with R Pleur-X: -improved after procedure above. - Completed 7th day of zosyn - Patient is breathing better now. No change. Still requires chest tube SVT and Paroxysmal Atrial Fibrillation/Flutter: NSR Currently - on 08/22 patient went into SVT in pre-op. Adenosine 6 mg and 12 mg with converted to flutter and resulted hypotension from rhythm. Underwent unsuccessful cardioversion; Spontaneously converted to NSR on 08/23 and no further arrhythmias - Amiodarone 200mg po bid - Continue heparin drip -- Discussed with patient who is in agreement for anticoagulation. - Digoxin D/C'd -Toprol was held due to bradycardia But will today resume but instead of 25 BID, will only receive 25 po daily of toprol XL - Cardiology following - recommendations appreciated - plan as above -will stop coumadin as patient is a candidate for NOAC. will continue heparin for now. will recheck INR tomorrow. If below 2.0 will initiate NOAC. Anemia Has remained stable Chronic Systolic CHF/Dilated Cardiomyopathy with Severe LV Dysfunction - EF 45% : CAD S/P PCI - HTN/HLD: - Toprol XL 25 mg daily, Atorvastatin 80 mg daily - ASA on hold -on lasix Dysphagia/Unintentional Weight Loss/GERD/RUQ Pain: - Ease of eating improved with dental soft diet - discussed with daughter as well and states they are making arrangements for new dentures -- Given weight loss likely needs to fitting - Dental soft diet - GI followed and S/O - recommend to continue Protonix - LOGISTICS CLERK following - recommending moist regular diet Constipation: - Continue bowel regimen with Miralax, Dulcolax, Senna; PRN Suppositories DVT Prophylaxis: heparin gtt Code Status: FULL RESUSCITATION Continued [facility] stay due to: multiple IV medications needed, other (still requires chest tube) Discharge planning: home
[2017-09-01] MEDS: GUAIFENESIN 600 MG TABCR PO SCH ×2 (07:33→20:32)
[2017-09-01] MEDS: FERROUS SULFATE 325 MG TAB PO SCH ×2 (07:34→20:31)
[2017-09-01] MEDS: SERTRALINE HCL 50 MG TAB PO SCH (07:35)
[2017-09-01] MEDS: MULTIVITAMIN TAB PO SCH (07:35)
[2017-09-01] MEDS: MAGNESIUM OXIDE 400 MG TAB PO SCH (07:36)
[2017-09-01] MEDS: PANTOprazole SOD 40 MG TAB PO SCH (07:36)
[2017-09-01] MEDS: FUROSEMIDE 40 MG TAB PO SCH (07:37)
[2017-09-01] MEDS: POLYETHYLENE (MIRALAX) 17 GM PACK PO SCH (07:38)
[2017-09-01] MEDS: ATORVASTATIN 40 MG TAB PO SCH (07:38)
[2017-09-01] MEDS: AMIODARONE 200 MG TAB PO SCH ×2 (07:38→20:31)
[2017-09-01] MEDS: SENNA 8.6 MG TAB PO SCH (07:39)
[2017-09-01] MEDS: BISACODYL 5 MG TABEC PO SCH (07:39)
[2017-09-01] MEDS: METOCLOPRAMIDE HCL INJ 5 MG/ML 2 ML VIAL IV. SCH ×3 (07:40→23:29)
[2017-09-01 08:02] LABS: BASO % 0.4 %; BASO ABS # 0.03 K/uL (0-0.2); EOS % 3.1 %; EOS ABS # 0.22 K/uL (0-0.5); HEMATOCRIT 26.8 % (42-52); HEMOGLOBIN 8.3 g/dL (14.0-18.0); IG# 0.03 K/uL (0.00-0.02); LYMPH % 10.3 %; LYMPH ABS # 0.73 K/uL (1.2-3.4); MEAN CELL VOLUME 78.1 fL (80-100); MEAN CORPUSCULAR HEMOGLOBIN 24.2 pg (25-34); MEAN PLATELET VOLUME 9.4 fL (7.4-10.4); MONO % 11.2 %; MONO ABS # 0.79 K/uL (0.11-0.59); NEUT % 74.6 %; NEUT ABS # 5.27 K/uL (1.4-6.5); PLATELET COUNT 302 K/uL (130-400); RED CELL DISTRIBUTION WIDTH CV 20.6 % (11.5-14.5); RED CELL DISTRIBUTION WIDTH SD 57.7 fL (36.4-46.3); WHITE BLOOD COUNT 7.07 K/uL (4.8-10.8)
--- NOTE | 2017-09-01 08:11 | Surgery Progress Note ---
Subjective Date of Service: Sep 01, 2017. Pt. denies SOB. No pain from chest tube. Discussed with RN--no concern noted this am. Objective Vitals Date Time Temp Pulse Resp B/P (MAP) Pulse Ox O2 Delivery O2 Flow Rate FiO2 09/01/17 07:24 36.6 74 20 139/62 (87) 99 1.0 09/01/17 04:00 Room Air 09/01/17 03:38 36.6 75 19 128/69 (88) 98 Nasal Cannula 2.0 09/01/17 00:02 Room Air 08/31/17 23:38 36.7 76 18 123/62 (82) 94 Room Air 08/31/17 20:00 Room Air 08/31/17 19:28 36.8 74 16 118/63 (81) 96 Nasal Cannula 2.0 08/31/17 16:00 Room Air 08/31/17 15:20 37.0 69 18 122/66 (84) 94 Room Air 08/31/17 12:00 Room Air Physical Exam General: + well developed, + well nourished CV: + IRR Pulmonary: + pertinent finding (decreased BS at bases), No accessory muscle use, No respiratory distress Neurologic: + alert & oriented x 3 Drains / Tubes chest tube (405 cc last 24 hours ) Assessment & Plan 71 year old male s/p decortication -will plan on keeping CT in place due to amount of drainage: -encourage use of IS, coughing, deep breathing -increase ambulation
[2017-09-01 08:12] LABS: INR 1.7 (0.9-1.1)
[2017-09-01 09:57] LABS: INR 1.7 (0.9-1.1)
[2017-09-01 10:07] LABS: PTT PATIENT 51.7 SECONDS (21.0-31.0)
[2017-09-01] MEDS: HEPARIN 25,000 UNIT/500ML D5W 500 ML IV PRN (14:27)
--- NOTE | 2017-09-01 15:04 | Cardiology Follow-Up ---
Subjective Subjective Date of Service: Sep 01, 2017. Pt evaluation today including: conversation w/ patient, physical exam, chart review, lab review, review of studies, review of inpatient medication list Additional Details: Feeling well. No chest pain. Breathing stable. Telemetry reviewed -- sinus rhythm with PACs Problem List Medical Problems: (1) Alkaline phosphatase elevation Status: Acute (2) Anemia Status: Acute (3) Chest pain Status: Acute (4) Gastritis Status: Acute (5) Pleural effusion, bilateral Status: Acute Review of Systems Constitutional: No fever Eyes: No worsening of vision ENT: No hearing loss Respiratory: No cough Cardiac: No chest pain Abdomen: No pain Musculoskeletal: No joint pain Male : No dysuria Neurologic: No memory loss Psychiatric: No depression symptoms Heme: No abnormal bleeding/bruising Endo: No fatigue Skin: No rash, No itch Objective Vital Signs Last Vital Signs Documentation Date Time Temp Pulse Resp B/P (MAP) Pulse Ox O2 Delivery O2 Flow Rate FiO2 09/01/17 11:57 Room Air 09/01/17 11:21 36.9 66 20 118/66 (83) 97 09/01/17 07:24 1.0 Physical Exam: General Appearance: no apparent distress, + thin ENT: hearing grossly normal Neck: supple Respiratory/Chest: no respiratory distress, no accessory muscle use, + decreased breath sounds (At bases bilaterally- improved from friday), + pertinent finding (one chest tube in place, draining serosanguineous fluid) Cardiovascular: regular rate, rhythm, + systolic murmur (3/6 systolic ejection murmur at left upper sternal border) Abdomen: normal bowel sounds, non tender Extremities: no pedal edema, no calf tenderness Neurologic/Psychiatric: alert Skin: normal color, warm/dry Assessment and Plan 1. Complicated Pleural effusion/Hemothorax now POD7 s/p thoracoscopy with decortication 2. Paroxysmal Atrial flutter with RVR 3. Intermittent junctional bradycardia 4. Chronic systolic heart failure/ICM EF 35-40% . 5. Multivessel CAD 6. Moderate to severe 7. Dysphagia/Unintentional weight loss 8. Anemia Pulmonary congestion improved, blood pressure stable. Remains in sinus rhythm. --continue lasix 40mg daily --continue current amiodarone 200 mg BID --> transition to daily as an outpatient --remains on heparin, plan for NOAC on discharge. --can resume low dose metoprolol 12.5 bid --continue current statin Will continue to follow. Continued [facility] stay due to: multiple IV medications needed, other (still requires chest tube) Discharge planning: home Medications: Current Inpatient Medications Medications (Trade) Dose Ordered Sig/Kaitlynn Route Start Time Stop Time Status Last Admin Dose Admin Magnesium Hydroxide (Milk Of Magnesia Susp) 30 ml Q6H PRN PO 08/18/17 17:30 09/17/17 17:29 08/27/17 13:02 30 ML Polyethylene (Miralax Powder Packet) 17 gm DAILY PRN PO 08/18/17 17:30 09/17/17 17:29 Ondansetron HCl (Zofran Inj) 4 mg Q6H PRN IV 08/18/17 17:30 09/17/17 17:29 08/22/17 11:11 4 MG Guaifenesin (Mucinex Contr Rel Tab) 600 mg Q12 PO 08/18/17 21:00 09/17/17 20:59 09/01/17 07:33 600 MG Hydroxyzine HCl (Vistaril Tab) 25 mg HS PRN PO 08/20/17 00:30 09/19/17 00:29 08/20/17 00:40 25 MG Bisacodyl (Dulcolax Tab) 10 mg DAILY PO 08/21/17 10:00 09/20/17 09:59 08/30/17 07:44 10 MG Polyethylene (Miralax Powder Packet) 17 gm DAILY PO 08/21/17 10:00 09/20/17 09:59 08/30/17 07:36 17 GM Bisacodyl (Dulcolax Supp) 10 mg DAILY PRN TN 08/21/17 10:00 09/20/17 09:59 Atorvastatin Calcium (Lipitor Tab) 80 mg DAILY PO 08/23/17 09:00 09/22/17 08:59 09/01/17 07:38 80 MG Furosemide (Lasix Tab) 40 mg QAM PO 08/23/17 09:00 09/22/17 08:59 Future hold 09/01/17 07:37 40 MG Multivitamins (Multivitamin Tab) 1 tab QAM PO 08/23/17 09:00 09/22/17 08:59 09/01/17 07:35 1 TAB Pantoprazole Sodium (Protonix Tab) 40 mg QAM PO 08/23/17 09:00 09/22/17 08:59 09/01/17 07:36 40 MG Senna (Senokot Tab) 8.6 mg QAM PO 08/23/17 09:00 09/22/17 08:59 08/31/17 08:05 8.6 MG Sertraline HCl (Zoloft Tab) 75 mg QAM PO 08/23/17 09:00 09/22/17 08:59 09/01/17 07:35 75 MG Bimatoprost (Lumigan 0.01%) 1 drops HS OP 08/22/17 21:00 09/21/17 20:59 08/31/17 21:30 1 DROPS Ferrous Sulfate (Feosol Tab) 325 mg BID PO 08/22/17 21:00 09/21/17 20:59 09/01/17 07:34 325 MG Oxycodone HCl (Roxicodone Immediate Rel Tab) 5 mg Q6H PRN PO 08/25/17 16:00 09/08/17 15:59 08/28/17 23:03 5 MG Metoclopramide HCl (Reglan Inj) 10 mg Q8@0000,0800,1600 IV. 08/25/17 16:00 09/24/17 15:59 09/01/17 07:40 10 MG Morphine Sulfate (MoRPHine SULFATE INJ) 2 mg Q1H PRN IV 08/25/17 16:00 09/08/17 15:59 08/29/17 08:09 2 MG Magnesium Oxide (Mag-Ox Tab) 400 mg QAM PO 08/27/17 09:00 09/26/17 08:59 09/01/17 07:36 400 MG Amiodarone HCl (Cordarone Tab) 200 mg BID PO 08/27/17 21:00 09/26/17 20:59 09/01/17 07:38 200 MG Heparin Sodium/ Dextrose 500 ml @ 29 mls/hr [id number] PRN IV 08/28/17 18:45 09/27/17 18:44 09/01/17 14:27 29 MLS/HR Acetaminophen (Tylenol Tab) 650 mg Q4H PRN PO 09/01/17 03:15 10/01/17 03:14 Lab Results: 09/01/17 07:47 Red Blood Count 3.43, Mean Corpuscular Volume 78.1, Mean Corpuscular Hemoglobin 24.2, Mean Corpuscular Hemoglobin Concent 31.0, Mean Platelet Volume 9.4, Neutrophils (%) (Auto) 74.6, Lymphocytes (%) (Auto) 10.3, Monocytes (%) (Auto) 11.2, Eosinophils (%) (Auto) 3.1, Basophils (%) (Auto) 0.4, Neutrophils # (Auto ) 5.27, Lymphocytes # (Auto) 0.73, Monocytes # (Auto) 0.79, Eosinophils # (Auto ) 0.22, Basophils # (Auto) 0.03 Test 08/31/17 16:23 09/01/17 07:47 Bedside Glucose 114 mg/dl (70-99) White Blood Count 7.07 K/uL (4.8-10.8) Red Blood Count 3.43 M/uL (4.7-6.1) Hemoglobin 8.3 g/dL (14.0-18.0) Hematocrit 26.8 % (42-52) Mean Corpuscular Volume 78.1 fL (80-100) Mean Corpuscular Hemoglobin 24.2 pg (25-34) Mean Corpuscular Hemoglobin Concent 31.0 g/dl (32-36) Platelet Count 302 K/uL (130-400) Mean Platelet Volume 9.4 fL (7.4-10.4) Neutrophils (%) (Auto) 74.6 % Lymphocytes (%) (Auto) 10.3 % Monocytes (%) (Auto) 11.2 % Eosinophils (%) (Auto) 3.1 % Basophils (%) (Auto) 0.4 % Neutrophils # (Auto) 5.27 K/uL (1.4-6.5) Lymphocytes # (Auto) 0.73 K/uL (1.2-3.4) Monocytes # (Auto) 0.79 K/uL (0.11-0.59) Eosinophils # (Auto) 0.22 K/uL (0-0.5) Basophils # (Auto) 0.03 K/uL (0-0.2) RDW Standard Deviation 57.7 fL (36.4-46.3) RDW Coefficient of Variation 20.6 % (11.5-14.5) Immature Granulocyte % (Auto) 0.4 % Immature Granulocyte # (Auto) 0.03 K/uL (0.00-0.02) Large Platelets 2+ Tear Drop Cells 1+ Ovalocytes 1+ Acanthocytes 1+ Prothrombin Time 17.2 SECONDS (9.0-12.0) Prothromb Time International Ratio 1.7 (0.9-1.1) Activated Partial Thromboplast Time 51.7 SECONDS (21.0-31.0) Partial Thromboplastin Ratio 2.0
--- NOTE | 2017-09-01 15:04 | Progress Note ---
Subjective Date of Service: Sep 01, 2017. Subjective Pt evaluation today including: conversation w/ patient, physical exam, chart review, lab review, review of studies, conversation w/ it architecture consultant, review of inpatient medication list Doing fair, nurse reported still have more than 400 chest tube drainage this morning, chest surgeon plan to keep draining, otherwise generally feeling okay eating drinking fair, deny fever and chill Problem List Medical Problems: (1) Alkaline phosphatase elevation Status: Acute (2) Anemia Status: Acute (3) Chest pain Status: Acute (4) Gastritis Status: Acute (5) Pleural effusion, bilateral Status: Acute Review of Systems Constitutional: + weakness, + fatigue, No fever, No chills, No sweats, No weight loss, No problem reported Eyes: No worsening of vision, No eye pain, No redness, No discharge, No diplopia ENT: No hearing loss, No unusual epistaxis, No nasal symptoms, No sore throat, No tinnitus, No dental problems, No trouble swallowing Respiratory: + cough, No sputum, No wheezing, No dyspnea on exertion, No dyspnea at rest, No hemoptysis Cardiac: No chest pain, No orthopnea, No PND, No edema, No claudication, No palpitations Abdomen: No pain, No nausea, No vomiting, No diarrhea, No constipation Musculoskeletal: No joint pain, No muscle pain, No swelling, No calf pain Male : No dysuria, No urinary frequency, No incontinence, No nocturia more than once/night, No slowing stream, No hematuria Neurologic: No memory loss, No paralysis, No weakness, No numbness/tingling, No vertigo, No balance problems Psychiatric: No depression symptoms, No anhedonism, No anxiety, No insomnia, No substance abuse Heme: No abnormal bleeding/bruising, No clotting problems, No swollen lymph nodes, No night sweats Endo: No fatigue, No excessive thirst, No excessive urination Skin: No rash, No itch, No new/changing skin lesions, No color change, No bleeding Objective Vital Signs Date Time Temp Pulse Resp B/P (MAP) Pulse Ox O2 Delivery O2 Flow Rate FiO2 09/01/17 11:57 Room Air 09/01/17 11:21 36.9 66 20 118/66 (83) 97 Room Air 09/01/17 08:00 Room Air 09/01/17 07:24 36.6 74 20 139/62 (87) 99 1.0 09/01/17 04:00 Room Air 09/01/17 03:38 36.6 75 19 128/69 (88) 98 Nasal Cannula 2.0 09/01/17 00:02 Room Air 08/31/17 23:38 36.7 76 18 123/62 (82) 94 Room Air 08/31/17 20:00 Room Air 08/31/17 19:28 36.8 74 16 118/63 (81) 96 Nasal Cannula 2.0 08/31/17 16:00 Room Air 08/31/17 15:20 37.0 69 18 122/66 (84) 94 Room Air Physical Exam General Appearance: WD/WN, no apparent distress, + thin, + pertinent finding ( chronic ill-looking, but pleasant and conversational) Eyes: normal inspection, PERRL, EOMI, sclerae normal ENT: normal ENT inspection, hearing grossly normal, pharynx normal Neck: supple, no adenopathy, thyroid normal, no JVD, no carotid bruits, trachea midline Respiratory/Chest: chest non-tender, normal breath sounds, no respiratory distress, no accessory muscle use, + decreased breath sounds, + pertinent finding (right chest tube in place) Cardiovascular: regular rate, rhythm, no edema, no gallop, no JVD, no murmur Abdomen: normal bowel sounds, non tender, soft, no organomegaly, no pulsatile mass Extremities: normal range of motion, non-tender, normal inspection, no pedal edema, no calf tenderness, normal capillary refill, pelvis stable Neurologic/Psychiatric: lumber tripper II-XII nml as tested, no motor/sensory deficits, alert, normal mood/affect, oriented x 3 Skin: normal color, warm/dry, no rash Lymphatic: no adenopathy Laboratory Results Last 24 Hours Test 08/31/17 16:23 09/01/17 07:47 Bedside Glucose 114 mg/dl White Blood Count 7.07 K/uL Red Blood Count 3.43 M/uL Hemoglobin 8.3 g/dL Hematocrit 26.8 % Mean Corpuscular Volume 78.1 fL Mean Corpuscular Hemoglobin 24.2 pg Mean Corpuscular Hemoglobin Concent 31.0 g/dl Platelet Count 302 K/uL Mean Platelet Volume 9.4 fL Neutrophils (%) (Auto) 74.6 % Lymphocytes (%) (Auto) 10.3 % Monocytes (%) (Auto) 11.2 % Eosinophils (%) (Auto) 3.1 % Basophils (%) (Auto) 0.4 % Neutrophils # (Auto) 5.27 K/uL Lymphocytes # (Auto) 0.73 K/uL Monocytes # (Auto) 0.79 K/uL Eosinophils # (Auto) 0.22 K/uL Basophils # (Auto) 0.03 K/uL RDW Standard Deviation 57.7 fL RDW Coefficient of Variation 20.6 % Immature Granulocyte % (Auto) 0.4 % Immature Granulocyte # (Auto) 0.03 K/uL Large Platelets 2+ Tear Drop Cells 1+ Ovalocytes 1+ Acanthocytes 1+ Prothrombin Time 17.2 SECONDS Prothromb Time International Ratio 1.7 Activated Partial Thromboplast Time 51.7 SECONDS Partial Thromboplastin Ratio 2.0 Assessment and Plan 71 yo M with right pleural effusion S/P right thoracentesis performed by Dr. Lancaster on 08/18/17. Thoracic fluid was found to be purulent so he has been directly admitted to the hospital for IV antibiotics for empyema. R Complex Empyema and Complicated Pleural Effusion with R Pleur-X, improved after procedure, Completed 7th day of zosyn , Still requires chest tube, chest surgeon follow-up SVT and Paroxysmal Atrial Fibrillation/Flutter: NSR Currently on 08/22 patient went into SVT in pre-op. Adenosine 6 mg and 12 mg with converted to flutter and resulted hypotension from rhythm. Underwent unsuccessful cardioversion; Spontaneously converted to NSR on 08/23 and no further arrhythmias Amiodarone 200mg po bid Continue heparin drip, Per documentation patient is in agreement for anticoagulation. Digoxin D/C'd , Toprol was held due to bradycardia, resumed yesterday but instead of 25 BID, receive 25 po daily of toprol XL Cardiology following - recommendations appreciated - plan as above has stop coumadin as patient is a candidate for NOAC. today's INR is 1.7, will initiate NOAC, I pick up man eric for a fib stroke prevention Anemia Has remained stable Chronic Systolic CHF/Dilated Cardiomyopathy with Severe LV Dysfunction - EF 45% : CAD S/P PCI - HTN/HLD: cont Toprol XL 25 mg daily, Atorvastatin 80 mg daily ASA on hold on lasix Dysphagia/Unintentional Weight Loss/GERD/RUQ Pain: GI followed and S/O - recommend to continue Protonix Continue moist regular diet PMHx of dilated cardiomyopathy with severe left ventricular dysfunction with EF equal to 45% in 08/2015, CAD s/p 3 DEZ to diagonal and distal RCA, and PDA in , mild aortic stenosis hypertension, hyperlipidemia, elevated alkaline phosphatase, GERD, diverticulosis, depression, weight loss of 40 pounds in the past year, dysphagia, iron deficiency anemia. DVT Prophylaxis: heparin gtt, now change to eliquis Code Status: FULL RESUSCITATION Continued [facility] stay due to: multiple IV medications needed, other (still requires chest tube) Discharge planning: home
[2017-09-01] MEDS: APIXABAN 2.5 MG TAB PO SCH (16:35)
[2017-09-01] MEDS: BIMATOPROST 0.01% OP SOLN 2.5 ML BTL OP SCH (20:31)
[2017-09-01] MEDS ORDERED: APIXABAN 2.5 MG TAB PO SCH (21:00)
[2017-09-02 03:30] VITALS: BP 111/54; PULSE 79; TEMP 36.8; O2SAT 93
[2017-09-02] MEDS: ACETAMINOPHEN 325 MG TAB PO PRN ×4 (03:34→21:56)
[2017-09-02] MEDS: APIXABAN 2.5 MG TAB PO SCH ×2 (06:17→17:15)
[2017-09-02 07:26] VITALS: BP 131/67; PULSE 72; TEMP 36.6; O2SAT 94
[2017-09-02] MEDS: SERTRALINE HCL 50 MG TAB PO SCH (07:45)
[2017-09-02] MEDS: GUAIFENESIN 600 MG TABCR PO SCH ×2 (07:45→19:37)
[2017-09-02] MEDS: AMIODARONE 200 MG TAB PO SCH ×2 (07:46→19:37)
[2017-09-02] MEDS: MULTIVITAMIN TAB PO SCH (07:46)
[2017-09-02] MEDS: MAGNESIUM OXIDE 400 MG TAB PO SCH (07:46)
[2017-09-02] MEDS: PANTOprazole SOD 40 MG TAB PO SCH (07:46)
[2017-09-02] MEDS: FERROUS SULFATE 325 MG TAB PO SCH ×2 (07:46→19:37)
[2017-09-02] MEDS: FUROSEMIDE 40 MG TAB PO SCH (07:46)
[2017-09-02] MEDS: POLYETHYLENE (MIRALAX) 17 GM PACK PO SCH (07:47)
[2017-09-02] MEDS: BISACODYL 5 MG TABEC PO SCH (07:47)
[2017-09-02] MEDS: ATORVASTATIN 40 MG TAB PO SCH (07:47)
[2017-09-02] MEDS: SENNA 8.6 MG TAB PO SCH (07:48)
[2017-09-02] MEDS: METOCLOPRAMIDE HCL INJ 5 MG/ML 2 ML VIAL IV. SCH ×3 (07:48→23:53)
--- NOTE | 2017-09-02 11:44 | Hospitalist Progress Note ---
Hospitalist Progress Note Date of Service Sep 02, 2017. (Fay Lutz ., FAIZA) Subjective Pt evaluation today including: conversation w/ patient, physical exam, lab review, review of studies, review of inpatient medication list Voiding: no voiding problems Patient sitting in bedside chair. No SOB. Encouraged IS and ambulation. Eating and drinking OK. Hoping for [facility] at discharge. Patient denies any fever, chills, sweats, lightheadedness, dizziness, vision changes, CP, palpitations, edema, SOB, wheezing, cough, abdominal pain, nausea, vomiting, diarrhea, urinary symptoms, melena, numbness/tingling, weakness, muscle/joint pain, anxiety/depression, active bleeding, or new skin discoloration/changes. (Fay Lutz ., [facility]) Medications Current Inpatient Medications Medications (Trade) Dose Ordered Sig/Kaitlynn Route Start Time Stop Time Status Last Admin Dose Admin Magnesium Hydroxide (Milk Of Magnesia Susp) 30 ml Q6H PRN PO 08/18/17 17:30 09/17/17 17:29 08/27/17 13:02 30 ML Polyethylene (Miralax Powder Packet) 17 gm DAILY PRN PO 08/18/17 17:30 09/17/17 17:29 Ondansetron HCl (Zofran Inj) 4 mg Q6H PRN IV 08/18/17 17:30 09/17/17 17:29 08/22/17 11:11 4 MG Guaifenesin (Mucinex Contr Rel Tab) 600 mg Q12 PO 08/18/17 21:00 09/17/17 20:59 09/02/17 07:45 600 MG Hydroxyzine HCl (Vistaril Tab) 25 mg HS PRN PO 08/20/17 00:30 09/19/17 00:29 08/20/17 00:40 25 MG Bisacodyl (Dulcolax Tab) 10 mg DAILY PO 08/21/17 10:00 09/20/17 09:59 08/30/17 07:44 10 MG Polyethylene (Miralax Powder Packet) 17 gm DAILY PO 08/21/17 10:00 09/20/17 09:59 08/30/17 07:36 17 GM Bisacodyl (Dulcolax Supp) 10 mg DAILY PRN HI 08/21/17 10:00 09/20/17 09:59 Atorvastatin Calcium (Lipitor Tab) 80 mg DAILY PO 08/23/17 09:00 09/22/17 08:59 09/02/17 07:47 80 MG Furosemide (Lasix Tab) 40 mg QAM PO 08/23/17 09:00 09/22/17 08:59 Future hold 09/02/17 07:46 40 MG Multivitamins (Multivitamin Tab) 1 tab QAM PO 08/23/17 09:00 09/22/17 08:59 09/02/17 07:46 1 TAB Pantoprazole Sodium (Protonix Tab) 40 mg QAM PO 08/23/17 09:00 09/22/17 08:59 09/02/17 07:46 40 MG Senna (Senokot Tab) 8.6 mg QAM PO 08/23/17 09:00 09/22/17 08:59 08/31/17 08:05 8.6 MG Sertraline HCl (Zoloft Tab) 75 mg QAM PO 08/23/17 09:00 09/22/17 08:59 09/02/17 07:45 75 MG Bimatoprost (Lumigan 0.01%) 1 drops HS OP 08/22/17 21:00 09/21/17 20:59 09/01/17 20:31 1 DROPS Ferrous Sulfate (Feosol Tab) 325 mg BID PO 08/22/17 21:00 09/21/17 20:59 09/02/17 07:46 325 MG Oxycodone HCl (Roxicodone Immediate Rel Tab) 5 mg Q6H PRN PO 08/25/17 16:00 09/08/17 15:59 08/28/17 23:03 5 MG Metoclopramide HCl (Reglan Inj) 10 mg Q8@0000,0800,1600 IV. 08/25/17 16:00 09/24/17 15:59 09/02/17 07:48 10 MG Morphine Sulfate (MoRPHine SULFATE INJ) 2 mg Q1H PRN IV 08/25/17 16:00 09/08/17 15:59 08/29/17 08:09 2 MG Magnesium Oxide (Mag-Ox Tab) 400 mg QAM PO 08/27/17 09:00 09/26/17 08:59 09/02/17 07:46 400 MG Amiodarone HCl (Cordarone Tab) 200 mg BID PO 08/27/17 21:00 09/26/17 20:59 09/02/17 07:46 200 MG Acetaminophen (Tylenol Tab) 650 mg Q4H PRN PO 09/01/17 03:15 10/01/17 03:14 09/02/17 03:34 650 MG Apixaban (Eliquis Tab) 5 mg BID@0600,1800 PO 09/01/17 16:00 10/01/17 15:59 09/02/17 06:17 5 MG Metoprolol Succinate (Toprol Xl Tab) 12.5 mg BID PO 09/02/17 21:00 10/02/17 20:59 (Fay Lutz PA-C) Objective Vital Signs Date Time Temp Pulse Resp B/P (MAP) Pulse Ox O2 Delivery O2 Flow Rate FiO2 09/02/17 08:00 Room Air 09/02/17 07:26 36.6 72 18 131/67 (88) 94 Room Air 09/02/17 04:00 Room Air 09/02/17 03:30 36.8 79 17 111/54 (73) 93 Room Air 09/02/17 00:01 Room Air 09/01/17 23:30 36.5 75 16 143/65 (91) 95 Room Air 09/01/17 20:06 92 Room Air 09/01/17 19:29 36.3 75 20 116/67 (83) 94 Room Air 09/01/17 15:48 Room Air 09/01/17 15:39 36.5 77 18 126/68 (87) 92 Room Air 09/01/17 11:57 Room Air (Fay Lutz, GRETEL-C) Physical Exam General Appearance: no apparent distress Eyes: normal inspection, PERRL ENT: hearing grossly normal Neck: supple Respiratory/Chest: lungs clear, no respiratory distress, no accessory muscle use, + decreased breath sounds (bilateral bases, R>L ), + pertinent finding (+R- side chest tube ) Cardiovascular: regular rate, rhythm Abdomen: normal bowel sounds, non tender, soft Extremities: no pedal edema, no calf tenderness Neurologic/Psychiatric: alert, normal mood/affect, oriented x 3 Skin: normal color, warm/dry, no rash (Fay Lutz, FAIZA) Assessment and Plan This is a 71 yo M with PMHx of dilated cardiomyopathy with severe left ventricular dysfunction with EF equal to 45% in 08/2015, CAD s/p 3 DEZ to diagonal and distal RCA, and PDA in 03/2016, mild aortic stenosis hypertension, hyperlipidemia, elevated alkaline phosphatase, GERD, diverticulosis, depression , weight loss of 40 pounds in the past year, dysphagia, iron deficiency anemia, who presents after right thoracentesis performed by Dr. Lancaster on 08/18/17. Thoracic fluid was found to be purulent so he has been directly admitted to the hospital for IV antibiotics for empyema. R complex pleural effusion, ?empyema, w/ R Pleur-X- management as per Dr. Lancaster: - s/p thoracentesis on 08/18 and thoracoscopic extensive decortication of the right lung on 08/[address] Lancaster - O2 protocol, wean as tolerated - Encourage ambulation and IS - Completed 7 days of IV Zosyn - Pleural pathology w/out malignancy Chronic systolic CHF, dilated cardiomyopathy with severe LV Dysfunction- EF 45% , CAD s/p PCI, paroxysmal a.fib/flutter w/ RVR, SVT, HTN, HLD: - Monitor on tele- NSR overnight - Metoprolol 12.5 mg BID, Amiodarone 200 mg BID, Lasix 40 mg daily, Lipitor 80 mg daily, Mag-Ox supplement - IV Heparin gtt- converted to Eliquis 5 mg BID - Episode of SVT on 08/22- 6 mg + 12 mg Adenosine, then converted to a. flutter w / hypotension- cardioverted but unsuccessful- converted to NSR on 08/23 JAVIER- RESOLVED: Lotensin held- JAVIER resolved, BPs controlled- continue to hold and monitor Hypotension- RESOLVED: Managed in ICU as per energy crop farmer- treated w/ Levophed, IVF, and held hypotensive agents Chronic iron deficient anemia- STABLE: - Follow PRP - Continue iron supplement BID Hypophosphatemia: Replaced w/ PO supplement- recheck phosphorus level tomorrow Dysphagia, unintentional weight loss: - Speech therapy consulted- moist, regular diet; aspiration precautions - GI consulted- s/p EGD on 08/20- no new recommendations, 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 Discussed with GRETEL Ernandez and agree with findings and plan as documented in the note. Any exceptions or clarifications are listed here: Pt feeling better than on admission, still draining from CT. Moving bowels. Was in and out of Afib/flutter all day, currently in NSR. Vitals reviewed, tele reviewed NAD, thin RRR, 3/6 NAYANA at [facility] Lungs with decreased BS at bases bilat and crackles middle lung hartmann ABd +BS soft NT ND Ext no edema 71 yo male with microcytic anemia, unintentional weight loss, chronic combined systolic and diastolic CHF, CAD, HTN, mild-mod aortic stenosis and mild-mod MR, hyperlipidemia, elevated alkaline phosphatase, GERD, diverticulosis, depression , and dysphagia, here with right sided complex loculated pleural effusion. -completed course of abx, no growth in pleural fluid, neg for cytology -s/p thoracoscopy and decortication, chest tube remains in place-management by Thoracic Surgery appreciated -Anemia-microcytic, no Hemoccult in labs and no recent Fe studies-appreciate GI performing EGD, and had colonoscopy in 2017 with one polyp--> check Fe studies, Hemoccult stool -now that JAVIER resolved, BPs improved, consider restarting ACEI tomorrow -given in/out of A-fib/flutter today, need to check lytes now and replace as needed Documented By: Carmel Cantu (Carmel Cantu MD)
[2017-09-02 11:47] VITALS: BP 123/57; PULSE 73; TEMP 36.8; O2SAT 94
[2017-09-02] MEDS ORDERED: METOPROLOL SUCC 25MG EXT REL TAB PO ONE (12:45)
--- NOTE | 2017-09-02 14:27 | SURGERY PROGRESS NOTE ---
DATE: 09/02/2017 Mr. Rizo was seen today on 09/02/2017. In 72 hours he has drained about 700 mL of fluid. This is serous in nature. He denies pain really. His chest tube is still in place. He has no air leak, and continues to drain. The amount appears to be decreasing. His is on room air now. I thought his x-ray looked pretty good. He still has a bit of an incomplete expansion of the basilar lateral aspect of the right lower lobe, but I think he is improving. We are going to hopefully get his chest tube out in the next few days. I have to say I am happy with his appearance. My hope is that we can get him ready to get out of the hospital in the near future. Unfortunately, it appears to me today that he is back in atrial fibrillation. He is being followed by the senior warehouse clerk.
[2017-09-02 15:06] VITALS: BP 107/64; PULSE 95; TEMP 36.6; O2SAT 97
[2017-09-02 19:11] VITALS: BP 111/63; PULSE 67; TEMP 36.4; O2SAT 97
[2017-09-02] MEDS: BIMATOPROST 0.01% OP SOLN 2.5 ML BTL OP SCH (19:34)
[2017-09-02] MEDS: METOPROLOL SUCC 25MG EXT REL TAB PO SCH (19:37)
[2017-09-02 20:38] LABS: CALCIUM 8.4 mg/dl (8.5-10.1); CREATININE 1.17 mg/dl (0.60-1.40); POTASSIUM 3.9 mmol/L (3.5-5.1)
[2017-09-02] MEDS ORDERED: NURSING VERBAL MED ORDER ONE (20:45)
[2017-09-02] MEDS ORDERED: MAGNESIUM SULFATE 1GM / D5W 1 GM in PREMIXED IN D5W 100 ML IV STA (21:35)
[2017-09-02] MEDS ORDERED: POTASSIUM CHLORIDE 10 MEQ TABCR PO STA (21:36)
[2017-09-02 23:50] VITALS: BP 126/67; PULSE 65; TEMP 36.6; O2SAT 95
[2017-09-03 04:53] VITALS: BP 143/67; PULSE 61; TEMP 36.6; O2SAT 94
[2017-09-03] MEDS: APIXABAN 2.5 MG TAB PO SCH ×2 (06:25→18:14)
[2017-09-03 06:49] LABS: HEMATOCRIT 29.8 % (42-52); HEMOGLOBIN 8.8 g/dL (14.0-18.0); MEAN CELL VOLUME 79.5 fL (80-100); MEAN CORPUSCULAR HEMOGLOBIN 23.5 pg (25-34); MEAN CORPUSCULAR HGB CONC 29.5 g/dl (32-36); MEAN PLATELET VOLUME 9.3 fL (7.4-10.4); PLATELET COUNT 390 K/uL (130-400); RED CELL DISTRIBUTION WIDTH CV 20.8 % (11.5-14.5); WHITE BLOOD COUNT 7.24 K/uL (4.8-10.8)
[2017-09-03 07:21] VITALS: BP 130/70; PULSE 61; TEMP 36.8; O2SAT 99
[2017-09-03 07:22] LABS: CALCIUM 8.5 mg/dl (8.5-10.1); CREATININE 0.9 mg/dl (0.60-1.40); POTASSIUM 3.9 mmol/L (3.5-5.1)
[2017-09-03 07:28] LABS: PHOSPHORUS 3.6 mg/dl (2.5-4.9)
[2017-09-03] MEDS: MAGNESIUM OXIDE 400 MG TAB PO SCH (07:35)
[2017-09-03] MEDS: PANTOprazole SOD 40 MG TAB PO SCH (07:36)
[2017-09-03] MEDS: FUROSEMIDE 40 MG TAB PO SCH (07:36)
[2017-09-03] MEDS: FERROUS SULFATE 325 MG TAB PO SCH ×2 (07:36→19:55)
[2017-09-03] MEDS: GUAIFENESIN 600 MG TABCR PO SCH ×2 (07:36→19:54)
[2017-09-03] MEDS: ATORVASTATIN 40 MG TAB PO SCH (07:37)
[2017-09-03] MEDS: SERTRALINE HCL 50 MG TAB PO SCH (07:37)
[2017-09-03] MEDS: METOPROLOL SUCC 25MG EXT REL TAB PO SCH (07:37)
[2017-09-03] MEDS: MULTIVITAMIN TAB PO SCH (07:38)
[2017-09-03] MEDS: SENNA 8.6 MG TAB PO SCH (07:38)
[2017-09-03] MEDS: AMIODARONE 200 MG TAB PO SCH ×2 (07:38→19:54)
[2017-09-03] MEDS: POLYETHYLENE (MIRALAX) 17 GM PACK PO SCH (07:39)
[2017-09-03] MEDS: METOCLOPRAMIDE HCL INJ 5 MG/ML 2 ML VIAL IV. SCH ×3 (07:39→23:53)
[2017-09-03] MEDS: BISACODYL 5 MG TABEC PO SCH (07:40)
[2017-09-03] MEDS: ACETAMINOPHEN 325 MG TAB PO PRN ×3 (11:44→23:54)
--- NOTE | 2017-09-03 11:46 | Cardiology Follow-Up ---
Subjective Subjective Date of Service: Sep 03, 2017. Pt evaluation today including: conversation w/ patient, physical exam, chart review, lab review, review of studies, review of inpatient medication list Additional Details: Feeling well. No chest pain. No other new complaints. Tele reviewed -- converted back to sinus rhythm from rate controlled atrial flutter yesterday Problem List Medical Problems: (1) Alkaline phosphatase elevation Status: Acute (2) Anemia Status: Acute (3) Chest pain Status: Acute (4) Gastritis Status: Acute (5) Pleural effusion, bilateral Status: Acute Review of Systems Constitutional: + weakness, + fatigue, No fever, No chills, No sweats, No weight loss, No problem reported Eyes: No worsening of vision, No eye pain, No redness, No discharge, No diplopia ENT: No hearing loss, No unusual epistaxis, No nasal symptoms, No sore throat, No tinnitus, No dental problems, No trouble swallowing Respiratory: + cough, No sputum, No wheezing, No dyspnea on exertion, No dyspnea at rest, No hemoptysis Cardiac: No chest pain, No orthopnea, No PND, No edema, No claudication, No palpitations Abdomen: No pain, No nausea, No vomiting, No diarrhea, No constipation Musculoskeletal: No joint pain, No muscle pain, No swelling, No calf pain Male : No dysuria, No urinary frequency, No incontinence, No nocturia more than once/night, No slowing stream, No hematuria Neurologic: No memory loss, No paralysis, No weakness, No numbness/tingling, No vertigo, No balance problems Psychiatric: No depression symptoms, No anhedonism, No anxiety, No insomnia, No substance abuse Heme: No abnormal bleeding/bruising, No clotting problems, No swollen lymph nodes, No night sweats Endo: No fatigue, No excessive thirst, No excessive urination Skin: No rash, No itch, No new/changing skin lesions, No color change, No bleeding Objective Vital Signs Last Vital Signs Documentation Date Time Temp Pulse Resp B/P (MAP) Pulse Ox O2 Delivery O2 Flow Rate FiO2 09/03/17 08:00 Room Air 09/03/17 07:21 36.8 61 20 130/70 (90) 99 2.0 Physical Exam: General Appearance: no apparent distress ENT: hearing grossly normal Neck: supple Respiratory/Chest: lungs clear, no respiratory distress, + decreased breath sounds (bilateral bases, R>L ), + pertinent finding (+R-side chest tube ) Cardiovascular: regular rate, rhythm Abdomen: normal bowel sounds, non tender, soft Extremities: no pedal edema, no calf tenderness Neurologic/Psychiatric: alert, normal mood/affect, oriented x 3 Skin: normal color, warm/dry, no rash Lymphatic: no adenopathy Assessment and Plan 1. Complicated Pleural effusion/Hemothorax now POD9 s/p thoracoscopy with decortication 2. Paroxysmal Atrial flutter with RVR -- back in NSR on amio 3. Intermittent junctional bradycardia -- brief episode, has not recurred 4. Chronic systolic heart failure/ICM EF 35-40% . 5. Multivessel CAD 6. Moderate to severe 7. Dysphagia/Unintentional weight loss 8. Anemia Afib/flutter yesterday well rate controlled --> converted to NSR yesterday afternoon. Well compensated on current diuretics. --continue lasix 40mg daily --continue current amiodarone 200 mg BID --> transition to daily as an outpatient --hemoglobin stable on apixaban. --continue low dose metoprolol. If BP elevated would add back JACQUE --continue current statin Will continue to follow. Continued [facility] stay due to: multiple IV medications needed, other (still requires chest tube) Discharge planning: home Medications: Current Inpatient Medications Medications (Trade) Dose Ordered Sig/Kaitlynn Route Start Time Stop Time Status Last Admin Dose Admin Magnesium Hydroxide (Milk Of Magnesia Susp) 30 ml Q6H PRN PO 08/18/17 17:30 09/17/17 17:29 08/27/17 13:02 30 ML Polyethylene (Miralax Powder Packet) 17 gm DAILY PRN PO 08/18/17 17:30 09/17/17 17:29 Ondansetron HCl (Zofran Inj) 4 mg Q6H PRN IV 08/18/17 17:30 09/17/17 17:29 08/22/17 11:11 4 MG Guaifenesin (Mucinex Contr Rel Tab) 600 mg Q12 PO 08/18/17 21:00 09/17/17 20:59 09/03/17 07:36 600 MG Hydroxyzine HCl (Vistaril Tab) 25 mg HS PRN PO 08/20/17 00:30 09/19/17 00:29 08/20/17 00:40 25 MG Bisacodyl (Dulcolax Tab) 10 mg DAILY PO 08/21/17 10:00 09/20/17 09:59 08/30/17 07:44 10 MG Polyethylene (Miralax Powder Packet) 17 gm DAILY PO 08/21/17 10:00 09/20/17 09:59 09/03/17 07:39 17 GM Bisacodyl (Dulcolax Supp) 10 mg DAILY PRN VA 08/21/17 10:00 09/20/17 09:59 Atorvastatin Calcium (Lipitor Tab) 80 mg DAILY PO 08/23/17 09:00 09/22/17 08:59 09/03/17 07:37 80 MG Furosemide (Lasix Tab) 40 mg QAM PO 08/23/17 09:00 09/22/17 08:59 Future hold 09/03/17 07:36 40 MG Multivitamins (Multivitamin Tab) 1 tab QAM PO 08/23/17 09:00 09/22/17 08:59 09/03/17 07:38 1 TAB Pantoprazole Sodium (Protonix Tab) 40 mg QAM PO 08/23/17 09:00 09/22/17 08:59 09/03/17 07:36 40 MG Senna (Senokot Tab) 8.6 mg QAM PO 08/23/17 09:00 09/22/17 08:59 09/03/17 07:38 8.6 MG Sertraline HCl (Zoloft Tab) 75 mg QAM PO 08/23/17 09:00 09/22/17 08:59 09/03/17 07:37 75 MG Bimatoprost (Lumigan 0.01%) 1 drops HS OP 08/22/17 21:00 09/21/17 20:59 09/02/17 19:34 1 DROPS Ferrous Sulfate (Feosol Tab) 325 mg BID PO 08/22/17 21:00 09/21/17 20:59 09/03/17 07:36 325 MG Oxycodone HCl (Roxicodone Immediate Rel Tab) 5 mg Q6H PRN PO 08/25/17 16:00 09/08/17 15:59 08/28/17 23:03 5 MG Metoclopramide HCl (Reglan Inj) 10 mg Q8@0000,0800,1600 IV. 08/25/17 16:00 09/24/17 15:59 09/03/17 07:39 10 MG Morphine Sulfate (MoRPHine SULFATE INJ) 2 mg Q1H PRN IV 08/25/17 16:00 09/08/17 15:59 08/29/17 08:09 2 MG Magnesium Oxide (Mag-Ox Tab) 400 mg QAM PO 08/27/17 09:00 09/26/17 08:59 09/03/17 07:35 400 MG Amiodarone HCl (Cordarone Tab) 200 mg BID PO 08/27/17 21:00 09/26/17 20:59 09/03/17 07:38 200 MG Acetaminophen (Tylenol Tab) 650 mg Q4H PRN PO 09/01/17 03:15 10/01/17 03:14 09/02/17 21:56 650 MG Apixaban (Eliquis Tab) 5 mg BID@0600,1800 PO 09/01/17 16:00 10/01/17 15:59 09/03/17 06:25 5 MG Metoprolol Succinate (Toprol Xl Tab) 12.5 mg BID PO 09/02/17 21:00 10/02/17 20:59 09/03/17 07:37 12.5 MG Lab Results: 09/03/17 06:24 09/03/17 06:24 Test 09/03/17 06:24 Red Blood Count 3.75 M/uL (4.7-6.1) Mean Corpuscular Volume 79.5 fL (80-100) Mean Corpuscular Hemoglobin 23.5 pg (25-34) Mean Corpuscular Hemoglobin Concent 29.5 g/dl (32-36) RDW Standard Deviation 60.0 fL (36.4-46.3) RDW Coefficient of Variation 20.8 % (11.5-14.5) Mean Platelet Volume 9.3 fL (7.4-10.4) Anion Gap 3.0 mmol/L (3-11) Est Creatinine Clear Calc Drug Dose 66.3 ml/min Estimated GFR () 97.9 Estimated GFR (Non- 84.4 BUN/Creatinine Ratio 13.8 (10-20) Calcium Level 8.5 mg/dl (8.5-10.1) Phosphorus Level 3.6 mg/dl (2.5-4.9) Magnesium Level 2.4 mg/dl (1.8-2.4) Iron Level 18 mcg/dl (35-175) Total Iron Binding Capacity 254 mcg/dl (250-450) Transferrin 198 mg/dl (200-360) Transferrin % Saturation 6 % (20-50) Ferritin 63.0 ng/ml (8.0-388.0)
--- NOTE | 2017-09-03 12:23 | Hospitalist Progress Note ---
Hospitalist Progress Note Date of Service Sep 03, 2017. (Fay Lutz ., PA-C) Subjective Pt evaluation today including: conversation w/ patient, physical exam, lab review, review of studies, review of inpatient medication list Voiding: no voiding problems Patient sitting in bedside chair. Eating and drinking OK. No SOB. Chest tube remains in place. Episode of a.fib yesterday afternoon w/ rates controlled- converted by to NSR at 1516 on 09/02 Patient denies any fever, chills, sweats, lightheadedness, dizziness, vision changes, CP, palpitations, edema, SOB, wheezing, cough, abdominal pain, nausea, vomiting, diarrhea, urinary symptoms, melena, numbness/tingling, weakness, muscle/joint pain, anxiety/depression, active bleeding, or new skin discoloration/changes. (Fay Lutz ., PA-C) Medications Current Inpatient Medications Medications (Trade) Dose Ordered Sig/Kaitlynn Route Start Time Stop Time Status Last Admin Dose Admin Magnesium Hydroxide (Milk Of Magnesia Susp) 30 ml Q6H PRN PO 08/18/17 17:30 09/17/17 17:29 08/27/17 13:02 30 ML Polyethylene (Miralax Powder Packet) 17 gm DAILY PRN PO 08/18/17 17:30 09/17/17 17:29 Ondansetron HCl (Zofran Inj) 4 mg Q6H PRN IV 08/18/17 17:30 09/17/17 17:29 08/22/17 11:11 4 MG Guaifenesin (Mucinex Contr Rel Tab) 600 mg Q12 PO 08/18/17 21:00 09/17/17 20:59 09/03/17 07:36 600 MG Hydroxyzine HCl (Vistaril Tab) 25 mg HS PRN PO 08/20/17 00:30 09/19/17 00:29 08/20/17 00:40 25 MG Bisacodyl (Dulcolax Tab) 10 mg DAILY PO 08/21/17 10:00 09/20/17 09:59 08/30/17 07:44 10 MG Polyethylene (Miralax Powder Packet) 17 gm DAILY PO 08/21/17 10:00 09/20/17 09:59 09/03/17 07:39 17 GM Bisacodyl (Dulcolax Supp) 10 mg DAILY PRN PA 08/21/17 10:00 09/20/17 09:59 Atorvastatin Calcium (Lipitor Tab) 80 mg DAILY PO 08/23/17 09:00 09/22/17 08:59 09/03/17 07:37 80 MG Furosemide (Lasix Tab) 40 mg QAM PO 08/23/17 09:00 09/22/17 08:59 Future hold 09/03/17 07:36 40 MG Multivitamins (Multivitamin Tab) 1 tab QAM PO 08/23/17 09:00 09/22/17 08:59 09/03/17 07:38 1 TAB Pantoprazole Sodium (Protonix Tab) 40 mg QAM PO 08/23/17 09:00 09/22/17 08:59 09/03/17 07:36 40 MG Senna (Senokot Tab) 8.6 mg QAM PO 08/23/17 09:00 09/22/17 08:59 09/03/17 07:38 8.6 MG Sertraline HCl (Zoloft Tab) 75 mg QAM PO 08/23/17 09:00 09/22/17 08:59 09/03/17 07:37 75 MG Bimatoprost (Lumigan 0.01%) 1 drops HS OP 08/22/17 21:00 09/21/17 20:59 09/02/17 19:34 1 DROPS Ferrous Sulfate (Feosol Tab) 325 mg BID PO 08/22/17 21:00 09/21/17 20:59 09/03/17 07:36 325 MG Oxycodone HCl (Roxicodone Immediate Rel Tab) 5 mg Q6H PRN PO 08/25/17 16:00 09/08/17 15:59 08/28/17 23:03 5 MG Metoclopramide HCl (Reglan Inj) 10 mg Q8@0000,0800,1600 IV. 08/25/17 16:00 09/24/17 15:59 09/03/17 07:39 10 MG Morphine Sulfate (MoRPHine SULFATE INJ) 2 mg Q1H PRN IV 08/25/17 16:00 09/08/17 15:59 08/29/17 08:09 2 MG Magnesium Oxide (Mag-Ox Tab) 400 mg QAM PO 08/27/17 09:00 09/26/17 08:59 09/03/17 07:35 400 MG Amiodarone HCl (Cordarone Tab) 200 mg BID PO 08/27/17 21:00 09/26/17 20:59 09/03/17 07:38 200 MG Acetaminophen (Tylenol Tab) 650 mg Q4H PRN PO 09/01/17 03:15 10/01/17 03:14 09/03/17 11:44 650 MG Apixaban (Eliquis Tab) 5 mg BID@0600,1800 PO 09/01/17 16:00 10/01/17 15:59 09/03/17 06:25 5 MG Metoprolol Succinate (Toprol Xl Tab) 12.5 mg BID PO 09/02/17 21:00 10/02/17 20:59 09/03/17 07:37 12.5 MG (Fay Lutz, PA-C) Objective Vital Signs Date Time Temp Pulse Resp B/P (MAP) Pulse Ox O2 Delivery O2 Flow Rate FiO2 09/03/17 08:00 Room Air 09/03/17 07:21 36.8 61 20 130/70 (90) 99 Nasal Cannula 2.0 09/03/17 04:53 36.6 61 20 143/67 (92) 94 Room Air 09/03/17 04:00 Room Air 09/03/17 00:00 Room Air 09/02/17 23:50 36.6 65 20 126/67 (86) 95 Room Air 09/02/17 20:00 Room Air 09/02/17 19:11 36.4 67 23 111/63 (79) 97 Room Air 09/02/17 16:00 Room Air 09/02/17 15:06 36.6 95 21 107/64 (78) 97 Room Air (Fay Lutz ., PA-C) Physical Exam General Appearance: no apparent distress Eyes: normal inspection, PERRL ENT: hearing grossly normal Neck: supple Respiratory/Chest: no respiratory distress, no accessory muscle use, + decreased breath sounds (bilateral lung bases, R>L), + crackles (R lung base ), + pertinent finding (+R chest tube ) Cardiovascular: regular rate, rhythm, + systolic murmur Abdomen: normal bowel sounds, non tender, soft Extremities: no pedal edema, no calf tenderness Neurologic/Psychiatric: alert, normal mood/affect, oriented x 3 Skin: normal color, warm/dry, no rash (Fay Lutz ., MIN[facility]) Laboratory Results Last 24 Hours Test 09/02/17 20:08 09/03/17 06:24 Sodium Level 132 mmol/L 131 mmol/L Potassium Level 3.9 mmol/L 3.9 mmol/L Chloride Level 95 mmol/L 96 mmol/L Carbon Dioxide Level 33 mmol/L 32 mmol/L Anion Gap 4.0 mmol/L 3.0 mmol/L Blood Urea Nitrogen 12 mg/dl 12 mg/dl Creatinine 1.17 mg/dl 0.90 mg/dl Est Creatinine Clear Calc Drug Dose 55.1 ml/min 66.3 ml/min Estimated GFR () 71.3 97.9 Estimated GFR (Non- 61.5 84.4 BUN/Creatinine Ratio 9.9 13.8 Random Glucose 107 mg/dl 104 mg/dl Calcium Level 8.4 mg/dl 8.5 mg/dl Magnesium Level 1.9 mg/dl 2.4 mg/dl White Blood Count 7.24 K/uL Red Blood Count 3.75 M/uL Hemoglobin 8.8 g/dL Hematocrit 29.8 % Mean Corpuscular Volume 79.5 fL Mean Corpuscular Hemoglobin 23.5 pg Mean Corpuscular Hemoglobin Concent 29.5 g/dl RDW Standard Deviation 60.0 fL RDW Coefficient of Variation 20.8 % Platelet Count 390 K/uL Mean Platelet Volume 9.3 fL Phosphorus Level 3.6 mg/dl Iron Level 18 mcg/dl Total Iron Binding Capacity 254 mcg/dl Transferrin 198 mg/dl Transferrin % Saturation 6 % Ferritin 63.0 ng/ml (Fay Lutz ., PA-C) Assessment and Plan This is a 71 yo M with PMHx of dilated cardiomyopathy with severe left ventricular dysfunction with EF equal to 45% in 08/2015, CAD s/p 3 DEZ to diagonal and distal RCA, and PDA in 03/2016, mild aortic stenosis hypertension, hyperlipidemia, elevated alkaline phosphatase, GERD, diverticulosis, depression , weight loss of 40 pounds in the past year, dysphagia, iron deficiency anemia, who presents after right thoracentesis performed by Dr. Lancaster on 08/18/17. Thoracic fluid was found to be purulent so he has been directly admitted to the hospital for IV antibiotics for empyema. R complex pleural effusion, ?empyema, w/ R Pleur-X- management as per Dr. Lancaster: - s/p thoracentesis on 08/18 and thoracoscopic extensive decortication of the right lung on 08/[address] Lancaster - O2 protocol, wean as tolerated - Encourage ambulation and IS - Completed 7 days of IV Zosyn - Pleural pathology w/out malignancy Chronic systolic CHF, dilated cardiomyopathy with severe LV Dysfunction- EF 45% , CAD s/p PCI, paroxysmal a.fib/flutter w/ RVR, SVT, HTN, HLD: - Monitor on tele- NSR overnight - Metoprolol 12.5 mg BID, Amiodarone 200 mg BID, Lasix 40 mg daily, Lipitor 80 mg daily, Mag-Ox supplement - Resume Lotensin 20 mg daily - IV Heparin gtt- converted to Eliquis 5 mg BID - Episode of SVT on 08/22- 6 mg + 12 mg Adenosine, then converted to a. flutter w / hypotension- cardioverted but unsuccessful- converted to NSR on 08/23 JAVIER- RESOLVED: Held nephrotoxic agents and renally dosed medications as appropriate Hypotension- RESOLVED: Managed in ICU as per jewel supervisor- treated w/ Levophed, IVF, and held hypotensive agents Chronic iron deficient anemia- STABLE: - Follow PRP - Continue iron supplement BID Hypophosphatemia- RESOLVED: Replaced w/ PO supplement- recheck phosphorus level tomorrow Dysphagia, unintentional weight loss: - Speech therapy consulted- moist, regular diet; aspiration precautions - GI consulted- s/p EGD on 08/20- no new recommendations, 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 Discussed with GRETEL Lutz and agree with findings and plan as documented in the note. Any exceptions or clarifications are listed here: Pt has no complaints. Ambulated the halls today and felt some GARBER with that. No CP. CT has less drainage today. Remains in NSR to SB today, some hypotension this afternoon. Discussed case with CArdiology Vitals reviewed, tele reviewed-bradycardia into the 30s-40s at times NAD, thin RRR, 3/6 NAYANA at RUSB Lungs with decreased BS at bases bilat and crackles middle lung hartmann, chest tube in place with dressing c/d/i ABd +BS soft NT ND Ext no edema 71 yo male with microcytic anemia, unintentional weight loss, chronic combined systolic and diastolic CHF, CAD, HTN, mild-mod aortic stenosis and mild-mod MR, hyperlipidemia, elevated alkaline phosphatase, GERD, diverticulosis, depression , and dysphagia, here with right sided complex loculated pleural effusion. Also with abnormal appearing stomach on CT with EGD findings of chronic duodenitis Pleural effusion/Loculated -less drainage in CT, CT Surgery hopeful to remove CT tomorrow -completed course of abx, no growth in pleural fluid, neg for cytology -s/p thoracoscopy and decortication, chest tube remains in place-management by Thoracic Surgery appreciated Anemia-microcytic, no Hemoccult collected yet--> Fe studies still show significant Fe-deficiency despite being on po FeSO4 for some time now- appreciate GI performing EGD, and had colonoscopy in 2017 with one polyp--> -if Hemoccult positive--> will d/w GI about Capsule Endoscopy as outpt, especially in setting of anticoagulation -consider IV iron Hypotension-will now HOLD/Stop Toprol, will NOT yet start ACEI, follow BPs -remains in NSR to SB today, was in/out of Aflutter yesterday--> continue to keep K+>4.0 and Mg++>2.0 CAD s/p DEZ 03/2016--> completed DAPT by stopping Plavix 03/2017 with Cardio, is to be on ASA 81mg but was held here for surgery and chest tube. Is now on Eliquis, Hgb low but stable to slowly increasing, no ovious bleeding -ok to resume ASA 81mg in AM Gallbladder-possible fundal adenomyosis on GB on US--> recommend repeat GB US in 3 months Documented By: Carmel Cantu (Carmel Cantu MD)
[2017-09-03 12:45] VITALS: BP 92/55; PULSE 55; TEMP 36.7; O2SAT 95
--- NOTE | 2017-09-03 14:19 | SURGERY PROGRESS NOTE ---
DATE: 09/03/2017 Mr. Rizo was seen today on 09/03/2017. He looks very good. He is back in a sinus rhythm. I think we are going to go ahead and try to remove his chest tube tomorrow. He only put out 100 mL since yesterday. He does have a bit of a trapped lung and we may end up having it tapped this later, but I think that at this point he has done very well, I think it will be good to get this tube out, so we can get him up moving more.
[2017-09-03 15:40] VITALS: BP 89/52; PULSE 51; TEMP 36.3; O2SAT 96
[2017-09-03] MEDS ORDERED: POTASSIUM CHLORIDE 20 MEQ TABCR PO STA (17:25)
[2017-09-03] MEDS ORDERED: ASPEC81 PO (17:59)
[2017-09-03 19:11] VITALS: BP 98/52; PULSE 52; TEMP 36.3; O2SAT 99
[2017-09-03] MEDS: BIMATOPROST 0.01% OP SOLN 2.5 ML BTL OP SCH (19:54)
[2017-09-03 23:50] VITALS: BP 111/77; PULSE 55; TEMP 37; O2SAT 95
[2017-09-03] MEDS: hydrOXYzine HCL 25 MG TAB PO PRN (23:53)
[2017-09-04] VITALS (8 sets, daily range): BP systolic 112–118; BP diastolic 56–66; PULSE 50–57; TEMP 36.1–36.6; O2SAT 93–100
[2017-09-04] MEDS: ACETAMINOPHEN 325 MG TAB PO PRN (04:12)
[2017-09-04] MEDS: APIXABAN 2.5 MG TAB PO SCH ×2 (05:25→16:57)
[2017-09-04 07:08] LABS: BASO % 0.6 %; BASO ABS # 0.04 K/uL (0-0.2); EOS % 6.2 %; HEMATOCRIT 26.7 % (42-52); HEMOGLOBIN 8.2 g/dL (14.0-18.0); IG# 0.02 K/uL (0.00-0.02); LYMPH % 15.9 %; LYMPH ABS # 1.03 K/uL (1.2-3.4); MEAN CELL VOLUME 80.2 fL (80-100); MEAN CORPUSCULAR HEMOGLOBIN 24.6 pg (25-34); MEAN CORPUSCULAR HGB CONC 30.7 g/dl (32-36); MEAN PLATELET VOLUME 9.4 fL (7.4-10.4); MONO % 12.4 %; NEUT % 64.6 %; NEUT ABS # 4.18 K/uL (1.4-6.5); PLATELET COUNT 329 K/uL (130-400); RED CELL DISTRIBUTION WIDTH CV 20.7 % (11.5-14.5); RED CELL DISTRIBUTION WIDTH SD 60.1 fL (36.4-46.3); WHITE BLOOD COUNT 6.47 K/uL (4.8-10.8)
[2017-09-04 07:45] LABS: ALBUMIN 2.1 gm/dl (3.4-5.0); CALCIUM 8.3 mg/dl (8.5-10.1); CREATININE 0.9 mg/dl (0.60-1.40); POTASSIUM 4.1 mmol/L (3.5-5.1)
[2017-09-04 07:48] LABS: TOTAL PROTEIN 5.8 gm/dl (6.4-8.2)
[2017-09-04] MEDS: METOCLOPRAMIDE HCL INJ 5 MG/ML 2 ML VIAL IV. SCH ×3 (07:49→23:48)
[2017-09-04] MEDS: PANTOprazole SOD 40 MG TAB PO SCH (07:49)
[2017-09-04] MEDS: ASPIRIN 81 MG ECTAB PO SCH (07:49)
[2017-09-04] MEDS: BISACODYL 5 MG TABEC PO SCH (07:49)
[2017-09-04] MEDS: AMIODARONE 200 MG TAB PO SCH ×2 (07:50→20:17)
[2017-09-04] MEDS: SERTRALINE HCL 50 MG TAB PO SCH (07:50)
[2017-09-04] MEDS: FERROUS SULFATE 325 MG TAB PO SCH ×2 (07:50→20:17)
[2017-09-04] MEDS: MULTIVITAMIN TAB PO SCH (07:50)
[2017-09-04] MEDS: MAGNESIUM OXIDE 400 MG TAB PO SCH (07:51)
[2017-09-04] MEDS: GUAIFENESIN 600 MG TABCR PO SCH ×2 (07:51→20:18)
[2017-09-04] MEDS: POLYETHYLENE (MIRALAX) 17 GM PACK PO SCH (07:51)
[2017-09-04] MEDS: ATORVASTATIN 40 MG TAB PO SCH (07:51)
[2017-09-04] MEDS: SENNA 8.6 MG TAB PO SCH (07:51)
[2017-09-04] MEDS: FUROSEMIDE 40 MG TAB PO SCH (07:51)
[2017-09-04] MEDS: OXYCODONE HCL IR 5 MG TAB (IMMEDIATE RELEASE) PO PRN ×3 (08:02→20:19)
[2017-09-04] MEDS ORDERED: IRON SUCROSE INJ 100 MG in SODIUM CHLORIDE 0.9% 100ML 100 ML IV ONE ×2 (08:45→10:45)
[2017-09-04] MEDS ORDERED: ENALAPRIL MALEATE 10 MG TAB PO SCH (09:00)
[2017-09-04] MEDS ORDERED: METOPROLOL SUCC 25MG EXT REL TAB PO SCH (09:00)
--- NOTE | 2017-09-04 10:45 | DIAGNOSTIC IMAGING REPORT ---
CHEST ONE VIEW PORTABLE CLINICAL HISTORY: chest tube check tube position COMPARISON STUDY: 08/31/2017 FINDINGS: Stable right basilar chest tube position. Slight increase in right basilar pneumothorax with aspirin pleural separation 11 mm. Study is otherwise similar. Subtle improvement in aeration right upper lung and left base. IMPRESSION: 11 millimeter of separation of a right basilar pneumothorax. This is slightly increased from the prior study. . Slight improvement in aeration of both hemithoraces. The above report was generated using voice recognition software. It may contain grammatical, syntax or spelling errors. Electronically signed by: John Linder M.D. 09/04/2017 10:43 AM Dictated Date/Time: 09/04/2017 10:35 AM
--- NOTE | 2017-09-04 11:16 | Cardiology Follow-Up ---
Subjective Subjective Date of Service: Sep 04, 2017. Pt evaluation today including: conversation w/ patient, physical exam, chart review, lab review, review of studies, conversation w/ health analytics consultant, review of inpatient medication list Additional Details: Feeling well. No chest pain or palpitations. Up walking halls yesterday. CT out 140 Tele - sinus monica, no other events. Problem List Medical Problems: (1) Alkaline phosphatase elevation Status: Acute (2) Anemia Status: Acute (3) Chest pain Status: Acute (4) Gastritis Status: Acute (5) Pleural effusion, bilateral Status: Acute Review of Systems Constitutional: + weakness, + fatigue Eyes: No worsening of vision Respiratory: + cough, + shortness of breath Cardiac: No chest pain, No palpitations Abdomen: No pain Neurologic: No memory loss Psychiatric: No depression symptoms Heme: No abnormal bleeding/bruising Endo: + fatigue Skin: No rash Objective Vital Signs Last Vital Signs Documentation Date Time Temp Pulse Resp B/P (MAP) Pulse Ox O2 Delivery O2 Flow Rate FiO2 09/04/17 08:00 Nasal Cannula 2.0 09/04/17 07:21 36.1 52 20 118/56 (76) 100 Physical Exam: General Appearance: no apparent distress ENT: hearing grossly normal Neck: supple Respiratory/Chest: no respiratory distress, no accessory muscle use, + decreased breath sounds (decreased BS at right base), + pertinent finding (CT remains in place with scant serosang fluid ) Cardiovascular: regular rate, rhythm, + bradycardia, + systolic murmur Abdomen: normal bowel sounds, non tender, soft Extremities: no pedal edema, no calf tenderness Neurologic/Psychiatric: alert, normal mood/affect, oriented x 3 Skin: normal color, warm/dry, no rash Lymphatic: no adenopathy Assessment and Plan 1. Complicated Pleural effusion/Hemothorax now POD10 s/p thoracoscopy with decortication 2. Paroxysmal Atrial flutter with RVR -- in NSR on amio 3. Intermittent junctional bradycardia -- brief episode, has not recurred 4. Chronic systolic heart failure/ICM EF 35-40% . 5. Multivessel CAD 6. Moderate to severe 7. Dysphagia/Unintentional weight loss 8. Anemia Remains sinus rhythm, bradycardic but asymptomatic. Well compensated on current diuretics. CT to remain another day per Dr. Lancaster --continue lasix 40mg daily --continue current amiodarone 200 mg BID --> transition to daily as an outpatient --hemoglobin stable on apixaban. Aspirin restarted --resume metoprolol when BP allows. Ok to restart with waking HR in 50s. JACQUE on hold --continue current statin Will continue to follow. Continued [facility] stay due to: multiple IV medications needed, other (still requires chest tube) Discharge planning: home Medications: Current Inpatient Medications Medications (Trade) Dose Ordered Sig/Kaitlynn Route Start Time Stop Time Status Last Admin Dose Admin Magnesium Hydroxide (Milk Of Magnesia Susp) 30 ml Q6H PRN PO 08/18/17 17:30 09/17/17 17:29 08/27/17 13:02 30 ML Polyethylene (Miralax Powder Packet) 17 gm DAILY PRN PO 08/18/17 17:30 09/17/17 17:29 Ondansetron HCl (Zofran Inj) 4 mg Q6H PRN IV 08/18/17 17:30 09/17/17 17:29 08/22/17 11:11 4 MG Guaifenesin (Mucinex Contr Rel Tab) 600 mg Q12 PO 08/18/17 21:00 09/17/17 20:59 09/04/17 07:51 600 MG Hydroxyzine HCl (Vistaril Tab) 25 mg HS PRN PO 08/20/17 00:30 09/19/17 00:29 09/03/17 23:53 25 MG Bisacodyl (Dulcolax Tab) 10 mg DAILY PO 08/21/17 10:00 09/20/17 09:59 09/04/17 07:49 10 MG Polyethylene (Miralax Powder Packet) 17 gm DAILY PO 08/21/17 10:00 09/20/17 09:59 09/04/17 07:51 17 GM Bisacodyl (Dulcolax Supp) 10 mg DAILY PRN OK 08/21/17 10:00 09/20/17 09:59 Atorvastatin Calcium (Lipitor Tab) 80 mg DAILY PO 08/23/17 09:00 09/22/17 08:59 09/04/17 07:51 80 MG Furosemide (Lasix Tab) 40 mg QAM PO 08/23/17 09:00 09/22/17 08:59 Future hold 09/04/17 07:51 40 MG Multivitamins (Multivitamin Tab) 1 tab QAM PO 08/23/17 09:00 09/22/17 08:59 09/04/17 07:50 1 TAB Pantoprazole Sodium (Protonix Tab) 40 mg QAM PO 08/23/17 09:00 09/22/17 08:59 09/04/17 07:49 40 MG Senna (Senokot Tab) 8.6 mg QAM PO 08/23/17 09:00 09/22/17 08:59 09/04/17 07:51 8.6 MG Sertraline HCl (Zoloft Tab) 75 mg QAM PO 08/23/17 09:00 09/22/17 08:59 09/04/17 07:50 75 MG Bimatoprost (Lumigan 0.01%) 1 drops HS OP 08/22/17 21:00 09/21/17 20:59 09/03/17 19:54 1 DROPS Ferrous Sulfate (Feosol Tab) 325 mg BID PO 08/22/17 21:00 09/21/17 20:59 09/04/17 07:50 325 MG Oxycodone HCl (Roxicodone Immediate Rel Tab) 5 mg Q6H PRN PO 08/25/17 16:00 09/08/17 15:59 09/04/17 08:02 5 MG Metoclopramide HCl (Reglan Inj) 10 mg Q8@0000,0800,1600 IV. 08/25/17 16:00 09/24/17 15:59 09/04/17 07:49 10 MG Morphine Sulfate (MoRPHine SULFATE INJ) 2 mg Q1H PRN IV 08/25/17 16:00 09/08/17 15:59 08/29/17 08:09 2 MG Magnesium Oxide (Mag-Ox Tab) 400 mg QAM PO 08/27/17 09:00 09/26/17 08:59 09/04/17 07:51 400 MG Amiodarone HCl (Cordarone Tab) 200 mg BID PO 08/27/17 21:00 09/26/17 20:59 09/04/17 07:50 200 MG Acetaminophen (Tylenol Tab) 650 mg Q4H PRN PO 09/01/17 03:15 10/01/17 03:14 09/04/17 04:12 650 MG Apixaban (Eliquis Tab) 5 mg BID@0600,1800 PO 09/01/17 16:00 10/01/17 15:59 09/04/17 05:25 5 MG Aspirin (Ecotrin Tab) 81 mg QAM PO 09/04/17 09:00 10/04/17 08:59 09/04/17 07:49 81 MG Iron Sucrose 100 mg/Sodium Chloride 105 ml @ 420 mls/hr TODAY@1045 ONCE IV 09/04/17 10:45 09/04/17 10:59 09/04/17 10:36 420 MLS/HR Lab Results: 09/04/17 06:32 Red Blood Count 3.33, Mean Corpuscular Volume 80.2, Mean Corpuscular Hemoglobin 24.6, Mean Corpuscular Hemoglobin Concent 30.7, Mean Platelet Volume 9.4, Neutrophils (%) (Auto) 64.6, Lymphocytes (%) (Auto) 15.9, Monocytes (%) (Auto) 12.4, Eosinophils (%) (Auto) 6.2, Basophils (%) (Auto) 0.6, Neutrophils # (Auto ) 4.18, Lymphocytes # (Auto) 1.03, Monocytes # (Auto) 0.80, Eosinophils # (Auto ) 0.40, Basophils # (Auto) 0.04 09/04/17 06:32 Test 09/03/17 17:45 09/04/17 06:32 Stool Occult Blood NEGATIVE (NEGATIVE) White Blood Count 6.47 K/uL (4.8-10.8) Red Blood Count 3.33 M/uL (4.7-6.1) Hemoglobin 8.2 g/dL (14.0-18.0) Hematocrit 26.7 % (42-52) Mean Corpuscular Volume 80.2 fL (80-100) Mean Corpuscular Hemoglobin 24.6 pg (25-34) Mean Corpuscular Hemoglobin Concent 30.7 g/dl (32-36) Platelet Count 329 K/uL (130-400) Mean Platelet Volume 9.4 fL (7.4-10.4) Neutrophils (%) (Auto) 64.6 % Lymphocytes (%) (Auto) 15.9 % Monocytes (%) (Auto) 12.4 % Eosinophils (%) (Auto) 6.2 % Basophils (%) (Auto) 0.6 % Neutrophils # (Auto) 4.18 K/uL (1.4-6.5) Lymphocytes # (Auto) 1.03 K/uL (1.2-3.4) Monocytes # (Auto) 0.80 K/uL (0.11-0.59) Eosinophils # (Auto) 0.40 K/uL (0-0.5) Basophils # (Auto) 0.04 K/uL (0-0.2) RDW Standard Deviation 60.1 fL (36.4-46.3) RDW Coefficient of Variation 20.7 % (11.5-14.5) Immature Granulocyte % (Auto) 0.3 % Immature Granulocyte # (Auto) 0.02 K/uL (0.00-0.02) Anisocytosis PRESENT Microcytosis PRESENT Anion Gap 6.0 mmol/L (3-11) Est Creatinine Clear Calc Drug Dose 68.8 ml/min Estimated GFR () 97.9 Estimated GFR (Non- 84.4 BUN/Creatinine Ratio 16.7 (10-20) Calcium Level 8.3 mg/dl (8.5-10.1) Magnesium Level 2.2 mg/dl (1.8-2.4) Total Bilirubin 0.3 mg/dl (0.2-1) Direct Bilirubin 0.2 mg/dl (0-0.2) Aspartate Amino Transf (AST/SGOT) 30 U/L (15-37) Alanine Aminotransferase (ALT/SGPT) 34 U/L (12-78) Alkaline Phosphatase 182 U/L (45-117) Total Protein 5.8 gm/dl (6.4-8.2) Albumin 2.1 gm/dl (3.4-5.0)
--- NOTE | 2017-09-04 13:16 | Hospitalist Progress Note ---
Hospitalist Progress Note Date of Service Sep 04, 2017. (Fay Lutz ., [facility]) Subjective Pt evaluation today including: conversation w/ patient, physical exam, lab review, review of studies, review of inpatient medication list Voiding: no voiding problems Patient sitting in bedside chair. Eating and drinking OK. Denies any complaints. Patient denies any fever, chills, sweats, lightheadedness, dizziness, vision changes, CP, palpitations, edema, SOB, wheezing, cough, abdominal pain, nausea, vomiting, diarrhea, urinary symptoms, melena, numbness/tingling, weakness, muscle/joint pain, anxiety/depression, active bleeding, or new skin discoloration/changes. (Fay Lutz ., [facility]) Medications Current Inpatient Medications Medications (Trade) Dose Ordered Sig/Kaitlynn Route Start Time Stop Time Status Last Admin Dose Admin Magnesium Hydroxide (Milk Of Magnesia Susp) 30 ml Q6H PRN PO 08/18/17 17:30 09/17/17 17:29 08/27/17 13:02 30 ML Polyethylene (Miralax Powder Packet) 17 gm DAILY PRN PO 08/18/17 17:30 09/17/17 17:29 Ondansetron HCl (Zofran Inj) 4 mg Q6H PRN IV 08/18/17 17:30 09/17/17 17:29 08/22/17 11:11 4 MG Guaifenesin (Mucinex Contr Rel Tab) 600 mg Q12 PO 08/18/17 21:00 09/17/17 20:59 09/04/17 07:51 600 MG Hydroxyzine HCl (Vistaril Tab) 25 mg HS PRN PO 08/20/17 00:30 09/19/17 00:29 09/03/17 23:53 25 MG Bisacodyl (Dulcolax Tab) 10 mg DAILY PO 08/21/17 10:00 09/20/17 09:59 09/04/17 07:49 10 MG Polyethylene (Miralax Powder Packet) 17 gm DAILY PO 08/21/17 10:00 09/20/17 09:59 09/04/17 07:51 17 GM Bisacodyl (Dulcolax Supp) 10 mg DAILY PRN DC 08/21/17 10:00 09/20/17 09:59 Atorvastatin Calcium (Lipitor Tab) 80 mg DAILY PO 08/23/17 09:00 09/22/17 08:59 09/04/17 07:51 80 MG Furosemide (Lasix Tab) 40 mg QAM PO 08/23/17 09:00 09/22/17 08:59 Future hold 09/04/17 07:51 40 MG Multivitamins (Multivitamin Tab) 1 tab QAM PO 08/23/17 09:00 09/22/17 08:59 09/04/17 07:50 1 TAB Pantoprazole Sodium (Protonix Tab) 40 mg QAM PO 08/23/17 09:00 09/22/17 08:59 09/04/17 07:49 40 MG Senna (Senokot Tab) 8.6 mg QAM PO 08/23/17 09:00 09/22/17 08:59 09/04/17 07:51 8.6 MG Sertraline HCl (Zoloft Tab) 75 mg QAM PO 08/23/17 09:00 09/22/17 08:59 09/04/17 07:50 75 MG Bimatoprost (Lumigan 0.01%) 1 drops HS OP 08/22/17 21:00 09/21/17 20:59 09/03/17 19:54 1 DROPS Ferrous Sulfate (Feosol Tab) 325 mg BID PO 08/22/17 21:00 09/21/17 20:59 09/04/17 07:50 325 MG Oxycodone HCl (Roxicodone Immediate Rel Tab) 5 mg Q6H PRN PO 08/25/17 16:00 09/08/17 15:59 09/04/17 08:02 5 MG Metoclopramide HCl (Reglan Inj) 10 mg Q8@0000,0800,1600 IV. 08/25/17 16:00 09/24/17 15:59 09/04/17 07:49 10 MG Morphine Sulfate (MoRPHine SULFATE INJ) 2 mg Q1H PRN IV 08/25/17 16:00 09/08/17 15:59 08/29/17 08:09 2 MG Magnesium Oxide (Mag-Ox Tab) 400 mg QAM PO 08/27/17 09:00 09/26/17 08:59 09/04/17 07:51 400 MG Amiodarone HCl (Cordarone Tab) 200 mg BID PO 08/27/17 21:00 09/26/17 20:59 09/04/17 07:50 200 MG Acetaminophen (Tylenol Tab) 650 mg Q4H PRN PO 09/01/17 03:15 10/01/17 03:14 09/04/17 04:12 650 MG Apixaban (Eliquis Tab) 5 mg BID@0600,1800 PO 09/01/17 16:00 10/01/17 15:59 09/04/17 05:25 5 MG Aspirin (Ecotrin Tab) 81 mg QAM PO 09/04/17 09:00 10/04/17 08:59 09/04/17 07:49 81 MG (Fay Lutz, GRETEL-C) Objective Vital Signs Date Time Temp Pulse Resp B/P (MAP) Pulse Ox O2 Delivery O2 Flow Rate FiO2 09/04/17 08:00 Nasal Cannula 2.0 09/04/17 07:21 36.1 52 20 118/56 (76) 100 09/04/17 04:00 Room Air 09/04/17 03:38 36.6 53 19 114/65 (81) 100 Nasal Cannula 2.0 09/04/17 00:00 Room Air 09/03/17 23:50 37.0 55 17 111/77 (88) 95 Room Air 09/03/17 20:00 Room Air 09/03/17 19:11 36.3 52 20 98/52 (67) 99 Nasal Cannula 2.0 09/03/17 16:00 Room Air 09/03/17 15:40 36.3 51 20 89/52 (64) 96 Room Air 09/03/17 12:45 36.7 55 20 92/55 (67) 95 Room Air 09/03/17 12:00 Room Air (Fay Lutz, PA-C) Physical Exam General Appearance: no apparent distress Eyes: normal inspection, PERRL ENT: hearing grossly normal Neck: supple Respiratory/Chest: no respiratory distress, no accessory muscle use, + decreased breath sounds (bilateral lung bases R>L ), + crackles (R lung base), + pertinent finding (R chest tube in place ) Cardiovascular: + bradycardia (regular rhythm ), + systolic murmur Abdomen: normal bowel sounds, non tender, soft Extremities: no pedal edema, no calf tenderness Neurologic/Psychiatric: alert, normal mood/affect, oriented x 3 Skin: normal color, warm/dry, no rash (Fay Lutz PA-C) Laboratory Results Last 24 Hours Test 09/03/17 17:45 09/04/17 06:32 Stool Occult Blood NEGATIVE White Blood Count 6.47 K/uL Red Blood Count 3.33 M/uL Hemoglobin 8.2 g/dL Hematocrit 26.7 % Mean Corpuscular Volume 80.2 fL Mean Corpuscular Hemoglobin 24.6 pg Mean Corpuscular Hemoglobin Concent 30.7 g/dl Platelet Count 329 K/uL Mean Platelet Volume 9.4 fL Neutrophils (%) (Auto) 64.6 % Lymphocytes (%) (Auto) 15.9 % Monocytes (%) (Auto) 12.4 % Eosinophils (%) (Auto) 6.2 % Basophils (%) (Auto) 0.6 % Neutrophils # (Auto) 4.18 K/uL Lymphocytes # (Auto) 1.03 K/uL Monocytes # (Auto) 0.80 K/uL Eosinophils # (Auto) 0.40 K/uL Basophils # (Auto) 0.04 K/uL RDW Standard Deviation 60.1 fL RDW Coefficient of Variation 20.7 % Immature Granulocyte % (Auto) 0.3 % Immature Granulocyte # (Auto) 0.02 K/uL Anisocytosis PRESENT Microcytosis PRESENT Sodium Level 135 mmol/L Potassium Level 4.1 mmol/L Chloride Level 98 mmol/L Carbon Dioxide Level 31 mmol/L Anion Gap 6.0 mmol/L Blood Urea Nitrogen 15 mg/dl Creatinine 0.90 mg/dl Est Creatinine Clear Calc Drug Dose 68.8 ml/min Estimated GFR () 97.9 Estimated GFR (Non- 84.4 BUN/Creatinine Ratio 16.7 Random Glucose 87 mg/dl Calcium Level 8.3 mg/dl Magnesium Level 2.2 mg/dl Total Bilirubin 0.3 mg/dl Direct Bilirubin 0.2 mg/dl Aspartate Amino Transf (AST/SGOT) 30 U/L Alanine Aminotransferase (ALT/SGPT) 34 U/L Alkaline Phosphatase 182 U/L Total Protein 5.8 gm/dl Albumin 2.1 gm/dl (Fay Lutz PA-C) Assessment and Plan This is a 71 yo M with PMHx of dilated cardiomyopathy with severe left ventricular dysfunction with EF equal to 45% in 08/2015, CAD s/p 3 DEZ to diagonal and distal RCA, and PDA in 03/2016, mild aortic stenosis hypertension, hyperlipidemia, elevated alkaline phosphatase, GERD, diverticulosis, depression , weight loss of 40 pounds in the past year, dysphagia, iron deficiency anemia, who presents after right thoracentesis performed by Dr. Lancaster on 08/18/17. Thoracic fluid was found to be purulent so he has been directly admitted to the hospital for IV antibiotics for empyema. R complex pleural effusion, ?empyema, w/ R Pleur-X- management as per Dr. Lancaster: - s/p thoracentesis on 08/18 and thoracoscopic extensive decortication of the right lung on 08/[address] Lancaster - O2 protocol, wean as tolerated - Encourage ambulation and IS - Completed 7 days of IV Zosyn- cultures with no growth - Pleural pathology w/out malignancy Chronic systolic CHF, dilated cardiomyopathy with severe LV Dysfunction- EF 45% , CAD s/p PCI, paroxysmal a.fib/flutter w/ RVR, SVT, HTN, HLD: - Monitor on tele- NSR overnight - Metoprolol 12.5 mg BID held due to low BPs on 09/03 - Amiodarone 200 mg BID, Lasix 40 mg daily, Lipitor 80 mg daily, Mag-Ox supplement, ASA 81 mg daily - Continue to hold Lotensin 20 mg daily due to low/normal BPs - IV Heparin gtt- converted to Eliquis 5 mg BID - Episode of SVT on 08/22- 6 mg + 12 mg Adenosine, then converted to a. flutter w / hypotension- cardioverted but unsuccessful- converted to NSR on 08/23 JAVIER- RESOLVED: Held nephrotoxic agents and renally dosed medications as appropriate Hypotension- RESOLVED: Managed in ICU as per ingredient handler- treated w/ Levophed, IVF, and held hypotensive agents Chronic iron deficient anemia- STABLE: - Follow PRP - Continue iron supplement BID - Stool heme occult negative - Discussed w/ hematology- recommend IV Venofer 300 mg on 09/04 and outpatient f/ u Hypophosphatemia- RESOLVED: Replaced w/ PO supplement Dysphagia, unintentional weight loss: - Speech therapy consulted- moist, regular diet; aspiration precautions - GI consulted- s/p EGD on 08/20- no new recommendations, 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 Discussed with GRETEL Lutz and agree with findings and plan as documented in the note. Any exceptions or clarifications are listed here: Pt feels ok, is ready to get his CT out. Discussed case with Dr. Lancaster of Thoracic Surgery today. As it turns out, the pt had a fall while fishing and landed on his right side last summer, had significant rib pain at that time. CT Surgery thinks his resultant loculated effusion is from an old hemothorax from that fall. Afebrile, remains in NSR but SB at times. BPs improved from yesterday (were low) Vitals reviewed, tele reviewed-bradycardia in 50s-60s and NSR at times NAD, thin RRR, 3/6 NAYANA at RUSB Lungs with decreased BS at bases bilat and crackles middle lung hartmann, chest tube in place with dressing c/d/i ABd +BS soft NT ND Ext no edema 71 yo male with microcytic anemia, unintentional weight loss, chronic combined systolic and diastolic CHF, CAD, HTN, mild-mod aortic stenosis and mild-mod MR, hyperlipidemia, elevated alkaline phosphatase, GERD, diverticulosis, depression , and dysphagia, here with right sided complex loculated pleural effusion secondary to previous fall with hemothorax. Also with abnormal appearing stomach on CT with EGD findings of chronic duodenitis Pleural effusion/Loculated -less drainage in CT, CT Surgery hopeful to remove CT tomorrow -completed course of abx, no growth in pleural fluid, neg for cytology -s/p thoracoscopy and decortication, chest tube remains in place-management by Thoracic Surgery appreciated Anemia-microcytic, no Hemoccult collected yet--> Fe studies still show significant Fe-deficiency despite being on po FeSO4 for some time now- appreciate GI performing EGD, and had colonoscopy in 2017 with one polyp--> Hemoccult negative -started IV iron and he has followed with Dr. Campbell last year for IV iron Hypotension, Sinus bradycardia-improved with holding Toprol Cardio says ok to restart Toprol if BPs improved and ok if HR in 50s during daytime -start Toprol XL 12.5mg daily CAD s/p DEZ 03/2016--> completed DAPT by stopping Plavix 03/2017 with Cardio, is to be on ASA 81mg but was held here for surgery and chest tube. Is now on Eliquis, Hgb low but stable to slowly increasing, no obvious bleeding, Hemoccult negative -resumed ASA 81mg in AM Gallbladder-possible fundal adenomyosis on GB on US--> recommend repeat GB US in 3 months Documented By: Carmel Cantu (Carmel Cantu MD)
[2017-09-04] MEDS: BIMATOPROST 0.01% OP SOLN 2.5 ML BTL OP SCH (20:16)
[2017-09-05] VITALS (8 sets, daily range): BP systolic 101–115; BP diastolic 55–64; PULSE 56–60; TEMP 36.3–36.7; O2SAT 93–96
[2017-09-05] MEDS: OXYCODONE HCL IR 5 MG TAB (IMMEDIATE RELEASE) PO PRN ×2 (02:33→22:55)
[2017-09-05] MEDS: APIXABAN 2.5 MG TAB PO SCH ×2 (05:11→18:14)
--- NOTE | 2017-09-05 07:34 | DIAGNOSTIC IMAGING REPORT ---
CHEST ONE VIEW PORTABLE HISTORY: 71 years-old Male chest tube check follow-up study to assess chest tube COMPARISON: Chest radiograph 09/04/2017 TECHNIQUE: Portable AP view of the chest FINDINGS: Cardiac silhouette is again enlarged, unchanged. Atherosclerosis of the aorta. Mild pulmonary vascular congestion persists. Trace left pleural effusion with unchanged bibasilar opacities. Right basilar pneumothorax is again seen with approximately 12 mm pleural separation, unchanged. Right-sided chest tube is in stable positioning at the level the right lung base projecting medially. Interstitial opacities are seen throughout the lateral right lung base and right midlung which are unchanged. Bones of the chest appear grossly intact. IMPRESSION: 1. Unchanged position of right sided chest tube with persistent right basilar pneumothorax. 2. Trace left pleural effusion with stable bibasilar and lateral right midlung opacities. The above report was generated using voice recognition software. It may contain grammatical, syntax or spelling errors. Electronically signed by: Nikos Alexandra M.D. 09/05/2017 7:32 AM Dictated Date/Time: 09/05/2017 7:27 AM
[2017-09-05] MEDS: PANTOprazole SOD 40 MG TAB PO SCH (07:54)
[2017-09-05] MEDS: FUROSEMIDE 40 MG TAB PO SCH (07:55)
[2017-09-05] MEDS: SERTRALINE HCL 50 MG TAB PO SCH (07:55)
[2017-09-05] MEDS: SENNA 8.6 MG TAB PO SCH (07:55)
[2017-09-05] MEDS: MAGNESIUM OXIDE 400 MG TAB PO SCH (07:55)
[2017-09-05] MEDS: GUAIFENESIN 600 MG TABCR PO SCH ×2 (07:55→20:29)
[2017-09-05] MEDS: MULTIVITAMIN TAB PO SCH (07:55)
[2017-09-05] MEDS: AMIODARONE 200 MG TAB PO SCH ×2 (07:56→20:29)
[2017-09-05] MEDS: ASPIRIN 81 MG ECTAB PO SCH (07:57)
[2017-09-05] MEDS: ATORVASTATIN 40 MG TAB PO SCH (07:57)
[2017-09-05] MEDS: FERROUS SULFATE 325 MG TAB PO SCH (07:57)
[2017-09-05] MEDS: POLYETHYLENE (MIRALAX) 17 GM PACK PO SCH (07:57)
[2017-09-05] MEDS: METOCLOPRAMIDE HCL INJ 5 MG/ML 2 ML VIAL IV. SCH ×2 (07:58→15:37)
[2017-09-05] MEDS: METOPROLOL SUCC 25MG EXT REL TAB PO SCH (07:58)
[2017-09-05] MEDS: BISACODYL 5 MG TABEC PO SCH (07:59)
[2017-09-05 09:02] LABS: HEMATOCRIT 28.1 % (42-52); HEMOGLOBIN 8.4 g/dL (14.0-18.0); MEAN CELL VOLUME 80.7 fL (80-100); MEAN CORPUSCULAR HEMOGLOBIN 24.1 pg (25-34); MEAN CORPUSCULAR HGB CONC 29.9 g/dl (32-36); PLATELET COUNT 316 K/uL (130-400); RED CELL DISTRIBUTION WIDTH CV 20.7 % (11.5-14.5); RED CELL DISTRIBUTION WIDTH SD 60.3 fL (36.4-46.3); WHITE BLOOD COUNT 6.79 K/uL (4.8-10.8)
--- NOTE | 2017-09-05 11:57 | DIAGNOSTIC IMAGING REPORT ---
CHEST ONE VIEW PORTABLE HISTORY: 71 years-old Male tube removal status post chest removal COMPARISON: Chest radiograph of same day 7:18 AM TECHNIQUE: Portable AP view of the chest FINDINGS: Cardiac silhouette is again enlarged, unchanged. Atherosclerosis of the aorta. Mild pulmonary vascular congestion persists. Trace left pleural effusion with unchanged opacities of the bilateral lung bases. Right basilar pneumothorax is again seen with approximately 12 mm pleural separation, stable from comparison. Status post removal of right-sided chest tube with mild subcutaneous emphysema of the right lateral chest wall. Mildly improved aeration of the bilateral lungs with decreased interstitial opacities. Bones of the chest appear grossly intact. IMPRESSION: Persistent right basilar pneumothorax status post removal of right-sided chest tube. The above report was generated using voice recognition software. It may contain grammatical, syntax or spelling errors. Electronically signed by: Nikos Alexandra M.D. 09/05/2017 11:55 AM Dictated Date/Time: 09/05/2017 11:53 AM
--- NOTE | 2017-09-05 14:06 | Hospitalist Progress Note ---
Hospitalist Progress Note Date of Service Sep 05, 2017. (Fay Lutz ., FAIZA) Subjective Pt evaluation today including: conversation w/ patient, physical exam, lab review, review of studies, review of inpatient medication list Voiding: no voiding problems Patient feeling great today. Chest tube removed. No pain. No SOB- on RA. Eating and drinking OK. Patient denies any fever, chills, sweats, lightheadedness, dizziness, vision changes, CP, palpitations, edema, SOB, wheezing, cough, abdominal pain, nausea, vomiting, diarrhea, urinary symptoms, melena, numbness/tingling, weakness, muscle/joint pain, anxiety/depression, active bleeding, or new skin discoloration/changes. (Fay Lutz ., [facility]) Medications Current Inpatient Medications Medications (Trade) Dose Ordered Sig/Kaitlynn Route Start Time Stop Time Status Last Admin Dose Admin Magnesium Hydroxide (Milk Of Magnesia Susp) 30 ml Q6H PRN PO 08/18/17 17:30 09/17/17 17:29 08/27/17 13:02 30 ML Polyethylene (Miralax Powder Packet) 17 gm DAILY PRN PO 08/18/17 17:30 09/17/17 17:29 Ondansetron HCl (Zofran Inj) 4 mg Q6H PRN IV 08/18/17 17:30 09/17/17 17:29 08/22/17 11:11 4 MG Guaifenesin (Mucinex Contr Rel Tab) 600 mg Q12 PO 08/18/17 21:00 09/17/17 20:59 09/05/17 07:55 600 MG Hydroxyzine HCl (Vistaril Tab) 25 mg HS PRN PO 08/20/17 00:30 09/19/17 00:29 09/03/17 23:53 25 MG Bisacodyl (Dulcolax Tab) 10 mg DAILY PO 08/21/17 10:00 09/20/17 09:59 09/04/17 07:49 10 MG Polyethylene (Miralax Powder Packet) 17 gm DAILY PO 08/21/17 10:00 09/20/17 09:59 09/05/17 07:57 17 GM Bisacodyl (Dulcolax Supp) 10 mg DAILY PRN FL 08/21/17 10:00 09/20/17 09:59 Atorvastatin Calcium (Lipitor Tab) 80 mg DAILY PO 08/23/17 09:00 09/22/17 08:59 09/05/17 07:57 80 MG Furosemide (Lasix Tab) 40 mg QAM PO 08/23/17 09:00 09/22/17 08:59 Future hold 09/05/17 07:55 40 MG Multivitamins (Multivitamin Tab) 1 tab QAM PO 08/23/17 09:00 09/22/17 08:59 09/05/17 07:55 1 TAB Pantoprazole Sodium (Protonix Tab) 40 mg QAM PO 08/23/17 09:00 09/22/17 08:59 09/05/17 07:54 40 MG Senna (Senokot Tab) 8.6 mg QAM PO 08/23/17 09:00 09/22/17 08:59 09/05/17 07:55 8.6 MG Sertraline HCl (Zoloft Tab) 75 mg QAM PO 08/23/17 09:00 09/22/17 08:59 09/05/17 07:55 75 MG Bimatoprost (Lumigan 0.01%) 1 drops HS OP 08/22/17 21:00 09/21/17 20:59 09/04/17 20:16 1 DROPS Ferrous Sulfate (Feosol Tab) 325 mg BID PO 08/22/17 21:00 09/21/17 20:59 09/05/17 07:57 325 MG Oxycodone HCl (Roxicodone Immediate Rel Tab) 5 mg Q6H PRN PO 08/25/17 16:00 09/08/17 15:59 09/05/17 02:33 5 MG Metoclopramide HCl (Reglan Inj) 10 mg Q8@0000,0800,1600 IV. 08/25/17 16:00 09/24/17 15:59 09/05/17 07:58 10 MG Morphine Sulfate (MoRPHine SULFATE INJ) 2 mg Q1H PRN IV 08/25/17 16:00 09/08/17 15:59 08/29/17 08:09 2 MG Magnesium Oxide (Mag-Ox Tab) 400 mg QAM PO 08/27/17 09:00 09/26/17 08:59 09/05/17 07:55 400 MG Amiodarone HCl (Cordarone Tab) 200 mg BID PO 08/27/17 21:00 09/26/17 20:59 09/05/17 07:56 200 MG Acetaminophen (Tylenol Tab) 650 mg Q4H PRN PO 09/01/17 03:15 10/01/17 03:14 09/04/17 04:12 650 MG Apixaban (Eliquis Tab) 5 mg BID@0600,1800 PO 09/01/17 16:00 10/01/17 15:59 09/05/17 05:11 5 MG Aspirin (Ecotrin Tab) 81 mg QAM PO 09/04/17 09:00 10/04/17 08:59 09/05/17 07:57 81 MG Metoprolol Succinate (Toprol Xl Tab) 12.5 mg QAM PO 09/05/17 09:00 10/05/17 08:59 09/05/17 07:58 12.5 MG (Fay Lutz ., PA-C) Objective Vital Signs Date Time Temp Pulse Resp B/P (MAP) Pulse Ox O2 Delivery O2 Flow Rate FiO2 09/05/17 12:00 Room Air 09/05/17 11:56 36.3 57 18 101/55 (70) 94 Room Air 09/05/17 08:00 Room Air 09/05/17 07:52 36.7 56 18 110/63 (79) 93 Room Air 09/05/17 04:00 Room Air 09/05/17 03:43 36.5 57 16 109/58 (75) 93 Room Air 09/05/17 00:00 Room Air 09/04/17 23:40 36.5 57 17 112/60 (77) 94 Room Air 09/04/17 20:00 95 Room Air 09/04/17 18:43 36.4 57 20 116/66 (83) 95 Room Air 09/04/17 16:00 94 Room Air 09/04/17 15:25 36.4 55 20 118/65 (82) 93 Nasal Cannula (Fay Lutz, PA-C) Physical Exam General Appearance: no apparent distress Eyes: normal inspection, PERRL ENT: hearing grossly normal Neck: supple Respiratory/Chest: no respiratory distress, no accessory muscle use, + decreased breath sounds (bilateral lung bases ), + crackles (R lung base ), + pertinent finding (R incision site bandage C/D/I ) Cardiovascular: + bradycardia (rhythm regular ), + systolic murmur Abdomen: normal bowel sounds, non tender, soft Extremities: no pedal edema, no calf tenderness Neurologic/Psychiatric: alert, normal mood/affect, oriented x 3 Skin: normal color, warm/dry, no rash (Fay Lutz ., PA-C) Laboratory Results Last 24 Hours Test 09/05/17 08:45 White Blood Count 6.79 K/uL Red Blood Count 3.48 M/uL Hemoglobin 8.4 g/dL Hematocrit 28.1 % Mean Corpuscular Volume 80.7 fL Mean Corpuscular Hemoglobin 24.1 pg Mean Corpuscular Hemoglobin Concent 29.9 g/dl RDW Standard Deviation 60.3 fL RDW Coefficient of Variation 20.7 % Platelet Count 316 K/uL Mean Platelet Volume 9.0 fL (Fay Lutz ., PA-C) Assessment and Plan This is a 71 yo M with PMHx of dilated cardiomyopathy with severe left ventricular dysfunction with EF equal to 45% in 08/2015, CAD s/p 3 DEZ to diagonal and distal RCA, and PDA in 03/2016, mild aortic stenosis hypertension, hyperlipidemia, elevated alkaline phosphatase, GERD, diverticulosis, depression , weight loss of 40 pounds in the past year, dysphagia, iron deficiency anemia, who presents after right thoracentesis performed by Dr. Lancaster on 08/18/17. Thoracic fluid was found to be purulent so he has been directly admitted to the hospital for IV antibiotics for empyema. R complex pleural effusion, ?empyema, w/ R Pleur-X- management as per Dr. Lancaster: - s/p thoracentesis on 08/18 and thoracoscopic extensive decortication of the right lung on 08/[address] Lancaster - O2 protocol, wean as tolerated- on RA - Encourage ambulation and IS - Completed 7 days of IV Zosyn- cultures with no growth - Pleural pathology w/out malignancy Chronic systolic CHF, dilated cardiomyopathy with severe LV Dysfunction- EF 45% , CAD s/p PCI, paroxysmal a.fib/flutter w/ RVR, SVT, HTN, HLD: - Monitor on tele- NSR overnight - Metoprolol 12.5 mg daily - Amiodarone 200 mg BID, Lasix 40 mg daily, Lipitor 80 mg daily, Mag-Ox supplement, ASA 81 mg daily - Continue to hold Lotensin 20 mg daily due to low/normal BPs - IV Heparin gtt- converted to Eliquis 5 mg BID - Episode of SVT on 08/22- 6 mg + 12 mg Adenosine, then converted to a. flutter w / hypotension- cardioverted but unsuccessful- converted to NSR on 08/23 JAVIER- RESOLVED: Held nephrotoxic agents and renally dosed medications as appropriate Hypotension- RESOLVED: Managed in ICU as per appliance repair technician- treated w/ Levophed, IVF, and held hypotensive agents Chronic iron deficient anemia- STABLE: - Follow PRP - Continue iron supplement BID - Stool heme occult negative - Discussed w/ hematology- recommend IV Venofer 300 mg and outpatient f/u Hypophosphatemia- RESOLVED: Replaced w/ PO supplement Dysphagia, unintentional weight loss: - Speech therapy consulted- moist, regular diet; aspiration precautions - GI consulted- s/p EGD on 08/20- no new recommendations, 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 Discussed with GRETEL Lutz and agree with findings and plan as documented in the note. Any exceptions or clarifications are listed here: Patient feeling great now that his chest tube has been removed. I personally reviewed the chest x-ray images and there is still a residual small right-sided pneumothorax at the base. I discussed the case with thoracic surgery. Patient is tolerating p.o., moving his bowels, is working on incentive spirometry and denies shortness of breath. He ambulated the hallways today and felt good about that with assistance. Telemetry reveals he remains in normal sinus rhythm , no recurrences of atrial flutter. Vitals reviewed, tele reviewed-normal sinus rhythm NAD, thin RRR, 3/6 NAYANA at RUSB Lungs with decreased BS at bases bilat and crackles, previous chest tube site with dressing in place that is clean dry and intact ABd +BS soft NT ND Ext no edema 71 yo male with microcytic iron deficiency anemia, unintentional weight loss, chronic combined systolic and diastolic CHF, CAD, HTN, mild-mod aortic stenosis and mild-mod MR, hyperlipidemia, elevated alkaline phosphatase, GERD, diverticulosis, depression, and dysphagia, here with right sided complex loculated pleural effusion secondary to previous fall with hemothorax. Also with abnormal appearing stomach on CT with EGD findings of chronic duodenitis Pleural effusion/Loculated-status post decortication -Chest tube has been removed today -completed course of abx, no growth in pleural fluid, neg for cytology -Plan to follow through the weekend to assess for reaccumulation of pleural fluid-he may end up needing a Pleurx catheter placement as per thoracic surgery -Follow chest x-ray in the morning Anemia-microcytic-> Fe studies still show significant Fe-deficiency despite being on po FeSO4 for some time now-appreciate GI performing EGD, and had colonoscopy in 2017 with one polyp--> Hemoccult negative -started IV iron and he has followed with Dr. Campbell last year for IV iron -Continue to follow up as an outpatient with hematology for continued IV iron infusions -Can discontinue oral ferrous sulfate -Follow CBC periodically Hypotension, Sinus bradycardia-resolved -Continue Toprol XL 12.5mg daily CAD s/p DEZ 03/2016/paroxysmal atrial flutter and fibrillation--> completed DAPT by stopping Plavix 03/2017 with Cardio, is to be on ASA 81mg but was initially held here for surgery and chest tube. -Continue Eliquis for stroke prevention -resumed ASA 81mg -Continue high intensity statin -Discontinued [id number] Reglan as no longer needed Disposition-likely to acute rehab or SNF at Friday at the earliest Documented By: Carmel Cantu (Carmel Cantu MD)
[2017-09-05] MEDS: IRON SUCROSE INJ 100 MG in SODIUM CHLORIDE 0.9% 100ML 100 ML IV SCH ×2 (14:48→15:08)
--- NOTE | 2017-09-05 16:57 | SURGERY PROGRESS NOTE ---
DATE: 09/05/2017 Mr. Rizo looks better today; only drained 80 mL of fluid. I removed his chest tube. He has a small loculated pneumothorax at the right base. This will bear watching. I will see him tomorrow with an x-ray and will see how he progresses. It is possible we would have to reinsert a PleurX catheter if he does not remain drained as I would prefer.
[2017-09-05] MEDS: BIMATOPROST 0.01% OP SOLN 2.5 ML BTL OP SCH (20:28)
[2017-09-06] VITALS (8 sets, daily range): BP systolic 92–120; BP diastolic 51–65; PULSE 55–65; TEMP 36.2–36.8; O2SAT 93–98
[2017-09-06] MEDS: APIXABAN 2.5 MG TAB PO SCH ×2 (05:53→17:54)
[2017-09-06 06:19] LABS: HEMATOCRIT 28.5 % (42-52); HEMOGLOBIN 8.4 g/dL (14.0-18.0); MEAN CELL VOLUME 80.3 fL (80-100); MEAN CORPUSCULAR HEMOGLOBIN 23.7 pg (25-34); MEAN CORPUSCULAR HGB CONC 29.5 g/dl (32-36); PLATELET COUNT 328 K/uL (130-400); RED CELL DISTRIBUTION WIDTH CV 20.7 % (11.5-14.5); RED CELL DISTRIBUTION WIDTH SD 60.2 fL (36.4-46.3); WHITE BLOOD COUNT 6.76 K/uL (4.8-10.8)
[2017-09-06 06:55] LABS: CALCIUM 8.3 mg/dl (8.5-10.1); CREATININE 0.9 mg/dl (0.60-1.40); POTASSIUM 3.9 mmol/L (3.5-5.1)
[2017-09-06] MEDS: AMIODARONE 200 MG TAB PO SCH ×2 (07:10→20:45)
[2017-09-06] MEDS: GUAIFENESIN 600 MG TABCR PO SCH ×2 (07:11→20:45)
[2017-09-06] MEDS: ASPIRIN 81 MG ECTAB PO SCH (07:11)
[2017-09-06] MEDS: ATORVASTATIN 40 MG TAB PO SCH (07:11)
[2017-09-06] MEDS: MULTIVITAMIN TAB PO SCH (07:12)
[2017-09-06] MEDS: SENNA 8.6 MG TAB PO SCH (07:12)
[2017-09-06] MEDS: SERTRALINE HCL 50 MG TAB PO SCH (07:12)
[2017-09-06] MEDS: MAGNESIUM OXIDE 400 MG TAB PO SCH (07:13)
[2017-09-06] MEDS: FUROSEMIDE 40 MG TAB PO SCH (07:13)
[2017-09-06] MEDS: BISACODYL 5 MG TABEC PO SCH (07:14)
[2017-09-06] MEDS: POLYETHYLENE (MIRALAX) 17 GM PACK PO SCH (07:14)
[2017-09-06] MEDS: PANTOprazole SOD 40 MG TAB PO SCH (07:14)
[2017-09-06] MEDS: METOPROLOL SUCC 25MG EXT REL TAB PO SCH (07:15)
--- NOTE | 2017-09-06 08:29 | DIAGNOSTIC IMAGING REPORT ---
CHEST ONE VIEW PORTABLE CLINICAL HISTORY: 71 years-old Male presenting with right pneumothorax. TECHNIQUE: Portable upright AP view of the chest was obtained. COMPARISON: 09/05/2017. FINDINGS: Atherosclerosis of aortic arch. Cardiac silhouette enlarged. Bibasilar opacities greater on the left, unchanged. Small left pleural effusion suspected. Loculated right basilar pneumothorax, unchanged. Degenerative changes of the thoracic spine. Upper abdomen normal. IMPRESSION: 1. Unchanged loculated right basilar pneumothorax. 2. Bibasilar opacities greater on the left, possibly atelectasis. 3. Small left pleural effusion. Electronically signed by: Alex Ross M.D. 09/06/2017 8:28 AM Dictated Date/Time: 09/06/2017 8:26 AM
[2017-09-06] MEDS ORDERED: POTASSIUM CHLORIDE 10 MEQ TABCR PO ONE (09:45)
--- NOTE | 2017-09-06 13:30 | Hospitalist Progress Note ---
Hospitalist Progress Note Date of Service Sep 06, 2017. Subjective Pt evaluation today including: conversation w/ patient Patient feels well. He ambulated the halls and felt just a little short of breath. Denies chest pain. He is tolerating p.o., moving his bowels, and making urine. Telemetry reveals sinus bradycardia in the 50s and normal sinus rhythm in the 60s, some PVCs, no recurrence of atrial flutter or fibrillation. Constitutional: No fever All Other Systems: Reviewed and Negative Objective Vital Signs Date Time Temp Pulse Resp B/P (MAP) Pulse Ox O2 Delivery O2 Flow Rate FiO2 09/06/17 12:00 Room Air 09/06/17 11:37 36.3 55 18 92/51 (65) 98 Room Air 09/06/17 08:00 Room Air 09/06/17 07:49 36.6 58 18 120/65 (83) 93 Room Air 09/06/17 04:00 93 Room Air 09/06/17 03:55 36.8 57 17 111/61 (78) 93 Room Air 09/06/17 03:23 36.7 65 20 118/60 (79) 93 Room Air 09/05/17 23:59 96 Room Air 09/05/17 22:48 36.6 60 18 115/64 (81) 96 Room Air 09/05/17 20:00 95 Room Air 09/05/17 19:04 36.7 59 20 104/57 (73) 95 Room Air 09/05/17 16:00 Room Air 09/05/17 15:36 36.5 60 20 109/60 (76) 93 Room Air Physical Exam General Appearance: no apparent distress, + thin (Sitting in recliner chair) Eyes: normal inspection, sclerae normal ENT: hearing grossly normal, pharynx normal Neck: trachea midline Respiratory/Chest: no respiratory distress, no accessory muscle use, + decreased breath sounds (At the bases bilaterally with some crackles in the midlung hartmann) Cardiovascular: regular rate, rhythm, no edema, + systolic murmur (2/6 NAYANA at the RUSB) Abdomen: normal bowel sounds, non tender, soft Extremities: normal inspection, no pedal edema, no calf tenderness Neurologic/Psychiatric: alert, normal mood/affect, oriented x 3 Skin: normal color, warm/dry, no rash Laboratory Results Last 24 Hours Test 09/06/17 05:58 White Blood Count 6.76 K/uL Red Blood Count 3.55 M/uL Hemoglobin 8.4 g/dL Hematocrit 28.5 % Mean Corpuscular Volume 80.3 fL Mean Corpuscular Hemoglobin 23.7 pg Mean Corpuscular Hemoglobin Concent 29.5 g/dl RDW Standard Deviation 60.2 fL RDW Coefficient of Variation 20.7 % Platelet Count 328 K/uL Mean Platelet Volume 9.0 fL Sodium Level 132 mmol/L Potassium Level 3.9 mmol/L Chloride Level 95 mmol/L Carbon Dioxide Level 33 mmol/L Anion Gap 4.0 mmol/L Blood Urea Nitrogen 15 mg/dl Creatinine 0.90 mg/dl Est Creatinine Clear Calc Drug Dose 68.6 ml/min Estimated GFR () 97.9 Estimated GFR (Non- 84.4 BUN/Creatinine Ratio 16.5 Random Glucose 88 mg/dl Calcium Level 8.3 mg/dl Magnesium Level 2.0 mg/dl Assessment and Plan Patient is a 71 yo male with microcytic iron deficiency anemia, unintentional weight loss, chronic combined systolic and diastolic CHF, CAD status post 3 DEZ to diagonal and distal RCA, and PDA in 03/2016, HTN, mild-mod and mild-mod MR , hyperlipidemia, elevated alkaline phosphatase, GERD, diverticulosis, depression, and dysphagia, here with right sided complex loculated pleural effusion secondary to previous fall with hemothorax. Also with abnormal appearing stomach on CT with EGD findings of chronic duodenitis Pleural effusion/Loculated-status post decortication-pH was very low on initial thoracentesis and there was concern for empyema. He had no growth on the culture, cytology negative for malignancy, and was treated with Zosyn 7 days. - s/p thoracentesis on 08/18 and thoracoscopic extensive decortication of the right lung on 08/[address] Lancaster - O2 protocol, wean as tolerated-remains on RA - Encourage continued ambulation and IS -Chest tube was removed on 09/05 -Plan to follow through the weekend to assess for reaccumulation of pleural fluid-he may end up needing a Pleurx catheter placement as per thoracic surgery -Follow chest x-ray daily Anemia-microcytic-> Fe studies still show significant Fe-deficiency despite being on po FeSO4 for some time now-appreciate GI performing EGD, and had colonoscopy in 2016 with one polyp--> Hemoccult negative -started IV iron and he has followed with Dr. Campbell last year for IV iron -Continue to follow up as an outpatient with hematology for continued IV iron infusions -Can discontinue oral ferrous sulfate -Follow CBC periodically -Can give another dose of IV Venofer 300 mg on Friday Hypotension, Sinus bradycardia-resolved, still with some sinus bradycardia at times but asymptomatic -Continue Toprol XL 12.5mg daily CAD s/p DEZ 03/2016/paroxysmal atrial flutter and fibrillation with RVR/SVT--> completed DAPT by stopping Plavix 03/2017 with Cardio, is to be on ASA 81mg but was initially held here for surgery and chest tube. Was in the ICU for hypotension related to SVT, did not respond to adenosine or cardioversion, but then cardioverted on his own. -Continue amiodarone 200 mg p.o. twice daily and switch to once daily on discharge -Continue Toprol-XL 12.5 mg once daily -Continue Eliquis for stroke prevention -resumed ASA 81mg -Continue high intensity statin I think continue to monitor on telemetry Chronic systolic CHF, dilated cardiomyopathy-echo from 08/2016 with EF 45%, mild- moderate AI and MR,HTN, HLD: -Continue metoprolol 12.5 mg daily -Continue Lasix 40 mg daily, Lipitor 80 mg daily, Mag-Ox supplement, ASA 81 mg daily - Continue to hold Lotensin 20 mg daily due to low/normal BPs-can restart at lower dose if BPs can tolerate JAVIER- RESOLVED: Held nephrotoxic agents and renally dosed medications as appropriate Depression: Continue Zoloft Constipation: Continue bowel regimen with MiraLAX, Dulcolax, Senna; PRN Suppositories Possible fundal adenomyosis on GB on US: Recommend repeat 3 month GB US GERD/chronic duodenitis/Dysphagia, unintentional weight loss: - Speech therapy consulted- moist, regular diet; aspiration precautions - GI consulted- s/p EGD on 08/20- no new recommendations, 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
[2017-09-06] MEDS: BIMATOPROST 0.01% OP SOLN 2.5 ML BTL OP SCH (20:45)
[2017-09-07 03:41] VITALS: BP 136/74; PULSE 66; TEMP 36.7; O2SAT 92
[2017-09-07] MEDS: APIXABAN 2.5 MG TAB PO SCH ×2 (05:54→17:36)
[2017-09-07 06:50] LABS: HEMATOCRIT 26.6 % (42-52); HEMOGLOBIN 7.9 g/dL (14.0-18.0); MEAN CELL VOLUME 80.4 fL (80-100); MEAN CORPUSCULAR HEMOGLOBIN 23.9 pg (25-34); MEAN CORPUSCULAR HGB CONC 29.7 g/dl (32-36); MEAN PLATELET VOLUME 9.3 fL (7.4-10.4); PLATELET COUNT 340 K/uL (130-400); RED CELL DISTRIBUTION WIDTH CV 21.1 % (11.5-14.5); WHITE BLOOD COUNT 7.53 K/uL (4.8-10.8)
[2017-09-07] MEDS: BISACODYL 5 MG TABEC PO SCH (07:26)
[2017-09-07] MEDS: METOPROLOL SUCC 25MG EXT REL TAB PO SCH (07:29)
[2017-09-07] MEDS: SENNA 8.6 MG TAB PO SCH (07:29)
[2017-09-07] MEDS: ASPIRIN 81 MG ECTAB PO SCH (07:30)
[2017-09-07] MEDS: AMIODARONE 200 MG TAB PO SCH ×2 (07:30→20:48)
[2017-09-07] MEDS: MAGNESIUM OXIDE 400 MG TAB PO SCH (07:30)
[2017-09-07] MEDS: MULTIVITAMIN TAB PO SCH (07:30)
[2017-09-07] MEDS: ATORVASTATIN 40 MG TAB PO SCH (07:31)
[2017-09-07] MEDS: POLYETHYLENE (MIRALAX) 17 GM PACK PO SCH (07:31)
[2017-09-07] MEDS: FUROSEMIDE 40 MG TAB PO SCH (07:31)
[2017-09-07] MEDS: GUAIFENESIN 600 MG TABCR PO SCH ×2 (07:31→20:48)
[2017-09-07 07:32] LABS: CALCIUM 8.6 mg/dl (8.5-10.1); CREATININE 0.92 mg/dl (0.60-1.40); POTASSIUM 5.3 mmol/L (3.5-5.1)
[2017-09-07] MEDS: PANTOprazole SOD 40 MG TAB PO SCH (07:32)
[2017-09-07] MEDS: SERTRALINE HCL 50 MG TAB PO SCH (07:32)
[2017-09-07 07:33] VITALS: BP 120/68; PULSE 59; TEMP 36.6; O2SAT 94
--- NOTE | 2017-09-07 09:42 | DIAGNOSTIC IMAGING REPORT ---
CHEST 2 VIEWS ROUTINE CLINICAL HISTORY: Follow-up pleural effusion dyspnea COMPARISON STUDY: 09/06/2017 FINDINGS: Small loculated right basilar pneumothorax unchanged. Prominent bronchovascular markings bilaterally improved. Mild improvement in aeration left lung base. Small residual left effusion. Trace pleural effusion right base. IMPRESSION: Mildly improved exam with a decrease prominence of the pulmonary vasculature. Unchanged loculated right basilar pneumothorax. The above report was generated using voice recognition software. It may contain grammatical, syntax or spelling errors. Electronically signed by: John Linder M.D. 09/07/2017 9:41 AM Dictated Date/Time: 09/07/2017 9:40 AM
--- NOTE | 2017-09-07 11:29 | SURGERY PROGRESS NOTE ---
DATE: 09/07/2017 Mr. Rizo is being transferred up to another room off of telemetry. He looks great today. I viewed his chest x-ray and I think that his pneumothorax, which is loculated in the right base is better. He has better expansion of his lung there. Overall, he is improved. He does have a small left pleural effusion. We will continue monitoring him. I am quite happy with his progress.
[2017-09-07 11:30] VITALS: BP 107/58; PULSE 69; TEMP 36.4; O2SAT 97
[2017-09-07 15:24] VITALS: BP 130/66; PULSE 56; TEMP 36.7; O2SAT 95
[2017-09-07 19:00] VITALS: BP 119/58; PULSE 61; TEMP 36.5; O2SAT 96
--- NOTE | 2017-09-07 19:00 | Progress Note ---
Subjective Date of Service: Sep 07, 2017. Subjective Pt evaluation today including: conversation w/ patient, physical exam, chart review, lab review, review of studies (cxr), review of inpatient medication list Pain: denies any chest pain PO Intake: normal, good appetite Voiding: no voiding problems tele stable overnight; no a.fib or flutter feels "good" denies any dyspnea or cough anxious for d/c to rehab Problem List Medical Problems: (1) Alkaline phosphatase elevation Status: Acute (2) Anemia Status: Acute (3) Chest pain Status: Acute (4) Gastritis Status: Acute (5) Pleural effusion, bilateral Status: Acute Review of Systems Constitutional: No fever Respiratory: No cough, No shortness of breath, No dyspnea on exertion Cardiac: No chest pain, No orthopnea, No PND, No edema Abdomen: No pain, No constipation Objective Vital Signs Date Time Temp Pulse Resp B/P (MAP) Pulse Ox O2 Delivery O2 Flow Rate FiO2 09/07/17 16:00 Room Air 09/07/17 15:24 36.7 56 23 130/66 (87) 95 Room Air 09/07/17 12:00 Room Air 09/07/17 11:30 36.4 69 18 107/58 (74) 97 Room Air 09/07/17 08:00 Room Air 09/07/17 07:33 36.6 59 16 120/68 (85) 94 Room Air 09/07/17 04:01 Room Air 09/07/17 03:41 36.7 66 18 136/74 (94) 92 Room Air 09/07/17 00:02 Room Air 09/06/17 23:20 36.7 59 17 107/53 (71) 94 Room Air 09/06/17 20:00 Room Air 09/06/17 19:02 36.2 58 24 116/57 (76) 94 Room Air Physical Exam General Appearance: no apparent distress ENT: pharynx normal Neck: no JVD Respiratory/Chest: lungs clear, no respiratory distress, no accessory muscle use, + decreased breath sounds (bases) Cardiovascular: regular rate, rhythm, no gallop, + systolic murmur (2/6 holosystolic RUSB) Abdomen: normal bowel sounds, non tender, soft, no organomegaly Extremities: no pedal edema Neurologic/Psychiatric: alert, oriented x 3 Laboratory Results Last 24 Hours Test 09/07/17 06:05 09/07/17 10:51 White Blood Count 7.53 K/uL Red Blood Count 3.31 M/uL Hemoglobin 7.9 g/dL Hematocrit 26.6 % Mean Corpuscular Volume 80.4 fL Mean Corpuscular Hemoglobin 23.9 pg Mean Corpuscular Hemoglobin Concent 29.7 g/dl RDW Standard Deviation 60.0 fL RDW Coefficient of Variation 21.1 % Platelet Count 340 K/uL Mean Platelet Volume 9.3 fL Sodium Level 134 mmol/L Potassium Level 5.3 mmol/L 3.9 mmol/L Chloride Level 100 mmol/L Carbon Dioxide Level 30 mmol/L Anion Gap 4.0 mmol/L Blood Urea Nitrogen 17 mg/dl Creatinine 0.92 mg/dl Est Creatinine Clear Calc Drug Dose 65.8 ml/min Estimated GFR () 95.3 Estimated GFR (Non- 82.2 BUN/Creatinine Ratio 18.3 Random Glucose 91 mg/dl Calcium Level 8.6 mg/dl Magnesium Level 2.1 mg/dl Assessment and Plan 71yo male - 1. right sided complex loculated pleural effusion secondary to previous fall with hemothorax (suspected) - status post decortication by Dr. Lancaster 08/25/17. all chest tubes have been discontinued (09/05/17) with stable cxr over the last few days (no reaccumulation of pleural fluid, pneumothorax is quite small, etc). pH was very low on initial thoracentesis and there was concern for empyema; however he had no growth on the culture and cytology was negative for malignancy. Received 7 days of IV abx - this has been d/c. 2. microcytic anemia - s/p EGD by Dr. 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 No obvious pathological signs of celiac. s/p IV iron this admission. Plan for IV Venofer 300 mg tomorrow. 3. hyperkalemia - repeat K was normal - likely was hemolyzed. 4. recent a. fib/flutter - has not recurred. Cont xarelto for stroke prevention. Cont BB and amiodarone. Change latter to once daily dosing at discharge. Has had intermittent sinus bradycardia but this is largely resolved. 5. CAD s/p stenting 03/2016 - stable. Cont BB, aspirin, statin. 6. chronic systolic CHF- EF 45% - compensated. Cont BB, lasix. Holding JACQUE for now. 7. hyponatremia - improved, likely 2nd to diuretic usage. 8. recent acute kidney injury - resolved. 9. depression - continue Zoloft. 10. constipation - stable, controlled w/ miralax, etc. 11. possible fundal adenomyosis on GB on US - repeat ultrasound in 3 months. 12. dysphagia - s/p EGD w/o pathology to explain symptoms. Speech recs - moist , regular diet. 13. GERD - PPI. 14. DVT proph - eliquis. 15. elevated INR - repeat in AM; vit K deficiency?? Disposition-likely to acute rehab or SNF at Friday/Friday Continued [facility] stay due to: other (pneumothorax, recent chest tubes) Discharge planning: rehab hospital (vs SNF for rehab)
[2017-09-07] MEDS: BIMATOPROST 0.01% OP SOLN 2.5 ML BTL OP SCH (20:48)
[2017-09-07 23:32] VITALS: BP 130/53; PULSE 57; TEMP 36.7; O2SAT 96
[2017-09-08 03:39] VITALS: BP 111/48; PULSE 55; TEMP 36.7; O2SAT 98
[2017-09-08] MEDS: APIXABAN 2.5 MG TAB PO SCH ×2 (06:06→17:52)
[2017-09-08 07:25] LABS: INR 1.4 (0.9-1.1)
[2017-09-08 07:45] LABS: CALCIUM 8.5 mg/dl (8.5-10.1); CREATININE 0.79 mg/dl (0.60-1.40); POTASSIUM 3.9 mmol/L (3.5-5.1)
[2017-09-08 08:13] VITALS: BP 133/70; PULSE 57; TEMP 36.6; O2SAT 96
--- NOTE | 2017-09-08 08:19 | SURGERY PROGRESS NOTE ---
DATE: 09/08/2017 Mr. Rizo looks great. Been ambulating quite a bit. I removed all of his dressings and his incisions are all clean. I was happy with his x-ray yesterday. He is on room air. He is tolerating a regular diet. He denies pain. All in all, I think Mr. Rizo looks great. His hemoglobin remains low but stable. At this point, I believe Mr. Rizo is quite stable. From my standpoint, I believe he can be discharged or transferred to an extended care or rehab facility. I would like to see him back in a week or two with an x-ray.
[2017-09-08] MEDS: POLYETHYLENE (MIRALAX) 17 GM PACK PO SCH (08:36)
[2017-09-08] MEDS: FUROSEMIDE 40 MG TAB PO SCH (08:37)
[2017-09-08] MEDS: SERTRALINE HCL 50 MG TAB PO SCH (08:37)
[2017-09-08] MEDS: GUAIFENESIN 600 MG TABCR PO SCH ×2 (08:38→21:07)
[2017-09-08] MEDS: METOPROLOL SUCC 25MG EXT REL TAB PO SCH (08:38)
[2017-09-08] MEDS: ASPIRIN 81 MG ECTAB PO SCH (08:38)
[2017-09-08] MEDS: BISACODYL 5 MG TABEC PO SCH (08:38)
[2017-09-08] MEDS: PANTOprazole SOD 40 MG TAB PO SCH (08:38)
[2017-09-08] MEDS: ATORVASTATIN 40 MG TAB PO SCH (08:38)
[2017-09-08] MEDS: SENNA 8.6 MG TAB PO SCH (08:38)
[2017-09-08] MEDS: MULTIVITAMIN TAB PO SCH (08:39)
[2017-09-08] MEDS: MAGNESIUM OXIDE 400 MG TAB PO SCH (08:39)
[2017-09-08] MEDS: AMIODARONE 200 MG TAB PO SCH ×2 (08:39→21:07)
[2017-09-08] MEDS: IRON SUCROSE INJ 100 MG in SODIUM CHLORIDE 0.9% 100ML 100 ML IV SCH (08:43)
[2017-09-08 12:37] VITALS: BP 95/51; PULSE 54; TEMP 36.4; O2SAT 98
[2017-09-08 14:16] VITALS: BP 95/51; PULSE 54; TEMP 36.4; O2SAT 98
[2017-09-08 15:10] VITALS: BP 95/57; PULSE 59; TEMP 36.5; O2SAT 95
--- NOTE | 2017-09-08 20:14 | Progress Note ---
Subjective Date of Service: Sep 08, 2017. Subjective Pt evaluation today including: conversation w/ patient, conversation w/ family (daughter by phone), physical exam, chart review, lab review Pain: none PO Intake: normal Voiding: no voiding problems tele stable overnight - no a. fib/flutter feels good having bowel movements no dyspnea no chest discomfort tolerated Venofer again this AM Problem List Medical Problems: (1) Alkaline phosphatase elevation Status: Acute (2) Anemia Status: Acute (3) Chest pain Status: Acute (4) Gastritis Status: Acute (5) Pleural effusion, bilateral Status: Acute Review of Systems Constitutional: No fever Respiratory: No cough Cardiac: No chest pain, No orthopnea Abdomen: No pain Objective Vital Signs Date Time Temp Pulse Resp B/P (MAP) Pulse Ox O2 Delivery O2 Flow Rate FiO2 09/08/17 15:10 Room Air 09/08/17 15:10 36.5 59 16 95/57 (70) 95 Room Air 09/08/17 14:16 36.4 54 20 98 09/08/17 12:37 36.4 54 20 95/51 (66) 98 Room Air 09/08/17 12:00 Room Air 09/08/17 08:13 36.6 57 20 133/70 (91) 96 Room Air 09/08/17 08:02 Room Air 09/08/17 04:00 Room Air 09/08/17 03:39 36.7 55 17 111/48 (69) 98 Room Air 09/08/17 00:00 Room Air 09/07/17 23:32 36.7 57 17 130/53 (78) 96 Room Air Physical Exam General Appearance: no apparent distress ENT: pharynx normal Neck: no JVD Respiratory/Chest: no respiratory distress, no accessory muscle use, + decreased breath sounds (both bases, worse on right) Cardiovascular: regular rate, rhythm, no gallop, + systolic murmur (2/6 RUSB) Abdomen: normal bowel sounds, non tender, soft, no organomegaly Extremities: no pedal edema Neurologic/Psychiatric: alert, oriented x 3 Skin: + pertinent finding (recent Chest tube sites, right chest - clean, healing) Laboratory Results Last 24 Hours Test 09/08/17 06:28 Hemoglobin 8.3 g/dL Prothrombin Time 15.0 SECONDS Prothromb Time International Ratio 1.4 Sodium Level 135 mmol/L Potassium Level 3.9 mmol/L Chloride Level 98 mmol/L Carbon Dioxide Level 31 mmol/L Anion Gap 6.0 mmol/L Blood Urea Nitrogen 15 mg/dl Creatinine 0.79 mg/dl Est Creatinine Clear Calc Drug Dose 76.0 ml/min Estimated GFR () 103.2 Estimated GFR (Non- 89.1 BUN/Creatinine Ratio 19.0 Random Glucose 85 mg/dl Calcium Level 8.5 mg/dl Assessment and Plan 71yo male - 1. right sided complex loculated pleural effusion secondary to previous fall ( suspected) - status post decortication by Dr. Lancaster 08/25/17. all chest tubes have been discontinued (09/05/17) with stable cxr over the last few days (no reaccumulation of pleural fluid, pneumothorax is quite small, etc). pH was very low on initial thoracentesis and there was concern for empyema; however he had no growth on the culture and cytology was negative for malignancy. Received 7 days of IV abx - this has been d/c. Pulmonary exam continues to remain stable; ok from CT surgery to d/c out of the hospital at this point with outpatient follow-up. 2. microcytic anemia - s/p EGD by Dr. 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 No obvious pathological signs of celiac. s/p IV iron this admission with repeat venofer today. Stable hemoglobin today. 3. recent a. fib/flutter - has not recurred. Cont xarelto for stroke preventias had intermittent sinus bradycardia but this is largely resolved. 4. CAD s/p stenting 03/2016 - stable. Cont BB, aspirin, statin. 5. chronic systolic CHF- EF 45% - compensated. Cont BB, lasix. Holding JACQUE due to low BP. 6. hyponatremia - resolved. 7. recent acute kidney injury - resolved. 8. depression - continue Zoloft. 9. constipation - stable, controlled w/ miralax, etc. 10. possible fundal adenomyosis on GB on US - repeat ultrasound in 3 months. 11. dysphagia - s/p EGD w/o pathology to explain symptoms. Speech recs - moist , regular diet. 12. GERD - PPI. 13. DVT proph - eliquis. 14. elevated INR - due to eliquis? daughter updated auth pending for [facility] to d/c tele; transfer to med/surg Continued [facility] stay due to: other (pneumothorax, recent chest tubes) Discharge planning: rehab hospital (vs SNF for rehab)
[2017-09-08] MEDS: BIMATOPROST 0.01% OP SOLN 2.5 ML BTL OP SCH (21:07)
[2017-09-08 22:53] VITALS: BP 121/50; PULSE 62; TEMP 37.1; O2SAT 96
[2017-09-09] MEDS: APIXABAN 2.5 MG TAB PO SCH ×2 (06:08→18:27)
[2017-09-09 07:21] VITALS: BP 124/65; PULSE 56; TEMP 36.6; O2SAT 96
[2017-09-09 07:46] LABS: CALCIUM 8.5 mg/dl (8.5-10.1); CREATININE 0.87 mg/dl (0.60-1.40)
--- NOTE | 2017-09-09 08:43 | SURGERY PROGRESS NOTE ---
DATE: 09/09/2017 SUBJECTIVE: Mr. Rioz looks great today. He is off the monitor. He is on a regular floor. He has already ambulated this morning. Quite frankly, I think he looks good. We are going to continue watching him. He apparently is going to be going to an extended care facility, which I think is appropriate; however, he appears to me to be getting better every day. [email or web address]
[2017-09-09] MEDS: ASPIRIN 81 MG ECTAB PO SCH (09:00)
[2017-09-09] MEDS: BISACODYL 5 MG TABEC PO SCH (09:00)
[2017-09-09] MEDS: ATORVASTATIN 40 MG TAB PO SCH (09:00)
[2017-09-09] MEDS: MULTIVITAMIN TAB PO SCH (10:10)
[2017-09-09] MEDS: GUAIFENESIN 600 MG TABCR PO SCH ×2 (10:11→21:25)
[2017-09-09] MEDS: FUROSEMIDE 40 MG TAB PO SCH (10:11)
[2017-09-09] MEDS: MAGNESIUM OXIDE 400 MG TAB PO SCH (10:11)
[2017-09-09] MEDS: METOPROLOL SUCC 25MG EXT REL TAB PO SCH (10:11)
[2017-09-09] MEDS: AMIODARONE 200 MG TAB PO SCH ×2 (10:11→21:25)
[2017-09-09] MEDS: SENNA 8.6 MG TAB PO SCH (10:11)
[2017-09-09] MEDS: SERTRALINE HCL 50 MG TAB PO SCH (10:12)
[2017-09-09] MEDS: POLYETHYLENE (MIRALAX) 17 GM PACK PO SCH (10:12)
[2017-09-09] MEDS: PANTOprazole SOD 40 MG TAB PO SCH (10:12)
[2017-09-09] MEDS: IRON SUCROSE INJ 100 MG in SODIUM CHLORIDE 0.9% 100ML 100 ML IV SCH (12:20)
[2017-09-09 12:34] VITALS: BP 111/66; PULSE 58; TEMP 36.2; O2SAT 98
[2017-09-09 12:46] VITALS: BP 108/61; PULSE 56; TEMP 36.5; O2SAT 97
[2017-09-09 15:05] VITALS: BP 101/55; PULSE 56; TEMP 36.7; O2SAT 96
--- NOTE | 2017-09-09 18:46 | Progress Note ---
Subjective Date of Service: Sep 09, 2017. Subjective Pt evaluation today including: conversation w/ patient, conversation w/ family (daughter at bedside ), physical exam, chart review, lab review, conversation w / exchange underwriting consultant ([id number] at insurance co), review of inpatient medication list Pain: denies PO Intake: normal Voiding: no voiding problems patient doing well anxious to d/c to rehab denies any pleuritic chest pain, dyspnea, cough, abd pain, vomiting, etc family at bedside Problem List Medical Problems: (1) Alkaline phosphatase elevation Status: Acute (2) Anemia Status: Acute (3) Chest pain Status: Acute (4) Gastritis Status: Acute (5) Pleural effusion, bilateral Status: Acute Objective Vital Signs Date Time Temp Pulse Resp B/P (MAP) Pulse Ox O2 Delivery O2 Flow Rate FiO2 09/09/17 15:05 36.7 56 16 101/55 (70) 96 Room Air 09/09/17 12:46 36.5 56 16 108/61 (77) 97 Room Air 09/09/17 12:34 36.2 58 16 111/66 (81) 98 Room Air 09/09/17 08:58 Room Air 09/09/17 07:21 36.6 56 16 124/65 (84) 96 Room Air 09/08/17 23:30 Room Air 09/08/17 22:53 37.1 62 16 121/50 (73) 96 Room Air Physical Exam General Appearance: no apparent distress ENT: pharynx normal Neck: no JVD Respiratory/Chest: no respiratory distress, no accessory muscle use, + decreased breath sounds (right base, minimally decreased left base as well ) Cardiovascular: regular rate, rhythm, no gallop, + systolic murmur (2/6 holosystolic RUSB) Abdomen: normal bowel sounds, non tender, soft, no organomegaly Extremities: no pedal edema Neurologic/Psychiatric: alert, oriented x 3 Laboratory Results Last 24 Hours Test 09/09/17 06:55 Hemoglobin 8.5 g/dL Sodium Level 134 mmol/L Potassium Level 4.0 mmol/L Chloride Level 99 mmol/L Carbon Dioxide Level 30 mmol/L Anion Gap 5.0 mmol/L Blood Urea Nitrogen 13 mg/dl Creatinine 0.87 mg/dl Est Creatinine Clear Calc Drug Dose 69.4 ml/min Estimated GFR () 99.2 Estimated GFR (Non- 85.6 BUN/Creatinine Ratio 14.8 Random Glucose 88 mg/dl Calcium Level 8.5 mg/dl Assessment and Plan 71yo male - 1. right sided complex loculated pleural effusion secondary to a previous fall (suspected) - status post decortication by Dr. Lancaster 08/25/17. all chest tubes discontinued (09/05/17) with stable cxr over the last few days ( no reaccumulation of pleural fluid, pneumothorax is small, etc). pH was very low on initial thoracentesis and there was concern for empyema; however he had no growth on the culture and cytology was negative for malignancy. Received 7 days of IV abx - this has been d/c. Pulmonary exam continues to remain stable; ok from CT surgery to d/c out of the hospital at this point with outpatient follow-up and chest x-rays periodically to ensure stable lungs. 2. microcytic anemia - s/p EGD by Dr. Cummins - nonspecific duodenitis with Caio's Glands hyperplasia - latter likely of no clinical significance. No obvious pathological signs of celiac. s/p IV iron this admission with repeat venofer today once again. Stable hemoglobin today at 8.5. Venofer again tomorrow. 3. recent a. fib/flutter - has not recurred. Cont xarelto for stroke prevention. Has had intermittent sinus bradycardia but not of significance. 4. CAD s/p stenting 03/2016 - stable. Cont BB, aspirin, statin. 5. chronic systolic CHF- EF 45% - compensated. Cont BB, lasix. Holding JACQUE due to low BP. 6. hyponatremia - resolved. 7. recent acute kidney injury - resolved. 8. depression - continue Zoloft. 9. constipation - resolved. 10. possible fundal adenomyosis on GB on US - repeat ultrasound in 3 months. 11. dysphagia - s/p EGD w/o pathology to explain symptoms. Speech recs - moist , regular diet. No issues last few days. 12. GERD/duodenitis - PPI. 13. DVT proph - eliquis. 14. elevated INR - due to eliquis? vs vit K deficiency. probably due to eliquis. daughter updated again at bedside despite speaking with insurance company today -- [id number] -- apparently the request for inpatient rehab at [facility] was denied I disagree with this decision given the complexity of this gentleman's stay and high risk of readmission along with his deconditioning I will ask his family to appeal the denial for rehab Continued [facility] stay due to: other (pneumothorax, recent chest tubes) Discharge planning: rehab hospital (vs SNF for rehab)
[2017-09-09] MEDS: BIMATOPROST 0.01% OP SOLN 2.5 ML BTL OP SCH (21:24)
[2017-09-09 22:50] VITALS: BP 114/61; PULSE 60; TEMP 36.6; O2SAT 96
[2017-09-10] MEDS: APIXABAN 2.5 MG TAB PO SCH ×2 (05:41→17:56)
[2017-09-10 08:01] VITALS: BP 118/78; PULSE 58; TEMP 36.6; O2SAT 95
[2017-09-10 08:40] VITALS: O2SAT 95
[2017-09-10] MEDS: BISACODYL 5 MG TABEC PO SCH (09:00)
[2017-09-10] MEDS: IRON SUCROSE INJ 100 MG in SODIUM CHLORIDE 0.9% 100ML 100 ML IV SCH (09:00)
[2017-09-10] MEDS: ATORVASTATIN 40 MG TAB PO SCH (09:33)
[2017-09-10] MEDS: MAGNESIUM OXIDE 400 MG TAB PO SCH (09:33)
[2017-09-10] MEDS: FUROSEMIDE 40 MG TAB PO SCH (09:33)
[2017-09-10] MEDS: SENNA 8.6 MG TAB PO SCH (09:33)
[2017-09-10] MEDS: GUAIFENESIN 600 MG TABCR PO SCH ×2 (09:34→20:45)
[2017-09-10] MEDS: MULTIVITAMIN TAB PO SCH (09:34)
[2017-09-10] MEDS: SERTRALINE HCL 50 MG TAB PO SCH (09:34)
[2017-09-10] MEDS: AMIODARONE 200 MG TAB PO SCH (09:34)
[2017-09-10] MEDS: PANTOprazole SOD 40 MG TAB PO SCH (09:34)
[2017-09-10] MEDS: ASPIRIN 81 MG ECTAB PO SCH (09:34)
[2017-09-10] MEDS: METOPROLOL SUCC 25MG EXT REL TAB PO SCH (09:34)
[2017-09-10] MEDS: POLYETHYLENE (MIRALAX) 17 GM PACK PO SCH (09:45)
--- NOTE | 2017-09-10 10:11 | Cardiology Follow-Up ---
Subjective Subjective Date of Service: Sep 10, 2017. Pt evaluation today including: conversation w/ patient, physical exam, chart review, lab review, review of studies, review of inpatient medication list Additional Details: Feeling well. Up walking halls. Tolerating diet. No new complaints. Anxious to head to rehab Problem List Medical Problems: (1) Alkaline phosphatase elevation Status: Acute (2) Anemia Status: Acute (3) Chest pain Status: Acute (4) Gastritis Status: Acute (5) Pleural effusion, bilateral Status: Acute Review of Systems Constitutional: No fever Eyes: No worsening of vision Respiratory: No cough Cardiac: No chest pain, No orthopnea Abdomen: No pain Neurologic: No memory loss Psychiatric: No depression symptoms Heme: No abnormal bleeding/bruising Skin: No rash Objective Vital Signs Last Vital Signs Documentation Date Time Temp Pulse Resp B/P (MAP) Pulse Ox O2 Delivery O2 Flow Rate FiO2 09/10/17 08:40 95 Room Air 09/10/17 08:01 36.6 58 16 118/78 (91) 09/04/17 08:00 2.0 Physical Exam: General Appearance: no apparent distress ENT: pharynx normal Neck: no JVD Respiratory/Chest: lungs clear, no respiratory distress, no accessory muscle use, + decreased breath sounds (Minimally decreased at the right base) Cardiovascular: regular rate, rhythm, no gallop, + bradycardia, + systolic murmur (2/6 holosystolic RUSB) Abdomen: normal bowel sounds, non tender, soft Extremities: no pedal edema Neurologic/Psychiatric: alert, oriented x 3 Skin: + pertinent finding (recent Chest tube sites, right chest - clean, healing) Lymphatic: no adenopathy Assessment and Plan 1. Complicated Pleural effusion/Hemothorax s/p thoracoscopy with decortication 2. Paroxysmal Atrial flutter with RVR -- in NSR on amio 3. Intermittent junctional bradycardia -- brief episode, has not recurred 4. Chronic systolic heart failure/ICM EF 35-40% . 5. Multivessel CAD 6. Moderate to severe 7. Dysphagia/Unintentional weight loss 8. Anemia Patient doing well, awaiting rehab stay. Well compensated on current diuretics. Remains in sinus rhythm --would reduce amiodarone from 200 b.i.d. to 200 daily --otherwise continue current Lasix, low-dose beta-salbador, statin, apixaban. Will try to restart JACQUE as an outpatient. Follow-up with Cardiology in 3-4 weeks. Continued [facility] stay due to: other (pneumothorax, recent chest tubes) Discharge planning: rehab hospital (vs SNF for rehab) Medications: Current Inpatient Medications Medications (Trade) Dose Ordered Sig/Kaitlynn Route Start Time Stop Time Status Last Admin Dose Admin Magnesium Hydroxide (Milk Of Magnesia Susp) 30 ml Q6H PRN PO 08/18/17 17:30 09/17/17 17:29 08/27/17 13:02 30 ML Polyethylene (Miralax Powder Packet) 17 gm DAILY PRN PO 08/18/17 17:30 09/17/17 17:29 Ondansetron HCl (Zofran Inj) 4 mg Q6H PRN IV 08/18/17 17:30 09/17/17 17:29 08/22/17 11:11 4 MG Guaifenesin (Mucinex Contr Rel Tab) 600 mg Q12 PO 08/18/17 21:00 09/17/17 20:59 09/10/17 09:34 600 MG Hydroxyzine HCl (Vistaril Tab) 25 mg HS PRN PO 08/20/17 00:30 09/19/17 00:29 09/03/17 23:53 25 MG Bisacodyl (Dulcolax Tab) 10 mg DAILY PO 08/21/17 10:00 09/20/17 09:59 09/08/17 08:38 10 MG Polyethylene (Miralax Powder Packet) 17 gm DAILY PO 08/21/17 10:00 09/20/17 09:59 09/10/17 09:45 17 GM Bisacodyl (Dulcolax Supp) 10 mg DAILY PRN DE 08/21/17 10:00 09/20/17 09:59 Atorvastatin Calcium (Lipitor Tab) 80 mg DAILY PO 08/23/17 09:00 09/22/17 08:59 09/10/17 09:33 80 MG Furosemide (Lasix Tab) 40 mg QAM PO 08/23/17 09:00 09/22/17 08:59 Future hold 09/10/17 09:33 40 MG Multivitamins (Multivitamin Tab) 1 tab QAM PO 08/23/17 09:00 09/22/17 08:59 09/10/17 09:34 1 TAB Pantoprazole Sodium (Protonix Tab) 40 mg QAM PO 08/23/17 09:00 09/22/17 08:59 09/10/17 09:34 40 MG Senna (Senokot Tab) 8.6 mg QAM PO 08/23/17 09:00 09/22/17 08:59 09/10/17 09:33 8.6 MG Sertraline HCl (Zoloft Tab) 75 mg QAM PO 08/23/17 09:00 09/22/17 08:59 09/10/17 09:34 75 MG Bimatoprost (Lumigan 0.01%) 1 drops HS OP 08/22/17 21:00 09/21/17 20:59 09/09/17 21:24 1 DROPS Magnesium Oxide (Mag-Ox Tab) 400 mg QAM PO 08/27/17 09:00 09/26/17 08:59 09/10/17 09:33 400 MG Amiodarone HCl (Cordarone Tab) 200 mg BID PO 08/27/17 21:00 09/26/17 20:59 09/10/17 09:34 200 MG Acetaminophen (Tylenol Tab) 650 mg Q4H PRN PO 09/01/17 03:15 10/01/17 03:14 09/04/17 04:12 650 MG Apixaban (Eliquis Tab) 5 mg BID@0600,1800 PO 09/01/17 16:00 10/01/17 15:59 09/10/17 05:41 5 MG Aspirin (Ecotrin Tab) 81 mg QAM PO 09/04/17 09:00 10/04/17 08:59 09/10/17 09:34 81 MG Metoprolol Succinate (Toprol Xl Tab) 12.5 mg QAM PO 09/05/17 09:00 10/05/17 08:59 09/10/17 09:34 12.5 MG
[2017-09-10 15:20] VITALS: BP 105/59; PULSE 54; TEMP 36.7; O2SAT 96
[2017-09-10 15:35] VITALS: O2SAT 96
[2017-09-10] MEDS: ACETAMINOPHEN 325 MG TAB PO PRN (15:43)
[2017-09-10] MEDS: BIMATOPROST 0.01% OP SOLN 2.5 ML BTL OP SCH (20:45)
--- NOTE | 2017-09-10 20:52 | Progress Note ---
Subjective Date of Service: Sep 10, 2017. Subjective Pt evaluation today including: conversation w/ patient, conversation w/ family (daughter by phone), physical exam, chart review, lab review Pain: none PO Intake: normal Voiding: no voiding problems feels great disappointed [facility] was denied by insurance no new complaints Problem List Medical Problems: (1) Alkaline phosphatase elevation Status: Acute (2) Anemia Status: Acute (3) Chest pain Status: Acute (4) Gastritis Status: Acute (5) Pleural effusion, bilateral Status: Acute Review of Systems Constitutional: No fever Respiratory: No shortness of breath, No dyspnea on exertion Cardiac: No chest pain Abdomen: No pain Objective Vital Signs Date Time Temp Pulse Resp B/P (MAP) Pulse Ox O2 Delivery O2 Flow Rate FiO2 09/10/17 15:35 96 Room Air 09/10/17 15:20 36.7 54 18 105/59 (74) 96 Room Air 09/10/17 08:40 95 Room Air 09/10/17 08:01 36.6 58 16 118/78 (91) 95 Room Air 09/10/17 00:00 Room Air 09/09/17 22:50 36.6 60 18 114/61 (78) 96 Room Air Physical Exam General Appearance: no apparent distress ENT: pharynx normal Neck: no JVD Respiratory/Chest: lungs clear, no respiratory distress, no accessory muscle use, + decreased breath sounds (right base only) Cardiovascular: regular rate, rhythm, no gallop, + systolic murmur (2/6 RUSB/ LLSB) Abdomen: normal bowel sounds, non tender, soft, no organomegaly Extremities: no pedal edema Neurologic/Psychiatric: alert, oriented x 3 Skin: + pallor, + pertinent finding (former chest tube sites right chest clean , healed) Assessment and Plan 71yo male - 1. right sided complex loculated pleural effusion secondary to a previous fall (suspected) - status post decortication by Dr. Lancaster 08/25/17. all chest tubes discontinued (09/05/17) with stable cxr over the last few days ( no reaccumulation of pleural fluid, pneumothorax is small, etc). pH was very low on initial thoracentesis and there was concern for empyema; however he had no growth on the culture and cytology was negative for malignancy. Received 7 days of IV abx - this has been d/c. Pulmonary exam continues to remain stable; ok from CT surgery to d/c out of the hospital at this point with outpatient follow-up and chest x-rays periodically to ensure stable lungs. 2. microcytic anemia - s/p EGD by Dr. Cummins - nonspecific duodenitis with Caio's Glands hyperplasia - latter likely of no clinical significance. No obvious pathological signs of celiac. s/p IV iron this admission. CBC in am for stability. 3. recent a. fib/flutter - has not recurred. Cont xarelto for stroke prevention. Has had intermittent sinus bradycardia but not of significance. Cont amiodarone but decrease to 200mg once daily at this time. 4. CAD s/p stenting 03/2016 - stable. Cont BB, aspirin, statin. 5. chronic systolic CHF- EF 45% - compensated. Cont BB, lasix. Holding JACQUE due to low BP. 6. hyponatremia - resolved. 7. recent acute kidney injury - resolved. 8. depression - continue Zoloft. 9. constipation - resolved. 10. possible fundal adenomyosis on GB on US - repeat ultrasound in 3 months. 11. dysphagia - s/p EGD w/o pathology to explain symptoms. Speech recs - moist , regular diet. Dysphagia resolved. 12. GERD/duodenitis - PPI. 13. DVT proph - eliquis. daughter updated by phone dispo - Jyoti Bee tomorrow Continued [facility] stay due to: other (pneumothorax, recent chest tubes) Discharge planning: rehab hospital (vs SNF for rehab)
[2017-09-10 22:53] VITALS: BP_SYST 120; BP_DIAS 60; BP_DIAS 70; PULSE 51; TEMP 36.6; O2SAT 96; O2SAT 97
[2017-09-11] MEDS: APIXABAN 2.5 MG TAB PO SCH (05:51)
[2017-09-11 05:55] LABS: HEMATOCRIT 28.2 % (42-52); HEMOGLOBIN 8.7 g/dL (14.0-18.0); MEAN CORPUSCULAR HGB CONC 30.9 g/dl (32-36); MEAN PLATELET VOLUME 9.2 fL (7.4-10.4); PLATELET COUNT 309 K/uL (130-400); RED CELL DISTRIBUTION WIDTH CV 21.6 % (11.5-14.5); RED CELL DISTRIBUTION WIDTH SD 63.4 fL (36.4-46.3); WHITE BLOOD COUNT 5.98 K/uL (4.8-10.8)
[2017-09-11 06:23] LABS: CALCIUM 8.3 mg/dl (8.5-10.1); CREATININE 0.84 mg/dl (0.60-1.40); POTASSIUM 4.6 mmol/L (3.5-5.1)
[2017-09-11 07:05] VITALS: BP 118/56; PULSE 52; TEMP 36.4; O2SAT 99
--- NOTE | 2017-09-11 07:53 | DIAGNOSTIC IMAGING REPORT ---
CHEST 2 VIEWS ROUTINE CLINICAL HISTORY: 71 years-old Male presenting with recent pleural effusion/small pneumothorax. TECHNIQUE: PA and lateral views of the chest were obtained. COMPARISON: 09/07/2017. FINDINGS: Atherosclerosis of aortic arch. Cardiac silhouette enlarged. Persistent left basilar hazy opacity and bandlike opacity at the right lung base. Small bilateral pleural effusions unchanged. An air-fluid level at the right lung base is unchanged. Degenerative changes of the thoracic spine. Upper abdomen normal. IMPRESSION: 1. Persistent right basilar hydropneumothorax, which is likely loculated given the absence of right apical pneumothorax. 2. Left pleural effusion. 3. Bibasilar atelectasis. 4. No significant change. Electronically signed by: Alex Ross M.D. 09/11/2017 7:52 AM Dictated Date/Time: 09/11/2017 7:49 AM
[2017-09-11] MEDS: GUAIFENESIN 600 MG TABCR PO SCH (08:50)
[2017-09-11] MEDS: MULTIVITAMIN TAB PO SCH (08:51)
[2017-09-11] MEDS: PANTOprazole SOD 40 MG TAB PO SCH (08:51)
[2017-09-11] MEDS: SERTRALINE HCL 50 MG TAB PO SCH (08:51)
[2017-09-11] MEDS: ATORVASTATIN 40 MG TAB PO SCH (08:52)
[2017-09-11] MEDS: SENNA 8.6 MG TAB PO SCH (08:59)
[2017-09-11] MEDS: MAGNESIUM OXIDE 400 MG TAB PO SCH (08:59)
[2017-09-11] MEDS: ASPIRIN 81 MG ECTAB PO SCH (08:59)
[2017-09-11] MEDS: METOPROLOL SUCC 25MG EXT REL TAB PO SCH (09:00)
[2017-09-11] MEDS: FUROSEMIDE 40 MG TAB PO SCH (09:00)
[2017-09-11] MEDS: POLYETHYLENE (MIRALAX) 17 GM PACK PO SCH (09:00)
[2017-09-11] MEDS ORDERED: AMIODARONE 200 MG TAB PO SCH (09:00)
[2017-09-11 09:01] VITALS: BP 109/53; PULSE 53
[2017-09-11] MEDS: BISACODYL 5 MG TABEC PO SCH (09:11)
[2017-09-11] MEDS ORDERED: MGNO400 PO (09:55)
[2017-09-11] MEDS ORDERED: MRLP17 PO (09:55)
[2017-09-11] MEDS ORDERED: CRD200 PO (09:55)
[2017-09-11] MEDS ORDERED: METO25TA3 PO (09:55)
[2017-09-11] MEDS ORDERED: APIX1TAB3 PO (09:55)
--- NOTE | 2017-09-11 10:01 | Discharge Instructions ---
Discharge Instructions Date of Service Sep 11, 2017. Admission Reason for Admission: Right Pleural Effusion Discharge Discharge Diagnosis / Problem: right sided pleural effusion s/p decortication by Dr. Lancaster Discharge Goals Goal(s): Learn about illness, Diagnostic testing, Therapeutic intervention Activity Recommendations Activity Level: Up Ad [place], Assistance Required Therapies: Physical Therapy, Occupational Therapy Exercise/Sports Limitations: none Shower/Bathe: no limitations . Additional Information Patient informed of condition: Yes Advance Directives: Yes DNR: No Level of Care: Skilled Communicable Disease: No Prognosis: Improving Oxygen at (LPM): none Arredondo Catheter: No Instructions / Follow-Up Instructions / Follow-Up From Dr. Carter - Follow-up appointments - 1. Dr. Orlin Lancaster - Thoracic surgery - within [address]. [address] Willem Mata or one of his cardiology associates - within 3-4 weeks. 3. [facility] within 2-3 weeks; diagnosis - iron deficiency anemia. Current Hospital Diet Patient's current hospital diet: AHA Diet (Heart Healthy) Discharge Diet Recommended Diet: AHA Diet (Heart Healthy) (MOIST FOODS ONLY; AVOID DRY FOODS.) Fluid Restriction: 1500 ml (6 cups) Procedures Procedures Performed: Right thoracoscopy with decortication - Dr. Orlin Lancaster. EGD - Dr. Migel Cummins. Echocardiogram showing ejection fraction of 45-50%. Pending Studies Studies pending at discharge: yes List of pending studies: numerous pleural fluid cultures Physician Orders On Transfer Vital Signs: per routine Weigh: EVERY MORNING ON STANDING SCALE. IF WEIGHT INCREASES BY MORE THAN 2-3 POUNDS IN 1-2 DAYS PLEASE NOTIFY [employer] CHIEF RIGHT AWAY. Additional Orders: CBC, BMP, MAGNESIUM LEVEL IN 5 DAYS FOR STABILITY. POLST Discussion: Not Applicable Medical Emergencies . Who to Call and When: Medical Emergencies: If at any time you feel your situation is an emergency, please call 911 immediately. . Non-Emergent Contact Non-Emergency issues call your: Surgeon (Dr. Lancaster) Call Non-Emergent contact if: temperature is above 100.5, your pain is not controlled, your pain is worsening, your pain is unusual for you, your pain is concerning you, wound has increased drainage, wound has increased redness, wound has increased pain, you have any medication questions . . "Provider Documentation" section prepared by Gamaliel Carter. . Core Measure Problem Core Measures: None
[2017-09-11 10:16] VITALS: BP 109/53; PULSE 53; TEMP 36.4; O2SAT 99
--- NOTE | 2017-09-11 16:19 | Progress Note ---
Progress Note Date of Service Sep 11, 2017. Progress Note Mr. Rizo was seen today. He looks great. He denies pain in his incisions are all clean. Is on room air participating fully in therapy. In short he is improved tremendously since he has been here. He is going to be transferred to an extended care facility for rehabilitation. I will see him back in the office in a couple of weeks. His chest x-ray shows a loculated small pneumothorax but overall I think his chest x-ray looks quite good. We will see him back in the office in the near future.
--- NOTE | 2017-09-12 11:39 | Discharge Summary ---
Discharge Summary Date of Service Sep 12, 2017. Discharge Summary Admission Date: Aug 18, 2017 at 16:42 Discharge Date: Sep 11, 2017 Discharge Disposition: [facility] facility ([facility] ) Principal Diagnosis: right-sided complicated pleural effusion/hemothorax s/p decortication Problems/Secondary Diagnoses: 1. chronic systolic/diastolic CHF 2. mild-moderate 3. mild-moderate MR 4. chronic iron deficiency anemia - etiology uncertain 5. CAD 6. ischemic cardiomyopathy 7. dysphagia - resolved 8. HTN 9. hyperlipidemia 10. recent weight loss - etiology uncertain 11. paroxysmal atrial flutter 12. transient junctional bradycardia - did not recur 13. acute kidney injury - resolved 14. hyponatremia - chronic - due to diuretics? SIADH? 15. nonspecific duodenitis on EGD, etiology uncertain 16. possible fundal adenomyosis on gall bladder ultrasound - follow-up needed Procedures: 1. right-sided thoracentesis - Orlin Lancaster MD 2. unsuccessful DC cardioversion - Willem Mata MD 3. echocardiogram - * -- Conclusions -- * 1. Moderately dilated LV with mild concentric LVH. * 2. Mild LV dysfunction. LVEF 45%. Mild inferior hypokinesis, severe posterior hypokinesis. * 3. Grade II diastolic dysfunction. * 4. Normal RV size and function. * 5. Mild to moderate . Mild AI. * 6. Mild to moderate MR. * 7. No prior studies for comparison. 4. CT chest - IMPRESSION: 1. Right pleural effusion showing partial loculation and/or internal septations 2. Several air bubbles possibly indicative of prior attempted aspiration versus possibly of a developing empyema. 3. Small left pleural effusion diminished in volume from the prior study. 4. Bibasilar compressive atelectasis. 5. Underlying emphysematous change with mild chronic interstitial prominence. 5. RUQ u/s - IMPRESSION: 1. 1.2 cm area of hypoechoic nodularity involving the fundal gallbladder suggests fundal adenomyomatosis when correlated with comparison CT study 08/06/2017. A 3 month follow-up ultrasound is recommended to exclude a progressive abnormality. 2. 3 mm gallbladder polyp. 3. Mild gallbladder sludge without cholelithiasis or sonographic evidence of acute cholecystitis. 4. Hepatic steatosis with areas of probable fatty sparing adjacent to the jefry hepatis. 5. No biliary ductal dilation. 6. Small right pleural effusion. 6. transient pleurX catheter placement - Orlin Lancaster MD 7. Right thoracoscopy with extensive decortication of right upper, middle and lower lobes; chest tube placement - Orlin Lancaster MD 8. EGD - Dr. Migle Cummins (08/18/2017) - performed due to dysphagia. Findings: - Gastric mucosal variant. Biopsied. Normal duodenum - biopsied. Pathology results - Mild nonspecific chronic duodenitis with rina's gland hyperplasia. Stomach: no pathologic diagnosis seen. 9. IV iron infusions (venofer). Consultations: 1. thoracic surgery - Orlin Lancaster MD 2. cardiology - Willem Mata MD 3. gastroenterology - Migel Cummins MD 4. critical care - Ayden Chong DO 5. speech, PT, OT Medication Reconciliation New Medications: Amiodarone HCl (Amiodarone HCl) 200 Mg Tab 200 MG PO QAM, #30 TAB 11 Refills Apixaban (Eliquis) 5 Mg Tab 5 MG PO BID, #60 TAB 11 Refills Magnesium Oxide (Magnesium-Oxide) 400 Mg Tab 400 MG PO QAM, #30 TAB 2 Refills Polyethylene (Miralax) 17 Gm Pow 17 GM PO DAILY, #1 BTL 2 Refills Changed Medications: Metoprolol Succ (Toprol Xl) (Toprol-Xl) 25 Mg Tabcr 12.5 MG PO DAILY, #30 TAB 5 Refills (Changed from: Metoprolol Succ (Toprol Xl) ( Toprol-Xl ) 100 Mg Tabcr 100 Mg PO BID) Continued Medications: Acetaminophen (Tylenol) 325 Mg Tab 325 MG PO DAILY PRN for Pain or Fever, TAB Aspirin (Aspirin EC Low Dose) 81 Mg Ectab 81 MG PO DAILY for 30 Days Atorvastatin (Lipitor) 80 Mg Tab 80 MG PO DAILY, TAB Bimatoprost (Lumigan) 0.01 % Taniya 1 DROPS OP HS for 90 Days, #7.5 ML 3 Refills Cholecalciferol (Vitamin D3) 1,000 Inter.unit Tab 2000 UNITS PO QAM Ferrous Sulfate (Kp Ferrous Sulfate) 325 Mg Tab 1 TAB PO BID, TAB 3 Refills Furosemide (Lasix) 40 Mg Tab 40 MG PO QAM, TAB Multivitamin (Multivitamin) Tab 1 TAB PO QAM, TAB Pantoprazole (Protonix) 40 Mg Tab 40 MG PO QAM, #30 TAB Senna (Senokot) 8.6 Mg Tab 1 TAB PO QAM, TAB Sertraline (Zoloft) 50 Mg Tab 1.5 TAB PO QAM for 30 Days, #45 TAB 2 Refills Discontinued Medications: Benazepril (Lotensin) 20 Mg Tab 20 MG PO QAM, TAB Referrals At Discharge Follow up Referrals: Digital Asset Specialist Referral - Within a Month with Willem Mata MD Surgery Referral - Within 1 Week with Orlin Lancaster MD Discharge Exam Physical Exam: General Appearance: no apparent distress, + thin ENT: pharynx normal Neck: no JVD Respiratory/Chest: lungs clear, no respiratory distress, no accessory muscle use, + decreased breath sounds (minimal, right base) Cardiovascular: regular rate, rhythm, no gallop, normal peripheral pulses, + systolic murmur (2/6 RUSB) Abdomen / GI: normal bowel sounds, non tender, soft, no organomegaly Extremities: no pedal edema Neurologic/Psychiatric: alert, oriented x 3 Skin: + pallor Hospital Course HISTORY OF PRESENT ILLNESS: This is a 71yo male with history of ischemic cardiomyopathy with resulting chronic systolic/diastolic CHF, CAD s/p 3 DEZ in 03/2016, mild aortic stenosis, hypertension, hyperlipidemia, GERD, diverticulosis, depression, weight loss of 40 pounds in the past year, dysphagia, and iron deficiency anemia who was admitted after undergoing an outpatient right-sided thoracentesis performed by Dr. Lancaster. The pleural fluid was found to be bloody/purulent so he was directly admitted to the hospital for IV antibiotics for suspected empyema. The patient reported he had been having increased shortness of breath over the past few weeks. He reported pleuritic chest discomfort. Patient denied any fevers chills or sweats. Patient admitted to needing to sleep on his left side with his head elevated at night due to shortness of breath. He also reported dysphagia for solids. The patient also admitted to right upper quadrant abdominal pain and that it felt better whenever he layed on his left side. He did not notice that it worsened with specific types of food or depending on the timing of when he ate. The patient had a colonoscopy in December [address] Caldera that showed a noncancerous polyp that was removed. HOSPITAL COURSE: 1. right sided complex loculated pleural effusion - exudative - Following his initial thoracentesis there was concern that the pleural fluid findings were suggestive of empyema. He was placed on broad-spectrum IV antibiotics while awaiting cultures. All cultures (bacterial, fungal, etc) were ultimately negative, however. Fluid cytology was negative for cancer cells. He received 7 days of antibiotics then they were discontinued. A pleurX catheter was placed by Dr. Lancaster and MIST-2 protocol was initiated. The patient did poorly with the pleurX as he did not tolerate the protocol well. After considerable discussion Dr. Lancaster recommended thoracoscopy with decortication in ag of the pleurX/MIST-2 protocol. This procedure was delayed until 08/25/17 due to the development of rapid a. flutter. See below for details regarding the a. flutter. The patient did undergo successful decortication by Dr. Lancaster on 08/25/17. He remained in ICU post-op for 48 hours. Chest tubes were discontinued on 09/05/17. Serial chest x-rays following chest tube discontinuation remained stable with no reaccumulation of pleural fluid, no increase in size of a small right basilar pneumothorax, etc. Supplemental NC O2 was weaned off. Ultimately it was determined that the patient's complex pleural effusion was likely a HEMOTHORAX THAT HE HAD DEVELOPED AFTER SUFFERING A FALL WHILE FISHING EARLIER IN 2016. Chest x-ray on day of discharge (09/11/17) again was stable. Dr. Lancaster plans to see the patient in follow-up within 1-2 weeks of discharge. The patient did NOT require oxygen at time of discharge. 2. paroxysmal a. flutter - the patient developed such on 08/22/17 which led to the initial cancellation of his thoracoscopy procedure by Dr. Lancaster. Attempts at DC cardioversion by cardiology were unsuccessful. He was subsequently admitted to the ICU and placed on amiodarone and systemic heparin. He ultimately chemically cardioverted back to R. Cardiology continued to follow him during his stay. There was transient junctional bradycardia noted on telemetry at times but he was asymptomatic from such. After all procedures were completed he was transitioned to eliquis for anticoagulation. He will remain on amiodarone 200mg once daily and low-dose beta salbador. Follow-up with Dr. Willem Mata is recommended for 3-4 weeks post- discharge. Fortunately the patient did NOT suffer from decompensated CHF during his stay. 3. microcytic anemia and dysphagia - s/p EGD by Dr. Cummins - no obvious cause for his anemia/dysphagia was identified. Biopsies of the gastric body were negative. Duodenal biopsy showed nonspecific duodenitis with Rina's Glands hyperplasia. No obvious pathological signs of celiac were seen. He received several infusions of IV venofer while here. Discharge hemoglobin was 8.7. He never needed PRBCs while hospitalized. At discharge the patient was having NO dysphagia or feeding intolerance. In light of his recent weight loss and iron deficiency close follow-up is advised for additional work-up. Occult malignancy is a concern. He had been followed by the [facility] cancer center in the past for he low iron and he should follow-up with them after discharge. Speech therapy recommended a MOIST, regular diet while hospitalized. 4. CAD - he had no ischemic symptoms while hospitalized. He will remain on low -dose beta salbador, aspirin, statin, etc after discharge. 5. chronic systolic CHF- EF 45% - he remained compensated during his stay. He will remain on beta salbador and lasix. His JACQUE was held at discharge due to low -normal blood pressures. Hopefully this can be resumed when he follows up with Dr. Mata in the cardiology clinic. 6. possible fundal adenomyosis on gall bladder ultrasound - this ultrasound was obtained due to the reported RUQ abdominal pain. I suspect that the pain was probably from his right-sided pleural effusion. [id number] a repeat ultrasound is recommended in 3 months as per radiology. 7. hyponatremia - this appears chronic, going back to at least September of 2016. I am uncertain if this is due to chronic diuretic usage or SIADH. Discharge sodium level was 132. Close surveillance of the sodium is recommended. If this represents SIADH I would be concerned about occult malignancy. See discussions above. All other medical problems remained stable during this protracted stay. He will transfer to [facility] for rehab at time of discharge. Total Time Spent: Greater than 30 minutes This includes examination of the patient, discharge planning, medication reconciliation, and communication with other providers. Discharge Instructions Please refer to the electronic Patient Visit Report (Discharge Instructions) for additional information. Follow-Up 1. Dr. Orlin Lancaster - Thoracic surgery - within [address] Willem Mata or one of his cardiology associates - within 3-4 weeks. 3. [facility] within 2-3 weeks for iron deficiency anemia. Additional Copies To Rohit Padilla; Izabel Rhoades D.O.; Alex Marshall M.D.; Migel Cummins M.D.; Willem Mata MD; Orlin Lancaster MD
--- NOTE | 2017-09-16 14:17 | OPERATIVE REPORT ---
DATE OF OPERATION: 08/19/2017 PREOPERATIVE DIAGNOSIS: Complicated right pleural effusion. POSTOPERATIVE DIAGNOSIS: Same. PROCEDURE: Ultrasound guided insertion of right PleurX catheter. ANESTHESIA: Local. SURGEON: Dr. Lancaster. CHIP SEPARATOR: GRETEL Whitmore (MrGhulam Nicolas was present for the entirety of the case and was instrumental in first assisting). PROCEDURE: The patient was admitted to the medical service after I performed a thoracentesis yesterday and he was found to have a low pH. I was concerned about an empyema. The effusion was also very complicated. After appropriate consent had been obtained and we discussed this thoroughly, the patient was placed in left lateral decubitus position, his right chest prepped and draped in usual sterile fashion. A good window was seen into his pleural cavity. He was prepped and draped in usual sterile fashion. An approximately the eighth interspace posterior axillary line, a skin wheal was raised 25 gauge needle, 1% Xylocaine. A large bore needle was used to anesthetize the deeper tissues and pleura. I had free-flowing rust-colored fluid obtained and a guidewire was inserted through the needle and needle removed. This insertion site was enlarged to 1 cm. Approximately 12 cm anterior to this, another skin wheal was raised 25 gauge needle, 1% Xylocaine and 1 cm incision was made. A long needle was used to anesthetize subcutaneous tissues between the 2 incisions and then a tunnel was attached to the PleurX catheter and dragged from the anterior to the posterior incision without difficulty and the tunneler removed. Introducer sheath with the inner cannula was slid over the guidewire and inner cannula and guidewire removed and then the PleurX catheter was slid through this sheath, which was peeled away. Two separate sutures used to close the incision posteriorly and a suture was used to anchor the catheter to the patient's skin anteriorly. Approximately 250 mL of a rust-colored fluid was drained; however, he had a tremendous amount of pain with this. We stopped at this point and will get him ready for his MIST-2 protocol. I attest to the content of the Intraoperative Record and any orders documented therein. Any exception s are noted below.
== END 2017-09-11 11:32 | DRG 164 ==
LOC: C.ACU 12:50 → ENRESERV 15:39 → C.MSW 16:42 → CANRESERV 08-22 12:52 → ENRESERV 08-22 12:52 → C.MSICU 08-22 13:58 → ENRESERV 08-23 13:10 → CANRESERV 08-23 13:10 → ENRESERV 08-23 14:10 → C.2T 08-23 14:55 → ENRESERV 08-25 16:01 → C.MSICU 08-25 16:17 → C.2T 08-29 16:41 → EDBEDREQSVC 08-29 17:22 → EDBEDREQ 08-29 17:22 → ENRESERV 08-29 18:27 → CANRESERV 08-29 18:27 → CANBEDREQ 08-29 19:07 → C.2T 09-01 16:55 → ENRESERV 09-08 13:16 → C.MSW 09-08 15:00
PROVIDERS: ADMIT Family Medicine; ATTEND Internal Medicine
PROC: 0W993ZX Drainage of Right Pleural Cavity, Percutaneous Approach, Diagnostic (ICD-10-PCS; 2017-08-18)
PROC: 0W9930Z Drainage of Right Pleural Cavity with Drainage Device, Percutaneous Approach (ICD-10-PCS; 2017-08-19)
PROC: 0DB98ZX Excision of Duodenum, Via Natural or Artificial Opening Endoscopic, Diagnostic (ICD-10-PCS; 2017-08-20)
PROC: 0DB68ZX Excision of Stomach, Via Natural or Artificial Opening Endoscopic, Diagnostic (ICD-10-PCS; 2017-08-20)
PROC: 5A2204Z Restoration of Cardiac Rhythm, Single (ICD-10-PCS; 2017-08-22)
PROC: 0BBN4ZX Excision of Right Pleura, Percutaneous Endoscopic Approach, Diagnostic (ICD-10-PCS; principal; 2017-08-25 08:45)
PROC: 0BNK4ZZ Release Right Lung, Percutaneous Endoscopic Approach (ICD-10-PCS; principal; 2017-08-25 08:45)
PROC: 0B9N30Z Drainage of Right Pleura with Drainage Device, Percutaneous Approach (ICD-10-PCS; principal; 2017-08-25 08:45)
PROC: 0BPQX0Z Removal of Drainage Device from Pleura, External Approach (ICD-10-PCS; principal; 2017-08-25 08:45)
DX: S27.1XXA Traumatic hemothorax, initial encounter (principal); J91.8 Pleural effusion in other conditions classified elsewhere; I48.92 Unspecified atrial flutter; I47.1 Supraventricular tachycardia; N17.9 Acute kidney failure, unspecified; I50.22 Chronic systolic (congestive) heart failure; E87.1 Hypo-osmolality and hyponatremia; I13.0 Hypertensive heart and chronic kidney disease with heart failure and stage 1 through stage 4 chronic kidney disease, or unspecified chronic kidney disease; K29.80 Duodenitis without bleeding; R63.4 Abnormal weight loss; R93.2 Abnormal findings on diagnostic imaging of liver and biliary tract; K82.4 Cholesterolosis of gallbladder; R13.10 Dysphagia, unspecified; K59.00 Constipation, unspecified; I95.9 Hypotension, unspecified; E83.39 Other disorders of phosphorus metabolism; I25.5 Ischemic cardiomyopathy; D50.9 Iron deficiency anemia, unspecified; J44.9 Chronic obstructive pulmonary disease, unspecified; I25.10 Atherosclerotic heart disease of native coronary artery without angina pectoris; E78.5 Hyperlipidemia, unspecified; E78.1 Pure hyperglyceridemia; K21.9 Gastro-esophageal reflux disease without esophagitis; F32.9 Major depressive disorder, single episode, unspecified; Z51.81 Encounter for therapeutic drug level monitoring; Z79.899 Other long term (current) drug therapy; Z95.5 Presence of coronary angioplasty implant and graft; Z87.891 Personal history of nicotine dependence; Z83.3 Family history of diabetes mellitus; W19.XXXA Unspecified fall, initial encounter; Y93.79 Activity, other specified sports and athletics; Y99.8 Other external cause status

== ENCOUNTER 2017-09-15 21:34 | Emergency (ER) | payer BC ==
[~2017-09-15] VITALS: Ht 175.3 cm; Wt 70.8 kg
[~2017-09-15 21:34] MED LIST changes: +APIX1TAB3 PO; +ASPEC81 PO; -ASPI81TA28 PO; -BENA20TA14 PO; +CRD200 PO; -METO100T44 PO; +METO25TA3 PO; +MGNO400 PO; +MRLP17 PO
[2017-09-15 21:41] VITALS: Ht 175.3 cm; Wt 70.8 kg
--- NOTE | 2017-09-15 21:58 | EMERGENCY ROOM VISIT NOTE ---
History Report prepared by Simba: Ray Rivera Under the Supervision of: Dr. Emilee Anglin M.D. First contact with patient: 21:44 Chief Complaint: NOSE BLEED (MINOR) Stated Complaint: NOSE BLEED History of Present Illness The patient is a 71 year old male who presents to the Emergency Room with complaints of an intermittent nose bleed beginning this morning. The patient states he had surgery last week, and he is currently in [facility]. He reports he could not control the nosebleed. The patient notes he believes his nose is still bleeding, but he is not bleeding. He denies any other symptoms. The patient's temperature in the room was 36.5 degrees C. Source of History: patient Onset: this morning Position: nose Quality: other (bleeding) Timing: intermittent Note: Denies any other symptoms. Review of Systems See HPI for pertinent positives & negatives. A total of 10 systems reviewed and were otherwise negative. Past Medical & Surgical Medical Problems: (1) Acute exacerbation of CHF (congestive heart failure) (2) Atrial fibrillation (3) CAD (coronary artery disease) (4) CAD in chitina artery (5) Dilated cardiomyopathy (6) Dysphagia (7) Elevated alkaline phosphatase level (8) Empyema lung (9) Empyema, right (10) HLD (hyperlipidemia) (11) Hypertension (12) Hypertriglyceridemia (13) Pleural effusion, right (14) Weight loss Surgical Problems: (1) H/O heart artery stent (2) S/P right coronary artery (RCA) stent placement Family History Cancer Diabetes mellitus Heart disease Social History Smoking Status: Never Smoker Drug Use: none Marital Status: Current/Historical Medications Scheduled Amiodarone Hcl (Cordarone), 200 MG PO DAILY Apixaban (Eliquis), 5 MG PO BID Aspirin (Aspirin Low Dose), 81 MG PO DAILY Atorvastatin (Lipitor), 80 MG PO DAILY Bimatoprost (Lumigan), 1 DROPS OP HS Cholecalciferol (Vitamin D3), 2,000 UNITS PO QAM Ferrous Sulfate (Kp Ferrous Sulfate), 1 TAB PO BID Furosemide (Lasix), 40 MG PO QAM Magnesium Oxide (Mag-Ox), 400 MG PO QAM Metoprolol Succ (Toprol Xl) (Toprol-Xl), 12.5 MG PO DAILY Multivitamin (Multivitamin), 1 TAB PO QAM Pantoprazole (Protonix), 40 MG PO QAM Polyethylene (Miralax), 17 GM PO DAILY Senna (Senokot), 1 TAB PO QAM Sertraline (Zoloft), 1.5 TAB PO QAM Scheduled PRN Acetaminophen (Tylenol), 650 MG PO Q6 PRN for Pain or Fever Allergies Coded Allergies: No Known Allergies (Verified , 09/15/17) Physical Exam Vital Signs Date Time Temp Pulse Resp B/P (MAP) Pulse Ox O2 Delivery O2 Flow Rate FiO2 09/16/17 01:51 36.4 60 20 118/56 95 09/16/17 01:13 60 09/16/17 00:55 59 20 118/56 09/15/17 23:58 59 22 126/58 09/15/17 23:49 55 20 110/60 09/15/17 23:29 36.4 56 22 110/59 95 Room Air 09/15/17 23:28 36.4 56 22 110/59 09/15/17 22:52 55 20 110/59 95 Room Air 09/15/17 21:48 60 09/15/17 21:41 61 22 133/60 98 Room Air Physical Exam Vital signs reviewed. General: Well-appearing 71 year old male, in no significant distress. HEENT: No scleral icterus, PERRLA, neck supple. Atraumatic. Right nares has dried blood. Old blood in the posterior oropharynx. No active bleeding. Cardiovascular: Regular rate and rhythm, with a systolic ejection murmur. Pulmonary: Clear to auscultation bilaterally, normal work of breathing. Abdomen: Soft, nontender, nondistended, positive bowel sounds. Musculoskeletal: Atraumatic, no peripheral edema. Neurologic: Patient awake alert and oriented x 3 Skin: Warm, dry, no rash Medical Decision & Procedures Laboratory Results 09/15/17 22:20 Red Blood Count 3.71, Mean Corpuscular Volume 80.9, Mean Corpuscular Hemoglobin 24.8, Mean Corpuscular Hemoglobin Concent 30.7, Mean Platelet Volume 9.3, Neutrophils (%) (Auto) 74.9, Lymphocytes (%) (Auto) 14.1, Monocytes (%) (Auto) 7.2, Eosinophils (%) (Auto) 3.1, Basophils (%) (Auto) 0.5, Neutrophils # (Auto) 4.15, Lymphocytes # (Auto) 0.78, Monocytes # (Auto) 0.40, Eosinophils # (Auto) 0.17, Basophils # (Auto) 0.03 09/15/17 22:20 Test 09/15/17 22:20 White Blood Count 5.54 K/uL (4.8-10.8) Red Blood Count 3.71 M/uL (4.7-6.1) Hemoglobin 9.2 g/dL (14.0-18.0) Hematocrit 30.0 % (42-52) Mean Corpuscular Volume 80.9 fL (80-100) Mean Corpuscular Hemoglobin 24.8 pg (25-34) Mean Corpuscular Hemoglobin Concent 30.7 g/dl (32-36) Platelet Count 298 K/uL (130-400) Mean Platelet Volume 9.3 fL (7.4-10.4) Neutrophils (%) (Auto) 74.9 % Lymphocytes (%) (Auto) 14.1 % Monocytes (%) (Auto) 7.2 % Eosinophils (%) (Auto) 3.1 % Basophils (%) (Auto) 0.5 % Neutrophils # (Auto) 4.15 K/uL (1.4-6.5) Lymphocytes # (Auto) 0.78 K/uL (1.2-3.4) Monocytes # (Auto) 0.40 K/uL (0.11-0.59) Eosinophils # (Auto) 0.17 K/uL (0-0.5) Basophils # (Auto) 0.03 K/uL (0-0.2) RDW Standard Deviation 65.3 fL (36.4-46.3) RDW Coefficient of Variation 21.8 % (11.5-14.5) Immature Granulocyte % (Auto) 0.2 % Immature Granulocyte # (Auto) 0.01 K/uL (0.00-0.02) Hypochromasia PRESENT Anisocytosis PRESENT Anion Gap 9.0 mmol/L (3-11) Est Creatinine Clear Calc Drug Dose 72.3 ml/min Estimated GFR () 96.6 Estimated GFR (Non- 83.3 BUN/Creatinine Ratio 17.9 (10-20) Calcium Level 8.7 mg/dl (8.5-10.1) Total Bilirubin 0.3 mg/dl (0.2-1) Direct Bilirubin < 0.1 mg/dl (0-0.2) Aspartate Amino Transf (AST/SGOT) 34 U/L (15-37) Alanine Aminotransferase (ALT/SGPT) 39 U/L (12-78) Alkaline Phosphatase 199 U/L (45-117) Total Protein 6.3 gm/dl (6.4-8.2) Albumin 2.4 gm/dl (3.4-5.0) Laboratory results per my review. ED Course 2143: Past medical records reviewed. The patient was evaluated in room B03A. A complete history and physical examination was performed. 0031: Upon reevaluation, the patient appeared to have improvement of his symptoms. I discussed findings with him. He verbalized agreement of the treatment plan. The patient will be discharged to [facility] when his transportation arrives. Medical Decision Differential diagnosis: Etiologies such as anterior epistaxis, coagulopathy, traumatic injury, fracture , septal hematoma, posterior epistaxis as well as other pathologies were entertained. This patient was evaluated and appeared to be in no significant distress. IV access was obtained and laboratory work was drawn. Patient's laboratory work reveals an anemia but stable H&H. Patient was observed in the emergency department with no further bleeding. He was advised to not blow his nose for at least 2 days. He will use a saline nasal spray to keep the mucosa moist. Patient will stop his aspirin therapy for 3 days but continue his Xarelto. He will follow-up with his physician for reevaluation and return to the ER for worsening of symptoms or any medical concerns. Medication Reconcilliation Current Medication List: was personally reviewed by me Blood Pressure Screening Patient's blood pressure: Normal blood pressure Blood pressure disposition: Did not require urgent referral Impression Primary Impression: Epistaxis, recurrent Additional Impression: On continuous oral anticoagulation Scribe Attestation The scribe's documentation has been prepared under my direction and personally reviewed by me in its entirety. I confirm that the note above accurately reflects all work, treatment, procedures, and medical decision making performed by me. Departure Information Dispostion Home / Self-Care Referrals Alex Marshall M.D. (PCP) Forms HOME CARE DOCUMENTATION FORM, IMPORTANT VISIT INFORMATION, WORK / SCHOOL INSTRUCTIONS Patient Instructions [facility] Additional Instructions Diagnosis: Epistaxis, anticoagulation therapy Please stop your aspirin for at least 3 days. Contact your physician for reevaluation and discussion of your anticoagulation/ aspirin therapy. Avoid scratching, rubbing, picking, or blowing your nose. The stock digger your nasal passages the more likely they are to bleed. The following two products are available [id number] at most drug stores/pharmacies: [place] nasal spray or similar generic saline spray to keep the nose moist 3 to 4 times a day or Apply [place] gel 2-3 times daily to the nostrils to keep them moist. If bleeding recurs apply direct pressure for an uninterrupted 20 minutes. On and off pressure is much less effective because it will disturb the clots that are forming. If the bleeding is still a problem after 20 minutes or is so heavy despite the pressure return to the emergency department. Follow-up with your primary care physician in 2 to 3 days for a recheck of your current condition if problems persist. Return to the emergency department for worsening of symptoms or any medical concerns. Problem Qualifiers
[2017-09-15 22:48] LABS: BASO % 0.5 %; BASO ABS # 0.03 K/uL (0-0.2); EOS % 3.1 %; EOS ABS # 0.17 K/uL (0-0.5); HEMOGLOBIN 9.2 g/dL (14.0-18.0); IG# 0.01 K/uL (0.00-0.02); LYMPH % 14.1 %; LYMPH ABS # 0.78 K/uL (1.2-3.4); MEAN CELL VOLUME 80.9 fL (80-100); MEAN CORPUSCULAR HEMOGLOBIN 24.8 pg (25-34); MEAN CORPUSCULAR HGB CONC 30.7 g/dl (32-36); MEAN PLATELET VOLUME 9.3 fL (7.4-10.4); MONO % 7.2 %; NEUT % 74.9 %; NEUT ABS # 4.15 K/uL (1.4-6.5); PLATELET COUNT 298 K/uL (130-400); RED CELL DISTRIBUTION WIDTH CV 21.8 % (11.5-14.5); RED CELL DISTRIBUTION WIDTH SD 65.3 fL (36.4-46.3); WHITE BLOOD COUNT 5.54 K/uL (4.8-10.8)
[2017-09-15 23:14] LABS: ALBUMIN 2.4 gm/dl (3.4-5.0); ALT/SGPT 39 U/L (12-78); BLOOD UREA NITROGEN 16 mg/dl (7-18); CALCIUM 8.7 mg/dl (8.5-10.1); CARBON DIOXIDE 29 mmol/L (21-32); CREATININE 0.91 mg/dl (0.60-1.40); GLUCOSE 116 mg/dl (70-99); POTASSIUM 4.3 mmol/L (3.5-5.1); SODIUM 133 mmol/L (136-145)
[2017-09-15 23:17] LABS: ALKALINE PHOSPHATASE 199 U/L (45-117); AST/SGOT 34 U/L (15-37); TOTAL PROTEIN 6.3 gm/dl (6.4-8.2)
[2017-09-15] MEDS ORDERED: AMIO200T4 PO (23:49)
[2017-09-15] MEDS ORDERED: APIX1TAB3 PO (23:50)
[2017-09-15] MEDS ORDERED: ASPI1TAB48 PO (23:51)
[2017-09-15] MEDS ORDERED: MAGN400T6 PO (23:53)
[2017-09-15] MEDS ORDERED: METO25TA3 PO (23:54)
[2017-09-16 01:51] VITALS: BP 118/56; PULSE 60; TEMP 36.4; O2SAT 95
== END 2017-09-16 01:51 | disposition home or self-care (01) ==
LOC: EDBD 21:34 → C.EDB 21:36
DX: R04.0 Epistaxis (principal); I50.9 Heart failure, unspecified; I48.91 Unspecified atrial fibrillation; I25.10 Atherosclerotic heart disease of native coronary artery without angina pectoris; J86.9 Pyothorax without fistula; E78.5 Hyperlipidemia, unspecified; I10 Essential (primary) hypertension; Z83.3 Family history of diabetes mellitus; Z82.49 Family history of ischemic heart disease and other diseases of the circulatory system; Z79.82 Long term (current) use of aspirin

== ENCOUNTER 2017-10-12 13:35 | Inpatient (IN) | payer BC, OTHER ==
[~2017-10-12] VITALS: Ht 175.3 cm; Wt 68.5 kg
[2017-10-12] VITALS (22 sets, daily range): BP systolic 71–93; BP diastolic 44–55; PULSE 72–84; TEMP 36.4–36.8; O2SAT 93–100; BMI 22.2
[~2017-10-12 13:35] MED LIST changes: +AMIO200T4 PO; -ASPEC81 PO; +ASPI1TAB48 PO; -CRD200 PO; +MAGN400T6 PO; -MGNO400 PO
[2017-10-12] MEDS ORDERED: SODIUM CHLORIDE 0.9% 1000ML 1,000 ML IV STA (13:51)
--- NOTE | 2017-10-12 14:09 | DIAGNOSTIC IMAGING REPORT ---
CHEST ONE VIEW PORTABLE HISTORY: 71 years-old Male h/o R hydroptx follow-up study in a patient with right hydropneumothorax COMPARISON: Chest radiograph 09/11/2017 TECHNIQUE: Portable AP view of the chest FINDINGS: Cardiac silhouette is again mildly enlarged. Atherosclerosis of the aorta. Decreased size of right-sided hydropneumothorax now with approximately 11 mm pleural separation at the level the right lung base. Small left pleural effusion is also slightly decreased in size from comparison. Linear subsegmental right midlung and bibasilar opacities persist suggesting areas of atelectasis/scarring. No overt pulmonary edema. Degenerative changes are seen within the spine and shoulders. IMPRESSION: 1. Decreased size of right-sided hydropneumothorax. 2. Decreased size of small left pleural effusion with persistent right midlung and bibasilar opacities suggesting atelectasis or scarring. 3. Cardiomegaly without overt pulmonary edema. The above report was generated using voice recognition software. It may contain grammatical, syntax or spelling errors. Electronically signed by: Nikos Alexandra M.D. 10/12/2017 2:08 PM Dictated Date/Time: 10/12/2017 2:06 PM
[2017-10-12 14:10] LABS: HEMATOCRIT 15.1 % (42-52); HEMOGLOBIN 4.3 g/dL (14.0-18.0); MEAN CELL VOLUME 89.9 fL (80-100); MEAN CORPUSCULAR HEMOGLOBIN 25.6 pg (25-34); MEAN CORPUSCULAR HGB CONC 28.5 g/dl (32-36); PLATELET COUNT 361 K/uL (130-400); RED CELL DISTRIBUTION WIDTH CV 22.7 % (11.5-14.5); RED CELL DISTRIBUTION WIDTH SD 72.2 fL (36.4-46.3); WHITE BLOOD COUNT 9.26 K/uL (4.8-10.8)
[2017-10-12 14:14] LABS: CALCIUM 8.6 mg/dl (8.5-10.1); CREATININE 1.41 mg/dl (0.60-1.40); POTASSIUM 4.2 mmol/L (3.5-5.1)
[2017-10-12 14:15] LABS: INR 1.4 (0.9-1.1); PTT PATIENT 21.7 SECONDS (21.0-31.0)
[2017-10-12 14:26] LABS: BASO % 0.2 %; BASO ABS # 0.02 K/uL (0-0.2); EOS % 0.3 %; EOS ABS # 0.03 K/uL (0-0.5); IG# 0.03 K/uL (0.00-0.02); LYMPH % 10.7 %; LYMPH ABS # 0.99 K/uL (1.2-3.4); MONO % 4.4 %; MONO ABS # 0.41 K/uL (0.11-0.59); NEUT % 84.1 %; NEUT ABS # 7.78 K/uL (1.4-6.5)
[2017-10-12] MEDS ORDERED: PANTOprazole INJ 80 MG in DEXTROSE 5% 100ML 100 ML IV STA (14:29)
[2017-10-12] MEDS ORDERED: ACETAMINOPHEN 325 MG TAB PO STA (14:29)
[2017-10-12] MEDS ORDERED: ONDANSETRON INJ 2 MG/ML 2 ML VIAL IV PRN (15:00)
[2017-10-12] MEDS ORDERED: MoRPHine SULFATE 2 MG/ML CARP IV PRN (15:00)
[2017-10-12] MEDS ORDERED: ACETAMINOPHEN 325 MG TAB PO PRN (15:00)
[2017-10-12] MEDS ORDERED: POLYETHYLENE (MIRALAX) 17 GM PACK PO PRN (15:00)
[2017-10-12] MEDS ORDERED: MAGNESIUM HYDROXIDE SUSP 30 ML UDC PO PRN (15:00)
[2017-10-12] MEDS ORDERED: ALUMINUM/MAGNESIUM/SIMETH (MAALOX MAX) 30 ML UDC PO PRN (15:00)
[2017-10-12] MEDS ORDERED: NITROGLYCERIN 0.4 MG SL PER TAB CHARGE SL PRN (15:00)
--- NOTE | 2017-10-12 15:28 | History and Physical ---
History & Physical Date & Time of Service: Oct 12, 2017 at 15:09 Chief Complaint: Breathing Diff. Primary Care Physician: Alex Marshall M.D. History of Present Illness Source: patient, clinic records, hospital records Patient is a pleasant 71 y/o male, with PMHx of chronic iron deficient anemia, chronic duodenitis w/ Caio's gland hyperplasia on EGD in , h/o R complex pleural effusion, chronic systolic CHF, dilated cardiomyopathy w/ severe LV dysfunction w/ EF of 45 %, CAD s/p PCI, paroxysmal a.fib on Eliquis, SVT, HTN, HLD, depression, and GERD who presented to the ED because of progressively SOB x a few days. In ED, patient was found to be hypotensive at 80 /41 and hgb of 4.3. ED physician ordered 2 u PRBCs and 2 u FFP. Patient denies any melena/BRBPR. However, ED notes guaiac positive stools and melanous. Patient currently lying flat in bed. Denies any other complaints. Alert/ oriented x3. Poor historian as far as past medical history. States he has not taken Eliquis in 2 days. Patient denies any fever, chills, sweats, lightheadedness, dizziness, vision changes, CP, palpitations, edema, wheezing, cough, abdominal pain, nausea, vomiting, diarrhea, urinary symptoms, melena, numbness/tingling, weakness, muscle/joint pain, anxiety/depression, active bleeding, or new skin discoloration/changes. Past Medical/Surgical History Medical Problems: chronic iron deficient anemia chronic duodenitis w/ Caio's gland hyperplasia noted on EGD in h/o R complex pleural effusion chronic systolic CHF dilated cardiomyopathy w/ severe LV dysfunction w/ EF of 45 % CAD s/p PCI paroxysmal a.fib on Eliquis SVT HTN HLD depression GERD Surgical Problems: (1) H/O heart artery stent (2) S/P right coronary artery (RCA) stent placement Family History Cancer Diabetes mellitus Heart disease Social History Smoking Status: Former Smoker Drug Use: none Marital Status: Housing status: lives alone Allergies Coded Allergies: No Known Allergies (Verified , 09/15/17) Home Medications Scheduled Amiodarone Hcl (Cordarone), 200 MG PO DAILY Apixaban (Eliquis), 5 MG PO BID Aspirin (Aspirin Low Dose), 81 MG PO DAILY Atorvastatin (Lipitor), 80 MG PO DAILY Bimatoprost (Lumigan), 1 DROPS OP HS Cholecalciferol (Vitamin D3), 2,000 UNITS PO QAM Ferrous Sulfate (Kp Ferrous Sulfate), 1 TAB PO BID Furosemide (Lasix), 40 MG PO QAM Magnesium Oxide (Mag-Ox), 400 MG PO QAM Metoprolol Succ (Toprol Xl) (Toprol-Xl), 12.5 MG PO DAILY Multivitamin (Multivitamin), 1 TAB PO QAM Pantoprazole (Protonix), 40 MG PO QAM Polyethylene (Miralax), 17 GM PO DAILY Senna (Senokot), 1 TAB PO QAM Sertraline (Zoloft), 1.5 TAB PO QAM Scheduled PRN Acetaminophen (Tylenol), 650 MG PO Q6 PRN for Pain or Fever Physical Exam Vital Signs Date Time Temp Pulse Resp B/P (MAP) Pulse Ox O2 Delivery O2 Flow Rate FiO2 10/12/17 14:57 36.4 77 20 71/47 100 10/12/17 14:09 77 10/12/17 13:35 97 Room Air 10/12/17 13:35 97 Room Air 10/12/17 13:35 36.4 83 22 80/41 97 Room Air 10/12/17 13:35 97 Room Air General Appearance: no apparent distress Head: normocephalic, atraumatic Eyes: normal inspection, PERRL ENT: hearing grossly normal Neck: supple Respiratory/Chest: lungs clear, no respiratory distress, no accessory muscle use Cardiovascular: regular rate, rhythm, + systolic murmur Abdomen/GI: normal bowel sounds, non tender, soft Back: normal inspection Extremities/Musculoskelatal: no calf tenderness, no pedal edema Neurologic/Psych: alert, oriented x 3, + pertinent finding (fatigued appearing ) Skin: warm/dry, no rash, + pallor Diagnostics Laboratory Results Results Past 24 Hours Test 10/12/17 13:11 Range/Units White Blood Count 9.26 4.8-10.8 K/uL Red Blood Count 1.68 4.7-6.1 M/uL Hemoglobin 4.3 14.0-18.0 g/dL Hematocrit 15.1 42-52 % Mean Corpuscular Volume 89.9 80-100 fL Mean Corpuscular Hemoglobin 25.6 25-34 pg Mean Corpuscular Hemoglobin Concent 28.5 32-36 g/dl Platelet Count 361 130-400 K/uL Mean Platelet Volume 9.0 7.4-10.4 fL Neutrophils (%) (Auto) 84.1 % Lymphocytes (%) (Auto) 10.7 % Monocytes (%) (Auto) 4.4 % Eosinophils (%) (Auto) 0.3 % Basophils (%) (Auto) 0.2 % Neutrophils # (Auto) 7.78 1.4-6.5 K/uL Lymphocytes # (Auto) 0.99 1.2-3.4 K/uL Monocytes # (Auto) 0.41 0.11-0.59 K/uL Eosinophils # (Auto) 0.03 0-0.5 K/uL Basophils # (Auto) 0.02 0-0.2 K/uL RDW Standard Deviation 72.2 36.4-46.3 fL RDW Coefficient of Variation 22.7 11.5-14.5 % Immature Granulocyte % (Auto) 0.3 % Immature Granulocyte # (Auto) 0.03 0.00-0.02 K/uL Polychromasia 1+ Hypochromasia PRESENT Anisocytosis PRESENT Tear Drop Cells 1+ Prothrombin Time 15.0 9.0-12.0 SECONDS Prothromb Time International Ratio 1.4 0.9-1.1 Activated Partial Thromboplast Time 21.7 21.0-31.0 SECONDS Partial Thromboplastin Ratio 0.8 Sodium Level 132 136-145 mmol/L Potassium Level 4.2 3.5-5.1 mmol/L Chloride Level 96 98-107 mmol/L Carbon Dioxide Level 19 21-32 mmol/L Anion Gap 17.0 3-11 mmol/L Blood Urea Nitrogen 39 7-18 mg/dl Creatinine 1.41 0.60-1.40 mg/dl Est Creatinine Clear Calc Drug Dose 45.0 ml/min Estimated GFR () 56.9 Estimated GFR (Non- 49.1 BUN/Creatinine Ratio 27.4 10-20 Random Glucose 220 70-99 mg/dl Calcium Level 8.6 8.5-10.1 mg/dl Microbiology Results 10/12/17 Blood Culture, Received Pending 10/12/17 Blood Culture, Received Pending Diagnostic Radiology CHEST ONE VIEW PORTABLE HISTORY: 71 years-old Male h/o R hydroptx follow-up study in a patient with right hydropneumothorax COMPARISON: Chest radiograph 09/11/2017 TECHNIQUE: Portable AP view of the chest FINDINGS: Cardiac silhouette is again mildly enlarged. Atherosclerosis of the aorta. Decreased size of right-sided hydropneumothorax now with approximately 11 mm pleural separation at the level the right lung base. Small left pleural effusion is also slightly decreased in size from comparison. Linear subsegmental right midlung and bibasilar opacities persist suggesting areas of atelectasis/scarring. No overt pulmonary edema. Degenerative changes are seen within the spine and shoulders. IMPRESSION: 1. Decreased size of right-sided hydropneumothorax. 2. Decreased size of small left pleural effusion with persistent right midlung and bibasilar opacities suggesting atelectasis or scarring. 3. Cardiomegaly without overt pulmonary edema. The above report was generated using voice recognition software. It may contain grammatical, syntax or spelling errors. Electronically signed by: Nikos Alexandra M.D. 10/12/2017 2:08 PM Dictated Date/Time: 10/12/2017 2:06 PM The status of this report is Signed. Draft = Not yet reviewed or approved by Radiologist. Signed = Reviewed and approved by Radiologist. EKG FELICITY SALINAS ID:[id number] 12-OCT-2017 13:50:51 [facility] Poor data quality, interpretation may be adversely affected Sinus rhythm with 1st degree A-V block Incomplete left bundle block ST & T wave abnormality, consider inferolateral ischemia Abnormal ECG When compared with ECG of 02-SEP-2017 12:31, Sinus rhythm has replaced Atrial flutter QT has lengthened 25mm/s 10mm/mV 150Hz 8.0 SP2 12SL 241 HD TATIANNA: 12 Referred by: Unconfirmed Vent. rate 79 BPM AR interval 214 ms QRS duration 120 ms QT/QTc 454/520 ms P-R-T axes 63 24 189 1945 (71 yr) Male 82in 0lb Room: Loc:15 Filler Shredder Helper:Margie Anaya ind: Impression Assessment and Plan Patient is a pleasant 71 y/o male, with PMHx of chronic iron deficient anemia, chronic duodenitis w/ Caio's gland hyperplasia noted on EGD in , h/o R complex pleural effusion, chronic systolic CHF, dilated cardiomyopathy w/ severe LV dysfunction w/ EF of 45 %, CAD s/p PCI, paroxysmal a.fib on Eliquis, SVT, HTN, HLD, depression, and GERD who presented to the ED because of progressively SOB x a few days. In ED, patient was found to be hypotensive at 80 /41 and hgb of 4.3. GI bleed w/ h/o GERD and duodenitis on EGD in 07/2017, chronic iron deficient anemia, hypotension: - Admit to tele for cardiac monitoring - Trend cardiac enzymes - O2 protocol - Follow EKG QAM and PRN chest pain - 2 u PRBCs and 2 u FFP now; 2 u PRBCs on hold - Follow H&H - Hold ASA and Eliquis - Hold hypotensive agents - IV Protonix gtt - IVF @ 100 ml/hr - BCx pending - Continue iron supplement - Consult GI, appreciate recommendations -- s/p colonoscopy in 08/2016- polyps, otherwise unremarkable -- s/p EGD 07/2017 w/ chronic duodenitis w/ Caio's gland hyperplasia Chronic systolic CHF, dilated cardiomyopathy w/ severe LV dysfunction w/ EF of 45 %, CAD s/p PCI, paroxysmal a.fib on Eliquis, SVT, HTN, HLD: - Hold ASA and Eliquis as above, Lasix due hypotension - Continue Amiodarone, Lipitor, Mag-Ox supplement, Metoprolol w/ hold parameters Depression: Continue Zoloft DVT prophylaxis: Chemical anticoagulation contraindicated due to anemia Code status: LEVEL I, FULL Dispo: From home, lives alone- PT/OT and CM consulted i personally examined pt and verified all lock points w T Murarik PAC feeling tired, off and on lightheaded but not now, feeling a little better now no abdominal pain (+) dark stools for about a week or so, quit taking eliquis a few days ago due to this, but presented to ER more due to SOB/GARBER vitals noted surprisingly nad breathing unlabored moderate pallor no abdominal pain no epigastric tenderness no guarding/rebound severe anemia w early hemorrhagic shock from GI bleed -transfuse, follow hemodynamics, fluids, likely to need more blood -likely subacute related to eliquis induced coagulopathy -protonix due to prior duodenitis, but most likely small bowel or lower source with painless presentation, no UGI sx -fortunately looks far more stable at the bedside than his numbers would suggest -d/w GI Resuscitation Status LEVEL I, FULL VTE Prophylaxis Will order VTE Prophylaxis: Yes
[2017-10-12] MEDS ORDERED: PANTOprazole INJ 40 MG in DEXTROSE 5% 100ML IV SCH (15:30)
[2017-10-12] MEDS ORDERED: BENA10TA10 PO (16:14)
[2017-10-12] MEDS ORDERED: FURO-85 PO (16:14)
[2017-10-12] MEDS: SODIUM CHLORIDE 0.9% 1000ML 1,000 ML IV SCH (16:57)
[2017-10-12] MEDS: FERROUS SULFATE 325 MG TAB PO SCH (17:21)
[2017-10-12] MEDS ORDERED: PNEUMOCOCCAL ADMINISTRATION CHARGE ONE (18:15)
[2017-10-12] MEDS ORDERED: INFLUENZA VIRUS QUAD VACCINE 0.5 ML SYR IM. ONE (18:15)
[2017-10-12] MEDS ORDERED: INFLUENZA VACCINE HIGH DOSE 65+ 0.5 ML SYR IM. ONE (18:30)
[2017-10-12] MEDS ORDERED: INFLUENZA ADMINISTRATION CHARGE ONE (18:30)
[2017-10-12] MEDS ORDERED: PNEUMOCOCCAL POLYSACCHARIDES 25 MCG/0.5 ML VIAL/SYR IM. ONE (18:30)
--- NOTE | 2017-10-12 18:50 | EMERGENCY ROOM VISIT NOTE ---
History Report prepared by Simba: Beni Leon Under the Supervision of: Dr. Raman Bunn M.D. First contact with patient: 13:40 Chief Complaint: RESPIRATORY PROBLEMS Stated Complaint: BREATHING DIFF. History of Present Illness The patient is a 71 year old male who presents to the Emergency Room with complaints of constant shortness of breath starting yesterday. The patient denies any chest pain, fever, vomiting, and abdominal pain. The patient states that he had his lung catheter removed from his right side a month ago. The patient is on Eliquis but states he has not taken it in 2 days. He is not sure why he is on Eliquis. Source of History: patient Onset: yesterday Position: other (global) Symptom Intensity: moderate Quality: other (shortness of breath) Timing: constant Associated Symptoms: No fevers, No chest pain, No vomiting, No abdominal pain Review of Systems See HPI for pertinent positives & negatives. A total of 10 systems reviewed and were otherwise negative. Past Medical & Surgical Medical Problems: (1) Acute exacerbation of CHF (congestive heart failure) (2) Anemia (3) Atrial fibrillation (4) CAD (coronary artery disease) (5) CAD in hoh artery (6) Dilated cardiomyopathy (7) Dysphagia (8) Elevated alkaline phosphatase level (9) Empyema lung (10) Empyema, right (11) HLD (hyperlipidemia) (12) Hypertension (13) Hypertriglyceridemia (14) Pleural effusion, right (15) Weight loss Surgical Problems: (1) H/O heart artery stent (2) S/P right coronary artery (RCA) stent placement Family History Cancer Diabetes mellitus Heart disease Social History Smoking Status: Never Smoker Drug Use: none Marital Status: Current/Historical Medications Scheduled Amiodarone Hcl (Cordarone), 200 MG PO DAILY Apixaban (Eliquis), 5 MG PO BID Aspirin (Aspirin Low Dose), 81 MG PO DAILY Atorvastatin (Lipitor), 80 MG PO DAILY Benazepril (Lotensin), 10 MG PO DAILY Bimatoprost (Lumigan), 1 DROPS OP HS Cholecalciferol (Vitamin D3), 2,000 UNITS PO QAM Ferrous Sulfate (Kp Ferrous Sulfate), 1 TAB PO BID Furosemide (Lasix), 20 MG PO DAILY Magnesium Oxide (Mag-Ox), 400 MG PO QAM Metoprolol Succ (Toprol Xl) (Toprol-Xl), 12.5 MG PO DAILY Multivitamin (Multivitamin), 1 TAB PO QAM Pantoprazole (Protonix), 40 MG PO QAM Polyethylene (Miralax), 17 GM PO DAILY Senna (Senokot), 1 TAB PO QAM Sertraline (Zoloft), 1.5 TAB PO QAM Scheduled PRN Acetaminophen (Tylenol), 650 MG PO Q6 PRN for Pain or Fever Allergies Coded Allergies: No Known Allergies (Verified , 10/12/17) Physical Exam Vital Signs Date Time Temp Pulse Resp B/P (MAP) Pulse Ox O2 Delivery O2 Flow Rate FiO2 10/12/17 15:05 77 100 Room Air 10/12/17 15:01 72/43 10/12/17 14:57 36.4 77 20 71/47 100 10/12/17 14:53 71/47 10/12/17 14:50 79 99 Room Air 10/12/17 14:35 79 100 Room Air 10/12/17 14:20 79 100 Room Air 10/12/17 14:09 77 10/12/17 14:01 80/46 10/12/17 13:35 97 Room Air 10/12/17 13:35 97 Room Air 10/12/17 13:35 36.4 83 22 80/41 97 Room Air 10/12/17 13:35 97 Room Air Physical Exam Constitutional: Vital signs reviewed. Eyes: Pupils are equal round reactive to light. Conjunctiva are noninjected. ENT: Pharynx is clear without erythema or exudate. Mucous membranes are moist. Neck supple without meningeal signs. Respiratory: Clear to auscultation bilaterally. Breath sounds are equal bilaterally. Cardiovascular: Regular rate and rhythm. No rubs or gallops. GI: Soft, nondistended and nontender. Bowel sounds are present. Rectal: Guaiac positive black stool. No gross blood. Musculoskeletal: Bilateral pitting edema to the lower extremities. No lower extremity tenderness. Integumentary: No cyanosis. Neurological: The patient is awake and alert. No focal deficits. Psychiatric: Normal affect. Medical Decision & Procedures ER Provider Diagnostic Interpretation: Radiology results as stated below per my review and the radiologist's interpretation: CHEST ONE VIEW PORTABLE HISTORY: 71 years-old Male h/o R hydroptx follow-up study in a patient with right hydropneumothorax COMPARISON: Chest radiograph 09/11/2017 TECHNIQUE: Portable AP view of the chest FINDINGS: Cardiac silhouette is again mildly enlarged. Atherosclerosis of the aorta. Decreased size of right-sided hydropneumothorax now with approximately 11 mm pleural separation at the level the right lung base. Small left pleural effusion is also slightly decreased in size from comparison. Linear subsegmental right midlung and bibasilar opacities persist suggesting areas of atelectasis/scarring. No overt pulmonary edema. Degenerative changes are seen within the spine and shoulders. IMPRESSION: 1. Decreased size of right-sided hydropneumothorax. 2. Decreased size of small left pleural effusion with persistent right midlung and bibasilar opacities suggesting atelectasis or scarring. 3. Cardiomegaly without overt pulmonary edema. The above report was generated using voice recognition software. It may contain grammatical, syntax or spelling errors. Electronically signed by: Nikos Alexandra M.D. 10/12/2017 2:08 PM Dictated Date/Time: 10/12/2017 2:06 PM Laboratory Results 10/12/17 13:11 Red Blood Count 1.68, Mean Corpuscular Volume 89.9, Mean Corpuscular Hemoglobin 25.6, Mean Corpuscular Hemoglobin Concent 28.5, Mean Platelet Volume 9.0, Neutrophils (%) (Auto) 84.1, Lymphocytes (%) (Auto) 10.7, Monocytes (%) (Auto) 4.4, Eosinophils (%) (Auto) 0.3, Basophils (%) (Auto) 0.2, Neutrophils # (Auto) 7.78, Lymphocytes # (Auto) 0.99, Monocytes # (Auto) 0.41, Eosinophils # (Auto) 0.03, Basophils # (Auto) 0.02 10/12/17 13:11 Test 10/12/17 13:11 10/12/17 14:54 White Blood Count 9.26 K/uL (4.8-10.8) Red Blood Count 1.68 M/uL (4.7-6.1) Hemoglobin 4.3 g/dL (14.0-18.0) Hematocrit 15.1 % (42-52) Mean Corpuscular Volume 89.9 fL (80-100) Mean Corpuscular Hemoglobin 25.6 pg (25-34) Mean Corpuscular Hemoglobin Concent 28.5 g/dl (32-36) Platelet Count 361 K/uL (130-400) Mean Platelet Volume 9.0 fL (7.4-10.4) Neutrophils (%) (Auto) 84.1 % Lymphocytes (%) (Auto) 10.7 % Monocytes (%) (Auto) 4.4 % Eosinophils (%) (Auto) 0.3 % Basophils (%) (Auto) 0.2 % Neutrophils # (Auto) 7.78 K/uL (1.4-6.5) Lymphocytes # (Auto) 0.99 K/uL (1.2-3.4) Monocytes # (Auto) 0.41 K/uL (0.11-0.59) Eosinophils # (Auto) 0.03 K/uL (0-0.5) Basophils # (Auto) 0.02 K/uL (0-0.2) RDW Standard Deviation 72.2 fL (36.4-46.3) RDW Coefficient of Variation 22.7 % (11.5-14.5) Immature Granulocyte % (Auto) 0.3 % Immature Granulocyte # (Auto) 0.03 K/uL (0.00-0.02) Polychromasia 1+ Hypochromasia PRESENT Anisocytosis PRESENT Tear Drop Cells 1+ Prothrombin Time 15.0 SECONDS (9.0-12.0) Prothromb Time International Ratio 1.4 (0.9-1.1) Activated Partial Thromboplast Time 21.7 SECONDS (21.0-31.0) Partial Thromboplastin Ratio 0.8 Anion Gap 17.0 mmol/L (3-11) Est Creatinine Clear Calc Drug Dose 45.0 ml/min Estimated GFR () 56.9 Estimated GFR (Non- 49.1 BUN/Creatinine Ratio 27.4 (10-20) Calcium Level 8.6 mg/dl (8.5-10.1) Creatine Kinase MB 4.0 ng/ml (0.5-3.6) Troponin I 0.122 ng/ml (0-0.045) Creatine Kinase MB Ratio (0-3.0) Laboratory results as reviewed by me. Medications Administered Medications (Trade) Dose Ordered Sig/Kaitlynn Route Start Time Stop Time Status Last Admin Dose Admin Sodium Chloride 1,000 ml @ 999 mls/hr Q1H1M STAT IV 10/12/17 13:51 10/12/17 14:51 DC 10/12/17 14:01 999 MLS/HR Acetaminophen (Tylenol Tab) 650 mg NOW STAT PO 10/12/17 14:29 10/12/17 14:31 DC 10/12/17 14:49 650 MG Diphenhydramine HCl (Benadryl Cap) 50 mg NOW ONCE PO 10/12/17 14:30 10/12/17 14:31 DC 10/12/17 14:48 50 MG Pantoprazole Sodium 80 mg/ Dextrose 120 ml @ 400 mls/hr NOW STAT IV 10/12/17 14:29 10/12/17 14:46 DC 10/12/17 14:45 400 MLS/HR ECG Per My Interpretation Indication: SOB/dyspnea Rate (beats per minute): 79 Rhythm: sinus rhythm Findings: 1st degree AV block, LBBB, other (No PVCs) ED Course 1340: The patient was evaluated in room C2. A complete history and physical exam was performed. 1351: Sodium Chloride 1000 ml @ 999 mls/hr IV 1422: I reevaluated the patient, and I performed a rectal exam. He had guaiac positive black stools. I reviewed his blood work with him and the need for a transfusion. He states that the last time he took Eliquis was two days ago. 1423: I discussed the patient's case with Dr. Zamora - Hematology, and she does not advise to start PCC. 1428: I reevaluated the patient, and his blood pressure was 80/46. He is going to get uncrossed matched blood. 1429: I ordered Pantoprazole Sodium 80mg/ Dextrose 120ml @ 400mls/hr IV, Tylenol Tab 650mg PO 1430: Benadryl 50mg PO 1436: I discussed the patient's case with Dr. Che[place] - [facility] [place]. He is going to evaluate the patient for further treatment 1446: The Protonix drip is running. The charge nurse is getting blood from the blood bank and the Hospitalist FAIZA is in the room. 1458: I reevaluated the patient, and his pressure was 71/47. He states that he feels weak. 2 units of O negative blood are bolusing currently. 1512: I reevaluated the patient, and his blood pressure was 81/45. Blood was being transfused, and Dr. Chaparrita WISE Hospitalist was in the room. 5: I reevaluated the patient, and his blood pressure was 89/47. Medical Decision This is a 71-year-old male presents with shortness of breath. Differential diagnosis includes pneumothorax, pleural effusion, pneumonia, pulmonary edema, anemia, GI bleed. I did perform a limited focused review of portions of the patient's old chart on the electronic medical record. The patient had an ultrasound guided insertion of a right PleurX catheter in July due to a complicated right pleural effusion. He had an X-ray on September 11 which showed persistent right basilar hydropneumothorax and a left pleural effusion. The patient also had an EGD done on August 18 for dysphagia which showed mild non-specific chronic duodenitis. I did evaluate the patient as noted above. Patient is presenting with shortness of breath. He does have a prior history of hydropneumothorax. IV access was established. The patient was placed on a continuous media monitor. He is hypotensive. He was given a liter normal saline IV. I did order and personally review the patient's 12-lead EKG and chest x-ray as described above. I did order and review the patient's blood work as noted in the electronic medical record. His hemoglobin is less than 5. Patient is on Eliquis but he has not taken his Eliquis for 2 days. I did perform a rectal examination which showed guaiac positive melanotic stools. I did order 2 units of packed RBCs for immediate transfusion. As the patient was hypotensive I ordered 2 units of uncrossed matched blood as well. He was also given 2 units of FFP. I did obtain consent for blood transfusion. He was premedicated with Tylenol and Benadryl. I did reassess the patient multiple times. His transfusion was started in the emergency department. His blood pressure did improve. I did discuss case with the hospitalist and case checker. Medication Reconcilliation Current Medication List: was personally reviewed by me Blood Pressure Screening Patient's blood pressure: Low blood pressure Monitored by the hospitalist Consults Time Called: 1420 Consulting Physician: Dr. Zamora - Hematology Returned Call: 1428 I discussed the patient's case with Dr. Sera Ferris, and she does not advise to start PCC. Additional Consults: Time Called: 1433 Consulted Physician: Dr. Chaparrita MORENO Hospitalist Returned Call: 1435 Additional Comments: I discussed the patient's case with Dr. Chaparrita MORENO Hospitalist. He is going to evaluate the patient for further treatment. Impression Primary Impression: Acute GI bleeding Additional Impressions: Hypotension Symptomatic anemia Anticoagulated Critical Care I have personally spent 45 minutes of critical care time in the direct management of this patient. This includes bedside care, interpretation of diagnostic studies, and testing, discussion with consultants, patient, and family members, and other required patient management activities. This 45 minutes is in excess of all separately billable procedures. Scribe Attestation The scribe's documentation has been prepared under my direct and personally reviewed by me in its entirety. I confirm that the note above accurately reflects all work, treatment, procedures, and medical decision making performed by me. Departure Information Dispostion Being Evaluated By Hospitalist Referrals Alex Marshall M.D. (PCP) Patient Instructions My [facility] Problem Qualifiers Additional Impressions: Hypotension Hypotension type: unspecified hypotension type Qualified Codes: I95.9 - Hypotension, unspecified
[2017-10-12 20:16] LABS: HEMATOCRIT 16.9 % (42-52); HEMOGLOBIN 5.4 g/dL (14.0-18.0)
[2017-10-12] MEDS: BIMATOPROST 0.01% OP SOLN 2.5 ML BTL OP SCH (20:51)
[2017-10-12] MEDS: PANTOprazole INJ 40 MG in SYRINGE 0 ML IV SCH (20:52)
[2017-10-13] VITALS (12 sets, daily range): BP systolic 89–107; BP diastolic 51–59; PULSE 68–74; TEMP 36.3–36.9; O2SAT 90–94; Ht 175.3 cm; Wt 68.5 kg
[2017-10-13] MEDS: SODIUM CHLORIDE 0.9% 1000ML 1,000 ML IV SCH ×2 (02:57→13:27)
[2017-10-13] MEDS: ACETAMINOPHEN 325 MG TAB PO PRN (02:58)
[2017-10-13 04:07] LABS: HEMATOCRIT 23.6 % (42-52); HEMOGLOBIN 7.7 g/dL (14.0-18.0); MEAN CELL VOLUME 87.4 fL (80-100); MEAN CORPUSCULAR HEMOGLOBIN 28.5 pg (25-34); MEAN CORPUSCULAR HGB CONC 32.6 g/dl (32-36); MEAN PLATELET VOLUME 9.3 fL (7.4-10.4); NUCLEATED RED BLOOD CELL ABS 0.03 K/uL (0-0); PLATELET COUNT 202 K/uL (130-400); RED CELL DISTRIBUTION WIDTH CV 16.6 % (11.5-14.5); RED CELL DISTRIBUTION WIDTH SD 52.6 fL (36.4-46.3); WHITE BLOOD COUNT 7.63 K/uL (4.8-10.8)
[2017-10-13 04:45] LABS: CALCIUM 8.1 mg/dl (8.5-10.1); CREATININE 0.98 mg/dl (0.60-1.40); POTASSIUM 3.9 mmol/L (3.5-5.1)
--- NOTE | 2017-10-13 07:33 | Medical Consult ---
Consultation Note Date of Service Oct 13, 2017. Consultation Note Full consult to follow. Hx of Fe def anemia and heme pos stool in past with EGD/ colo 08/2016 no explanation and EGD 07/2017 no significant findings either. On Eliquis with black heme pos stools, Hgb 4. No stools overnight so no active bleeding. Troponin elevated so need cardiac clearance for EGD. Continue PPI bid. Check LFTs to look for shock liver also.
[2017-10-13 08:06] LABS: ALBUMIN 2.4 gm/dl (3.4-5.0); TOTAL PROTEIN 5.2 gm/dl (6.4-8.2)
[2017-10-13] MEDS: PANTOprazole INJ 40 MG in SYRINGE 0 ML IV SCH ×2 (08:11→20:41)
[2017-10-13] MEDS: ATORVASTATIN 40 MG TAB PO SCH (08:12)
[2017-10-13] MEDS: FERROUS SULFATE 325 MG TAB PO SCH ×2 (08:12→18:28)
[2017-10-13] MEDS: MULTIVITAMIN TAB PO SCH (08:12)
[2017-10-13] MEDS: METOPROLOL SUCC 25MG EXT REL TAB PO SCH (08:12)
[2017-10-13] MEDS: AMIODARONE 200 MG TAB PO SCH (08:13)
[2017-10-13] MEDS: SERTRALINE HCL 50 MG TAB PO SCH (08:13)
[2017-10-13] MEDS: CHOLECALCIFEROL 1000 INTER.UNIT TAB PO SCH (08:13)
[2017-10-13] MEDS: MAGNESIUM OXIDE 400 MG TAB PO SCH (08:13)
--- NOTE | 2017-10-13 08:45 | Gastrointestinal Consultation ---
Gastrointestinal Consultation Date of Consultation: Oct 13, 2017 Attending Physician: Aramis Cheatham Consulting Physician: Ayden Ho Reason for Consultation: melena and anemia History of Present Illness Patient is a 71 year old male I saw at 0715 this am with CC of shortness of breath. Reviewed [facility] records and [facility] records. He had workup for Fe def anemia 08/2016 with EGD showing duodenal submucosal nodules path neg, colonoscopy 4 polyps removed path tubular adenoma, Maria E endoscopy 10/2016 negative. GI consult done 07/2017 for dysphagia and abnormal stomach on CT. EGD 08/20/17 gastric body thickening path negative and duodenum normal with path negative. Pt on Eliquis for afib and also ASA. States he takes iron with dark stools but black over last several days. Came to ER for SOB fror 24 hours. He was noted to have black heme pos stool on rectal and Hgb 4.3. Per nursing no stools overnight and Hgb 4.3 to 7.7 post 4 units of blood. INR 1.4 on admit. He was given 2 U FFP also. Troponin 8.4. Do not see LFTs done. No change in bowels nor dysphagia,nor wt loss, nor n/v, nor gerd, nor abd pain. Past Medical/Surgical History Medical Problems: (1) Acute GI bleeding Status: Acute (2) Alkaline phosphatase elevation Status: Acute (3) Anemia Status: Acute (4) Anticoagulated Status: Acute (5) Chest pain Status: Acute (6) Epistaxis, recurrent Status: Acute (7) Gastritis Status: Acute (8) Hypotension Status: Acute (9) On continuous oral anticoagulation Status: Acute (10) Pleural effusion, bilateral Status: Acute (11) Symptomatic anemia Status: Acute Family History Cancer Diabetes mellitus Heart disease Social History Smoking Status: Never Smoker Drug Use: none Marital Status: Allergies Coded Allergies: No Known Allergies (Verified , 10/12/17) Current Medications Home Meds and Scripts Medications Dose Route/Sig Max Daily Dose Days Date Category Lotensin (Benazepril HCl) 10 Mg Tab 10 Mg PO DAILY 10/12/17 Reported Lasix (Furosemide) 20 Mg Tab 20 Mg PO DAILY 10/12/17 Reported Toprol-Xl (Metoprolol Succinate) 25 Mg Tabcr 12.5 Mg PO DAILY 09/15/17 Reported Mag-Ox (Magnesium Oxide) 400 Mg Tab 400 Mg PO QAM 09/15/17 Reported Aspirin Low Dose (Aspirin) 81 Mg Tab 81 Mg PO DAILY 09/15/17 Reported Eliquis (Apixaban) 5 Mg Tab 5 Mg PO BID 09/15/17 Reported Cordarone (Amiodarone Hcl) 200 Mg Tab 200 Mg PO DAILY 09/15/17 Reported Miralax (Polyethylene) 17 Gm Pow 17 Gm PO DAILY 09/11/17 Rx Lipitor (Atorvastatin Calcium) 80 Mg Tab 80 Mg PO DAILY 08/06/17 Reported Multivitamin (Multivitamins) Tab 1 Tab PO QAM 01/21/17 Reported Vitamin D3 (Cholecalciferol) 1,000 Inter.unit Tab 2,000 Units PO QAM 01/21/17 Reported Protonix (Pantoprazole Sodium) 40 Mg Tab 40 Mg PO QAM 01/21/17 Reported Kp Ferrous Sulfate (Ferrous Sulfate) 325 Mg Tab 1 Tab PO BID 01/21/17 Reported Senokot (Senna) 8.6 Mg Tab 1 Tab PO QAM 01/21/17 Reported Tylenol (Acetaminophen) 325 Mg Tab 650 Mg PO Q6 PRN 04/19/16 Reported Zoloft (Sertraline HCl) 50 Mg Tab 1.5 Tab PO QAM 30 03/29/16 Reported Lumigan (Bimatoprost) 0.01 % Taniya 1 Drops OP HS 90 03/29/16 Reported Review of Systems see HPI otherwise 10 ROS negative Physical Exam Date Time Temp Pulse Resp B/P (MAP) Pulse Ox O2 Delivery O2 Flow Rate FiO2 10/13/17 08:28 36.7 68 20 105/56 (72) 90 Room Air 10/13/17 04:00 Room Air 10/13/17 02:45 36.7 71 20 101/54 92 10/13/17 01:45 36.6 71 20 95/52 92 10/13/17 00:45 36.7 71 18 96/54 93 10/13/17 00:24 36.7 74 18 94/53 93 10/13/17 00:09 36.3 73 18 89/51 (64) 93 Room Air 10/12/17 23:59 Room Air 10/12/17 23:15 36.6 74 18 91/55 94 10/12/17 22:15 75 20 93/54 93 10/12/17 21:45 75 21 87/52 94 3/18/18 21:26 36.8 75 20 87/46 94 18 21:18 36.8 74 18 85/52 95 3.0 10/12/17 20:10 97 Room Air 10/12/17 19:47 36.6 72 18 88/51 (63) 97 Room Air 10/12/17 18:38 36.5 76 22 91/49 100 18 18:30 36.5 76 22 87/54 100 10/12/17 18:16 36.5 77 20 82/49 100 18 18:07 36.5 76 16 85/49 100 18 18:00 36.7 77 16 83/49 100 10/12/17 17:51 36.7 76 16 88/49 100 10/12/17 17:39 36.6 76 16 83/49 100 10/12/17 16:57 36.6 74 18 87/47 100 10/12/17 16:40 36.6 81 18 87/47 100 Room Air 10/12/17 16:08 36.6 84 20 85/44 100 10/12/17 15:55 36.6 84 20 85/44 100 10/12/17 15:53 36.6 84 20 85/44 100 10/12/17 15:45 74 100 Room Air 10/12/17 15:31 89/57 10/12/17 15:30 77 100 Room Air 10/12/17 15:26 88/48 10/12/17 15:26 36.5 79 22 88/48 100 10/12/17 15:25 36.5 79 22 88/48 100 10/12/17 15:16 86/50 Room Air 10/12/17 15:15 77 10/12/17 15:10 81/45 18 15:10 36.5 77 16 81/45 100 10/12/17 15:05 77 100 Room Air 10/12/17 15:01 72/43 10/12/17 14:57 36.4 77 20 71/47 100 10/12/17 14:53 71/47 10/12/17 14:50 79 99 Room Air 10/12/17 14:35 79 100 Room Air 10/12/17 14:20 79 100 Room Air 10/12/17 14:09 77 10/12/17 14:01 80/46 10/12/17 13:35 97 Room Air 10/12/17 13:35 97 Room Air 10/12/17 13:35 36.4 83 22 80/41 97 Room Air 10/12/17 13:35 97 Room Air General Appearance: WD/WN, no apparent distress Eyes: normal inspection, PERRL ENT: hearing grossly normal, pharynx normal Neck: thyroid normal, trachea midline Respiratory/Chest: lungs clear, no respiratory distress Cardiovascular: regular rate, rhythm, no edema Abdomen: normal bowel sounds, non tender, soft, no organomegaly Extremities: normal range of motion, no pedal edema Neurologic/Psych: drafter plumbing II-XII nml as tested, normal mood/affect, oriented x 3 Skin: normal color, warm/dry Laboratory Results Last 24 Hours Test 10/12/17 13:11 10/12/17 14:43 10/12/17 14:54 10/12/17 19:39 White Blood Count 9.26 K/uL Red Blood Count 1.68 M/uL Hemoglobin 4.3 g/dL 5.4 g/dL Hematocrit 15.1 % 16.9 % Mean Corpuscular Volume 89.9 fL Mean Corpuscular Hemoglobin 25.6 pg Mean Corpuscular Hemoglobin Concent 28.5 g/dl Platelet Count 361 K/uL Mean Platelet Volume 9.0 fL Neutrophils (%) (Auto) 84.1 % Lymphocytes (%) (Auto) 10.7 % Monocytes (%) (Auto) 4.4 % Eosinophils (%) (Auto) 0.3 % Basophils (%) (Auto) 0.2 % Neutrophils # (Auto) 7.78 K/uL Lymphocytes # (Auto) 0.99 K/uL Monocytes # (Auto) 0.41 K/uL Eosinophils # (Auto) 0.03 K/uL Basophils # (Auto) 0.02 K/uL RDW Standard Deviation 72.2 fL RDW Coefficient of Variation 22.7 % Immature Granulocyte % (Auto) 0.3 % Immature Granulocyte # (Auto) 0.03 K/uL Polychromasia 1+ Hypochromasia PRESENT Anisocytosis PRESENT Tear Drop Cells 1+ Prothrombin Time 15.0 SECONDS Prothromb Time International Ratio 1.4 Activated Partial Thromboplast Time 21.7 SECONDS Partial Thromboplastin Ratio 0.8 Sodium Level 132 mmol/L Potassium Level 4.2 mmol/L Chloride Level 96 mmol/L Carbon Dioxide Level 19 mmol/L Anion Gap 17.0 mmol/L Blood Urea Nitrogen 39 mg/dl Creatinine 1.41 mg/dl Est Creatinine Clear Calc Drug Dose 45.0 ml/min Estimated GFR () 56.9 Estimated GFR (Non- 49.1 BUN/Creatinine Ratio 27.4 Random Glucose 220 mg/dl Calcium Level 8.6 mg/dl Creatine Kinase MB 4.0 ng/ml Troponin I 0.122 ng/ml Bedside Lactic Acid Venous 5.93 mmol/L Creatine Kinase MB Ratio Test 10/12/17 20:51 10/13/17 03:56 10/13/17 05:25 10/13/17 05:26 Troponin I 1.800 ng/ml 8.390 ng/ml White Blood Count 7.63 K/uL Red Blood Count 2.70 M/uL Hemoglobin 7.7 g/dL Hematocrit 23.6 % Mean Corpuscular Volume 87.4 fL Mean Corpuscular Hemoglobin 28.5 pg Mean Corpuscular Hemoglobin Concent 32.6 g/dl RDW Standard Deviation 52.6 fL RDW Coefficient of Variation 16.6 % Platelet Count 202 K/uL Mean Platelet Volume 9.3 fL Nucleated RBC Absolute Count (auto) 0.03 K/uL Nucleated Red Blood Cells % 0.3 % Sodium Level 136 mmol/L Potassium Level 3.9 mmol/L Chloride Level 103 mmol/L Carbon Dioxide Level 25 mmol/L Anion Gap 8.0 mmol/L Blood Urea Nitrogen 31 mg/dl Creatinine 0.98 mg/dl Est Creatinine Clear Calc Drug Dose 64.8 ml/min Estimated GFR () 88.3 Estimated GFR (Non- 76.2 BUN/Creatinine Ratio 32.1 Random Glucose 83 mg/dl Calcium Level 8.1 mg/dl Total Bilirubin 0.5 mg/dl Direct Bilirubin 0.2 mg/dl Aspartate Amino Transf (AST/SGOT) 55 U/L Alanine Aminotransferase (ALT/SGPT) 32 U/L Alkaline Phosphatase 128 U/L Total Protein 5.2 gm/dl Albumin 2.4 gm/dl Impression Anemia melena elevated troponin Continue PPI po bid. Hold Eliquis. Because of ASA use would repeat EGD at some point but need cardiac clearance. Discussed with Dr Cheatham and he will put patient on clears for now with no plans for EGD today since no active bleed and cardiology consult placed. Follow H and H. Check LFTS to evaluate for shock liver given severe anemia at presentation.
--- NOTE | 2017-10-13 09:57 | Family Medicine Progress Note ---
Progress Note Date of Service Oct 13, 2017. Subjective Denies any complaints of chest pain or difficulty breathing. Says he has not had any diarrhea since admission. Tolerating clear diet, says his joints are stiff this morning, but otherwise no complaints. Aware of Dr. Ho's plan to possibly scope him today pending Cardiology seeing him. Willing. Has had a scope before, so is familiar. ROS See HPI for pertinent positives and negatives. Medications Current Inpatient Medications Medications (Trade) Dose Ordered Sig/Kaitlynn Route Start Time Stop Time Status Last Admin Dose Admin Al Hydrox/Mg Hydrox/Simethicone (Maalox Max Susp) 15 ml Q4H PRN PO 10/12/17 15:00 11/11/17 14:59 10/13/17 13:38 15 ML Magnesium Hydroxide (Milk Of Magnesia Susp) 30 ml Q12H PRN PO 10/12/17 15:00 11/11/17 14:59 Ondansetron HCl (Zofran Inj) 4 mg Q6H PRN IV 10/12/17 15:00 11/11/17 14:59 10/13/17 13:38 4 MG Nitroglycerin (Nitrostat Tab) 0.4 mg UD PRN SL 10/12/17 15:00 11/11/17 14:59 Morphine Sulfate (MoRPHine SULFATE INJ) 2 mg Q30M PRN IV 10/12/17 15:00 10/26/17 14:59 Polyethylene (Miralax Powder Packet) 17 gm DAILY PRN PO 10/12/17 15:00 11/11/17 14:59 Acetaminophen (Tylenol Tab) 650 mg Q6 PRN PO 10/12/17 15:00 11/11/17 14:59 10/13/17 02:58 650 MG Amiodarone HCl (Cordarone Tab) 200 mg DAILY PO 10/13/17 09:00 11/12/17 08:59 10/13/17 08:13 200 MG Atorvastatin Calcium (Lipitor Tab) 80 mg DAILY PO 10/13/17 09:00 11/12/17 08:59 10/13/17 08:12 80 MG Cholecalciferol (Vitamin D Tab) 1,000 inter.unit QAM PO 10/13/17 09:00 11/12/17 08:59 10/13/17 08:13 1,000 INTER.UNIT Magnesium Oxide (Mag-Ox Tab) 400 mg QAM PO 10/13/17 09:00 11/12/17 08:59 10/13/17 08:13 400 MG Metoprolol Succinate (Toprol Xl Tab) 12.5 mg DAILY PO 10/13/17 09:00 11/12/17 08:59 10/13/17 08:12 12.5 MG Multivitamins (Multivitamin Tab) 1 tab QAM PO 10/13/17 09:00 11/12/17 08:59 10/13/17 08:12 1 TAB Sertraline HCl (Zoloft Tab) 75 mg QAM PO 10/13/17 09:00 11/12/17 08:59 10/13/17 08:13 75 MG Bimatoprost (Lumigan 0.01%) 1 drops HS OP 10/12/17 21:00 11/11/17 20:59 10/12/17 20:51 1 DROPS Ferrous Sulfate (Feosol Tab) 325 mg BIDM PO 10/12/17 16:45 11/11/17 17:59 10/13/17 18:28 325 MG Pantoprazole Sodium 40 mg/ Syringe 10 ml @ 5 mls/min Q12@0900,2100 IV 10/12/17 21:00 11/11/17 20:59 10/13/17 08:11 5 MLS/MIN Objective Vital Signs 10/13/17 03:56 10/13/17 03:56 Test 10/13/17 03:56 10/13/17 05:25 10/13/17 16:18 10/13/17 16:29 Red Blood Count 2.70 M/uL (4.7-6.1) Mean Corpuscular Volume 87.4 fL (80-100) Mean Corpuscular Hemoglobin 28.5 pg (25-34) Mean Corpuscular Hemoglobin Concent 32.6 g/dl (32-36) RDW Standard Deviation 52.6 fL (36.4-46.3) RDW Coefficient of Variation 16.6 % (11.5-14.5) Mean Platelet Volume 9.3 fL (7.4-10.4) Nucleated RBC Absolute Count (auto) 0.03 K/uL (0-0) Nucleated Red Blood Cells % 0.3 % Anion Gap 8.0 mmol/L (3-11) Est Creatinine Clear Calc Drug Dose 64.8 ml/min Estimated GFR () 88.3 Estimated GFR (Non- 76.2 BUN/Creatinine Ratio 32.1 (10-20) Calcium Level 8.1 mg/dl (8.5-10.1) Total Bilirubin 0.5 mg/dl (0.2-1) Direct Bilirubin 0.2 mg/dl (0-0.2) Aspartate Amino Transf (AST/SGOT) 55 U/L (15-37) Alanine Aminotransferase (ALT/SGPT) 32 U/L (12-78) Alkaline Phosphatase 128 U/L (45-117) Total Protein 5.2 gm/dl (6.4-8.2) Albumin 2.4 gm/dl (3.4-5.0) Troponin I 5.950 ng/ml (0-0.045) Bedside Glucose 97 mg/dl (70-99) Physical Exam Notes: GENERAL: Awake, alert, cachectic, in no distress. EYES: Normal conjunctiva. Sclera non-icteric. NECK: Supple. FROM. No JVD. RESPIRATORY: Mild right sided wheeze on right lower base. CARDIAC: Regular rate, normal rhythm. Extremities warm and well perfused. Pulses equal. +Systolic blowing murmur. ABDOMEN: Soft, non-distended. No tenderness to palpation. No rebound or guarding. No masses. LOWER EXTREMITIES: Calves are equal size bilaterally and non-tender. No edema. No discoloration. Heel bandage in place on LT heel. NEURO: No motor deficits noted. SKIN: No rash or jaundice noted. Laboratory Results 10/13/17 03:56 10/13/17 03:56 Test 10/13/17 03:56 10/13/17 05:25 10/13/17 16:18 10/13/17 16:29 Red Blood Count 2.70 M/uL (4.7-6.1) Mean Corpuscular Volume 87.4 fL (80-100) Mean Corpuscular Hemoglobin 28.5 pg (25-34) Mean Corpuscular Hemoglobin Concent 32.6 g/dl (32-36) RDW Standard Deviation 52.6 fL (36.4-46.3) RDW Coefficient of Variation 16.6 % (11.5-14.5) Mean Platelet Volume 9.3 fL (7.4-10.4) Nucleated RBC Absolute Count (auto) 0.03 K/uL (0-0) Nucleated Red Blood Cells % 0.3 % Anion Gap 8.0 mmol/L (3-11) Est Creatinine Clear Calc Drug Dose 64.8 ml/min Estimated GFR () 88.3 Estimated GFR (Non- 76.2 BUN/Creatinine Ratio 32.1 (10-20) Calcium Level 8.1 mg/dl (8.5-10.1) Total Bilirubin 0.5 mg/dl (0.2-1) Direct Bilirubin 0.2 mg/dl (0-0.2) Aspartate Amino Transf (AST/SGOT) 55 U/L (15-37) Alanine Aminotransferase (ALT/SGPT) 32 U/L (12-78) Alkaline Phosphatase 128 U/L (45-117) Total Protein 5.2 gm/dl (6.4-8.2) Albumin 2.4 gm/dl (3.4-5.0) Troponin I 5.950 ng/ml (0-0.045) Bedside Glucose 97 mg/dl (70-99) Assessment and Plan 71M here for h/o SOB found to have profound anemia and GIB while on Eliquis. Transfused with 4UPRBCs and 2UFFP in ED. 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 Acute blood loss anemia - +FOBT in ED. Hgb 4.3 on admission. Tranfused with 4 units PRBC and 2 units FFP in total. This morning: Hgb 7.7. Follow. - Thought to be due to GI bleed due to +FOBT in ED -- GI consulted. Possible scope tomorrow 20Mar. PPI running - pt has h/o chronic iron deficient anemia followed by Heme/onc, with iron transfusion treatment in recent past. However during prior hospitalization was started on anticoagulation for paroxysmal AFIB. No ale active bleeding, and is responding well to transfusion. Eliquis and ASA have been held. Elevated troponin - Monitored until peak, as per cardiology. Thought to be due to cardiac injury in setting of profound anemia and hypotension on arrival. Low suspicion for acute coronary syndrome. Echo here shows no significant change to LV function from prior echo in Jul 2017. Hypotension on arrival - 80/41 -> 107/55 last taken, improving with units of blood products. - Benazapril 10mg daily HELD - Toprol XL 12.5mg daily continued Hypoxemia - rales heard on exam, with +4L and moderate LV disfunction, decision made to gently diurese with home dose of furosemide (20mg) via IV. Pt in no distress. Paroxysmal AFIB - anticoagulation HELD - Amiodarone continued. Toprol XL contd. Currently sinus 60s-70s Depression: Continue Zoloft DVT prophylaxis: Chemical anticoagulation contraindicated due to anemia Code status: LEVEL I, FULL Dispo: From home, lives alone- PT/OT and CM consulted Resident Physician Supervision Note: I interviewed and examined the patient. Discussed with Dr. García and agree with findings and plan as documented in the note. Any exceptions or clarifications are listed here: None Documented By: Aramis Cheatham feeling better no lightheaded is a little sob and needing O2 no ongoig bleeding d/w GI and cardio vitals noted nad breathing unlabored but needing O2 diminished bibasilar faint rales mid lung acute/subacute hemorrhagic anemia w hypotension (early hemorrhagic shock) now improving in the setting of eliquis for afib -now more stable -hopefully EGD tomorrow -required 4 units thus far may need another acute on chronic systolic CHF -worse EF likley due to severe anemia/severe demand ischemia -diurese -fluid related to blood products obviously was necessary elevated troponin -no sx or EKG changes c/w DC. appearing to be severe demand ischemia due to profound anemia AKF -related to anemia -improved w transfusion -follow w diuresis possible severe protein calorie malnutrition -nutrition assistance appreciated close outpt f/u will be needed as well Continued [facility] stay due to: abnormal vital signs Resident Tracking Resident Involvement: Resident Care Provided Care Provided: Adult Hospital Medicine
--- NOTE | 2017-10-13 12:14 | Clinical Documentation Query ---
QUERY 1 OF [address] EDMONDSON, In your clinical opinion is this patient being managed for: (x ) NSTEMI, POA ( ) Not Agree ( ) Other explanation of clinical findings (Please Explain) ( ) Unable to determine (Please Define) ( ) Need to Discuss The medical record reflects the following clinical findings, treatment, and risk factors. Clinical Indicators: 71 yo male presenting with severe anemia and progressive dyspnea. Trops 0.122/1.80/8.39. EKG with ST and T wave abnormality. Hgb 4.3, Hct 15.1 Treatment: transfuse PRBC and FFP, follow H/H. tele monitoring, serial trops, cardiology consult pending Risk Factors: severe anemia, early hemorrhagic shock, CAD, chronic systolic CHF, A fib QUERY 2 OF 3 In your clinical opinion is this patient being managed for: ( x ) Acute kidney failure on CKD stage II ( ) Not Agree ( ) Other explanation of clinical findings (Please Explain) ( ) Unable to determine (Please Define) ( ) Need to Discuss The medical record reflects the following clinical findings, treatment, and risk factors. Clinical Indicators: Initial BUN 39, Cr 1.41 which has trended down to Cr 0.98. Review of historical Cr shows range of 0.7-0.98 over the past year. GFR range of 61.5-90.0 over the past year Treatment: IV fluids including 1L NSS bolus, Transfuse 2U PRBC, and 2U FFP, serial PRP's Risk Factors: GI bleed, early hemorrhagic shock, hx chronic systolic CHF, A fib, CAD QUERY 3 OF 3 In your clinical opinion is this patient being managed for: ( ) severe protein-calorie malnutrition ( x ) moderate protein-calorie malnutrition ( ) Not Agree ( ) Other explanation of clinical findings (Please Explain) ( ) Unable to determine (Please Define) ( ) Need to Discuss The medical record reflects the following clinical findings, treatment, and risk factors. Clinical Indicators: Per pattern drum maker consult, pt has had a 15% wt loss over the past 9 months. Treatment:pattern drum maker consult, consider addition of boost breeze if unable to advance diet from CL over the next 24-48 hours, monitor I/O and wts, continue MVI and vitamin D supplement Risk Factors: hx dysphagia, CAD, chronic systolic CHF Severe Malnutrition Criteria: (2 criteria needed) Energy intake: <75% of estimated energy requirement for > 1 month Wt loss: >5% in 1 month, > 7.5% in 3 months, >10% in 6 months, >20% in 1 year Body fat: severe loss of SQ fat from the orbits, triceps or fat overlying the ribs Muscle mass: severe muscle wasting at the temples, clavicles, shoulders, interosseous spaces, scapula, thigh, calf Fluid accumulation: severe localized or generalized edema of the extremities, vulva, scrotum-wt loss may be masked by edema Account Officer strength: measurably decreased per the devices standards Please clarify and document your clinical opinion in the progress notes and discharge summary. Terms such as "probable", "suspected", "likely", "questionable", "possible", or "still to be ruled out" are acceptable. IF IN AGREEMENT, YOU MUST DOCUMENT ABOVE DIAGNOSTIC STATEMENT IN DAILY PROGRESS NOTES AND DISCHARGE SUMMARY. This document is not part of the patient's record. Thank You, Saira Mata RN [phone]
--- NOTE | 2017-10-13 12:15 | Clinical Documentation Query ---
QUERY 1 OF [address] RODNEY, In your clinical opinion is this patient being managed for: ( ) NSTEMI, POA ( ) Not Agree (x ) Other explanation of clinical findings (Please Explain) see on written reply to exact same query ( ) Unable to determine (Please Define) ( ) Need to Discuss The medical record reflects the following clinical findings, treatment, and risk factors. Clinical Indicators: 71 yo male presenting with severe anemia and progressive dyspnea. Trops 0.122/1.80/8.39. EKG with ST and T wave abnormality. Hgb 4.3, Hct 15.1 Treatment: transfuse PRBC and FFP, follow H/H. tele monitoring, serial trops, cardiology consult pending Risk Factors: severe anemia, early hemorrhagic shock, CAD, chronic systolic CHF, A fib QUERY 2 OF 3 In your clinical opinion is this patient being managed for: ( ) Acute kidney failure on CKD stage II ( x ) Not Agree - see on written reply of exact same query ( ) Other explanation of clinical findings (Please Explain) ( ) Unable to determine (Please Define) ( ) Need to Discuss The medical record reflects the following clinical findings, treatment, and risk factors. Clinical Indicators: Initial BUN 39, Cr 1.41 which has trended down to Cr 0.98. Review of historical Cr shows range of 0.7-0.98 over the past year. GFR range of 61.5-90.0 over the past year Treatment: IV fluids including 1L NSS bolus, Transfuse 2U PRBC, and 2U FFP, serial PRP's Risk Factors: GI bleed, early hemorrhagic shock, hx chronic systolic CHF, A fib, CAD QUERY 3 OF 3 In your clinical opinion is this patient being managed for: See on written reply of exact same query ( ) severe protein-calorie malnutrition ( ) moderate protein-calorie malnutrition ( ) Not Agree ( ) Other explanation of clinical findings (Please Explain) ( ) Unable to determine (Please Define) ( ) Need to Discuss The medical record reflects the following clinical findings, treatment, and risk factors. Clinical Indicators: Per manager garage consult, pt has had a 15% wt loss over the past 9 months. Treatment:manager garage consult, consider addition of boost breeze if unable to advance diet from CL over the next 24-48 hours, monitor I/O and wts, continue MVI and vitamin D supplement Risk Factors: hx dysphagia, CAD, chronic systolic CHF Severe Malnutrition Criteria: (2 criteria needed) Energy intake: <75% of estimated energy requirement for > 1 month Wt loss: >5% in 1 month, > 7.5% in 3 months, >10% in 6 months, >20% in 1 year Body fat: severe loss of SQ fat from the orbits, triceps or fat overlying the ribs Muscle mass: severe muscle wasting at the temples, clavicles, shoulders, interosseous spaces, scapula, thigh, calf Fluid accumulation: severe localized or generalized edema of the extremities, vulva, scrotum-wt loss may be masked by edema Rd Project Manager strength: measurably decreased per the devices standards Please clarify and document your clinical opinion in the progress notes and discharge summary. Terms such as "probable", "suspected", "likely", "questionable", "possible", or "still to be ruled out" are acceptable. IF IN AGREEMENT, YOU MUST DOCUMENT ABOVE DIAGNOSTIC STATEMENT IN DAILY PROGRESS NOTES AND DISCHARGE SUMMARY. This document is not part of the patient's record. Thank You, Saira Mata, DAMIÁN [phone]
--- NOTE | 2017-10-13 13:11 | ECHOCARDIOGRAM REPORT ---
*NOTICE TO RECEIVING CONSTITUTION PARTY AGENCY This information is strictly Confidential and protected under [place] law. [place] law prohibits you from making any further disclosure of this information unless further disclosure is expressly permitted by the written consent of the person to whom it pertains or is authorized by law. A general authorization for the release of medical or other information is not sufficient for this purpose. Hospital accepts no responsibility if the information is made available to any other person, INCLUDING THE PATIENT. Interpretation Summary * Name: FELICITY SALINAS Study Date: 10/13/2017 09:05 AM BP: 105/56 mmHg * Patient Location: C.2E\S\E210\S\1 HR: 74 * : 1945 (M/d/yyyy) Gender: Male Height: 69 in * Age: 71 yrs Ethnicity: CA Weight: 146 lb * Ordering Physician: Aramis Cheatham * Referring Physician: No Doctor, Assigned * Performed By: Ksenia Rodríguez RCS * * Reason For Study: ELEVATED TROPONIN * BSA: 1.8 m2 * -- Conclusions -- * 1. Mildly dilated LV. Borderline concentric LVH. * 2. Moderate LV dysfunction. LVEF 35-40%. Inferolateral akinesis. Lateral hypokinesis. * 3. Normal RV size and function. * 4. Moderate aortic stenosis. Mild to moderate aortic regurgitation. * 5. Mild to moderate mitral regurgitation. * 6. Grade II diastolic dysfunction. * 6. Pulmonary hypertension. Est PASP 45-50 mmHg. * 7. Compared with prior study on 09/05/2016: LV now mildly dilated and LV dysfunction now moderate. Aortic stenosis/regurgitation has progressed. Procedure Details * A complete two-dimensional transthoracic echocardiogram was performed (2D, M-mode, Doppler and color flow Doppler). Left Ventricle * The left ventricle is mildly dilated. * There is borderline concentric left ventricular hypertrophy. * Ejection Fraction = 35-40%. * There are regional wall motion abnormalities as specified. * There is posterior wall akinesis. * There is moderate lateral wall hypokinesis. Right Ventricle * The right ventricle is grossly normal size. * The right ventricular systolic function is normal as assessed by tricuspid annular plane systolic excursion (TAPSE) (normal >1.5 cm). Atria * Borderline left atrial enlargement. * Right atrial size is normal. * No ASD detected; PFO is not assessed. Mitral Valve * The mitral valve leaflets appear thickened, but open well. * There is no mitral valve stenosis. * There is mild to moderate mitral regurgitation. Tricuspid Valve * There is mild tricuspid regurgitation. * Right ventricular systolic pressure is elevated at 40-50mmHg. Aortic Valve * Moderate valvular aortic stenosis. * Mild to moderate aortic regurgitation. Pulmonic Valve * There is mild valvular pulmonic stenosis. * Trace pulmonic valvular regurgitation. Great Vessels * The aortic root and proximal ascending aorta are normal sized. Pericardium/Pleural * There is no pericardial effusion. * Moderate size left pleural effusion. Great Vessels * Normal inferior vena cava size and collapsability with sniff indicates a normal right atrial pressure of 3 mmHg Left Ventricular Diastolic Function * Diastolic dysfunction, Grade II (pseudonormalization pattern). MMode 2D Measurements and Calculations IVSd 1.4 cm IVSs 1.8 cm LVIDd 6.7 cm LVIDs 5.6 cm LVPWd 1.1 cm LVPWs 1.4 cm IVS/LVPW 1.3 FS 16.2 % EDV(Teich) 229.9 ml ESV(Teich) 153.7 ml EF(Teich) 33.2 % EDV(cubed) 298.3 ml ESV(cubed) 175.6 ml EF(cubed) 41.1 % % IVS thick 26.6 % % LVPW thick 28.2 % LV mass(C)d 410.8 grams LV mass(C)dI 227.3 grams/m\S\2 LV mass(C)s 434.7 grams LV mass(C)sI 240.6 grams/m\S\2 SV(Teich) 76.3 ml SI(Teich) 42.2 ml/m\S\2 SV(cubed) 122.7 ml SI(cubed) 67.9 ml/m\S\2 Ao root diam 3.1 cm Ao root area 7.6 cm\S\2 LA dimension 5.2 cm LA/Ao 1.7 LVOT diam 2.0 cm LVOT area 3.2 cm\S\2 LVAd ap4 45.5 cm\S\2 LVLd ap4 8.7 cm EDV(MOD-sp4) 196.9 ml EDV(sp4-el) 202.1 ml LVAs ap4 29.8 cm\S\2 LVLs ap4 7.2 cm ESV(MOD-sp4) 103.8 ml ESV(sp4-el) 104.8 ml EF(MOD-sp4) 47.3 % EF(sp4-el) 48.2 % LVAd ap2 52.9 cm\S\2 LVLd ap2 9.6 cm EDV(MOD-sp2) 246.0 ml EDV(sp2-el) 247.8 ml LVAs ap2 37.4 cm\S\2 LVLs ap2 8.2 cm ESV(MOD-sp2) 139.0 ml ESV(sp2-el) 144.6 ml EF(MOD-sp2) 43.5 % EF(sp2-el) 41.6 % LVLd %diff 9.3 % EDV(MOD-bp) 231.9 ml LVLs %diff 11.9 % ESV(MOD-bp) 128.3 ml EF(MOD-bp) 44.7 % SV(MOD-sp4) 93.1 ml SI(MOD-sp4) 51.5 ml/m\S\2 SV(MOD-sp2) 107.0 ml SI(MOD-sp2) 59.2 ml/m\S\2 SV(MOD-bp) 103.6 ml SI(MOD-bp) 57.3 ml/m\S\2 SV(sp4-el) 97.4 ml SI(sp4-el) 53.9 ml/m\S\2 SV(sp2-el) 103.2 ml SI(sp2-el) 57.1 ml/m\S\2 Doppler Measurements and Calculations MV E max carol 154.2 cm/sec MV A max carol 128.9 cm/sec MV E/A 1.2 MV P1/2t max carol 154.2 cm/sec MV P1/2t 57.9 msec MVA(P1/2t) 3.8 cm\S\2 MV dec slope 780.5 cm/sec\S\2 MV dec time 0.22 sec Ao V2 max 359.5 cm/sec Ao max PG 51.7 mmHg Ao max PG (full) 48.2 mmHg Ao V2 mean 266.4 cm/sec Ao mean PG 31.1 mmHg Ao V2 VTI 87.0 cm JOSE(V,A) 0.84 cm\S\2 JOSE(V,D) 0.84 cm\S\2 AI max carol 337.8 cm/sec AI max PG 45.7 mmHg AI dec slope 272.1 cm/sec\S\2 AI P1/2t 363.7 msec LV V1 max PG 3.5 mmHg LV V1 max 92.7 cm/sec MR max carol 520.9 cm/sec MR max PG 108.5 mmHg SV(Ao) 662.7 ml SI(Ao) 366.8 ml/m\S\2 PA V2 max 94.2 cm/sec PA max PG 3.5 mmHg TR max carlo 308.2 cm/sec
--- NOTE | 2017-10-13 16:48 | Cardiology Consultation ---
Cardiology Consultation Date of Consultation: Oct 13, 2017. Requesting Physician: Chaparrita Reason for Consultation: Elevated troponin Pt evaluation today including: conversation w/ patient, physical exam, chart review, lab review, review of studies, review of inpatient medication list, conversation w/ attending History of Present Illness Mr. Rizo is a 71-year-old man with a complex past medical history outlined below well known to me from the outpatient setting and prior hospitalizations. He was really yesterday in the setting progressive shortness of breath, fatigue and found to be profoundly anemic. Cardiology consulted in the setting elevated troponin and his chronic cardiac issues including coronary artery disease status post multivessel stent, ischemic cardiomyopathy and atrial fibrillation on anticoagulation. Patient was most recently discharged after more than 3 weeks in the hospital on September 12, 2017. At that time he initially presented with failure to thrive and complex pleural effusion which was treated with thoracentesis and eventual decortication. Hospital course was complicated by atrial fibrillation with RVR , initially unresponsive to electrical cardioversion requiring IV amiodarone and for which eventually was started on anticoagulation with Eliquis, as well as acute on chronic systolic heart failure requiring IV diuresis. Post hospitalization patient was doing well. Had completed a stay at rehab been recently returned home. The day prior to admission patient noted increasing dyspnea with walking few steps. Denies any ale chest pain, palpitations, lower extremity edema. Reported mild presyncope and generalized fatigue. Denied any ale GI bleeding but did report black stools for some period of time prior to admission On arrival to the ED was hypotensive to the 70-80s and found have a hemoglobin down to 4.3. Initial EKG showed sinus rhythm with lateral ST depressions and troponin from 0.1 to 1.8 to 8.3. Patient denies any chest pain at any time. Was treated with 4 units PRBCs, 2 units of FFPAnd IV fluids, thus far positive 4 liters. At present states breathing about the same as when presented. Past Medical/Surgical History 1. Severe multivessel coronary artery disease status post drug-eluting stents to diagonal, distal RCA, PDA 03/2016 2. HFrEF/ICM--initial EF 25-30%, most recent echo with EF 35-40% 3. Paroxysmal AF -- on eliquis; amiodarone 4. Aortic stenosis -- moderate to severe 07/2017 -- repeat surveillance 6 months 5. Hemothorax post pleurodesis -- follow by Dr. Lancaster 6. Hypertension 7. Peripheral artery disease--mild arterial insufficiency by ABIs on the right 8. CVI-- Bilateral mild GSV reflux/dilation 04/2017 9. Caio's gland hyperplasia - EGD 07/2017 Recent cardiac testing: Echo (07/2017): Severely dilated LV, LVEF 35-40%, akinesis of inferior lateral wall, base to mid lateral wall. Moderate hypokinesis of inferior wall. Normal RV size and function. Moderate to severe (PV 3.4, mg 25, JOSE 1.0, DI 0.27, SVI 42), [id number] AI, [id number]-[id number] MR, grade 1 diastolic dysfunction Cardiac catheterization (03/29/16): RCA large, dominant artery, long 40% stenosis proximal, mid segment is ectatic with 40% mild diffuse disease. Distal RCA/PDA V with 3 sequential lesions (70%, 90%, 95%), 50% stenosis in large RPLB2. LM 10% ostial disease. Lad large drop from vessel 20% disease in proximal segment, large 1st diagonal with 90% proximal stenosis, small 2nd and 3rd diagonal occluded proximally. Circumflex subtotally occluded after takeoff of 1st OM, OM 1 moderate-sized vessel an occluded proximally, OM1 fills distally from right to left collaterals. Successful PCI (2.25 x 18 resolute PDA and 2.75 x 30 resolute to distal RCA) Cardiac catheterization (04/19/16): Left main luminal irregularities. LAD 30% proximal stenosis, luminal irregularities in remainder of large wrap around LAD , 1st diagonal with sequential up to 90% lesions in proximal segment, superior to 1st diagonal small with 70% stenosis. Second and 3rd small diagonal is occluded proximally. Circumflex small non dominant, occluded proximally. Successful PCI of 1st diagonal with 1 DEZ (2.25 x 26 Resolute stent). Medical Problems: (1) Acute exacerbation of CHF (congestive heart failure) (2) Anemia (3) Atrial fibrillation (4) CAD (coronary artery disease) (5) CAD in augustine artery (6) Dilated cardiomyopathy (7) Dysphagia (8) Elevated alkaline phosphatase level (9) Empyema lung (10) Empyema, right (11) HLD (hyperlipidemia) (12) Hypertension (13) Hypertriglyceridemia (14) Pleural effusion, right (15) Weight loss Surgical Problems: (1) H/O heart artery stent (2) S/P right coronary artery (RCA) stent placement Family History Cancer Diabetes mellitus Heart disease Social History Smoking Status: Never Smoker History of Alcohol Use: No Review of Systems 10 point review of systems was completed and was otherwise negative unless stated in HPI Allergies Coded Allergies: No Known Allergies (Verified , 10/12/17) Medications Current Inpatient Medications Medications (Trade) Dose Ordered Sig/Kaitlynn Route Start Time Stop Time Status Last Admin Dose Admin Al Hydrox/Mg Hydrox/Simethicone (Maalox Max Susp) 15 ml Q4H PRN PO 10/12/17 15:00 11/11/17 14:59 10/13/17 13:38 15 ML Magnesium Hydroxide (Milk Of Magnesia Susp) 30 ml Q12H PRN PO 10/12/17 15:00 11/11/17 14:59 Ondansetron HCl (Zofran Inj) 4 mg Q6H PRN IV 10/12/17 15:00 11/11/17 14:59 10/13/17 13:38 4 MG Nitroglycerin (Nitrostat Tab) 0.4 mg UD PRN SL 10/12/17 15:00 11/11/17 14:59 Morphine Sulfate (MoRPHine SULFATE INJ) 2 mg Q30M PRN IV 10/12/17 15:00 10/26/17 14:59 Polyethylene (Miralax Powder Packet) 17 gm DAILY PRN PO 10/12/17 15:00 11/11/17 14:59 Acetaminophen (Tylenol Tab) 650 mg Q6 PRN PO 10/12/17 15:00 11/11/17 14:59 10/13/17 02:58 650 MG Amiodarone HCl (Cordarone Tab) 200 mg DAILY PO 10/13/17 09:00 11/12/17 08:59 10/13/17 08:13 200 MG Atorvastatin Calcium (Lipitor Tab) 80 mg DAILY PO 10/13/17 09:00 11/12/17 08:59 10/13/17 08:12 80 MG Cholecalciferol (Vitamin D Tab) 1,000 inter.unit QAM PO 10/13/17 09:00 11/12/17 08:59 10/13/17 08:13 1,000 INTER.UNIT Magnesium Oxide (Mag-Ox Tab) 400 mg QAM PO 10/13/17 09:00 11/12/17 08:59 10/13/17 08:13 400 MG Metoprolol Succinate (Toprol Xl Tab) 12.5 mg DAILY PO 10/13/17 09:00 11/12/17 08:59 10/13/17 08:12 12.5 MG Multivitamins (Multivitamin Tab) 1 tab QAM PO 10/13/17 09:00 11/12/17 08:59 10/13/17 08:12 1 TAB Sertraline HCl (Zoloft Tab) 75 mg QAM PO 10/13/17 09:00 11/12/17 08:59 10/13/17 08:13 75 MG Bimatoprost (Lumigan 0.01%) 1 drops HS OP 10/12/17 21:00 11/11/17 20:59 10/12/17 20:51 1 DROPS Ferrous Sulfate (Feosol Tab) 325 mg BIDM PO 10/12/17 16:45 11/11/17 17:59 10/13/17 08:12 325 MG Sodium Chloride 1,000 ml @ 100 mls/hr Q10H IV 10/12/17 16:30 11/11/17 16:29 10/13/17 13:27 100 MLS/HR Pantoprazole Sodium 40 mg/ Syringe 10 ml @ 5 mls/min Q12@0900,2100 IV 10/12/17 21:00 11/11/17 20:59 10/13/17 08:11 5 MLS/MIN Physical Exam Vital Signs Past 12 Hours Date Time Temp Pulse Resp B/P (MAP) Pulse Ox O2 Delivery O2 Flow Rate FiO2 10/13/17 12:25 36.7 69 21 106/59 (75) 90 Room Air 10/13/17 12:00 Room Air 10/13/17 08:28 36.7 68 20 105/56 (72) 90 Room Air 10/13/17 08:00 Room Air General: Comfortable, dyspneic with sitting up Eyes: Sclerae anicteric, extraocular movements intact HENT: Oropharynx clear mucous membranes moist Neck: Normal carotid upstrokes, no bruits. JVD around 9-10 Lungs: Few crackles at the bases Cardiac: Regular rate and rhythm, 2/6 systolic ejection murmur heard best left upper sternal border, no, rubs or gallops. Vascular: 2+ radial Abdomen: Soft, nontender, nondistended, positive bowel sounds. Extremities: Well perfused, trace bilateral lower extremity edema Skin: No rashes or lesions. Neuro: Nonfocal Psych: Alert orient x3, normal affect and mood Data Laboratory Results: Last 24 Hours Test 10/12/17 19:39 10/12/17 20:51 10/13/17 03:56 10/13/17 05:25 Hemoglobin 5.4 g/dL 7.7 g/dL Hematocrit 16.9 % 23.6 % Troponin I 1.800 ng/ml White Blood Count 7.63 K/uL Red Blood Count 2.70 M/uL Mean Corpuscular Volume 87.4 fL Mean Corpuscular Hemoglobin 28.5 pg Mean Corpuscular Hemoglobin Concent 32.6 g/dl RDW Standard Deviation 52.6 fL RDW Coefficient of Variation 16.6 % Platelet Count 202 K/uL Mean Platelet Volume 9.3 fL Nucleated RBC Absolute Count (auto) 0.03 K/uL Nucleated Red Blood Cells % 0.3 % Sodium Level 136 mmol/L Potassium Level 3.9 mmol/L Chloride Level 103 mmol/L Carbon Dioxide Level 25 mmol/L Anion Gap 8.0 mmol/L Blood Urea Nitrogen 31 mg/dl Creatinine 0.98 mg/dl Est Creatinine Clear Calc Drug Dose 64.8 ml/min Estimated GFR () 88.3 Estimated GFR (Non- 76.2 BUN/Creatinine Ratio 32.1 Random Glucose 83 mg/dl Calcium Level 8.1 mg/dl Total Bilirubin 0.5 mg/dl Direct Bilirubin 0.2 mg/dl Aspartate Amino Transf (AST/SGOT) 55 U/L Alanine Aminotransferase (ALT/SGPT) 32 U/L Alkaline Phosphatase 128 U/L Total Protein 5.2 gm/dl Albumin 2.4 gm/dl Test 10/13/17 05:26 10/13/17 11:22 10/13/17 16:03 Troponin I 8.390 ng/ml Bedside Glucose 92 mg/dl Imaging: Chest x-ray, decreased right and left-sided effusion. Cardiomegaly without significant edema EKG: Sinus rhythm, lateral ST depressions Echo today reviewed--moderate LV dysfunction EF 35-40 percent, inferolateral akinesis, lateral hypokinesis, moderate aortic stenosis, [id number] aortic regurgitation, [id number]-[id number] mitral regurgitation, pulmonary hypertension estimated PA SP 45-50 Assessment & Plan 1. Acute blood loss anemia 2. Elevated troponin 3. Paroxysmal atrial fibrillation previously on anticoagulation 4. Acute on chronic systolic heart failure 5. Multivessel coronary artery disease/Ischemic cardiomyopathy 6. Moderate aortic stenosis, [id number] aortic regurgitation, mild mitral regurgitation 7. Pleural effusion status post decortication 8. Pulmonary hypertension --patient here with profound acute blood loss anemia in the setting of anticoagulation started for paroxysmal atrial fibrillation during prior hospitalization. No ale active bleeding and hemoglobin responding to blood transfusion. --patient found to have elevated/rising troponin with dynamic EKG changes. Suspect this represents cardiac injury in the setting profound anemia/ hypotension on arrival, low suspicion for acute plaque rupture --at present patient appears to have mild acute on chronic systolic heart failure in the setting blood products and IV fluids. No significant change to LV function and valvular heart disease from prior echo in office in July of 2017 Recommendations: -trend troponins until peak, monitor on telemetry -continue to hold prior Eliquis and aspirin -with severe multivessel disease, transfusion to hemoglobin >8 -continue to hold antihypertensives -stop IV fluids; resume Lasix, start with 20 IV today -continue amiodarone -as do not feel that current presentation represents true ACS event okay to proceed with EGD tomorrow assuming troponin peaked, heart failure stable Will continue to follow.
[2017-10-13] MEDS ORDERED: FUROSEMIDE INJ 20 MG in SYRINGE 0 ML IV ONE (18:45)
[2017-10-13] MEDS: BIMATOPROST 0.01% OP SOLN 2.5 ML BTL OP SCH (20:42)
[2017-10-14] VITALS (9 sets, daily range): BP systolic 82–103; BP diastolic 46–62; PULSE 67–85; TEMP 36.4–36.8; O2SAT 90–99
[2017-10-14 01:38] LABS: BASO % 0.1 %; BASO ABS # 0.01 K/uL (0-0.2); EOS % 0.2 %; EOS ABS # 0.02 K/uL (0-0.5); HEMATOCRIT 26.3 % (42-52); IG# 0.03 K/uL (0.00-0.02); LYMPH % 5.1 %; LYMPH ABS # 0.49 K/uL (1.2-3.4); MEAN CELL VOLUME 89.5 fL (80-100); MEAN CORPUSCULAR HEMOGLOBIN 27.2 pg (25-34); MEAN CORPUSCULAR HGB CONC 30.4 g/dl (32-36); MEAN PLATELET VOLUME 9.8 fL (7.4-10.4); MONO % 6.3 %; NEUT ABS # 8.37 K/uL (1.4-6.5); PLATELET COUNT 217 K/uL (130-400); RED CELL DISTRIBUTION WIDTH CV 17.5 % (11.5-14.5); RED CELL DISTRIBUTION WIDTH SD 57.2 fL (36.4-46.3); WHITE BLOOD COUNT 9.52 K/uL (4.8-10.8)
[2017-10-14] MEDS: ALBUMIN 25% 50 ML with FUROSEMIDE INJ 40 MG IV SCH ×6 (01:44→14:17)
[2017-10-14 01:47] LABS: ALBUMIN 2.4 gm/dl (3.4-5.0); CALCIUM 7.8 mg/dl (8.5-10.1); CREATININE 0.88 mg/dl (0.60-1.40); POTASSIUM 3.9 mmol/L (3.5-5.1)
[2017-10-14 01:50] LABS: TOTAL PROTEIN 5.4 gm/dl (6.4-8.2)
[2017-10-14] MEDS: ACETAMINOPHEN 325 MG TAB PO PRN ×2 (04:49→09:42)
--- NOTE | 2017-10-14 06:42 | DIAGNOSTIC IMAGING REPORT ---
CHEST ONE VIEW PORTABLE HISTORY: 71 years-old Male increasing o2 needs acute hypoxia COMPARISON: Chest radiograph 10/12/2017 and 09/11/2017 TECHNIQUE: Portable AP view of the chest FINDINGS: Cardiac silhouette is enlarged. Atherosclerosis of the aorta. Progressive mixed bilateral interstitial and alveolar opacities within a perihilar and bibasilar predominant distribution. Small bilateral pleural effusions. Trace right hydropneumothorax seen at the level of the right lung base and appears unchanged. Degenerative changes are seen within the spine and shoulders. IMPRESSION: 1. Cardiomegaly with interval development of mixed interstitial and alveolar opacities within a perihilar and bibasilar predominant distribution suggesting pulmonary edema with atelectasis. Superimposed pneumonia would be difficult to exclude. 2. Small right hydropneumothorax redemonstrated. Small left pleural effusion. The above report was generated using voice recognition software. It may contain grammatical, syntax or spelling errors. Electronically signed by: Nikos Alexandra M.D. 10/14/2017 6:40 AM Dictated Date/Time: 10/14/2017 6:38 AM
[2017-10-14 07:08] LABS: HEMOGLOBIN 7.6 g/dL (14.0-18.0)
[2017-10-14 07:20] LABS: INR 1.4 (0.9-1.1); PTT PATIENT 25.1 SECONDS (21.0-31.0)
[2017-10-14 07:39] LABS: ALBUMIN 2.5 gm/dl (3.4-5.0); TOTAL PROTEIN 5.2 gm/dl (6.4-8.2)
[2017-10-14] MEDS: ATORVASTATIN 40 MG TAB PO SCH (08:01)
[2017-10-14] MEDS: PANTOprazole INJ 40 MG in SYRINGE 0 ML IV SCH ×2 (08:01→21:57)
[2017-10-14] MEDS: CHOLECALCIFEROL 1000 INTER.UNIT TAB PO SCH (08:01)
[2017-10-14] MEDS: MAGNESIUM OXIDE 400 MG TAB PO SCH (08:01)
[2017-10-14] MEDS: FERROUS SULFATE 325 MG TAB PO SCH ×2 (08:03→16:59)
[2017-10-14] MEDS: AMIODARONE 200 MG TAB PO SCH (08:03)
[2017-10-14] MEDS: SERTRALINE HCL 50 MG TAB PO SCH (08:03)
[2017-10-14] MEDS: METOPROLOL SUCC 25MG EXT REL TAB PO SCH (08:04)
--- NOTE | 2017-10-14 08:22 | Family Medicine Progress Note ---
Progress Note Date of Service Oct 14, 2017. Subjective Improved since overnight. Overnight required up to 15L O2 due to hypoxemia. Has diuresed well overnight, and is now only requiring 6L O2 this morning. Says he never experienced any chest pain overnight, denies it now as well. Denies difficulty breathing or abdominal pain, does c/o of his back hurting a bit. Holding breakfast per nurse until GI sees him, pending possible scope. ROS See HPI for pertinent positives and negatives. Medications Current Inpatient Medications Medications (Trade) Dose Ordered Sig/Kaitlynn Route Start Time Stop Time Status Last Admin Dose Admin Al Hydrox/Mg Hydrox/Simethicone (Maalox Max Susp) 15 ml Q4H PRN PO 10/12/17 15:00 11/11/17 14:59 10/13/17 13:38 15 ML Magnesium Hydroxide (Milk Of Magnesia Susp) 30 ml Q12H PRN PO 10/12/17 15:00 11/11/17 14:59 Ondansetron HCl (Zofran Inj) 4 mg Q6H PRN IV 10/12/17 15:00 11/11/17 14:59 10/13/17 13:38 4 MG Nitroglycerin (Nitrostat Tab) 0.4 mg UD PRN SL 10/12/17 15:00 11/11/17 14:59 Morphine Sulfate (MoRPHine SULFATE INJ) 2 mg Q30M PRN IV 10/12/17 15:00 10/26/17 14:59 10/14/17 09:42 2 MG Polyethylene (Miralax Powder Packet) 17 gm DAILY PRN PO 10/12/17 15:00 11/11/17 14:59 Acetaminophen (Tylenol Tab) 650 mg Q6 PRN PO 10/12/17 15:00 11/11/17 14:59 10/14/17 09:42 650 MG Amiodarone HCl (Cordarone Tab) 200 mg DAILY PO 10/13/17 09:00 11/12/17 08:59 10/14/17 08:03 200 MG Atorvastatin Calcium (Lipitor Tab) 80 mg DAILY PO 10/13/17 09:00 11/12/17 08:59 10/14/17 08:01 80 MG Cholecalciferol (Vitamin D Tab) 1,000 inter.unit QAM PO 10/13/17 09:00 11/12/17 08:59 10/14/17 08:01 1,000 INTER.UNIT Magnesium Oxide (Mag-Ox Tab) 400 mg QAM PO 10/13/17 09:00 11/12/17 08:59 10/14/17 08:01 400 MG Metoprolol Succinate (Toprol Xl Tab) 12.5 mg DAILY PO 10/13/17 09:00 11/12/17 08:59 10/13/17 08:12 12.5 MG Multivitamins (Multivitamin Tab) 1 tab QAM PO 10/13/17 09:00 11/12/17 08:59 10/14/17 11:51 1 TAB Sertraline HCl (Zoloft Tab) 75 mg QAM PO 10/13/17 09:00 11/12/17 08:59 10/14/17 08:03 75 MG Bimatoprost (Lumigan 0.01%) 1 drops HS OP 10/12/17 21:00 11/11/17 20:59 10/13/17 20:42 1 DROPS Ferrous Sulfate (Feosol Tab) 325 mg BIDM PO 10/12/17 16:45 11/11/17 17:59 10/14/17 16:59 325 MG Pantoprazole Sodium 40 mg/ Syringe 10 ml @ 5 mls/min Q12@0900,2100 IV 10/12/17 21:00 11/11/17 20:59 10/14/17 08:01 5 MLS/MIN Furosemide 40 mg/ Syringe 4 ml @ 4 mls/min BID IV 10/14/17 21:00 11/13/17 20:59 Objective Physical Exam Notes: GENERAL: Awake, alert, in no distress. Oxymask in place. EYES: Normal conjunctiva. Sclera non-icteric. NECK: Supple. No JVD. RESPIRATORY: Diminished breath sounds at bases bilaterally. CARDIAC: Regular rate, normal rhythm. Extremities warm and well perfused. Pulses equal. +systolic murmur heard best over RT upper sternal border ABDOMEN: Soft, non-distended. No tenderness to palpation. No rebound or guarding. No masses. LOWER EXTREMITIES: Calves are equal size bilaterally and non-tender. No edema. No discoloration. NEURO: No motor deficits noted. + Dysphasia SKIN: No rash or jaundice noted. Assessment and Plan 71M admitted 18Mar for h/o SOB found to have profound anemia and GIB while on Eliquis. Transfused with 4UPRBCs and 2UFFP in ED. 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 Acute blood loss anemia - +FOBT in ED. Hgb 4.3 on admission. Tranfused with 4 units PRBC and 2 units FFP in total. This morning: Hgb 7.6. Follow. - Likely GI bleed due to +FOBT in ED -- GI consulted. Possible scope pending. PPI running - pt has h/o chronic iron deficient anemia followed by Heme/onc, with iron transfusion treatment in recent past. However during prior hospitalization was started on anticoagulation for paroxysmal AFIB. No ale active bleeding, and is responding well to transfusion. Eliquis and ASA have been held, cardio following and agree. Hypoxemia - likely 2/2 fluid overload due to transfusions - acute hypoxemia overnight needed 15L O2 via oxymask -- given 40mgLasix/ Albumin overnight q6h. Changed to Lasix to 40mg IV BID, per cardiology recs. - Currently sat 98-99 on 6L oxymask. Elevated troponin - Monitored until peak, as per cardiology. Thought to be due to cardiac injury in setting of profound anemia and hypotension on arrival. Low suspicion for acute coronary syndrome. Echo here shows no significant change to LV function from prior echo in Jul 2017. Hypotension on arrival - improving - 80/41 -> 107/55 last taken, improving with units of blood products. - Benazapril 10mg daily HELD - Toprol XL 12.5mg daily continued Paroxysmal AFIB - anticoagulation contraindicated at this time HELD - Amiodarone continued. Toprol XL contd. Currently sinus 60s-70s Depression: Continue Zoloft DVT prophylaxis: Chemical anticoagulation contraindicated due to anemia Code status: LEVEL I, FULL Dispo: From home, lives alone- PT/OT and CM consulted Resident Physician Supervision Note: I interviewed and examined the patient. Discussed with Dr. García and agree with findings and plan as documented in the note. Any exceptions or clarifications are listed here: None Documented By: Aramis Cheatham breathing doing better now than it was in the middle of the night, still not back to baseline but improving no further GI blood loss that he's noted, none reported by nursing d/w GI (given no active bleeding and other complicating factors, and low yield that scope will be intervention as much as diagnostic, we agree that barring changes, most likely scopes to be done as outpt in near future, but risk of doing luis m appearing to outweigh benefit) vitals noted nad breathing unlabored but needing O2 diminished bibasilar but better air entry than yesterday, mostly base rales now instead of mid lung acute/subacute hemorrhagic anemia w hypotension (early hemorrhagic shock) now improving in the setting of eliquis for afib -now more stable -endoscopic w/u as outpt in near but not emergent future -required 4 units thus far may need another, for now w CHF and lack of anemia sx , will hold on further transfusion acute on chronic systolic CHF -worse EF likley due to severe anemia/severe demand ischemia (?hopefully will recover with time) -diurese ongoing -fluid related to blood products obviously was necessary elevated troponin -no sx or EKG changes c/w MN. appearing to be severe demand ischemia due to profound anemia, med management, no sx, f/u echo after recovery AKF -related to anemia -improved s/p transfusion -follow w diuresis possible severe protein calorie malnutrition -nutrition assistance appreciated close outpt f/u will be needed as well Continued [facility] stay due to: abnormal vital signs Resident Tracking Resident Involvement: Resident Care Provided Care Provided: Adult Hospital Medicine
[2017-10-14] MEDS: MULTIVITAMIN TAB PO SCH (11:51)
--- NOTE | 2017-10-14 12:17 | Gastroenterology Progress Note ---
Progress Note Date of Service: Oct 14, 2017 Subjective Pt evaluation today including: conversation w/ patient, physical exam, chart review, lab review, review of studies, review of inpatient medication list CC Shortness of breath HPI Pt high O2 need overnight with some improvement post diuresis but still requiring mask. No abd pain. No stools since admit Review of Systems Respiratory: + shortness of breath Cardiac: No chest pain Medications Current Inpatient Medications Medications (Trade) Dose Ordered Sig/Kaitlynn Route Start Time Stop Time Status Last Admin Dose Admin Al Hydrox/Mg Hydrox/Simethicone (Maalox Max Susp) 15 ml Q4H PRN PO 10/12/17 15:00 11/11/17 14:59 10/13/17 13:38 15 ML Magnesium Hydroxide (Milk Of Magnesia Susp) 30 ml Q12H PRN PO 10/12/17 15:00 11/11/17 14:59 Ondansetron HCl (Zofran Inj) 4 mg Q6H PRN IV 10/12/17 15:00 11/11/17 14:59 10/13/17 13:38 4 MG Nitroglycerin (Nitrostat Tab) 0.4 mg UD PRN SL 10/12/17 15:00 11/11/17 14:59 Morphine Sulfate (MoRPHine SULFATE INJ) 2 mg Q30M PRN IV 10/12/17 15:00 10/26/17 14:59 10/14/17 09:42 2 MG Polyethylene (Miralax Powder Packet) 17 gm DAILY PRN PO 10/12/17 15:00 11/11/17 14:59 Acetaminophen (Tylenol Tab) 650 mg Q6 PRN PO 10/12/17 15:00 11/11/17 14:59 10/14/17 09:42 650 MG Amiodarone HCl (Cordarone Tab) 200 mg DAILY PO 10/13/17 09:00 11/12/17 08:59 10/14/17 08:03 200 MG Atorvastatin Calcium (Lipitor Tab) 80 mg DAILY PO 10/13/17 09:00 11/12/17 08:59 10/14/17 08:01 80 MG Cholecalciferol (Vitamin D Tab) 1,000 inter.unit QAM PO 10/13/17 09:00 11/12/17 08:59 10/14/17 08:01 1,000 INTER.UNIT Magnesium Oxide (Mag-Ox Tab) 400 mg QAM PO 10/13/17 09:00 11/12/17 08:59 10/14/17 08:01 400 MG Metoprolol Succinate (Toprol Xl Tab) 12.5 mg DAILY PO 10/13/17 09:00 11/12/17 08:59 10/13/17 08:12 12.5 MG Multivitamins (Multivitamin Tab) 1 tab QAM PO 10/13/17 09:00 11/12/17 08:59 10/14/17 11:51 1 TAB Sertraline HCl (Zoloft Tab) 75 mg QAM PO 10/13/17 09:00 11/12/17 08:59 10/14/17 08:03 75 MG Bimatoprost (Lumigan 0.01%) 1 drops HS OP 10/12/17 21:00 11/11/17 20:59 10/13/17 20:42 1 DROPS Ferrous Sulfate (Feosol Tab) 325 mg BIDM PO 10/12/17 16:45 11/11/17 17:59 10/14/17 08:03 325 MG Pantoprazole Sodium 40 mg/ Syringe 10 ml @ 5 mls/min Q12@0900,2100 IV 10/12/17 21:00 11/11/17 20:59 10/14/17 08:01 5 MLS/MIN Furosemide 40 mg/ Albumin Human 54 ml @ 54 mls/hr Q6H IV 10/14/17 02:00 10/14/17 14:59 10/14/17 08:05 54 MLS/HR Objective Vital Signs Date Time Temp Pulse Resp B/P (MAP) Pulse Ox O2 Delivery O2 Flow Rate FiO2 10/14/17 11:56 36.4 78 18 91/56 (68) 97 Oxymask 6.0 10/14/17 09:39 84 20 103/46 (65) 95 Oxymask 6.0 10/14/17 08:00 Oxymask 6.0 10/14/17 07:56 36.7 78 22 90/62 (71) 94 Oxymask 6.0 10/14/17 04:00 Oxymask 15.0 10/14/17 03:43 36.7 84 23 94/51 (65) 90 Oxymask 15.0 10/13/17 23:59 Oxymask 6.0 10/13/17 23:01 36.8 72 18 95/51 (66) 90 Oxymask 6.0 10/13/17 20:00 91 Oxymask 5.0 10/13/17 19:09 36.9 72 24 103/55 (71) 94 Oxymask 6.0 10/13/17 16:00 91 Nasal Cannula 3.0 10/13/17 15:51 36.7 73 22 107/55 (72) 91 Nasal Cannula 3.0 10/13/17 12:25 36.7 69 21 106/59 (75) 90 Room Air Physical Exam General Appearance: WD/WN, no apparent distress Respiratory/Chest: lungs clear, normal breath sounds Cardiovascular: no murmur Abdomen: normal bowel sounds, non tender, soft, no organomegaly Neurologic/Psych: alert, normal mood/affect, oriented x 3 Skin: normal color Laboratory Results Last 24 Hours Test 10/13/17 16:18 10/13/17 16:29 10/13/17 21:24 10/14/17 01:10 Troponin I 5.950 ng/ml Bedside Glucose 97 mg/dl 109 mg/dl Arterial Blood pH 7.32 Arterial Blood Partial Pressure CO2 51 mmHg Arterial Blood Partial Pressure O2 61 mm/Hg Arterial Blood HCO3 26 mmol/L Arterial Blood Oxygen Saturation 86.6 % Arterial Blood Base Excess -0.7 mEq/L Arterial Blood Gas Delivery 15L Chandler Test POS Test 10/14/17 01:17 10/14/17 06:27 10/14/17 06:52 10/14/17 11:12 White Blood Count 9.52 K/uL Red Blood Count 2.94 M/uL Hemoglobin 8.0 g/dL 7.6 g/dL Hematocrit 26.3 % 25.0 % Mean Corpuscular Volume 89.5 fL Mean Corpuscular Hemoglobin 27.2 pg Mean Corpuscular Hemoglobin Concent 30.4 g/dl Platelet Count 217 K/uL Mean Platelet Volume 9.8 fL Neutrophils (%) (Auto) 88.0 % Lymphocytes (%) (Auto) 5.1 % Monocytes (%) (Auto) 6.3 % Eosinophils (%) (Auto) 0.2 % Basophils (%) (Auto) 0.1 % Neutrophils # (Auto) 8.37 K/uL Lymphocytes # (Auto) 0.49 K/uL Monocytes # (Auto) 0.60 K/uL Eosinophils # (Auto) 0.02 K/uL Basophils # (Auto) 0.01 K/uL RDW Standard Deviation 57.2 fL RDW Coefficient of Variation 17.5 % Immature Granulocyte % (Auto) 0.3 % Immature Granulocyte # (Auto) 0.03 K/uL Polychromasia 1+ Hypochromasia PRESENT Anisocytosis PRESENT Tear Drop Cells OCCASIONAL Sodium Level 137 mmol/L Potassium Level 3.9 mmol/L Chloride Level 104 mmol/L Carbon Dioxide Level 26 mmol/L Anion Gap 7.0 mmol/L Blood Urea Nitrogen 21 mg/dl Creatinine 0.88 mg/dl Est Creatinine Clear Calc Drug Dose 70.2 ml/min Estimated GFR () 98.8 Estimated GFR (Non- 85.2 BUN/Creatinine Ratio 23.8 Random Glucose 94 mg/dl Calcium Level 7.8 mg/dl Total Bilirubin 0.4 mg/dl 0.5 mg/dl Aspartate Amino Transf (AST/SGOT) 45 U/L 35 U/L Alanine Aminotransferase (ALT/SGPT) 36 U/L 30 U/L Alkaline Phosphatase 141 U/L 128 U/L Total Protein 5.4 gm/dl 5.2 gm/dl Albumin 2.4 gm/dl 2.5 gm/dl Globulin 3.0 gm/dl Albumin/Globulin Ratio 0.8 Bedside Glucose 101 mg/dl 100 mg/dl Prothrombin Time 14.5 SECONDS Prothromb Time International Ratio 1.4 Activated Partial Thromboplast Time 25.1 SECONDS Partial Thromboplastin Ratio 1.0 Direct Bilirubin 0.2 mg/dl Assessment and Plan Anemia stable melena none at present elevated LFTS --AST better, alk phos worse follow shortness of breath elevated troponin Continue Protonix bid. No stools and Hgb stable so no active bleeding. Once cardiac and pulmonary status optimized recommend EGD with SB enteroscopy.
[2017-10-14 13:24] LABS: HEMATOCRIT 24.1 % (42-52); HEMOGLOBIN 7.5 g/dL (14.0-18.0)
--- NOTE | 2017-10-14 15:23 | Cardiology Follow-Up ---
Subjective Subjective Date of Service: Oct 14, 2017. Pt evaluation today including: conversation w/ patient, physical exam, chart review, lab review, review of studies, review of inpatient medication list Additional Details: Patient became increasingly hypoxic overnight requiring 15L face mask --> started on lasix with albumin - has received a total of 3 doses. Negative more than 1L since starting lasix. Currently states breathing better but still requiring 6L face mask to maintain sats in 90s. Denies chest pain. No hematochezia or melantic stools. Tele reviewed -- occasional bigeminy. otherwise sinus Problem List Medical Problems: (1) Acute GI bleeding Status: Acute (2) Alkaline phosphatase elevation Status: Acute (3) Anemia Status: Acute (4) Anticoagulated Status: Acute (5) Chest pain Status: Acute (6) Epistaxis, recurrent Status: Acute (7) Gastritis Status: Acute (8) Hypotension Status: Acute (9) On continuous oral anticoagulation Status: Acute (10) Pleural effusion, bilateral Status: Acute (11) Symptomatic anemia Status: Acute Review of Systems Constitutional: + fatigue Respiratory: + shortness of breath Cardiac: No chest pain Abdomen: No pain Heme: + abnormal bleeding/bruising Skin: No rash Objective Vital Signs Last Vital Signs Documentation Date Time Temp Pulse Resp B/P (MAP) Pulse Ox O2 Delivery O2 Flow Rate FiO2 10/14/17 14:14 67 20 82/49 (60) 99 Oxymask 6.0 10/14/17 11:56 36.4 Physical Exam: General Appearance: no apparent distress ENT: hearing grossly normal Respiratory/Chest: normal breath sounds, + decreased breath sounds (at bases), + rales (few scant at bases) Cardiovascular: regular rate, rhythm, no edema, + JVD, + systolic murmur (2/6 NAYANA) Abdomen: non tender, soft Extremities: normal inspection, no pedal edema, no calf tenderness Neurologic/Psychiatric: alert, normal mood/affect, oriented x 3 Skin: warm/dry, no rash Assessment and Plan 1. Acute blood loss anemia 2. Elevated troponin 3. Paroxysmal atrial fibrillation previously on anticoagulation 4. Acute on chronic systolic heart failure 5. Multivessel coronary artery disease/Ischemic cardiomyopathy 6. Moderate aortic stenosis, [id number] aortic regurgitation, mild mitral regurgitation 7. Pleural effusion status post decortication 8. Pulmonary hypertension Remains hypoxic with pulmonary/systemic venous congestion on exam. Responding to diuretics. Renal function stable Post 4u PRBC. No active bleeding. Hb stable/slowly trending down. No chest pain. Troponin peaked. LV function unchanged from 07/2017 -- Continue diuresis. Stop Albumin. Agree with lasix 40mg IV BID. Follow-up I /Os, lytes. -- continue to hold prior Eliquis and aspirin -- target hemoglobin >8 -- would continue to hold antihypertensives for now -- continue amiodarone -- EGD OK from a cardiac standpoint when acute heart failure improved. Continued [facility] stay due to: abnormal vital signs Medications: Current Inpatient Medications Medications (Trade) Dose Ordered Sig/Kaitlynn Route Start Time Stop Time Status Last Admin Dose Admin Al Hydrox/Mg Hydrox/Simethicone (Maalox Max Susp) 15 ml Q4H PRN PO 10/12/17 15:00 11/11/17 14:59 10/13/17 13:38 15 ML Magnesium Hydroxide (Milk Of Magnesia Susp) 30 ml Q12H PRN PO 10/12/17 15:00 11/11/17 14:59 Ondansetron HCl (Zofran Inj) 4 mg Q6H PRN IV 10/12/17 15:00 11/11/17 14:59 10/13/17 13:38 4 MG Nitroglycerin (Nitrostat Tab) 0.4 mg UD PRN SL 10/12/17 15:00 11/11/17 14:59 Morphine Sulfate (MoRPHine SULFATE INJ) 2 mg Q30M PRN IV 10/12/17 15:00 10/26/17 14:59 10/14/17 09:42 2 MG Polyethylene (Miralax Powder Packet) 17 gm DAILY PRN PO 10/12/17 15:00 11/11/17 14:59 Acetaminophen (Tylenol Tab) 650 mg Q6 PRN PO 10/12/17 15:00 11/11/17 14:59 10/14/17 09:42 650 MG Amiodarone HCl (Cordarone Tab) 200 mg DAILY PO 10/13/17 09:00 11/12/17 08:59 10/14/17 08:03 200 MG Atorvastatin Calcium (Lipitor Tab) 80 mg DAILY PO 10/13/17 09:00 11/12/17 08:59 10/14/17 08:01 80 MG Cholecalciferol (Vitamin D Tab) 1,000 inter.unit QAM PO 10/13/17 09:00 11/12/17 08:59 10/14/17 08:01 1,000 INTER.UNIT Magnesium Oxide (Mag-Ox Tab) 400 mg QAM PO 10/13/17 09:00 11/12/17 08:59 10/14/17 08:01 400 MG Metoprolol Succinate (Toprol Xl Tab) 12.5 mg DAILY PO 10/13/17 09:00 11/12/17 08:59 10/13/17 08:12 12.5 MG Multivitamins (Multivitamin Tab) 1 tab QAM PO 10/13/17 09:00 11/12/17 08:59 10/14/17 11:51 1 TAB Sertraline HCl (Zoloft Tab) 75 mg QAM PO 10/13/17 09:00 11/12/17 08:59 10/14/17 08:03 75 MG Bimatoprost (Lumigan 0.01%) 1 drops HS OP 10/12/17 21:00 11/11/17 20:59 10/13/17 20:42 1 DROPS Ferrous Sulfate (Feosol Tab) 325 mg BIDM PO 10/12/17 16:45 11/11/17 17:59 10/14/17 08:03 325 MG Pantoprazole Sodium 40 mg/ Syringe 10 ml @ 5 mls/min Q12@0900,2100 IV 10/12/17 21:00 11/11/17 20:59 10/14/17 08:01 5 MLS/MIN Furosemide 40 mg/ Syringe 4 ml @ 4 mls/min BID IV 10/14/17 21:00 11/13/17 20:59 Lab Results: 10/14/17 01:17 Red Blood Count 2.94, Mean Corpuscular Volume 89.5, Mean Corpuscular Hemoglobin 27.2, Mean Corpuscular Hemoglobin Concent 30.4, Mean Platelet Volume 9.8, Neutrophils (%) (Auto) 88.0, Lymphocytes (%) (Auto) 5.1, Monocytes (%) (Auto) 6.3, Eosinophils (%) (Auto) 0.2, Basophils (%) (Auto) 0.1, Neutrophils # (Auto) 8.37, Lymphocytes # (Auto) 0.49, Monocytes # (Auto) 0.60, Eosinophils # (Auto) 0.02, Basophils # (Auto) 0.01 10/14/17 13:08 10/14/17 01:17 Test 10/13/17 16:18 10/14/17 01:10 10/14/17 01:17 10/14/17 06:52 Troponin I 5.950 ng/ml (0-0.045) Arterial Blood pH 7.32 (7.35-7.45) Arterial Blood Partial Pressure CO2 51 mmHg (35-46) Arterial Blood Partial Pressure O2 61 mm/Hg (80-95) Arterial Blood HCO3 26 mmol/L (19-24) Arterial Blood Oxygen Saturation 86.6 % (90-95) Arterial Blood Base Excess -0.7 mEq/L (-9-1.8) Arterial Blood Gas Delivery 15L Chandler Test POS (POS) White Blood Count 9.52 K/uL (4.8-10.8) Red Blood Count 2.94 M/uL (4.7-6.1) Hemoglobin 8.0 g/dL (14.0-18.0) Hematocrit 26.3 % (42-52) Mean Corpuscular Volume 89.5 fL (80-100) Mean Corpuscular Hemoglobin 27.2 pg (25-34) Mean Corpuscular Hemoglobin Concent 30.4 g/dl (32-36) Platelet Count 217 K/uL (130-400) Mean Platelet Volume 9.8 fL (7.4-10.4) Neutrophils (%) (Auto) 88.0 % Lymphocytes (%) (Auto) 5.1 % Monocytes (%) (Auto) 6.3 % Eosinophils (%) (Auto) 0.2 % Basophils (%) (Auto) 0.1 % Neutrophils # (Auto) 8.37 K/uL (1.4-6.5) Lymphocytes # (Auto) 0.49 K/uL (1.2-3.4) Monocytes # (Auto) 0.60 K/uL (0.11-0.59) Eosinophils # (Auto) 0.02 K/uL (0-0.5) Basophils # (Auto) 0.01 K/uL (0-0.2) RDW Standard Deviation 57.2 fL (36.4-46.3) RDW Coefficient of Variation 17.5 % (11.5-14.5) Immature Granulocyte % (Auto) 0.3 % Immature Granulocyte # (Auto) 0.03 K/uL (0.00-0.02) Polychromasia 1+ Hypochromasia PRESENT Anisocytosis PRESENT Tear Drop Cells OCCASIONAL Anion Gap 7.0 mmol/L (3-11) Est Creatinine Clear Calc Drug Dose 70.2 ml/min Estimated GFR () 98.8 Estimated GFR (Non- 85.2 BUN/Creatinine Ratio 23.8 (10-20) Calcium Level 7.8 mg/dl (8.5-10.1) Globulin 3.0 gm/dl (2.5-4.0) Albumin/Globulin Ratio 0.8 (0.9-2) Prothrombin Time 14.5 SECONDS (9.0-12.0) Prothromb Time International Ratio 1.4 (0.9-1.1) Activated Partial Thromboplast Time 25.1 SECONDS (21.0-31.0) Partial Thromboplastin Ratio 1.0 Total Bilirubin 0.5 mg/dl (0.2-1) Direct Bilirubin 0.2 mg/dl (0-0.2) Aspartate Amino Transf (AST/SGOT) 35 U/L (15-37) Alanine Aminotransferase (ALT/SGPT) 30 U/L (12-78) Alkaline Phosphatase 128 U/L (45-117) Total Protein 5.2 gm/dl (6.4-8.2) Albumin 2.5 gm/dl (3.4-5.0) Test 10/14/17 11:12 Bedside Glucose 100 mg/dl (70-99)
[2017-10-14 19:30] LABS: HEMATOCRIT 24.1 % (42-52); HEMOGLOBIN 7.5 g/dL (14.0-18.0)
[2017-10-14] MEDS: BIMATOPROST 0.01% OP SOLN 2.5 ML BTL OP SCH (21:57)
[2017-10-14] MEDS: FUROSEMIDE INJ 40 MG in SYRINGE 0 ML IV SCH (21:57)
[2017-10-15 04:01] VITALS: BP 97/48; PULSE 86; TEMP 36.4; O2SAT 96
[2017-10-15 05:54] LABS: BASO % 0.3 %; BASO ABS # 0.02 K/uL (0-0.2); EOS % 0.7 %; EOS ABS # 0.05 K/uL (0-0.5); HEMATOCRIT 24.9 % (42-52); HEMOGLOBIN 7.5 g/dL (14.0-18.0); IG# 0.02 K/uL (0.00-0.02); LYMPH % 7.7 %; LYMPH ABS # 0.54 K/uL (1.2-3.4); MEAN CELL VOLUME 91.2 fL (80-100); MEAN CORPUSCULAR HEMOGLOBIN 27.5 pg (25-34); MEAN CORPUSCULAR HGB CONC 30.1 g/dl (32-36); MEAN PLATELET VOLUME 9.1 fL (7.4-10.4); MONO % 6.8 %; MONO ABS # 0.48 K/uL (0.11-0.59); NEUT % 84.2 %; NEUT ABS # 5.94 K/uL (1.4-6.5); PLATELET COUNT 179 K/uL (130-400); RED CELL DISTRIBUTION WIDTH CV 17.3 % (11.5-14.5); RED CELL DISTRIBUTION WIDTH SD 57.2 fL (36.4-46.3); WHITE BLOOD COUNT 7.05 K/uL (4.8-10.8)
[2017-10-15 06:10] LABS: INR 1.6 (0.9-1.1)
[2017-10-15 06:43] LABS: ALBUMIN 2.5 gm/dl (3.4-5.0); CREATININE 0.87 mg/dl (0.60-1.40); TOTAL PROTEIN 5.4 gm/dl (6.4-8.2)
[2017-10-15 06:51] VITALS: BP 98/52; PULSE 83; TEMP 36.7; O2SAT 95
[2017-10-15] MEDS ORDERED: POTASSIUM CHLORIDE 20 MEQ TABCR PO STA (07:22)
[2017-10-15] MEDS: SERTRALINE HCL 50 MG TAB PO SCH (07:47)
[2017-10-15] MEDS: ATORVASTATIN 40 MG TAB PO SCH (07:47)
[2017-10-15] MEDS: AMIODARONE 200 MG TAB PO SCH (07:47)
[2017-10-15] MEDS: FERROUS SULFATE 325 MG TAB PO SCH ×2 (07:47→16:58)
[2017-10-15] MEDS: CHOLECALCIFEROL 1000 INTER.UNIT TAB PO SCH (07:47)
[2017-10-15] MEDS: MULTIVITAMIN TAB PO SCH (07:47)
[2017-10-15] MEDS: PANTOprazole INJ 40 MG in SYRINGE 0 ML IV SCH ×2 (07:47→20:10)
[2017-10-15] MEDS: MAGNESIUM OXIDE 400 MG TAB PO SCH (07:48)
[2017-10-15] MEDS: FUROSEMIDE INJ 40 MG in SYRINGE 0 ML IV SCH ×2 (08:22→20:10)
[2017-10-15] MEDS: METOPROLOL SUCC 25MG EXT REL TAB PO SCH (09:00)
--- NOTE | 2017-10-15 11:29 | Gastroenterology Progress Note ---
Progress Note Date of Service: Oct 15, 2017 Subjective Pt evaluation today including: conversation w/ patient, physical exam, chart review, lab review, review of studies, review of inpatient medication list cc f/u GI bleeding. HPI Pt states no stools yesterday or today. No abd pain. Tolerating clears. Less SOB. Review of Systems Respiratory: + shortness of breath Cardiac: No chest pain Medications Current Inpatient Medications Medications (Trade) Dose Ordered Sig/Kaitlynn Route Start Time Stop Time Status Last Admin Dose Admin Al Hydrox/Mg Hydrox/Simethicone (Maalox Max Susp) 15 ml Q4H PRN PO 10/12/17 15:00 11/11/17 14:59 10/13/17 13:38 15 ML Magnesium Hydroxide (Milk Of Magnesia Susp) 30 ml Q12H PRN PO 10/12/17 15:00 11/11/17 14:59 Ondansetron HCl (Zofran Inj) 4 mg Q6H PRN IV 10/12/17 15:00 11/11/17 14:59 10/13/17 13:38 4 MG Nitroglycerin (Nitrostat Tab) 0.4 mg UD PRN SL 10/12/17 15:00 11/11/17 14:59 Morphine Sulfate (MoRPHine SULFATE INJ) 2 mg Q30M PRN IV 10/12/17 15:00 10/26/17 14:59 10/14/17 09:42 2 MG Polyethylene (Miralax Powder Packet) 17 gm DAILY PRN PO 10/12/17 15:00 11/11/17 14:59 Acetaminophen (Tylenol Tab) 650 mg Q6 PRN PO 10/12/17 15:00 11/11/17 14:59 10/14/17 09:42 650 MG Amiodarone HCl (Cordarone Tab) 200 mg DAILY PO 10/13/17 09:00 11/12/17 08:59 10/15/17 07:47 200 MG Atorvastatin Calcium (Lipitor Tab) 80 mg DAILY PO 10/13/17 09:00 11/12/17 08:59 10/15/17 07:47 80 MG Cholecalciferol (Vitamin D Tab) 1,000 inter.unit QAM PO 10/13/17 09:00 11/12/17 08:59 10/15/17 07:47 1,000 INTER.UNIT Magnesium Oxide (Mag-Ox Tab) 400 mg QAM PO 10/13/17 09:00 11/12/17 08:59 10/15/17 07:48 400 MG Metoprolol Succinate (Toprol Xl Tab) 12.5 mg DAILY PO 10/13/17 09:00 11/12/17 08:59 10/13/17 08:12 12.5 MG Multivitamins (Multivitamin Tab) 1 tab QAM PO 10/13/17 09:00 11/12/17 08:59 10/15/17 07:47 1 TAB Sertraline HCl (Zoloft Tab) 75 mg QAM PO 10/13/17 09:00 11/12/17 08:59 10/15/17 07:47 75 MG Bimatoprost (Lumigan 0.01%) 1 drops HS OP 10/12/17 21:00 11/11/17 20:59 10/14/17 21:57 1 DROPS Ferrous Sulfate (Feosol Tab) 325 mg BIDM PO 10/12/17 16:45 11/11/17 17:59 10/15/17 07:47 325 MG Pantoprazole Sodium 40 mg/ Syringe 10 ml @ 5 mls/min Q12@0900,2100 IV 10/12/17 21:00 11/11/17 20:59 10/15/17 07:47 5 MLS/MIN Furosemide 40 mg/ Syringe 4 ml @ 4 mls/min BID IV 10/14/17 21:00 11/13/17 20:59 10/15/17 08:22 4 MLS/MIN Objective Vital Signs Date Time Temp Pulse Resp B/P (MAP) Pulse Ox O2 Delivery O2 Flow Rate FiO2 10/15/17 08:05 Oxymask 5.0 10/15/17 06:51 36.7 83 18 98/52 (67) 95 Nasal Cannula 4.0 10/15/17 04:01 36.4 86 21 97/48 (64) 96 Nasal Cannula 4.0 10/15/17 04:00 Nasal Cannula 4.0 10/14/17 23:59 Oxymask 8.0 10/14/17 23:57 36.6 85 20 93/49 (64) 98 Oxymask 7.0 10/14/17 20:00 Oxymask 6.0 10/14/17 19:20 36.8 70 22 93/50 (64) 96 Oxymask 4.0 10/14/17 16:00 92 Oxymask 6.0 10/14/17 15:50 36.5 72 22 99/52 (68) 98 Oxymask 6.0 10/14/17 14:14 67 20 82/49 (60) 99 Oxymask 6.0 10/14/17 12:00 Oxymask 6.0 10/14/17 11:56 36.4 78 18 91/56 (68) 97 Oxymask 6.0 Physical Exam General Appearance: WD/WN, no apparent distress Respiratory/Chest: lungs clear, normal breath sounds Cardiovascular: no edema, + systolic murmur Abdomen: normal bowel sounds, non tender, soft, no organomegaly Neurologic/Psych: normal mood/affect, oriented x 3 Skin: normal color Laboratory Results Last 24 Hours Test 10/14/17 13:08 10/14/17 16:18 10/14/17 19:16 10/15/17 05:26 Hemoglobin 7.5 g/dL 7.5 g/dL 7.5 g/dL Hematocrit 24.1 % 24.1 % 24.9 % Bedside Glucose 104 mg/dl White Blood Count 7.05 K/uL Red Blood Count 2.73 M/uL Mean Corpuscular Volume 91.2 fL Mean Corpuscular Hemoglobin 27.5 pg Mean Corpuscular Hemoglobin Concent 30.1 g/dl Platelet Count 179 K/uL Mean Platelet Volume 9.1 fL Neutrophils (%) (Auto) 84.2 % Lymphocytes (%) (Auto) 7.7 % Monocytes (%) (Auto) 6.8 % Eosinophils (%) (Auto) 0.7 % Basophils (%) (Auto) 0.3 % Neutrophils # (Auto) 5.94 K/uL Lymphocytes # (Auto) 0.54 K/uL Monocytes # (Auto) 0.48 K/uL Eosinophils # (Auto) 0.05 K/uL Basophils # (Auto) 0.02 K/uL RDW Standard Deviation 57.2 fL RDW Coefficient of Variation 17.3 % Immature Granulocyte % (Auto) 0.3 % Immature Granulocyte # (Auto) 0.02 K/uL Tear Drop Cells 1+ Ovalocytes 1+ Prothrombin Time 16.2 SECONDS Prothromb Time International Ratio 1.6 Sodium Level 135 mmol/L Potassium Level 3.0 mmol/L Chloride Level 98 mmol/L Carbon Dioxide Level 33 mmol/L Anion Gap 4.0 mmol/L Blood Urea Nitrogen 13 mg/dl Creatinine 0.87 mg/dl Est Creatinine Clear Calc Drug Dose 72.7 ml/min Estimated GFR () 99.2 Estimated GFR (Non- 85.6 BUN/Creatinine Ratio 15.4 Random Glucose 99 mg/dl Calcium Level 8.0 mg/dl Total Bilirubin 0.7 mg/dl Aspartate Amino Transf (AST/SGOT) 33 U/L Alanine Aminotransferase (ALT/SGPT) 30 U/L Alkaline Phosphatase 120 U/L Total Protein 5.4 gm/dl Albumin 2.5 gm/dl Globulin 2.9 gm/dl Albumin/Globulin Ratio 0.9 Assessment and Plan Anemia stable melena none at present elevated LFTS --improved, follow shortness of breath elevated troponin Continue Protonix bid. No stools and Hgb stable so no active bleeding. Once cardiac and pulmonary status optimized recommend EGD with SB enteroscopy may be outpt. Advance to solid diet since no active bleeding.
[2017-10-15 11:38] VITALS: BP 97/46; PULSE 79; TEMP 36.8; O2SAT 99
--- NOTE | 2017-10-15 12:50 | Family Medicine Progress Note ---
Progress Note Date of Service Oct 15, 2017. Subjective No new complaints. Breathing is improved. Denies chest pain or abdominal pain or new bleeding. Eating/voiding well. Desires to discharge. ROS See HPI for pertinent positives and negatives. Medications Current Inpatient Medications Medications (Trade) Dose Ordered Sig/Kaitlynn Route Start Time Stop Time Status Last Admin Dose Admin Al Hydrox/Mg Hydrox/Simethicone (Maalox Max Susp) 15 ml Q4H PRN PO 10/12/17 15:00 11/11/17 14:59 10/13/17 13:38 15 ML Magnesium Hydroxide (Milk Of Magnesia Susp) 30 ml Q12H PRN PO 10/12/17 15:00 11/11/17 14:59 Ondansetron HCl (Zofran Inj) 4 mg Q6H PRN IV 10/12/17 15:00 11/11/17 14:59 10/13/17 13:38 4 MG Nitroglycerin (Nitrostat Tab) 0.4 mg UD PRN SL 10/12/17 15:00 11/11/17 14:59 Morphine Sulfate (MoRPHine SULFATE INJ) 2 mg Q30M PRN IV 10/12/17 15:00 10/26/17 14:59 10/14/17 09:42 2 MG Polyethylene (Miralax Powder Packet) 17 gm DAILY PRN PO 10/12/17 15:00 11/11/17 14:59 Acetaminophen (Tylenol Tab) 650 mg Q6 PRN PO 10/12/17 15:00 11/11/17 14:59 10/14/17 09:42 650 MG Amiodarone HCl (Cordarone Tab) 200 mg DAILY PO 10/13/17 09:00 11/12/17 08:59 10/15/17 07:47 200 MG Atorvastatin Calcium (Lipitor Tab) 80 mg DAILY PO 10/13/17 09:00 11/12/17 08:59 10/15/17 07:47 80 MG Cholecalciferol (Vitamin D Tab) 1,000 inter.unit QAM PO 10/13/17 09:00 11/12/17 08:59 10/15/17 07:47 1,000 INTER.UNIT Magnesium Oxide (Mag-Ox Tab) 400 mg QAM PO 10/13/17 09:00 11/12/17 08:59 10/15/17 07:48 400 MG Metoprolol Succinate (Toprol Xl Tab) 12.5 mg DAILY PO 10/13/17 09:00 11/12/17 08:59 10/13/17 08:12 12.5 MG Multivitamins (Multivitamin Tab) 1 tab QAM PO 10/13/17 09:00 11/12/17 08:59 10/15/17 07:47 1 TAB Sertraline HCl (Zoloft Tab) 75 mg QAM PO 10/13/17 09:00 11/12/17 08:59 10/15/17 07:47 75 MG Bimatoprost (Lumigan 0.01%) 1 drops HS OP 10/12/17 21:00 11/11/17 20:59 10/14/17 21:57 1 DROPS Ferrous Sulfate (Feosol Tab) 325 mg BIDM PO 10/12/17 16:45 11/11/17 17:59 10/15/17 16:58 325 MG Pantoprazole Sodium 40 mg/ Syringe 10 ml @ 5 mls/min Q12@0900,2100 IV 10/12/17 21:00 11/11/17 20:59 10/15/17 07:47 5 MLS/MIN Furosemide 40 mg/ Syringe 4 ml @ 4 mls/min BID IV 10/14/17 21:00 11/13/17 20:59 10/15/17 08:22 4 MLS/MIN Objective Vital Signs Date Time Temp Pulse Resp B/P (MAP) Pulse Ox O2 Delivery O2 Flow Rate FiO2 10/15/17 19:53 36.6 79 18 106/55 (72) 88 4.0 10/15/17 16:02 Nasal Cannula 4.0 10/15/17 15:19 36.6 81 22 90/53 (65) 90 Nasal Cannula 4.0 10/15/17 12:02 Nasal Cannula 4.0 10/15/17 11:38 36.8 79 20 97/46 (63) 99 10/15/17 08:05 Nasal Cannula 5.0 10/15/17 06:51 36.7 83 18 98/52 (67) 95 Nasal Cannula 4.0 10/15/17 04:01 36.4 86 21 97/48 (64) 96 Nasal Cannula 4.0 10/15/17 04:00 Nasal Cannula 4.0 10/14/17 23:59 Oxymask 8.0 10/14/17 23:57 36.6 85 20 93/49 (64) 98 Oxymask 7.0 Physical Exam Notes: GENERAL: Awake, alert, in no distress. Nasal cannula in place. EYES: Normal conjunctiva. Sclera non-icteric. NECK: Supple. No JVD. RESPIRATORY: Diminished breath sounds at bases bilaterally. CARDIAC: Regular rate, normal rhythm. Extremities warm and well perfused. Pulses equal. +systolic murmur heard best over RT upper sternal border ABDOMEN: Soft, non-distended. No tenderness to palpation. No rebound or guarding. No masses. LOWER EXTREMITIES: Calves are equal size bilaterally and non-tender. No edema. No discoloration. NEURO: No motor deficits noted. + Dysphasia SKIN: No rash or jaundice noted. Laboratory Results 10/15/17 05:26 Red Blood Count 2.73, Mean Corpuscular Volume 91.2, Mean Corpuscular Hemoglobin 27.5, Mean Corpuscular Hemoglobin Concent 30.1, Mean Platelet Volume 9.1, Neutrophils (%) (Auto) 84.2, Lymphocytes (%) (Auto) 7.7, Monocytes (%) (Auto) 6.8, Eosinophils (%) (Auto) 0.7, Basophils (%) (Auto) 0.3, Neutrophils # (Auto) 5.94, Lymphocytes # (Auto) 0.54, Monocytes # (Auto) 0.48, Eosinophils # (Auto) 0.05, Basophils # (Auto) 0.02 10/15/17 05:26 Test 10/15/17 05:26 White Blood Count 7.05 K/uL (4.8-10.8) Red Blood Count 2.73 M/uL (4.7-6.1) Hemoglobin 7.5 g/dL (14.0-18.0) Hematocrit 24.9 % (42-52) Mean Corpuscular Volume 91.2 fL (80-100) Mean Corpuscular Hemoglobin 27.5 pg (25-34) Mean Corpuscular Hemoglobin Concent 30.1 g/dl (32-36) Platelet Count 179 K/uL (130-400) Mean Platelet Volume 9.1 fL (7.4-10.4) Neutrophils (%) (Auto) 84.2 % Lymphocytes (%) (Auto) 7.7 % Monocytes (%) (Auto) 6.8 % Eosinophils (%) (Auto) 0.7 % Basophils (%) (Auto) 0.3 % Neutrophils # (Auto) 5.94 K/uL (1.4-6.5) Lymphocytes # (Auto) 0.54 K/uL (1.2-3.4) Monocytes # (Auto) 0.48 K/uL (0.11-0.59) Eosinophils # (Auto) 0.05 K/uL (0-0.5) Basophils # (Auto) 0.02 K/uL (0-0.2) RDW Standard Deviation 57.2 fL (36.4-46.3) RDW Coefficient of Variation 17.3 % (11.5-14.5) Immature Granulocyte % (Auto) 0.3 % Immature Granulocyte # (Auto) 0.02 K/uL (0.00-0.02) Tear Drop Cells 1+ Ovalocytes 1+ Prothrombin Time 16.2 SECONDS (9.0-12.0) Prothromb Time International Ratio 1.6 (0.9-1.1) Anion Gap 4.0 mmol/L (3-11) Est Creatinine Clear Calc Drug Dose 72.7 ml/min Estimated GFR () 99.2 Estimated GFR (Non- 85.6 BUN/Creatinine Ratio 15.4 (10-20) Calcium Level 8.0 mg/dl (8.5-10.1) Total Bilirubin 0.7 mg/dl (0.2-1) Aspartate Amino Transf (AST/SGOT) 33 U/L (15-37) Alanine Aminotransferase (ALT/SGPT) 30 U/L (12-78) Alkaline Phosphatase 120 U/L (45-117) Total Protein 5.4 gm/dl (6.4-8.2) Albumin 2.5 gm/dl (3.4-5.0) Globulin 2.9 gm/dl (2.5-4.0) Albumin/Globulin Ratio 0.9 (0.9-2) Assessment and Plan 71M admitted 18Mar for h/o SOB found to have profound anemia and GIB while on Eliquis. Transfused with 4UPRBCs and 2UFFP in ED. 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 Acute blood loss anemia - GIB requiring tranfusion with 4 units PRBC and 2 units FFP in total. GI: scope in outpatient setting. Continue PPI BID. - pt has h/o chronic iron deficient anemia followed by Heme/onc, with iron transfusion treatment in recent past. However during prior hospitalization was started on anticoagulation for paroxysmal AFIB. No ale active bleeding, and is responding well to transfusion. Eliquis and ASA have been held, cardio following and agree, however will need to weigh pros/cons and risk/benefits of further anticoagulation. Hypoxemia - likely 2/2 fluid overload due to transfusions - Continue Lasix 40BID. Stable. Elevated troponin - probable NSTEMI, POA - Monitored until peak, as per cardiology. Thought to be due to cardiac injury in setting of profound anemia and hypotension on arrival. Low suspicion for acute coronary syndrome. Echo here shows no significant change to LV function from prior echo in Jul 2017. Hypotension on arrival - improving - 80/41 -> 107/55 last taken, improving with units of blood products. - Benazapril 10mg daily HELD - Toprol XL 12.5mg daily continued Paroxysmal AFIB - anticoagulation contraindicated at this time HELD - Amiodarone continued. Toprol XL contd. Currently sinus 60s-70s JAVIER on CKDII stable. Follow BMP. Depression: Continue Zoloft DVT prophylaxis: Chemical anticoagulation contraindicated due to anemia Code status: LEVEL I, FULL Dispo: From home, lives alone- PT/OT and CM consulted - Rehab - [facility] referral placed. Awaiting placement. Resident Physician Supervision Note: I interviewed and examined the patient. Discussed with Dr. García and agree with findings and plan as documented in the note. Any exceptions or clarifications are listed here: None Documented By: Aramis Cheatham continues to feel better with breathing, eating real food doing well no further GI blood loss vitals noted nad breathing unlabored less O2 than before no pallor or icterus acute/subacute hemorrhagic anemia w hypotension (early hemorrhagic shock) now improving in the setting of eliquis for afib -much more stable -endoscopic w/u as outpt in near but not emergent future as long as no evidence of rebleed -required 4 units thus far may need another, for now w CHF and lack of anemia sx , will hold on further transfusion acute on chronic systolic CHF -worse EF likely due to severe anemia/severe demand ischemia (?hopefully will recover with time) -diurese ongoing (improving but appears to still have some fluid overload) -fluid related to blood products obviously was necessary elevated troponin -no sx or EKG changes c/w KS. appearing to be severe demand ischemia due to profound anemia, med management, no sx, f/u echo after recovery AKF -related to anemia -improved s/p transfusion -following w diuresis possible severe protein calorie malnutrition -nutrition assistance appreciated close outpt f/u will be needed as well afib -stroke risk obviously remains; this was a life-altering level of bleed possibly making it preclude future anticoagulation; however, had he presented sooner in the course it wouldve simply been anemia requiring transfusion - will need ongoing vigilance and risks/benefit balance ongoing weighing for +/- eventual resumption of anticoagulation Continued [facility] stay due to: other Discharge planning: assisted facility Resident Tracking Resident Involvement: Resident Care Provided Care Provided: Adult Hospital Medicine
[2017-10-15 15:19] VITALS: BP 90/53; PULSE 81; TEMP 36.6; O2SAT 90
[2017-10-15 19:53] VITALS: BP 106/55; PULSE 79; TEMP 36.6; O2SAT 88
--- NOTE | 2017-10-15 20:02 | Cardiology Follow-Up ---
Subjective Subjective Date of Service: Oct 15, 2017. Pt evaluation today including: conversation w/ patient, physical exam, chart review, lab review, review of studies, review of inpatient medication list Additional Details: Denies chest pain. Breathing somewhat improved. No abd pain, N/V. No melanotic stools or hematochezia. Tele reviewed -- sinus rhythm. no events Problem List Medical Problems: (1) Acute GI bleeding Status: Acute (2) Alkaline phosphatase elevation Status: Acute (3) Anemia Status: Acute (4) Anticoagulated Status: Acute (5) Chest pain Status: Acute (6) Epistaxis, recurrent Status: Acute (7) Gastritis Status: Acute (8) Hypotension Status: Acute (9) On continuous oral anticoagulation Status: Acute (10) Pleural effusion, bilateral Status: Acute (11) Symptomatic anemia Status: Acute Review of Systems Constitutional: + fatigue Respiratory: + shortness of breath Cardiac: No chest pain Abdomen: No pain Heme: + abnormal bleeding/bruising Skin: No rash Objective Vital Signs Last Vital Signs Documentation Date Time Temp Pulse Resp B/P (MAP) Pulse Ox O2 Delivery O2 Flow Rate FiO2 10/15/17 19:53 36.6 79 18 106/55 (72) 88 4.0 10/15/17 16:02 Nasal Cannula Physical Exam: General Appearance: no apparent distress ENT: hearing grossly normal Respiratory/Chest: normal breath sounds, + decreased breath sounds (at bases), + rales (few scant at bases) Cardiovascular: regular rate, rhythm, no edema, + JVD, + systolic murmur (2/6 NAYANA) Abdomen: non tender, soft Extremities: normal inspection, no pedal edema, no calf tenderness Neurologic/Psychiatric: alert, normal mood/affect, oriented x 3 Skin: warm/dry, no rash Assessment and Plan 1. Acute blood loss anemia 2. Elevated troponin 3. Paroxysmal atrial fibrillation previously on anticoagulation 4. Acute on chronic systolic heart failure 5. Multivessel coronary artery disease/Ischemic cardiomyopathy 6. Moderate aortic stenosis, [id number] aortic regurgitation, mild mitral regurgitation 7. Pleural effusion status post decortication 8. Pulmonary hypertension Persistent congestion on exam and O2 requirement Responding to diuretics. Renal function stable No active bleeding. -- Agree with continued IV diuresis -- lasix 40mg IV BID. Follow-up I/Os, lytes. -- continue to hold prior Eliquis and aspirin -- continue amiodarone; tolerating low dose beta-salbador Continued [facility] stay due to: abnormal vital signs Medications: 10/15/17 05:26 Red Blood Count 2.73, Mean Corpuscular Volume 91.2, Mean Corpuscular Hemoglobin 27.5, Mean Corpuscular Hemoglobin Concent 30.1, Mean Platelet Volume 9.1, Neutrophils (%) (Auto) 84.2, Lymphocytes (%) (Auto) 7.7, Monocytes (%) (Auto) 6.8, Eosinophils (%) (Auto) 0.7, Basophils (%) (Auto) 0.3, Neutrophils # (Auto) 5.94, Lymphocytes # (Auto) 0.54, Monocytes # (Auto) 0.48, Eosinophils # (Auto) 0.05, Basophils # (Auto) 0.02 10/15/17 05:26 Test 10/15/17 05:26 White Blood Count 7.05 K/uL (4.8-10.8) Red Blood Count 2.73 M/uL (4.7-6.1) Hemoglobin 7.5 g/dL (14.0-18.0) Hematocrit 24.9 % (42-52) Mean Corpuscular Volume 91.2 fL (80-100) Mean Corpuscular Hemoglobin 27.5 pg (25-34) Mean Corpuscular Hemoglobin Concent 30.1 g/dl (32-36) Platelet Count 179 K/uL (130-400) Mean Platelet Volume 9.1 fL (7.4-10.4) Neutrophils (%) (Auto) 84.2 % Lymphocytes (%) (Auto) 7.7 % Monocytes (%) (Auto) 6.8 % Eosinophils (%) (Auto) 0.7 % Basophils (%) (Auto) 0.3 % Neutrophils # (Auto) 5.94 K/uL (1.4-6.5) Lymphocytes # (Auto) 0.54 K/uL (1.2-3.4) Monocytes # (Auto) 0.48 K/uL (0.11-0.59) Eosinophils # (Auto) 0.05 K/uL (0-0.5) Basophils # (Auto) 0.02 K/uL (0-0.2) RDW Standard Deviation 57.2 fL (36.4-46.3) RDW Coefficient of Variation 17.3 % (11.5-14.5) Immature Granulocyte % (Auto) 0.3 % Immature Granulocyte # (Auto) 0.02 K/uL (0.00-0.02) Tear Drop Cells 1+ Ovalocytes 1+ Prothrombin Time 16.2 SECONDS (9.0-12.0) Prothromb Time International Ratio 1.6 (0.9-1.1) Anion Gap 4.0 mmol/L (3-11) Est Creatinine Clear Calc Drug Dose 72.7 ml/min Estimated GFR () 99.2 Estimated GFR (Non- 85.6 BUN/Creatinine Ratio 15.4 (10-20) Calcium Level 8.0 mg/dl (8.5-10.1) Total Bilirubin 0.7 mg/dl (0.2-1) Aspartate Amino Transf (AST/SGOT) 33 U/L (15-37) Alanine Aminotransferase (ALT/SGPT) 30 U/L (12-78) Alkaline Phosphatase 120 U/L (45-117) Total Protein 5.4 gm/dl (6.4-8.2) Albumin 2.5 gm/dl (3.4-5.0) Globulin 2.9 gm/dl (2.5-4.0) Albumin/Globulin Ratio 0.9 (0.9-2) Lab Results: Current Inpatient Medications Medications (Trade) Dose Ordered Sig/Kaitlynn Route Start Time Stop Time Status Last Admin Dose Admin Al Hydrox/Mg Hydrox/Simethicone (Maalox Max Susp) 15 ml Q4H PRN PO 10/12/17 15:00 11/11/17 14:59 10/13/17 13:38 15 ML Magnesium Hydroxide (Milk Of Magnesia Susp) 30 ml Q12H PRN PO 10/12/17 15:00 11/11/17 14:59 Ondansetron HCl (Zofran Inj) 4 mg Q6H PRN IV 10/12/17 15:00 11/11/17 14:59 10/13/17 13:38 4 MG Nitroglycerin (Nitrostat Tab) 0.4 mg UD PRN SL 10/12/17 15:00 11/11/17 14:59 Morphine Sulfate (MoRPHine SULFATE INJ) 2 mg Q30M PRN IV 10/12/17 15:00 10/26/17 14:59 10/14/17 09:42 2 MG Polyethylene (Miralax Powder Packet) 17 gm DAILY PRN PO 10/12/17 15:00 11/11/17 14:59 Acetaminophen (Tylenol Tab) 650 mg Q6 PRN PO 10/12/17 15:00 11/11/17 14:59 10/14/17 09:42 650 MG Amiodarone HCl (Cordarone Tab) 200 mg DAILY PO 10/13/17 09:00 11/12/17 08:59 10/15/17 07:47 200 MG Atorvastatin Calcium (Lipitor Tab) 80 mg DAILY PO 10/13/17 09:00 11/12/17 08:59 10/15/17 07:47 80 MG Cholecalciferol (Vitamin D Tab) 1,000 inter.unit QAM PO 10/13/17 09:00 11/12/17 08:59 10/15/17 07:47 1,000 INTER.UNIT Magnesium Oxide (Mag-Ox Tab) 400 mg QAM PO 10/13/17 09:00 11/12/17 08:59 10/15/17 07:48 400 MG Metoprolol Succinate (Toprol Xl Tab) 12.5 mg DAILY PO 10/13/17 09:00 11/12/17 08:59 10/13/17 08:12 12.5 MG Multivitamins (Multivitamin Tab) 1 tab QAM PO 10/13/17 09:00 11/12/17 08:59 10/15/17 07:47 1 TAB Sertraline HCl (Zoloft Tab) 75 mg QAM PO 10/13/17 09:00 11/12/17 08:59 10/15/17 07:47 75 MG Bimatoprost (Lumigan 0.01%) 1 drops HS OP 10/12/17 21:00 11/11/17 20:59 10/14/17 21:57 1 DROPS Ferrous Sulfate (Feosol Tab) 325 mg BIDM PO 10/12/17 16:45 11/11/17 17:59 10/15/17 16:58 325 MG Pantoprazole Sodium 40 mg/ Syringe 10 ml @ 5 mls/min Q12@0900,2100 IV 10/12/17 21:00 11/11/17 20:59 10/15/17 07:47 5 MLS/MIN Furosemide 40 mg/ Syringe 4 ml @ 4 mls/min BID IV 10/14/17 21:00 11/13/17 20:59 10/15/17 08:22 4 MLS/MIN
[2017-10-15] MEDS: BIMATOPROST 0.01% OP SOLN 2.5 ML BTL OP SCH (20:10)
[2017-10-15 23:52] VITALS: BP 95/53; PULSE 79; TEMP 36.6; O2SAT 97
[2017-10-15] MEDS: ACETAMINOPHEN 325 MG TAB PO PRN (23:55)
[2017-10-16 03:32] VITALS: BP 90/50; PULSE 98; TEMP 36.4; O2SAT 99
[2017-10-16] MEDS ORDERED: POTASSIUM CHLORIDE 20 MEQ TABCR PO STA (04:16)
[2017-10-16] MEDS: FERROUS SULFATE 325 MG TAB PO SCH ×2 (05:40→16:50)
[2017-10-16 06:32] LABS: BASO % 0.4 %; BASO ABS # 0.02 K/uL (0-0.2); EOS % 2.6 %; EOS ABS # 0.13 K/uL (0-0.5); HEMATOCRIT 23.3 % (42-52); HEMOGLOBIN 7.2 g/dL (14.0-18.0); IG# 0.02 K/uL (0.00-0.02); LYMPH % 9.3 %; LYMPH ABS # 0.46 K/uL (1.2-3.4); MEAN CELL VOLUME 90.3 fL (80-100); MEAN CORPUSCULAR HEMOGLOBIN 27.9 pg (25-34); MEAN CORPUSCULAR HGB CONC 30.9 g/dl (32-36); MEAN PLATELET VOLUME 8.8 fL (7.4-10.4); MONO % 7.7 %; MONO ABS # 0.38 K/uL (0.11-0.59); NEUT % 79.6 %; NEUT ABS # 3.91 K/uL (1.4-6.5); PLATELET COUNT 158 K/uL (130-400); RED CELL DISTRIBUTION WIDTH SD 55.4 fL (36.4-46.3); WHITE BLOOD COUNT 4.92 K/uL (4.8-10.8)
[2017-10-16 07:04] LABS: ALBUMIN 2.4 gm/dl (3.4-5.0); CALCIUM 7.8 mg/dl (8.5-10.1); CREATININE 0.73 mg/dl (0.60-1.40); POTASSIUM 3.4 mmol/L (3.5-5.1)
[2017-10-16 07:07] LABS: TOTAL PROTEIN 5.1 gm/dl (6.4-8.2)
[2017-10-16 08:00] VITALS: BP 115/56; PULSE 77; TEMP 36.4; O2SAT 96
[2017-10-16] MEDS: PANTOprazole INJ 40 MG in SYRINGE 0 ML IV SCH (08:12)
[2017-10-16] MEDS: MULTIVITAMIN TAB PO SCH (08:13)
[2017-10-16] MEDS: FUROSEMIDE INJ 40 MG in SYRINGE 0 ML IV SCH ×2 (08:13→21:08)
[2017-10-16] MEDS: CHOLECALCIFEROL 1000 INTER.UNIT TAB PO SCH (08:13)
[2017-10-16] MEDS: SERTRALINE HCL 50 MG TAB PO SCH (08:13)
[2017-10-16] MEDS: ATORVASTATIN 40 MG TAB PO SCH (08:13)
[2017-10-16] MEDS: MAGNESIUM OXIDE 400 MG TAB PO SCH (08:14)
[2017-10-16] MEDS: METOPROLOL SUCC 25MG EXT REL TAB PO SCH (08:14)
[2017-10-16] MEDS: AMIODARONE 200 MG TAB PO SCH (09:15)
--- NOTE | 2017-10-16 10:43 | Family Medicine Progress Note ---
Progress Note Date of Service Oct 16, 2017. Subjective No new complaints. Breathing is improved. Denies chest pain or abdominal pain , dark or bloody stools. Eating/voiding well. Reports some lightheadedness upon standing that is not new for him, has been happening for years, persistent. ROS See HPI for pertinent positives and negatives. Medications Current Inpatient Medications Medications (Trade) Dose Ordered Sig/Kaitlynn Route Start Time Stop Time Status Last Admin Dose Admin Al Hydrox/Mg Hydrox/Simethicone (Maalox Max Susp) 15 ml Q4H PRN PO 10/12/17 15:00 11/11/17 14:59 10/13/17 13:38 15 ML Magnesium Hydroxide (Milk Of Magnesia Susp) 30 ml Q12H PRN PO 10/12/17 15:00 11/11/17 14:59 Ondansetron HCl (Zofran Inj) 4 mg Q6H PRN IV 10/12/17 15:00 11/11/17 14:59 10/13/17 13:38 4 MG Nitroglycerin (Nitrostat Tab) 0.4 mg UD PRN SL 10/12/17 15:00 11/11/17 14:59 Morphine Sulfate (MoRPHine SULFATE INJ) 2 mg Q30M PRN IV 10/12/17 15:00 10/26/17 14:59 10/14/17 09:42 2 MG Polyethylene (Miralax Powder Packet) 17 gm DAILY PRN PO 10/12/17 15:00 11/11/17 14:59 Acetaminophen (Tylenol Tab) 650 mg Q6 PRN PO 10/12/17 15:00 11/11/17 14:59 10/15/17 23:55 650 MG Amiodarone HCl (Cordarone Tab) 200 mg DAILY PO 10/13/17 09:00 11/12/17 08:59 10/16/17 09:15 200 MG Atorvastatin Calcium (Lipitor Tab) 80 mg DAILY PO 10/13/17 09:00 11/12/17 08:59 10/16/17 08:13 80 MG Cholecalciferol (Vitamin D Tab) 1,000 inter.unit QAM PO 10/13/17 09:00 11/12/17 08:59 10/16/17 08:13 1,000 INTER.UNIT Magnesium Oxide (Mag-Ox Tab) 400 mg QAM PO 10/13/17 09:00 11/12/17 08:59 10/16/17 08:14 400 MG Metoprolol Succinate (Toprol Xl Tab) 12.5 mg DAILY PO 10/13/17 09:00 11/12/17 08:59 10/16/17 08:14 12.5 MG Multivitamins (Multivitamin Tab) 1 tab QAM PO 10/13/17 09:00 11/12/17 08:59 10/16/17 08:13 1 TAB Sertraline HCl (Zoloft Tab) 75 mg QAM PO 10/13/17 09:00 11/12/17 08:59 10/16/17 08:13 75 MG Bimatoprost (Lumigan 0.01%) 1 drops HS OP 10/12/17 21:00 11/11/17 20:59 10/15/17 20:10 1 DROPS Ferrous Sulfate (Feosol Tab) 325 mg BIDM PO 10/12/17 16:45 11/11/17 17:59 10/16/17 05:40 325 MG Pantoprazole Sodium 40 mg/ Syringe 10 ml @ 5 mls/min Q12@0900,2100 IV 10/12/17 21:00 11/11/17 20:59 10/16/17 08:12 5 MLS/MIN Furosemide 40 mg/ Syringe 4 ml @ 4 mls/min BID IV 10/14/17 21:00 11/13/17 20:59 10/16/17 08:13 4 MLS/MIN Objective Vital Signs Date Time Temp Pulse Resp B/P (MAP) Pulse Ox O2 Delivery O2 Flow Rate FiO2 10/16/17 08:00 36.4 77 20 115/56 (75) 96 Nasal Cannula 4.0 10/16/17 04:00 Nasal Cannula 4.0 10/16/17 03:32 36.4 98 16 90/50 (63) 99 Nasal Cannula 3.5 10/16/17 00:01 Nasal Cannula 4.0 10/15/17 23:52 36.6 79 18 95/53 (67) 97 Nasal Cannula 4.0 10/15/17 20:00 Nasal Cannula 4.0 10/15/17 19:53 36.6 79 18 106/55 (72) 88 4.0 10/15/17 16:02 Nasal Cannula 4.0 10/15/17 15:19 36.6 81 22 90/53 (65) 90 Nasal Cannula 4.0 10/15/17 12:02 Nasal Cannula 4.0 10/15/17 11:38 36.8 79 20 97/46 (63) 99 Physical Exam Notes: GENERAL: Awake, alert, in no distress. Nasal cannula in place 4L. EYES: Normal conjunctiva. Sclera non-icteric. RESPIRATORY: Mildly diminished breath sounds at bases bilaterally. CARDIAC: Regular rate, normal rhythm. Extremities warm and well perfused. Pulses equal. +systolic murmur heard best over RT upper sternal border ABDOMEN: Soft, non-distended. No tenderness to palpation. No rebound or guarding. No masses. NEURO: No motor deficits noted. + Dysphasia SKIN: No rash or jaundice noted. Assessment and Plan 71M admitted 18Mar for h/o SOB found to have profound anemia and GIB while on Eliquis. Transfused with 4UPRBCs and 2UFFP in ED. 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 Acute blood loss anemia - GIB requiring tranfusion with 4 units PRBC and 2 units FFP in total. Per GI: Plan is to scope in outpatient setting. Continue PPI BID. - pt has h/o chronic iron deficient anemia followed by Heme/onc, with iron transfusion treatment in recent past. However during prior hospitalization was started on anticoagulation for paroxysmal AFIB. No ale active bleeding, and is responding well to transfusion. Eliquis and ASA have been held, cardio following and agree, however will need to weigh pros/cons and risk/benefits of further anticoagulation in the future. Hypoxemia - likely 2/2 fluid overload due to transfusions - Necessary transfusions when pt was near hemorrhagic shock and hemoglobin 4.3. Have been diuresing, continue Lasix 40BID. Replete K 40meq BID added. Elevated troponin - probable NSTEMI, POA - Monitored until peak, as per cardiology. Thought to be due to cardiac injury in setting of profound anemia and hypotension on arrival. Low suspicion for acute coronary syndrome. Echo here shows no significant change to LV function from prior echo in Jul 2017. Hypotension - acute on chronic per pt's history, in setting of profound anemia on arrival. Has improved some, and will check orthostatics, however pt is mostly asymptomatic. Follow. - Benazapril 10mg daily HELD - Toprol XL 12.5mg daily continued Paroxysmal AFIB - anticoagulation contraindicated at this time HELD - Amiodarone continued. Toprol XL contd. Currently sinus 60s-70s JAVIER on CKDII stable. Follow BMP. Depression: Continue Zoloft DVT prophylaxis: Chemical anticoagulation contraindicated due to anemia, SCDs Code status: LEVEL I, FULL Dispo: Transfer to Med/surg. From home, lives alone- PT/OT and CM consulted - Rehab - [facility]iper referral placed. Awaiting placement. Resident Physician Supervision Note: I interviewed and examined the patient. Discussed with Dr. García and agree with findings and plan as documented in the note. Any exceptions or clarifications are listed here: None Documented By: Aramis Cheatham feeling better each day was out of bed and ate well, breathing is getting better vitals noted nad breathing unlabored less O2 than before yet again, lungs faint rales mid L but was laying flat just prior to exam; no pallor or icterus acute/subacute hemorrhagic anemia w hypotension (early hemorrhagic shock) now improving in the setting of eliquis for afib -totally stable -endoscopic w/u as outpt in near but not emergent future as long as still no evidence of rebleed -required 4 units thus far; ideally w heart disease would give another, for now w CHF and lack of anemia sx, will hold on further transfusion acute on chronic systolic CHF -worse EF due to severe anemia/severe demand ischemia (?hopefully will recover with time) -diureses ongoing (improving but appears to still have some fluid overload - showing day to day improvement though) -fluid related to blood products obviously was necessary elevated troponin -no sx or EKG changes c/w UT. appearing to be severe demand ischemia due to profound anemia, med management, no sx, f/u echo after recovery AKF -related to anemia -improved s/p transfusion -following w diuresis - still normal creatinine though (anticipate sl rise once he's finally euvolemic but has yet to occur) possible severe protein calorie malnutrition -nutrition assistance appreciated close outpt f/u will be needed as well afib -stroke risk obviously remains; this was a life-altering level of bleed possibly making it preclude future anticoagulation; however, had he presented sooner in the course it wouldve simply been anemia requiring transfusion - will need ongoing vigilance and risks/benefit balance ongoing weighing for +/- eventual resumption of anticoagulation Continued [facility] stay due to: multiple IV medications needed Discharge planning: correction facility Resident Tracking Resident Involvement: Resident Care Provided Care Provided: Adult Hospital Medicine
[2017-10-16 11:47] VITALS: BP 87/46; PULSE 69; TEMP 36.5; O2SAT 96
--- NOTE | 2017-10-16 14:33 | Gastroenterology Progress Note ---
Progress Note Date of Service: Oct 16, 2017 Subjective Pt evaluation today including: conversation w/ patient, physical exam, chart review, lab review, review of studies, review of inpatient medication list CC f/u GI bleeding HPI Per nursing no stools. Per patient he denies abd pain. Is tolerating diet. SOB better. Review of Systems Respiratory: + shortness of breath Cardiac: No chest pain Medications Current Inpatient Medications Medications (Trade) Dose Ordered Sig/Kaitlynn Route Start Time Stop Time Status Last Admin Dose Admin Al Hydrox/Mg Hydrox/Simethicone (Maalox Max Susp) 15 ml Q4H PRN PO 10/12/17 15:00 11/11/17 14:59 10/13/17 13:38 15 ML Magnesium Hydroxide (Milk Of Magnesia Susp) 30 ml Q12H PRN PO 10/12/17 15:00 11/11/17 14:59 Ondansetron HCl (Zofran Inj) 4 mg Q6H PRN IV 10/12/17 15:00 11/11/17 14:59 10/13/17 13:38 4 MG Nitroglycerin (Nitrostat Tab) 0.4 mg UD PRN SL 10/12/17 15:00 11/11/17 14:59 Morphine Sulfate (MoRPHine SULFATE INJ) 2 mg Q30M PRN IV 10/12/17 15:00 10/26/17 14:59 10/14/17 09:42 2 MG Polyethylene (Miralax Powder Packet) 17 gm DAILY PRN PO 10/12/17 15:00 11/11/17 14:59 Acetaminophen (Tylenol Tab) 650 mg Q6 PRN PO 10/12/17 15:00 11/11/17 14:59 10/15/17 23:55 650 MG Amiodarone HCl (Cordarone Tab) 200 mg DAILY PO 10/13/17 09:00 11/12/17 08:59 10/16/17 09:15 200 MG Atorvastatin Calcium (Lipitor Tab) 80 mg DAILY PO 10/13/17 09:00 11/12/17 08:59 10/16/17 08:13 80 MG Cholecalciferol (Vitamin D Tab) 1,000 inter.unit QAM PO 10/13/17 09:00 11/12/17 08:59 10/16/17 08:13 1,000 INTER.UNIT Magnesium Oxide (Mag-Ox Tab) 400 mg QAM PO 10/13/17 09:00 11/12/17 08:59 10/16/17 08:14 400 MG Metoprolol Succinate (Toprol Xl Tab) 12.5 mg DAILY PO 10/13/17 09:00 11/12/17 08:59 10/16/17 08:14 12.5 MG Multivitamins (Multivitamin Tab) 1 tab QAM PO 10/13/17 09:00 11/12/17 08:59 10/16/17 08:13 1 TAB Sertraline HCl (Zoloft Tab) 75 mg QAM PO 10/13/17 09:00 11/12/17 08:59 10/16/17 08:13 75 MG Bimatoprost (Lumigan 0.01%) 1 drops HS OP 10/12/17 21:00 11/11/17 20:59 10/15/17 20:10 1 DROPS Ferrous Sulfate (Feosol Tab) 325 mg BIDM PO 10/12/17 16:45 11/11/17 17:59 10/16/17 05:40 325 MG Pantoprazole Sodium 40 mg/ Syringe 10 ml @ 5 mls/min Q12@0900,2100 IV 10/12/17 21:00 11/11/17 20:59 10/16/17 08:12 5 MLS/MIN Furosemide 40 mg/ Syringe 4 ml @ 4 mls/min Q24H IV 10/17/17 09:00 11/13/17 20:59 Potassium Chloride (Klor-Con Tab) 20 meq BID PO 10/16/17 21:00 11/15/17 20:59 Objective Vital Signs Date Time Temp Pulse Resp B/P (MAP) Pulse Ox O2 Delivery O2 Flow Rate FiO2 10/16/17 12:00 Nasal Cannula 4.0 Oxymask 10/16/17 11:47 36.5 69 20 87/46 (60) 96 Nasal Cannula 4.0 10/16/17 08:00 36.4 77 20 115/56 (75) 96 Nasal Cannula 4.0 10/16/17 08:00 Nasal Cannula 4.0 Oxymask 10/16/17 04:00 Nasal Cannula 4.0 10/16/17 03:32 36.4 98 16 90/50 (63) 99 Nasal Cannula 3.5 10/16/17 00:01 Nasal Cannula 4.0 10/15/17 23:52 36.6 79 18 95/53 (67) 97 Nasal Cannula 4.0 10/15/17 20:00 Nasal Cannula 4.0 10/15/17 19:53 36.6 79 18 106/55 (72) 88 4.0 10/15/17 16:02 Nasal Cannula 4.0 10/15/17 15:19 36.6 81 22 90/53 (65) 90 Nasal Cannula 4.0 Physical Exam General Appearance: WD/WN, no apparent distress Respiratory/Chest: lungs clear, normal breath sounds Cardiovascular: no murmur Abdomen: normal bowel sounds, non tender, soft, no organomegaly, no pulsatile mass Neurologic/Psych: alert, normal mood/affect, oriented x 3 Skin: normal color Laboratory Results Last 24 Hours Test 10/16/17 06:10 White Blood Count 4.92 K/uL Red Blood Count 2.58 M/uL Hemoglobin 7.2 g/dL Hematocrit 23.3 % Mean Corpuscular Volume 90.3 fL Mean Corpuscular Hemoglobin 27.9 pg Mean Corpuscular Hemoglobin Concent 30.9 g/dl Platelet Count 158 K/uL Mean Platelet Volume 8.8 fL Neutrophils (%) (Auto) 79.6 % Lymphocytes (%) (Auto) 9.3 % Monocytes (%) (Auto) 7.7 % Eosinophils (%) (Auto) 2.6 % Basophils (%) (Auto) 0.4 % Neutrophils # (Auto) 3.91 K/uL Lymphocytes # (Auto) 0.46 K/uL Monocytes # (Auto) 0.38 K/uL Eosinophils # (Auto) 0.13 K/uL Basophils # (Auto) 0.02 K/uL RDW Standard Deviation 55.4 fL RDW Coefficient of Variation 17.0 % Immature Granulocyte % (Auto) 0.4 % Immature Granulocyte # (Auto) 0.02 K/uL Basophilic Stippling 1+ Anisocytosis PRESENT Sodium Level 132 mmol/L Potassium Level 3.4 mmol/L Chloride Level 94 mmol/L Carbon Dioxide Level 34 mmol/L Anion Gap 4.0 mmol/L Blood Urea Nitrogen 13 mg/dl Creatinine 0.73 mg/dl Est Creatinine Clear Calc Drug Dose 87.3 ml/min Estimated GFR () 106.7 Estimated GFR (Non- 92.0 BUN/Creatinine Ratio 18.0 Random Glucose 105 mg/dl Calcium Level 7.8 mg/dl Total Bilirubin 0.7 mg/dl Aspartate Amino Transf (AST/SGOT) 32 U/L Alanine Aminotransferase (ALT/SGPT) 28 U/L Alkaline Phosphatase 122 U/L Total Protein 5.1 gm/dl Albumin 2.4 gm/dl Globulin 2.7 gm/dl Albumin/Globulin Ratio 0.9 Assessment and Plan Anemia stable melena none at present elevated LFTS --improved, follow shortness of breath elevated troponin Continue Protonix bid. No stools and Hgb stable so no active bleeding. CHF lingering. Discussed with DR Cheatham--will sign off and pland SB enteroscopy as outpt. Switch to po protonix bid
[2017-10-16 16:09] VITALS: BP_SYST 85; BP_SYST 92; BP_SYST 96; BP_DIAS 47; BP_DIAS 49; BP_DIAS 50; PULSE 66; PULSE 72; TEMP 36.8; O2SAT 95
[2017-10-16 18:05] VITALS: BP 95/58; PULSE 72; TEMP 36.6; O2SAT 97
[2017-10-16] MEDS ORDERED: POTASSIUM CHLORIDE 20 MEQ TABCR PO SCH (21:00)
[2017-10-16] MEDS: BIMATOPROST 0.01% OP SOLN 2.5 ML BTL OP SCH (21:08)
[2017-10-16] MEDS: POTASSIUM CHLORIDE 20 MEQ TABCR PO SCH (21:08)
[2017-10-16] MEDS: PANTOprazole SOD 40 MG TAB PO SCH (21:30)
[2017-10-17] VITALS: BP 113/58; PULSE 75; TEMP 36.6; O2SAT 92
[2017-10-17 07:30] VITALS: BP_SYST 92; BP_SYST 95; BP_SYST 96; BP_DIAS 41; BP_DIAS 51; BP_DIAS 54; PULSE 71; PULSE 84; PULSE 85; TEMP 36.8; O2SAT 95
[2017-10-17] MEDS: MAGNESIUM OXIDE 400 MG TAB PO SCH (07:48)
[2017-10-17] MEDS: ATORVASTATIN 40 MG TAB PO SCH (07:48)
[2017-10-17] MEDS: MULTIVITAMIN TAB PO SCH (07:48)
[2017-10-17] MEDS: FERROUS SULFATE 325 MG TAB PO SCH (07:48)
[2017-10-17] MEDS: AMIODARONE 200 MG TAB PO SCH (07:48)
[2017-10-17] MEDS: METOPROLOL SUCC 25MG EXT REL TAB PO SCH (07:49)
[2017-10-17] MEDS: CHOLECALCIFEROL 1000 INTER.UNIT TAB PO SCH (07:49)
[2017-10-17] MEDS: PANTOprazole SOD 40 MG TAB PO SCH (07:49)
[2017-10-17] MEDS: SERTRALINE HCL 50 MG TAB PO SCH (07:49)
[2017-10-17 08:09] LABS: BASO % 0.2 %; BASO ABS # 0.01 K/uL (0-0.2); EOS % 3.4 %; EOS ABS # 0.19 K/uL (0-0.5); HEMATOCRIT 24.8 % (42-52); HEMOGLOBIN 7.5 g/dL (14.0-18.0); LYMPH % 9.4 %; LYMPH ABS # 0.52 K/uL (1.2-3.4); MEAN CELL VOLUME 90.2 fL (80-100); MEAN CORPUSCULAR HEMOGLOBIN 27.3 pg (25-34); MEAN CORPUSCULAR HGB CONC 30.2 g/dl (32-36); MEAN PLATELET VOLUME 9.6 fL (7.4-10.4); MONO % 8.3 %; MONO ABS # 0.46 K/uL (0.11-0.59); NEUT % 78.7 %; NEUT ABS # 4.37 K/uL (1.4-6.5); PLATELET COUNT 197 K/uL (130-400); RED CELL DISTRIBUTION WIDTH CV 16.8 % (11.5-14.5); RED CELL DISTRIBUTION WIDTH SD 54.6 fL (36.4-46.3); WHITE BLOOD COUNT 5.55 K/uL (4.8-10.8)
--- NOTE | 2017-10-17 08:14 | Cardiology Follow-Up ---
Subjective Subjective Date of Service: Oct 17, 2017. Pt evaluation today including: conversation w/ patient, physical exam, chart review, lab review, review of studies Additional Details: Mild cough today. Denies significant shortness of breath/chest pain. Continue to diurese Problem List Medical Problems: (1) Acute GI bleeding Status: Acute (2) Alkaline phosphatase elevation Status: Acute (3) Anemia Status: Acute (4) Anticoagulated Status: Acute (5) Chest pain Status: Acute (6) Epistaxis, recurrent Status: Acute (7) Gastritis Status: Acute (8) Hypotension Status: Acute (9) On continuous oral anticoagulation Status: Acute (10) Pleural effusion, bilateral Status: Acute (11) Symptomatic anemia Status: Acute Review of Systems Constitutional: + fatigue Respiratory: + cough Cardiac: No chest pain Abdomen: No pain Heme: + abnormal bleeding/bruising Skin: No rash Objective Vital Signs Last Vital Signs Documentation Date Time Temp Pulse Resp B/P (MAP) Pulse Ox O2 Delivery O2 Flow Rate FiO2 10/17/17 07:30 36.8 71 20 95/54 (68) 95 Nasal Cannula 4.0 84 92/51 (65) 85 96/41 (59) Physical Exam: General Appearance: no apparent distress ENT: hearing grossly normal Respiratory/Chest: normal breath sounds, + decreased breath sounds (minimal the bases), + rales (improved) Cardiovascular: regular rate, rhythm, no edema, + JVD, + systolic murmur (2/6 NAYANA) Abdomen: non tender, soft Extremities: normal inspection, no pedal edema, no calf tenderness Neurologic/Psychiatric: alert, normal mood/affect, oriented x 3 Skin: warm/dry, no rash Assessment and Plan 1. Acute blood loss anemia-- H/H stable 2. Elevated troponin 3. Paroxysmal atrial fibrillation previously on anticoagulation 4. Acute on chronic systolic heart failure-- improving congestion 5. Multivessel coronary artery disease/Ischemic cardiomyopathy 6. Moderate aortic stenosis, [id number] aortic regurgitation, mild mitral regurgitation 7. Pleural effusion status post decortication 8. Pulmonary hypertension Diuresing well on BID IV diuretics -- congestion improving on exam, still requiring O2, renal function stable No active bleeding. Endoscopy planned as an outpatient -- Agree with IV lasix today --- appears to be approaching euvolemia, possible transition to PO diuretics tomorrow. -- continue to hold prior Eliquis and aspirin -- continue amiodarone; tolerating low dose beta-salbador Continued [facility] stay due to: multiple IV medications needed Discharge planning: correction facility Medications: Current Inpatient Medications Medications (Trade) Dose Ordered Sig/Kaitlynn Route Start Time Stop Time Status Last Admin Dose Admin Al Hydrox/Mg Hydrox/Simethicone (Maalox Max Susp) 15 ml Q4H PRN PO 10/12/17 15:00 11/11/17 14:59 10/13/17 13:38 15 ML Magnesium Hydroxide (Milk Of Magnesia Susp) 30 ml Q12H PRN PO 10/12/17 15:00 11/11/17 14:59 Ondansetron HCl (Zofran Inj) 4 mg Q6H PRN IV 10/12/17 15:00 11/11/17 14:59 10/13/17 13:38 4 MG Nitroglycerin (Nitrostat Tab) 0.4 mg UD PRN SL 10/12/17 15:00 11/11/17 14:59 Morphine Sulfate (MoRPHine SULFATE INJ) 2 mg Q30M PRN IV 10/12/17 15:00 10/26/17 14:59 10/14/17 09:42 2 MG Polyethylene (Miralax Powder Packet) 17 gm DAILY PRN PO 10/12/17 15:00 11/11/17 14:59 Acetaminophen (Tylenol Tab) 650 mg Q6 PRN PO 10/12/17 15:00 11/11/17 14:59 10/15/17 23:55 650 MG Amiodarone HCl (Cordarone Tab) 200 mg DAILY PO 10/13/17 09:00 11/12/17 08:59 10/17/17 07:48 200 MG Atorvastatin Calcium (Lipitor Tab) 80 mg DAILY PO 10/13/17 09:00 11/12/17 08:59 10/17/17 07:48 80 MG Cholecalciferol (Vitamin D Tab) 1,000 inter.unit QAM PO 10/13/17 09:00 11/12/17 08:59 10/17/17 07:49 1,000 INTER.UNIT Magnesium Oxide (Mag-Ox Tab) 400 mg QAM PO 10/13/17 09:00 11/12/17 08:59 10/17/17 07:48 400 MG Metoprolol Succinate (Toprol Xl Tab) 12.5 mg DAILY PO 10/13/17 09:00 11/12/17 08:59 10/16/17 08:14 12.5 MG Multivitamins (Multivitamin Tab) 1 tab QAM PO 10/13/17 09:00 11/12/17 08:59 10/17/17 07:48 1 TAB Sertraline HCl (Zoloft Tab) 75 mg QAM PO 10/13/17 09:00 11/12/17 08:59 10/17/17 07:49 75 MG Bimatoprost (Lumigan 0.01%) 1 drops HS OP 10/12/17 21:00 11/11/17 20:59 10/16/17 21:08 1 DROPS Ferrous Sulfate (Feosol Tab) 325 mg BIDM PO 10/12/17 16:45 11/11/17 17:59 10/17/17 07:48 325 MG Pantoprazole Sodium (Protonix Tab) 40 mg BID PO 10/16/17 20:00 11/15/17 20:59 10/17/17 07:49 40 MG Furosemide 40 mg/ Syringe 4 ml @ 4 mls/min BID IV 10/16/17 20:00 11/13/17 20:59 10/16/17 21:08 4 MLS/MIN Potassium Chloride (Klor-Con Tab) 40 meq BID PO 10/16/17 20:00 11/15/17 20:59 10/16/17 21:08 40 MEQ Lab Results: 10/17/17 07:36 Red Blood Count 2.75, Mean Corpuscular Volume 90.2, Mean Corpuscular Hemoglobin 27.3, Mean Corpuscular Hemoglobin Concent 30.2, Mean Platelet Volume 9.6, Neutrophils (%) (Auto) 78.7, Lymphocytes (%) (Auto) 9.4, Monocytes (%) (Auto) 8.3, Eosinophils (%) (Auto) 3.4, Basophils (%) (Auto) 0.2, Neutrophils # (Auto) 4.37, Lymphocytes # (Auto) 0.52, Monocytes # (Auto) 0.46, Eosinophils # (Auto) 0.19, Basophils # (Auto) 0.01 Test 10/17/17 07:36 White Blood Count 5.55 K/uL (4.8-10.8) Red Blood Count 2.75 M/uL (4.7-6.1) Hemoglobin 7.5 g/dL (14.0-18.0) Hematocrit 24.8 % (42-52) Mean Corpuscular Volume 90.2 fL (80-100) Mean Corpuscular Hemoglobin 27.3 pg (25-34) Mean Corpuscular Hemoglobin Concent 30.2 g/dl (32-36) Platelet Count 197 K/uL (130-400) Mean Platelet Volume 9.6 fL (7.4-10.4) Neutrophils (%) (Auto) 78.7 % Lymphocytes (%) (Auto) 9.4 % Monocytes (%) (Auto) 8.3 % Eosinophils (%) (Auto) 3.4 % Basophils (%) (Auto) 0.2 % Neutrophils # (Auto) 4.37 K/uL (1.4-6.5) Lymphocytes # (Auto) 0.52 K/uL (1.2-3.4) Monocytes # (Auto) 0.46 K/uL (0.11-0.59) Eosinophils # (Auto) 0.19 K/uL (0-0.5) Basophils # (Auto) 0.01 K/uL (0-0.2) RDW Standard Deviation 54.6 fL (36.4-46.3) RDW Coefficient of Variation 16.8 % (11.5-14.5) Immature Granulocyte % (Auto) 0.0 % Immature Granulocyte # (Auto) 0.00 K/uL (0.00-0.02)
[2017-10-17] MEDS: FUROSEMIDE INJ 40 MG in SYRINGE 0 ML IV SCH ×2 (08:36→11:58)
[2017-10-17] MEDS: POTASSIUM CHLORIDE 20 MEQ TABCR PO SCH (08:37)
[2017-10-17 08:38] VITALS: BP 100/57
[2017-10-17 08:44] LABS: CREATININE 0.73 mg/dl (0.60-1.40)
[2017-10-17 08:45] LABS: CALCIUM 8.1 mg/dl (8.5-10.1); POTASSIUM 4.3 mmol/L (3.5-5.1)
[2017-10-17] MEDS ORDERED: FUROSEMIDE INJ 40 MG in SYRINGE 0 ML IV SCH (09:00)
[2017-10-17 10:48] VITALS: BP 103/62; PULSE 71
[2017-10-17 11:59] VITALS: BP 103/62; PULSE 71; TEMP 36.8; O2SAT 95
[2017-10-17] MEDS ORDERED: LSX40 PO (13:41)
[2017-10-17] MEDS ORDERED: MCRK20 PO (13:41)
--- NOTE | 2017-10-17 13:46 | Discharge Instructions ---
Discharge Instructions Date of Service Oct 17, 2017. Admission Reason for Admission: Anemia Discharge Discharge Diagnosis / Problem: anemia Discharge Goals Goal(s): Diagnostic testing, Therapeutic intervention Activity Recommendations Activity Limitations: resume your previous activity . Instructions / Follow-Up Instructions / Follow-Up please see transfer institution nonacute instructions for full details. this sheet being generated to satisfy CHF quality measures, i apologize if there is any confusion Call your Primary Care doctor if any of the following symptoms or problems start or get worse: * Shortness of breath or difficulty breathing * Wake up at night short of breath * Chest pain * Cough * Swelling of your hands, feet, or legs * More fatigued or tired with your normal activity * Palpitations - sudden fast heart beats WEIGHT * Weigh yourself every morning after using the bathroom. * Use the same scale. * Wear the same amount of clothing. * Write your weight down on a chart. * Call your Primary Care doctor if you gain more than 2-3 pounds in 1-2 days. MEDICATIONS * Use this discharge instruction sheet for medication instructions. * Take your medications at the time your doctor ordered. * Do not skip a dose of your medicines. * If you miss a dose of medicine, take it as soon as possible, but DO NOT DOUBLE A DOSE. * Read your medicine information when you get home. * Know all of the side effects of your medicine. If in doubt, ask your pharmacist * Call your Primary Care doctor's office if you have any side effects. * Be sure all of your doctors know what medicine and herbs you take (including cold, flu, and herbal medicine). Take the following with you to your follow-up doctor appointments: * Weight Chart * Medication List * List of questions Do not drink excessive alcohol, beer or wine. Current Hospital Diet Patient's current hospital diet: AHA Diet (Heart Healthy), Low Sodium Diet (2gm Na) Discharge Diet Recommended Diet: AHA Diet (Heart Healthy), Low Sodium Diet (2gm Na) Pending Studies Studies pending at discharge: no Medical Emergencies . Who to Call and When: Call 911 or go to the Emergency Room if: * If at any time you feel your situation is an emergency * You have tightness or pain in your chest that does not go away with rest or Nitroglycerin * You are very short of breath even with rest . Non-Emergent Contact Non-Emergency issues call your: Primary Care Provider . . "Provider Documentation" section prepared by Aramis Cheatham. .
--- NOTE | 2017-10-17 14:01 | Discharge Instructions ---
Discharge Instructions Date of Service Oct 17, 2017. Admission Reason for Admission: Anemia Discharge Discharge Diagnosis / Problem: severe anemia Discharge Goals Goal(s): Diagnostic testing, Therapeutic intervention Activity Recommendations Activity Level: Assistance Required Therapies: Physical Therapy, Occupational Therapy . Additional Information Patient informed of condition: Yes Advance Directives: No DNR: No Level of Care: Skilled (rehab emphasis) Communicable Disease: No Prognosis: Improving Instructions / Follow-Up Instructions / Follow-Up a) anemia -due to GI blood losses - almost certainly from subacute oozing related to aspirin and eliquis (see below in regards to possible ongoing utility of these meds) -initial Hgb 4.3 - transfused to mid-7's. asymptomatic from anemia standpoint. cardiology raised consideration of transfusing to goal of 8, but he then had acute systolic CHF related to the fluid volume from the transfusions (4 units blood, 2 units FFP) --> and since he had active CHF but no anemia s/s - felt it most prudent to hold on further transfusions at this time. this issue is raised simply because as he rehabs further, if he is showing limitations that seem anemia related, it may then be reasonable to transfuse further as an outpatient -follow CBC on 10/19, then periodically and as clinically warranted -due to acute CHF, and no active bleeding once anticoagulation and antiplatelets stopped endoscopic workup was deferred to outpt. (he's had extensive outpt scopes in the past - most recently some duodenitis earlier in 2018) -- next plans are EGD and small bowel enteroscopy w [facility] in 1-2 weeks ( depending on his clinical progress) b) acute on chronic systolic CHF -chronic cardiomyopathy / CAD -- acute was due to profound anemia -EF currently 35% (most recently prior was 45%) -med management as ordered; currently 40mg PO lasix (usual home dose is 20mg), and O2 (being weaned, normally lives on room air) -over time, goal would be to wean to room air; since his EF is lower than it previously was he may need higher dose of lasix ongoing; although it may also be feasible to reduce to his prior 20mg - will depend on clinical progress -follow BMP 10/19 then as clinically warranted, ongoing clinical f/u for CHF, ongoing wean O2 as possible c) afib, CAD -at this point aspirin and eliquis will be on hold; after scopes if no ominous/ precluding lesions found, then it may be reasonable to resume these meds since he also has risks for CAD/stroke from afib. if he is able to resume asa, eliquis, or both, would have routine CBC checked for the indefinite future to catch anemia if it starts to occur, rather than once he is profoundly low and symptomatic. fortunately the only manifestation of his CAD at this time was an asymptomatic, essentially watershed SD, which likely was the cause of the newly reduced EF - but entirely related to having a Hgb of 4.3 Current Hospital Diet Patient's current hospital diet: AHA Diet (Heart Healthy), Low Sodium Diet (2gm Na) Discharge Diet Recommended Diet: AHA Diet (Heart Healthy), Low Sodium Diet (2gm Na) Pending Studies Studies pending at discharge: no Medical Emergencies . Who to Call and When: Medical Emergencies: If at any time you feel your situation is an emergency, please call 911 immediately. . Non-Emergent Contact Non-Emergency issues call your: Primary Care Provider . . "Provider Documentation" section prepared by Aramis Cheatham. . Core Measure Problem Core Measures: AMI AMI Core Measures Reason no ASA as I/P: Contraindicated Reason no ASA at D/C: Contraindicated Reason no statin as I/P: Treatment provided - N/A Reason no statin at D/C: Treatment provided - N/A
[2017-10-17 15:03] VITALS: BP 103/57; PULSE 71; TEMP 36.5; O2SAT 94
--- NOTE | 2017-10-17 19:35 | Discharge Summary ---
Discharge Summary Date of Service Oct 17, 2017. Discharge Summary Admission Date: Oct 12, 2017 at 15:08 Discharge Date: Oct 17, 2017 Discharge Disposition: custodial facility Principal Diagnosis: Gastrointestinal bleed, Anemia Procedures: Echocardiography * -- Conclusions -- * 1. Mildly dilated LV. Borderline concentric LVH. * 2. Moderate LV dysfunction. LVEF 35-40%. Inferolateral akinesis. Lateral hypokinesis. * 3. Normal RV size and function. * 4. Moderate aortic stenosis. Mild to moderate aortic regurgitation. * 5. Mild to moderate mitral regurgitation. * 6. Grade II diastolic dysfunction. * 6. Pulmonary hypertension. Est PASP 45-50 mmHg. * 7. Compared with prior study on 09/05/2016: LV now mildly dilated and LV dysfunction now moderate. Aortic stenosis/regurgitation has progressed. Consultations: Cardiology Assessment and Plan 1. Acute blood loss anemia-- H/H stable 2. Elevated troponin 3. Paroxysmal atrial fibrillation previously on anticoagulation 4. Acute on chronic systolic heart failure-- improving congestion 5. Multivessel coronary artery disease/Ischemic cardiomyopathy 6. Moderate aortic stenosis, [id number] aortic regurgitation, mild mitral regurgitation 7. Pleural effusion status post decortication 8. Pulmonary hypertension Diuresing well on BID IV diuretics -- congestion improving on exam, still requiring O2, renal function stable No active bleeding. Endoscopy planned as an outpatient -- Agree with IV lasix today --- appears to be approaching euvolemia, possible transition to PO diuretics tomorrow. -- continue to hold prior Eliquis and aspirin -- continue amiodarone; tolerating low dose beta-salbador Gastroenterology Assessment and Plan Anemia stable melena none at present elevated LFTS --improved, follow shortness of breath elevated troponin Continue Protonix bid. No stools and Hgb stable so no active bleeding. CHF lingering. Discussed with DR Cheatham--will sign off and pland SB enteroscopy as outpt. Switch to po protonix bid Medication Reconciliation New Medications: Furosemide (Furosemide) 40 Mg Tab 1 TAB PO DAILY, #30 TAB Potassium Chloride (Klor-Con M20) 20 Meq Tabcr 1 TAB PO DAILY, #30 TABS Continued Medications: Acetaminophen (Tylenol) 325 Mg Tab 650 MG PO Q6 PRN for Pain or Fever, TAB Amiodarone Hcl (Cordarone) 200 Mg Tab 200 MG PO DAILY, TAB Atorvastatin (Lipitor) 80 Mg Tab 80 MG PO DAILY, TAB Benazepril (Lotensin) 10 Mg Tab 10 MG PO DAILY, TAB Bimatoprost (Lumigan) 0.01 % Taniya 1 DROPS OP HS for 90 Days, #7.5 ML 3 Refills Cholecalciferol (Vitamin D3) 1,000 Inter.unit Tab 2000 UNITS PO QAM Ferrous Sulfate (Kp Ferrous Sulfate) 325 Mg Tab 1 TAB PO BID, TAB 3 Refills Magnesium Oxide (Mag-Ox) 400 Mg Tab 400 MG PO QAM, TAB Metoprolol Succ (Toprol Xl) (Toprol-Xl) 25 Mg Tabcr 12.5 MG PO DAILY, #30 TAB Multivitamin (Multivitamin) Tab 1 TAB PO QAM, TAB Pantoprazole (Protonix) 40 Mg Tab 40 MG PO QAM, #30 TAB Polyethylene (Miralax) 17 Gm Pow 17 GM PO DAILY, #1 BTL 2 Refills Senna (Senokot) 8.6 Mg Tab 1 TAB PO QAM, TAB Sertraline (Zoloft) 50 Mg Tab 1.5 TAB PO QAM for 30 Days, #45 TAB 2 Refills Discontinued Medications: Apixaban (Eliquis) 5 Mg Tab 5 MG PO BID, TAB Aspirin (Aspirin Low Dose) 81 Mg Tab 81 MG PO DAILY Furosemide (Lasix) 20 Mg Tab 20 MG PO DAILY Discharge Exam Pt has no new complaints on day of discharge. Denies chest pain or difficulty breathing, eating and voiding well. Discussed plan of care on discharge to help strengthen him to increase independence. Pt agreeable. ROS See HPI for pertinent positives and negatives. PE GENERAL: Awake, alert, in no distress. Nasal cannula in place. EYES: Normal conjunctiva. Sclera non-icteric. RESPIRATORY: Mildly diminished breath sounds at bases bilaterally. CARDIAC: Regular rate, normal rhythm. Extremities warm and well perfused. Pulses equal. +systolic murmur heard best over RT upper sternal border ABDOMEN: Soft, non-distended. No tenderness to palpation. No rebound or guarding. No masses. NEURO: No motor deficits noted. + Dysphasia SKIN: No rash or jaundice noted. SKIN: No rash or jaundice noted. Hospital Course 71M admitted 18Mar for h/o SOB found to have profound anemia (Hgb 4.3) and evidence of GIB (+FOBT) while on Eliquis. Transfused with 4UPRBCs and 2UFFP in ED. Developed fluid overload, given lasix IV and oxygen. On discharge, Hgb is stable at 7.5. Eliquis and aspirin are held -- can consider restarting those for anticoagulation due to AFIB. GIB has resolved itself, GI will do scope on outpatient basis. Plan to rehab at SNF with goal to return home once independent. - Continue PPI as above. - Continue lasix on discharge, can give extra dose as needed for fluid overload /hypoxemia/swelling. - Wean O2 as tolerated. - Repeat BMP in 2-3 days to monitor kidney function. 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 Acute blood loss anemia - GIB requiring tranfusion with 4 units PRBC and 2 units FFP in total. Per GI: Plan is to scope in outpatient setting. Continue PPI BID. - pt has h/o chronic iron deficient anemia followed by Heme/onc, with iron transfusion treatment in recent past. However during prior hospitalization was started on anticoagulation for paroxysmal AFIB. No ale active bleeding, and is responding well to transfusion. Eliquis and ASA have been held, cardio following and agree, however will need to weigh pros/cons and risk/benefits of further anticoagulation in the future. Hypoxemia - likely 2/2 fluid overload due to transfusions - Necessary transfusions when pt was near hemorrhagic shock and hemoglobin 4.3. Have been diuresing, continue Lasix 40BID. Replete K 40meq BID added. Elevated troponin - probable NSTEMI, POA - Monitored until peak, as per cardiology. Thought to be due to cardiac injury in setting of profound anemia and hypotension on arrival. Low suspicion for acute coronary syndrome. Echo here shows no significant change to LV function from prior echo in Jul 2017. Hypotension - acute on chronic per pt's history, in setting of profound anemia on arrival. Has improved some, and will check orthostatics, however pt is mostly asymptomatic. Follow. - Benazapril 10mg daily held, restarted on discharge as above - Toprol XL 12.5mg daily continued Paroxysmal AFIB - anticoagulation contraindicated at this time HELD - reconsider restart as above. - Amiodarone continued. Toprol XL contd. Currently sinus 60s-70s JAVIER on CKDII stable. Follow BMP. Depression: Continue Zoloft DVT prophylaxis: Chemical anticoagulation contraindicated due to anemia, SCDs given here. Code status: LEVEL I, FULL Resident Physician Supervision Note: I interviewed and examined the patient. Discussed with Dr. García and agree with findings and plan as documented in the note. Any exceptions or clarifications are listed here: None Documented By: Aramis Cheatham feeling better each day stable for SNF w rehab emphasis vitals noted nad breathing unlabored less O2 than before yet again, lungs faint rales mid L but was laying flat just prior to exam; no pallor or icterus acute/subacute hemorrhagic anemia w hypotension (early hemorrhagic shock) now improving in the setting of eliquis for afib -totally stable -endoscopic w/u as outpt in near but not emergent future as long as still no evidence of rebleed -required 4 units thus far; ideally w heart disease would give another, for now w CHF and lack of anemia sx, will hold on further transfusion (can be pursued as outpt if he is showing fatigue w therapy) acute on chronic systolic CHF -worse EF due to severe anemia/severe demand ischemia (?hopefully will recover with time) -diureses ongoing but now stable for PO lasix and outpt f/u - follow clinical status, weight, BMP as above -fluid related to blood products obviously was necessary -repeat echo 1-3 months elevated troponin -no sx or EKG changes c/w IA. appearing to be severe demand ischemia due to profound anemia, med management, no sx, f/u echo after recovery AKF -related to anemia -improved s/p transfusion -following w diuresis - still normal creatinine though (anticipate sl rise once he's finally euvolemic but has yet to occur) possible severe protein calorie malnutrition -nutrition assistance appreciated close outpt f/u will be needed as well afib -stroke risk obviously remains; this was a life-altering level of bleed possibly making it preclude future anticoagulation; however, had he presented sooner in the course it wouldve simply been anemia requiring transfusion - will need ongoing vigilance and risks/benefit balance ongoing weighing for +/- eventual resumption of anticoagulation Total Time Spent: Greater than 30 minutes This includes examination of the patient, discharge planning, medication reconciliation, and communication with other providers. Discharge Instructions Please refer to the electronic Patient Visit Report (Discharge Instructions) for additional information. Additional Copies To Alex Masrhall M.D.
[2017-10-18] MEDS ORDERED: FUROSEMIDE 40 MG TAB PO SCH (08:00)
== END 2017-10-17 16:30 | DRG 813 ==
LOC: EDBD 13:35 → C.EDC 13:36 → C.2E 15:08 → ENRESERV 15:41 → C.MS4W 10-16 17:48
PROVIDERS: ADMIT Family Medicine; ATTEND Family Medicine
DX: D68.32 Hemorrhagic disorder due to extrinsic circulating anticoagulants (principal); R57.8 Other shock; K29.81 Duodenitis with bleeding; E43 Unspecified severe protein-calorie malnutrition; I21.4 Non-ST elevation (NSTEMI) myocardial infarction; I13.0 Hypertensive heart and chronic kidney disease with heart failure and stage 1 through stage 4 chronic kidney disease, or unspecified chronic kidney disease; I50.23 Acute on chronic systolic (congestive) heart failure; I42.0 Dilated cardiomyopathy; I47.1 Supraventricular tachycardia; D62 Acute posthemorrhagic anemia; N17.9 Acute kidney failure, unspecified; D50.9 Iron deficiency anemia, unspecified; K21.9 Gastro-esophageal reflux disease without esophagitis; I48.0 Paroxysmal atrial fibrillation; I25.10 Atherosclerotic heart disease of native coronary artery without angina pectoris; E78.5 Hyperlipidemia, unspecified; I08.0 Rheumatic disorders of both mitral and aortic valves; R09.02 Hypoxemia; I27.20 Pulmonary hypertension, unspecified; N18.2 Chronic kidney disease, stage 2 (mild); F32.9 Major depressive disorder, single episode, unspecified; Z79.01 Long term (current) use of anticoagulants; Z79.82 Long term (current) use of aspirin; Z79.899 Other long term (current) drug therapy; Z95.5 Presence of coronary angioplasty implant and graft; Z87.891 Personal history of nicotine dependence; Z68.22 Body mass index [BMI] 22.0-22.9, adult; T45.515A Adverse effect of anticoagulants, initial encounter

== ENCOUNTER → 2017-11-11 | Outpatient (CLI) | payer BC ==
[~2017-11-11] MED LIST changes: -APIX1TAB3 PO; +ASPCH81X PO; -ASPI1TAB48 PO; +BENA10TA10 PO; -BIMA0.01 OP; +BIMA0.01 OPB; +BISA10SU5 PR; +CHOL200027; +FRS/40 PO; -FURO40TA3 PO; +MOML PO; -MRLP17 PO; +POLY335019 PO; +POTA-639 PO; +SERT1TAB71 PO; -SERT50TA PO; +SODIENE PR; -VTMD1000 PO
[2017-11-11 09:33] LABS: HEMATOCRIT 32.4 % (42-52); HEMOGLOBIN 9.9 g/dL (14.0-18.0); MEAN CELL VOLUME 86.9 fL (80-100); MEAN CORPUSCULAR HEMOGLOBIN 26.5 pg (25-34); MEAN CORPUSCULAR HGB CONC 30.6 g/dl (32-36); MEAN PLATELET VOLUME 10.1 fL (7.4-10.4); PLATELET COUNT 195 K/uL (130-400); RED CELL DISTRIBUTION WIDTH CV 17.8 % (11.5-14.5); RED CELL DISTRIBUTION WIDTH SD 56.9 fL (36.4-46.3); WHITE BLOOD COUNT 4.91 K/uL (4.8-10.8)
[2017-11-11 09:35] LABS: BLOOD UREA NITROGEN 14 mg/dl (7-18); CALCIUM 8.7 mg/dl (8.5-10.1); CARBON DIOXIDE 34 mmol/L (21-32); CREATININE 0.87 mg/dl (0.60-1.40); GLUCOSE 83 mg/dl (70-99); POTASSIUM 4.6 mmol/L (3.5-5.1); SODIUM 136 mmol/L (136-145)
== END ==
LOC: C.LABCC 08:41
PROVIDERS: ATTEND Internal Medicine
DX: K92.2 Gastrointestinal hemorrhage, unspecified (principal)

== ENCOUNTER → 2017-11-14 | Day surgery (SDC) | payer BC ==
[2017-11-07 08:47] VITALS: Ht 175.3 cm; Wt 71.4 kg
--- NOTE | 2017-11-07 09:13 | PAT Medication Instructions ---
Service Date Nov 07, 2017. Current Home Medication List Acetaminophen (Tylenol), 650 MG PO Q6 PRN for Pain or Fever Amiodarone Hcl (Cordarone), 200 MG PO DAILY Aspirin (Aspirin Chewable), 81 MG PO DAILY Atorvastatin (Lipitor), 80 MG PO DAILY Benazepril (Lotensin), 10 MG PO DAILY Bimatoprost (Lumigan), 1 DROPS OPB DAILY Bisacodyl (Bisacodyl), 1 DOSE [place] DIRECTED PRN for Constipation Ferrous Sulfate (Kp Ferrous Sulfate), 1 TAB PO DAILY Furosemide (Lasix), 40 MG PO BID Magnesium Hydroxide (Milk Of Magnesia), 30 ML PO DIRECTED PRN for Constipation Magnesium Oxide (Mag-Ox), 400 MG PO DAILY Metoprolol Succ (Toprol Xl) (Toprol-Xl), 12.5 MG PO DAILY Multivitamin (Multivitamin), 1 TAB PO DAILY Pantoprazole (Protonix), 40 MG PO DAILY Polyethylene Glycol 3350 (Miralax), 17 GM PO DAILY PRN for Constipation Potassium Ext Rel (Klor-Con), 20 MEQ PO DAILY Senna (Senokot), 1 TAB PO DAILY PRN for Constipation Sertraline Hcl (Zoloft), 75 MG PO DAILY Sodium Phosphate/Biphosphate (Fleet Enema), 1 EA [place] DAILY PRN for Constipation Medication Instructions For Your Scheduled Surgery -Verify with your prescriber and surgeon for instructions: Aspirin (Aspirin Chewable), 81 MG PO DAILY - Hold the following medications 24 hours prior to surgery: Furosemide (Lasix), 40 MG PO BID - The following medications MAY NOT BE TAKEN the morning of surgery: Benazepril (Lotensin), 10 MG PO DAILY Bisacodyl (Bisacodyl), 1 DOSE [place] DIRECTED PRN for Constipation Ferrous Sulfate (Kp Ferrous Sulfate), 1 TAB PO DAILY Magnesium Hydroxide (Milk Of Magnesia), 30 ML PO DIRECTED PRN for Constipation Magnesium Oxide (Mag-Ox), 400 MG PO DAILY Multivitamin (Multivitamin), 1 TAB PO DAILY Polyethylene Glycol 3350 (Miralax), 17 GM PO DAILY PRN for Constipation Potassium Ext Rel (Klor-Con), 20 MEQ PO DAILY Senna (Senokot), 1 TAB PO DAILY PRN for Constipation Sodium Phosphate/Biphosphate (Fleet Enema), 1 EA NJ DAILY PRN for Constipation - The following medications MAY be taken the morning of surgery with a sip of water: Acetaminophen (Tylenol), 650 MG PO Q6 PRN for Pain or Fever (if needed) Amiodarone Hcl (Cordarone), 200 MG PO DAILY Atorvastatin (Lipitor), 80 MG PO DAILY Bimatoprost (Lumigan), 1 DROPS OPB DAILY Metoprolol Succ (Toprol Xl) (Toprol-Xl), 12.5 MG PO DAILY Pantoprazole (Protonix), 40 MG PO DAILY Sertraline Hcl (Zoloft), 75 MG PO DAILY - The following medications may be taken the night before surgery: Acetaminophen (Tylenol), 650 MG PO Q6 PRN for Pain or Fever (if needed) Bisacodyl (Bisacodyl), 1 DOSE [place] DIRECTED PRN for Constipation (if needed) Magnesium Hydroxide (Milk Of Magnesia), 30 ML PO DIRECTED PRN for Constipation (if needed) Polyethylene Glycol 3350 (Miralax), 17 GM PO DAILY PRN for Constipation (if needed) Senna (Senokot), 1 TAB PO DAILY PRN for Constipation (if needed) Sodium Phosphate/Biphosphate (Fleet Enema), 1 EA NJ DAILY PRN for Constipation ( if needed) If you have any questions please call us at [phone] or [phone] or [phone]
[~2017-11-14] VITALS: Ht 175.3 cm; Wt 71.4 kg
[~2017-11-14] MED LIST changes: +LIDOCAINE HCL 2% 2 ML VIAL (20MG/ML) ONE; +PROPOFOL IV EMULSION 10 MG/ML 20 ML VIAL IV ONE; +SODIUM CHLORIDE 0.9% 500ML 500 ML IV ONE
--- NOTE | 2017-11-14 14:36 | Endo History and Physical ---
History & Physical Date of Service: Nov 14, 2017. Chief Complaint: Anemia Referring Physician: Dr. Alex Marshall History of Present Illness anemia- for EGD/push enteroscopy Past Surgical History Hx Cardiac Surgery: Yes (HEART CATH X 2? (1 STENT PLACED)) Hx Internal Defibrillator: No Hx Pacemaker: No Hx Abdominal Surgery: No Hx of Implantable Prosthesis: No Hx Post-Op Nausea and Vomiting: No Hx Cancer Surgery: No Hx Thoracic Surgery: No Hx Orthopedic: Yes (LEFT KNEE SURGERY X 3) Hx Urinary Tract Surgery: No Social History Smoking Status: Former Smoker Hx Substance Use: No Hx Alcohol Use: No Allergies Coded Allergies: No Known Allergies (Verified , 11/07/17) Current Medications Reported Home Medications Medications Dose Route/Sig Max Daily Dose Days Date Category Vitamin D-3 (Cholecalciferol) 2,000 Unit Tab 11/14/17 Reported Zoloft (Sertraline Hcl) 50 Mg Tab 75 Mg PO DAILY 11/07/17 Reported Senokot (Senna) 8.6 Mg Tab 1 Tab PO DAILY PRN 11/07/17 Reported Protonix (Pantoprazole Sodium) 40 Mg Tab 40 Mg PO DAILY 11/07/17 Reported Miralax (Polyethylene Glycol 3350) 1 Pow Pow 17 Gm PO DAILY PRN 11/07/17 Reported Milk Of Magnesia (Magnesium Hydroxide) 30 Ml Susp 30 Ml PO DIRECTED PRN 11/07/17 Reported Toprol-Xl (Metoprolol Succinate) 25 Mg Tabcr 12.5 Mg PO DAILY 11/07/17 Reported Mag-Ox (Magnesium Oxide) 400 Mg Tab 400 Mg PO DAILY 11/07/17 Reported Lumigan (Bimatoprost) 0.01 % Taniya 1 Drops OPB DAILY 11/07/17 Reported Klor-Con (Potassium Chloride) 20 Meq Tabcr 20 Meq PO DAILY 11/07/17 Reported Lasix (Furosemide) 40 Mg Tab 40 Mg PO BID 11/07/17 Reported Fleet Enema (Sodium Phosphate/Biphosphate) Selena 1 Ea ID DAILY PRN 11/07/17 Reported Kp Ferrous Sulfate (Ferrous Sulfate) 325 Mg Tab 1 Tab PO DAILY 11/07/17 Reported Bisacodyl 10 Mg Sup 1 Dose ID DIRECTED PRN 11/07/17 Reported Aspirin Chewable (Aspirin) 81 Mg Chew 81 Mg PO DAILY 11/07/17 Reported Lotensin (Benazepril HCl) 10 Mg Tab 10 Mg PO DAILY 10/12/17 Reported Cordarone (Amiodarone Hcl) 200 Mg Tab 200 Mg PO DAILY 09/15/17 Reported Lipitor (Atorvastatin Calcium) 80 Mg Tab 80 Mg PO DAILY 08/06/17 Reported Multivitamin (Multivitamins) Tab 1 Tab PO DAILY 01/21/17 Reported Tylenol (Acetaminophen) 325 Mg Tab 650 Mg PO Q6 PRN 04/19/16 Reported Vital Signs Weight (Kilograms): 71.36 Height (Feet): 0 Height (Inches): 69 Date Time Temp Pulse Resp B/P (MAP) Pulse Ox O2 Delivery O2 Flow Rate FiO2 11/14/17 13:45 36.5 65 20 145/71 (95) 95 Room Air Physical Exam General Appearance: WD/WN, no apparent distress Respiratory/Chest: Auscultation: breath sounds normal Cardiovascular: Heart Auscultation: RRR Abdomen: Bowel Sounds: normal Inspection & Palpation: soft, non-distended, no tenderness, guarding & rebound Assessment and Plan EGD/push
--- NOTE | 2017-11-14 15:10 | Discharge Instructions ---
Endoscopy Patient Instructions Date / Procedure(s) Performed Nov 14, 2017. EGD Allergy Information Coded Allergies: No Known Allergies (Verified , 11/07/17) Discharge Date / Findings Nov 14, 2017. normal EGD and push enteroscopy Medication Instructions Stopped Medication(s): Aspirin on hold for 6 days Restart Stopped Medication(s): Reported Home Medications Medications Dose Route/Sig Max Daily Dose Days Date Category Vitamin D-3 (Cholecalciferol) 2,000 Unit Tab 11/14/17 Reported Zoloft (Sertraline Hcl) 50 Mg Tab 75 Mg PO DAILY 11/07/17 Reported Senokot (Senna) 8.6 Mg Tab 1 Tab PO DAILY PRN 11/07/17 Reported Protonix (Pantoprazole Sodium) 40 Mg Tab 40 Mg PO DAILY 11/07/17 Reported Miralax (Polyethylene Glycol 3350) 1 Pow Pow 17 Gm PO DAILY PRN 11/07/17 Reported Milk Of Magnesia (Magnesium Hydroxide) 30 Ml Susp 30 Ml PO DIRECTED PRN 11/07/17 Reported Toprol-Xl (Metoprolol Succinate) 25 Mg Tabcr 12.5 Mg PO DAILY 11/07/17 Reported Mag-Ox (Magnesium Oxide) 400 Mg Tab 400 Mg PO DAILY 11/07/17 Reported Lumigan (Bimatoprost) 0.01 % Taniya 1 Drops OPB DAILY 11/07/17 Reported Klor-Con (Potassium Chloride) 20 Meq Tabcr 20 Meq PO DAILY 11/07/17 Reported Lasix (Furosemide) 40 Mg Tab 40 Mg PO BID 11/07/17 Reported Fleet Enema (Sodium Phosphate/Biphosphate) Selena 1 Ea NC DAILY PRN 11/07/17 Reported Kp Ferrous Sulfate (Ferrous Sulfate) 325 Mg Tab 1 Tab PO DAILY 11/07/17 Reported Bisacodyl 10 Mg Sup 1 Dose NC DIRECTED PRN 11/07/17 Reported Aspirin Chewable (Aspirin) 81 Mg Chew 81 Mg PO DAILY 11/07/17 Reported Lotensin (Benazepril HCl) 10 Mg Tab 10 Mg PO DAILY 10/12/17 Reported Cordarone (Amiodarone Hcl) 200 Mg Tab 200 Mg PO DAILY 09/15/17 Reported Lipitor (Atorvastatin Calcium) 80 Mg Tab 80 Mg PO DAILY 08/06/17 Reported Multivitamin (Multivitamins) Tab 1 Tab PO DAILY 01/21/17 Reported Tylenol (Acetaminophen) 325 Mg Tab 650 Mg PO Q6 PRN 04/19/16 Reported You may start your blood thinner at any time if your doctor still is using this medication Reported Home Medications Medications Dose Route/Sig Max Daily Dose Days Date Category Vitamin D-3 (Cholecalciferol) 2,000 Unit Tab 11/14/17 Reported Zoloft (Sertraline Hcl) 50 Mg Tab 75 Mg PO DAILY 11/07/17 Reported Senokot (Senna) 8.6 Mg Tab 1 Tab PO DAILY PRN 11/07/17 Reported Protonix (Pantoprazole Sodium) 40 Mg Tab 40 Mg PO DAILY 11/07/17 Reported Miralax (Polyethylene Glycol 3350) 1 Pow Pow 17 Gm PO DAILY PRN 11/07/17 Reported Milk Of Magnesia (Magnesium Hydroxide) 30 Ml Susp 30 Ml PO DIRECTED PRN 11/07/17 Reported Toprol-Xl (Metoprolol Succinate) 25 Mg Tabcr 12.5 Mg PO DAILY 11/07/17 Reported Mag-Ox (Magnesium Oxide) 400 Mg Tab 400 Mg PO DAILY 11/07/17 Reported Lumigan (Bimatoprost) 0.01 % Taniya 1 Drops OPB DAILY 11/07/17 Reported Klor-Con (Potassium Chloride) 20 Meq Tabcr 20 Meq PO DAILY 11/07/17 Reported Lasix (Furosemide) 40 Mg Tab 40 Mg PO BID 11/07/17 Reported Fleet Enema (Sodium Phosphate/Biphosphate) Selena 1 Ea NC DAILY PRN 11/07/17 Reported Kp Ferrous Sulfate (Ferrous Sulfate) 325 Mg Tab 1 Tab PO DAILY 11/07/17 Reported Bisacodyl 10 Mg Sup 1 Dose NC DIRECTED PRN 11/07/17 Reported Aspirin Chewable (Aspirin) 81 Mg Chew 81 Mg PO DAILY 11/07/17 Reported Lotensin (Benazepril HCl) 10 Mg Tab 10 Mg PO DAILY 10/12/17 Reported Cordarone (Amiodarone Hcl) 200 Mg Tab 200 Mg PO DAILY 09/15/17 Reported Lipitor (Atorvastatin Calcium) 80 Mg Tab 80 Mg PO DAILY 08/06/17 Reported Multivitamin (Multivitamins) Tab 1 Tab PO DAILY 01/21/17 Reported Tylenol (Acetaminophen) 325 Mg Tab 650 Mg PO Q6 PRN 04/19/16 Reported You may start your blood thinner at any time if your doctor still is using this medication Provider Instructions Activity Restrictions - No exercising or heavy lifting for 24 hours. - Do not drink alcohol the day of the procedure. - Do not drive a car or operate machinery until the day after the procedure. - Do not make any important decisions or sign important papers in 24 hours after the procedure. Following Day: - Return to full activity which may include returning to work/school. Diet Start your diet with liquids and light foods (jello, soup, juice, toast). Then eat your usual diet if not nauseated. Treatment For Common After Affects For mild abdominal pain, bloating, or excessive gas: - Rest - Eat lightly - Lie on right side Follow-Up Information Follow-up with Dr. Alex Marshall as scheduled Anesthesia Information What You Should Know You have had a procedure that required some medicine to reduce anxiety and discomfort. This treatment is called moderate sedation. After receiving the treatment, you may be sleepy, but you will be able to breathe on your own. The effects of the treatment may last for several hours. Follow these instructions along with Activity/Diet recommendations noted above: * Do NOT do anything where dizziness or clumsiness would be dangerous. * Rest quietly at home today, then you can be up and about tomorrow. * Have a responsible person stay with you the rest of today. * You may have had an I.V. today. If so, you may take the dressing off later today. Recommendations Call your doctor if: * Trouble breathing * Continuous vomiting for more than 24 hours * Temperature above 101 degrees * Severe abdominal pain or bloating * Pain not relieved by pain medicine ordered * There is increased drainage or redness from any incision * A large amount of rectal bleeding greater than 2-3 tablespoons. (If you had a polyp/s removed or have hemorrhoids, a small amount of blood - from the rectum is to be expected.) * You have any unanswered questions or concerns. IN THE EVENT OF A SERIOUS EMERGENCY, GO TO THE NEAREST EMERGENCY ROOM Your discharge instructions were prepared by provider Ray Caldera. Patient Instructions Signature Page Vasu Rizo Patient (or Guardian) Signature/Date: I have read and understand the instructions given to me by my caregivers. Caregiver/RN/Doctor Signature/Date: The above-named patient and/or guardian has received patient instructions on this date. + Original Patient Signature Page (only) stays with chart. Please make copy for patient.
--- NOTE | 2017-11-14 15:21 | Anesthesiology Progress Note ---
Anesthesia Post Op Note Date & Time Nov 14, 2017 at 15:21 Vital Signs Pain Intensity: 0 Vital Signs Past 12 Hours Date Time Temp Pulse Resp B/P (MAP) Pulse Ox O2 Delivery O2 Flow Rate FiO2 11/14/17 15:12 65 16 97/56 (70) 94 Room Air 11/14/17 13:45 36.5 65 20 145/71 (95) 95 Room Air Notes Mental Status: alert / awake / arousable, participated in evaluation Pt Amnestic to Procedure: Yes Nausea / Vomiting: adequately controlled Pain: adequately controlled Airway Patency, RR, SpO2: stable & adequate BP & HR: stable & adequate Hydration State: stable & adequate Anesthetic Complications: no major complications apparent
--- NOTE | 2017-11-14 15:22 | GI REPORT ---
Procedure Date: 11/14/2017 2:39 PM Procedure: Small bowel enteroscopy Indications: Iron deficiency anemia secondary to chronic blood loss, Melena Medicines: Propofol per Anesthesia Complications: No immediate complications. Estimated blood loss: None. Estimated Blood Loss: Estimated blood loss: none. Procedure: Pre-Anesthesia Assessment: - Prior to the procedure, a History and Physical was performed, and patient medications and allergies were reviewed. The patient's tolerance of previous anesthesia was also reviewed. The risks and benefits of the procedure and the sedation options and risks were discussed with the patient. All questions were answered, and informed consent was obtained. Prior Anticoagulants: The patient has taken no previous anticoagulant or antiplatelet agents. ASA Grade Assessment: III - A patient with severe systemic disease. After reviewing the risks and benefits, the patient was deemed in satisfactory condition to undergo the procedure. After obtaining informed consent, the endoscope was passed under direct vision. Throughout the procedure, the patient's blood pressure, pulse, and oxygen saturations were monitored continuously. The scope was introduced through the mouth, and advanced to the second part of duodenum. After obtaining informed consent, the endoscope was passed under direct vision. Throughout the procedure, the patient's blood pressure, pulse, and oxygen saturations were monitored continuously.The upper GI endoscopy was accomplished without difficulty. The patient tolerated the procedure well. Findings: The examined esophagus was normal. The Z-line was regular and was found 40 cm from the incisors. The entire examined stomach was normal. The examined duodenum was normal. There was no evidence of significant pathology in the mid-jejunum at 170 cm (from the incisors). The cardia and gastric fundus were normal on retroflexion. Impression: - Normal esophagus. - Z-line regular, 40 cm from the incisors. - Normal stomach. - Normal examined duodenum. - The examined portion of the jejunum was normal. - No specimens collected. Recommendation: - Discharge patient to home. - Advance diet as tolerated. - Resume Eliquis (apixaban) at prior dose today. - Return to referring physician as previously scheduled. MD Ray Woodson MD 11/14/2017 3:22:06 PM This report has been signed electronically. Note Initiated On: 11/14/2017 2:39 PM I attest to the content of the Intraoperative Record and orders documented therein, exceptions below
[2017-11-14 15:52] VITALS: BP 124/55; PULSE 60; O2SAT 93
== END | disposition home or self-care (01) ==
LOC: C.GI 13:22
PROVIDERS: ATTEND Internal Medicine Gastroenterology
DX: D50.0 Iron deficiency anemia secondary to blood loss (chronic) (principal); K92.1 Melena; F32.9 Major depressive disorder, single episode, unspecified; I25.10 Atherosclerotic heart disease of native coronary artery without angina pectoris; I35.0 Nonrheumatic aortic (valve) stenosis; I48.0 Paroxysmal atrial fibrillation; I50.20 Unspecified systolic (congestive) heart failure; I25.5 Ischemic cardiomyopathy; I42.0 Dilated cardiomyopathy; I11.9 Hypertensive heart disease without heart failure; Z79.82 Long term (current) use of aspirin; Z79.899 Other long term (current) drug therapy; Z87.891 Personal history of nicotine dependence; Z98.890 Other specified postprocedural states; Z83.3 Family history of diabetes mellitus; Z82.49 Family history of ischemic heart disease and other diseases of the circulatory system; Z79.01 Long term (current) use of anticoagulants

== ENCOUNTER → 2017-11-18 | Outpatient (CLI) | payer BC ==
[~2017-11-18] MED LIST changes: -LIDOCAINE HCL 2% 2 ML VIAL (20MG/ML) ONE; -PROPOFOL IV EMULSION 10 MG/ML 20 ML VIAL IV ONE; -SODIUM CHLORIDE 0.9% 500ML 500 ML IV ONE
--- NOTE | 2017-11-18 11:46 | DIAGNOSTIC IMAGING REPORT ---
CHEST 2 VIEWS ROUTINE CLINICAL HISTORY: RECURRENT RIGHT PLEURAL EFFUSION COMPARISON STUDY: 10/14/2017 FINDINGS: Mild stable cardiomegaly. Overall cardiac size. Slightly improved from the prior exam. Moderately diminished pulmonary vasculature. Improving parenchymal infiltrative changes both lung bases. Very small left effusion unchanged. Trace pleural fluid right lateral costophrenic angle IMPRESSION: Improving components of congestive failure versus bilateral parenchymal infiltrates. Minimal bilateral pleural effusions. The above report was generated using voice recognition software. It may contain grammatical, syntax or spelling errors. Electronically signed by: John Linder M.D. 11/18/2017 11:45 AM Dictated Date/Time: 11/18/2017 11:41 AM
== END | disposition home or self-care (01) ==
LOC: C.RAD1850 10:23
PROVIDERS: ATTEND Surgery
DX: J90 Pleural effusion, not elsewhere classified (principal)

== ENCOUNTER → 2017-11-25 | Outpatient (CLI) | payer BC ==
[2017-11-25 17:06] LABS: BLOOD UREA NITROGEN 19 mg/dl (7-18); CARBON DIOXIDE 37 mmol/L (21-32); GLUCOSE 100 mg/dl (70-99); POTASSIUM 4.3 mmol/L (3.5-5.1); SODIUM 136 mmol/L (136-145)
[2017-11-25 17:34] LABS: HEMATOCRIT 35.9 % (42-52); HEMOGLOBIN 10.8 g/dL (14.0-18.0); MEAN CELL VOLUME 87.6 fL (80-100); MEAN CORPUSCULAR HEMOGLOBIN 26.3 pg (25-34); MEAN CORPUSCULAR HGB CONC 30.1 g/dl (32-36); PLATELET COUNT 286 K/uL (130-400); RED CELL DISTRIBUTION WIDTH CV 17.7 % (11.5-14.5); RED CELL DISTRIBUTION WIDTH SD 57.4 fL (36.4-46.3); WHITE BLOOD COUNT 6.45 K/uL (4.8-10.8)
== END | disposition home or self-care (01) ==
LOC: C.LABBC 12:08
PROVIDERS: ATTEND Physician Assistant Medical
DX: I50.20 Unspecified systolic (congestive) heart failure (principal); D50.0 Iron deficiency anemia secondary to blood loss (chronic); I25.10 Atherosclerotic heart disease of native coronary artery without angina pectoris

== ENCOUNTER → 2018-03-11 | Outpatient (CLI) | payer BC ==
[2018-03-11 17:20] LABS: BASO % 0.5 %; BASO ABS # 0.03 K/uL (0-0.2); EOS % 3.1 %; EOS ABS # 0.19 K/uL (0-0.5); HEMATOCRIT 35.5 % (42-52); HEMOGLOBIN 10.8 g/dL (14.0-18.0); IG# 0.01 K/uL (0.00-0.02); LYMPH % 13.4 %; LYMPH ABS # 0.82 K/uL (1.2-3.4); MEAN CELL VOLUME 89.4 fL (80-100); MEAN CORPUSCULAR HEMOGLOBIN 27.2 pg (25-34); MEAN CORPUSCULAR HGB CONC 30.4 g/dl (32-36); MEAN PLATELET VOLUME 10.9 fL (7.4-10.4); MONO % 7.2 %; MONO ABS # 0.44 K/uL (0.11-0.59); NEUT % 75.6 %; NEUT ABS # 4.65 K/uL (1.4-6.5); PLATELET COUNT 211 K/uL (130-400); RED CELL DISTRIBUTION WIDTH CV 16.6 % (11.5-14.5); RED CELL DISTRIBUTION WIDTH SD 54.4 fL (36.4-46.3); WHITE BLOOD COUNT 6.14 K/uL (4.8-10.8)
[2018-03-11 17:35] LABS: ALBUMIN 3.4 gm/dl (3.4-5.0); ALKALINE PHOSPHATASE 159 U/L (45-117); ALT/SGPT 30 U/L (12-78); AST/SGOT 25 U/L (15-37); BLOOD UREA NITROGEN 17 mg/dl (7-18); CALCIUM 8.8 mg/dl (8.5-10.1); CARBON DIOXIDE 33 mmol/L (21-32); CHOLESTEROL 77 mg/dl (0-200); CREATININE 1.02 mg/dl (0.60-1.40); GLUCOSE 101 mg/dl (70-99); LDL CHOLESTEROL CALCULATED 10 mg/dl; POTASSIUM 4.1 mmol/L (3.5-5.1); SODIUM 137 mmol/L (136-145); TOTAL PROTEIN 7.2 gm/dl (6.4-8.2); TRANSFERRIN 285 mg/dl (200-360)
[2018-03-12 06:05] LABS: HEMOGLOBIN A1C 5.6 % (4.5-5.6)
== END | disposition home or self-care (01) ==
LOC: C.LABBC 12:19
PROVIDERS: ATTEND Internal Medicine
DX: I11.0 Hypertensive heart disease with heart failure (principal); I50.20 Unspecified systolic (congestive) heart failure; I35.0 Nonrheumatic aortic (valve) stenosis; I25.5 Ischemic cardiomyopathy; I25.10 Atherosclerotic heart disease of native coronary artery without angina pectoris; D50.0 Iron deficiency anemia secondary to blood loss (chronic); I48.0 Paroxysmal atrial fibrillation; R73.01 Impaired fasting glucose

== ENCOUNTER 2018-09-10 14:54 | Inpatient (IN) ==
[2018-09-10] MEDS ORDERED: SODIUM CHLORIDE 0.9% 500 ML IV SCH (15:30)
--- NOTE | 2018-09-10 15:34 | XRay Report ---
XR chest 1V portable CLINICAL HISTORY: Chest Pain dyspnea COMPARISON STUDY: 10/22/2017 FINDINGS: Moderate cardiomegaly. Small bilateral pleural effusions. Prominent pulmonary vasculature s uggesting component of congestive heart failure IMPRESSION: Cardiomegaly with components of congestive heart failure. Small bilateral pleural effusi ons. The above report was generated using voice recognition software. It may contain grammatical, syntax or spelling errors. Electronically signed by: John Linder M.D. 09/10/2018 3:33 PM
[2018-09-10 15:56] LABS: Basophils # (auto) 0.03 K/uL (0-0.2); Basophils % (auto) 0.6 %; Eosinophils # (auto) 0.18 K/uL (0-0.5); Eosinophils % (auto) 3.3 %; Hematocrit (blood only) 39.5 % (42-52); Hemoglobin 12.4 g/dL (14.0-18.0); Immature Granulocytes # (auto) 0.01 K/uL (0.00-0.02); Immature Granulocytes % (auto) 0.2 %; Lymphocytes # (auto) 0.48 K/uL (1.2-3.4); Lymphocytes % (auto) 8.9 %; Mean Corpuscular Hgb Conc 31.4 g/dL (32-36); Mean Platelet Volume 11.2 fL (7.4-10.4); Monocytes # (auto) 0.39 K/uL (0.11-0.59); Monocytes % (auto) 7.2 %; Neutrophils % (auto) 79.8 %; Platelet Count 167 K/uL (130-400); RDW Coefficient of Variation 16.5 % (11.5-14.5); RDW Standard Deviation 54.5 fL (36.4-46.3); Red Blood Count 4.44 M/uL (4.7-6.1); White Blood Count 5.39 K/uL (4.8-10.8)
[2018-09-10 16:11] LABS: INR 1.6 (0.9-1.1); Prothrombin Time 15.5 Seconds (9.0-12.0)
[2018-09-10 16:14] LABS: Albumin Level 2.8 gm/dl (3.4-5.0); BUN Creatinine Ratio 26.6 (10-20); Calcium 8.7 mg/dl (8.5-10.1); Creatinine Clr Calc Pharmacy 52.2 ml/min; Est GFR (African American) 68.6; Est GFR (Non-African American) 59.2
[2018-09-10 16:19] LABS: Albumin Globulin Ratio 0.7 (0.9-2); Bilirubin,Total 0.6 mg/dl (0.2-1); Globulin 3.8 gm/dl (2.5-4.0); Total Protein 6.6 gm/dl (6.4-8.2); Troponin I 0.03 ng/ml (0-0.045)
--- NOTE | 2018-09-10 17:31 | History & Physical Report ---
Date of Service September 10, 2018 Assessment & Plan (1) CHF (congestive heart failure): 72 y/o M hx CAD, combined CHF - 35%, paroxysmal AF, moderate to severe , HTN, HLD, hypothyroid, CVA with expressive dysphasia. The pt is a poor historian but states that he presented to the ER due to edema on his lower extremities. On arrival it was noted that he was hypotensive and hypoxic although relatively asymptomatic. He denies CP, SOB, cough or fevers. Initial evaluation including imaging and clinical exam is consistent with CHF exacerbation. His systolic blood pressure has been 85-95 while in the ER. 1) CHF exacerbation - there is some question of cardiogenic shock due to his low BP with volume overload, however, he is presently asymptomatic with a stable pressure. We will start diuresis with Lasix and monitor his BP. If he needs fluids, we may have to consider providing Dopamine as a transition to Dobutamine. We will consult cardiology and repeat and echo to assess any change to his EF. Srict I/O and daily weights requested. We have presently held his JACQUE and B salbador as he would not likely tolerate any antihypertensives at present. 2) CAD - no evidence of ACS - a repeat trop is pending. We will continue ASA and his statin. 3) Paroxysmal AF - presently not anticoagulated despite high risk. May be due to fall risk or prior GI bleed as he has a history of Caio's gland hyperplasia. He is in a sinus rhythm on admission although mildly tachy. we have held his B salbador due to hypotension. This should be reintroduced when possible. 4) Hypothyroidism - cont synthroid - TSH pending as this could certainly contribute to his symptoms 5) HTN/HLD - cont statin - JACQUE and Metoprolol held due to hypotension Full code - Heparin prophylaxis Total time for this admit including review of labs, meds, imaging, records - discussion with pt, ER attending, cardiology - 38 min Present on Admission?: Yes History of Present Illness Chief Complaint: Edema of lower extremities Primary Care Provider: Alex Marshall MD 72 y/o M hx CAD, combined CHF - 35%, paroxysmal AF, moderate to severe , HTN, HLD, hypothyroid, CVA with expressive dysphasia. The pt is a poor historian but states that he presented to the ER due to edema on his lower extremities. On arrival it was noted that he was hypotensive and hypoxic although relatively asymptomatic. He denies CP, SOB, cough or fevers. Initial evaluation including imaging and clinical exam is consistent with CHF exacerbation. His systolic blood pressure has been 85-95 while in the ER. 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 12) Hypothyroidism 13) CVA - residual expressive dysphasia Surgical: 1) Pleurodesis 2) RCA stent 3) L knee arthroscopy Social: Lives alone Distant history of smoking - does not drink alcohol Family: Could not provide a family history Allergies Allergy/AdvReac Type Severity Reaction Status Date / Time No Known Allergies Allergy Verified 09/10/18 17:18 Home Medications Home Medications Medication Instructions Recorded Confirmed Type Unknown Daily Vitamin 1 tab PO DAILY 09/10/18 History aspirin [Aspirin Low Dose] 81 mg PO DAILY 09/10/18 09/10/18 History atorvastatin 09/10/18 History benazepril 10 mg PO QAM 09/10/18 09/10/18 History bimatoprost [Lumigan] 09/10/18 History cholecalciferol (vitamin D3) 1 cap PO QAM 09/10/18 09/10/18 History [Vitamin D3] ferrous sulfate 1 tab PO BID 09/10/18 09/10/18 History furosemide 1 tab PO DIRECTED 09/10/18 09/10/18 History levothyroxine 25 mcg PO QAM 09/10/18 09/10/18 History magnesium oxide 1 tab PO QPM 09/10/18 09/10/18 History metoprolol succinate 0.5 tab PO QPM 09/10/18 09/10/18 History pantoprazole 40 mg PO QPM 09/10/18 09/10/18 History potassium chloride [Klor-Con M20] 20 meq PO QPM 09/10/18 09/10/18 History sennosides-docusate sodium [Senna 1 tab PO QPM 09/10/18 09/10/18 History Plus] sertraline 1.5 tab PO QPM 09/10/18 09/10/18 History Past Med/Surg History Medical History CAD in [place] artery HLD (hyperlipidemia) Hypertension Atrial fibrillation Surgical History H/O heart artery stent Family History Other Family history non-contributory Social History Current Living Situation: Alone Other Information That Helps Us Care for You: No Feels Safe at Home: Yes Safety Concerns: Feels Safe At This Time Smoking Status: Former smoker Do You Dip or Chew Tobacco: No Second Hand Exposure: No Tobacco Cessation Education Requested by Patient: No Hx Alcohol Use: No Hx Substance Use: No Beliefs That Will Affect Care: None Preferred Language: Turkish Communication Ability: Effective Inspector Packer Required: No Review of Systems Gen: Denies fevers, night sweats, rigors, fatigue, malaise, weight loss/gain ENT: Denies congestion, throat pain, hearing loss Eyes: Denies acute visual changes CV: Denies CP, palpitations Pulmonary: Denies SOB, cough, wheezing GI: Denies N/V, diarrhea, constipation Neuro: Denies acute or unilateral weakness, acute gait impairment, headache or acute visual changes - chronic expressive dysphasia Musculoskeletal: Reports progressive LE edema Endocrine: Denies polydipsia, polyuria Skin: Denies acute rashes or ulcers Physical Exam 2 Vital Signs (Past 24 Hours): Last Vital Signs Temp 36.3 C L 09/10/18 15:00 Pulse 105 H 09/10/18 16:31 Resp 24 09/10/18 16:31 BP 93/71 L 09/10/18 16:31 Pulse Ox 100 09/10/18 16:47 Physical Exam: General: AAO x 2 - no distress - lying flat with 02 ENT: No erythema or exudates, no thrush Eyes: YAJAIRA, EOMI Head and neck: Normocephalic, atraumatic - BL JVD Chest/heart: Nontender, S1,2, R, systolic murmur present Lungs: Crackles in both lung hartmann R > L Abdomen: Nontender, nondistended, BS+ Neuro: AAO x 2, speech is impaired, no unilateral weakness or loss of sensation , coordination intact Musculoskeletal: No joint inflammation, muscle tenderness, FROM Skin: No acute rashes or ulcers Extremities: No clubbing, cyanosis - 3+ pitting edema - venous stasis hyperpigmentation Results & Data Diagnostic Findings CXR: Cardiomegaly with components of congestive heart failure. Small bilateral pleural effusions. EKG: Sinus, PACs, LVH, lat T wave inversions. No significant change. _ (1) CHF (congestive heart failure) Heart failure chronicity: acute Heart failure type: unspecified Qualified Code(s): I50.9 - Heart failure, unspecified
--- NOTE | 2018-09-10 17:47 | Emergency Department Note ---
Entered by Guy Livingston acting as a scribe for Aramis Escalante DO History of Present Illness General Chief complaint: Swelling/Edema to Extremity Stated complaint: SWOLLEN FEET, NO BOWEL MOVEMENT, VERY TIRED Source: patient History of Present Illness Onset (ago): day(s) (past several) Location: lower extremity Pain Consistency: + other (persistent) Quality: + other (leg swelling) Associated symptoms: + other (constipated); no chest pain, no cough and no shortness of breath The patient is a 72 year old male who presents to the Emergency Room with complaints of persistent swelling of the legs bilaterally for the past several days. The patient reports that he has also been constipated for the past few days. He denies any urinary symptoms, cough, runny nose, lightheadedness, weakness, chest pain, shortness of breath, or fevers. He states that he does not drink alcohol. He reports a history of CHF and heart attack, but he denies a history of blood clots. He reports that his PCP is Dr. Marshall. Home Medications Home Medications Medication Instructions Recorded Confirmed Type Unknown Daily Vitamin 1 tab PO DAILY 09/10/18 History aspirin [Aspirin Low Dose] 81 mg PO DAILY 09/10/18 09/10/18 History atorvastatin 09/10/18 History benazepril 10 mg PO QAM 09/10/18 09/10/18 History bimatoprost [Lumigan] 09/10/18 History cholecalciferol (vitamin D3) 1 cap PO QAM 09/10/18 09/10/18 History [Vitamin D3] ferrous sulfate 1 tab PO BID 09/10/18 09/10/18 History furosemide 1 tab PO DIRECTED 09/10/18 09/10/18 History levothyroxine 25 mcg PO QAM 09/10/18 09/10/18 History magnesium oxide 1 tab PO QPM 09/10/18 09/10/18 History metoprolol succinate 0.5 tab PO QPM 09/10/18 09/10/18 History pantoprazole 40 mg PO QPM 09/10/18 09/10/18 History potassium chloride [Klor-Con M20] 20 meq PO QPM 09/10/18 09/10/18 History sennosides-docusate sodium [Senna 1 tab PO QPM 09/10/18 09/10/18 History Plus] sertraline 1.5 tab PO QPM 09/10/18 09/10/18 History Allergies Allergy/AdvReac Type Severity Reaction Status Date / Time No Known Allergies Allergy Verified 09/10/18 17:18 Past Med/Surg History Medical History CAD in [place] artery HLD (hyperlipidemia) Hypertension Atrial fibrillation Surgical History H/O heart artery stent Family History Other Family history non-contributory Social History Current Living Situation: Alone Other Information That Helps Us Care for You: No Feels Safe at Home: Yes Safety Concerns: Feels Safe At This Time Smoking Status: Former smoker Do You Dip or Chew Tobacco: No Second Hand Exposure: No Tobacco Cessation Education Requested by Patient: No Hx Alcohol Use: No Hx Substance Use: No Beliefs That Will Affect Care: None Preferred Language: Macedonian Communication Ability: Effective Director Of Income Tax Required: No Review of Systems See HPI for pertinent positives & negatives. and A total of 10 systems reviewed and were otherwise negative Physical Exam Vital Signs Vital Signs - 24 hr 09/10/18 15:00 09/10/18 15:18 09/10/18 15:46 Temperature 36.3 C L Temperature Source Oral Sepsis Recent Fever Within 48 Hours No Sepsis Action Taken by Nursing No Action Required Pulse Rate 129 H 108 H Pulse Rhythm Regular Pulse Strength Normal Respiratory Rate 18 21 Respiratory Effort / Characteristics Non-Labored Spontaneous Respiratory Depth Normal Respiratory Pattern Regular Blood Pressure 86/63 L 97/72 L Blood Pressure Mean 70 80 Blood Pressure Position Lying Pulse Oximetry 94 93 95 Oxygen Delivery Method Room Air Room Air Oxygen Flow Rate 09/10/18 16:01 09/10/18 16:04 09/10/18 16:05 Temperature Temperature Source Sepsis Recent Fever Within 48 Hours Sepsis Action Taken by Nursing Pulse Rate 113 H 105 H 94 H Pulse Rhythm Pulse Strength Respiratory Rate 41 H 26 H 27 H Respiratory Effort / Characteristics Respiratory Depth Respiratory Pattern Blood Pressure 78/63 L 93/69 L 90/65 L Blood Pressure Mean 68 77 73 Blood Pressure Position Pulse Oximetry 92 94 92 Oxygen Delivery Method Oxygen Flow Rate 09/10/18 16:16 09/10/18 16:18 09/10/18 16:23 Temperature Temperature Source Sepsis Recent Fever Within 48 Hours Sepsis Action Taken by Nursing Pulse Rate 99 H 98 H 93 H Pulse Rhythm Pulse Strength Respiratory Rate 22 23 26 H Respiratory Effort / Characteristics Respiratory Depth Respiratory Pattern Blood Pressure 84/54 L 72/43 L 88/58 L Blood Pressure Mean 64 52 68 Blood Pressure Position Pulse Oximetry 93 83 L 92 Oxygen Delivery Method Oxygen Flow Rate 09/10/18 16:31 09/10/18 16:44 09/10/18 16:46 Temperature Temperature Source Sepsis Recent Fever Within 48 Hours Sepsis Action Taken by Nursing Pulse Rate 105 H 98 H Pulse Rhythm Pulse Strength Respiratory Rate 24 17 Respiratory Effort / Characteristics Respiratory Depth Respiratory Pattern Blood Pressure 93/71 L 92/68 L Blood Pressure Mean 78 76 Blood Pressure Position Pulse Oximetry 93 90 100 Oxygen Delivery Method Room Air Oxygen Flow Rate 0 09/10/18 16:47 09/10/18 17:01 09/10/18 17:05 Temperature Temperature Source Sepsis Recent Fever Within 48 Hours Sepsis Action Taken by Nursing Pulse Rate 126 H Pulse Rhythm Pulse Strength Respiratory Rate 24 Respiratory Effort / Characteristics Spontaneous Respiratory Depth Normal Respiratory Pattern Regular Apnea Blood Pressure 101/76 Blood Pressure Mean 84 Blood Pressure Position Pulse Oximetry 100 100 Oxygen Delivery Method Nasal Cannula Nasal Cannula Oxygen Flow Rate 2 2 09/10/18 17:16 09/10/18 17:31 Temperature Temperature Source Sepsis Recent Fever Within 48 Hours Sepsis Action Taken by Nursing Pulse Rate 94 H 105 H Pulse Rhythm Pulse Strength Respiratory Rate 20 Respiratory Effort / Characteristics Respiratory Depth Respiratory Pattern Blood Pressure 93/75 L 91/66 L Blood Pressure Mean 81 74 Blood Pressure Position Pulse Oximetry 100 91 Oxygen Delivery Method Oxygen Flow Rate GENERAL: Sitting up in bed, alert, chronically ill and disheveled appearing, no distress EYE EXAM: normal conjunctiva. OROPHARYNX: no exudate, no erythema, lips, buccal mucosa, and tongue normal and mucous membranes are moist NECK: supple, no nuchal rigidity, no adenopathy, non-tender, positive JVD. LUNGS: Diminished breath sounds at the bases. Normal chest wall mechanics HEART: Tachycardia with systolic ejection murmur. ABDOMEN: abdomen soft, non-tender, normo-active bowel, sounds, no masses, no rebound or guarding. BACK: Back is symmetrical on inspection and there is no deformity, no midline tenderness, no CVA tenderness. SKIN: no rashes and no bruising UPPER EXTREMITIES: upper extremities are grossly normal. LOWER EXTREMITIES: Bilateral pitting edema. NEURO EXAM: Normal sensorium, cranial nerves II-XII grossly intact, normal speech, no gross weakness of arms, no gross weakness of legs. Gross sensation intact. Course ED COURSE: Vital signs were reviewed and showed hypotension and tachycardia The patients medical record was reviewed The above diagnostic studies were performed and reviewed. ED treatments and interventions as stated above. 1507: The patient was evaluated in room A4B. A complete history and physical examination was performed. 1630: I performed a bedside echo that showed poor LV contraction. 1631: I discussed the patient's case Dr. Pierre Salas Cardiology and was provided with recommendations. 1700: I consulted Dr. Lottie Carney [facility] Hospitalist. He will reevaluate the patient for hospitalization. Based on the patients age, coexisting illnesses, exam and lab findings the decision to treat as an inpatient was made. The patient remained stable while under my care. The patient will be evaluated for further management. Consultations Consultation #1: I discussed the patient's case Dr. Pierre Salas Cardiology and was provided with recommendations. Time: 16:31 Consultation #2: I consulted Dr. Lottie Carney [facility] Hospitalist. He will reevaluate the patient for hospitalization. Time: 17:00 Administered Medications Discontinued Medications Sodium Chloride (Nss) 500 mls @ 999 mls/hr IV .Q31M SOHAN Stop: 09/10/18 16:00 Last Infusion: 09/10/18 16:25 Dose: 0 mls/hr Admin: 09/10/18 15:51 Dose: 999 mls/hr Medical Decision Making Differential Diagnosis Differential diagnoses includes but is not limited to pneumonia, bronchitis, COPD/Asthma exacerbation, pneumothorax, pulmonary embolism, congestive heart failure, acute coronary syndrome Medical Records Attestation: I reviewed the patient's medical records. Home Medications Current Medication List: was personally reviewed by me Laboratory Data Attestation: I reviewed the patient's lab results. Result diagrams: 09/10/18 15:45 09/10/18 15:45 Lab Results 09/10/18 09/10/18 09/10/18 Range/Units 15:45 15:45 15:45 WBC 5.39 (4.8-10.8) K/uL RBC 4.44 L (4.7-6.1) M/uL Hgb 12.4 L (14.0-18.0) g/dL Hct 39.5 L (42-52) % MCV 89.0 (80-100) fL MCH 27.9 (25-34) pg MCHC 31.4 L (32-36) g/dL RDW Std Deviation 54.5 H (36.4-46.3) fL RDW Coeff of Jessica 16.5 H (11.5-14.5) % Plt Count 167 (130-400) K/uL MPV 11.2 H (7.4-10.4) fL Immature Gran % (Auto) 0.2 % Neut % (Auto) 79.8 % Lymph % (Auto) 8.9 % [place] % (Auto) 7.2 % Eos % (Auto) 3.3 % Baso % (Auto) 0.6 % Immature Gran # (Auto) 0.01 (0.00-0.02) K/uL Neut # (Auto) 4.30 (1.4-6.5) K/uL Lymph # (Auto) 0.48 L (1.2-3.4) K/uL [place] # (Auto) 0.39 (0.11-0.59) K/uL Eos # (Auto) 0.18 (0-0.5) K/uL Baso # (Auto) 0.03 (0-0.2) K/uL PT 15.5 H (9.0-12.0) Seconds INR 1.6 H (0.9-1.1) Sodium 132 L (136-145) mmol/L Potassium 4.0 (3.5-5.1) mmol/L Chloride 92 L (98-107) mmol/L Carbon Dioxide 37 H (21-32) mmol/L Anion Gap 3.0 (3-11) BUN 32 H (7-18) mg/dl Creatinine 1.20 (0.6-1.4) mg/dl Est Cr Clr Drug Dosing 52.2 ml/min Est GFR ( Amer) 68.6 Est GFR (Non-Af Amer) 59.2 BUN/Creatinine Ratio 26.6 H (10-20) Glucose 86 (70-99) mg/dl Calcium 8.7 (8.5-10.1) mg/dl Total Bilirubin 0.6 (0.2-1) mg/dl AST 33 (15-37) U/L ALT 32 (12-78) U/L Alkaline Phosphatase 176 H (45-117) U/L Troponin I 0.030 (0-0.045) ng/ml NT-Pro-B Natriuret Pep 72582 H (0-900) pg/ml Total Protein 6.6 (6.4-8.2) gm/dl Albumin 2.8 L (3.4-5.0) gm/dl Globulin 3.8 (2.5-4.0) gm/dl Albumin/Globulin Ratio 0.7 L (0.9-2) Lipase 136 (73-393) U/L Imaging Data Radiologist's Impression: Radiology results as stated below per my review and the radiologist's interpretation: XR chest 1V portable CLINICAL HISTORY: Chest Pain dyspnea COMPARISON STUDY: 10/22/2017 FINDINGS: Moderate cardiomegaly. Small bilateral pleural effusions. Prominent pulmonary vasculature suggesting component of congestive heart failure IMPRESSION: Cardiomegaly with components of congestive heart failure. Small bilateral pleural effusions. The above report was generated using voice recognition software. It may contain grammatical, syntax or spelling errors. Electronically signed by: John Linder M.D. 09/10/2018 3:33 PM ECG Data Attestation: I personally reviewed and interpreted this ECG as follows: Indication: other (leg swelling) Rate (beats per minute): 106 Rhythm: atrial fibrillation Findings: + PVC and + ST depression (in lateral and inferior leads) Comparison ECG Date: from (10/14/17) Change: the following changes noted (Lateral ST depressions are worse than prior ; inferior ST depressions are improved from prior) Blood Pressure Blood Pressure Findings: Low blood pressure Blood Pressure Disposition: further management by hospitalist VAL Atkins Patient is a 72-year-old male who presents the ER with a history of dilated cardiomyopathy, CAD, CHF and A. fib presents the ER for weakness and swelling in the legs. Upon arrival he is found to be hypotensive and tachycardic. Systolic blood pressures were in the 70s-80s initially. He has no belly pain but does also admit to having some trouble with bowel movements. On exam patient does have some JVD and pitting edema in the bilateral lower extremities. Lungs were clear. Patient was given 2 250 boluses of normal saline systolic blood pressures improved to the low 90s. Heart rate did trend down to the low 100s. Labs were obtained and showed no significant leukocytosis or anemia. INR was 1.6. BMP was unremarkable and LFTs were normal. Troponin was detectable but not positive. BNP was significantly elevated at 23,000. Lipase was normal. Bedside ultrasound by myself shows a dilated LV with poor LV contraction. Discussed case with cardiology since blood pressure patient is stable at this time will continue current management. We will not diurese at this time. If pressor is needed would favor dopamine or Levophed as opposed to dobutamine secondary to low blood pressure per Dr. Her at this time. Patient was updated bedside. He is currently a full code. Discussed case with the hospitalist. Patient will be admitted for CHF and cardiogenic shock secondary likely to poor EF. Impression & Plan CHF (congestive heart failure), Cardiogenic shock Discharge Plan Visit Data Chief Complaint: Swelling/Edema to Extremity Stated Complaint: SWOLLEN FEET, NO BOWEL MOVEMENT, VERY TIRED ED Provider: Aramis Escalante Discharge Problem: CHF (congestive heart failure), Cardiogenic shock Patient Disposition: Being Evaluated by Hospitalist Forms Stand Alone Forms: My [facility] Prescriptions Prescriptions: No Action furosemide 40 mg tablet 1 tab PO DIRECTED RF: 0 sennosides-docusate sodium [Senna Plus] 8.6-50 mg tablet 1 tab PO QPM RF: 0 levothyroxine 25 mcg tablet 25 mcg PO QAM RF: 0 potassium chloride [Klor-Con M20] 20 mEq tablet,ER particles/crystals 20 meq PO QPM RF: 0 magnesium oxide 400 mg (241.3 mg magnesium) tablet 1 tab PO QPM RF: 0 pantoprazole 40 mg tablet,delayed release (DR/EC) 40 mg PO QPM RF: 0 ferrous sulfate 325 mg (65 mg iron) tablet 1 tab PO BID RF: 0 metoprolol succinate 25 mg tablet extended release 24 hr 0.5 tab PO QPM RF: 0 benazepril 10 mg tablet 10 mg PO QAM RF: 0 sertraline 50 mg tablet 1.5 tab PO QPM RF: 0 cholecalciferol (vitamin D3) [Vitamin D3] 2,000 unit capsule 1 cap PO QAM RF: 0 atorvastatin 80 mg tablet RF: 0 aspirin [Aspirin Low Dose] 81 mg Tablet,Delayed Release (Dr/Ec) 81 mg PO DAILY RF: 0 bimatoprost [Lumigan] 0.01 % drops RF: 0 Unknown Daily Vitamin 1 tab PO DAILY RF: 0 Referrals Referrals: Alex Marshall MD [Primary Care Provider] - The scribe's documentation has been prepared under my direction and personally reviewed by me in its entirety. I confirm that the note above accurately reflects all work, treatment, procedures, and medical decision making performed by me.
[2018-09-10] MEDS ORDERED: ASPIRIN CHEW 324 MG PO STA (17:51)
[2018-09-10] MEDS ORDERED: INFLUENZA ADMINISTRATION CHARGE ONE (19:45)
[2018-09-10] MEDS ORDERED: INFLUENZA VACCINE HIGH DOSE 65+ 0.5 ML SYR IM ONE (19:45)
[2018-09-10] MEDS ORDERED: ONDANSETRON INJ 2 MG/ML 2 ML VIAL IV PRN (20:23)
[2018-09-10] MEDS ORDERED: FUROSEMIDE 40 MG/4 ML VIAL IV SCH (20:23)
[2018-09-10] MEDS ORDERED: FUROSEMIDE 40 MG in SYRINGE 0 ML IV SCH (21:00)
[2018-09-10] MEDS: METOPROLOL SUCC 25MG EXT REL TAB PO SCH (21:31)
[2018-09-10] MEDS: MAGNESIUM OXIDE 400 MG TAB PO SCH (21:31)
[2018-09-10] MEDS: SERTRALINE HCL 50 MG TABLET PO SCH (21:31)
[2018-09-10] MEDS: POTASSIUM CHLORIDE 20 MEQ TABCR PO SCH (21:32)
[2018-09-10] MEDS: DOCUSATE SODIUM/SENNA 50/8.6MG TAB PO SCH (21:32)
[2018-09-10] MEDS: ATORVASTATIN 40 MG TAB PO SCH (21:32)
[2018-09-10] MEDS: PANTOprazole 40 MG TAB PO SCH (21:32)
[2018-09-10] MEDS: HEPARIN SOD 5,000 UNIT/0.5 ML VIAL SQ SCH (22:57)
[2018-09-11] MEDS: HEPARIN SOD 5,000 UNIT/0.5 ML VIAL SQ SCH (06:12)
[2018-09-11 06:17] LABS: Basophils # (auto) 0.02 K/uL (0-0.2); Basophils % (auto) 0.3 %; Eosinophils # (auto) 0.18 K/uL (0-0.5); Eosinophils % (auto) 2.8 %; Hematocrit (blood only) 38.3 % (42-52); Hemoglobin 12.1 g/dL (14.0-18.0); Immature Granulocytes # (auto) 0.01 K/uL (0.00-0.02); Immature Granulocytes % (auto) 0.2 %; Lymphocytes # (auto) 0.39 K/uL (1.2-3.4); Mean Corpuscular Hgb Conc 31.6 g/dL (32-36); Mean Corpuscular Volume 88.9 fL (80-100); Mean Platelet Volume 10.8 fL (7.4-10.4); Monocytes # (auto) 0.57 K/uL (0.11-0.59); Monocytes % (auto) 8.7 %; Neutrophils # (auto) 5.36 K/uL (1.4-6.5); Platelet Count 147 K/uL (130-400); RDW Coefficient of Variation 16.7 % (11.5-14.5); RDW Standard Deviation 54.5 fL (36.4-46.3); Red Blood Count 4.31 M/uL (4.7-6.1); White Blood Count 6.53 K/uL (4.8-10.8)
[2018-09-11] MEDS ORDERED: LEVOTHYROXINE SODIUM 25 MCG TABLET PO SCH (06:30)
[2018-09-11 06:54] LABS: BUN Creatinine Ratio 28.1 (10-20); Calcium 8.7 mg/dl (8.5-10.1); Creatinine Clr Calc Pharmacy 59.6 ml/min; Est GFR (African American) 78.8; Magnesium 1.6 mg/dl (1.8-2.4); Potassium 4.1 mmol/L (3.5-5.1)
[2018-09-11] MEDS: ASPIRIN 81 MG ECTAB PO SCH (08:38)
[2018-09-11] MEDS: FUROSEMIDE 20 MG in SYRINGE 0 ML IV SCH ×2 (09:55→21:02)
--- NOTE | 2018-09-11 10:10 | Cardiology Consultation ---
Date of Consultation September 11, 2018 Assessment & Plan (1) CHF (congestive heart failure): Mr. Rizo is a 72yo M with PMHx of CAD s/p PCI 03/2018, CHF prior EF 35% , , MR, pAfib not on anticoagulation 2/2 severe GIB and Brunners hyperplasia, HTN, HLD, and CVA with residual expressive aphasia who presented to the ED with one day of increasing bilateral lower leg edema and several days of slowly increasing shortness of breathing on a background of several weeks of slowly increasing fatigue and global weakness. Acute on Chronic CHF with reduced EF - Interval decrease from last ECHO with LVEF ~35% to <30% - Clinically improved with 1.8L UOP in response to lasix 40, although continues to have some leg edema and JVD with 2L O2 NC requirement with no home O2. - Continue to diurese with lasix 20mg BID17, follow UOP & daily weights - Medically optimize with diuresis as above, cardiac cath as noted below Mod-Severe Aortic Stenosis - Echo aortic flow velocityis <4m/s, but this may be underrepresented given his poor contractility and LV function. - Progressively symptomatic fatigue/weakness acutely worsened by CHF exacerbation as above - Given his medical complexity he is higher risk candidate for open valve surgery, but may be a good TAVR candidate. Would require a cath to assess for ischemia would may also be contributing to his decreased LV as above - Continue to optimize fluid status, plan for cardiac cath and pressure gradient measurement with possible dobutamine augmentation during this admission pAfib - Not on anticoagulation due to histoyr of severe GI bleed with Brunners hyperplasia - High stroke risk ([id number] ~9.7%) - Metoprolol held in setting of hypotension, recommend restarting as soon as his BP improves. - If BP is not improving with diuresis/medical management recommend digoxin 0.125mg; Cr is wnl Supervising Physician Co-Signing Physician Notes Dr. Mata Addendum: Agree with excellent assessment and plan as outlined by Dr. Nino. Patient well know to me from outpatient setting and prior hospitalizations. Readmitted with heart failure in the setting of relative hypotension. Echo reviewed and showed notable decline in LV systolic function. Aortic stenosis also now appears to be severe. Decision to proceed with cardiac catheterization to reassess coronary anatomy and further clarify severity. Found to have widely patent prior stents. JOSE <0.6, MG 33. Dobutamine augmentation suggests some degree of pseudostenosis but still feel aortic stenosis is now severe. For now recommend continued gentle diuresis, HF regimen optimization. Will consider History of Present Illness Attending Physician: Carmel Cantu MD History of Present Illness Mr. Rizo is a 72yo M with PMHx of CAD s/p PCI 03/2018, CHF EF 35%, , MR, pAfib not on anticoagulation 2/2 severe GIB and Brunners hyperplasia, HTN, HLD, and CVA with residual expressive aphasia who presented to the ED with one day of increasing bilateral lower leg edema and several days of slowly increasing shortness of breathing on a background of several weeks of slowly increasing fatigue and global weakness. Hx of CAD s/p diagonal, RVA, and PDA DEZ placement in 03/2018. Echo at the time showed CHF with EF 35% and mod-severe . Today he reports he feels better than last night. Reports his breathing is a little better but is still on 2L NC of oxygen with no home oxygen requirement previously. Sleeps on his side with 1-2 pillows at home. Denies any chest pain, chest pressure, palpitations. Feels the swelling in his legs has greatly improved, although it still increased from his normal baseline. Denies fever, chills, sweats, abdominal pain, nausea, vomiting, diarrhea, constipation. Has a nosebleed at time of visit from 'dry air with oxygen', bleeding has stopped at time of exam and lasted for ~15 minutes. No focal weakness, endorses global fatigue/weakness. No vertigo. Meds: Takes ASA, Atorv 40, Benzapril 10 QD, lasix 40 QD, synthroid 25mcg, metoprolol 12.5mg (1/2 25mg tab) QD at home [employer]SM[employer]. He reports he has not been taking his synthroid due to pill burden. Also notes he has been taking his fluid pill which is a 'half pill', suspect he may be confusing this with his metoprolol dose, actual compliance is unclear. Social: Tobacco: Former [id number] cigarette use, none in 5-6 years EtoH: None Recreational Drug: None Allergies: None Living: Lives at his home in [place], [place] alone; his son in law and daughter live nearby and help him at home. Allergies Allergy/AdvReac Type Severity Reaction Status Date / Time No Known Allergies Allergy Verified 09/10/18 17:18 Home Medications Home Medications Medication Instructions Recorded Confirmed Type Unknown Daily Vitamin 1 tab PO DAILY 09/10/18 History aspirin [Aspirin Low Dose] 81 mg PO DAILY 09/10/18 09/10/18 History atorvastatin 09/10/18 History benazepril 10 mg PO QAM 09/10/18 09/10/18 History bimatoprost [Lumigan] 09/10/18 History cholecalciferol (vitamin D3) 1 cap PO QAM 09/10/18 09/10/18 History [Vitamin D3] ferrous sulfate 1 tab PO BID 09/10/18 09/10/18 History furosemide 1 tab PO DIRECTED 09/10/18 09/10/18 History levothyroxine 25 mcg PO QAM 09/10/18 09/10/18 History magnesium oxide 1 tab PO QPM 09/10/18 09/10/18 History metoprolol succinate 0.5 tab PO QPM 09/10/18 09/10/18 History pantoprazole 40 mg PO QPM 09/10/18 09/10/18 History potassium chloride [Klor-Con M20] 20 meq PO QPM 09/10/18 09/10/18 History sennosides-docusate sodium [Senna 1 tab PO QPM 09/10/18 09/10/18 History Plus] sertraline 1.5 tab PO QPM 09/10/18 09/10/18 History Patient History Medical History CAD in [place] artery HLD (hyperlipidemia) Hypertension Atrial fibrillation Surgical History H/O heart artery stent Family History Other Family history non-contributory Social History Current Living Situation: Alone Other Information That Helps Us Care for You: No Feels Safe at Home: Yes Safety Concerns: Feels Safe At This Time Smoking Status: Former smoker Do You Dip or Chew Tobacco: No Second Hand Exposure: No Tobacco Cessation Education Requested by Patient: No Hx Alcohol Use: No Hx Substance Use: No Beliefs That Will Affect Care: None Preferred Language: Gibraltarian Communication Ability: Effective Assurance Specialist Required: No Review of Systems See HPI Physical Exam 2 Vital Signs (Past 24 Hours): Last Vital Signs Temp 36.3 C L 09/11/18 07:09 Pulse 103 H 09/11/18 07:09 Resp 21 09/11/18 07:09 BP 93/54 L 09/11/18 07:09 Pulse Ox 90 09/11/18 07:09 Physical Exam: General: A&Ox3. NAD. Cooperative. Expressive aphasia present. HEENT: Atraumatic, normocephalic. Pulm: Poor air movement, no overt rales/crackles. Mild end expiratory wheeze on forced expiration in RUL. Symmetrical chest rise. No increased work of breathing. No respiratory distress. On 2LNC. Cardiac: Heart sounds difficulty to appreciate, soft systolic murmer present. - rubs/gallops. JVD present to angle of the mandible. No carotid bruits appreciated. Extremity: 2+ pitting edema to the mid calf present. Resident Activity Tracking Resident Involvement: Resident Care Provided Care Provided: Adult [facility] _ (1) CHF (congestive heart failure) Heart failure chronicity: acute Heart failure type: unspecified Qualified Code(s): I50.9 - Heart failure, unspecified
--- NOTE | 2018-09-11 10:58 | Hospitalist Progress Note ---
Date of Service September 11, 2018 Assessment & Plan (1) Acute on chronic combined systolic and diastolic congestive heart failure due to valvular disease: This patient is a 72 y/o M hx CAD, chronic combined systolic and diastolic CHF with a previous LVEF of 35%, paroxysmal AF, moderate to severe , pulmonary hypertension, HTN, HLD, hypothyroid, CVA with expressive dysphasia. The pt is a poor historian but states that he presented to the ER due to edema on his lower extremities. On arrival it was noted that he was hypotensive and hypoxic although relatively asymptomatic. He denies CP, SOB, cough or fevers. Initial evaluation including imaging and clinical exam is consistent with CHF exacerbation. His systolic blood pressure has been 75-95 systolic since admission CHF exacerbation likely secondary to severe aortic stenosis now present on echocardiogram. EF is severely reduced at 20-25% Discuss case with cardiology - there is some question of cardiogenic shock due to his low BP with volume overload, however, he is presently asymptomatic with-continue gentle diuresis with Lasix 20 mg IV twice daily and monitor his BP.-Cardiology does not recommend pressors right now -Continue strict I/O and daily weights, added low-sodium diet -Continue to hold his ACEi and B salbador with parameters for hypotension (2) Hypertension: With significantly low blood pressures at this time Can give metoprolol with parameters for holding for hypotension -Holding home JACQUE inhibitor of benazepril (3) CAD (coronary artery disease): Status post stent to the RCA in the past and LAD Going for cardiac catheterization today in preparation for evaluation for TAVR as per my discussion with cardiology -Continue aspirin, atorvastatin, beta-salbador as tolerated No evidence of ischemia or chest pain at this time (4) Atrial fibrillation: Paroxysmal atrial fibrillation, with rapid rates at times today, was in normal sinus rhythm yesterday on admission -Continue beta-salbador as tolerated Cannot tolerate anticoagulation due to history of significant GI bleeding in the past (5) Aortic stenosis: Now with severe aortic stenosis Needs evaluation for valve replacement as an outpatient For cardiac catheterization today -Try to avoid hypotension (6) Acute respiratory failure with hypoxia: Secondary to acute CHF Diuresing as above -Continue supplemental oxygen to keep pulse ox greater than 90% (7) Hypothyroidism: TSH significantly elevated at 27-patient has not been compliant with taking his medication at home he admits -Increase levothyroxine to 50 micro grams now -We recommend checking TFTs in 4-6 weeks (8) Pulmonary hypertension: With elevated pressures seen on previous echo -For cardiac catheterization today -Diuresis as above, supplemental O2 as above (9) History of CVA (cerebrovascular accident): With history of residual expressive aphasia -Continue aspirin With paroxysmal atrial fibrillation-unable to anticoagulate as above due to history of severe GI bleed (10) History of GI bleed: 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 His daughter reports his leg swelling is much improved since admission yesterday. Patient overall has no complaints. I discussed the case with cardiology at the bedside. Plan for cardiac catheterization today Blood pressures remain low but he is asymptomatic, no lightheadedness. Telemetry with atrial fibrillation with rates in the 90s-130s, was in normal sinus rhythm yesterday Review of Systems All systems reviewed & are unremarkable except as noted in HPI & below Physical Exam 2 Vital Signs (Past 24 Hours): Last Vital Signs Temp 36.3 C L 09/11/18 07:09 Pulse 82 09/11/18 08:00 Resp 21 09/11/18 07:09 BP 93/54 L 09/11/18 07:09 Pulse Ox 90 09/11/18 07:09 Constitutional: WD/WN, vitals as above Eyes: PERRL, conjunctivae normal, anicteric sclerae ENMT: external ear and nose normal, oropharynx normal Neck: trachea midline, no thyromegaly Respiratory: normal respiratory effort Auscultation: + crackles (Bibasilar ) Cardiovascular: Rate/Rhythm: + tachycardic; + abnormal rhythm (Irregularly irregular) Extremities: + edema (2-3+ pitting edema of the bilateral legs to the knees) Gastrointestinal (Abdomen): normal bowel sounds, soft, nontender, no hepatosplenomegaly Musculoskeletal: Extremities: extremities normal to inspection; no cyanosis and no clubbing Skin: + erythema (Mild erythema in the anterior tibia bilaterally that appears chronic) Neurologic: moves all extremities and awake; no focal motor deficits Psychiatric: Orientation: alert, oriented to person, oriented to place and cooperative Results & Data Laboratory Results 09/11/18 09/11/18 Range/Units 05:57 05:57 Sodium 137 (136-145) mmol/L Potassium 4.1 (3.5-5.1) mmol/L Chloride 94 L (98-107) mmol/L Carbon Dioxide 38 H (21-32) mmol/L Anion Gap 5.0 (3-11) BUN 30 H (7-18) mg/dl Creatinine 1.07 (0.6-1.4) mg/dl Est Cr Clr Drug Dosing 59.6 ml/min Est GFR ( Amer) 78.8 Est GFR (Non-Af Amer) 68.0 BUN/Creatinine Ratio 28.1 H (10-20) Glucose 87 (70-99) mg/dl Calcium 8.7 (8.5-10.1) mg/dl Magnesium 1.6 L (1.8-2.4) mg/dl TSH 27.600 H (0.300-4.500) uIu/ml _ (1) CAD (coronary artery disease) Coronary Disease-Associated Artery/Lesion type: [place] artery [place] vs. transplanted heart: [place] heart Associated angina: without angina Qualified Code(s): I25.10 - Atherosclerotic heart disease of [place] coronary artery without angina pectoris (2) Aortic stenosis Cardiac valve disease etiology: etiology unspecified Qualified Code(s): I35.0 - Nonrheumatic aortic (valve) stenosis (3) Atrial fibrillation Atrial fibrillation type: paroxysmal Qualified Code(s): I48.0 - Paroxysmal atrial fibrillation (4) Hypothyroidism Hypothyroidism type: acquired Qualified Code(s): E03.9 - Hypothyroidism, unspecified
[2018-09-11] MEDS: MAGNESIUM SULFATE / D5W 1 GM/100 ML BAG IV SCH ×2 (12:23→15:12)
[2018-09-11] MEDS ORDERED: MIDAZOLAM HCL 1 MG/ML 2ML VIAL ONE (12:44)
[2018-09-11] MEDS ORDERED: fentaNYL citrate 100 MCG/2 ML VIAL ONE (12:44)
[2018-09-11] MEDS ORDERED: NiCARDipine HCL INJ 2.5 MG/ML 10 ML AMP ONE (12:44)
[2018-09-11] MEDS ORDERED: NITROGLYCERIN/D5W 100MCG/ML 20ML SYR ONE (12:44)
[2018-09-11] MEDS ORDERED: HEPARIN (PORCINE) 1000 UNIT/ML 10 ML (CATH LAB USE ONLY) ONE (12:44)
[2018-09-11] MEDS ORDERED: DOBUTamine 500MG / 250ML D5W (CATH LAB USE ONLY) ONE (13:49)
[2018-09-11] MEDS ORDERED: METOPROLOL TARTRATE 1 MG/ML VIAL IV ONE (14:29)
[2018-09-11] MEDS ORDERED: ADENOSINE IV SOLN 3 MG/ML 2 ML VIAL IV ONE (14:31)
--- NOTE | 2018-09-11 14:40 | Pre Anesthesia Assessment ---
Date of Service September 11, 2018 Pre Sedation Assessment Vital Signs Temp Pulse Pulse Resp BP BP BP 09/11/18 14:38 140 H 09/11/18 12:02 36.5 C 82 18 09/11/18 08:00 82 09/11/18 07:09 36.3 C L 103 H 21 93/54 L 09/11/18 03:05 35.8 C L 84 21 95/62 L 09/10/18 23:54 35.5 C L 85 22 90/56 L 09/10/18 18:55 82 95/63 L 09/10/18 18:51 95 H 81/61 L 09/10/18 18:46 106 H 83/67 L 09/10/18 18:31 103 H 88/70 L 09/10/18 18:16 114 H 91/68 L 09/10/18 18:01 90/73 L 09/10/18 17:46 95 H 92/62 L 09/10/18 17:31 105 H 91/66 L 09/10/18 17:16 94 H 20 93/75 L 09/10/18 17:01 126 H 24 101/76 09/10/18 16:47 09/10/18 16:46 98 H 17 92/68 L 09/10/18 16:44 09/10/18 16:31 105 H 24 93/71 L 09/10/18 16:23 93 H 26 H 88/58 L 09/10/18 16:18 98 H 23 72/43 L 09/10/18 16:16 99 H 22 84/54 L 09/10/18 16:05 94 H 27 H 90/65 L 09/10/18 16:04 105 H 26 H 93/69 L 09/10/18 16:01 113 H 41 H 78/63 L 09/10/18 15:46 108 H 21 97/72 L 09/10/18 15:18 09/10/18 15:00 36.3 C L 129 H 18 86/63 L Pulse Ox 09/11/18 14:38 09/11/18 12:02 97 09/11/18 08:00 09/11/18 07:09 90 09/11/18 03:05 97 09/10/18 23:54 99 09/10/18 18:55 99 09/10/18 18:51 98 09/10/18 18:46 99 09/10/18 18:31 100 09/10/18 18:16 98 09/10/18 18:01 100 09/10/18 17:46 100 09/10/18 17:31 91 09/10/18 17:16 100 09/10/18 17:01 100 09/10/18 16:47 100 09/10/18 16:46 100 09/10/18 16:44 90 09/10/18 16:31 93 09/10/18 16:23 92 09/10/18 16:18 83 L 09/10/18 16:16 93 09/10/18 16:05 92 09/10/18 16:04 94 09/10/18 16:01 92 09/10/18 15:46 95 09/10/18 15:18 93 09/10/18 15:00 94 Cardiovascular no regular rhythm Respiratory normal respiratory effort, lungs clear to auscultation Pre-Sedation Airway Assessment Smoking Status: Former smoker Hx Sleep Apnea: No Hx Difficult Intubation: No Short, Thick Neck: No Thyromental Distance: > or= 3.5 Finger Breadths Oral Cavity: + Dentures Mallampati Class: II ASA: ASA3 NPO Status Date of Last Intake of Fluids: 09/11/18 Time of Last Intake of Fluids: 07:00 Date of Last Intake of Solid Food: 09/11/18 Time of Last Intake of Solid Foods: 07:00 Procedure Planning Contraindications for Sedation: none Current Medications Reviewed: Yes Notes The planned sedation has been discussed with the patient. Informed Consent was obtained. I have identified the patient, determined the appropriateness of sedation and have assessed the patient immediately prior to the procedure. All medicine(s) and interventions are by my order.
--- NOTE | 2018-09-11 14:41 | Post Anesthesia Assessment ---
Date of Service September 11, 2018 Post Sedation Assessment Vital Signs Temp Pulse Pulse Resp BP BP BP 09/11/18 14:38 140 H 09/11/18 12:02 36.5 C 82 18 09/11/18 08:00 82 09/11/18 07:09 36.3 C L 103 H 21 93/54 L 09/11/18 03:05 35.8 C L 84 21 95/62 L 09/10/18 23:54 35.5 C L 85 22 90/56 L 09/10/18 18:55 82 95/63 L 09/10/18 18:51 95 H 81/61 L 09/10/18 18:46 106 H 83/67 L 09/10/18 18:31 103 H 88/70 L 09/10/18 18:16 114 H 91/68 L 09/10/18 18:01 90/73 L 09/10/18 17:46 95 H 92/62 L 09/10/18 17:31 105 H 91/66 L 09/10/18 17:16 94 H 20 93/75 L 09/10/18 17:01 126 H 24 101/76 09/10/18 16:47 09/10/18 16:46 98 H 17 92/68 L 09/10/18 16:44 09/10/18 16:31 105 H 24 93/71 L 09/10/18 16:23 93 H 26 H 88/58 L 09/10/18 16:18 98 H 23 72/43 L 09/10/18 16:16 99 H 22 84/54 L 09/10/18 16:05 94 H 27 H 90/65 L 09/10/18 16:04 105 H 26 H 93/69 L 09/10/18 16:01 113 H 41 H 78/63 L 09/10/18 15:46 108 H 21 97/72 L 09/10/18 15:18 09/10/18 15:00 36.3 C L 129 H 18 86/63 L Pulse Ox 09/11/18 14:38 09/11/18 12:02 97 09/11/18 08:00 09/11/18 07:09 90 09/11/18 03:05 97 09/10/18 23:54 99 09/10/18 18:55 99 09/10/18 18:51 98 09/10/18 18:46 99 09/10/18 18:31 100 09/10/18 18:16 98 09/10/18 18:01 100 09/10/18 17:46 100 09/10/18 17:31 91 09/10/18 17:16 100 09/10/18 17:01 100 09/10/18 16:47 100 09/10/18 16:46 100 09/10/18 16:44 90 09/10/18 16:31 93 09/10/18 16:23 92 09/10/18 16:18 83 L 09/10/18 16:16 93 09/10/18 16:05 92 09/10/18 16:04 94 09/10/18 16:01 92 09/10/18 15:46 95 09/10/18 15:18 93 09/10/18 15:00 94 Recovery Score Activity: Moves 4 extremities Respiration: Deep Breath/Cough Circulation: +/-20% PreAnes Value Consciousness: Fully Awake Oxygen Saturation: O2 needed for >90% Discharge Sedation Level of Care: Fast Track Phase II Post Sedation Plan On clinical assessment, the patient appears to have tolerated the sedation without complications. Patient is recovering as anticipated. Patient will continue to be monitored by nursing and may be discharged when sedation discharge criteria are met per below protocol. Upon Completions of procedure and additional 15 minutes continue every 5 minute vital signs and the P.A.R. score; then discharge to a Phase I or Fast Track to Phase II per the following guidelines: * Discharge Patient to appropriate Phase II area if PAR is 8 or greater or return to pre- procedure baseline. The post - procedure orders will be as directed. * If PAR score is less than 8 or not return to pre-procedure baseline then patient will follow Phase I monitoring till PAR is reached for Phase II. The Phase I may be done in procedure room or may call to secure a Phase I area. * If naloxone or flumazenil are used for reversal, hold in Phase I for continued monitoring from when last reversal dose was given for a minimum of 60 minutes or longer pending the nurse and/or physician discretion of patient condition before discharge to Phase II. Please call the Sedation Physician to re-evaluate and complete post-note for discharge to Phase II area. Do NOT discharge from procedure sedation or Phase 1 until post- sedation evaluation note is complete by procedure /sedation MD Sedation Discharge Instructions to be given to the patient at discharge to home.
--- NOTE | 2018-09-11 14:47 | Cardiac Catheterization ---
Cardiac Cath Procedure Full Procedure Date September 11, 2018 Pre-Procedure Diagnosis Pre-Procedure Diagnosis: Valvular Disease and Cardiomyopathy AUC Score AUC Score: 7 Post-Procedure Diagnosis Post-Procedure Diagnosis: Moderate CAD, Decreased LV Systolic Function and Elevated Intracardiac Pressures Procedure(s) Performed Procedure(s) Performed: Coronary Angiography, Left Heart Cath and Right Heart Cath Mems Engineer Willem Mata MD Stock Manager(s) Mj Estimated Blood Loss Estimated Blood Loss: 10 Medication(s) Medication(s): Fentanyl, Heparin, Lidocaine 1%, Nicardipine, Nitroglycerin and Versed Medication(s): Dobutamine Summary of Findings Indication: Ischemic cardiomyopathy, aortic stenosis Access: 6 [place] right radial artery, 6 [place] antecubital vein Catheters: [place], [place]-1, [place], 6 [place] Findings: LM -large caliber, long, luminal irregularities LAD -large caliber vessel, 20% proximal disease, luminal irregularities distally as wraps around apex. Large caliber first diagonal with 40% stenosis just prior to previous stent. Proximal stent widely patent. Circumflex -chronically occluded after first OM. RCA -large caliber, dominant, proximal luminal irregularities, aneurysmal in mid segment, widely patent distal stent with 30% in-stent restenosis. Widely patent PDA mid segment stent, and PLB's Baseline hemodynamics RA 4 RV 53/7 PA 51/18/35 PAWP 21 LV 17 PaSat 69% AoSat 99% Thermo CO/CI 3.9/2.1, stroke volume index index 27.7 [place] CO/CI 4.7/2.5 PVR 2.8 Wood units Aortic valve mean gradient 33.2, aortic valve area of 0.52, aortic valve area index 0.28 On dobutamine 20 PA sat 72% AO sat 99% Espinoza CO/CI 5.8/2.8 Aortic valve mean gradient 31.7, JOSE 0.78, aortic valve area index 0.42 Arterial Closure: TR band Summary: 1. Widely patent prior RCA, PDA, diagonal stents. -Small circumflex again shown to be chronically occluded 2. Mildly elevated left-sided filling pressures. Borderline cardiac output 3. Mild to moderate pulmonary hypertension 4. Severe aortic stenosis (mean gradient 33, JOSE 0.52)increased JOSE with dobutamine suggests component of pseudo-stenosis due to LV dysfunction Recommendations: Continue gentle diuresis Guideline directed medical therapy as blood pressure allows. Referral for TAVR evaluation as an outpatient Hemodynamics Rest Ao:: Final Ao: LV: 101/12 Recommendations Recommendations: Valve Replacement Specimens Specimens: None Radiation Exposure (mGy) 1075 Contrast (mls) 35 Fluids (cc crystalloids) Fluids (cc crystalloids): 30 Drains Drains: None Anesthesia Moderate Procedural Complication(s) None Disposition PCU ACC Data: [facility] Cardiac Status Clinical evaluation leading to the procedure CAD Presenation: Sx unlikely to be ischemic Anginal Classification: No Symptoms Heart Failure: NYHA Class: CCS IV Cardiogenic Shock within 24 Hours: No Cardiac Arrest within 24 Hours: No Imaging Studies Past 6 Months: Yes Stress Studies Past 6 Months: No Diagnostic Physicians Name: Willem Mata MD Status: Elective Closure Device Percutaneous Entry Location: Radial Closure Device: Radial Band Recommendations: Valve Replacement Intraprocedure Events Significant Disection: No Perforation: No
[2018-09-11] MEDS: POTASSIUM CHLORIDE 20 MEQ TABCR PO SCH (21:00)
[2018-09-11] MEDS: ATORVASTATIN 40 MG TAB PO SCH (21:01)
[2018-09-11] MEDS: MAGNESIUM OXIDE 400 MG TAB PO SCH (21:01)
[2018-09-11] MEDS: PANTOprazole 40 MG TAB PO SCH (21:01)
[2018-09-11] MEDS: DOCUSATE SODIUM/SENNA 50/8.6MG TAB PO SCH (21:01)
[2018-09-11] MEDS: METOPROLOL SUCC 25MG EXT REL TAB PO SCH (21:03)
[2018-09-11] MEDS: SERTRALINE HCL 50 MG TABLET PO SCH (21:03)
[2018-09-12] MEDS: LEVOTHYROXINE SODIUM 50 MCG TABLET PO SCH (06:06)
[2018-09-12 08:17] LABS: Basophils # (auto) 0.02 K/uL (0-0.2); Basophils % (auto) 0.4 %; Eosinophils # (auto) 0.21 K/uL (0-0.5); Eosinophils % (auto) 4.2 %; Hematocrit (blood only) 36.7 % (42-52); Hemoglobin 11.3 g/dL (14.0-18.0); Immature Granulocytes # (auto) 0.01 K/uL (0.00-0.02); Immature Granulocytes % (auto) 0.2 %; Lymphocytes # (auto) 0.35 K/uL (1.2-3.4); Lymphocytes % (auto) 6.9 %; Mean Corpuscular Hgb Conc 30.8 g/dL (32-36); Mean Platelet Volume 11.5 fL (7.4-10.4); Monocytes # (auto) 0.42 K/uL (0.11-0.59); Monocytes % (auto) 8.3 %; Neutrophils # (auto) 4.03 K/uL (1.4-6.5); Platelet Count 144 K/uL (130-400); RDW Coefficient of Variation 16.7 % (11.5-14.5); RDW Standard Deviation 55.6 fL (36.4-46.3); Red Blood Count 4.08 M/uL (4.7-6.1); White Blood Count 5.04 K/uL (4.8-10.8)
[2018-09-12 08:27] LABS: INR 1.6 (0.9-1.1); Prothrombin Time 15.4 Seconds (9.0-12.0)
[2018-09-12 08:44] LABS: Albumin Level 2.3 gm/dl (3.4-5.0); BUN Creatinine Ratio 28.1 (10-20); Calcium 8.4 mg/dl (8.5-10.1); Creatinine Clr Calc Pharmacy 63.5 ml/min; Est GFR (African American) 84.5; Est GFR (Non-African American) 72.9; Magnesium 2.2 mg/dl (1.8-2.4); Potassium 4.3 mmol/L (3.5-5.1)
[2018-09-12 08:47] LABS: Bilirubin Direct 0.3 mg/dl (0-0.2); Bilirubin,Total 0.7 mg/dl (0.2-1); Phosphorus 3.9 mg/dl (2.5-4.9); Total Protein 5.7 gm/dl (6.4-8.2)
[2018-09-12] MEDS: ASPIRIN 81 MG ECTAB PO SCH (08:51)
[2018-09-12] MEDS: FUROSEMIDE 20 MG in SYRINGE 0 ML IV SCH ×2 (10:58→20:55)
--- NOTE | 2018-09-12 15:44 | Cardiology Progress Note ---
Date of Service September 12, 2018 Assessment & Plan (1) CHF (congestive heart failure): 2. Low gradient severe 3. Severe LV dysfunction, EF 20-25% 4. Paroxysmal AF 5. Hypotension 6. Hypothyroidism 7. Anemia 8. History of GI bleed 9. Frailty Still intermittently hypotensive but asymptomatic, well perfused on exam and renal function stable. Despite severe LV dysfunction/aortic stenosis, hypotension does not seem to be secondary to low cardiac output per hemodynamics on catheterization yesterday. Systemic vascular resistance index borderline low. Mild residual congestion on exam today. Would ideally target another day negative 500ml -- Continue gentle BID IV diuretics -- continue ASA/statin -- beta-salbador on hold -- no anticoagulation with prior GI bleeding and profound blood loss anemia -- OK with HRs to 110s, if persistently higher would load digoxin. -- TAVR evaluation at some point. -- Will continue to follow. Subjective Feeling OK this AM. Denies chest pain. Denies significant shortness of breath. BPs remain intermittently low, occasional values to 70s. Asymptomatic. Tele reviewed -- primarily AF, occasional RVR to 110s. Review of Systems All systems reviewed & are unremarkable except as noted in HPI & below Physical Exam 2 Vital Signs (Past 24 Hours): Last Vital Signs Temp 36.7 C 09/12/18 15:13 Pulse 120 H 09/12/18 15:13 Resp 18 09/12/18 15:13 BP 86/52 L 09/12/18 15:13 Pulse Ox 98 09/12/18 15:13 Constitutional: + ill appearing and + thin Eyes: + anicteric sclerae Respiratory: Auscultation: + crackles (few at bases right > left) Cardiovascular: Distant heart sounds, irregularly irregular, 2/6 systolic ejection murmur. 1-2+ edema to shins bilaterally (modest improvement from yesterday) JVD ~8 Skin: warm Neurologic: Non-focal Psychiatric: Orientation: alert _ (1) CHF (congestive heart failure) Heart failure chronicity: acute Heart failure type: unspecified Qualified Code(s): I50.9 - Heart failure, unspecified
[2018-09-12] MEDS: ATORVASTATIN 40 MG TAB PO SCH (20:56)
[2018-09-12] MEDS: DOCUSATE SODIUM/SENNA 50/8.6MG TAB PO SCH (20:57)
[2018-09-12] MEDS: PANTOprazole 40 MG TAB PO SCH (20:57)
[2018-09-12] MEDS: MAGNESIUM OXIDE 400 MG TAB PO SCH (20:58)
[2018-09-12] MEDS: SERTRALINE HCL 50 MG TABLET PO SCH (20:58)
[2018-09-12] MEDS: METOPROLOL SUCC 25MG EXT REL TAB PO SCH (20:59)
[2018-09-12] MEDS: POTASSIUM CHLORIDE 20 MEQ TABCR PO SCH (20:59)
[2018-09-13] MEDS: ACETAMINOPHEN 325 MG TAB PO PRN (03:39)
[2018-09-13] MEDS: LEVOTHYROXINE SODIUM 50 MCG TABLET PO SCH (06:07)
--- NOTE | 2018-09-13 06:48 | Hospitalist Progress Note ---
Date of Service September 12, 2018 Assessment & Plan (1) Acute on chronic combined systolic and diastolic congestive heart failure due to valvular disease: This patient is a 72 y/o M hx CAD, chronic combined systolic and diastolic CHF with a previous LVEF of 35%, paroxysmal AF, moderate to severe , pulmonary hypertension, HTN, HLD, hypothyroid, CVA with expressive dysphasia. The pt is a poor historian but states that he presented to the ER due to edema on his lower extremities. On arrival it was noted that he was hypotensive and hypoxic although relatively asymptomatic. He denies CP, SOB, cough or fevers. Initial evaluation including imaging and clinical exam is consistent with CHF exacerbation. His systolic blood pressure has been 75-95 systolic since admission CHF exacerbation likely secondary to severe aortic stenosis now present on echocardiogram. EF is severely reduced at 20-25% Cardiology following He has diuresed -1.7 L since admission although his weight is up from previous Clinically feels better and less lower extremity edema - there was a question of cardiogenic shock due to his low BP with volume overload on admission, but cardiology does not feel his hypotension is due to poor cardiac output as per cardiac catheterization results -Continue gentle diuresis with Lasix 20 mg IV twice daily and monitor his BP. -Continue strict I/O and daily weights, continue low-sodium diet -Continue to hold his ACEi and B salbador with parameters for hypotension -Goal is for another net -500 mL's (2) Hypertension: With significantly low blood pressures at this time but asymptomatic and seems to be perfusing well with normal renal function and normal mentation -Metoprolol was ordered but not been given due to low blood pressures -Holding home JACQUE inhibitor of benazepril (3) CAD (coronary artery disease): Status post stent to the RCA in the past and LAD Cardiac catheterization performed here on 09/10 in preparation for evaluation for TAVR and showed: Summary: 1. Widely patent prior RCA, PDA, diagonal stents. -Small circumflex again shown to be chronically occluded 2. Mildly elevated left-sided filling pressures. Borderline cardiac output 3. Mild to moderate pulmonary hypertension 4. Severe aortic stenosis (mean gradient 33, JOSE 0.52)increased JOSE with dobutamine suggests component of pseudo-stenosis due to LV dysfunction Cardiology recommendations: Continue gentle diuresis Guideline directed medical therapy as blood pressure allows. Referral for TAVR evaluation as an outpatient Continued ASCVD risk factor modification -Continue aspirin, atorvastatin, beta-salbador as tolerated No evidence of acute ischemia or chest pain at this time (4) Atrial fibrillation: Paroxysmal atrial fibrillation, with rapid rates at times continues in the 110s alternating with sinus bradycardia -Has been unable to receive his beta-salbador due to hypotension Cannot tolerate anticoagulation due to history of significant GI bleeding in the past -Cardiology recommends loading with digoxin if heart rate is consistently above the 110s (5) Aortic stenosis: Now with low gradient, severe aortic stenosis Needs evaluation for valve replacement as an outpatient Now status post cardiac catheterization here as above -Try to avoid hypotension but seems to be handling this well so far (6) Acute respiratory failure with hypoxia: Secondary to acute CHF Diuresing as above -Continue supplemental oxygen to keep pulse ox greater than 90% -will need two step prior to discharge likely (7) Hypothyroidism: TSH significantly elevated at 27-patient has not been compliant with taking his medication at home he admits -Increase levothyroxine to 50 micro grams here -We recommend checking TFTs in 4-6 weeks (8) Pulmonary hypertension: With elevated pressures seen on previous echo On cardiac catheterization here, pressures are as follows: PA 51/18/35 PAWP 21 Indicates mild to moderate pulmonary hypertension -Diuresis as above, supplemental O2 as above (9) History of CVA (cerebrovascular accident): With history of residual expressive aphasia -Continue aspirin With paroxysmal atrial fibrillation-unable to anticoagulate as above due to history of severe GI bleed (10) History of GI bleed: 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 Denies lightheadedness or chest pain. He has some mild shortness of breath. He is tolerating p.o. Nursing reports with manual blood pressures, they are improved in the 90s systolic rather than 70s with the automated blood pressure cuff. He has not put out a ton of urine today. Telemetry with alternating sinus bradycardia and rapid atrial fibrillation with rates in the 1 teens to 120s at times, he did have 3.5-second pause overnight. Review of Systems All systems reviewed & are unremarkable except as noted in HPI & below Physical Exam 2 Vital Signs (Past 24 Hours): Last Vital Signs Temp 36.9 C 09/13/18 03:08 Pulse 126 H 09/13/18 03:08 Resp 20 09/13/18 03:08 BP 93/63 L 09/13/18 03:08 Pulse Ox 97 09/13/18 03:08 Constitutional: WD/WN, vitals as above Eyes: PERRL, conjunctivae normal, anicteric sclerae ENMT: external ear and nose normal, oropharynx normal Neck: trachea midline, no thyromegaly Respiratory: normal respiratory effort Auscultation: + crackles (Bibasilar ) Cardiovascular: Rate/Rhythm: + tachycardic; + abnormal rhythm (Irregularly irregular) Extremities: + edema (2+ pitting edema of the bilateral legs to the knees improved from previous, TYRONE hose in place) Gastrointestinal (Abdomen): normal bowel sounds, soft, nontender, no hepatosplenomegaly Musculoskeletal: Extremities: extremities normal to inspection; no cyanosis and no clubbing Neurologic: moves all extremities and awake; no focal motor deficits Psychiatric: Orientation: alert, oriented to person, oriented to place and cooperative Results & Data Laboratory Results 09/12/18 09/12/18 09/12/18 Range/Units 07:25 07:25 07:25 WBC 5.04 (4.8-10.8) K/uL RBC 4.08 L (4.7-6.1) M/uL Hgb 11.3 L (14.0-18.0) g/dL Hct 36.7 L (42-52) % MCV 90.0 (80-100) fL MCH 27.7 (25-34) pg MCHC 30.8 L (32-36) g/dL RDW Std Deviation 55.6 H (36.4-46.3) fL RDW Coeff of Jessica 16.7 H (11.5-14.5) % Plt Count 144 (130-400) K/uL MPV 11.5 H (7.4-10.4) fL Immature Gran % (Auto) 0.2 % Neut % (Auto) 80.0 % Lymph % (Auto) 6.9 % [place] % (Auto) 8.3 % Eos % (Auto) 4.2 % Baso % (Auto) 0.4 % Immature Gran # (Auto) 0.01 (0.00-0.02) K/uL Neut # (Auto) 4.03 (1.4-6.5) K/uL Lymph # (Auto) 0.35 L (1.2-3.4) K/uL [place] # (Auto) 0.42 (0.11-0.59) K/uL Eos # (Auto) 0.21 (0-0.5) K/uL Baso # (Auto) 0.02 (0-0.2) K/uL PT 15.4 H (9.0-12.0) Seconds INR 1.6 H (0.9-1.1) Sodium 135 L (136-145) mmol/L Potassium 4.3 (3.5-5.1) mmol/L Chloride 95 L (98-107) mmol/L Carbon Dioxide 37 H (21-32) mmol/L Anion Gap 4.0 (3-11) BUN 28 H (7-18) mg/dl Creatinine 1.01 (0.6-1.4) mg/dl Est Cr Clr Drug Dosing 63.5 ml/min Est GFR ( Amer) 84.5 Est GFR (Non-Af Amer) 72.9 BUN/Creatinine Ratio 28.1 H (10-20) Glucose 84 (70-99) mg/dl Calcium 8.4 L (8.5-10.1) mg/dl Phosphorus 3.9 (2.5-4.9) mg/dl Magnesium 2.2 (1.8-2.4) mg/dl Total Bilirubin 0.7 (0.2-1) mg/dl Direct Bilirubin 0.3 H (0-0.2) mg/dl AST 24 (15-37) U/L ALT 26 (12-78) U/L Alkaline Phosphatase 151 H (45-117) U/L Total Protein 5.7 L (6.4-8.2) gm/dl Albumin 2.3 L (3.4-5.0) gm/dl Diagnostic Findings Cardiac catheterization results reviewed _ (1) Hypertension Hypertension type: essential hypertension Qualified Code(s): I10 - Essential (primary) hypertension (2) CAD (coronary artery disease) Coronary Disease-Associated Artery/Lesion type: [place] artery [place] vs. transplanted heart: [place] heart Associated angina: without angina Qualified Code(s): I25.10 - Atherosclerotic heart disease of [place] coronary artery without angina pectoris (3) Atrial fibrillation Atrial fibrillation type: paroxysmal Qualified Code(s): I48.0 - Paroxysmal atrial fibrillation (4) Aortic stenosis Cardiac valve disease etiology: etiology unspecified Qualified Code(s): I35.0 - Nonrheumatic aortic (valve) stenosis (5) Hypothyroidism Hypothyroidism type: acquired Qualified Code(s): E03.9 - Hypothyroidism, unspecified
[2018-09-13] MEDS: ASPIRIN 81 MG ECTAB PO SCH (07:52)
[2018-09-13 07:59] LABS: BUN Creatinine Ratio 27.8 (10-20); Calcium 8.1 mg/dl (8.5-10.1); Creatinine Clr Calc Pharmacy 61.1 ml/min; Est GFR (African American) 79.7; Est GFR (Non-African American) 68.8; Magnesium 1.9 mg/dl (1.8-2.4); Potassium 4.8 mmol/L (3.5-5.1)
[2018-09-13] MEDS ORDERED: MAGNESIUM SULFATE / D5W 1 GM/100 ML BAG IV ONE (09:00)
[2018-09-13] MEDS: FUROSEMIDE 20 MG in SYRINGE 0 ML IV SCH ×2 (09:45→20:39)
--- NOTE | 2018-09-13 12:20 | Cardiology Progress Note ---
Date of Service September 13, 2018 Assessment & Plan (1) CHF (congestive heart failure): 2. Low gradient severe 3. Severe LV dysfunction, EF 20-25% 4. Paroxysmal AF/?flutter 5. Hypotension 6. Hypothyroidism 7. Anemia 8. History of GI bleed 9. Frailty Blood pressures stable. Tachy to 120s -- looked to be SVT (suspect Atrial flutter with variable conduction vs AT), intermittently sinus now back to AF with HR to 110s Remains well perfused, improved congestion on exam today. -- continue current diuretics -- target negative 500 today -- with various atrial arrhythmias would retry his low dose beta-salbador today -- start digoxin - would load IV 0.25 mg, then 0.125 mg in 6 hrs, then 0.125 in another 6 hrs --> maintenance 0.125 PO daily after that. -- continue ASA/statin -- no anticoagulation with prior GI bleeding and profound blood loss anemia -- TAVR evaluation at some point. -- Will continue to follow. Subjective Up in chair eating lunch, feeling better. No chest pain. No significant shortness of breath. Still on 3L NC. Tele reviewed -- regular tachycardia ~125 primarily I/O +300 Physical Exam 2 Vital Signs (Past 24 Hours): Last Vital Signs Temp 36.5 C 09/13/18 08:15 Pulse 125 H 09/13/18 08:15 Resp 20 09/13/18 08:15 BP 99/61 L 09/13/18 08:15 Pulse Ox 99 09/13/18 08:15 Constitutional: no acute distress Eyes: + anicteric sclerae Respiratory: scant few crackles at bases clearing with respiration Cardiovascular: Rate/Rhythm: + tachycardic Heart Sounds: + murmur (2/6 systolic ejection at RUSB) Vessels: no JVD Extremities: + edema 1+ bilaterally with TYRONE stockings in place -- improved from yesterday Gastrointestinal (Abdomen): normal bowel sounds, soft, nontender, no hepatosplenomegaly Skin: no rashes, warm and dry Neurologic: no focal motor deficits Psychiatric: Orientation: alert _ (1) CHF (congestive heart failure) Heart failure chronicity: acute Heart failure type: unspecified Qualified Code(s): I50.9 - Heart failure, unspecified
[2018-09-13] MEDS ORDERED: ADENOSINE IV SOLN 3 MG/ML 2 ML VIAL IV ONE (12:31)
--- NOTE | 2018-09-13 17:02 | Hospitalist Progress Note ---
Date of Service September 13, 2018 Assessment & Plan (1) Acute on chronic combined systolic and diastolic congestive heart failure due to valvular disease: This patient is a 72 y/o M hx CAD, chronic combined systolic and diastolic CHF with a previous LVEF of 35%, paroxysmal AF, moderate to severe , pulmonary hypertension, HTN, HLD, hypothyroid, CVA with expressive dysphasia. The pt is a poor historian but states that he presented to the ER due to edema on his lower extremities. On arrival it was noted that he was hypotensive and hypoxic although relatively asymptomatic. He denies CP, SOB, cough or fevers. Initial evaluation including imaging and clinical exam is consistent with CHF exacerbation. His systolic blood pressure has been 75-95 systolic since admission CHF exacerbation likely secondary to severe aortic stenosis now present on echocardiogram. EF is severely reduced at 20-25% Cardiology following He has minimally diuresed since admission currently at -1.0 L, his fluid balance was actually positive since yesterday, and his weight is up a little over 1 kg since admission. However, he clinically feels better and has less lower extremity edema Tachycardia is likely contributing to his CHF - there was a question of cardiogenic shock due to his low BP with volume overload on admission, but cardiology does not feel his hypotension is due to poor cardiac output as per cardiac catheterization results -Continue gentle diuresis with Lasix 20 mg IV twice daily and monitor his BP. Consider increasing the dose of Lasix if continues to have poor response but caution with low blood pressures -Continue strict I/O and daily weights, continue low-sodium diet -Continue to hold his ACEi and B salbador with parameters for hypotension -Goal is for another net -500 mL's -Potassium level is 4.8 today- will hold home potassium of 20 mEq daily -Follow BMP (2) Atrial flutter with rapid ventricular response: On 09/13 with likely atrial flutter with rates in the 120s-130s alternating with normal sinus rhythm all day long -Discussed the case with cardiology -Will load with digoxin 0.25 mg IV x1 now, followed by 0.125 mg IV in 6 hours, and another 0.125 mg in 6 hours after that, followed by digoxin 0.125 mg p.o. once daily -Has been unable to get his beta-salbador due to hypotension (3) Hypertension: With significantly low blood pressures at this time however slightly improved from yesterday, but asymptomatic and seems to be perfusing well with normal renal function and normal mentation -Metoprolol was ordered but not been given due to low blood pressures -Holding home JACQUE inhibitor of benazepril (4) CAD (coronary artery disease): Status post stent to the RCA in the past and LAD Cardiac catheterization performed here on 09/10 in preparation for evaluation for TAVR and showed: Summary: 1. Widely patent prior RCA, PDA, diagonal stents. -Small circumflex again shown to be chronically occluded 2. Mildly elevated left-sided filling pressures. Borderline cardiac output 3. Mild to moderate pulmonary hypertension 4. Severe aortic stenosis (mean gradient 33, JOSE 0.52)increased JOSE with dobutamine suggests component of pseudo-stenosis due to LV dysfunction Cardiology recommendations: Continue gentle diuresis Guideline directed medical therapy as blood pressure allows. Referral for TAVR evaluation as an outpatient Continued ASCVD risk factor modification -Continue aspirin, atorvastatin, beta-salbador as tolerated No evidence of acute ischemia or chest pain at this time (5) Atrial fibrillation: Paroxysmal atrial fibrillation, with rapid rates at times continues in the 110s alternating with sinus bradycardia -Has been unable to receive his beta-salbador due to hypotension Cannot tolerate anticoagulation due to history of significant GI bleeding in the past -Loading with digoxin as above (6) Aortic stenosis: Now with low gradient, severe aortic stenosis Needs evaluation for valve replacement as an outpatient Now status post cardiac catheterization here as above -Try to avoid hypotension but seems to be handling this well so far (7) Acute respiratory failure with hypoxia: Secondary to acute CHF Diuresing as above -Continue supplemental oxygen to keep pulse ox greater than 90% -will need two step prior to discharge likely (8) Hypothyroidism: TSH significantly elevated at 27-patient has not been compliant with taking his medication at home he admits -Increase levothyroxine to 50 micro grams here -We recommend checking TFTs in 4-6 weeks (9) Pulmonary hypertension: With elevated pressures seen on previous echo On cardiac catheterization here, pressures are as follows: PA 51/18/35 PAWP 21 Indicates mild to moderate pulmonary hypertension -Diuresis as above, supplemental O2 as above (10) History of CVA (cerebrovascular accident): With history of residual expressive aphasia -Continue aspirin With paroxysmal atrial fibrillation-unable to anticoagulate as above due to history of severe GI bleed (11) History of GI bleed: 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 Poor absorption of nutrients due to gut edema from CHF? Does have fatty liver as below, could be due to hepatic congestion from CHF -Will not give vitamin K at this time No evidence of bleeding (14) Depression: Stable -Continue sertraline 75 mg daily (15) Fatty liver: Evidenced by imaging with abdominal ultrasound and CT scan in 2018 With elevated alkaline phosphatase likely secondary to fatty liver -With elevated INR here and borderline low platelets and mildly elevated direct bilirubin, could be some hepatic congestion from CHF -Follow LFTs (16) DVT prophylaxis: Heparin SQ was on hold for epistaxis-will restart at 5000 units every 12h and watch for epistaxis Disposition-remain on telemetry Will need PT/OT when condition improves enough to receive this evaluation Subjective Patient has no complaints today. RN reported he is out of bed to chair for most of the morning. He is tolerating p.o. He denies lightheadedness or chest pain. He denies shortness of breath. He remains on oxygen. I discussed the case with cardiology. Telemetry remains with intermittent normal sinus rhythm with rates in the 70s- 90s alternating with rapid atrial flutter with rates in the 120s and 130s Review of Systems All systems reviewed & are unremarkable except as noted in HPI & below Physical Exam 2 Vital Signs (Past 24 Hours): Last Vital Signs Temp 36.3 C L 09/13/18 15:01 Pulse 127 H 09/13/18 15:01 Resp 18 09/13/18 15:01 BP 94/63 L 09/13/18 15:01 Pulse Ox 100 09/13/18 15:01 Constitutional: WD/WN, vitals as above Eyes: PERRL, conjunctivae normal, anicteric sclerae Neck: trachea midline, no thyromegaly Respiratory: normal respiratory effort Auscultation: + crackles (Bibasilar ) Cardiovascular: Rate/Rhythm: regular rhythm and + tachycardic Heart Sounds : + murmur (2/6 NAYANA at the RUSB) Extremities: + edema (1-2+ pitting edema of the bilateral legs to the knees improved from previous, TYRONE hose in place) Gastrointestinal (Abdomen): normal bowel sounds, soft, nontender, no hepatosplenomegaly Musculoskeletal: Extremities: no cyanosis and no clubbing Skin: no rashes, warm and dry Neurologic: moves all extremities and awake; no focal motor deficits Psychiatric: Orientation: alert, oriented to person, oriented to place and cooperative Results & Data Laboratory Results 09/13/18 Range/Units 07:08 Sodium 133 L (136-145) mmol/L Potassium 4.8 (3.5-5.1) mmol/L Chloride 95 L (98-107) mmol/L Carbon Dioxide 36 H (21-32) mmol/L Anion Gap 2.0 L (3-11) BUN 29 H (7-18) mg/dl Creatinine 1.06 (0.6-1.4) mg/dl Est Cr Clr Drug Dosing 61.1 ml/min Est GFR ( Amer) 79.7 Est GFR (Non-Af Amer) 68.8 BUN/Creatinine Ratio 27.8 H (10-20) Glucose 96 (70-99) mg/dl Calcium 8.1 L (8.5-10.1) mg/dl Magnesium 1.9 (1.8-2.4) mg/dl ECG Additional Comments: ECG from 12:30 PM with normal sinus rhythm ECG from 1700 with tachycardia, suspected atrial flutter _ (1) CAD (coronary artery disease) Associated angina: without angina Coronary Disease-Associated Artery/Lesion type: [place] artery [place] vs. transplanted heart: [place] heart Qualified Code (s): I25.10 - Atherosclerotic heart disease of [place] coronary artery without angina pectoris (2) Aortic stenosis Cardiac valve disease etiology: etiology unspecified Qualified Code(s): I35.0 - Nonrheumatic aortic (valve) stenosis (3) Atrial fibrillation Atrial fibrillation type: paroxysmal Qualified Code(s): I48.0 - Paroxysmal atrial fibrillation (4) HLD (hyperlipidemia) Hyperlipidemia type: unspecified Qualified Code(s): E78.5 - Hyperlipidemia, unspecified (5) Hypothyroidism Hypothyroidism type: acquired Qualified Code(s): E03.9 - Hypothyroidism, unspecified (6) Hypertension Hypertension type: essential hypertension Qualified Code(s): I10 - Essential (primary) hypertension
[2018-09-13] MEDS ORDERED: DIGOXIN 250 MCG in SYRINGE 9 ML IV STA (17:11)
[2018-09-13] MEDS: HEPARIN SOD 5,000 UNIT/0.5 ML VIAL SQ SCH (20:39)
[2018-09-13] MEDS: DOCUSATE SODIUM/SENNA 50/8.6MG TAB PO SCH (20:40)
[2018-09-13] MEDS: PANTOprazole 40 MG TAB PO SCH (20:40)
[2018-09-13] MEDS: ATORVASTATIN 40 MG TAB PO SCH (20:40)
[2018-09-13] MEDS: SERTRALINE HCL 50 MG TABLET PO SCH (20:40)
[2018-09-13] MEDS: METOPROLOL SUCC 25MG EXT REL TAB PO SCH (20:40)
[2018-09-13] MEDS: MAGNESIUM OXIDE 400 MG TAB PO SCH (20:41)
[2018-09-13] MEDS ORDERED: DIGOXIN 125 MCG in SYRINGE 9.5 ML IV ONE (23:00)
[2018-09-14] MEDS ORDERED: DIGOXIN 125 MCG in SYRINGE 9.5 ML IV ONE (05:00)
[2018-09-14] MEDS: LEVOTHYROXINE SODIUM 50 MCG TABLET PO SCH (06:07)
[2018-09-14 06:21] LABS: INR 1.5 (0.9-1.1); Prothrombin Time 14.8 Seconds (9.0-12.0)
[2018-09-14 06:23] LABS: Basophils # (auto) 0.01 K/uL (0-0.2); Basophils % (auto) 0.2 %; Eosinophils # (auto) 0.29 K/uL (0-0.5); Eosinophils % (auto) 6.1 %; Hematocrit (blood only) 34.2 % (42-52); Hemoglobin 10.4 g/dL (14.0-18.0); Immature Granulocytes # (auto) 0.01 K/uL (0.00-0.02); Immature Granulocytes % (auto) 0.2 %; Lymphocytes % (auto) 8.4 %; Mean Corpuscular Hgb Conc 30.4 g/dL (32-36); Mean Corpuscular Volume 91.7 fL (80-100); Mean Platelet Volume 11.9 fL (7.4-10.4); Monocytes # (auto) 0.39 K/uL (0.11-0.59); Monocytes % (auto) 8.2 %; Neutrophils # (auto) 3.64 K/uL (1.4-6.5); Neutrophils % (auto) 76.9 %; Platelet Count 137 K/uL (130-400); RDW Coefficient of Variation 16.6 % (11.5-14.5); RDW Standard Deviation 55.3 fL (36.4-46.3); Red Blood Count 3.73 M/uL (4.7-6.1); White Blood Count 4.74 K/uL (4.8-10.8)
[2018-09-14 06:45] LABS: Albumin Level 2.1 gm/dl (3.4-5.0); BUN Creatinine Ratio 30.8 (10-20); Bilirubin Direct 0.3 mg/dl (0-0.2); Creatinine Clr Calc Pharmacy 61.8 ml/min; Est GFR (African American) 98.5; Potassium 4.2 mmol/L (3.5-5.1)
[2018-09-14 06:48] LABS: Bilirubin,Total 0.6 mg/dl (0.2-1); Total Protein 5.6 gm/dl (6.4-8.2)
[2018-09-14] MEDS: METOPROLOL SUCC 25MG EXT REL TAB PO SCH (07:51)
[2018-09-14] MEDS: FUROSEMIDE 20 MG in SYRINGE 0 ML IV SCH (07:51)
[2018-09-14] MEDS: ASPIRIN 81 MG ECTAB PO SCH (07:53)
[2018-09-14] MEDS: HEPARIN SOD 5,000 UNIT/0.5 ML VIAL SQ SCH ×2 (07:54→21:16)
--- NOTE | 2018-09-14 17:59 | Hospitalist Progress Note ---
Date of Service September 14, 2018 Assessment & Plan (1) Acute on chronic combined systolic and diastolic congestive heart failure due to valvular disease: Symptomatically improved. However, still w/ evidence of volume overload on examination thus continue IV lasix. A fib/flutter with better rate control today. Not a candidate for JACQUE/ARB due to critical and low BP. Appreciate cardiology consultation. s/p cath yesterday - CAD present but stents are patent. Cath confirmed severity of . Present on Admission?: Yes (2) Acute respiratory failure with hypoxia: 2nd to decompensated CHF. Continue CHF management. Present on Admission?: Yes (3) Hypothyroidism: Decompensated. Last 2 TSHs >25. Likely playing a role in his decompensated CHF as well. Dose of synthroid increased to 50mcg daily. Will need repeat TSH in 4-6 weeks. (4) Pulmonary hypertension: (5) Atrial flutter with rapid ventricular response: Improved rates with BB and loading of digoxin yesterday. Did have transient bradycardia this AM -- if this becomes more frequent or persistent will need to consider stopping the digoxin. (6) Coagulopathy: 2nd to hepatic congestion from CHF? vitamin K deficiency? simply repeat INR in am to ensure stability. (7) Aortic stenosis: severe/critical. needs TAVR evaluation at tertiary care center when able. (8) CAD in [place] artery: s/p cath yesterday stents patent continue BB, statin, asa (9) DVT prophylaxis: heparin 5000 BID cautiously in light of coagulopathy OT, PT evals Subjective Patient feeling better but admits to feeling weak. Less dyspnea. Less congestion. Still with GARBER however. Tele overnight improved rates - occasional bradycardia noted. Underlying rhythm a. fib. Constitutional: no fever and no chills Respiratory: + dyspnea on exertion; no cough Cardiovascular: + edema; no chest pain, no orthopnea and no paroxysmal nocturnal dyspnea Gastrointestinal: no abdominal pain, no nausea, no vomiting and no constipation Physical Exam 2 Vital Signs (Past 24 Hours): Last Vital Signs Temp 36.5 C 09/14/18 15:08 Pulse 84 09/14/18 15:08 Resp 18 09/14/18 15:08 BP 97/62 L 09/14/18 15:08 Pulse Ox 95 09/14/18 16:00 Constitutional: well developed and well nourished; no acute distress ENMT: external ear and nose normal, oropharynx normal Respiratory: Auscultation: + rales (b/l bases ) Cardiovascular: Rate/Rhythm: regular rate; + abnormal rhythm (irregular) Heart Sounds: normal S1 and normal S2 Vessels: + JVD (2/3 way up neck), posterior tibial pulses present and dorsalis pedis pulses present Extremities : + edema (2+ b/l) Psychiatric: A+Ox3, euthymic affect Results & Data Laboratory Results Laboratory Results - last 24 hr 09/14/18 09/14/18 09/14/18 05:48 05:48 05:48 WBC 4.74 L RBC 3.73 L Hgb 10.4 L Hct 34.2 L MCV 91.7 MCH 27.9 MCHC 30.4 L RDW Std Deviation 55.3 H RDW Coeff of Jessica 16.6 H Plt Count 137 MPV 11.9 H Immature Gran % (Auto) 0.2 Neut % (Auto) 76.9 Lymph % (Auto) 8.4 [place] % (Auto) 8.2 Eos % (Auto) 6.1 Baso % (Auto) 0.2 Immature Gran # (Auto) 0.01 Neut # (Auto) 3.64 Lymph # (Auto) 0.40 L [place] # (Auto) 0.39 Eos # (Auto) 0.29 Baso # (Auto) 0.01 PT 14.8 H INR 1.5 H Sodium 136 Potassium 4.2 Chloride 95 L Carbon Dioxide 40 H Anion Gap 1.0 L BUN 27 H Creatinine 0.87 Est Cr Clr Drug Dosing 61.8 Est GFR ( Amer) 98.5 Est GFR (Non-Af Amer) 85.0 BUN/Creatinine Ratio 30.8 H Glucose 82 Calcium 8.0 L Total Bilirubin 0.6 Direct Bilirubin 0.3 H AST 20 ALT 22 Alkaline Phosphatase 148 H Total Protein 5.6 L Albumin 2.1 L _ (1) Hypothyroidism Hypothyroidism type: acquired Qualified Code(s): E03.9 - Hypothyroidism, unspecified (2) Aortic stenosis Cardiac valve disease etiology: etiology unspecified Qualified Code(s): I35.0 - Nonrheumatic aortic (valve) stenosis
[2018-09-14] MEDS ORDERED: FUROSEMIDE 20 MG in SYRINGE 0 ML IV ONE (18:15)
[2018-09-14] MEDS: DOCUSATE SODIUM/SENNA 50/8.6MG TAB PO SCH (21:16)
[2018-09-14] MEDS: SERTRALINE HCL 50 MG TABLET PO SCH (21:16)
[2018-09-14] MEDS: MAGNESIUM OXIDE 400 MG TAB PO SCH (21:16)
[2018-09-14] MEDS: PANTOprazole 40 MG TAB PO SCH (21:16)
[2018-09-14] MEDS: ATORVASTATIN 40 MG TAB PO SCH (21:16)
[2018-09-15] MEDS: LEVOTHYROXINE SODIUM 50 MCG TABLET PO SCH (05:52)
[2018-09-15 06:03] LABS: INR 1.5 (0.9-1.1); Prothrombin Time 15.2 Seconds (9.0-12.0)
[2018-09-15 06:27] LABS: BUN Creatinine Ratio 26.3 (10-20); Est GFR (Non-African American) 87.1; Magnesium 1.7 mg/dl (1.8-2.4); Potassium 4.1 mmol/L (3.5-5.1)
[2018-09-15] MEDS ORDERED: MAGNESIUM SULFATE / D5W 1 GM/100 ML BAG IV ONE (07:45)
[2018-09-15] MEDS: MAGNESIUM OXIDE 400 MG TAB PO SCH ×2 (08:35→20:31)
[2018-09-15] MEDS: ASPIRIN 81 MG ECTAB PO SCH (08:36)
[2018-09-15] MEDS: HEPARIN SOD 5,000 UNIT/0.5 ML VIAL SQ SCH ×2 (08:37→20:30)
[2018-09-15] MEDS: FUROSEMIDE 20 MG in SYRINGE 0 ML IV SCH ×2 (08:38→17:32)
[2018-09-15] MEDS: DIGOXIN 0.125 MG TAB PO SCH (08:40)
[2018-09-15 13:56] LABS: iSTAT Arterial Blood Gas HCO3 36 meg/L (19-24); iSTAT Arterial Blood Gas pCO2 59 mmHg (35-46); iSTAT Arterial Blood Gas pH 7.39 (7.35-7.45); iSTAT Carbon Dioxide 37 mEq/l (24-31)
[2018-09-15 13:56] LABS: iSTAT Arterial Blood Gas HCO3 35 meg/L (19-24); iSTAT Arterial Blood Gas pCO2 64 mmHg (35-46); iSTAT Arterial Blood Gas pH 7.35 (7.35-7.45); iSTAT Carbon Dioxide 37 mEq/l (24-31)
[2018-09-15 13:57] LABS: iSTAT Arterial Blood Gas HCO3 36 meg/L (19-24); iSTAT Arterial Blood Gas pCO2 66 mmHg (35-46); iSTAT Arterial Blood Gas pH 7.35 (7.35-7.45); iSTAT Carbon Dioxide 38 mEq/l (24-31)
[2018-09-15 13:57] LABS: iSTAT Arterial Blood Gas HCO3 36 meg/L (19-24); iSTAT Arterial Blood Gas pCO2 60 mmHg (35-46); iSTAT Arterial Blood Gas pH 7.38 (7.35-7.45); iSTAT Carbon Dioxide 37 mEq/l (24-31)
--- NOTE | 2018-09-15 14:02 | Cardiology Progress Note ---
Date of Service September 15, 2018 Assessment & Plan (1) CHF (congestive heart failure): 2. Low gradient severe 3. Severe LV dysfunction, EF 20-25% 4. Paroxysmal AF/?flutter 5. Hypotension 6. Hypothyroidism 7. Anemia 8. History of GI bleed 9. Frailty Remains well perfused, improved congestion following continued diuresis. BPs still variable. Renal function stable Remains predominantly in AF, rate control improved. -- continue current IV diuretics, seems to be approaching euvolemia hopeful transition to maintenance diuretics soon -- continue current digoxin. metoprolol on hold with hypotension. -- continue ASA/statin -- no anticoagulation with prior GI bleeding and profound blood loss anemia -- TAVR evaluation at some point as an outpatient Subjective Up in chair eating lunch, feeling better. No chest pain. No significant shortness of breath. Still on 2L NC. BPs remain variable Tele reviewed --still in atrial fibrillation, periods of sinus rhythm to 70s, better rate controlled with only rare episodes of the 120s Review of Systems 10 point review of systems was completed and was otherwise negative unless stated in HPI Physical Exam 2 Vital Signs (Past 24 Hours): Last Vital Signs Temp 37.0 C 09/15/18 11:02 Pulse 64 09/15/18 11:02 Resp 18 09/15/18 11:02 BP 73/40 L 09/15/18 11:02 Pulse Ox 90 09/15/18 11:38 Constitutional: + ill appearing and + thin; no acute distress Eyes: + anicteric sclerae ENMT: Mallampati Class: II Respiratory: normal respiratory effort, lungs clear to auscultation Cardiovascular: Rate/Rhythm: + tachycardic; + abnormal rhythm Heart Sounds : + murmur (2/6 systolic ejection at RUSB) Vessels: no JVD Extremities: + edema (improved) Gastrointestinal (Abdomen): normal bowel sounds, soft, nontender, no hepatosplenomegaly Skin: no rashes, warm and dry Neurologic: no focal motor deficits Psychiatric: Orientation: alert _ (1) CHF (congestive heart failure) Heart failure chronicity: acute Heart failure type: unspecified Qualified Code(s): I50.9 - Heart failure, unspecified
--- NOTE | 2018-09-15 20:17 | Hospitalist Progress Note ---
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 Continue IV lasix BID for now. BMP in am. Daily weights. Fluid restriction. Not a candidate for JACQUE/ARB due to critical and low BP. Appreciate cardiology consultation. s/p cath this admission - CAD present but stents are patent. Cath confirmed severity of . Severe and a. fib/flutter both may have contributed to development of systolic CHF. (2) Acute respiratory failure with hypoxia: 2nd to decompensated CHF. Continue CHF management. Improving. Wean O2 as tolerated. (3) Hypothyroidism: Decompensated. Last 2 TSHs >25. Likely playing a role in his decompensated CHF as well. Dose of synthroid increased to 50mcg daily this admission. Will need repeat TSH in 4-6 weeks. (4) Pulmonary hypertension: mild to moderate pulmonary hypertension assess need for home O2 at discharge (5) Atrial flutter with rapid ventricular response: Improved rates with BB and digoxin. NO further significant bradycardia. Continue both AV mary ellen agents. (6) Coagulopathy: 2nd to hepatic congestion from CHF? vitamin K deficiency? INR remains at 1.5 consider vitamin K supplementation (7) Aortic stenosis: severe/critical. needs TAVR evaluation at tertiary care center when able. (8) CAD in [place] artery: s/p cath this admission with patent stents continue BB, statin, asa (9) DVT prophylaxis: heparin 5000 BID cautiously in light of coagulopathy OT, PT evals appreciated; likely needs rehab daughter updated by phone 09/15/18 Subjective tele with NSR or rate-controlled a. fib patient "feeling good" sitting in chair at bedside during the visit denied any complaints still requiring O2 Constitutional: no fever and no chills Respiratory: no cough Cardiovascular: no chest pain, no orthopnea and no paroxysmal nocturnal dyspnea Gastrointestinal: no abdominal pain, no nausea, no vomiting, no constipation and no diarrhea/loose stools Physical Exam 2 Vital Signs (Past 24 Hours): Last Vital Signs Temp 36.4 C L 09/15/18 19:02 Pulse 92 H 09/15/18 19:02 Resp 16 09/15/18 19:02 BP 94/63 L 09/15/18 19:02 Pulse Ox 96 09/15/18 19:02 Constitutional: well developed and well nourished; no acute distress ENMT: external ear and nose normal, oropharynx normal Respiratory: Auscultation: + rales (b/l bases -- but improved) Cardiovascular: Rate/Rhythm: regular rate; + abnormal rhythm (irregular) Heart Sounds: normal S1 and normal S2 Vessels: + JVD (improved today), posterior tibial pulses present and dorsalis pedis pulses present Extremities : + edema (trace b/l ) Psychiatric: A+Ox3, euthymic affect Results & Data Laboratory Results Laboratory Results - last 24 hr 09/11/18 09/11/18 09/11/18 14:07 14:10 14:24 PT INR POC pH 7.39 7.35 7.38 POC pCO2 59 H 64 H 60 H POC pO2 146 H 39 L 140 H POC HCO3 36 H 35 H 36 H POC Total CO2 37 H 37 H 37 H POC Base Excess 11.0 H 10.0 H 10.0 H POC ABG O2 Sat 99.0 H 69.0 L 99.0 H Sodium Potassium Chloride Carbon Dioxide Anion Gap BUN Creatinine Est Cr Clr Drug Dosing Est GFR ( Amer) Est GFR (Non-Af Amer) BUN/Creatinine Ratio Glucose Calcium Magnesium 09/11/18 09/15/18 09/15/18 14:27 05:18 05:18 PT 15.2 H INR 1.5 H POC pH 7.35 POC pCO2 66 H POC pO2 41 L POC HCO3 36 H POC Total CO2 38 H POC Base Excess 11.0 H POC ABG O2 Sat 72.0 L Sodium 136 Potassium 4.1 Chloride 94 L Carbon Dioxide 39 H Anion Gap 3.0 BUN 22 H Creatinine 0.82 Est Cr Clr Drug Dosing 78.0 Est GFR ( Amer) 101.0 Est GFR (Non-Af Amer) 87.1 BUN/Creatinine Ratio 26.3 H Glucose 89 Calcium 8.0 L Magnesium 1.7 L _ (1) Hypothyroidism Hypothyroidism type: acquired Qualified Code(s): E03.9 - Hypothyroidism, unspecified (2) Aortic stenosis Cardiac valve disease etiology: etiology unspecified Qualified Code(s): I35.0 - Nonrheumatic aortic (valve) stenosis
[2018-09-15] MEDS: METOPROLOL SUCC 25MG EXT REL TAB PO SCH (20:29)
[2018-09-15] MEDS: ATORVASTATIN 40 MG TAB PO SCH (20:30)
[2018-09-15] MEDS: PANTOprazole 40 MG TAB PO SCH (20:31)
[2018-09-15] MEDS: DOCUSATE SODIUM/SENNA 50/8.6MG TAB PO SCH (20:31)
[2018-09-15] MEDS: SERTRALINE HCL 50 MG TABLET PO SCH (20:32)
[2018-09-16 06:16] LABS: BUN Creatinine Ratio 28.6 (10-20); Calcium 7.9 mg/dl (8.5-10.1); Creatinine Clr Calc Pharmacy 78.1 ml/min; Est GFR (African American) 100.5; Est GFR (Non-African American) 86.7; Magnesium 1.9 mg/dl (1.8-2.4); Potassium 4.3 mmol/L (3.5-5.1)
[2018-09-16] MEDS: LEVOTHYROXINE SODIUM 50 MCG TABLET PO SCH (06:34)
[2018-09-16] MEDS: DIGOXIN 0.125 MG TAB PO SCH (08:58)
[2018-09-16] MEDS: HEPARIN SOD 5,000 UNIT/0.5 ML VIAL SQ SCH ×2 (08:59→21:04)
[2018-09-16] MEDS: MAGNESIUM OXIDE 400 MG TAB PO SCH ×2 (09:01→21:04)
[2018-09-16] MEDS: ASPIRIN 81 MG ECTAB PO SCH (09:01)
[2018-09-16] MEDS: FUROSEMIDE 20 MG in SYRINGE 0 ML IV SCH ×2 (09:01→17:06)
--- NOTE | 2018-09-16 15:13 | Cardiology Progress Note ---
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 Low gradient severe 3. Severe LV dysfunction, EF 20-25% 4. Paroxysmal AF/?flutter 5. Hypotension 6. Hypothyroidism 7. Anemia 8. History of GI bleed 9. Frailty Remains well perfused, minimal congestion. BPs improved. Renal function stable Remains predominantly in AF, rate reasonably controlled -- continue ongoing diuresis -- continue current digoxin. metoprolol on hold with hypotension. -- continue ASA/statin -- no anticoagulation with prior GI bleeding and profound blood loss anemia -- TAVR evaluation at some point as an outpatient Subjective Up walking in halls today with PT. No chest pain. No significant shortness of breath. Still on 2L NC. BPs more stable in 90s Tele reviewed --still in atrial fibrillation, periods of sinus rhythm to 70s, better rate controlled with fewer episodes of the 120s Physical Exam 2 Vital Signs (Past 24 Hours): Last Vital Signs Temp 36.6 C 09/16/18 11:05 Pulse 67 09/16/18 11:05 Resp 18 09/16/18 11:05 BP 94/56 L 09/16/18 11:05 Pulse Ox 96 09/16/18 11:05 Constitutional: + thin; no acute distress Eyes: + anicteric sclerae ENMT: Mallampati Class: II Respiratory: normal respiratory effort, lungs clear to auscultation Cardiovascular: Rate/Rhythm: + tachycardic; + abnormal rhythm Heart Sounds : + murmur (2/6 systolic ejection at RUSB) Vessels: no JVD Extremities: + edema (trace) Gastrointestinal (Abdomen): normal bowel sounds, soft, nontender, no hepatosplenomegaly Skin: no rashes, warm and dry Neurologic: no focal motor deficits Psychiatric: Orientation: alert
--- NOTE | 2018-09-16 18:36 | Hospitalist Progress Note ---
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 BUN and Cr stable. Continue IV lasix BID for now. May need to stop lasix tomorrow. BMP in am. Daily weights. Fluid restriction. Not a candidate for JACQUE/ARB due to critical and low BP. Appreciate cardiology consultation. s/p cath this admission - CAD present but stents are patent. Cath confirmed severity of . Severe and a. fib/flutter likely contributed to development of systolic CHF. (2) Acute respiratory failure with hypoxia: 2nd to decompensated CHF. Continue diuresis. Improving. Wean O2 as tolerated if sats are >90%. (3) Hypothyroidism: Decompensated. Last 2 TSHs >25. Likely playing a role in his decompensated CHF as well. Dose of synthroid increased to 50mcg daily this admission. Will need repeat TSH in 4-6 weeks. (4) Pulmonary hypertension: mild to moderate pulmonary hypertension assess need for home O2 at discharge (5) Atrial flutter with rapid ventricular response: Cont digoxin; resume BB if blood pressure will allow. NO further significant bradycardia. (6) Coagulopathy: 2nd to hepatic congestion from CHF? vitamin K deficiency? INR remains at 1.5 consider vitamin K supplementation repeat INR in 1-2 days for stability (7) Aortic stenosis: severe/critical. needs TAVR evaluation at tertiary care center when able. (8) CAD in [place] artery: s/p cath this admission with patent stents continue BB, statin, asa (9) DVT prophylaxis: heparin 5000 BID cautiously in light of coagulopathy OT, PT evals appreciated; needs rehab daughter updated by phone 09/15/18 leave on telemetry labs in am Subjective pt feeling well denies any orthopnea, PND, dyspnea no cough eating well tele with NSR and runs of a. fib/flutter Constitutional: no fever Respiratory: no dyspnea Cardiovascular: no chest pain Gastrointestinal: no abdominal pain Physical Exam 2 Vital Signs (Past 24 Hours): Last Vital Signs Temp 36.6 C 09/16/18 15:13 Pulse 102 H 09/16/18 15:13 Resp 19 09/16/18 15:13 BP 96/65 L 09/16/18 15:13 Pulse Ox 97 09/16/18 15:13 Constitutional: well developed and well nourished; no acute distress ENMT: external ear and nose normal, oropharynx normal Respiratory: Auscultation: + rales (b/l bases -- mild) Cardiovascular: Rate/Rhythm: regular rate; + abnormal rhythm (irregular) Heart Sounds: normal S1 and normal S2 Vessels: posterior tibial pulses present and dorsalis pedis pulses present; no JVD Extremities: no edema Psychiatric: A+Ox3, euthymic affect Results & Data Laboratory Results Laboratory Results - last 24 hr 09/16/18 05:20 Sodium 134 L Potassium 4.3 Chloride 92 L Carbon Dioxide 42 H* Anion Gap 0 L BUN 24 H Creatinine 0.83 Est Cr Clr Drug Dosing 78.1 Est GFR ( Amer) 100.5 Est GFR (Non-Af Amer) 86.7 BUN/Creatinine Ratio 28.6 H Glucose 87 Calcium 7.9 L Magnesium 1.9 _ (1) Aortic stenosis Cardiac valve disease etiology: etiology unspecified Qualified Code(s): I35.0 - Nonrheumatic aortic (valve) stenosis (2) Hypothyroidism Hypothyroidism type: acquired Qualified Code(s): E03.9 - Hypothyroidism, unspecified
[2018-09-16] MEDS: MAGNESIUM HYDROXIDE SUSP 30 ML UDC PO PRN (19:19)
[2018-09-16] MEDS: ATORVASTATIN 40 MG TAB PO SCH (21:04)
[2018-09-16] MEDS: PANTOprazole 40 MG TAB PO SCH (21:05)
[2018-09-16] MEDS: SERTRALINE HCL 50 MG TABLET PO SCH (21:05)
[2018-09-16] MEDS: DOCUSATE SODIUM/SENNA 50/8.6MG TAB PO SCH (21:05)
[2018-09-16] MEDS: METOPROLOL SUCC 25MG EXT REL TAB PO SCH (21:06)
[2018-09-17 05:53] LABS: Hematocrit (blood only) 34.6 % (42-52); Hemoglobin 10.5 g/dL (14.0-18.0); Mean Corpuscular Hgb Conc 30.3 g/dL (32-36); Mean Corpuscular Volume 91.5 fL (80-100); Mean Platelet Volume 10.7 fL (7.4-10.4); Platelet Count 160 K/uL (130-400); RDW Coefficient of Variation 16.5 % (11.5-14.5); RDW Standard Deviation 55.5 fL (36.4-46.3); Red Blood Count 3.78 M/uL (4.7-6.1); White Blood Count 4.81 K/uL (4.8-10.8)
[2018-09-17] MEDS: LEVOTHYROXINE SODIUM 50 MCG TABLET PO SCH (06:10)
[2018-09-17 06:37] LABS: BUN Creatinine Ratio 24.4 (10-20); Calcium 8.5 mg/dl (8.5-10.1); Creatinine Clr Calc Pharmacy 75.3 ml/min; Est GFR (African American) 99.5; Est GFR (Non-African American) 85.8; Potassium 4.2 mmol/L (3.5-5.1)
[2018-09-17] MEDS: MAGNESIUM OXIDE 400 MG TAB PO SCH ×2 (07:51→20:41)
[2018-09-17] MEDS: FUROSEMIDE 20 MG in SYRINGE 0 ML IV SCH ×2 (07:51→18:26)
[2018-09-17] MEDS: DIGOXIN 0.125 MG TAB PO SCH (07:51)
[2018-09-17] MEDS: HEPARIN SOD 5,000 UNIT/0.5 ML VIAL SQ SCH ×2 (07:51→20:40)
[2018-09-17] MEDS: ASPIRIN 81 MG ECTAB PO SCH (07:51)
--- NOTE | 2018-09-17 11:00 | XRay Report ---
XR chest 2V routine CLINICAL HISTORY: 72 years-old Male presenting with CHF, interval change. TECHNIQUE: PA and lateral views of the chest were obtained. COMPARISON: 09/10/2018. FINDINGS: Atherosclerosis of the aortic arch. Cardiac silhouette enlarged. Pulmonary vascular prominence and br onchial wall cuffing. Central and bibasilar added density of the lungs is overall decreased from prio r. Trace bilateral pleural effusions may be present. Prominent residual lung markings. No pneumothora x. Degenerative changes of the thoracic spine. External leads overlie the epigastrium. IMPRESSION: 1. Cardiomegaly with improving volume overload/congestive change and decreasing pulmonary edema. 2. Trace pleural effusions. Electronically signed by: Alex Ross M.D. 09/17/2018 10:59 AM
--- NOTE | 2018-09-17 20:02 | Hospitalist Progress Note ---
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 Cont IV lasix twice a day. BMP in am. Daily weights. Fluid restriction. Not a candidate for JACQUE/ARB due to critical and low BP. Appreciate cardiology consultation. s/p cath this admission - CAD present but stents are patent. Cath confirmed severity of . Severe and a. fib/flutter likely contributed to development of systolic CHF. Repeat cxr today to ensure no other process contributing to o2 requirement. (2) Acute respiratory failure with hypoxia: 2nd to decompensated CHF. Continue diuresis. Improving. Wean O2 as tolerated if sats are >90%. Repeat cxr today. (3) Hypothyroidism: Decompensated. Last 2 TSHs >25. Likely playing a role in his decompensated CHF as well. Dose of synthroid increased to 50mcg daily this admission. Will need repeat TSH in 4-6 weeks. (4) Pulmonary hypertension: mild to moderate pulmonary hypertension assess need for home O2 at discharge (5) Atrial flutter with rapid ventricular response: Cont digoxin and beta salbador. Controlled. He is not on anticoagulation due to severe GI bleeding in the past. (6) Coagulopathy: 2nd to hepatic congestion from CHF? vitamin K deficiency? INR remains at 1.5 consider vitamin K supplementation repeat INR in AM (7) Aortic stenosis: severe/critical. needs TAVR evaluation at tertiary care center when able. (8) CAD in [place] artery: s/p cath this admission with patent stents continue BB, statin, asa (9) DVT prophylaxis: heparin 5000 BID cautiously in light of coagulopathy OT, PT evals appreciated; needs rehab daughter updated by phone 09/15/18 awaiting auth for rehab Subjective feels good, no complaints still requiring O2 - staff have attempted multiple times to wean such w/o success tele - NSR with a. fib; rates for latter have been much better however Constitutional: no fever Respiratory: no cough and no dyspnea Cardiovascular: no chest pain Gastrointestinal: no abdominal pain Physical Exam 2 Vital Signs (Past 24 Hours): Last Vital Signs Temp 36.4 C L 09/17/18 18:43 Pulse 65 09/17/18 18:43 Resp 16 09/17/18 18:43 BP 94/59 L 09/17/18 18:43 Pulse Ox 98 02/21/19 18:43 Constitutional: well developed and well nourished; no acute distress ENMT: external ear and nose normal, oropharynx normal Respiratory: Auscultation: + crackles (bases, L>R, improved); no rhonchi and no wheezes Cardiovascular: Rate/Rhythm: regular rate; + abnormal rhythm (irregular) Heart Sounds: normal S1 and normal S2 Vessels: posterior tibial pulses present and dorsalis pedis pulses present; no JVD Extremities: + edema ( trace b/l ) Psychiatric: A+Ox3, euthymic affect Results & Data Laboratory Results Laboratory Results - last 24 hr 09/17/18 09/17/18 05:17 05:17 WBC 4.81 RBC 3.78 L Hgb 10.5 L Hct 34.6 L MCV 91.5 MCH 27.8 MCHC 30.3 L RDW Std Deviation 55.5 H RDW Coeff of Jessica 16.5 H Plt Count 160 MPV 10.7 H Sodium 135 L Potassium 4.2 Chloride 91 L Carbon Dioxide 42 H* Anion Gap 2.0 L BUN 21 H Creatinine 0.85 Est Cr Clr Drug Dosing 75.3 Est GFR ( Amer) 99.5 Est GFR (Non-Af Amer) 85.8 BUN/Creatinine Ratio 24.4 H Glucose 92 Calcium 8.5 _ (1) Aortic stenosis Cardiac valve disease etiology: etiology unspecified Qualified Code(s): I35.0 - Nonrheumatic aortic (valve) stenosis (2) Hypothyroidism Hypothyroidism type: acquired Qualified Code(s): E03.9 - Hypothyroidism, unspecified
[2018-09-17] MEDS: PANTOprazole 40 MG TAB PO SCH (20:40)
[2018-09-17] MEDS: DOCUSATE SODIUM/SENNA 50/8.6MG TAB PO SCH (20:41)
[2018-09-17] MEDS: SERTRALINE HCL 50 MG TABLET PO SCH (20:41)
[2018-09-17] MEDS: ATORVASTATIN 40 MG TAB PO SCH (20:42)
[2018-09-17] MEDS: METOPROLOL SUCC 25MG EXT REL TAB PO SCH (20:42)
[2018-09-18] MEDS: LEVOTHYROXINE SODIUM 50 MCG TABLET PO SCH (06:08)
[2018-09-18 07:11] LABS: BUN Creatinine Ratio 23.9 (10-20); Calcium 8.2 mg/dl (8.5-10.1); Creatinine Clr Calc Pharmacy 77.4 ml/min; Est GFR (African American) 103.1; Est GFR (Non-African American) 88.9; Potassium 4.2 mmol/L (3.5-5.1)
[2018-09-18] MEDS: ASPIRIN 81 MG ECTAB PO SCH (08:38)
[2018-09-18] MEDS: FUROSEMIDE 20 MG in SYRINGE 0 ML IV SCH ×2 (08:38→17:33)
[2018-09-18] MEDS: MAGNESIUM OXIDE 400 MG TAB PO SCH ×2 (08:38→20:44)
[2018-09-18] MEDS: HEPARIN SOD 5,000 UNIT/0.5 ML VIAL SQ SCH ×2 (08:39→20:43)
[2018-09-18] MEDS: DIGOXIN 0.125 MG TAB PO SCH (08:39)
--- NOTE | 2018-09-18 12:46 | Cardiology Progress Note ---
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 Low gradient severe 3. Severe LV dysfunction, EF 20-25% 4. Paroxysmal AF/?flutter 5. Hypotension 6. Hypothyroidism 7. Anemia 8. History of GI bleed 9. Frailty Patient has not any recurrent chest discomfort. On exam he is well perfused without significant congestion. He has a negative fluid balance. Renal function and electrolytes are stable. BP is stable and HR has improved. -- continue ongoing diuresis, consider transition to PO diuretics. Daily weights. Low sodium diet. -- continue current digoxin, metoprolol as BP allows -- continue ASA/statin -- no anticoagulation with prior GI bleeding and profound blood loss anemia -- TAVR evaluation as outpatient Supervising Physician Co-Signing Physician Notes Patient seen and examined. Agree with assessment and plan as outlined by physician assistant center manager Bonnie Ruiz. Rate control improved. Primarily in sinus. Blood pressure stable. Patient awaiting transfer to rehab facility. TAVR evaluation as an outpatient. Subjective No acute complaints. Has been up walking without recurrent chest pain. No shortness of breath, orthopnea or PND. No lightheadedness, near syncope or syncope. Tele reviewed --sinus rhythm with periods of afib vs atrial tachycardia but HR improved with highest rates in low 100s Physical Exam 2 Vital Signs (Past 24 Hours): Last Vital Signs Temp 36.9 C 09/18/18 12:00 Pulse 55 L 09/18/18 12:00 Resp 18 09/18/18 12:00 BP 92/53 L 09/18/18 12:00 Pulse Ox 90 09/18/18 12:00 Physical Exam: General: Comfortable, no acute distress. HEENT: PERRLA. EOMI. Sclerae anicteric. Neck: No JVD. Lungs: Clear to auscultation bilaterally without rales, rhonchi or wheezes. Cardiac: Regular rate and rhythm. Grade 3/6 systolic ejection murmur best heard at RUSB. Abdomen: Soft and nontender. Bowel sounds present. No abdominal bruit. Extremities: Trace pretibial edema bilaterally. Radial pulses 2+ bilaterally, diminished DP/PT pulses bilaterally. No ulcerations. Results & Data Laboratory Results Laboratory Results - last 24 hr 09/18/18 06:04 Sodium 136 Potassium 4.2 Chloride 91 L Carbon Dioxide 43 H* Anion Gap 2.0 L BUN 19 H Creatinine 0.78 Est Cr Clr Drug Dosing 77.4 Est GFR ( Amer) 103.1 Est GFR (Non-Af Amer) 88.9 BUN/Creatinine Ratio 23.9 H Glucose 83 Calcium 8.2 L Magnesium 2.0
--- NOTE | 2018-09-18 18:34 | Hospitalist Progress Note ---
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 Continues to diurese with BID lasix IV. Weight slowly trending down. Still needing mild amount of NC O2. BMP in am. Not a candidate for JACQUE/ARB due to critical and low BP. Appreciate cardiology consultation. s/p cath this admission - CAD present but stents are patent. Cath confirmed severity of . Chest x-ray yesterday with improved pulmonary edema and no other pathology. (2) Acute respiratory failure with hypoxia: 2nd to decompensated CHF. Continue diuresis. Wean O2 as tolerated if sats are >90%. (3) Hypothyroidism: Decompensated. Last 2 TSHs >25. Likely playing a role in his decompensated CHF as well. Dose of synthroid increased to 50mcg daily this admission. Will need repeat TSH in 4-6 weeks. (4) Pulmonary hypertension: mild to moderate pulmonary hypertension assess need for home O2 at discharge if he continues to require O2 despite diuresis (5) Atrial flutter with rapid ventricular response: Cont digoxin and beta salbador. Controlled. He has remained in NSR for much of the last 24 hours. He is not on anticoagulation due to severe GI bleeding in the past. (6) Coagulopathy: 2nd to hepatic congestion from CHF? vitamin K deficiency? repeat INR in am if still high then will administer vitamin K (7) Aortic stenosis: severe/critical. needs TAVR evaluation at tertiary care center when able. (8) CAD in [place] artery: s/p cath this admission with patent stents continue BB, statin, asa (9) DVT prophylaxis: heparin 5000 BID cautiously in light of coagulopathy OT, PT evals appreciated; needs rehab daughter updated by phone 09/15/18 and 09/18/18 awaiting auth for rehab - Friday? Subjective pt w/o complaints still needing 2 L NC O2 tele with mainly NSR overnight; minimal a. fib/flutter no new complaints willing to go to rehab Respiratory: no cough and no dyspnea Cardiovascular: no chest pain, no dyspnea on exertion, no orthopnea and no paroxysmal nocturnal dyspnea Gastrointestinal: no abdominal pain Physical Exam 2 Vital Signs (Past 24 Hours): Last Vital Signs Temp 36.7 C 09/18/18 15:10 Pulse 60 09/18/18 15:10 Resp 16 09/18/18 15:10 BP 102/68 09/18/18 15:10 Pulse Ox 98 09/18/18 15:10 Constitutional: well developed and well nourished; no acute distress ENMT: external ear and nose normal, oropharynx normal Respiratory: Auscultation: + crackles (none on right, mild on left ); no rhonchi and no wheezes Cardiovascular: Rate/Rhythm: regular rate; + abnormal rhythm (irregular) Heart Sounds: normal S1, normal S2 and + murmur (3/6 holosystolic apex and RUSB ; gallop present, s3 ) Vessels: posterior tibial pulses present and dorsalis pedis pulses present; no JVD Extremities: + edema (trace b/l ) Psychiatric: A+Ox3, euthymic affect Results & Data Laboratory Results Laboratory Results - last 24 hr 09/18/18 06:04 Sodium 136 Potassium 4.2 Chloride 91 L Carbon Dioxide 43 H* Anion Gap 2.0 L BUN 19 H Creatinine 0.78 Est Cr Clr Drug Dosing 77.4 Est GFR ( Amer) 103.1 Est GFR (Non-Af Amer) 88.9 BUN/Creatinine Ratio 23.9 H Glucose 83 Calcium 8.2 L Magnesium 2.0 _ (1) Hypothyroidism Hypothyroidism type: acquired Qualified Code(s): E03.9 - Hypothyroidism, unspecified (2) Aortic stenosis Cardiac valve disease etiology: etiology unspecified Qualified Code(s): I35.0 - Nonrheumatic aortic (valve) stenosis
[2018-09-18] MEDS: METOPROLOL SUCC 25MG EXT REL TAB PO SCH (20:40)
[2018-09-18] MEDS: SERTRALINE HCL 50 MG TABLET PO SCH (20:43)
[2018-09-18] MEDS: PANTOprazole 40 MG TAB PO SCH (20:43)
[2018-09-18] MEDS: DOCUSATE SODIUM/SENNA 50/8.6MG TAB PO SCH (20:43)
[2018-09-18] MEDS: ATORVASTATIN 40 MG TAB PO SCH (20:43)
[2018-09-19] MEDS: LEVOTHYROXINE SODIUM 50 MCG TABLET PO SCH (06:07)
[2018-09-19 06:13] LABS: INR 1.5 (0.9-1.1); Prothrombin Time 14.5 Seconds (9.0-12.0)
[2018-09-19 06:38] LABS: BUN Creatinine Ratio 28.4 (10-20); Calcium 8.3 mg/dl (8.5-10.1); Creatinine Clr Calc Pharmacy 82.6 ml/min; Est GFR (African American) 103.6; Est GFR (Non-African American) 89.4; Potassium 4.3 mmol/L (3.5-5.1)
[2018-09-19] MEDS: FUROSEMIDE 20 MG in SYRINGE 0 ML IV SCH ×2 (07:30→17:12)
[2018-09-19] MEDS: MAGNESIUM OXIDE 400 MG TAB PO SCH ×2 (07:31→21:00)
[2018-09-19] MEDS: METOPROLOL SUCC 25MG EXT REL TAB PO SCH (07:31)
[2018-09-19] MEDS: ASPIRIN 81 MG ECTAB PO SCH (07:31)
[2018-09-19] MEDS: DIGOXIN 0.125 MG TAB PO SCH (07:33)
[2018-09-19] MEDS: HEPARIN SOD 5,000 UNIT/0.5 ML VIAL SQ SCH ×2 (09:00→21:02)
[2018-09-19] MEDS ORDERED: PHYTONADIONE 5 MG TAB PO ONE (10:00)
--- NOTE | 2018-09-19 19:42 | Hospitalist Progress Note ---
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 Still requiring NC O2. Thus, continue IV lasix. MM in mouth look slightly dry today; suspect we are nearing euvolemia. Office weights reviewed -- in 06/14 he was 159 pounds. Today he is 152. BMP in am. Not a candidate for JACQUE/ARB due to critical and low BP. Cont BB. Appreciate cardiology consultation. s/p cath this admission - CAD present but stents are patent. Cath confirmed severity of . Present on Admission?: Yes (2) Acute respiratory failure with hypoxia: Improved. 2nd to decompensated CHF. Continue diuresis. Wean O2 as tolerated if sats are >90%. (3) Hypothyroidism: Decompensated. Last 2 TSHs >25. Likely playing a role in his decompensated CHF as well. Dose of synthroid increased to 50mcg daily this admission. Will need repeat TSH in 4-6 weeks. (4) Pulmonary hypertension: mild to moderate pulmonary hypertension assess need for home O2 at discharge if he continues to require O2 despite diuresis (5) Atrial flutter with rapid ventricular response: Cont digoxin and beta salbador. Controlled. He has remained in NSR for much of the last 48 hours. He is not on anticoagulation due to severe GI bleeding in the past. (6) Coagulopathy: 2nd to hepatic congestion from CHF? vitamin K deficiency? repeat INR still high - give vitamin K 5mg po x 1; repeat INR in am (7) Aortic stenosis: severe/critical. needs TAVR evaluation at tertiary care center when able. (8) CAD in [place] artery: s/p cath this admission with patent stents continue BB, statin, asa (9) DVT prophylaxis: heparin 5000 BID cautiously in light of coagulopathy OT, PT evals appreciated; needs rehab daughter updated by phone 09/15/18 and 09/18/18 hopefully to rehab on Friday Subjective tele - mainly NSR; occasional a. fib feels good no complaints no dyspnea, PND, orthopnea still requiring NC O2 however Respiratory: no cough Cardiovascular: no chest pain Gastrointestinal: no abdominal pain Physical Exam 2 Vital Signs (Past 24 Hours): Last Vital Signs Temp 36.9 C 09/19/18 19:39 Pulse 62 09/19/18 19:39 Resp 16 09/19/18 19:39 BP 95/59 L 09/19/18 19:39 Pulse Ox 96 09/19/18 19:39 Constitutional: well developed and well nourished; no acute distress ENMT: external ear and nose normal, oropharynx normal Respiratory: normal respiratory effort Auscultation: + crackles (scattered bases); no rhonchi and no wheezes Cardiovascular: Rate/Rhythm: regular rate and regular rhythm Heart Sounds: normal S1, normal S2 and + murmur (3/6 holosystolic apex and RUSB; gallop present, s3 ) Vessels: posterior tibial pulses present and dorsalis pedis pulses present; no JVD Extremities: + edema (trace b/l ) Psychiatric: A+Ox3, euthymic affect Results & Data Laboratory Results Laboratory Results - last 24 hr 09/19/18 09/19/18 05:21 05:21 PT 14.5 H INR 1.5 H Sodium 136 Potassium 4.3 Chloride 91 L Carbon Dioxide 42 H* Anion Gap 3.0 BUN 22 H Creatinine 0.77 Est Cr Clr Drug Dosing 82.6 Est GFR ( Amer) 103.6 Est GFR (Non-Af Amer) 89.4 BUN/Creatinine Ratio 28.4 H Glucose 85 Calcium 8.3 L _ (1) Hypothyroidism Hypothyroidism type: acquired Qualified Code(s): E03.9 - Hypothyroidism, unspecified (2) Aortic stenosis Cardiac valve disease etiology: etiology unspecified Qualified Code(s): I35.0 - Nonrheumatic aortic (valve) stenosis
[2018-09-19] MEDS: MAGNESIUM HYDROXIDE SUSP 30 ML UDC PO PRN (19:52)
[2018-09-19] MEDS: DOCUSATE SODIUM/SENNA 50/8.6MG TAB PO SCH (21:00)
[2018-09-19] MEDS: PANTOprazole 40 MG TAB PO SCH (21:00)
[2018-09-19] MEDS: ATORVASTATIN 40 MG TAB PO SCH (21:00)
[2018-09-19] MEDS: SERTRALINE HCL 50 MG TABLET PO SCH (21:00)
[2018-09-20] MEDS: ACETAMINOPHEN 325 MG TAB PO PRN (03:38)
[2018-09-20] MEDS: LEVOTHYROXINE SODIUM 50 MCG TABLET PO SCH (05:44)
[2018-09-20 06:04] LABS: INR 1.4 (0.9-1.1); Prothrombin Time 14.4 Seconds (9.0-12.0)
[2018-09-20 06:41] LABS: BUN Creatinine Ratio 29.5 (10-20); Calcium 8.1 mg/dl (8.5-10.1); Est GFR (African American) 103.6; Est GFR (Non-African American) 89.4; Magnesium 2.3 mg/dl (1.8-2.4); Potassium 4.3 mmol/L (3.5-5.1)
[2018-09-20] MEDS: DIGOXIN 0.125 MG TAB PO SCH (07:27)
[2018-09-20] MEDS: ASPIRIN 81 MG ECTAB PO SCH (07:29)
[2018-09-20] MEDS: METOPROLOL SUCC 25MG EXT REL TAB PO SCH (07:30)
[2018-09-20] MEDS: MAGNESIUM OXIDE 400 MG TAB PO SCH ×2 (07:32→20:08)
[2018-09-20] MEDS: HEPARIN SOD 5,000 UNIT/0.5 ML VIAL SQ SCH ×2 (07:32→20:11)
[2018-09-20] MEDS: FUROSEMIDE 20 MG in SYRINGE 0 ML IV SCH ×2 (10:44→16:08)
[2018-09-20] MEDS ORDERED: PHYTONADIONE 5 MG TAB PO STA (19:48)
--- NOTE | 2018-09-20 19:55 | Hospitalist Progress Note ---
Date of Service September 20, 2018 Assessment & Plan (1) Acute on chronic combined systolic and diastolic congestive heart failure due to valvular disease: Patient likely slightly dry today based on his exam. Will stop IV lasix today. Reassess clinically and with labs in am. Office weights reviewed -- in 06/14 he was 159 pounds. Today he is 151 pounds. Not a candidate for JACQUE/ARB due to critical and low BP. Cont BB. Appreciate cardiology consultation. s/p cath this admission - CAD present but stents are patent. Cath confirmed severity of . (2) Acute respiratory failure with hypoxia: Improved. Still requiring NC O2, however. During my visit today I took off his O2 and 5 minutes later sats were about 80%. Despite the hypoxia he had no increased work of breathing or any symptoms. This would argue that the hypoxia is likely chronic. Pulmonary HTN? COPD (prior CTs with emphysema)? VTE? combination? will likely need O2 at d/c. (3) Hypothyroidism: Decompensated. Last 2 TSHs >25. Likely playing a role in his decompensated CHF as well. Dose of synthroid increased to 50mcg daily this admission. Will need repeat TSH in 4-6 weeks. (4) Pulmonary hypertension: mild to moderate pulmonary hypertension on echos may be contributing to NC O2 requirement (5) Atrial flutter with rapid ventricular response: Cont digoxin and beta salbador. Controlled. He has remained in NSR for much of the last 72 hours. He is not on anticoagulation due to severe GI bleeding in the past. (6) Coagulopathy: 2nd to hepatic congestion from CHF? vitamin K deficiency? gave 5mg of vit K x 1 on 09/19 INR today 1.4 will give additional vit K and repeat the INR on 09/21 (7) Aortic stenosis: severe/critical. needs TAVR evaluation at tertiary care center [facility] after d/c. (8) CAD in [place] artery: s/p cath this admission with patent stents continue BB, statin, asa (9) DVT prophylaxis: heparin 5000 BID cautiously in light of coagulopathy OT, PT evals appreciated; needs rehab daughter updated by phone 09/15/18 and 09/18/18 and at bedside 09/20 hopefully to rehab on Friday Subjective like previous visits he denies any complaints during the visit his daughter was at bedside she reports he was a very heavy smoker for many years quit several years ago no formal dx of COPD tele stable overnight; mainly NSR once again still on NC O2 Constitutional: no fever Respiratory: no cough, no dyspnea, no dyspnea on exertion and no wheezing Cardiovascular: no chest pain Gastrointestinal: no abdominal pain Physical Exam 2 Vital Signs (Past 24 Hours): Last Vital Signs Temp 36.7 C 09/20/18 19:13 Pulse 67 09/20/18 19:13 Resp 21 09/20/18 19:13 BP 102/67 09/20/18 19:13 Pulse Ox 93 09/20/18 19:13 Constitutional: well developed and well nourished; no acute distress ENMT: Mouth: + dry oral mucous membranes Respiratory: normal respiratory effort Auscultation: + crackles (scant - left base only); no rhonchi and no wheezes Cardiovascular: Rate/Rhythm: regular rate and regular rhythm Heart Sounds: normal S1, normal S2 and + murmur (3/6 holosystolic apex and RUSB) Vessels: posterior tibial pulses present and dorsalis pedis pulses present; no JVD Extremities: no edema Skin: poor skin turgor Psychiatric: A+Ox3, euthymic affect Results & Data Laboratory Results Laboratory Results - last 24 hr 09/20/18 09/20/18 05:16 05:16 PT 14.4 H INR 1.4 H Sodium 135 L Potassium 4.3 Chloride 91 L Carbon Dioxide 42 H* Anion Gap 2.0 L BUN 23 H Creatinine 0.77 Est Cr Clr Drug Dosing 82.0 Est GFR ( Amer) 103.6 Est GFR (Non-Af Amer) 89.4 BUN/Creatinine Ratio 29.5 H Glucose 91 Calcium 8.1 L Magnesium 2.3 _ (1) Hypothyroidism Hypothyroidism type: acquired Qualified Code(s): E03.9 - Hypothyroidism, unspecified (2) Aortic stenosis Cardiac valve disease etiology: etiology unspecified Qualified Code(s): I35.0 - Nonrheumatic aortic (valve) stenosis
[2018-09-20] MEDS: PANTOprazole 40 MG TAB PO SCH (20:07)
[2018-09-20] MEDS: ATORVASTATIN 40 MG TAB PO SCH (20:07)
[2018-09-20] MEDS: SERTRALINE HCL 50 MG TABLET PO SCH (20:07)
[2018-09-20] MEDS: DOCUSATE SODIUM/SENNA 50/8.6MG TAB PO SCH (20:08)
[2018-09-21] MEDS: LEVOTHYROXINE SODIUM 50 MCG TABLET PO SCH ×2 (05:57→21:32)
[2018-09-21 06:16] LABS: INR 1.4 (0.9-1.1); Prothrombin Time 13.9 Seconds (9.0-12.0)
[2018-09-21 06:43] LABS: BUN Creatinine Ratio 32.8 (10-20); Calcium 8.2 mg/dl (8.5-10.1); Creatinine Clr Calc Pharmacy 149.6 ml/min; Est GFR (African American) 104.7; Est GFR (Non-African American) 90.4; Potassium 4.3 mmol/L (3.5-5.1)
[2018-09-21] MEDS: ASPIRIN 81 MG ECTAB PO SCH (08:11)
[2018-09-21] MEDS: MAGNESIUM OXIDE 400 MG TAB PO SCH ×2 (08:11→21:31)
[2018-09-21] MEDS: HEPARIN SOD 5,000 UNIT/0.5 ML VIAL SQ SCH ×2 (08:12→21:32)
[2018-09-21] MEDS: DIGOXIN 0.125 MG TAB PO SCH (08:15)
--- NOTE | 2018-09-21 21:23 | Hospitalist Progress Note ---
Date of Service September 21, 2018 Assessment & Plan (1) Acute on chronic combined systolic and diastolic congestive heart failure due to valvular disease: Euvolemic, much improved, has diuresed 9 L this admission despite the fact that his weights have stayed relatively stable IV Lasix has been stopped Office weights reviewed -- in 06/14 he was 159 pounds. Today he is 151 pounds. Not a candidate for JACQUE/ARB due to critical and low BP. Cont BB. Appreciate cardiology consultation. s/p cath this admission - CAD present but stents are patent. Cath confirmed severity of . (2) Acute respiratory failure with hypoxia: Improved. Still requiring NC O2, however. hypoxia is likely chronic Pulmonary HTN? COPD (prior CTs with emphysema)? VTE? combination? will likely need O2 at d/c. (3) Hypothyroidism: Decompensated. Last 2 TSHs >25. Likely playing a role in his decompensated CHF as well. Dose of synthroid increased to 50mcg daily this admission. Will need repeat TSH in 4-6 weeks. (4) Pulmonary hypertension: mild to moderate pulmonary hypertension on echos may be contributing to NC O2 requirement (5) Atrial flutter with rapid ventricular response: Cont digoxin and beta salbador. Controlled. He has remained in NSR for much of the last 72 hours. He is not on anticoagulation due to severe GI bleeding in the past. (6) Coagulopathy: 2nd to hepatic congestion from CHF? vitamin K deficiency? gave 5mg of vit K x 1 on 09/19 and on 09/21 INR today 1.4 and stable (7) Aortic stenosis: severe/critical. needs TAVR evaluation at tertiary care center [facility] after d/c. (8) CAD in [place] artery: s/p cath this admission with patent stents continue BB, statin, asa (9) DVT prophylaxis: heparin 5000 BID cautiously in light of coagulopathy OT, PT evals appreciated; needs rehab Disposition-awaiting authorization for SNF placement Subjective Patient has no complaints is feeling well, is tolerating p.o. Denies chest pain or shortness of breath, he has diuresed quite a bit. Telemetry with normal sinus rhythm for several days now with PVCs, rates in the 60s-70s. Review of Systems All systems reviewed & are unremarkable except as noted in HPI & below Physical Exam 2 Vital Signs (Past 24 Hours): Last Vital Signs Temp 36.5 C 09/21/18 18:46 Pulse 69 09/21/18 18:46 Resp 18 09/21/18 18:46 BP 93/65 L 09/21/18 18:46 Pulse Ox 98 09/21/18 18:46 Constitutional: WD/WN, vitals as above Eyes: PERRL, conjunctivae normal, anicteric sclerae ENMT: external ear and nose normal, oropharynx normal Neck: trachea midline, no thyromegaly Respiratory: normal respiratory effort, lungs clear to auscultation Cardiovascular: Rate/Rhythm: regular rate and regular rhythm Heart Sounds: + murmur (3/6 NAYANA at the RUSB) Extremities: + edema (trace-1+ pitting edema of the bilateral legs to the knees much improved from previous) Gastrointestinal (Abdomen): normal bowel sounds, soft, nontender, no hepatosplenomegaly Musculoskeletal: Extremities: extremities normal to inspection; no cyanosis and no clubbing Skin: no rashes, warm and dry + erythema (Mild erythema in the anterior tibia bilaterally that appears chronic) Neurologic: moves all extremities and awake; no focal motor deficits Psychiatric: Orientation: alert, oriented to person, oriented to place and cooperative Results & Data Laboratory Results 09/21/18 09/21/18 Range/Units 05:32 05:32 PT 13.9 H (9.0-12.0) Seconds INR 1.4 H (0.9-1.1) Sodium 135 L (136-145) mmol/L Potassium 4.3 (3.5-5.1) mmol/L Chloride 94 L (98-107) mmol/L Carbon Dioxide 41 H* (21-32) mmol/L Anion Gap 0 L (3-11) BUN 25 H (7-18) mg/dl Creatinine 0.75 (0.6-1.4) mg/dl Est Cr Clr Drug Dosing 149.6 ml/min Est GFR ( Amer) 104.7 Est GFR (Non-Af Amer) 90.4 BUN/Creatinine Ratio 32.8 H (10-20) Glucose 89 (70-99) mg/dl Calcium 8.2 L (8.5-10.1) mg/dl _ (1) Aortic stenosis Cardiac valve disease etiology: etiology unspecified Qualified Code(s): I35.0 - Nonrheumatic aortic (valve) stenosis (2) Hypothyroidism Hypothyroidism type: acquired Qualified Code(s): E03.9 - Hypothyroidism, unspecified
[2018-09-21] MEDS: ATORVASTATIN 40 MG TAB PO SCH (21:31)
[2018-09-21] MEDS: SERTRALINE HCL 50 MG TABLET PO SCH (21:31)
[2018-09-21] MEDS: DOCUSATE SODIUM/SENNA 50/8.6MG TAB PO SCH (21:31)
[2018-09-21] MEDS: METOPROLOL SUCC 25MG EXT REL TAB PO SCH (21:31)
[2018-09-21] MEDS: PANTOprazole 40 MG TAB PO SCH (21:32)
[2018-09-22] MEDS: LEVOTHYROXINE SODIUM 50 MCG TABLET PO SCH (06:07)
[2018-09-22 07:17] LABS: BUN Creatinine Ratio 28.3 (10-20); Calcium 8.3 mg/dl (8.5-10.1); Creatinine Clr Calc Pharmacy 86.2 ml/min; Est GFR (African American) 106.5; Est GFR (Non-African American) 91.9; Magnesium 2.3 mg/dl (1.8-2.4); Potassium 4.4 mmol/L (3.5-5.1)
[2018-09-22] MEDS: HEPARIN SOD 5,000 UNIT/0.5 ML VIAL SQ SCH ×2 (08:22→20:00)
[2018-09-22] MEDS: MAGNESIUM OXIDE 400 MG TAB PO SCH ×2 (08:22→19:59)
[2018-09-22] MEDS: ASPIRIN 81 MG ECTAB PO SCH (08:22)
[2018-09-22] MEDS: DIGOXIN 0.125 MG TAB PO SCH (08:23)
[2018-09-22] MEDS: PANTOprazole 40 MG TAB PO SCH (19:59)
[2018-09-22] MEDS: METOPROLOL SUCC 25MG EXT REL TAB PO SCH (19:59)
[2018-09-22] MEDS: SERTRALINE HCL 50 MG TABLET PO SCH (19:59)
[2018-09-22] MEDS: DOCUSATE SODIUM/SENNA 50/8.6MG TAB PO SCH (19:59)
[2018-09-22] MEDS: ATORVASTATIN 40 MG TAB PO SCH (19:59)
[2018-09-23] MEDS: LEVOTHYROXINE SODIUM 50 MCG TABLET PO SCH (06:00)
--- NOTE | 2018-09-23 06:38 | Hospitalist Progress Note ---
Date of Service September 22, 2018 Assessment & Plan (1) Acute on chronic combined systolic and diastolic congestive heart failure due to valvular disease: Euvolemic, much improved, has diuresed 9 L this admission despite the fact that his weights have stayed relatively stable although it is down about 2 kg overall IV Lasix has been stopped -Start Lasix 40 mg p.o. once daily in the morning and watch his blood pressures Not a candidate for JACQUE/ARB due to critical and low BP. Cont BB. Appreciate cardiology consultation. s/p cath this admission - CAD present but stents are patent. Cath confirmed severity of . (2) Acute respiratory failure with hypoxia: Improved. Still requiring NC O2, however. hypoxia is likely chronic Pulmonary HTN? COPD (prior CTs with emphysema)? VTE? combination? will likely need O2 at d/c. (3) Hypothyroidism: Decompensated. Last 2 TSHs >25. Likely playing a role in his decompensated CHF as well. Dose of synthroid increased to 50mcg daily this admission. Will need repeat TSH in 4-6 weeks. (4) Pulmonary hypertension: mild to moderate pulmonary hypertension on echos may be contributing to NC O2 requirement (5) Atrial flutter with rapid ventricular response: Normal sinus rhythm for 4 days Cont digoxin and beta salbador. Controlled. He is not on anticoagulation due to severe GI bleeding in the past. (6) Coagulopathy: 2nd to hepatic congestion from CHF? vitamin K deficiency? gave 5mg of vit K x 1 on 09/19 and on 09/21 INR then 1.4 (7) Aortic stenosis: severe/critical. needs TAVR evaluation at tertiary care center within the next 2-4 weeks after d/c. (8) CAD in [place] artery: s/p cath this admission with patent stents continue BB, statin, asa (9) DVT prophylaxis: heparin 5000 BID cautiously in light of coagulopathy This position OT, PT evals appreciated; needs rehab-did appear to peer review with his insurance company for acute rehab today which ended up taking all day to get denied and there was not enough time left in the day to get an authorization for senior care facility due to insurance company not getting back to us. Patient will stay another day and await authorization for SNF placement Subjective Patient feeling a little short of breath with ambulation today. But feels it is better than yesterday. He has no other complaints. Telemetry with normal sinus rhythm, PACs and PVCs with some bigeminy overnight. Otherwise awaiting rehab placement Review of Systems All systems reviewed & are unremarkable except as noted in HPI & below Physical Exam Vital Signs (Past 24 Hours): Last Vital Signs Temp 36.6 C 09/23/18 03:42 Pulse 57 L 09/23/18 03:42 Resp 18 09/22/18 23:06 BP 95/55 L 09/23/18 03:42 Pulse Ox 94 09/23/18 03:42 Constitutional: WD/WN, vitals as above Eyes: PERRL, conjunctivae normal, anicteric sclerae ENMT: external ear and nose normal, oropharynx normal Neck: trachea midline, no thyromegaly Respiratory: normal respiratory effort, lungs clear to auscultation Cardiovascular: Rate/Rhythm: regular rate and regular rhythm Heart Sounds: + murmur (3/6 NAYANA at the RUSB) Extremities: + edema (trace-1+ pitting edema of the bilateral legs to the knees much improved from previous) Gastrointestinal (Abdomen): normal bowel sounds, soft, nontender, no hepatosplenomegaly Musculoskeletal: Extremities: extremities normal to inspection; no cyanosis and no clubbing Skin: no rashes, warm and dry + erythema (Mild erythema in the anterior tibia bilaterally that appears chronic) Neurologic: moves all extremities and awake; no focal motor deficits Psychiatric: Orientation: alert, oriented to person, oriented to place and cooperative Results & Data Laboratory Results 09/22/18 Range/Units 05:53 Sodium 135 L (136-145) mmol/L Potassium 4.4 (3.5-5.1) mmol/L Chloride 95 L (98-107) mmol/L Carbon Dioxide 39 H (21-32) mmol/L Anion Gap 1.0 L (3-11) BUN 20 H (7-18) mg/dl Creatinine 0.72 (0.6-1.4) mg/dl Est Cr Clr Drug Dosing 86.2 ml/min Est GFR ( Amer) 106.5 Est GFR (Non-Af Amer) 91.9 BUN/Creatinine Ratio 28.3 H (10-20) Glucose 85 (70-99) mg/dl Calcium 8.3 L (8.5-10.1) mg/dl Magnesium 2.3 (1.8-2.4) mg/dl (1) Hypothyroidism Hypothyroidism type: acquired Qualified Code(s): E03.9 - Hypothyroidism, unspecified (2) Aortic stenosis Cardiac valve disease etiology: etiology unspecified Qualified Code(s): I35.0 - Nonrheumatic aortic (valve) stenosis
[2018-09-23] MEDS: DIGOXIN 0.125 MG TAB PO SCH (08:05)
[2018-09-23] MEDS: MAGNESIUM OXIDE 400 MG TAB PO SCH ×2 (08:05→21:08)
[2018-09-23] MEDS: ASPIRIN 81 MG ECTAB PO SCH (08:06)
[2018-09-23] MEDS: HEPARIN SOD 5,000 UNIT/0.5 ML VIAL SQ SCH (08:10)
[2018-09-23] MEDS: FUROSEMIDE 40 MG TAB PO SCH (08:10)
[2018-09-23 09:03] LABS: Basophils # (auto) 0.02 K/uL (0-0.2); Basophils % (auto) 0.5 %; Eosinophils # (auto) 0.17 K/uL (0-0.5); Eosinophils % (auto) 4.5 %; Hematocrit (blood only) 25.9 % (42-52); Immature Granulocytes # (auto) 0.01 K/uL (0.00-0.02); Immature Granulocytes % (auto) 0.3 %; Lymphocytes # (auto) 0.38 K/uL (1.2-3.4); Lymphocytes % (auto) 10.1 %; Mean Corpuscular Hgb Conc 30.9 g/dL (32-36); Mean Corpuscular Volume 91.5 fL (80-100); Mean Platelet Volume 9.9 fL (7.4-10.4); Monocytes # (auto) 0.32 K/uL (0.11-0.59); Monocytes % (auto) 8.5 %; Neutrophils # (auto) 2.86 K/uL (1.4-6.5); Neutrophils % (auto) 76.1 %; Platelet Count 156 K/uL (130-400); RDW Coefficient of Variation 17.5 % (11.5-14.5); RDW Standard Deviation 56.7 fL (36.4-46.3); Red Blood Count 2.83 M/uL (4.7-6.1); White Blood Count 3.76 K/uL (4.8-10.8)
[2018-09-23 09:13] LABS: INR 1.4 (0.9-1.1); Prothrombin Time 13.9 Seconds (9.0-12.0)
[2018-09-23 09:38] LABS: BUN Creatinine Ratio 34.5 (10-20); Calcium 8.1 mg/dl (8.5-10.1); Creatinine Clr Calc Pharmacy 87.9 ml/min; Est GFR (African American) 107.8; Magnesium 2.3 mg/dl (1.8-2.4); Potassium 4.3 mmol/L (3.5-5.1)
[2018-09-23 09:48] LABS: Ovalocytes 1+
[2018-09-23] MEDS ORDERED: PHYTONADIONE 5 MG TAB PO STA (10:21)
[2018-09-23 10:47] LABS: Hematocrit (blood only) 26.4 % (42-52); Hemoglobin 8.2 g/dL (14.0-18.0)
--- NOTE | 2018-09-23 11:09 | Hospitalist Progress Note ---
Date of Service September 23, 2018 Assessment & Plan (1) Anemia: With acute drop in hgb since 6 days ago from 10.5 down to 8.0 today. Repeat check confirms this. Acute blood loss anemia No obvious bleeding but likely occult GIB with being on heparin SQ, INR has been elevated due to liver disease most likely despite Vit K being given on several occasions -give Vit K again now 5mg po x 1 -stop heparin SQ -continue ASA for now but may need to stop -follow CBC in AM and consult GI if worsening -change to PPI IV bid (from po once daily) -Hemoccult stool (2) Acute on chronic combined systolic and diastolic congestive heart failure due to valvular disease: Euvolemic, much improved, has diuresed 8 L this admission despite the fact that his weights have stayed relatively stable although it is down about 2 kg overall IV Lasix has been stopped -cont Lasix 40 mg p.o. once daily in the morning and watch his blood pressures Not a candidate for JACQUE/ARB due to critical and low BP. Cont BB. Appreciate cardiology consultation. s/p cath this admission - CAD present but stents are patent. Cath confirmed severity of . (3) Acute respiratory failure with hypoxia: Improved. Still requiring NC O2, however. hypoxia is likely chronic Pulmonary HTN? COPD (prior CTs with emphysema)? VTE? combination? will likely need O2 at d/c. (4) Hypothyroidism: Decompensated. Last 2 TSHs >25. Likely playing a role in his decompensated CHF as well. Dose of synthroid increased to 50mcg daily this admission. Will need repeat TSH in 4 weeks around the end of September. (5) Pulmonary hypertension: mild to moderate pulmonary hypertension on echos may be contributing to NC O2 requirement (6) Atrial flutter with rapid ventricular response: Normal sinus rhythm for 4 days Cont digoxin started this admission and beta salbador. Controlled. He is not on anticoagulation due to severe GI bleeding in the past. -stable for transfer to medical floor (7) Coagulopathy: 2nd to hepatic congestion from CHF? vitamin K deficiency? gave 5mg of vit K x 1 on 09/19 and on 09/21 INR still 1.4 -give another Vit K 5mg po x 1 as above for occult GIB (8) Aortic stenosis: severe/critical. needs TAVR evaluation at tertiary care center within the next 2-4 weeks after d/c. 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 Hgb dropped 2.5 grams today since last check 6 days ago. Pt and RN have not noted any gross bleeding i.e. no melena, no BRBPR, no hematuria, no hemoptysis, no further epistaxis since admission. Denies lightheadedness. Is frustrated that he won't be discharged today Discussed his care with his daughter on phone today Tele with NSR for many days now, some pVCs, rates 60s-70s Review of Systems All systems reviewed & are unremarkable except as noted in HPI & below Physical Exam Vital Signs (Past 24 Hours): Last Vital Signs Temp 36.5 C 09/23/18 07:43 Pulse 66 09/23/18 08:05 Resp 17 09/23/18 07:43 BP 96/53 L 09/23/18 07:43 Pulse Ox 94 09/23/18 07:43 Constitutional: WD/WN, vitals as above Eyes: PERRL, conjunctivae normal, anicteric sclerae ENMT: external ear and nose normal, oropharynx normal Neck: trachea midline, no thyromegaly Respiratory: normal respiratory effort, lungs clear to auscultation normal respiratory effort Auscultation: + crackles (Bibasilar) Cardiovascular: Rate/Rhythm: regular rate and regular rhythm Heart Sounds: + murmur (3/6 NAYANA at the RUSB) Extremities: + edema (trace-1+ pitting edema of the bilateral legs to the knees much improved from previous) Gastrointestinal (Abdomen): normal bowel sounds, soft, nontender, no hep atosplenomegaly Musculoskeletal: Extremities: extremities normal to inspection; no cyanosis and no clubbing Skin: no rashes, warm and dry + erythema (Mild erythema in the anterior tibia bilaterally that appears chronic) Neurologic: moves all extremities and awake; no focal motor deficits Psychiatric: Orientation: alert, oriented to person, oriented to place and cooperative Results & Data Laboratory Results 09/24/18 09/24/18 09/23/18 Range/Units 05:29 05:29 10:31 WBC 3.38 L (4.8-10.8) K/uL RBC 2.69 L (4.7-6.1) M/uL Hgb 7.5 L 8.2 L (14.0-18.0) g/dL Hct 24.7 L 26.4 L (42-52) % MCV 91.8 (80-100) fL MCH 27.9 (25-34) pg MCHC 30.4 L (32-36) g/dL RDW Std Deviation 56.7 H (36.4-46.3) fL RDW Coeff of Jessica 17.6 H (11.5-14.5) % Plt Count 153 (130-400) K/uL MPV 9.4 (7.4-10.4) fL Immature Gran % (Auto) 0.3 % Neut % (Auto) 69.9 % Lymph % (Auto) 12.7 % Grant % (Auto) 10.9 % Eos % (Auto) 5.9 % Baso % (Auto) 0.3 % Immature Gran # (Auto) 0.01 (0.00-0.02) K/uL Neut # (Auto) 2.36 (1.4-6.5) K/uL Lymph # (Auto) 0.43 L (1.2-3.4) K/uL Grant # (Auto) 0.37 (0.11-0.59) K/uL Eos # (Auto) 0.20 (0-0.5) K/uL Baso # (Auto) 0.01 (0-0.2) K/uL Ovalocytes PT (9.0-12.0) Seconds INR (0.9-1.1) Sodium Pending (136-145) mmol/L Potassium Pending (3.5-5.1) mmol/L Chloride Pending (98-107) mmol/L Carbon Dioxide Pending (21-32) mmol/L Anion Gap Pending (3-11) BUN Pending (7-18) mg/dl Creatinine Pending (0.6-1.4) mg/dl Est Cr Clr Drug Dosing Pending ml/min Est GFR ( Amer) Pending Est GFR (Non-Af Amer) Pending BUN/Creatinine Ratio Pending (10-20) Glucose Pending (70-99) mg/dl Calcium Pending (8.5-10.1) mg/dl Magnesium Pending (1.8-2.4) mg/dl 09/23/18 09/23/18 09/23/18 Range/Units 08:52 08:52 08:52 WBC 3.76 L (4.8-10.8) K/uL RBC 2.83 L (4.7-6.1) M/uL Hgb 8.0 L (14.0-18.0) g/dL Hct 25.9 L (42-52) % MCV 91.5 (80-100) fL MCH 28.3 (25-34) pg MCHC 30.9 L (32-36) g/dL RDW Std Deviation 56.7 H (36.4-46.3) fL RDW Coeff of Jessica 17.5 H (11.5-14.5) % Plt Count 156 (130-400) K/uL MPV 9.9 (7.4-10.4) fL Immature Gran % (Auto) 0.3 % Neut % (Auto) 76.1 % Lymph % (Auto) 10.1 % Grant % (Auto) 8.5 % Eos % (Auto) 4.5 % Baso % (Auto) 0.5 % Immature Gran # (Auto) 0.01 (0.00-0.02) K/uL Neut # (Auto) 2.86 (1.4-6.5) K/uL Lymph # (Auto) 0.38 L (1.2-3.4) K/uL Grant # (Auto) 0.32 (0.11-0.59) K/uL Eos # (Auto) 0.17 (0-0.5) K/uL Baso # (Auto) 0.02 (0-0.2) K/uL Ovalocytes 1+ PT 13.9 H (9.0-12.0) Seconds INR 1.4 H (0.9-1.1) Sodium 136 (136-145) mmol/L Potassium 4.3 (3.5-5.1) mmol/L Chloride 98 (98-107) mmol/L Carbon Dioxide 36 H (21-32) mmol/L Anion Gap 2.0 L (3-11) BUN 24 H (7-18) mg/dl Creatinine 0.70 (0.6-1.4) mg/dl Est Cr Clr Drug Dosing 87.9 ml/min Est GFR ( Amer) 107.8 Est GFR (Non-Af Amer) 93.0 BUN/Creatinine Ratio 34.5 H (10-20) Glucose 121 H (70-99) mg/dl Calcium 8.1 L (8.5-10.1) mg/dl Magnesium 2.3 (1.8-2.4) mg/dl (1) Aortic stenosis Cardiac valve disease etiology: etiology unspecified Qualified Code(s): I35.0 - Nonrheumatic aortic (valve) stenosis (2) Hypothyroidism Hypothyroidism type: acquired Qualified Code(s): E03.9 - Hypothyroidism, unspecified
[2018-09-23] MEDS: PANTOprazole 40 MG in SYRINGE 0 ML IV SCH ×2 (13:50→21:08)
[2018-09-23] MEDS: SERTRALINE HCL 50 MG TABLET PO SCH (21:08)
[2018-09-23] MEDS: ATORVASTATIN 40 MG TAB PO SCH (21:10)
[2018-09-23] MEDS: METOPROLOL SUCC 25MG EXT REL TAB PO SCH (21:14)
[2018-09-23] MEDS: DOCUSATE SODIUM/SENNA 50/8.6MG TAB PO SCH (21:16)
[2018-09-24 05:49] LABS: Basophils # (auto) 0.01 K/uL (0-0.2); Basophils % (auto) 0.3 %; Eosinophils % (auto) 5.9 %; Hematocrit (blood only) 24.7 % (42-52); Hemoglobin 7.5 g/dL (14.0-18.0); Immature Granulocytes # (auto) 0.01 K/uL (0.00-0.02); Immature Granulocytes % (auto) 0.3 %; Lymphocytes # (auto) 0.43 K/uL (1.2-3.4); Lymphocytes % (auto) 12.7 %; Mean Corpuscular Hgb Conc 30.4 g/dL (32-36); Mean Corpuscular Volume 91.8 fL (80-100); Mean Platelet Volume 9.4 fL (7.4-10.4); Monocytes # (auto) 0.37 K/uL (0.11-0.59); Monocytes % (auto) 10.9 %; Neutrophils # (auto) 2.36 K/uL (1.4-6.5); Neutrophils % (auto) 69.9 %; Platelet Count 153 K/uL (130-400); RDW Coefficient of Variation 17.6 % (11.5-14.5); RDW Standard Deviation 56.7 fL (36.4-46.3); Red Blood Count 2.69 M/uL (4.7-6.1); White Blood Count 3.38 K/uL (4.8-10.8)
[2018-09-24] MEDS ORDERED: SODIUM CHLORIDE 0.9% 250 ML IV PRN ×2 (06:05→06:51)
[2018-09-24] MEDS: LEVOTHYROXINE SODIUM 50 MCG TABLET PO SCH (06:13)
[2018-09-24 06:21] LABS: Ovalocytes 1+
[2018-09-24 06:39] LABS: BUN Creatinine Ratio 30.2 (10-20); Calcium 8.1 mg/dl (8.5-10.1); Creatinine Clr Calc Pharmacy 84.6 ml/min; Est GFR (African American) 105.9; Est GFR (Non-African American) 91.4; Magnesium 2.3 mg/dl (1.8-2.4); Potassium 4.6 mmol/L (3.5-5.1)
[2018-09-24] MEDS: FUROSEMIDE 40 MG TAB PO SCH (07:28)
[2018-09-24] MEDS: DIGOXIN 0.125 MG TAB PO SCH (07:28)
[2018-09-24] MEDS: MAGNESIUM OXIDE 400 MG TAB PO SCH ×2 (07:29→21:07)
[2018-09-24] MEDS: ASPIRIN 81 MG ECTAB PO SCH (07:29)
[2018-09-24] MEDS: PANTOprazole 40 MG in SYRINGE 0 ML IV SCH ×2 (07:31→21:06)
[2018-09-24 12:50] LABS: Hematocrit (blood only) 28.2 % (42-52); Hemoglobin 8.8 g/dL (14.0-18.0)
--- NOTE | 2018-09-24 14:54 | XRay Report ---
XR chest 1V portable CLINICAL HISTORY: CHF, interval change COMPARISON STUDY: September 17, 2018 FINDINGS: The heart remains enlarged. There is worsening pulmonary edema. There are small bilateral p leural effusions. Basilar opacities, are likely atelectatic.[ IMPRESSION: Cardiomegaly, and worsening pulmonary edema. Small bilateral pleural effusions. Electronically signed by: Randell Walker M.D. 09/24/2018 2:53 PM
[2018-09-24] MEDS ORDERED: BUMETANIDE 1 MG in SYRINGE 0 ML IV ONE (15:45)
--- NOTE | 2018-09-24 20:26 | Hospitalist Progress Note ---
Date of Service September 24, 2018 Assessment & Plan (1) Acute blood loss anemia: presumed GI in origin. had GI bleeding in 2018 which led to EGD with push enteroscopy. EGD entirely normal. examined small bowel to the jejunum was normal. I cannot find record of colonoscopy. daughter feels her father may have had a capsule endoscopy through [facility]. given his he easily could have an AVM as there is high association between both conditions. he is s/p 1 unit PRBCs today. Post-Tx H/H stable. repeat CBC in am hold aspirin very poor candidate for any procedures will try to call [facility] and see if he ever had capsule study (2) Hypotension: 2nd to presumed GI bleeding holding any meds that could influence BP (3) Encephalopathy acute: cause?? in light of elevated INR does he have some element of liver disease? if yes -- could he have hepatic encephalopathy? 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 Last 2 TSHs >25. Likely playing a role in his decompensated CHF as well. Dose of synthroid increased to 50mcg daily this admission. Will need repeat TSH in 4-6 weeks. (7) Pulmonary hypertension: mild to moderate pulmonary hypertension on echos may be contributing to NC O2 requirement (8) Atrial flutter with rapid ventricular response: Cont digoxin and beta salbador. Controlled. He has remained in NSR for much of the few days. He is not on anticoagulation due to prior GI bleeding. (9) Coagulopathy: 2nd to hepatic congestion from CHF? vitamin K deficiency? gave vitamin K several times without any effect on INR thus, etiology likely more of an intrinsic liver disease issue (10) Aortic stenosis: severe/critical. needs TAVR evaluation at tertiary [facility] after d/c. (11) CAD in [place] artery: s/p cath this admission with patent stents continue BB, statin hold asa due to presumed GI bleeding (12) DVT prophylaxis: holding heparin due to presumed GI bleeding SCDs only OT, PT evals appreciated; needs rehab daughter updated by phone 2/28 rehab on hold due to H/H issues and decompensated CHF prognosis poor - need to d/w patient and his daughter Subjective pt quite irritated during my visit. he was also confused. when asked what the matter was he stated several times he was frustrated. Constitutional: no fever Respiratory: + dyspnea on exertion Cardiovascular: no chest pain Gastrointestinal: no abdominal pain, no nausea, no vomiting, no blood in stools and no melena Physical Exam Vital Signs (Past 24 Hours): Last Vital Signs Temp 37.0 C 09/24/18 15:12 Pulse 60 09/24/18 15:12 Resp 18 09/24/18 15:12 BP 94/56 L 09/24/18 17:48 Pulse Ox 99 09/24/18 15:12 Constitutional: well developed and well nourished; no acute distress irritable ENMT: external ear and nose normal, oropharynx normal Respiratory: normal respiratory effort Auscultation: + crackles (both bases - much worse than previous exams); no rhonchi and no wheezes Cardiovascular: Rate/Rhythm: regular rate and regular rhythm Heart Sounds: normal S1, normal S2 and + murmur (3/6 holosystolic apex and RUSB) Vessels: + JVD, posterior tibial pulses present and dorsalis pedis pulses present Extremities: no edema Psychiatric: Orientation: alert, oriented to person and oriented to place; + not oriented to time Affect: + depressed affect Results & Data Laboratory Results Laboratory Results - last 24 hr 09/24/18 09/24/18 09/24/18 05:29 05:29 06:23 WBC 3.38 L RBC 2.69 L Hgb 7.5 L Hct 24.7 L MCV 91.8 MCH 27.9 MCHC 30.4 L RDW Std Deviation 56.7 H RDW Coeff of Jessica 17.6 H Plt Count 153 MPV 9.4 Immature Gran % (Auto) 0.3 Neut % (Auto) 69.9 Lymph % (Auto) 12.7 [place] % (Auto) 10.9 Eos % (Auto) 5.9 Baso % (Auto) 0.3 Immature Gran # (Auto) 0.01 Neut # (Auto) 2.36 Lymph # (Auto) 0.43 L [place] # (Auto) 0.37 Eos # (Auto) 0.20 Baso # (Auto) 0.01 Ovalocytes 1+ Sodium 138 Potassium 4.6 Chloride 98 Carbon Dioxide 36 H Anion Gap 4.0 BUN 22 H Creatinine 0.73 Est Cr Clr Drug Dosing 84.6 Est GFR ( Amer) 105.9 Est GFR (Non-Af Amer) 91.4 BUN/Creatinine Ratio 30.2 H Glucose 82 Calcium 8.1 L Magnesium 2.3 Blood Type A Negative Antibody Screen NEGATIVE Crossmatch See Detail 09/24/18 12:34 WBC RBC Hgb 8.8 L Hct 28.2 L MCV MCH MCHC RDW Std Deviation RDW Coeff of Jessica Plt Count MPV Immature Gran % (Auto) Neut % (Auto) Lymph % (Auto) [place] % (Auto) Eos % (Auto) Baso % (Auto) Immature Gran # (Auto) Neut # (Auto) Lymph # (Auto) [place] # (Auto) Eos # (Auto) Baso # (Auto) Ovalocytes Sodium Potassium Chloride Carbon Dioxide Anion Gap BUN Creatinine Est Cr Clr Drug Dosing Est GFR ( Amer) Est GFR (Non-Af Amer) BUN/Creatinine Ratio Glucose Calcium Magnesium Blood Type Antibody Screen Crossmatch (1) Aortic stenosis Cardiac valve disease etiology: etiology unspecified Qualified Code(s): I35.0 - Nonrheumatic aortic (valve) stenosis (2) Hypothyroidism Hypothyroidism type: acquired Qualified Code(s): E03.9 - Hypothyroidism, unspecified (3) Hypotension Hypotension type: other hypotension type Qualified Code(s): I95.89 - Other hypotension
[2018-09-24] MEDS: ATORVASTATIN 40 MG TAB PO SCH (21:07)
[2018-09-24] MEDS: SERTRALINE HCL 50 MG TABLET PO SCH (21:08)
[2018-09-24] MEDS: METOPROLOL SUCC 25MG EXT REL TAB PO SCH (21:22)
[2018-09-24] MEDS: DOCUSATE SODIUM/SENNA 50/8.6MG TAB PO SCH (21:51)
[2018-09-25] MEDS: ACETAMINOPHEN 325 MG TAB PO PRN (01:27)
[2018-09-25] MEDS: LEVOTHYROXINE SODIUM 50 MCG TABLET PO SCH (05:29)
[2018-09-25 07:28] LABS: Hematocrit (blood only) 28.7 % (42-52); Hemoglobin 8.7 g/dL (14.0-18.0); Mean Corpuscular Hgb Conc 30.3 g/dL (32-36); Mean Corpuscular Volume 92.3 fL (80-100); Mean Platelet Volume 9.9 fL (7.4-10.4); Platelet Count 170 K/uL (130-400); RDW Coefficient of Variation 17.6 % (11.5-14.5); RDW Standard Deviation 57.9 fL (36.4-46.3); Red Blood Count 3.11 M/uL (4.7-6.1)
[2018-09-25] MEDS: DIGOXIN 0.125 MG TAB PO SCH (07:49)
[2018-09-25] MEDS: MAGNESIUM OXIDE 400 MG TAB PO SCH ×2 (07:50→21:59)
[2018-09-25] MEDS: FUROSEMIDE 40 MG TAB PO SCH (07:50)
[2018-09-25] MEDS: PANTOprazole 40 MG in SYRINGE 0 ML IV SCH ×2 (07:50→21:59)
[2018-09-25 07:59] LABS: BUN Creatinine Ratio 30.9 (10-20); Calcium 8.4 mg/dl (8.5-10.1); Creatinine Clr Calc Pharmacy 70.9 ml/min; Est GFR (African American) 98.5; Potassium 4.7 mmol/L (3.5-5.1)
[2018-09-25] MEDS ORDERED: FUROSEMIDE 20 MG in SYRINGE 0 ML IV ONE (15:13)
[2018-09-25] MEDS ORDERED: SOD PHOSPHATE/SOD BIPHOSPHATE ENEMA 132 ML BTL PR STA (15:13)
[2018-09-25] MEDS ORDERED: SOD PHOSPHATE/SOD BIPHOSPHATE ENEMA 132 ML BTL PR ONE (15:17)
--- NOTE | 2018-09-25 17:46 | Cardiology Progress Note ---
Date of Service September 25, 2018 Assessment & Plan (1) Acute on chronic combined systolic and diastolic congestive heart failure due to valvular disease: 2. Low gradient severe 3. Severe LV dysfunction, EF 20-25% 4. Paroxysmal AF/?flutter 5. Hypotension 6. Hypothyroidism 7. Acute anemia 8. History of GI bleed 9. Frailty Patient with worsened anemia presumed secondary to occult GI bleeding, now post transfusion. Received IV diuretics yesterday and again today for volume overload after tr ansfusion. Today appears to be in sinus rhythm, reasonably perfused with some residual congestion. Altered mental status new from earlier in admission. -- Overall difficult situation. Feel that he likely does have severe but that his is just one of many problems including recurrent GI bleeding of unclear source, altered mental status and overall frailty. In that setting not sure AVR would change his condition significantly at this moment. Hopeful that could be a candidate for TAVR in the future if clinical condition improves. -- For now agree with ongoing diuresis -- Would target Hb > 9 -- Continue digoxin -- Hold ASA. Subjective Patient confused this afternoon and more difficult to understand. Concerned regarding bowel movement/constipation. Denies chest pain, shortness of breath. Physical Exam Vital Signs (Past 24 Hours): Last Vital Signs Temp 36.6 C 09/25/18 14:52 Pulse 84 09/25/18 14:52 Resp 20 09/25/18 14:52 BP 100/63 09/25/18 14:52 Pulse Ox 97 09/25/18 14:52 Constitutional: + ill appearing and + thin; no acute distress Eyes: + anicteric sclerae ENMT: Mallampati Class: II Respiratory: normal respiratory effort, lungs clear to auscultation Auscultation: + crackles (few at bases right > left) decreased breath sounds at bases. Cardiovascular: Rate/Rhythm: regular rate; + abnormal rhythm Heart Sounds: + murmur (2/6 systolic ejection at RUSB) Vessels: no JVD Gastrointestinal (Abdomen): normal bowel sounds, soft, nontender, no hepatosplenomegaly Inspection/Auscultation: + abdomen distended Skin: no rashes, warm and dry Neurologic: no focal motor deficits Psychiatric: Orientation: alert; + not oriented x 3 confused
--- NOTE | 2018-09-25 21:08 | Hospitalist Progress Note ---
Date of Service September 25, 2018 Assessment & Plan (1) Acute blood loss anemia: presumed GI in origin. had GI bleeding in 2018 which led to EGD with push enteroscopy. EGD entirely normal. examined small bowel to the jejunum was normal per recods. I cannot find record of colonoscopy. daughter feels her father may have had a capsule endoscopy through [facility]. will check with [facility] to see if that indeed happened. given his he easily could have an AVM as there is high association between both conditions. he is s/p 1 unit PRBCs recently. Post-Tx H/H stable since. repeat CBC in am hold aspirin very poor candidate for any procedures advance diet to full liquids then AHA diet tomorrow if stable (2) Hypotension: 2nd to presumed GI bleeding this has improved holding any meds that could influence BP (3) Encephalopathy acute: cause?? fecal impaction? other? ammonia nl no infectious etiology at this time (4) Acute on chronic combined systolic and diastolic congestive heart failure due to valvular disease: give additional IV lasix today re-eval tomorrow continue BB (5) Acute respiratory failure with hypoxia: ongoing likely due to decompensated CHF (6) Hypothyroidism: Decompensated. Last 2 TSHs >25. Likely playing a role in his decompensated CHF as well. Dose of synthroid increased to 50mcg daily this admission. Will need repeat TSH in 4-6 weeks. (7) Pulmonary hypertension: mild to moderate pulmonary hypertension on echos may be contributing to [place] O2 requirement (8) Atrial flutter with rapid ventricular response: Cont digoxin and beta salbador. Controlled. He has remained in NSR the last few days. He is not on anticoagulation due to prior GI bleeding. (9) Coagulopathy: 2nd to hepatic congestion from CHF? vitamin K deficiency? gave vitamin K several times without any effect on INR thus, etiology likely more of an intrinsic liver disease issue (10) Aortic stenosis: severe/critical. needs TAVR evaluation at tertiary care center [facility] after d/c. (11) CAD in [place] artery: s/p cath this admission with patent stents continue BB, statin hold asa due to presumed GI bleeding (12) DVT prophylaxis: holding heparin due to presumed GI bleeding SCDs only OT, PT evals appreciated; needs rehab daughter updated by phone 09/24 rehab on hold due to H/H issues and decompensated CHF prognosis poor - need to d/w patient and his daughter need code status discussion as well Subjective patient without BM in nearly a week has mild abdominal discomfort no dyspnea, cough, nausea, emesis mildly irritated again today due to "still being here" Constitutional: no fever Respiratory: no cough, no dyspnea and no wheezing Cardiovascular: no chest pain Gastrointestinal: as per Subjective / HPI, + abdominal pain and + constipation; no nausea, no vomiting and no diarrhea/loose stools Physical Exam Vital Signs (Past 24 Hours): Last Vital Signs Temp 36.6 C 09/25/18 14:52 Pulse 84 09/25/18 14:52 Resp 20 09/25/18 14:52 BP 100/63 09/25/18 14:52 Pulse Ox 97 09/25/18 14:52 Constitutional: well developed and well nourished; no acute distress ENMT: external ear and nose normal, oropharynx normal Respiratory: normal respiratory effort Auscultation: + crackles (improved today); no rhonchi and no wheezes Cardiovascular: Rate/Rhythm: regular rate and regular rhythm Heart Sounds: normal S1, normal S2 and + murmur (3/6 holosystolic apex and RUSB) Vessels: posterior tibial pulses present and dorsalis pedis pulses present Extremities: no edema Gastrointestinal (Abdomen): normal bowel sounds, soft, nontender, no hepatosplenomegaly Rectal Exam: + heme positive stool (received result from lab ) and + fecal impaction (very hard, firm) stool gross melena Psychiatric: Affect: + depressed affect Results & Data Laboratory Results Laboratory Results - last 24 hr 09/25/18 09/25/18 09/25/18 07:17 07:17 07:17 WBC 4.00 L RBC 3.11 L Hgb 8.7 L Hct 28.7 L MCV 92.3 MCH 28.0 MCHC 30.3 L RDW Std Deviation 57.9 H RDW Coeff of Jessica 17.6 H Plt Count 170 MPV 9.9 Sodium 134 L Potassium 4.7 Chloride 95 L Carbon Dioxide 38 H Anion Gap 1.0 L BUN 27 H Creatinine 0.87 Est Cr Clr Drug Dosing 70.9 Est GFR ( Amer) 98.5 Est GFR (Non-Af Amer) 85.0 BUN/Creatinine Ratio 30.9 H Glucose 90 Calcium 8.4 L Ammonia 14.3 Stool Occult Bld Scrn 09/25/18 Unknown WBC RBC Hgb Hct MCV MCH MCHC RDW Std Deviation RDW Coeff of Jessica Plt Count MPV Sodium Potassium Chloride Carbon Dioxide Anion Gap BUN Creatinine Est Cr Clr Drug Dosing Est GFR ( Amer) Est GFR (Non-Af Amer) BUN/Creatinine Ratio Glucose Calcium Ammonia Stool Occult Bld Scrn Positive H (1) Aortic stenosis Cardiac valve disease etiology: etiology unspecified Qualified Code(s): I35.0 - Nonrheumatic aortic (valve) stenosis (2) Hypothyroidism Hypothyroidism type: acquired Qualified Code(s): E03.9 - Hypothyroidism, unspecified (3) Hypotension Hypotension type: other hypotension type Qualified Code(s): I95.89 - Other hypotension
[2018-09-25] MEDS: ATORVASTATIN 40 MG TAB PO SCH (21:58)
[2018-09-25] MEDS: SERTRALINE HCL 50 MG TABLET PO SCH (21:59)
[2018-09-25] MEDS: METOPROLOL SUCC 25MG EXT REL TAB PO SCH (22:10)
[2018-09-25] MEDS: DOCUSATE SODIUM/SENNA 50/8.6MG TAB PO SCH (22:11)
[2018-09-26] MEDS: LEVOTHYROXINE SODIUM 50 MCG TABLET PO SCH (06:02)
[2018-09-26 07:38] LABS: Hematocrit (blood only) 27.6 % (42-52); Hemoglobin 8.3 g/dL (14.0-18.0); Mean Corpuscular Hgb Conc 30.1 g/dL (32-36); Mean Corpuscular Volume 92.9 fL (80-100); Mean Platelet Volume 10.4 fL (7.4-10.4); Platelet Count 189 K/uL (130-400); RDW Standard Deviation 59.7 fL (36.4-46.3); Red Blood Count 2.97 M/uL (4.7-6.1); White Blood Count 3.81 K/uL (4.8-10.8)
[2018-09-26 08:25] LABS: BUN Creatinine Ratio 26.7 (10-20); Calcium 8.6 mg/dl (8.5-10.1); Creatinine Clr Calc Pharmacy 71.9 ml/min; Est GFR (Non-African American) 85.4
[2018-09-26] MEDS: DIGOXIN 0.125 MG TAB PO SCH (08:42)
[2018-09-26] MEDS: MAGNESIUM OXIDE 400 MG TAB PO SCH ×2 (08:42→20:31)
[2018-09-26] MEDS: FUROSEMIDE 40 MG TAB PO SCH (08:42)
[2018-09-26] MEDS: PANTOprazole 40 MG in SYRINGE 0 ML IV SCH ×2 (08:43→20:31)
[2018-09-26] MEDS ORDERED: SODIUM CHLORIDE 0.9% 250 ML IV PRN (09:56)
[2018-09-26] MEDS ORDERED: FUROSEMIDE 20 MG in SYRINGE 0 ML IV SCH (12:00)
--- NOTE | 2018-09-26 20:26 | Hospitalist Progress Note ---
Date of Service September 26, 2018 Assessment & Plan (1) Acute blood loss anemia: presumed GI in origin. stable, improved. had GI bleeding in 2018 which led to EGD with push enteroscopy. EGD entirely normal. small bowel to the jejunum was normal per records. Previous colonoscopies also normal. 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 given his he easily could have an intestinal AVM as there is high association between both conditions. Hb goal in light of CAD and CHF -- about 9. Thus will Tx 1 additional unit of PRBCs today. Lasix 20mg IV x 1 following such. repeat CBC in am hold aspirin very poor candidate for any procedures advance diet to AHA today stop IV PPI change to PO PPI twice daily (2) Hypotension: 2nd to presumed GI bleeding - resolved (3) Encephalopathy acute: seems resolved today due to fecal impaction? (4) Acute on chronic combined systolic and diastolic congestive heart failure due to valvular disease: seems to be approaching euvolemia again. lasix following his PRBCs today. cont BB (5) Acute respiratory failure with hypoxia: has needed O2 this entire, protracted stay. suspect he will need O2 at discharge. (6) Hypothyroidism: Decompensated. Last 2 TSHs >25. Likely playing a role in his decompensated CHF as well. Dose of synthroid increased to 50mcg daily this admission. Will need repeat TSH in 4-6 weeks. (7) Pulmonary hypertension: mild to moderate pulmonary hypertension on echos may be contributing to [place] O2 requirement (8) Atrial flutter with rapid ventricular response: Cont digoxin and beta salbador. Controlled. He has remained in NSR the last few days. He is not on anticoagulation due to prior GI bleeding and current GI bleeding. Check dig level in AM. (9) Coagulopathy: 2nd to hepatic congestion from CHF? vitamin K deficiency? gave vitamin K several times without any effect on INR thus, etiology likely more of an intrinsic liver disease issue check INR in am for stability (10) Aortic stenosis: severe/critical. needs TAVR evaluation at tertiary care center [facility] after d/c. [facility]ely [facility]. (11) CAD in [place] artery: s/p cath this admission with patent stents continue BB, statin holding asa due to GI bleeding (12) DVT prophylaxis: holding heparin due to GI bleeding SCDs only OT, PT evals appreciated; needs rehab daughter and family EXTENSIVELY updated at bedside (spent 20-25 minutes updating them and discussing plan of care) to rehab on Friday if H/H remain stable? Subjective during my visit the pt's daughter, son in law, and grand-children were at bedside we had a lengthy discussion about the current issues & plan of care patient was a little more happy today than previous; he even had a smile on his face he reports another bowel movement today he tolerated the PRBCs ok Respiratory: no cough and no dyspnea Cardiovascular: no chest pain Gastrointestinal: no abdominal pain, no nausea and no vomiting Physical Exam Vital Signs (Past 24 Hours): Last Vital Signs Temp 36.6 C 09/26/18 16:00 Pulse 81 09/26/18 20:25 Resp 18 09/26/18 16:00 BP 97/66 L 09/26/18 20:25 Pulse Ox 100 09/26/18 20:25 Constitutional: well developed and well nourished; no acute distress sitting in chair at bedside comfortably, smiling today ENMT: external ear and nose normal, oropharynx normal Respiratory: normal respiratory effort; no respiratory distress Auscultation: no rales, no rhonchi and no wheezes Cardiovascular: Rate/Rhythm: regular rate and regular rhythm Heart Sounds: normal S1, normal S2 and + murmur (3/6 holosystolic apex and RUSB) Vessels: posterior tibial pulses present and dorsalis pedis pulses present Extremitie s: no edema Gastrointestinal (Abdomen): normal bowel sounds, soft, nontender, no hepatosplenomegaly Psychiatric: A+Ox3, euthymic affect Orientation: oriented to person; + not oriented to time Results & Data Laboratory Results Laboratory Results - last 24 hr 09/24/18 09/25/18 09/25/18 06:23 07:21 07:21 WBC RBC Hgb Hct MCV MCH MCHC RDW Std Deviation RDW Coeff of Jessica Plt Count MPV Sodium Potassium Chloride Carbon Dioxide Anion Gap BUN Creatinine Est Cr Clr Drug Dosing Est GFR ( Amer) Est GFR (Non-Af Amer) BUN/Creatinine Ratio Glucose Calcium Blood Type A Negative Blood Type Recheck A Negative Antibody Screen NEGATIVE Crossmatch See Detail See Detail 09/26/18 09/26/18 07:10 07:10 WBC 3.81 L RBC 2.97 L Hgb 8.3 L Hct 27.6 L MCV 92.9 MCH 27.9 MCHC 30.1 L RDW Std Deviation 59.7 H RDW Coeff of Jessica 18.0 H Plt Count 189 MPV 10.4 Sodium 136 Potassium 4.0 Chloride 95 L Carbon Dioxide 38 H Anion Gap 3.0 BUN 23 H Creatinine 0.86 Est Cr Clr Drug Dosing 71.9 Est GFR ( Amer) 99.0 Est GFR (Non-Af Amer) 85.4 BUN/Creatinine Ratio 26.7 H Glucose 89 Calcium 8.6 Blood Type Blood Type Recheck Antibody Screen Crossmatch (1) Aortic stenosis Cardiac valve disease etiology: etiology unspecified Qualified Code(s): I35.0 - Nonrheumatic aortic (valve) stenosis (2) Hypothyroidism Hypothyroidism type: acquired Qualified Code(s): E03.9 - Hypothyroidism, unspecified (3) Hypotension Hypotension type: other hypotension type Qualified Code(s): I95.89 - Other hypotension
[2018-09-26] MEDS: SERTRALINE HCL 50 MG TABLET PO SCH (20:31)
[2018-09-26] MEDS: ATORVASTATIN 40 MG TAB PO SCH (20:32)
[2018-09-26] MEDS: METOPROLOL SUCC 25MG EXT REL TAB PO SCH (20:32)
[2018-09-26] MEDS: DOCUSATE SODIUM/SENNA 50/8.6MG TAB PO SCH (20:32)
[2018-09-27] MEDS: LEVOTHYROXINE SODIUM 50 MCG TABLET PO SCH (06:43)
[2018-09-27 07:03] LABS: Hematocrit (blood only) 28.8 % (42-52); Hemoglobin 8.8 g/dL (14.0-18.0)
[2018-09-27 07:17] LABS: INR 1.4 (0.9-1.1); Prothrombin Time 14.1 Seconds (9.0-12.0)
[2018-09-27 07:33] LABS: Calcium 7.8 mg/dl (8.5-10.1); Creatinine Clr Calc Pharmacy 75.2 ml/min; Est GFR (Non-African American) 87.1
[2018-09-27] MEDS: MAGNESIUM OXIDE 400 MG TAB PO SCH ×2 (07:57→20:51)
[2018-09-27] MEDS: DIGOXIN 0.125 MG TAB PO SCH (07:57)
[2018-09-27] MEDS: PANTOprazole 40 MG TAB PO SCH ×2 (09:51→20:50)
[2018-09-27] MEDS: FUROSEMIDE 20 MG in SYRINGE 0 ML IV SCH ×2 (09:51→17:04)
[2018-09-27 14:09] LABS: Hematocrit (blood only) 28.7 % (42-52); Hemoglobin 8.9 g/dL (14.0-18.0)
--- NOTE | 2018-09-27 16:37 | Ultrasound Report ---
US gallbladder HISTORY: 72 years-old Male abnormal LFTs, elevated INR, assess for cirrhosis acutely elevated LFTs COMPARISON: Abdominal ultrasound 08/19/2017 TECHNIQUE: Multiple real-time sonographic images of the abdominal right upper quadrant were obtained assessing grayscale appearance and color flow FINDINGS: Visualized pancreas appears unremarkable. Mildly increased echogenicity of the liver redemonstrated p ossibly reflective of fibrotic change or hepatic steatosis. No marginal nodularity to suggest process . No abdominal ascites identified. No intrahepatic biliary ductal dilation identified. There is a 9 m m echogenic lesion about the right hepatic lobe suggestive of a probable calcification. Common bile duct is normal, 4 mm. Mild gallbladder wall thickening, 5 mm. Nonmobile echogenicities ab out the gallbladder neck suspicious for cholelithiasis. The previously noted gallbladder polyp and re ported fundal adenomyomatosis are not clearly seen on today's study. Today's exam however is limited secondary to patient condition. No pericholecystic fluid. No sonographic Jerez sign reported. 9 mm are cyst with adjacent calcification involves the lower pole right kidney. No right-sided hydron ephrosis identified. IMPRESSION: 1. Limited exam secondary to patient condition. 2. Mild gallbladder wall thickening with nonshadowing subcentimeter echogenicity about the gallbladde r neck, possibly reflecting cholelithiasis. No pericholecystic fluid or sonographic Jerez sign repor terrell. 3. Previously noted gallbladder polyp and probable fundal adenomyomatosis not definitively seen on to day's study. 4. No biliary ductal dilation. 5. Mildly increased echogenicity of the liver suggests fibrotic change or hepatic steatosis. No wallace nal nodularity to suggest cirrhosis. The above report was generated using voice recognition software. It may contain grammatical, syntax o r spelling errors. Electronically signed by: Nikos Alexandra M.D. 09/27/2018 4:35 PM
--- NOTE | 2018-09-27 20:05 | Hospitalist Progress Note ---
Date of Service September 27, 2018 Assessment & Plan (1) Acute blood loss anemia: 2nd to GI bleeding. Uncertain location of bleeding. stool heme + this week and stool was gross melena. stable, improved. H/H unchanged from yesterday. had GI bleeding in 2018 which led to EGD with push enteroscopy. this EGD was normal. Previous colonoscopies also normal. 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 given his he easily could have an intestinal AVM as there is high association between both conditions. Hb goal in light of CAD and CHF -- about 9. cont to hold aspirin cbc in am for stability start ferrous sulfate 325mg BID PPI twice daily very poor candidate for any procedures diet as tolerated (2) Hypotension: 2nd to presumed GI bleeding - resolved (3) Encephalopathy acute: resolved - due to recent fecal impaction? 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 suspect he will need O2 at discharge. (6) Hypothyroidism: Decompensated. Dose of synthroid increased to 50mcg daily this admission. Will need repeat TSH in about 4 weeks. (7) Pulmonary hypertension: mild to moderate pulmonary hypertension on echos may be contributing to [place] O2 requirement (8) Atrial flutter with rapid ventricular response: Cont digoxin and beta salbador. Dig level acceptable. Controlled. He is not on anticoagulation due to prior GI bleeding and current GI bleeding. Had tachycardia today - suspect it was due to a. flutter. gave additional dose of metoprolol tartrate 12.5mg for rate control. (9) Coagulopathy: 2nd to hepatic congestion from CHF? vitamin K deficiency? gave vitamin K several times without any effect on INR thus, etiology likely more of an intrinsic liver disease issue INR 1.4 today RUQ u/s obtained today -- fatty liver suspect he has liver dysfunction from passive congestion from CHF (10) Aortic stenosis: severe/critical. needs TAVR evaluation at tertiary care center [facility] after d/c. Likely [facility]. (11) CAD in [place] artery: s/p cath this admission with patent stents continue BB, statin holding asa due to GI bleeding (12) DVT prophylaxis: holding heparin due to GI bleeding SCDs only OT, PT evals appreciated; needs rehab daughter and family EXTENSIVELY updated at bedside 09/26 to rehab tomorrow or Friday if H/H stable and volume status acceptable Subjective no new complaints today has had small stools overnight - melena noted; no brbpr feels good tolerating diet Respiratory: no cough and no dyspnea Cardiovascular: no orthopnea and no paroxysmal nocturnal dyspnea Gastrointestinal: no abdominal pain, no nausea, no vomiting and no constipation Physical Exam Vital Signs (Past 24 Hours): Last Vital Signs Temp 36.8 C 09/27/18 16:00 Pulse 123 H 09/27/18 19:51 Resp 18 09/27/18 19:51 BP 91/54 L 09/27/18 19:51 Pulse Ox 94 09/27/18 19:51 Constitutional: well developed and well nourished; no acute distress ENMT: external ear and nose normal, oropharynx normal Respiratory: normal respiratory effort; no respiratory distress Auscultation: no rales, no rhonchi and no wheezes Cardiovascular: Rate/Rhythm: regular rate and regular rhythm Heart Sounds: normal S1, normal S2 and + murmur (3/6 holosystolic apex and RUSB) Vessels: posterior tibial pulses present and dorsalis pedis pulses present; no JVD Extremities: no edema Gastrointestinal (Abdomen): normal bowel sounds, soft, nontender, no hepatosplenomegaly Psychiatric: A+Ox3, euthymic affect Results & Data Laboratory Results Laboratory Results - last 24 hr 09/27/18 09/27/18 09/27/18 06:38 06:38 06:38 Hgb 8.8 L Hct 28.8 L PT INR Sodium 139 Potassium 4.0 Chloride 96 L Carbon Dioxide 40 H Anion Gap 3.0 BUN 23 H Creatinine 0.82 Est Cr Clr Drug Dosing 75.2 Est GFR ( Amer) 101.0 Est GFR (Non-Af Amer) 87.1 BUN/Creatinine Ratio 28.0 H Glucose 90 Calcium 7.8 L Digoxin 0.6 L 09/27/18 09/27/18 06:38 13:59 Hgb 8.9 L Hct 28.7 L PT 14.1 H INR 1.4 H Sodium Potassium Chloride Carbon Dioxide Anion Gap BUN Creatinine Est Cr Clr Drug Dosing Est GFR ( Amer) Est GFR (Non-Af Amer) BUN/Creatinine Ratio Glucose Calcium Digoxin (1) Aortic stenosis Cardiac valve disease etiology: etiology unspecified Qualified Code(s): I35.0 - Nonrheumatic aortic (valve) stenosis (2) Hypothyroidism Hypothyroidism type: acquired Qualified Code(s): E03.9 - Hypothyroidism, unspecified (3) Hypotension Hypotension type: other hypotension type Qualified Code(s): I95.89 - Other hypotension
[2018-09-27] MEDS ORDERED: METOPROLOL TARTRATE 25 MG TAB PO ONE (20:15)
[2018-09-27] MEDS: METOPROLOL SUCC 25MG EXT REL TAB PO SCH (20:50)
[2018-09-27] MEDS: SERTRALINE HCL 50 MG TABLET PO SCH (20:50)
[2018-09-27] MEDS: FERROUS SULFATE 325 MG TAB PO SCH (20:50)
[2018-09-27] MEDS: ATORVASTATIN 40 MG TAB PO SCH (20:51)
[2018-09-27] MEDS: DOCUSATE SODIUM/SENNA 50/8.6MG TAB PO SCH (20:52)
[2018-09-28] MEDS: LEVOTHYROXINE SODIUM 50 MCG TABLET PO SCH (05:38)
[2018-09-28 07:28] LABS: Hematocrit (blood only) 28.2 % (42-52); Hemoglobin 8.5 g/dL (14.0-18.0); Mean Corpuscular Hgb Conc 30.1 g/dL (32-36); Mean Corpuscular Volume 94.3 fL (80-100); Platelet Count 205 K/uL (130-400); RDW Coefficient of Variation 17.3 % (11.5-14.5); RDW Standard Deviation 58.6 fL (36.4-46.3); Red Blood Count 2.99 M/uL (4.7-6.1)
[2018-09-28 08:14] LABS: BUN Creatinine Ratio 17.8 (10-20); Calcium 7.9 mg/dl (8.5-10.1); Creatinine Clr Calc Pharmacy 80.4 ml/min; Est GFR (African American) 104.2; Est GFR (Non-African American) 89.9; Magnesium 2.1 mg/dl (1.8-2.4); Potassium 3.9 mmol/L (3.5-5.1)
[2018-09-28] MEDS: PANTOprazole 40 MG TAB PO SCH ×2 (08:23→21:09)
[2018-09-28] MEDS: FERROUS SULFATE 325 MG TAB PO SCH ×2 (08:23→16:53)
[2018-09-28] MEDS: DIGOXIN 0.125 MG TAB PO SCH (08:23)
[2018-09-28] MEDS: MAGNESIUM OXIDE 400 MG TAB PO SCH ×2 (08:23→21:13)
[2018-09-28] MEDS ORDERED: FUROSEMIDE 40 MG TAB PO SCH (13:00)
--- NOTE | 2018-09-28 13:52 | Heart Failure Progress Note ---
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 He has been converted to PO Lasix 40 mg daily. Will need continued close follow up regarding his volume status. Recommend daily standing weights at the facility and low sodium diet, less than 2,000 mg daily. Continue Lasix 40 mg daily as outpatient. Recommend close monitoring of kidney function and electrolytes. [place] [facility] [place], transitional pathway within 7 days of discharge. -- Overall difficult situation. Feel that he likely does have severe but that his is just one of many problems including recurrent GI bleeding of unclear source, altered mental status and overall frailty. In that setting not sure AVR would change his condition significantly at this moment. Hopeful that could be a candidate for TAVR in the future if clinical condition improves- per Dr. Mata. (2) Dilated cardiomyopathy: EF declined on most recent echo, 20-25%. He previously did well with Benazepril and Metoprolol. Both were held initially due to hypotension. Metoprolol has been restarted at low dose, 12.5 mg daily for rate control. May consider restarting ACEI vs Entresto as outpatient if BP allows. Subjective Mr. Rizo is a 71-year-old male with a medical history significant for coronary artery disease post PCI with stent placement to RCA, PDA and 1st diagonal in March of 2016, ischemic cardiomyopathy, heart failure with reduced ejection fraction, hypertension, dyslipidemia, now with severe valvular heart disease who has been identified by case management as a potential candidate for the heart failure program. Patient is pleasant this afternoon. He is sitting up in a chair at the bedside and voices no complaints. He feels his shortness of breath is stable and his swelling is improved. He reports he was able to sleep well last night. He is diuresising well with stable kidney function. He is currently negative 10 L and down 2 kg this admission. The patient states he lives alone in [place] and has 2 children. His daughter Marielle lives locally and often assists him. He is anticipating discharge to [facility] once medically stable. Physical Exam Vital Signs (Past 24 Hours): Last Vital Signs Temp 36.4 C L 09/28/18 08:10 Pulse 65 09/28/18 08:23 Resp 16 09/28/18 08:10 BP 91/57 L 09/28/18 08:10 Pulse Ox 99 09/28/18 08:10 Constitutional: Alert, cooperative and in no distress. HEENT: Unremarkable Neck: No jugular venous distention, carotid pulses are normal and equal bilaterally without bruits. Pulmonary: Clear to auscultation bilaterally. Cardiac: Regular rhythm with 2/6 systolic murmur at RUSB, no gallop or rub. Abdomen: Soft, nontender with normal bowel sounds. Extremities: No edema. Distal pulses intact. Neurologic: No focal findings. Gait is steady. Skin: No rash, ecchymoses or petechiae.
--- NOTE | 2018-09-28 19:55 | Hospitalist Progress Note ---
Date of Service September 28, 2018 Assessment & Plan (1) Acute blood loss anemia: 2nd to GI bleeding. Uncertain location of bleeding. stool heme + over the weekend and stool was gross melena. s/p 2 units of PRBCs in the last week. stable, improved. H/H unchanged from yesterday. had GI bleeding in 2018 which led to EGD with push enteroscopy. this EGD was normal. Previous colonoscopies also normal. 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 given his he easily could have an intestinal AVM as there is high association between both conditions. Hb goal in light of CAD and CHF -- about 9. cont to hold aspirin cbc in am for stability cont ferrous sulfate 325mg BID PPI twice daily very poor candidate for any procedures diet as tolerated follow (2) Hypotension: 2nd to presumed GI bleeding - resolved (3) Encephalopathy acute: resolved (4) Acute on chronic combined systolic and diastolic congestive heart failure due to valvular disease: looks euvolemic resume lasix 40mg PO daily cont BB low-dose not JACQUE/ARB candidate due to low or low-normal BPs (5) Acute respiratory failure with hypoxia: has needed O2 this entire, protracted stay. suspect he will need O2 at discharge. (6) Hypothyroidism: Decompensated. Dose of synthroid increased to 50mcg daily this admission. Will need repeat TSH in about 4 weeks. (7) Pulmonary hypertension: mild to moderate pulmonary hypertension on echos may be contributing to [place] O2 requirement (8) Atrial flutter with rapid ventricular response: Cont digoxin and beta salbador. Dig level acceptable. Controlled. He is not on anticoagulation due to prior GI bleeding and current GI bleeding. (9) Coagulopathy: gave vitamin K several times without any effect on INR thus vit K def unlikely etiology likely more of an intrinsic liver disease issue possibly from passive congestion from severe CHF RUQ u/s obtained this admission -- fatty liver most recent ammonia level normal follow periodically with INR (10) Aortic stenosis: severe/critical. needs TAVR evaluation at tertiary care center [facility] after d/c. Likely [facility]. (11) CAD in [place] artery: s/p cath this admission with patent stents continue BB, statin holding asa due to GI bleeding unfortunately (12) DVT prophylaxis: holding heparin due to GI bleeding SCDs only OT, PT evals appreciated; needs rehab daughter and family EXTENSIVELY updated at bedside 3/ daughter updated again today by phone to rehab tomorrow if H/H stable Subjective no issues overnight feels good in good spirits eating 100% of meals no melena or BRBPR noted by patient denies dyspnea Constitutional: no fever Respiratory: no cough and no dyspnea Cardiovascular: no chest pain Gastrointestinal: no abdominal pain, no nausea, no vomiting and no blood in stools Physical Exam Vital Signs (Past 24 Hours): Last Vital Signs Temp 36.5 C 09/28/18 15:29 Pulse 62 09/28/18 15:29 Resp 17 09/28/18 15:29 BP 87/52 L 09/28/18 15:29 Pulse Ox 96 09/28/18 15:29 Constitutional: well developed and well nourished; no acute distress ENMT: external ear and nose normal, oropharynx normal Respiratory: normal respiratory effort; no respiratory distress Auscultation: + diminished lung sounds (bases b/l ); no rales, no rhonchi and no wheezes Cardiovascular: Rate/Rhythm: regular rate and regular rhythm Heart Sounds: normal S1, normal S2 and + murmur (2/6 holosystolic apex and RUSB) Vessels: posterior tibial pulses present and dorsalis pedis pulses present; no JVD Extremities: no edema Gastrointestinal (Abdomen): normal bowel sounds, soft, nontender, no hepatosplenomegaly Psychiatric: A+Ox3, euthymic affect Results & Data Laboratory Results Laboratory Results - last 24 hr 09/28/18 09/28/18 06:50 06:50 WBC 3.70 L RBC 2.99 L Hgb 8.5 L Hct 28.2 L MCV 94.3 MCH 28.4 MCHC 30.1 L RDW Std Deviation 58.6 H RDW Coeff of Jessica 17.3 H Plt Count 205 MPV 10.0 Sodium 138 Potassium 3.9 Chloride 94 L Carbon Dioxide 42 H* Anion Gap 1.0 L BUN 14 Creatinine 0.76 Est Cr Clr Drug Dosing 80.4 Est GFR ( Amer) 104.2 Est GFR (Non-Af Amer) 89.9 BUN/Creatinine Ratio 17.8 Glucose 87 Calcium 7.9 L Magnesium 2.1 (1) Aortic stenosis Cardiac valve disease etiology: etiology unspecified Qualified Code(s): I35.0 - Nonrheumatic aortic (valve) stenosis (2) Hypothyroidism Hypothyroidism type: acquired Qualified Code(s): E03.9 - Hypothyroidism, unspecified (3) Hypotension Hypotension type: other hypotension type Qualified Code(s): I95.89 - Other hypotension
[2018-09-28] MEDS: METOPROLOL SUCC 25MG EXT REL TAB PO SCH (21:09)
[2018-09-28] MEDS: ATORVASTATIN 40 MG TAB PO SCH (21:11)
[2018-09-28] MEDS: SERTRALINE HCL 50 MG TABLET PO SCH (21:12)
[2018-09-28] MEDS: DOCUSATE SODIUM/SENNA 50/8.6MG TAB PO SCH (21:38)
[2018-09-29] MEDS: ALUMINUM/MAGNESIUM SUSP 30 ML UDC PO PRN ×2 (01:58→05:55)
[2018-09-29] MEDS: LEVOTHYROXINE SODIUM 50 MCG TABLET PO SCH (05:54)
[2018-09-29 06:49] LABS: Hematocrit (blood only) 27.7 % (42-52); Hemoglobin 8.6 g/dL (14.0-18.0); Mean Corpuscular Volume 94.5 fL (80-100); Platelet Count 180 K/uL (130-400); RDW Coefficient of Variation 17.2 % (11.5-14.5); RDW Standard Deviation 59.3 fL (36.4-46.3); Red Blood Count 2.93 M/uL (4.7-6.1); White Blood Count 3.91 K/uL (4.8-10.8)
[2018-09-29 07:22] VITALS: BP 97/61; TEMP 97.5
[2018-09-29 07:24] LABS: Creatinine Clr Calc Pharmacy 67.5 ml/min; Est GFR (African American) 89.9; Est GFR (Non-African American) 77.6; Potassium 4.1 mmol/L (3.5-5.1)
[2018-09-29] MEDS: FERROUS SULFATE 325 MG TAB PO SCH (09:20)
[2018-09-29] MEDS: PANTOprazole 40 MG TAB PO SCH (09:20)
[2018-09-29] MEDS: FUROSEMIDE 40 MG TAB PO SCH (09:20)
[2018-09-29] MEDS: MAGNESIUM OXIDE 400 MG TAB PO SCH (09:20)
[2018-09-29] MEDS: DIGOXIN 0.125 MG TAB PO SCH (09:20)
[2018-09-29 11:57] VITALS: O2SAT 68
--- NOTE | 2018-09-29 12:14 | Discharge Summary ---
Date of Service September 29, 2018 Admission HPI Per Admitting Provider 72 y/o M hx CAD, combined CHF - 35%, paroxysmal AF, moderate to severe , HTN, HLD, hypothyroid, CVA with expressive dysphasia. The pt is a poor historian but states that he presented to the ER due to edema on his lower extremities. On arrival it was noted that he was hypotensive and hypoxic although relatively asymptomatic. He denies CP, SOB, cough or fevers. Initial evaluation including imaging and clinical exam is consistent with CHF exacerbation. His systolic blood pressure has been 85-95 while in the ER. 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 12) Hypothyroidism 13) CVA - residual expressive dysphasia Surgical: 1) Pleurodesis 2) RCA stent 3) L knee arthroscopy Social: Lives alone Distant history of smoking - does not drink alcohol Family: Could not provide a family history Principal Diagnosis Acute on chronic combined systolic and diastolic CHF, severe aortic stenosis, acute hypoxic respiratory failure Discharge Exam Constitutional WD/WN, vitals as above Eyes PERRL, conjunctivae normal, anicteric sclerae ENMT external ear and nose normal, oropharynx normal Neck trachea midline, no thyromegaly Respiratory normal respiratory effort Auscultation: + crackles (Bibasilar) Cardiovascular Rate/Rhythm: regular rate and regular rhythm Heart Sounds: + murmur (3/6 NAYANA at the RUSB) Extremities: + edema (tracepitting edema of the bilateral legs to the mid tibia significantly improved from previous) Gastrointestinal (Abdomen) normal bowel sounds, soft, nontender, no hepatosplenomegaly Musculoskeletal Extremities: extremities normal to inspection; no cyanosis and no clubbing Skin no rashes, warm and dry Neurologic moves all extremities and awake; no focal motor deficits (Except with expressive aphasia) Psychiatric Orientation: alert, oriented to person, oriented to place and cooperative Discharge Data Allergies Allergy/AdvReac Type Severity Reaction Status Date / Time No Known Allergies Allergy Verified 09/10/18 17:18 Consultations 09/10/18 20:23 Consult Cardiology Routine Procedures Performed Operation Date: 09/11/18 12:00 Actual Procedures p Cath, Right and Left Heart - All Mata MD s Cineradiography w/Routine Exam - All Mata MD s Ultrasound Vascular Access - All Mata MD Ordered Studies 09/11/18 12:49 CL Cath Imgs for PACS use only Routine 09/27/18 08:42 US gallbladder Routine Chest x-ray x3 Hospital Course (1) Acute blood loss anemia: 2nd to GI bleeding. Uncertain location of bleeding. stool heme + over the weekend and stool was gross melena. s/p 2 units of PRBCs in the last week. stable, improved. H/H remains unchanged for several days prior to discharge at 8.6 had a history of severe GI bleeding in 2018 which led to EGD with push ent eroscopy. this EGD was normal. Previous colonoscopies also normal. 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 given his he easily could have an intestinal AVM as there is high association between both conditions. He was also being given subcutaneous heparin for DVT prophylaxis and this was discontinued Hb goal in light of CAD and CHF -- about 9. 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 He dropped down to the high 60s on his pulse ox briefly on the day of discharge while getting up to go to the bathroom and not breathing through his nose. He quickly recovered back into the 90s on his usual 2 L nasal cannula and therefore he will need continuous oxygen at the time of discharge (6) Hypothyroidism: Decompensated. Dose of synthroid increased to 50mcg daily this admission. Will need repeat TSH in about 2 more weeks. (7) Pulmonary hypertension: mild to moderate pulmonary hypertension on echos may be contributing to [place] O2 requirement (8) Atrial flutter with rapid ventricular response: Was in a rapid atrial flutter initially upon admission and was loaded with digoxin as his blood pressure cannot tolerate a higher dose of an AV mary ellen blocking agent -Cont digoxin and beta salbador. Dig level acceptable. Controlled. He is not on anticoagulation due to prior GI bleeding and current GI bleeding. (9) Coagulopathy: gave vitamin K several times without any effect on INR thus vit K def unlikely etiology likely more of an intrinsic liver disease issue possibly from passive congestion from severe CHF RUQ u/s obtained this admission -- fatty liver most recent ammonia level normal follow periodically with INR (10) Aortic stenosis: severe/critical. needs TAVR evaluation at tertiary care center [facility] after d/c. Likely [facility]. (11) CAD in [place] artery: s/p cath this admission with patent stents continue BB, statin Okay to restart aspirin 81 mg daily but watch CBC carefully (12) DVT prophylaxis: Discontinued SQ heparin due to GI bleeding SCDs only were provided after that OT, PT evals appreciated; needs rehab disposition-stable for discharge to rehab facility today Total Time Total Time Spent Total Time Spent (In Minutes): Greater than 30 minutes Total Time Includes: Examination of the Patient, Discharge Planning and Medication Reconciliation Discharge Plan Discharge Items Patient Disposition: Transfer Half-Way Fac Reason For Visit: CHF EXACERBATION Discharge Diagnosis: Acute on chronic systolic CHF, acute blood loss anemia, severe aortic stenosis Condition: Fair Discharge Goals: Decrease discomfort, Diagnostic testing, Improve disease control, Learn about illness and Therapeutic intervention Activity: As commented below Lifting: Gradually increase as tolerated Bathing: No limitations Exercise/Sports: As tolerated Non-emergency contact: Primary Care Provider and Medical Delivery Technician Call non-emergency contact if: you have any medication questions, your symptoms worsen and your temperature is above 101 Follow-up/Referrals: All Mata MD [Physician] - (Please follow-up within 1-2 weeks) Diet: Low Sodium (2gm) Addtl Provider Instructions: Mr. Rizo was admitted with acute on chronic combined systolic and diastolic CHF due to severe aortic stenosis. He had a cardiac catheterization in preparation for evaluation for valve replacement and did not have any intervention performed. He was diuresed adequately but is still requiring oxygen at the time of discharge at 2 L nasal cannula. He also had a GI bleed while he was here and he has a history of this which is why he is not on anticoagulation for his paroxysmal atrial fibrillation and flutter. His hemoglobin was stable for several days prior to discharge but he did require 2 units of packed red blood cell transfusion. His CBC should be followed in 2-3 days after discharge. He needs an appointment with the heart failure clinic as below within 1 week. He also needs evaluation for aortic valve replacement at [facility]- this can be arranged either by the nursing facility or his primary telephone appointment clerk. Call your Primary Care doctor if any of the following symptoms or problems start or get worse: * Shortness of breath or difficulty breathing * Wake up at night short of breath * Chest pain * Cough * Swelling of your hands, feet, or legs * More fatigued or tired with your normal activity * Palpitations - sudden fast heart beats WEIGHT * Weigh yourself every morning after using the bathroom. * Use the same scale. * Wear the same amount of clothing. * Write your weight down on a chart. * Call your Primary Care doctor if you gain more than 2-3 pounds in 1-2 days. MEDICATIONS * Use this discharge instruction sheet for medication instructions. * Take your medications at the time your doctor ordered. * Do not skip a dose of your medicines. * If you miss a dose of medicine, take it as soon as possible, but DO NOT DOUBLE A DOSE. * Read your medicine information when you get home. * Know all of the side effects of your medicine. If in doubt, ask your pharmacist * Call your Primary Care doctor's office if you have any side effects. * Be sure all of your doctors know what medicine and herbs you take (including cold, flu, and herbal medicine). Take the following with you to your follow-up doctor appointments: * Weight Chart * Medication List * List of questions Do not drink excessive alcohol, beer or wine. -DAILY STANDING WEIGHTS AT FACILITY. PLEASE FAX WEEKLY TO [phone] SHASHANK BARCENAS I - RECOMMEND LOW SODIUM DIET, LESS THAN 2,000 MG DAILY - MAINTAIN FLUID RESTRICTION, LESS THAN 1500 ML/DAY -FOLLOW UP WITHIN 7 DAYS OF DISCHARGE WITH [facility] [place] [facility] [place]. -NOTIFY HEART FAILURE PROGRAM FOR WORSENING SYMPTOMS INCLUDING SOB, SWELLING, OR WEIGHT GAIN MORE THAN 3 LB. Prescriptions: New acetaminophen [Mapap (acetaminophen)] 325 mg Tablet 650 mg PO Q4H PRN (Reason: pain) Qty: 30 RF: 0 digoxin 125 mcg Tablet 0.125 mg PO QAM Qty: 30 RF: 0 furosemide 40 mg Tablet 40 mg PO QAM Qty: 30 RF: 0 magnesium oxide 400 mg (241.3 mg magnesium) Tablet 400 mg PO BID Qty: 60 RF: 0 levothyroxine [Synthroid] 50 mcg Tablet 50 mcg PO DAILYBB Qty: 30 RF: 0 Continued sennosides-docusate sodium [Senna Plus] 8.6-50 mg tablet 1 tab PO QPM RF: 0 ferrous sulfate 325 mg (65 mg iron) tablet 1 tab PO BID RF: 0 metoprolol succinate 25 mg tablet extended release 24 hr 0.5 tab PO QPM RF: 0 sertraline 50 mg tablet 1.5 tab PO QPM RF: 0 cholecalciferol (vitamin D3) [Vitamin D3] 2,000 unit capsule 1 cap PO QAM RF: 0 aspirin [Aspirin Low Dose] 81 mg Tablet,Delayed Release (Dr/Ec) 81 mg PO DAILY RF: 0 bimatoprost [Lumigan] 0.01 % drops RF: 0 Unknown Daily Vitamin 1 tab PO DAILY RF: 0 Changed atorvastatin 80 mg tablet 80 mg PO HS Qty: 30 RF: 0 pantoprazole 40 mg tablet,delayed release (DR/EC) 40 mg PO BID Qty: 0 RF: 0 Discontinued furosemide 40 mg tablet 1 tab PO DIRECTED RF: 0 levothyroxine 25 mcg tablet 25 mcg PO QAM RF: 0 potassium chloride [Klor-Con M20] 20 mEq tablet,ER particles/crystals 20 meq PO QPM RF: 0 magnesium oxide 400 mg (241.3 mg magnesium) tablet 1 tab PO QPM RF: 0 benazepril 10 mg tablet 10 mg PO QAM RF: 0 Stand-Alone Forms: [facility] Discharge Orders: Discharge Order (Routine); Ordered 09/29/18 Ordered By: Carmel Cantu Skilled Items Patient informed of condition?: Yes DNR: No Discharge Level of Care: Skilled Communicable Disease: No Discharge Prognosis: Stable Admission Data Admit Date/Time: 09/10/18 17:54 Attending Provider: Carmel Cantu Admit Provider: Rodolfo Tafoya Primary Care Provider: Alex Marshall Other Providers: Rodolfo Tafoya ; Reed Jay Service: Telemetry Other Pending Studies at Discharge: No
[2018-09-29 13:47] VITALS: PULSE 60
== END 2018-09-29 15:35 | DRG 286 ==
LOC: ED 14:54 → 2S 17:54 → SUATTDRO 17:54 → 2S 19:02 → 4W 09-23 13:25

== ENCOUNTER 2019-01-01 13:44 | Inpatient (IN) ==
[2019-01-01] MEDS ORDERED: NALOXONE HCL 0.4 MG/1 ML VIAL/CARP IV STA (13:54)
--- NOTE | 2019-01-01 14:11 | XRay Report ---
XR chest 1V portable CLINICAL HISTORY: Weakness. COMPARISON STUDY: Chest radiograph September 24, 2018. FINDINGS: Left basilar opacity is unchanged. This favors atelectasis. There are small bilateral pleur al effusions. Mild pulmonary edema is noted. This is decreased when compared to exam of September 24, 2018. Cardiomegaly is unchanged. There is no pneumothorax. IMPRESSION: 1. Mild pulmonary edema. 2. Small bilateral pleural effusions. 3. Left basilar opacity which favors atelectasis. Electronically signed by: Lonnie Almanza M.D. 01/01/2019 2:10 PM
--- NOTE | 2019-01-01 14:30 | CT Scan Report ---
CT head/brain wo con CLINICAL HISTORY: 73 years-old Male presenting with ams. TECHNIQUE: Multidetector CT imaging of the head was performed without the use of intravenous contrast . IV contrast: None. One or more dose lowering techniques were used consistent with the principles of ALARA (as low as reasonably achievable), including automatic exposure control, mA or kV adjustment t o individual patient size, and/or use of iterative reconstruction. COMPARISON: None. CT DOSE (mGy.cm): The estimated cumulative dose is 1228.53 mGy.cm. FINDINGS: Production Artist topogram: Unremarkable. Proportional ventricular and sulcal prominence, likely age-related parenchymal volume loss. No hemorr suly. Periventricular and subcortical white matter hypoattenuation, nonspecific but likely indicative of chronic small vessel ischemic change. No acute territorial infarct. No mass effect or midline jason ft. No extra-axial fluid collection. Paranasal sinuses and mastoid air cells clear. Calvarium intact. IMPRESSION: 1. Chronic small vessel ischemic change. No acute intracranial abnormality. Electronically signed by: Alex Ross M.D. 01/01/2019 2:29 PM
[2019-01-01 14:37] LABS: Appearance Urine Clear (Clear); Bacteria Urine Automated Negative (Negative); Bilirubin Urine Negative (Negative); Blood Urine Trace (Negative); Color Urine Dark Yellow; Epithelial Cell Urine Auto >30 /lpf (0-5); Glucose Urine UA Negative (Negative); Ketones Urine Negative (Negative); Leukocyte Esterase Urine Negative (Negative); Nitrite Urine Negative (Negative); Protein Urine 1+ (Negative); RBC Urine Automated 0-4 /hpf (0-4); Specific Gravity Urine 1.019 (1.000-1.030); Urobilinogen Urine Negative (Negative)
[2019-01-01 15:12] LABS: Basophils # (auto) 0.04 K/uL (0-0.2); Basophils % (auto) 0.6 %; Eosinophils # (auto) 0.03 K/uL (0-0.5); Eosinophils % (auto) 0.4 %; Hematocrit (blood only) 34.5 % (42-52); Hemoglobin 10.3 g/dL (14.0-18.0); Immature Granulocytes # (auto) 0.06 K/uL (0.00-0.02); Immature Granulocytes % (auto) 0.9 %; Lymphocytes # (auto) 0.44 K/uL (1.2-3.4); Lymphocytes % (auto) 6.4 %; Mean Corpuscular Hgb Conc 29.9 g/dL (32-36); Mean Corpuscular Volume 97.2 fL (80-100); Mean Platelet Volume 9.6 fL (7.4-10.4); Monocytes # (auto) 0.49 K/uL (0.11-0.59); Monocytes % (auto) 7.1 %; Neutrophils # (auto) 5.84 K/uL (1.4-6.5); Neutrophils % (auto) 84.6 %; Platelet Count 212 K/uL (130-400); RDW Coefficient of Variation 17.8 % (11.5-14.5); RDW Standard Deviation 61.8 fL (36.4-46.3); Red Blood Count 3.55 M/uL (4.7-6.1)
[2019-01-01 15:18] LABS: Base Excess VBG 8.4 mEq/L; HCO3 VBG 40 mmol/L; PCO2 VBG 110 mmHg (38-50); PO2 VBG 37 mmHg; pH VBG 7.18 (7.36-7.41)
[2019-01-01 15:19] LABS: Oxygen Saturation VBG < 60.0 %
[2019-01-01 15:20] LABS: Prothrombin Time 19.2 Seconds (9.0-12.0)
[2019-01-01] MEDS ORDERED: FUROSEMIDE 40 MG/4 ML VIAL IV STA (15:34)
[2019-01-01 15:37] LABS: Alanine Aminotransferase 36 U/L (12-78); Albumin Level 3.2 gm/dl (3.4-5.0); Aspartate Aminotransferase 41 U/L (15-37); BUN Creatinine Ratio 17.7 (10-20); Blood Urea Nitrogen 26 mg/dl (7-18); Calcium 9.3 mg/dl (8.5-10.1); Carbon Dioxide 40 mmol/L (21-32); Chloride 99 mmol/L (98-107); Est GFR (African American) 53.8; Est GFR (Non-African American) 46.4; Glucose 96 mg/dl (70-99); Magnesium 2.8 mg/dl (1.8-2.4); Potassium 4.3 mmol/L (3.5-5.1); Sodium 143 mmol/L (136-145)
[2019-01-01 15:59] LABS: Albumin Globulin Ratio 0.9 (0.9-2); Alkaline Phosphatase 171 U/L (45-117); Bilirubin,Total 0.7 mg/dl (0.2-1); Globulin 3.5 gm/dl (2.5-4.0); Total Protein 6.7 gm/dl (6.4-8.2); Troponin I 0.626 ng/ml (0-0.045)
[2019-01-01 16:12] LABS: T4 Free Thyroxine 0.88 ng/dl (0.8-1.6)
--- NOTE | 2019-01-01 16:47 | History & Physical Report ---
Date of Service January 01, 2019 Assessment & Plan (1) Acute respiratory failure: Patient is acute respiratory failure with hypercarbia and obtundation is on BiPAP we will check an ABG when he gets the ICU continue him on BiPAP therapy avoiding sedatives in the presence. The patient did have Narcan on presentation which did not have much improvement the patient is pupillary size being slightly smaller than I would expect it may imply he does have some opiates on board although we do not have direct report that he received any recently only that he was having increasing hallucinations at the senior living. Given his hypercarbia it may have some underlying chronic lung disease with a very distant smoking history (2) Atrial fibrillation: Patient recently has had his digoxin reduced we will check a level in the morning continue his digoxin 0.25 daily and his metoprolol which was usually given at 12.5 XL at bedtime will be changed to intravenous form until he wakes up and is able to swallow medications (3) Hypertension: Other than the metoprolol for his hypertension the patient also has some hypertensive control from Lasix which is likely also used to treat his pulmonary hypertension (4) Chronic diastolic heart failure: As mentioned the patient has moderate to severe aortic stenosis and was not a candidate for TAVR he did have a valvuloplasty is maintained on chronic daily Lasix therapy. He did not receive Lasix on the day of admission because of acute kidney injury with creatinine elevated 1.46, he was given a little bit of IV fluid and his Lasix will be resumed in the morning if he is hemodynamically stable. This dose will need to be ordered (5) Chronic systolic heart failure: Patient's EF is been reduced this is what prompted him to move forward with TAVR evaluation (6) Coagulopathy: His INR is 2.0 on presentation is a history of coagulopathy and is not supposed to be on anticoagulation other than aspirin therapy due to GI bleed from undetermined source which is what prevents him from being chronically anticoagulated in the first place for his atrial fibrillation subsequently DVT prevention will be SCDs (7) Digoxin toxicity: History of Present Illness Primary Care Provider: [facility] Patient arrives appointed from [facility] he is a 73-year-old male who recently underwent evaluation for a TAVR and was felt to not have appropriate va sculature to access his TAVR. This was in the spring of this year where he was at [facility]. Surrounding that evaluation he did have an undetermined source of GI blood loss and received 2 units packed red blood cell transfusions. The patient subsequently did have a valvuloplasty with did not have significant success. He suffers from both systolic and diastolic chronic heart failure and according to the family which was not present at the bedside we will communicate this to the ER doctor, he was having increasing hallucinations of late at the senior living. Subsequently he was obtunded today brought to the emergency department and found to have hypercarbic respiratory failure with VBG pH of 7.18 and VBG PCO2 of 110. Patient does not have a history of COPD but did have a similar episode of carbadox and retention according to the family relates that [place]. Patient does have pulmonary hypertension previous lung injury including an empyema atrial fibrillation which is paroxysmal and he was deemed to be not a coagulation candidate due to his GI blood loss. Despite this fact his INR on presentation was elevated Patient is obtunded on BiPAP he does open his eyes slightly to voice and stimulus his family is not present Allergies Allergy/AdvReac Type Severity Reaction Status Date / Time No Known Allergies Allergy Verified 01/01/19 17:05 Home Medications Home Medications Medication Instructions Recorded Confirmed Type aspirin [Aspirin Low Dose] 81 mg PO DAILY 09/10/18 01/01/19 History cholecalciferol (vitamin D3) 1 cap PO QAM 09/10/18 01/01/19 History ferrous sulfate 325 mg PO BID 09/10/18 01/01/19 History metoprolol succinate 12.5 mg PO QPM 09/10/18 01/01/19 History sertraline 75 mg PO QPM 09/10/18 01/01/19 History atorvastatin 80 mg PO HS #30 tab 09/29/18 01/01/19 Rx furosemide 40 mg PO QAM #30 tab 09/29/18 01/01/19 Rx magnesium oxide 400 mg PO BID #60 tab 09/29/18 01/01/19 Rx pantoprazole 40 mg PO BID #0 tab 09/29/18 01/01/19 Rx acetaminophen [Mapap 650 mg PO Q6H PRN MDD 3G 01/01/19 01/01/19 History (acetaminophen)] alum-mag hydroxide-simeth [Maalox 30 ml PO QID PRN 01/01/19 01/01/19 History Advanced] digoxin 0.125 mg PO 3XWK 01/01/19 01/01/19 History latanoprost 1 drp OPB DAILY 01/01/19 01/01/19 History levothyroxine 75 mcg PO QAM 01/01/19 01/01/19 History multivitamin [Multiple Vitamins] 1 tab PO DAILY 01/01/19 01/01/19 History sacubitril-valsartan [Entresto] 1 tab PO BID 01/01/19 01/01/19 History sennosides-docusate sodium 1 tab PO HS 01/01/19 01/01/19 History [Senokot-S] Past Med/Surg History Medical History CAD in [place] artery HLD (hyperlipidemia) Hypertension Atrial fibrillation Chronic diastolic heart failure Chronic systolic heart failure Expressive aphasia Paroxysmal atrial fibrillation Surgical History H/O heart artery stent Family History Other Family history non-contributory Social History Preferred Language: Vietnamese Communication Ability: Effective Beliefs That Will Affect Care: None Current Living Situation: Alone Feels Safe at Home: Declines to Answer Smoking Status: Unknown if ever smoked Hx Alcohol Use: No Hx Substance Use: No Review of Systems Review of Systems: Unobtainable due to cognitive status Physical Exam Physical Exam: The patient appeared thin and in no distress on BiPAP Vital signs as documented. Head exam is unremarkable. normocephalic, atraumatic, the pupils reactive bilaterally but they were a lot smaller than would be appropriate to start with Neck is with mild jugular venous distension, thyromegaly, or lymphademopathy Lungs are clear to auscultation and percussion. No wheezes or focal air loss Cardiac exam reveals Rhythm is regular. Significant systolic murmur heard at the right upper sternal border Abdominal exam reveals normal bowel sounds, no masses, no organomegaly Extremities are mildly edematous and both pedal pulses are present but weak Neurologic exam is obtained it does withdraw extremities to painful stimuli Skin is warm Dry with some redness to his lower bilateral shins Results & Data Vital Signs (Past 12 Hours) Vital Signs Temp Pulse Pulse Resp BP BP Pulse Ox 01/01/19 15:59 66 24 109/75 96 01/01/19 15:42 77 22 100 01/01/19 14:32 63 16 123/84 100 01/01/19 14:12 98 01/01/19 13:54 36.4 C L 61 18 117/[address] head is unremarkable for acute injury Chest x-ray only has atelectasis most of the left base (1) Acute respiratory failure Respiratory failure complication: hypercapnia Qualified Code(s): J96.02 - Acute respiratory failure with hypercapnia (2) Atrial fibrillation Atrial fibrillation type: paroxysmal Qualified Code(s): I48.0 - Paroxysmal atrial fibrillation (3) Hypertension Hypertension type: essential hypertension Qualified Code(s): I10 - Essential (primary) hypertension
[2019-01-01] MEDS ORDERED: SUCCINYLCHOLINE CHLORIDE 20 MG/ML 10 ML VIAL IV ONE (19:10)
[2019-01-01] MEDS ORDERED: ETOMIDATE 2 MG/ML 20 ML VIAL IV ONE (19:10)
[2019-01-01] MEDS ORDERED: DIGOXIN 125 MCG in SYRINGE 9.5 ML IV SCH (19:37)
[2019-01-01] MEDS ORDERED: NORMOSOL-R 500 ML IV SCH (19:37)
[2019-01-01] MEDS ORDERED: ICU PROTOCOL FOR HYPERGLYCEMIA PRN (19:37)
--- NOTE | 2019-01-01 20:09 | Emergency Department Note ---
Entered by Monica Grace acting as a scribe for Marcus Madison M.D. History of Present Illness General Chief complaint: Unresponsive Source: EMS Mode of arrival: EMS History of Present Illness Onset (ago): unknown Location: left and right (generalized) Pain Consistency: + constant Associated symptoms: + other (unknown) This HPI is limited secondary to patient's mental status. The patient is a 73 year old male who presents to the Emergency Room with complaints of AMS since this morning. The patient was sent over from [facility] and was AMS this morning. The patient is now unresponsive. Per EMS, when they pinched him he flinched. His glucose was 101. Home Medications Home Medications Medication Instructions Recorded Confirmed Type aspirin [Aspirin Low Dose] 81 mg PO DAILY 09/10/18 01/01/19 History cholecalciferol (vitamin D3) 1 cap PO QAM 09/10/18 01/01/19 History ferrous sulfate 325 mg PO BID 09/10/18 01/01/19 History metoprolol succinate 12.5 mg PO QPM 09/10/18 01/01/19 History sertraline 75 mg PO QPM 09/10/18 01/01/19 History atorvastatin 80 mg PO HS #30 tab 09/29/18 01/01/19 Rx furosemide 40 mg PO QAM #30 tab 09/29/18 01/01/19 Rx magnesium oxide 400 mg PO BID #60 tab 09/29/18 01/01/19 Rx pantoprazole 40 mg PO BID #0 tab 09/29/18 01/01/19 Rx acetaminophen [Mapap 650 mg PO Q6H PRN MDD 3G 01/01/19 01/01/19 History (acetaminophen)] alum-mag hydroxide-simeth [Maalox 30 ml PO QID PRN 01/01/19 01/01/19 History Advanced] digoxin 0.125 mg PO 3XWK 01/01/19 01/01/19 History latanoprost 1 drp OPB DAILY 01/01/19 01/01/19 History levothyroxine 75 mcg PO QAM 01/01/19 01/01/19 History multivitamin [Multiple Vitamins] 1 tab PO DAILY 01/01/19 01/01/19 History sacubitril-valsartan [Entresto] 1 tab PO BID 01/01/19 01/01/19 History sennosides-docusate sodium 1 tab PO HS 01/01/19 01/01/19 History [Senokot-S] Allergies Allergy/AdvReac Type Severity Reaction Status Date / Time No Known Allergies Allergy Verified 01/01/19 17:05 Past Med/Surg History Medical History CAD in [place] artery HLD (hyperlipidemia) Hypertension Atrial fibrillation Chronic diastolic heart failure Chronic systolic heart failure Expressive aphasia Paroxysmal atrial fibrillation Surgical History H/O heart artery stent Family History Other Family history non-contributory Social History Preferred Language: Guyanese Communication Ability: Unable Steam Conditioner Operator Required: No Beliefs That Will Affect Care: None Current Living Situation: Family Current Living Situation Comment: daughter Other Information That Helps Us Care for You: No Feels Safe at Home: Declines to Answer Smoking Status: Former smoker Second Hand Exposure: No Hx Alcohol Use: No Hx Substance Use: No Review of Systems Unobtainable due to cognitive status Physical Exam Vital Signs Vital Signs - 24 hr 01/01/19 13:54 01/01/19 14:12 01/01/19 14:32 Temperature 36.4 C L Temperature Source Oral Sepsis Recent Fever Within 48 Hours No Sepsis New/Unexplained Change in Mental Status No Sepsis Action Taken by Nursing No Action Required Pulse Rate 61 Pulse Rate [Apical] 63 Pulse Rhythm [Apical] Pulse Strength [Apical] Respiratory Rate 18 16 Respiratory Effort / Characteristics Non-Labored Non-Labored Respiratory Depth Normal Normal Respiratory Pattern Regular Regular Blood Pressure 117/63 Blood Pressure [Right Arm] 123/84 Blood Pressure Mean 81 Blood Pressure Mean [Right Arm] 97 Blood Pressure Position [Right Arm] Pulse Oximetry 2 L 98 100 Oxygen Delivery Method Nasal Cannula Nasal Cannula Room Air Oxygen Flow Rate 99 2 Fraction of Inspired Oxygen SaO2/FiO2 Ratio 01/01/19 15:42 01/01/19 15:59 Temperature Temperature Source Sepsis Recent Fever Within 48 Hours Sepsis New/Unexplained Change in Mental Status Sepsis Action Taken by Nursing Pulse Rate 77 Pulse Rate [Apical] 66 Pulse Rhythm [Apical] Regular Pulse Strength [Apical] Normal Respiratory Rate 22 24 Respiratory Effort / Characteristics Non-Labored Spontaneous Non-Labored Spontaneous Respiratory Depth Normal Normal Respiratory Pattern Regular Blood Pressure Blood Pressure [Right Arm] 109/75 Blood Pressure Mean Blood Pressure Mean [Right Arm] 86 Blood Pressure Position [Right Arm] Lying Pulse Oximetry 100 96 Oxygen Delivery Method BiPAP Oxygen Flow Rate Fraction of Inspired Oxygen 30 35 SaO2/FiO2 Ratio 274 GENERAL: Awake, minimal response to painful stimuli, in no distress HENT: Normocephalic, atraumatic. Oropharynx unremarkable - dry. EYES: Normal conjunctiva. Sclera non-icteric. PERRL, 3mm. NECK: Supple. No nuchal rigidity. RESPIRATORY: Clear to auscultation but diminished. Normal respiratory effort. CARDIAC: Normal rate. Normal rhythm. Extremities warm and well perfused. GI: Soft, non-distended. No tenderness to palpation. No rebound or guarding. No masses. RECTAL: Deferred. MUSCULOSKELETAL: Atraumatic. Chest examination reveals no tenderness. LOWER EXTREMITIES: Calves are equal size bilaterally and non-tender. No edema NEURO: Withdraws to pain in all 4 extremities. Non-verbal at this time. Occasionally opens eyes to pain. SKIN: Warm and dry. No rash or jaundice noted. Course 1350: Past medical records reviewed. The patient was evaluated in room B1. A complete history and physical exam was performed. 1445: I spoke to the patient's daughter. She states he has had occasional hallucinations over the last several days. 1547: I discussed the patient's case with Dr. Quintero, [facility] Hospitalist. He agrees to evaluate the patient for further management and care. Consultations Consultation #1: I discussed the patient's case with Dr. Quintero, [facility] Hospitalist. He agrees to evaluate the patient for further management and care. Time: 15:47 Administered Medications Discontinued Medications Furosemide (Lasix) 40 mg IV NOW STA Stop: 01/01/19 15:35 Last Admin: 01/01/19 15:57 Dose: 40 mg Documented by: [id number] Naloxone HCl (Narcan) 0.4 mg IV NOW STA Stop: 01/01/19 13:55 Last Admin: 01/01/19 14:10 Dose: 0.4 mg Documented by: [id number] Medical Decision Making Differential Diagnosis Etiologies such as metabolic, infection, hypoglycemia, electrolyte abnormalities, cardiac sources, intracerebral event, toxicologic, neurologic, as well as others were entertained. Medical Records Attestation: I reviewed the patient's medical records. Home Medications Current Medication List: was personally reviewed by me Laboratory Data Attestation: I reviewed the patient's lab results. Result diagrams: 01/01/19 14:52 01/01/19 14:52 Lab Results 01/01/19 01/01/19 01/01/19 Range/Units 14:10 14:52 14:52 WBC (4.8-10.8) K/uL RBC (4.7-6.1) M/uL Hgb (14.0-18.0) g/dL Hct (42-52) % MCV (80-100) fL MCH (25-34) pg MCHC (32-36) g/dL RDW Std Deviation (36.4-46.3) fL RDW Coeff of Jessica (11.5-14.5) % Plt Count (130-400) K/uL MPV (7.4-10.4) fL Immature Gran % (Auto) % Neut % (Auto) % Lymph % (Auto) % [place] % (Auto) % Eos % (Auto) % Baso % (Auto) % Immature Gran # (Auto) (0.00-0.02) K/uL Neut # (Auto) (1.4-6.5) K/uL Lymph # (Auto) (1.2-3.4) K/uL [place] # (Auto) (0.11-0.59) K/uL Eos # (Auto) (0-0.5) K/uL Baso # (Auto) (0-0.2) K/uL PT 19.2 H (9.0-12.0) Seconds INR 2.0 H (0.9-1.1) VBG pH (7.36-7.41) VBG pCO2 (38-50) mmHg VBG pO2 mmHg VBG HCO3 mmol/L VBG O2 Saturation % VBG Base Excess mEq/L Barometric Pressure mm/Hg Sodium (136-145) mmol/L Potassium (3.5-5.1) mmol/L Chloride (98-107) mmol/L Carbon Dioxide (21-32) mmol/L Anion Gap (3-11) BUN (7-18) mg/dl Creatinine (0.6-1.4) mg/dl Est Cr Clr Drug Dosing Est GFR ( Amer) Est GFR (Non-Af Amer) BUN/Creatinine Ratio (10-20) Glucose (70-99) mg/dl Calcium (8.5-10.1) mg/dl Magnesium (1.8-2.4) mg/dl Total Bilirubin (0.2-1) mg/dl AST (15-37) U/L ALT (12-78) U/L Alkaline Phosphatase (45-117) U/L Ammonia 14.0 (11-32) umol/L Troponin I (0-0.045) ng/ml Total Protein (6.4-8.2) gm/dl Albumin (3.4-5.0) gm/dl Globulin (2.5-4.0) gm/dl Albumin/Globulin Ratio (0.9-2) TSH (0.300-4.500) uIu/ml Free T4 (0.8-1.6) ng/dl Urine Color Dark Yellow Urine Appearance Clear (Clear) Urine pH 5.0 (4.5-7.5) Ur Specific [place] 1.019 (1.000-1.030) Urine Protein 1+ H (Negative) Urine Glucose (UA) Negative (Negative) Urine Ketones Negative (Negative) Urine Blood Trace H (Negative) Urine Nitrite Negative (Negative) Urine Bilirubin Negative (Negative) Urine Urobilinogen Negative (Negative) Ur Leukocyte Esterase Negative (Negative) Urine WBC (Auto) 1-5 (0-5) /hpf Urine RBC (Auto) 0-4 (0-4) /hpf U Hyaline Cast (Auto) 10-30 H (0-5) /lpf U Epithel Cells (Auto) >30 H (0-5) /lpf Urine Bacteria (Auto) Negative (Negative) Digoxin (0.8-2.0) ng/ml 01/01/19 01/01/19 01/01/19 Range/Units 14:52 14:52 14:52 WBC 6.90 (4.8-10.8) K/uL RBC 3.55 L (4.7-6.1) M/uL Hgb 10.3 L (14.0-18.0) g/dL Hct 34.5 L (42-52) % MCV 97.2 (80-100) fL MCH 29.0 (25-34) pg MCHC 29.9 L (32-36) g/dL RDW Std Deviation 61.8 H (36.4-46.3) fL RDW Coeff of Jessica 17.8 H (11.5-14.5) % Plt Count 212 (130-400) K/uL MPV 9.6 (7.4-10.4) fL Immature Gran % (Auto) 0.9 % Neut % (Auto) 84.6 % Lymph % (Auto) 6.4 % [place] % (Auto) 7.1 % Eos % (Auto) 0.4 % Baso % (Auto) 0.6 % Immature Gran # (Auto) 0.06 H (0.00-0.02) K/uL Neut # (Auto) 5.84 (1.4-6.5) K/uL Lymph # (Auto) 0.44 L (1.2-3.4) K/uL [place] # (Auto) 0.49 (0.11-0.59) K/uL Eos # (Auto) 0.03 (0-0.5) K/uL Baso # (Auto) 0.04 (0-0.2) K/uL PT (9.0-12.0) Seconds INR (0.9-1.1) VBG pH 7.18 L (7.36-7.41) VBG pCO2 110 H (38-50) mmHg VBG pO2 37 mmHg VBG HCO3 40 mmol/L VBG O2 Saturation < 60.0 % VBG Base Excess 8.4 mEq/L Barometric Pressure 731.0 mm/Hg Sodium (136-145) mmol/L Potassium (3.5-5.1) mmol/L Chloride (98-107) mmol/L Carbon Dioxide (21-32) mmol/L Anion Gap (3-11) BUN (7-18) mg/dl Creatinine (0.6-1.4) mg/dl Est Cr Clr Drug Dosing Est GFR ( Amer) Est GFR (Non-Af Amer) BUN/Creatinine Ratio (10-20) Glucose (70-99) mg/dl Calcium (8.5-10.1) mg/dl Magnesium (1.8-2.4) mg/dl Total Bilirubin (0.2-1) mg/dl AST (15-37) U/L ALT (12-78) U/L Alkaline Phosphatase (45-117) U/L Ammonia (11-32) umol/L Troponin I (0-0.045) ng/ml Total Protein (6.4-8.2) gm/dl Albumin (3.4-5.0) gm/dl Globulin (2.5-4.0) gm/dl Albumin/Globulin Ratio (0.9-2) TSH (0.300-4.500) uIu/ml Free T4 (0.8-1.6) ng/dl Urine Color Urine Appearance (Clear) Urine pH (4.5-7.5) Ur Specific [place] (1.000-1.030) Urine Protein (Negative) Urine Glucose (UA) (Negative) Urine Ketones (Negative) Urine Blood (Negative) Urine Nitrite (Negative) Urine Bilirubin (Negative) Urine Urobilinogen (Negative) Ur Leukocyte Esterase (Negative) Urine WBC (Auto) (0-5) /hpf Urine RBC (Auto) (0-4) /hpf U Hyaline Cast (Auto) (0-5) /lpf U Epithel Cells (Auto) (0-5) /lpf Urine Bacteria (Auto) (Negative) Digoxin 2.1 H (0.8-2.0) ng/ml 01/01/19 Range/Units 14:52 WBC (4.8-10.8) K/uL RBC (4.7-6.1) M/uL Hgb (14.0-18.0) g/dL Hct (42-52) % MCV (80-100) fL MCH (25-34) pg MCHC (32-36) g/dL RDW Std Deviation (36.4-46.3) fL RDW Coeff of Jessica (11.5-14.5) % Plt Count (130-400) K/uL MPV (7.4-10.4) fL Immature Gran % (Auto) % Neut % (Auto) % Lymph % (Auto) % [place] % (Auto) % Eos % (Auto) % Baso % (Auto) % Immature Gran # (Auto) (0.00-0.02) K/uL Neut # (Auto) (1.4-6.5) K/uL Lymph # (Auto) (1.2-3.4) K/uL [place] # (Auto) (0.11-0.59) K/uL Eos # (Auto) (0-0.5) K/uL Baso # (Auto) (0-0.2) K/uL PT (9.0-12.0) Seconds INR (0.9-1.1) VBG pH (7.36-7.41) VBG pCO2 (38-50) mmHg VBG pO2 mmHg VBG HCO3 mmol/L VBG O2 Saturation % VBG Base Excess mEq/L Barometric Pressure mm/Hg Sodium 143 (136-145) mmol/L Potassium 4.3 (3.5-5.1) mmol/L Chloride 99 (98-107) mmol/L Carbon Dioxide 40 H (21-32) mmol/L Anion Gap 4.0 (3-11) BUN 26 H (7-18) mg/dl Creatinine 1.46 H (0.6-1.4) mg/dl Est Cr Clr Drug Dosing Not Reportable Est GFR ( Amer) 53.8 Est GFR (Non-Af Amer) 46.4 BUN/Creatinine Ratio 17.7 (10-20) Glucose 96 (70-99) mg/dl Calcium 9.3 (8.5-10.1) mg/dl Magnesium 2.8 H (1.8-2.4) mg/dl Total Bilirubin 0.7 (0.2-1) mg/dl AST 41 H (15-37) U/L ALT 36 (12-78) U/L Alkaline Phosphatase 171 H (45-117) U/L Ammonia (11-32) umol/L Troponin I 0.626 H* (0-0.045) ng/ml Total Protein 6.7 (6.4-8.2) gm/dl Albumin 3.2 L (3.4-5.0) gm/dl Globulin 3.5 (2.5-4.0) gm/dl Albumin/Globulin Ratio 0.9 (0.9-2) TSH 8.160 H (0.300-4.500) uIu/ml Free T4 0.88 (0.8-1.6) ng/dl Urine Color Urine Appearance (Clear) Urine pH (4.5-7.5) Ur Specific [place] (1.000-1.030) Urine Protein (Negative) Urine Glucose (UA) (Negative) Urine Ketones (Negative) Urine Blood (Negative) Urine Nitrite (Negative) Urine Bilirubin (Negative) Urine Urobilinogen (Negative) Ur Leukocyte Esterase (Negative) Urine WBC (Auto) (0-5) /hpf Urine RBC (Auto) (0-4) /hpf U Hyaline Cast (Auto) (0-5) /lpf U Epithel Cells (Auto) (0-5) /lpf Urine Bacteria (Auto) (Negative) Digoxin (0.8-2.0) ng/ml Imaging Data Radiologist's Impression: Radiology results as stated below per my review and the radiologist's interpretation: XR chest 1V portable CLINICAL HISTORY: Weakness. COMPARISON STUDY: Chest radiograph September 24, 2018. FINDINGS: Left basilar opacity is unchanged. This favors atelectasis. There are small bilateral pleural effusions. Mild pulmonary edema is noted. This is decreased when compared to exam of September 24, 2018. Cardiomegaly is unchanged. There is no pneumothorax. IMPRESSION: 1. Mild pulmonary edema. 2. Small bilateral pleural effusions. 3. Left basilar opacity which favors atelectasis. Electronically signed by: Lonnie Almanza M.D. 01/01/2019 2:[address] head/brain wo con CLINICAL HISTORY: 73 years-old Male presenting with ams. TECHNIQUE: Multidetector CT imaging of the head was performed without the use of intravenous contrast. IV contrast: None. One or more dose lowering techniques were used consistent with the principles of ALARA (as low as reasonably achievable), including automatic exposure control, mA or kV adjustment to individual patient size, and/or use of iterative reconstruction. COMPARISON: None. CT DOSE (mGy.cm): The estimated cumulative dose is 1228.53 mGy.cm. FINDINGS: Tobacco Sample Puller topogram: Unremarkable. Proportional ventricular and sulcal prominence, likely age-related parenchymal volume loss. No hemorrhage. Periventricular and subcortical white matter hypoattenuation, nonspecific but likely indicative of chronic small vessel ischemic change. No acute territorial infarct. No mass effect or midline shift. No extra-axial fluid collection. Paranasal sinuses and mastoid air cells clear. Calvarium intact. IMPRESSION: 1. Chronic small vessel ischemic change. No acute intracranial abnormality. Electronically signed by: Alex Ross M.D. 01/01/2019 2:29 PM ECG Data Attestation: I personally reviewed and interpreted this ECG as follows: Indication: altered mental status Rate (beats per minute): 62 Rhythm: sinus rhythm Findings: + 1st degree AV block, + PVC and + ST depression (lateral); no ST elevation Comparison ECG Date: from (09/13/18) Change: no significant change (not tachycardic today) Blood Pressure Blood Pressure Findings: Normal blood pressure Blood Pressure Disposition: further management by hospitalist MDM Narrative Patient has a 73-year-old male presenting from nursing facility today found altered this morning. Unresponsive. Per EMS blood sugar normal and minimal grimace with transfer. Here only on painful stimuli do see any grimace. Pupils are 3 mm minimally reactive bilaterally. Given some Narcan minimal improvement. CT head was completed off broad infectious and metabolic work-up. No fever. N o history of trauma or physical evidence of this. Ammonia and VBG was sent as well. CT head is unremarkable. Chest x-ray shows some questionable pulmonary edema. Narcan had no significant effect here. Ammonia is within normal limits. Given low bit of Lasix but does have a little bit of acute kidney injury likely. Patient's VBG noted to be acidotic with hypercarbia. Again not hypoxic. Does not appear to be any significant COPD history or smoking history. Digoxin level just above therapeutic window do not believe significantly toxic. Doubt this is ACS, could be secondary to his CHF/valve disease and demand. Unsure of INR elevation. Put on BiPAP to help with his hypercarbia and altered mental status. Again unsure of the exact cause of his hypercarbia. Discussed with daughter states this has happened before but unclear on reason why. Hospitalist contacted for admission. Full code reported by daughter. Impression & Plan Acute respiratory failure, Altered mental status, Non-ST elevation myocardial infarction (NSTEMI) Critical Care Time Critical Care Time: Yes Total Critical Care Time: 35 I have personally spent 35 minutes of critical care time in the direct management of this patient. This includes bedside care, interpretation of diagnostic studies, and testing, discussion with consultants, patient, and family members, and other required patient management activities. This 35 minutes is in excess of all separately billable procedures. Discharge Plan Visit Data *Final* Discharge Date/Time: 01/01/19 18:15 Chief Complaint: Unresponsive ED Provider: Marcus Madison Discharge Problem: Acute respiratory failure, Altered mental status, Non-ST elevation myocardial infarction (NSTEMI) Patient Disposition: Admitted As Inpatient Discharge Instructions Interventions: ED Discharge Assessment Last Done: 01/01/19 18:15 Discharge Problem: Acute respiratory failure Qualifiers: Respiratory failure complication: hypercapnia Qualified Code(s): J96.02 - Acute respiratory failure with hypercapnia Altered mental status Qualifiers: Altered mental status type: unspecified Qualified Code(s): R41.82 - Altered mental status, unspecified The scribe's documentation has been prepared under my direction and personally reviewed by me in its entirety. I confirm that the note above accurately reflect s all work, treatment, procedures, and medical decision making performed by me.
--- NOTE | 2019-01-01 21:06 | Critical Care Consultation ---
Date of Consultation January 01, 2019 Assessment & Plan (1) Acute respiratory failure: Reason Critically Ill: 73-year-old male with acute hypercapnic respiratory failure and altered mental status PLAN: Neuro: Acute encephalopathy -Metabolic likely secondary to hypercapnic respiratory failure Resp: Acute hypercapnic respiratory failure: Improving -Noninvasive mechanical ventilation CV: History of chronic systolic and diastolic congestive heart failure -Elevated troponins Abnormal EKG Elevated digoxin level: Digoxin toxicity Fluids/Renal: Elevated bicarb -Metabolic compensation for acute on chronic respiratory acidosis Acute kidney injury -Gentle hydration with Normosol at 80 mL's per hour ID: Afebrile GI/Nutrition: N.p.o. Elevated alkaline phosphatase Heme: Anemia -At baseline DVT prophylaxis: Therapeutic INR: Unclear if this is related to systemic anticoagulation or nutritional deficiency Endocrine: ICU hyperglycemia protocol Vascular access: Peripheral IVs Code Status: Full code Patient has had several admissions to the hospital, may benefit from palliative care consultation during the week to further elucidate goals of care I have personally spent 40 minutes of critical care time in the direct management of this patient. This is a life/limb threatening event. This includes time spent evaluating patient, direct bedside care, chart review, placing orders, interpretation of diagnostic studies, discussion with consultants, patient, and/or family members regarding treatment decisions, as well as other required patient management activities. This time is exclusive of all separately billable procedures, and teaching time and separate from and in addition to any other critical care service time. (2) Elevated international normalized ratio (INR): (3) Hypercapnia: (4) JAVIER (acute kidney injury): (5) Elevated troponin: Supervising Physician Co-Signing Physician Notes Dr. Petty was resident physician during care of patient. I separately evaluated patient for lock portions of the history and the exam. I was present during the critical portion of medical decision making, and I discussed the case with the resident. I generally agree with the findings and plan. History of Present Illness Attending Physician: Raman Quintero MD History obtained from medical records and hospitalist Patient presented from personal alf for increasing somnolence and low respiratory rate. In the emergency department he was given a small dose of Narcan which improved his respiratory rate and initiated on noninvasive mechanical ventilation. He had a fairly complex medical history and was seen at [facility] for possible endovascular repair of a aortic valve however he ultimately developed GI bleed with unclear source and was felt not an appropriate candidate due to vasculature and underwent a valvuloplasty. He is not on systemic anticoagulation secondary to GI bleeding of unclear source who has atrial fibrillation. He is known to suffer from both systolic and diastolic chronic heart failure. Allergies Allergy/AdvReac Type Severity Reaction Status Date / Time No Known Allergies Allergy Verified 01/01/19 17:05 Home Medications Home Medications Medication Instructions Recorded Confirmed Type aspirin [Aspirin Low Dose] 81 mg PO DAILY 09/10/18 01/01/19 History cholecalciferol (vitamin D3) 1 cap PO QAM 09/10/18 01/01/19 History ferrous sulfate 325 mg PO BID 09/10/18 01/01/19 History metoprolol succinate 12.5 mg PO QPM 09/10/18 01/01/19 History sertraline 75 mg PO QPM 09/10/18 01/01/19 History atorvastatin 80 mg PO HS #30 tab 09/29/18 01/01/19 Rx furosemide 40 mg PO QAM #30 tab 09/29/18 01/01/19 Rx magnesium oxide 400 mg PO BID #60 tab 09/29/18 01/01/19 Rx pantoprazole 40 mg PO BID #0 tab 09/29/18 01/01/19 Rx acetaminophen [Mapap 650 mg PO Q6H PRN MDD 3G 01/01/19 01/01/19 History (acetaminophen)] alum-mag hydroxide-simeth [Maalox 30 ml PO QID PRN 01/01/19 01/01/19 History Advanced] digoxin 0.125 mg PO 3XWK 01/01/19 01/01/19 History latanoprost 1 drp OPB DAILY 01/01/19 01/01/19 History levothyroxine 75 mcg PO QAM 01/01/19 01/01/19 History multivitamin [Multiple Vitamins] 1 tab PO DAILY 01/01/19 01/01/19 History sacubitril-valsartan [Entresto] 1 tab PO BID 01/01/19 01/01/19 History sennosides-docusate sodium 1 tab PO HS 01/01/19 01/01/19 History [Senokot-S] Patient History Medical History CAD in [place] artery HLD (hyperlipidemia) Hypertension Atrial fibrillation Chronic diastolic heart failure Chronic systolic heart failure Expressive aphasia Paroxysmal atrial fibrillation Surgical History H/O heart artery stent Family History Other Family history non-contributory Social History Preferred Language: Wallisian Communication Ability: Unable Assistant Professor Of Communication Required: No Beliefs That Will Affect Care: None Current Living Situation: Family Current Living Situation Comment: daughter Other Information That Helps Us Care for You: No Feels Safe at Home: Declines to Answer Smoking Status: Former smoker Second Hand Exposure: No Hx Alcohol Use: No Hx Substance Use: No Review of Systems Review of Systems: Unobtainable due to reduced consciousness Physical Exam Constitutional: + frail appearing Somnolent Eyes: PERRL, conjunctivae normal, anicteric sclerae Respiratory: + labored breathing and + uses accessory muscles Auscultation: + diminished lung sounds Diminished lung sounds Cardiovascular: Rate/Rhythm: regular rate and regular rhythm Heart Sounds: + murmur (Loud systolic murmur appreciated) Gastrointestinal (Abdomen): Percussion/Palpation: abdomen soft; abdomen nontender (difficult to assess due to somnolence) Results & Data Vital Signs (Past 12 Hours) Vital Signs Temp Pulse Pulse Resp BP BP Pulse Ox 01/01/19 18:46 36.3 C L 61 18 118/51 L 98 01/01/19 18:42 76 99 01/01/19 17:55 61 20 118/58 L 94 01/01/19 17:15 63 20 134/56 L 94 01/01/19 15:59 66 24 109/75 96 01/01/19 15:42 77 22 100 01/01/19 14:32 63 16 123/84 100 01/01/19 14:12 98 01/01/19 13:54 36.4 C L 61 18 117/63 2 L Critical Care Time Critical Care Time: Yes Total Critical Care Time: 40 (1) Acute respiratory failure Respiratory failure complication: hypercapnia Qualified Code(s): J96.02 - Acute respiratory failure with hypercapnia
[2019-01-01] MEDS: METOPROLOL TARTRATE 1 MG/ML VIAL IV SCH (21:52)
[2019-01-02] MEDS: METOPROLOL TARTRATE 1 MG/ML VIAL IV SCH ×4 (00:03→12:21)
[2019-01-02 04:50] LABS: INR 1.8 (0.9-1.1); Prothrombin Time 17.9 Seconds (9.0-12.0)
[2019-01-02 05:09] LABS: Calcium 8.7 mg/dl (8.5-10.1); Est GFR (Non-African American) 54.4; Magnesium 2.6 mg/dl (1.8-2.4); Potassium 4.4 mmol/L (3.5-5.1)
[2019-01-02 05:23] LABS: Basophils # (auto) 0.02 K/uL (0-0.2); Basophils % (auto) 0.2 %; Eosinophils # (auto) 0.04 K/uL (0-0.5); Eosinophils % (auto) 0.5 %; Hematocrit (blood only) 38.8 % (42-52); Hemoglobin 11.1 g/dL (14.0-18.0); Immature Granulocytes # (auto) 0.09 K/uL (0.00-0.02); Immature Granulocytes % (auto) 1.1 %; Lymphocytes % (auto) 6.1 %; Mean Corpuscular Hgb Conc 28.6 g/dL (32-36); Mean Corpuscular Volume 100.8 fL (80-100); Monocytes # (auto) 0.61 K/uL (0.11-0.59); Monocytes % (auto) 7.4 %; Neutrophils # (auto) 6.99 K/uL (1.4-6.5); Neutrophils % (auto) 84.7 %; Platelet Count 227 K/uL (130-400); Red Blood Count 3.85 M/uL (4.7-6.1); White Blood Count 8.25 K/uL (4.8-10.8)
--- NOTE | 2019-01-02 05:42 | Critical Care Progress Note ---
Date of Service January 02, 2019 Assessment & Plan (1) Elevated troponin: Reason Critically Ill: 73-year-old male with acute hypercapnic respiratory failure and altered mental status PLAN: Neuro: Acute encephalopathy -Metabolic likely secondary to hypercapnic respiratory failure Resp: Acute hypercapnic respiratory failure Patient became hypotensive and bradycardic Ordered ABG with pH of 6.9 Patient was intubated and arterial line placed Aggressively ventilated patient and his pressure and rate began to improve. CV: History of chronic systolic and diastolic congestive heart failure -Elevated troponins Abnormal EKG Echo today Elevated digoxin level: Digoxin toxicity Fluids/Renal: Elevated bicarb -Metabolic compensation for acute on chronic respiratory acidosis Acute kidney injury -Gentle hydration with Normosol at 80 mL's per hour ID: Afebrile GI/Nutrition: N.p.o. Elevated alkaline phosphatase As patient became more alert it became clear he had a very tender abdomen. Sent for abdominal CT Heme: Therapeutic INR: Unclear if this is related to systemic anticoagulation or nutritional deficiency Gi bleed: Melenotic stool with small clots Will trend hemoglobin q6h Endocrine: ICU hyperglycemia protocol Vascular access: Peripheral IVs arterial line Code Status: Full code Patient has had several admissions to the hospital, may benefit from palliative care consultation during the week to further elucidate goals of care (2) JAVIER (acute kidney injury): (3) Hypercapnia: (4) Elevated international normalized ratio (INR): (5) Digoxin toxicity: (6) Acute respiratory failure: (7) Altered mental status: (8) Non-ST elevation myocardial infarction (NSTEMI): (9) Encephalopathy acute: (10) Hypotension: (11) Acute blood loss anemia: Supervising Physician Co-Signing Physician Notes Dr. Petty was resident physician during care of patient. I separately evaluated patient for lock portions of the history and the exam. I was present during the critical portion of medical decision making, and I discussed the case with the resident. I generally agree with the findings and plan. Patient with worsening acute hypercapnic respiratory failure. Requiring intubation mechanical ventilation I discussed the case with the hospitalist Dr. Carter. Patient has long-standing cardiovascular history, previous history of GI bleeding without finding source, his functional status continues to decline per Dr. Carter, we discussed patient's likely poor prognosis. He certainly appears to be moving towards an end-stage terminal condition. Multiple providers have not seen the patient without an acute encephalopathy raising the question is this a chronic encephalopathy/dementia state that patient is entered. I have personally spent 40 minutes of critical care time in the direct management of this patient. This is a life/limb threatening event. This includes time spent evaluating patient, direct bedside care, chart review, placing orders, interpretation of diagnostic studies, discussion with consultants, patient, and/or family members regarding treatment decisions, as well as other required patient management activities. This time is exclusive of all separately billable procedures, and teaching time and separate from and in addition to any other critical care service time. Subjective Mr. Rizo continues to be somnolent for me this morning. He's currently on BiPAP. Rousable without too much effort to make eye contact, but then quickly falls back asleep. No family at bedside Review of Systems Review of Systems: Unobtainable due to reduced consciousness Physical Exam Constitutional: + ill appearing, + frail appearing and + lethargic; no acute distress Eyes: PERRL, conjunctivae normal, anicteric sclerae Respiratory: + labored breathing and + uses accessory muscles; + not able to speak in complete sentence Auscultation: + diminished lung sounds (right worse than left) Results & Data Vital Signs (Past 12 Hours) Vital Signs Temp Pulse Pulse Resp BP BP Pulse Ox 01/02/19 04:15 58 L 01/02/19 00:49 61 20 96 01/02/19 00:03 59 L 119/56 L 01/01/19 22:28 61 22 96 01/01/19 21:52 62 114/54 L 01/01/19 19:15 61 18 96 01/01/19 18:46 36.3 C L 61 18 118/51 L 98 01/01/19 18:42 76 99 01/01/19 17:55 61 20 118/58 L 94 Critical Care Time Critical Care Time: Yes Total Critical Care Time: 40 Resident Activity Tracking Resident Involvement: Resident Care Provided Care Provided: Adult Hospital Medicine (1) Acute respiratory failure Respiratory failure complication: hypercapnia Qualified Code(s): J96.02 - Acute respiratory failure with hypercapnia (2) Altered mental status Altered mental status type: unspecified Qualified Code(s): R41.82 - Altered mental status, unspecified (3) Hypotension Hypotension type: other hypotension type Qualified Code(s): I95.89 - Other hypotension
[2019-01-02] MEDS: LEVOTHYROXINE SODIUM 50 MCG TABLET PO SCH (07:11)
--- NOTE | 2019-01-02 08:53 | XRay Report ---
XR chest 1V portable CLINICAL HISTORY: 73 years-old Male presenting with Hypoxemic Respiratory failure. TECHNIQUE: Portable upright AP view of the chest was obtained. COMPARISON: 01/01/2019. FINDINGS: Atherosclerosis of the aortic arch. Cardiac silhouette enlarged. Pulmonary vascular prominence stable to slightly decreased in prominence with decreased bronchial wall thickening and interstitial promin ence. Blunting of the bilateral costophrenic angles may indicate small effusions similar to prior. Pe rsistent left retrocardiac opacity. Mild hyperinflation. No pneumothorax. Degenerative changes of the thoracic spine. External leads project over the upper abdomen. IMPRESSION: 1. Cardiomegaly with decreasing volume overload and congestive change. No ale pulmonary edema on t he current exam. 2. Small bilateral pleural effusions suspected. 3. Persistent left basilar atelectasis, which may in part be due to cardiomegaly. Electronically signed by: Alex Ross M.D. 01/02/2019 8:52 AM
[2019-01-02] MEDS ORDERED: VANCOMYCIN CONSULT ACTIVE PRN (14:37)
[2019-01-02] MEDS ORDERED: VANCOMYCIN HCL 1,500 MG in SODIUM CHLORIDE 0.9% 500 ML IV ONE (15:00)
--- NOTE | 2019-01-02 15:08 | Pharmacy Report ---
Pharmacy Abx Initial Consult - Date of Service January 02, 2019 - Pharmacy Dosing Scope Date of Consult: 01/02/19 Consultation requested by: Dr. Petty Pharmacy is consulted to initiate Vancomycin IV dosing therapy, order appropriate labs and adjust drug dose/frequency. - Subjective The patient is a 73 year old M admitted on 01/01/19 16:38. - Objective Height: 5 ft 9 in Weight: 60.8 kg Vital Signs (Past 12hrs): Vital Signs Temp Temp Pulse Pulse Resp BP BP 01/02/19 14:43 58 L 21 01/02/19 14:35 35.3 C L 01/02/19 14:17 35.3 C L 57 L 22 87/43 L 01/02/19 14:16 35.3 C L 58 L 23 80/41 L 01/02/19 14:00 35.3 C L 57 L 25 H 88/44 L 01/02/19 13:01 59 L 21 101/54 L 01/02/19 13:00 58 L 22 01/02/19 12:21 59 L 98/46 L 01/02/19 12:19 59 L 23 98/48 L 01/02/19 12:01 60 21 01/02/19 12:00 35.1 C L 59 L 59 L 22 101/48 L 98/48 L 01/02/19 11:37 59 L 22 01/02/19 11:01 58 L 20 01/02/19 11:00 58 L 19 104/48 L 01/02/19 10:01 55 L 18 103/47 L 01/02/19 10:00 34.7 C L 57 L 17 01/02/19 09:42 62 112/52 L 01/02/19 09:01 61 20 01/02/19 09:00 60 17 112/52 L 01/02/19 08:11 58 L 20 01/02/19 08:01 63 17 01/02/19 08:00 35.2 C L 61 61 18 111/56 L 113/50 L 01/02/19 07:01 61 15 01/02/19 07:00 61 16 113/53 L 01/02/19 06:01 59 L 19 01/02/19 06:00 58 L 16 114/51 L 01/02/19 05:01 60 16 01/02/19 05:00 59 L 18 115/54 L 01/02/19 04:15 58 L 01/02/19 04:01 36 C L 56 L 16 01/02/19 04:00 56 L 18 115/59 L Pulse Ox Pulse Ox 01/02/19 14:43 98 01/02/19 14:35 01/02/19 14:17 98 01/02/19 14:16 98 01/02/19 14:00 98 01/02/19 13:01 98 01/02/19 13:00 97 01/02/19 12:21 01/02/19 12:19 91 01/02/19 12:01 94 01/02/19 12:00 95 01/02/19 11:37 92 01/02/19 11:01 92 01/02/19 11:00 93 01/02/19 10:01 92 01/02/19 10:00 94 01/02/19 09:42 01/02/19 09:01 92 01/02/19 09:00 92 01/02/19 08:11 94 01/02/19 08:01 95 01/02/19 08:00 95 95 01/02/19 07:01 96 01/02/19 07:00 96 01/02/19 06:01 95 01/02/19 06:00 95 01/02/19 05:01 95 01/02/19 05:00 95 01/02/19 04:15 01/02/19 04:01 94 01/02/19 04:00 94 Lab Results (24hrs): Laboratory Tests (24 Hours) 01/02/19 01/02/19 01/01/19 04:11 04:11 14:52 WBC 8.25 Neut # (Auto) 6.99 H Creatinine 1.28 1.46 H Est Cr Clr Drug Dosing 43.0 Not Reportable 01/01/19 14:52 WBC 6.90 Neut # (Auto) 5.84 Creatinine Est Cr Clr Drug Dosing - Risk Factors for Resistance * Resident in a [facility] or extended-care facility - Assessment & Plan Assessment 73 year old M presented to ED from [facility] for increasing somnolence and low respiratory rate. He was given narcan in the ED, which did slightly improve his respiratory rate. Vancomycin only ordered empirically for 48 hours, will need to follow up on duration of therapy, if deemed necessary. MRSA Swab negative Pt afebrile, WBC 8.25. Plan Vancomycin and Cefepime for treatment of possible pulmonary source. Vancomycin IV * Estimated PK Parameters: Vd 0.7 L/kg, Camron 0.04 hr-1, t1/2 17 hr * Loading dose: 1500 mg (25 mg/kg) * Maintenance dose: 1000 mg IV (16.4 mg/kg) every 22 hours * Goal trough level : 15 to 20 mcg/mL * Will order level at appropriate interval if therapy continues >48 hours. Cefepime * Pharmacy not consulted, but dose is appropriate for renal function/clinical indication. * CrCl 30-60 mL/min: * Target dose: 2 gm Q8H --> 2 gm Q12 hrs for pulmonary indication. Pharmacy will continue to follow and will adjust dose/frequency as necessary. Thank you.
[2019-01-02] MEDS ORDERED: SODIUM BICARB 8.4% INJ 50 MEQ/50 ML SYR ONE (15:25)
[2019-01-02] MEDS ORDERED: RAPID SEQUENCE INDUCTION BAG ONE (15:26)
[2019-01-02] MEDS ORDERED: SODIUM BICARB 8.4% INJ 50 MEQ/50 ML SYR IV STA (15:38)
[2019-01-02 15:41] LABS: Albumin Level 3.3 gm/dl (3.4-5.0); BUN Creatinine Ratio 17.8 (10-20); Bilirubin,Total 0.7 mg/dl (0.2-1); Calcium 8.9 mg/dl (8.5-10.1); Creatinine Clr Calc Pharmacy 29.8 ml/min; Est GFR (African American) 40.6; Est GFR (Non-African American) 35.1; Globulin 3.3 gm/dl (2.5-4.0); Potassium 4.9 mmol/L (3.5-5.1); Total Protein 6.6 gm/dl (6.4-8.2)
[2019-01-02] MEDS: CEFEPIME 2,000 MG in SYRINGE 7.5 ML IV SCH (15:41)
[2019-01-02 16:06] LABS: Basophils # (auto) 0.01 K/uL (0-0.2); Basophils % (auto) 0.1 %; Hematocrit (blood only) 40.5 % (42-52); Hemoglobin 11.3 g/dL (14.0-18.0); Immature Granulocytes # (auto) 0.09 K/uL (0.00-0.02); Immature Granulocytes % (auto) 0.9 %; Lymphocytes # (auto) 0.26 K/uL (1.2-3.4); Lymphocytes % (auto) 2.5 %; Mean Corpuscular Hgb Conc 27.9 g/dL (32-36); Mean Corpuscular Volume 104.1 fL (80-100); Mean Platelet Volume 10.3 fL (7.4-10.4); Monocytes # (auto) 0.64 K/uL (0.11-0.59); Monocytes % (auto) 6.1 %; Neutrophils # (auto) 9.56 K/uL (1.4-6.5); Neutrophils % (auto) 90.4 %; Ovalocytes 1+; Platelet Count 298 K/uL (130-400); RDW Standard Deviation 67.9 fL (36.4-46.3); Red Blood Count 3.89 M/uL (4.7-6.1); Schistocytes 1+; White Blood Count 10.56 K/uL (4.8-10.8)
--- NOTE | 2019-01-02 16:09 | XRay Report ---
XR chest 1V portable CLINICAL HISTORY: 73 years-old Male presenting with POST INTUBATION. TECHNIQUE: Portable upright AP view of the chest was obtained. COMPARISON: 01/02/2019. FINDINGS: Interval placement of endotracheal tube, which terminates in the mid thoracic trachea 3.7 cm from the joi. Interval placement of a nasogastric tube which descends below the diaphragm sidehole within the gastric lumen. Atherosclerosis of the aortic arch. Cardiac silhouette moderately enlarged. Mild pulmonary vascular p rominence. Persistent left basilar opacity likely in part related to cardiac silhouette enlargement. No large pleural effusion though small effusions may be present. No pneumothorax. Osteopenia may be p resent. Upper abdomen normal. IMPRESSION: 1. Appropriately positioned tubes. 2. Cardiomegaly with mild volume overload. 3. Persistent left basilar atelectasis. Electronically signed by: Alex Ross M.D. 01/02/2019 4:07 PM
[2019-01-02] MEDS ORDERED: LORazepam 1 MG/2 ML VIAL IV STA (16:28)
[2019-01-02] MEDS ORDERED: LORazepam 2 MG/4 ML VIAL ONE (16:31)
[2019-01-02] MEDS ORDERED: MIDAZOLAM HCL 1 MG/ML 2ML VIAL ONE (16:54)
[2019-01-02] MEDS ORDERED: fentaNYL citrate 100 MCG/2 ML VIAL ONE (16:55)
[2019-01-02] MEDS ORDERED: NOREPINEPHRINE BITARTRATE 1 MG/ML 4 ML VIAL IV ONE ×2 (17:12→17:15)
--- NOTE | 2019-01-02 18:20 | XRay Report ---
XR chest 1V portable CLINICAL HISTORY: 73 years-old Male presenting with CENTRAL LINE PLACEMENT. TECHNIQUE: Portable semiupright AP view of the chest was obtained. COMPARISON: 01/02/2019 at 3:58 PM. FINDINGS: Endotracheal tube terminates nearly 5 cm from the joi. Interval placement of a right internal jugu lar central venous catheter which terminates in the upper SVC. Nasogastric tube descends below the di aphragm. Atherosclerosis of the aortic arch. Cardiac silhouette enlarged. Aeration is unchanged from prior. Mi nimal left basilar opacity. Pleural effusions may be present. No pneumothorax. Degenerative changes o f the thoracic spine. IMPRESSION: 1. Appropriately positioned lines and tubes. No pneumothorax. 2. Unchanged aeration with suspected left basilar atelectasis. 3. Mild cardiomegaly. Electronically signed by: Alex Ross M.D. 01/02/2019 6:18 PM
--- NOTE | 2019-01-02 18:49 | Hospitalist Progress Note ---
Date of Service January 02, 2019 Assessment & Plan (1) Acute respiratory failure with hypoxia and hypercapnia: Etiology? Chest x-ray without discrete pneumonia. No edema. Perhaps metabolic factors leading to respiratory failure (intra-abdominal process, etc). Now intubated and mechanically ventilated. Defer vent management to critical care. Present on Admission?: Yes (2) LLQ abdominal pain: colitis? diverticulitis? other? CT abd/pelvis - enteric contrast only (Cr too high for IV contrast). (3) JAVIER (acute kidney injury): Suspect sepsis related as he has been hypotensive and now has elevated lactate. Supportive care. Pressor support. Serial BMPs. (4) Elevated troponin: Doubt ACS. Likely myocardial demand ischemia. (5) Elevated international normalized ratio (INR): I had Mr Rizo in September 2018 and during that hospital stay also had elevated INR. He has no formal dx of liver disease. It was assumed at that time he had passive congestion of the liver leading to liver dysfunction from his CHF. He had no response to vitamin K supplementation. Serial INRs. Poor prognostic indicator. (6) Digoxin toxicity: Resolving. Holding digoxin. (7) Encephalopathy acute: 2nd to hypercarbia, ?sepsis, etc. supportive care. CT head neg at admission. (8) Hypotension: sepsis? cardiogenic? now on levophed. consider inotropic agent given his severe LV dysfunction. consider checking cortisol random. (9) Pulmonary hypertension: known diagnosis, suspected to be playing role in chronic hypoxia at baseline. (10) Hypothyroidism: TSH for the last year has been high. noncompliance? it is 7 now. would simply cont levothyroxine for now. (11) Aortic stenosis: severe s/p valvuloplasty recently but unsuccessful still with considerable stenosis on echo right now (12) CAD in [place] artery: no evidence of ACS at this time (13) Chronic combined systolic and diastolic congestive heart failure: consider inotropic agent if shock is felt to be partially cardiogenic in origin (14) Atrial fibrillation: rates reasonable at this time auto-anticoagulated (15) DVT prophylaxis: INR near 2 serial INRs very poor prognosis need to address code status with family Subjective pt had been lethargic all day today on BIPAP. ultimately intubated this afternoon. following intubation & line placement I performed my exam. during the exam he was grimacing when I palpated the LLQ. he consistently grimaced with palpating this region. no right-sided pain. he looked overall uncomfortable. Review of Systems Review of Systems: Unobtainable due to endotracheal tube Physical Exam Constitutional: + acute distress, + thin and + frail appearing ENMT: ETT in place; enteric tube in place Respiratory: + labored breathing (tachypnea) Auscultation: lungs clear to auscultation bilaterally Cardiovascular: Rate/Rhythm: regular rate and + irregularly irregular Heart Sounds: normal S1, normal S2 and + murmur (2/6 systolic murmur RUSB) Vessels: posterior tibial pulses present and dorsalis pedis pulses present; no JVD Gastrointestinal (Abdomen): Inspection/Auscultation: abdomen not distended Percussion/Palpation: + abdomen tender (LLQ, slightly suprapubic region as well) and abdomen soft; no hepatosplenomegaly Psychiatric: Orientation: + not alert and + not oriented x 3 Results & Data Vital Signs (Past 12 Hours) Vital Signs Temp Temp Pulse Pulse Resp BP BP 01/02/19 18:00 63 27 H 97/60 L 01/02/19 17:18 63 28 H 01/02/19 17:15 60 01/02/19 17:00 37 C 65 27 H 01/02/19 16:45 58 L 27 H 01/02/19 16:40 36.4 C L 54 L 28 H 01/02/19 16:17 51 L 28 H 01/02/19 16:00 56 L 01/02/19 14:43 58 L 21 01/02/19 14:35 35.3 C L 01/02/19 14:17 35.3 C L 57 L 22 87/43 L 01/02/19 14:16 35.3 C L 58 L 23 80/41 L 01/02/19 14:00 35.3 C L 57 L 25 H 88/44 L 01/02/19 13:01 59 L 21 101/54 L 01/02/19 13:00 58 L 22 01/02/19 12:21 59 L 98/46 L 01/02/19 12:19 59 L 23 98/48 L 01/02/19 12:01 60 21 01/02/19 12:00 35.1 C L 59 L 59 L 22 101/48 L 01/02/19 11:37 59 L 22 01/02/19 11:01 58 L 20 01/02/19 11:00 58 L 19 104/48 L 01/02/19 10:01 55 L 18 103/47 L 01/02/19 10:00 34.7 C L 57 L 17 01/02/19 09:42 62 112/52 L 01/02/19 09:01 61 20 01/02/19 09:00 60 17 112/52 L 01/02/19 08:11 58 L 20 01/02/19 08:01 63 17 01/02/19 08:00 35.2 C L 61 61 18 111/56 L 01/02/19 07:01 61 15 01/02/19 07:00 61 16 113/53 L BP Pulse Ox Pulse Ox 01/02/19 18:00 98/47 L 100 01/02/19 17:18 99 01/02/19 17:15 62/31 L 01/02/19 17:00 56/32 L 100 01/02/19 16:45 196/159 H 40 L 01/02/19 16:40 143/87 H 98 01/02/19 16:17 98 01/02/19 16:00 01/02/19 14:43 98 01/02/19 14:35 01/02/19 14:17 98 01/02/19 14:16 98 01/02/19 14:00 98 01/02/19 13:01 98 01/02/19 13:00 97 01/02/19 12:21 01/02/19 12:19 91 01/02/19 12:01 94 01/02/19 12:00 98/48 L 95 01/02/19 11:37 92 01/02/19 11:01 92 01/02/19 11:00 93 01/02/19 10:01 92 01/02/19 10:00 94 01/02/19 09:42 01/02/19 09:01 92 01/02/19 09:00 92 01/02/19 08:11 94 01/02/19 08:01 95 01/02/19 08:00 113/50 L 95 95 01/02/19 07:01 96 01/02/19 07:00 96 Laboratory Results Cr 1.8 this afternoon Hb 11.3 normal wbc count (1) Digoxin toxicity Encounter type: subsequent encounter Injury intent: undetermined intent Qualified Code(s): T46.0X4D - Poisoning by cardiac-stimulant glycosides and drugs of similar action, undetermined, subsequent encounter (2) Hypotension Hypotension type: other hypotension type Qualified Code(s): I95.89 - Other hypotension (3) Hypothyroidism Hypothyroidism type: acquired Qualified Code(s): E03.9 - Hypothyroidism, unspecified (4) Aortic stenosis Cardiac valve disease etiology: etiology unspecified Qualified Code(s): I35.0 - Nonrheumatic aortic (valve) stenosis (5) Atrial fibrillation Atrial fibrillation type: paroxysmal Qualified Code(s): I48.0 - Paroxysmal atrial fibrillation
[2019-01-02] MEDS: MIDAZOLAM HCL 1 MG/ML 2ML VIAL IV PRN (20:16)
[2019-01-02] MEDS ORDERED: PHYTONADIONE 2.5 MG in SODIUM CHLORIDE 0.9% 50 ML IV ONE (21:11)
[2019-01-02] MEDS ORDERED: MIDAZOLAM HCL 5 MG/ML 1 ML VIAL IV STA (21:12)
[2019-01-02] MEDS ORDERED: VECURONIUM BROMIDE 10 MG VIAL IV STA (21:13)
[2019-01-02] MEDS ORDERED: METOPROLOL TARTRATE 1 MG/ML VIAL IV STA (21:16)
[2019-01-02] MEDS ORDERED: METOPROLOL TARTRATE 1 MG/ML VIAL IV ONE (21:17)
--- NOTE | 2019-01-02 21:58 | CT Scan Report ---
CT abd pelvis oral con only CLINICAL HISTORY: 73 years-old Male presenting with LLQ abd pain, ?diverticulitis? ischemia?. TECHNIQUE: Multidetector CT of the abdomen and pelvis was performed after the administration of oral contrast only. IV contrast: None. One or more dose lowering techniques were used consistent with the principles of ALARA (as low as reasonably achievable), including automatic exposure control, mA or kV adjustment to individual patient size, and/or use of iterative reconstruction. COMPARISON: 08/06/2017. CT DOSE (mGy.cm): The estimated cumulative dose is 507.78 mGy.cm. FINDINGS: Image quality is significantly negatively affected by positioning of the arms at the sides, which res ults in streak artifact and quantum mottle. Estimator Project Manager topogram: Unremarkable. Lung bases: Multichamber enlargement of the heart. Coronary artery, aortic valve, and mitral annular calcification. Small left pleural effusion with pleural thickening. Prior right pleural effusion is r esolved. Extensive peribronchovascular and dependent consolidation in the left lower lobe and to a le sser extent in the lingula. Mild volume loss of the left lower lobe. Centrilobular and paraseptal emp hysema in the left lung base. Added density of the lungs suggested. No significant interlobular septa l thickening. Liver: Normal morphology. Normal density. Biliary: No gross biliary ductal dilatation allowing for noncontrast technique. Gallbladder sludge kennedy ggested by layering hyperdensity within the lumen. Pancreas: Normal noncontrast appearance. Spleen: Normal noncontrast appearance. Splenules suggested. Adrenal glands: Normal noncontrast appearance. Kidneys and ureters: Previously noted exophytic cyst arising from the left upper pole is now mildly h yperdense, indeterminate though likely indicating interval hemorrhage or proteinaceous debris (series 3 image 159). No nephrolithiasis. Renovascular calcification noted. No hydronephrosis. Normal ureter s. Bladder: Decompressed with a Arredondo catheter. Pelvic organs: Normal noncontrast appearance. Bowel: Temperature probe located in the rectum. Diffuse perirectal fat infiltration as well as presac ral fluid. There is mild colonic wall thickening suggested primarily affecting the transverse and lef t colon. The appendix is not well visualized. No bowel obstruction. A nasogastric tube terminates in the gastric body. Gastric wall thickening suggested. Peritoneal cavity: No free fluid or intraperitoneal gas. Free fluid in the retroperitoneal/extrapleur al pelvis within the presacral region. Lymph nodes: No gross lymphadenopathy allowing for noncontrast technique. Vasculature: Atherosclerosis of the abdominal aorta, which is irregular and ectatic measuring up to 2 .9 cm in diameter. Abdominal wall: Body wall edema. Musculoskeletal: Degenerative changes of the spine. IMPRESSION: Image quality is significantly negatively affected by positioning of the arms at the sides, which res ults in streak artifact and quantum mottle. 1. Colonic and gastric wall thickening likely indicate the presence of a colitis and gastritis. This may be on an infectious basis. The distribution is not suggestive of an ischemic etiology. 2. Fluid within the presacral region as well as perirectal edema. This is nonspecific and can be see n in the setting of post radiation change or proctitis among other etiologies. 3. Chronic left pleural effusion with pleural thickening and chronic left basilar atelectasis. 4. Added density in the lungs may suggest a superimposed infiltrate or edema. This is noted diffusel y. 5. Gallbladder sludge. 6. Appropriately positioned nasogastric tube. 7. Additional chronic findings as above. Electronically signed by: Alex Ross M.D. 01/02/2019 9:56 PM
[2019-01-02] MEDS: NOREPINEPHRINE BIT INJ 8 MG in DEXTROSE 5% 500 ML IV SCH (22:35)
[2019-01-02] MEDS: fentaNYL citrate 100 MCG/2 ML VIAL IV PRN (22:38)
[2019-01-02] MEDS: FAMOTIDINE 20 MG in SYRINGE 3 ML IV SCH (22:39)
[2019-01-02] MEDS: metroNIDAZOLE 500 MG/100 ML BAG IV SCH (22:39)
[2019-01-03 00:31] LABS: Albumin Globulin Ratio 0.9 (0.9-2); Albumin Level 2.6 gm/dl (3.4-5.0); BUN Creatinine Ratio 22.1 (10-20); Bilirubin,Total 1.1 mg/dl (0.2-1); Creatinine Clr Calc Pharmacy 32.3 ml/min; Est GFR (African American) 44.7; Est GFR (Non-African American) 38.6; Globulin 2.9 gm/dl (2.5-4.0); Potassium 3.7 mmol/L (3.5-5.1); Total Protein 5.5 gm/dl (6.4-8.2)
[2019-01-03 01:04] LABS: Basophils # (auto) 0.01 K/uL (0-0.2); Basophils % (auto) 0.1 %; Eosinophils # (auto) 0.05 K/uL (0-0.5); Eosinophils % (auto) 0.4 %; Hematocrit (blood only) 35.7 % (42-52); Hemoglobin 10.7 g/dL (14.0-18.0); Immature Granulocytes # (auto) 0.03 K/uL (0.00-0.02); Immature Granulocytes % (auto) 0.2 %; Lymphocytes # (auto) 0.55 K/uL (1.2-3.4); Lymphocytes % (auto) 4.5 %; Mean Corpuscular Volume 97.3 fL (80-100); Mean Platelet Volume 9.7 fL (7.4-10.4); Monocytes # (auto) 1.05 K/uL (0.11-0.59); Monocytes % (auto) 8.6 %; Neutrophils # (auto) 10.45 K/uL (1.4-6.5); Neutrophils % (auto) 86.2 %; Nucleated RBC # (auto) 0.03 K/uL (0-0); Nucleated RBC % (auto) 0.2 %; Platelet Count 253 K/uL (130-400); RDW Coefficient of Variation 17.6 % (11.5-14.5); RDW Standard Deviation 62.4 fL (36.4-46.3); Red Blood Count 3.67 M/uL (4.7-6.1); White Blood Count 12.14 K/uL (4.8-10.8)
[2019-01-03] MEDS: MIDAZOLAM HCL 1 MG/ML 2ML VIAL IV PRN ×6 (03:28→21:07)
[2019-01-03] MEDS: CEFEPIME 2,000 MG in SYRINGE 7.5 ML IV SCH ×2 (03:28→17:34)
[2019-01-03 04:38] LABS: Basophils # (auto) 0.01 K/uL (0-0.2); Basophils % (auto) 0.1 %; Eosinophils # (auto) 0.05 K/uL (0-0.5); Eosinophils % (auto) 0.4 %; Hematocrit (blood only) 36.8 % (42-52); Hemoglobin 11.2 g/dL (14.0-18.0); Immature Granulocytes # (auto) 0.03 K/uL (0.00-0.02); Immature Granulocytes % (auto) 0.2 %; Lymphocytes # (auto) 0.56 K/uL (1.2-3.4); Mean Corpuscular Hgb Conc 30.4 g/dL (32-36); Mean Corpuscular Volume 95.8 fL (80-100); Mean Platelet Volume 10.1 fL (7.4-10.4); Monocytes # (auto) 0.95 K/uL (0.11-0.59); Monocytes % (auto) 6.7 %; Neutrophils # (auto) 12.54 K/uL (1.4-6.5); Neutrophils % (auto) 88.6 %; Platelet Count 224 K/uL (130-400); RDW Coefficient of Variation 17.8 % (11.5-14.5); RDW Standard Deviation 61.7 fL (36.4-46.3); Red Blood Count 3.84 M/uL (4.7-6.1); White Blood Count 14.14 K/uL (4.8-10.8)
[2019-01-03 04:48] LABS: INR 2.7 (0.9-1.1); Prothrombin Time 25.8 Seconds (9.0-12.0)
[2019-01-03 05:07] LABS: BUN Creatinine Ratio 22.2 (10-20); Calcium 8.3 mg/dl (8.5-10.1); Creatinine Clr Calc Pharmacy 32.5 ml/min; Est GFR (Non-African American) 38.9; Magnesium 2.4 mg/dl (1.8-2.4)
[2019-01-03] MEDS: metroNIDAZOLE 500 MG/100 ML BAG IV SCH ×3 (06:15→23:52)
[2019-01-03] MEDS: LEVOTHYROXINE SODIUM 50 MCG TABLET PO SCH (07:19)
[2019-01-03] MEDS: NOREPINEPHRINE BIT INJ 8 MG in DEXTROSE 5% 500 ML IV SCH (08:09)
[2019-01-03] MEDS: FAMOTIDINE 20 MG in SYRINGE 3 ML IV SCH ×2 (08:09→23:53)
[2019-01-03 10:29] LABS: Hematocrit (blood only) 33.9 % (42-52); Hemoglobin 10.1 g/dL (14.0-18.0)
[2019-01-03] MEDS: fentaNYL citrate 100 MCG/2 ML VIAL IV PRN ×4 (10:38→22:22)
--- NOTE | 2019-01-03 11:42 | Critical Care Progress Note ---
Date of Service January 03, 2019 Assessment & Plan (1) Elevated troponin: (2) JAVIER (acute kidney injury): (3) Hypercapnia: (4) Elevated international normalized ratio (INR): (5) Digoxin toxicity: (6) Acute respiratory failure: Reason Critically Ill: 73-year-old male with acute hypercapnic respiratory failure and altered mental status PLAN: Neuro: Acute encephalopathy -Metabolic likely secondary to hypercapnic respiratory failure -Unclear what the patient's baseline mental status is. Resp: Acute hypercapnic respiratory failure: Improving -Required intubation yesterday CV: Acute on chronic systolic and diastolic congestive heart failure -Elevated troponins Abnormal EKG Severe cardiomyopathy Elevated digoxin level: Digoxin toxicity Fluids/Renal: Elevated bicarb -Metabolic compensation for acute on chronic respiratory acidosis Acute kidney injury -Gentle hydration with Normosol at 80 mL's per hour Lactic acidosis resolved ID: Febrile requiring cooling blanket -Leukocytosis of unclear etiology -Blood cultures have remained negative -Broad-spectrum antibiotics for additional 24 hours. -Atelectasis seen on CT this could be possible source GI/Nutrition: N.p.o. Elevated alkaline phosphatase -Elevated bilirubin mild transaminitis Gastrointestinal bleeding -Has required blood transfusions in past and no obvious source has been identified Heme: Anemia -At baseline DVT prophylaxis: Therapeutic INR: Unclear if this is related to systemic anticoagulation or nutritional deficiency -Possible transaminitis secondary to cardiac hepatic congestion Endocrine: ICU hyperglycemia protocol Vascular access: Peripheral IVs Code Status: Full code Patient has had several admissions to the hospital, may benefit from palliative care consultation during the week to further elucidate goals of care I attempted to contact the patient's daughter via contact information listed in the medical record and answering machine responded I have personally spent 40 minutes of critical care time in the direct management of this patient. This is a life/limb threatening event. This includes time spent evaluating patient, direct bedside care, chart review, placing orders, interpretation of diagnostic studies, discussion with consultants, patient, and/or family members regarding treatment decisions, as well as other required patient management activities. This time is exclusive of all separately billable procedures, and teaching time and separate from and in addition to any other critical care service time. Patient's sister arrived at bedside today, she reports that his functional status appears to keep declining however she is not seeing him that frequently. She did confirm he has a single daughter who is most likely would be his medical decision-maker and her number is [phone] I have attempted to contact her at that location twice and left a message for her to call back. (7) Altered mental status: (8) Non-ST elevation myocardial infarction (NSTEMI): (9) Encephalopathy acute: (10) Hypotension: (11) Acute blood loss anemia: Subjective No overnight events Review of Systems Review of Systems: Unobtainable due to endotracheal tube Physical Exam Physical Exam: General: RASS -2 Skin: Warm, dry, Head: Atraumatic Ears, nose, mouth and throat: airway obscured by endotracheal tube Cardiovascular: Normal peripheral perfusion Respiratory: no respiratory distress Gastrointestinal: Non distended Musculoskeletal: No deformity Results & Data Vital Signs (Past 12 Hours) Vital Signs Temp Temp Pulse Pulse Resp BP BP 01/03/19 11:08 78 28 H 01/03/19 11:00 84 01/03/19 08:00 36.9 C 36.9 C 60 60 26 H 114/48 L 01/03/19 07:52 60 28 H 01/03/19 07:02 59 L 132/57 L 01/03/19 07:00 59 L 01/03/19 06:02 67 73/52 L 01/03/19 06:00 63 01/03/19 05:44 65 28 H 01/03/19 05:00 61 01/03/19 04:02 60 112/41 L 01/03/19 04:00 36.4 C L 60 01/03/19 03:00 69 01/03/19 02:26 93 H 28 H 01/03/19 02:17 90 150/59 H 01/03/19 02:11 81 117/83 01/03/19 02:07 84 122/64 01/03/19 02:01 73 110/78 01/03/19 02:00 75 01/03/19 01:56 86 119/69 01/03/19 01:51 79 117/56 L 01/03/19 01:46 86 110/76 01/03/19 01:41 73 139/56 L 01/03/19 01:36 77 115/66 01/03/19 01:31 97 H 125/59 L 01/03/19 01:26 106 H 123/59 L 01/03/19 01:21 80 132/61 01/03/19 01:15 81 70/47 L 01/03/19 01:11 112 H 115/50 L 01/03/19 01:06 74 125/53 L 01/03/19 01:05 80 125/53 L 01/03/19 01:01 81 01/03/19 01:00 83 121/58 L 01/03/19 00:55 79 109/50 L 01/03/19 00:51 83 113/51 L 01/03/19 00:45 75 121/67 01/03/19 00:40 104 H 101/71 01/03/19 00:35 80 106/53 L 01/03/19 00:30 74 97/60 L 01/03/19 00:25 81 113/73 01/03/19 00:20 79 107/55 L 01/03/19 00:16 76 121/51 L 01/03/19 00:11 82 90/55 L 01/03/19 00:06 80 140/52 L 01/03/19 00:01 96 H 01/03/19 00:00 97 H 124/62 01/02/19 23:57 82 92/51 L 01/02/19 23:50 102 H 96/63 L 01/02/19 23:47 28 H 01/02/19 23:46 108 H 111/57 L 01/02/19 23:41 102 H 112/58 L 01/02/19 23:40 73 28 H 01/02/19 23:36 100 H 90/52 L BP Pulse Ox Pulse Ox Pulse Ox 01/03/19 11:08 99 01/03/19 11:00 01/03/19 08:00 115/55 L 98 98 98 01/03/19 07:52 100 01/03/19 07:02 100 01/03/19 07:00 01/03/19 06:02 99 01/03/19 06:00 100 01/03/19 05:44 100 01/03/19 05:00 100 01/03/19 04:02 01/03/19 04:00 71 L 01/03/19 03:00 01/03/19 02:26 100 01/03/19 02:17 100 01/03/19 02:11 01/03/19 02:07 95 01/03/19 02:01 01/03/19 02:00 80 L 01/03/19 01:56 91 01/03/19 01:51 80 L 01/03/19 01:46 90 01/03/19 01:41 98 01/03/19 01:36 97 01/03/19 01:31 100 01/03/19 01:26 86 L 01/03/19 01:21 01/03/19 01:15 100 01/03/19 01:11 100 01/03/19 01:06 100 01/03/19 01:05 99 01/03/19 01:01 100 01/03/19 01:00 100 01/03/19 00:55 97 01/03/19 00:51 94 01/03/19 00:45 98 01/03/19 00:40 96 01/03/19 00:35 99 01/03/19 00:30 95 01/03/19 00:25 99 01/03/19 00:20 88 L 01/03/19 00:16 98 01/03/19 00:11 99 01/03/19 00:06 100 01/03/19 00:01 100 01/03/19 00:00 95 01/02/19 23:57 100 01/02/19 23:50 98 01/02/19 23:47 01/02/19 23:46 100 01/02/19 23:41 100 01/02/19 23:40 100 01/02/19 23:36 97 Laboratory Results 01/03/19 01/03/19 01/03/19 Range/Units 10:13 08:30 04:21 WBC (4.8-10.8) K/uL RBC (4.7-6.1) M/uL Hgb 10.1 L (14.0-18.0) g/dL Hct 33.9 L (42-52) % MCV (80-100) fL MCH (25-34) pg MCHC (32-36) g/dL RDW Std Deviation (36.4-46.3) fL RDW Coeff of Jessica (11.5-14.5) % Plt Count (130-400) K/uL MPV (7.4-10.4) fL Immature Gran % (Auto) % Neut % (Auto) % Lymph % (Auto) % [place] % (Auto) % Eos % (Auto) % Baso % (Auto) % Immature Gran # (Auto) (0.00-0.02) K/uL Neut # (Auto) (1.4-6.5) K/uL Lymph # (Auto) (1.2-3.4) K/uL [place] # (Auto) (0.11-0.59) K/uL Eos # (Auto) (0-0.5) K/uL Baso # (Auto) (0-0.2) K/uL Absolute Nucleated RBC (0-0) K/uL Nucleated RBC % (auto) % Ovalocytes Schistocytes PT 25.8 H (9.0-12.0) Seconds INR 2.7 H (0.9-1.1) Sodium (136-145) mmol/L Potassium (3.5-5.1) mmol/L Chloride (98-107) mmol/L Carbon Dioxide (21-32) mmol/L Anion Gap (3-11) BUN (7-18) mg/dl Creatinine (0.6-1.4) mg/dl Est Cr Clr Drug Dosing ml/min Est GFR ( Amer) Est GFR (Non-Af Amer) BUN/Creatinine Ratio (10-20) Glucose (70-99) mg/dl POC Glucose (70-99) Lactate (0.4-2.0) mmol/L Calcium (8.5-10.1) mg/dl Magnesium (1.8-2.4) mg/dl Total Bilirubin (0.2-1) mg/dl AST (15-37) U/L ALT (12-78) U/L Alkaline Phosphatase (45-117) U/L Troponin I (0-0.045) ng/ml Total Protein (6.4-8.2) gm/dl Albumin (3.4-5.0) gm/dl Globulin (2.5-4.0) gm/dl Albumin/Globulin Ratio (0.9-2) Procalcitonin (0-0.5) ng/ml Stl C. diff Tox B Gene Negative Cdiff Gene (Neg) 01/03/19 01/03/19 01/03/19 Range/Units 04:21 04:21 04:04 WBC 14.14 H (4.8-10.8) K/uL RBC 3.84 L (4.7-6.1) M/uL Hgb 11.2 L (14.0-18.0) g/dL Hct 36.8 L (42-52) % MCV 95.8 (80-100) fL MCH 29.2 (25-34) pg MCHC 30.4 L (32-36) g/dL RDW Std Deviation 61.7 H (36.4-46.3) fL RDW Coeff of Jessica 17.8 H (11.5-14.5) % Plt Count 224 (130-400) K/uL MPV 10.1 (7.4-10.4) fL Immature Gran % (Auto) 0.2 % Neut % (Auto) 88.6 % Lymph % (Auto) 4.0 % [place] % (Auto) 6.7 % Eos % (Auto) 0.4 % Baso % (Auto) 0.1 % Immature Gran # (Auto) 0.03 H (0.00-0.02) K/uL Neut # (Auto) 12.54 H (1.4-6.5) K/uL Lymph # (Auto) 0.56 L (1.2-3.4) K/uL [place] # (Auto) 0.95 H (0.11-0.59) K/uL Eos # (Auto) 0.05 (0-0.5) K/uL Baso # (Auto) 0.01 (0-0.2) K/uL Absolute Nucleated RBC (0-0) K/uL Nucleated RBC % (auto) % Ovalocytes Schistocytes PT (9.0-12.0) Seconds INR (0.9-1.1) Sodium 144 (136-145) mmol/L Potassium 4.0 (3.5-5.1) mmol/L Chloride 101 (98-107) mmol/L Carbon Dioxide 36 H (21-32) mmol/L Anion Gap 7.0 (3-11) BUN 38 H (7-18) mg/dl Creatinine 1.69 H (0.6-1.4) mg/dl Est Cr Clr Drug Dosing 32.5 ml/min Est GFR ( Amer) 45.0 Est GFR (Non-Af Amer) 38.9 BUN/Creatinine Ratio 22.2 H (10-20) Glucose 111 H (70-99) mg/dl POC Glucose 91 (70-99) Lactate (0.4-2.0) mmol/L Calcium 8.3 L (8.5-10.1) mg/dl Magnesium 2.4 (1.8-2.4) mg/dl Total Bilirubin (0.2-1) mg/dl AST (15-37) U/L ALT (12-78) U/L Alkaline Phosphatase (45-117) U/L Troponin I (0-0.045) ng/ml Total Protein (6.4-8.2) gm/dl Albumin (3.4-5.0) gm/dl Globulin (2.5-4.0) gm/dl Albumin/Globulin Ratio (0.9-2) Procalcitonin (0-0.5) ng/ml Stl C. diff Tox B Gene (Neg) 01/03/19 01/03/19 01/03/19 Range/Units 00:02 00:02 00:02 WBC 12.14 H (4.8-10.8) K/uL RBC 3.67 L (4.7-6.1) M/uL Hgb 10.7 L (14.0-18.0) g/dL Hct 35.7 L (42-52) % MCV 97.3 D (80-100) fL MCH 29.2 (25-34) pg MCHC 30.0 L (32-36) g/dL RDW Std Deviation 62.4 H (36.4-46.3) fL RDW Coeff of Jessica 17.6 H (11.5-14.5) % Plt Count 253 (130-400) K/uL MPV 9.7 (7.4-10.4) fL Immature Gran % (Auto) 0.2 % Neut % (Auto) 86.2 % Lymph % (Auto) 4.5 % [place] % (Auto) 8.6 % Eos % (Auto) 0.4 % Baso % (Auto) 0.1 % Immature Gran # (Auto) 0.03 H (0.00-0.02) K/uL Neut # (Auto) 10.45 H (1.4-6.5) K/uL Lymph # (Auto) 0.55 L (1.2-3.4) K/uL [place] # (Auto) 1.05 H (0.11-0.59) K/uL Eos # (Auto) 0.05 (0-0.5) K/uL Baso # (Auto) 0.01 (0-0.2) K/uL Absolute Nucleated RBC 0.03 H (0-0) K/uL Nucleated RBC % (auto) 0.2 % Ovalocytes Schistocytes PT (9.0-12.0) Seconds INR (0.9-1.1) Sodium 146 H (136-145) mmol/L Potassium 3.7 D (3.5-5.1) mmol/L Chloride 101 (98-107) mmol/L Carbon Dioxide 35 H (21-32) mmol/L Anion Gap 10.0 (3-11) BUN 38 H (7-18) mg/dl Creatinine 1.70 H (0.6-1.4) mg/dl Est Cr Clr Drug Dosing 32.3 ml/min Est GFR ( Amer) 44.7 Est GFR (Non-Af Amer) 38.6 BUN/Creatinine Ratio 22.1 H (10-20) Glucose 85 (70-99) mg/dl POC Glucose (70-99) Lactate 1.7 (0.4-2.0) mmol/L Calcium 8.0 L (8.5-10.1) mg/dl Magnesium (1.8-2.4) mg/dl Total Bilirubin 1.1 H D (0.2-1) mg/dl AST 62 H (15-37) U/L ALT 31 (12-78) U/L Alkaline Phosphatase 162 H (45-117) U/L Troponin I (0-0.045) ng/ml Total Protein 5.5 L (6.4-8.2) gm/dl Albumin 2.6 L (3.4-5.0) gm/dl Globulin 2.9 (2.5-4.0) gm/dl Albumin/Globulin Ratio 0.9 (0.9-2) Procalcitonin (0-0.5) ng/ml Stl C. diff Tox B Gene (Neg) 01/02/19 01/02/19 01/02/19 Range/Units 23:48 20:39 19:42 WBC (4.8-10.8) K/uL RBC (4.7-6.1) M/uL Hgb (14.0-18.0) g/dL Hct (42-52) % MCV (80-100) fL MCH (25-34) pg MCHC (32-36) g/dL RDW Std Deviation (36.4-46.3) fL RDW Coeff of Jessica (11.5-14.5) % Plt Count (130-400) K/uL MPV (7.4-10.4) fL Immature Gran % (Auto) % Neut % (Auto) % Lymph % (Auto) % [place] % (Auto) % Eos % (Auto) % Baso % (Auto) % Immature Gran # (Auto) (0.00-0.02) K/uL Neut # (Auto) (1.4-6.5) K/uL Lymph # (Auto) (1.2-3.4) K/uL [place] # (Auto) (0.11-0.59) K/uL Eos # (Auto) (0-0.5) K/uL Baso # (Auto) (0-0.2) K/uL Absolute Nucleated RBC (0-0) K/uL Nucleated RBC % (auto) % Ovalocytes Schistocytes PT (9.0-12.0) Seconds INR (0.9-1.1) Sodium (136-145) mmol/L Potassium (3.5-5.1) mmol/L Chloride (98-107) mmol/L Carbon Dioxide (21-32) mmol/L Anion Gap (3-11) BUN (7-18) mg/dl Creatinine (0.6-1.4) mg/dl Est Cr Clr Drug Dosing ml/min Est GFR ( Amer) Est GFR (Non-Af Amer) BUN/Creatinine Ratio (10-20) Glucose (70-99) mg/dl POC Glucose 76 (70-99) Lactate 2.3 H* (0.4-2.0) mmol/L Calcium (8.5-10.1) mg/dl Magnesium (1.8-2.4) mg/dl Total Bilirubin (0.2-1) mg/dl AST (15-37) U/L ALT (12-78) U/L Alkaline Phosphatase (45-117) U/L Troponin I (0-0.045) ng/ml Total Protein (6.4-8.2) gm/dl Albumin (3.4-5.0) gm/dl Globulin (2.5-4.0) gm/dl Albumin/Globulin Ratio (0.9-2) Procalcitonin (0-0.5) ng/ml Stl C. diff Tox B Gene (Neg) 01/02/19 01/02/19 01/02/19 Range/Units 17:13 16:58 14:54 WBC (4.8-10.8) K/uL RBC (4.7-6.1) M/uL Hgb (14.0-18.0) g/dL Hct (42-52) % MCV (80-100) fL MCH (25-34) pg MCHC (32-36) g/dL RDW Std Deviation (36.4-46.3) fL RDW Coeff of Jessica (11.5-14.5) % Plt Count (130-400) K/uL MPV (7.4-10.4) fL Immature Gran % (Auto) % Neut % (Auto) % Lymph % (Auto) % [place] % (Auto) % Eos % (Auto) % Baso % (Auto) % Immature Gran # (Auto) (0.00-0.02) K/uL Neut # (Auto) (1.4-6.5) K/uL Lymph # (Auto) (1.2-3.4) K/uL [place] # (Auto) (0.11-0.59) K/uL Eos # (Auto) (0-0.5) K/uL Baso # (Auto) (0-0.2) K/uL Absolute Nucleated RBC (0-0) K/uL Nucleated RBC % (auto) % Ovalocytes Schistocytes PT (9.0-12.0) Seconds INR (0.9-1.1) Sodium (136-145) mmol/L Potassium (3.5-5.1) mmol/L Chloride (98-107) mmol/L Carbon Dioxide (21-32) mmol/L Anion Gap (3-11) BUN (7-18) mg/dl Creatinine (0.6-1.4) mg/dl Est Cr Clr Drug Dosing ml/min Est GFR ( Amer) Est GFR (Non-Af Amer) BUN/Creatinine Ratio (10-20) Glucose (70-99) mg/dl POC Glucose 103 H (70-99) Lactate 1.2 (0.4-2.0) mmol/L Calcium (8.5-10.1) mg/dl Magnesium (1.8-2.4) mg/dl Total Bilirubin (0.2-1) mg/dl AST (15-37) U/L ALT (12-78) U/L Alkaline Phosphatase (45-117) U/L Troponin I 0.497 H* (0-0.045) ng/ml Total Protein (6.4-8.2) gm/dl Albumin (3.4-5.0) gm/dl Globulin (2.5-4.0) gm/dl Albumin/Globulin Ratio (0.9-2) Procalcitonin (0-0.5) ng/ml Stl C. diff Tox B Gene (Neg) 01/02/19 01/02/19 01/02/19 Range/Units 14:46 14:46 14:46 WBC 10.56 (4.8-10.8) K/uL RBC 3.89 L (4.7-6.1) M/uL Hgb 11.3 L (14.0-18.0) g/dL Hct 40.5 L (42-52) % MCV 104.1 H (80-100) fL MCH 29.0 (25-34) pg MCHC 27.9 L (32-36) g/dL RDW Std Deviation 67.9 H (36.4-46.3) fL RDW Coeff of Jessica 18.0 H (11.5-14.5) % Plt Count 298 (130-400) K/uL MPV 10.3 (7.4-10.4) fL Immature Gran % (Auto) 0.9 % Neut % (Auto) 90.4 % Lymph % (Auto) 2.5 % [place] % (Auto) 6.1 % Eos % (Auto) 0.0 % Baso % (Auto) 0.1 % Immature Gran # (Auto) 0.09 H (0.00-0.02) K/uL Neut # (Auto) 9.56 H (1.4-6.5) K/uL Lymph # (Auto) 0.26 L (1.2-3.4) K/uL [place] # (Auto) 0.64 H (0.11-0.59) K/uL Eos # (Auto) 0.00 (0-0.5) K/uL Baso # (Auto) 0.01 (0-0.2) K/uL Absolute Nucleated RBC (0-0) K/uL Nucleated RBC % (auto) % Ovalocytes 1+ Schistocytes 1+ PT (9.0-12.0) Seconds INR (0.9-1.1) Sodium 144 (136-145) mmol/L Potassium 4.9 (3.5-5.1) mmol/L Chloride 100 (98-107) mmol/L Carbon Dioxide 44 H* (21-32) mmol/L Anion Gap 0 L (3-11) BUN 33 H (7-18) mg/dl Creatinine 1.84 H D (0.6-1.4) mg/dl Est Cr Clr Drug Dosing 29.8 ml/min Est GFR ( Amer) 40.6 Est GFR (Non-Af Amer) 35.1 BUN/Creatinine Ratio 17.8 (10-20) Glucose 100 H (70-99) mg/dl POC Glucose (70-99) Lactate (0.4-2.0) mmol/L Calcium 8.9 (8.5-10.1) mg/dl Magnesium (1.8-2.4) mg/dl Total Bilirubin 0.7 (0.2-1) mg/dl AST 38 H (15-37) U/L ALT 36 (12-78) U/L Alkaline Phosphatase 198 H (45-117) U/L Troponin I (0-0.045) ng/ml Total Protein 6.6 (6.4-8.2) gm/dl Albumin 3.3 L (3.4-5.0) gm/dl Globulin 3.3 (2.5-4.0) gm/dl Albumin/Globulin Ratio 1.0 (0.9-2) Procalcitonin 0.21 (0-0.5) ng/ml Stl C. diff Tox B Gene (Neg) 01/02/19 Range/Units 11:43 WBC (4.8-10.8) K/uL RBC (4.7-6.1) M/uL Hgb (14.0-18.0) g/dL Hct (42-52) % MCV (80-100) fL MCH (25-34) pg MCHC (32-36) g/dL RDW Std Deviation (36.4-46.3) fL RDW Coeff of Jessica (11.5-14.5) % Plt Count (130-400) K/uL MPV (7.4-10.4) fL Immature Gran % (Auto) % Neut % (Auto) % Lymph % (Auto) % [place] % (Auto) % Eos % (Auto) % Baso % (Auto) % Immature Gran # (Auto) (0.00-0.02) K/uL Neut # (Auto) (1.4-6.5) K/uL Lymph # (Auto) (1.2-3.4) K/uL [place] # (Auto) (0.11-0.59) K/uL Eos # (Auto) (0-0.5) K/uL Baso # (Auto) (0-0.2) K/uL Absolute Nucleated RBC (0-0) K/uL Nucleated RBC % (auto) % Ovalocytes Schistocytes PT (9.0-12.0) Seconds INR (0.9-1.1) Sodium (136-145) mmol/L Potassium (3.5-5.1) mmol/L Chloride (98-107) mmol/L Carbon Dioxide (21-32) mmol/L Anion Gap (3-11) BUN (7-18) mg/dl Creatinine (0.6-1.4) mg/dl Est Cr Clr Drug Dosing ml/min Est GFR ( Amer) Est GFR (Non-Af Amer) BUN/Creatinine Ratio (10-20) Glucose (70-99) mg/dl POC Glucose 118 H (70-99) Lactate (0.4-2.0) mmol/L Calcium (8.5-10.1) mg/dl Magnesium (1.8-2.4) mg/dl Total Bilirubin (0.2-1) mg/dl AST (15-37) U/L ALT (12-78) U/L Alkaline Phosphatase (45-117) U/L Troponin I (0-0.045) ng/ml Total Protein (6.4-8.2) gm/dl Albumin (3.4-5.0) gm/dl Globulin (2.5-4.0) gm/dl Albumin/Globulin Ratio (0.9-2) Procalcitonin (0-0.5) ng/ml Stl C. diff Tox B Gene (Neg) Diagnostic Findings I reviewed the radiology report of the CT scan and abdomen Critical Care Time Critical Care Time: Yes Total Critical Care Time: 40 (1) Digoxin toxicity Encounter type: subsequent encounter Injury intent: undetermined intent Qualified Code(s): T46.0X4D - Poisoning by cardiac-stimulant glycosides and drugs of similar action, undetermined, subsequent encounter (2) Acute respiratory failure Respiratory failure complication: hypercapnia Qualified Code(s): J96.02 - Acute respiratory failure with hypercapnia (3) Altered mental status Altered mental status type: unspecified Qualified Code(s): R41.82 - Altered mental status, unspecified (4) Hypotension Hypotension type: other hypotension type Qualified Code(s): I95.89 - Other hypotension
--- NOTE | 2019-01-03 12:33 | XRay Report ---
XR chest 1V portable HISTORY: 73 years-old Male intubation acute respiratory failure COMPARISON: Chest radiograph 01/02/2019 TECHNIQUE: Portable AP view of the chest FINDINGS: Endotracheal tube overlies the midline, 3.6 cm superior to the joi. Enteric tube courses below the diaphragm outside the [id number]. Stable positioning of right internal jugular central venous cat heter. Cardiomegaly. Calcification of the thoracic aortic arch. No pneumothorax. Trace pleural effusi ons with subsegmental left greater than right bibasilar opacities. Degenerative changes of the should ers and spine. IMPRESSION: 1. Stable positioning of life-support lines and tubes. 2. Cardiomegaly without overt pulmonary edema. 3. Trace pleural effusions with bibasilar opacities suggestive of atelectasis. The above report was generated using voice recognition software. It may contain grammatical, syntax o r spelling errors. Electronically signed by: Nikos Alexandra M.D. 01/03/2019 12:32 PM
[2019-01-03] MEDS ORDERED: VANCOMYCIN HCL 1,000 MG in SODIUM CHLORIDE 0.9% 250 ML IV SCH (13:00)
[2019-01-03 16:40] LABS: Hemoglobin 10.3 g/dL (14.0-18.0)
--- NOTE | 2019-01-03 21:04 | Hospitalist Progress Note ---
Date of Service January 03, 2019 Assessment & Plan (1) Colitis: as confirmed on CT yesterday. having bloody BMs. c diff negative. suspect ischemia as cause in setting of shock, respiratory failure, and severe CHF. defer management to critical care team. consider general surgery evaluation but poor candidate for anything invasive. consider repeat lactate later today. currently on broad-spectrum IV abx including cefepime, flagyl and vanco. (2) Acute respiratory failure with hypoxia and hypercapnia: Etiology? Chest x-ray without discrete pneumonia. No pulmonary edema. Perhaps metabolic factors leading to respiratory failure (intra-abdominal proce ss, etc). Now intubated and mechanically ventilated. Defer vent management to critical care. (3) JAVIER (acute kidney injury): Cr modestly improved in comparison to yesterday. Cont IV abx, pressors, supportive care. (4) Elevated troponin: Doubt ACS. Likely myocardial demand ischemia. (5) Elevated international normalized ratio (INR): I had Mr Rizo in September 2018 and during that hospital stay also had elevated INR. He has no formal dx of liver disease. It was assumed at that time he had passive congestion of the liver leading to liver dysfunction from his CHF. He had no response to vitamin K supplementation. Vitamin K given again this admission w/o any effect. Serial INR today is WORSE. Again suspect liver dysfunction in setting of severe CHF, shock, etc. Repeat LFTs and INR am. Poor prognostic indicator. (6) Digoxin toxicity: Resolved. Holding digoxin. (7) Encephalopathy acute: 2nd to hypercarbia, sepsis, etc. supportive care. CT head neg at admission. (8) Hypotension: sepsis? cardiogenic? both? now on levophed. consider inotropic agent given his severe LV dysfunction. consider checking cortisol random. (9) Pulmonary hypertension: known diagnosis, suspected to be playing role in chronic hypoxia at baseline. (10) Hypothyroidism: TSH for the last year has been high. noncompliance? it is 7 now. would simply cont levothyroxine for now. (11) Aortic stenosis: severe s/p valvuloplasty recently but unsuccessful still with considerable stenosis on echo right now (12) CAD in [place] artery: no evidence of ACS at this time (13) Chronic combined systolic and diastolic congestive heart failure: consider inotropic agent if shock is felt to be partially cardiogenic in origin (14) Atrial fibrillation: rates controlled paced much of the time auto-anticoagulated -- see "elevated INR" (15) DVT prophylaxis: INR 2.7 in absence of anticoagulation very concerning for acute liver injury in setting of chronic liver dysfunction repeat INR am repeat LFTs am Dr Chong attempted to call pt's daughter today - no answer need to address goals of care and code status very poor prognosis Subjective patient intubated, vented during the exam he woke up briefly seemed uncomfortable events of last 12 hours noted still on pressors Review of Systems Review of Systems: Unobtainable due to endotracheal tube Physical Exam Constitutional: + thin and + frail appearing ENMT: ETT in place; enteric tube in place Respiratory: Auscultation: lungs clear to auscultation bilaterally Cardiovascular: Rate/Rhythm: regular rate and + irregularly irregular Heart Sounds: normal S1, normal S2 and + murmur (2/6 systolic murmur RUSB) Vessels: posterior tibial pulses present and dorsalis pedis pulses present; no JVD Gastrointestinal (Abdomen): Inspection/Auscultation: abdomen not distended Percussion/Palpation: + abdomen tender (LLQ), + guarding and abdomen soft; no hepatosplenomegaly during my exam the patient had a foul-smelling, bloody bowel movement Psychiatric: Orientation: + not alert and + not oriented x 3 Results & Data Vital Signs (Past 12 Hours) Vital Signs Temp Temp Pulse Pulse Resp BP BP 01/03/19 20:34 67 13 01/03/19 18:30 68 112/54 L 01/03/19 18:01 72 96/46 L 01/03/19 18:00 72 01/03/19 17:37 75 108/49 L 01/03/19 17:30 59 L 75/46 L 01/03/19 17:14 61 12 01/03/19 17:00 63 108/54 L 01/03/19 16:30 61 128/58 L 01/03/19 16:01 70 01/03/19 16:00 36.6 C 36.6 C 73 67 16 126/59 L 143/44 H 01/03/19 15:30 73 100/47 L 01/03/19 15:00 36.6 C 68 83/43 L 01/03/19 14:31 65 107/51 L 01/03/19 14:30 63 01/03/19 14:00 36.6 C 68 143/63 H 01/03/19 13:45 60 15 01/03/19 13:31 61 01/03/19 13:30 61 144/70 H 01/03/19 13:01 69 01/03/19 13:00 36.4 C L 62 143/64 H 01/03/19 12:31 75 01/03/19 12:30 75 131/61 01/03/19 12:01 69 105/49 L 01/03/19 12:00 36.5 C 84 67 22 95/31 L 01/03/19 11:57 79 108/53 L 01/03/19 11:31 76 80/43 L 01/03/19 11:30 73 01/03/19 11:08 78 28 H 01/03/19 11:01 89 01/03/19 11:00 83 113/44 L 01/03/19 10:32 73 108/54 L 01/03/19 10:30 81 01/03/19 10:14 69 79/37 L 01/03/19 10:01 74 77/45 L 01/03/19 10:00 70 01/03/19 09:31 70 116/53 L 01/03/19 09:30 69 BP Pulse Ox Pulse Ox 01/03/19 20:34 98 01/03/19 18:30 100 01/03/19 18:01 100 01/03/19 18:00 100 01/03/19 17:37 01/03/19 17:30 100 01/03/19 17:14 100 01/03/19 17:00 100 01/03/19 16:30 100 01/03/19 16:01 100 01/03/19 16:00 126/69 100 98 01/03/19 15:30 100 01/03/19 15:00 100 01/03/19 14:31 100 01/03/19 14:30 100 01/03/19 14:00 100 01/03/19 13:45 100 01/03/19 13:31 100 01/03/19 13:30 100 01/03/19 13:01 100 01/03/19 13:00 100 01/03/19 12:31 100 01/03/19 12:30 100 01/03/19 12:01 100 01/03/19 12:00 100 01/03/19 11:57 100 01/03/19 11:31 100 01/03/19 11:30 100 01/03/19 11:08 99 01/03/19 11:01 99 01/03/19 11:00 98 01/03/19 10:32 99 01/03/19 10:30 100 01/03/19 10:14 100 01/03/19 10:01 99 01/03/19 10:00 87 L 01/03/19 09:31 01/03/19 09:30 Laboratory Results Laboratory Results - last 24 hr 01/02/19 01/02/19 01/03/19 20:39 23:48 00:02 WBC 12.14 H RBC 3.67 L Hgb 10.7 L Hct 35.7 L MCV 97.3 D MCH 29.2 MCHC 30.0 L RDW Std Deviation 62.4 H RDW Coeff of Jessica 17.6 H Plt Count 253 MPV 9.7 Immature Gran % (Auto) 0.2 Neut % (Auto) 86.2 Lymph % (Auto) 4.5 Snyder % (Auto) 8.6 Eos % (Auto) 0.4 Baso % (Auto) 0.1 Immature Gran # (Auto) 0.03 H Neut # (Auto) 10.45 H Lymph # (Auto) 0.55 L Snyder # (Auto) 1.05 H Eos # (Auto) 0.05 Baso # (Auto) 0.01 Absolute Nucleated RBC 0.03 H Nucleated RBC % (auto) 0.2 PT INR Sodium Potassium Chloride Carbon Dioxide Anion Gap BUN Creatinine Est Cr Clr Drug Dosing Est GFR ( Amer) Est GFR (Non-Af Amer) BUN/Creatinine Ratio Glucose POC Glucose 76 Lactate 2.3 H* Calcium Magnesium Total Bilirubin AST ALT Alkaline Phosphatase Total Protein Albumin Globulin Albumin/Globulin Ratio Stl C. diff Tox B Gene 01/03/19 01/03/19 01/03/19 00:02 00:02 04:04 WBC RBC Hgb Hct MCV MCH MCHC RDW Std Deviation RDW Coeff of Jessica Plt Count MPV Immature Gran % (Auto) Neut % (Auto) Lymph % (Auto) Snyder % (Auto) Eos % (Auto) Baso % (Auto) Immature Gran # (Auto) Neut # (Auto) Lymph # (Auto) Snyder # (Auto) Eos # (Auto) Baso # (Auto) Absolute Nucleated RBC Nucleated RBC % (auto) PT INR Sodium 146 H Potassium 3.7 D Chloride 101 Carbon Dioxide 35 H Anion Gap 10.0 BUN 38 H Creatinine 1.70 H Est Cr Clr Drug Dosing 32.3 Est GFR ( Amer) 44.7 Est GFR (Non-Af Amer) 38.6 BUN/Creatinine Ratio 22.1 H Glucose 85 POC Glucose 91 Lactate 1.7 Calcium 8.0 L Magnesium Total Bilirubin 1.1 H D AST 62 H ALT 31 Alkaline Phosphatase 162 H Total Protein 5.5 L Albumin 2.6 L Globulin 2.9 Albumin/Globulin Ratio 0.9 Stl C. diff Tox B Gene 01/03/19 01/03/19 01/03/19 04:21 04:21 04:21 WBC 14.14 H RBC 3.84 L Hgb 11.2 L Hct 36.8 L MCV 95.8 MCH 29.2 MCHC 30.4 L RDW Std Deviation 61.7 H RDW Coeff of Jessica 17.8 H Plt Count 224 MPV 10.1 Immature Gran % (Auto) 0.2 Neut % (Auto) 88.6 Lymph % (Auto) 4.0 Snyder % (Auto) 6.7 Eos % (Auto) 0.4 Baso % (Auto) 0.1 Immature Gran # (Auto) 0.03 H Neut # (Auto) 12.54 H Lymph # (Auto) 0.56 L Snyder # (Auto) 0.95 H Eos # (Auto) 0.05 Baso # (Auto) 0.01 Absolute Nucleated RBC Nucleated RBC % (auto) PT 25.8 H INR 2.7 H Sodium 144 Potassium 4.0 Chloride 101 Carbon Dioxide 36 H Anion Gap 7.0 BUN 38 H Creatinine 1.69 H Est Cr Clr Drug Dosing 32.5 Est GFR ( Amer) 45.0 Est GFR (Non-Af Amer) 38.9 BUN/Creatinine Ratio 22.2 H Glucose 111 H POC Glucose Lactate Calcium 8.3 L Magnesium 2.4 Total Bilirubin AST ALT Alkaline Phosphatase Total Protein Albumin Globulin Albumin/Globulin Ratio Stl C. diff Tox B Gene 01/03/19 01/03/19 01/03/19 08:30 10:13 16:26 WBC RBC Hgb 10.1 L 10.3 L Hct 33.9 L 34.0 L MCV MCH MCHC RDW Std Deviation RDW Coeff of Jessica Plt Count MPV Immature Gran % (Auto) Neut % (Auto) Lymph % (Auto) Snyder % (Auto) Eos % (Auto) Baso % (Auto) Immature Gran # (Auto) Neut # (Auto) Lymph # (Auto) Snyder # (Auto) Eos # (Auto) Baso # (Auto) Absolute Nucleated RBC Nucleated RBC % (auto) PT INR Sodium Potassium Chloride Carbon Dioxide Anion Gap BUN Creatinine Est Cr Clr Drug Dosing Est GFR ( Amer) Est GFR (Non-Af Amer) BUN/Creatinine Ratio Glucose POC Glucose Lactate Calcium Magnesium Total Bilirubin AST ALT Alkaline Phosphatase Total Protein Albumin Globulin Albumin/Globulin Ratio Stl C. diff Tox B Gene Negative Cdiff Gene (1) Digoxin toxicity Encounter type: subsequent encounter Injury intent: undetermined intent Qualified Code(s): T46.0X4D - Poisoning by cardiac-stimulant glycosides and drugs of similar action, undetermined, subsequent encounter (2) Aortic stenosis Cardiac valve disease etiology: etiology unspecified Qualified Code(s): I35.0 - Nonrheumatic aortic (valve) stenosis (3) Atrial fibrillation Atrial fibrillation type: paroxysmal Qualified Code(s): I48.0 - Paroxysmal atrial fibrillation (4) Hypothyroidism Hypothyroidism type: acquired Qualified Code(s): E03.9 - Hypothyroidism, unspecified (5) Hypotension Hypotension type: other hypotension type Qualified Code(s): I95.89 - Other hypotension
[2019-01-03 22:25] LABS: Hematocrit (blood only) 34.7 % (42-52); Hemoglobin 10.7 g/dL (14.0-18.0)
[2019-01-04] MEDS: CEFEPIME 2,000 MG in SYRINGE 7.5 ML IV SCH (04:00)
[2019-01-04 05:05] LABS: Basophils # (auto) 0.01 K/uL (0-0.2); Basophils % (auto) 0.1 %; Hematocrit (blood only) 34.3 % (42-52); Hemoglobin 10.5 g/dL (14.0-18.0); Immature Granulocytes # (auto) 0.02 K/uL (0.00-0.02); Immature Granulocytes % (auto) 0.2 %; Lymphocytes # (auto) 0.48 K/uL (1.2-3.4); Lymphocytes % (auto) 4.2 %; Mean Corpuscular Hgb Conc 30.6 g/dL (32-36); Mean Corpuscular Volume 92.7 fL (80-100); Mean Platelet Volume 10.3 fL (7.4-10.4); Monocytes % (auto) 5.2 %; Neutrophils # (auto) 10.41 K/uL (1.4-6.5); Neutrophils % (auto) 90.3 %; Platelet Count 151 K/uL (130-400); RDW Coefficient of Variation 18.1 % (11.5-14.5); RDW Standard Deviation 59.9 fL (36.4-46.3); White Blood Count 11.52 K/uL (4.8-10.8)
[2019-01-04 05:16] LABS: INR 1.9 (0.9-1.1); Prothrombin Time 18.4 Seconds (9.0-12.0)
[2019-01-04 05:49] LABS: Albumin Level 2.1 gm/dl (3.4-5.0); BUN Creatinine Ratio 28.2 (10-20); Bilirubin Direct 0.5 mg/dl (0-0.2); Bilirubin,Total 1.1 mg/dl (0.2-1); Calcium 7.9 mg/dl (8.5-10.1); Creatinine Clr Calc Pharmacy 71.3 ml/min; Est GFR (African American) 102.9; Est GFR (Non-African American) 88.8; Magnesium 2.2 mg/dl (1.8-2.4); Potassium 2.8 mmol/L (3.5-5.1); Total Protein 4.7 gm/dl (6.4-8.2)
[2019-01-04 06:25] LABS: iSTAT Arterial Blood Gas HCO3 43 meg/L (19-24); iSTAT Arterial Blood Gas pCO2 60 mmHg (35-46); iSTAT Arterial Blood Gas pH 7.46 (7.35-7.45); iSTAT Carbon Dioxide > 40 mEq/l (24-31); iSTAT Site Art Line
[2019-01-04] MEDS: LEVOTHYROXINE SODIUM 50 MCG TABLET PO SCH (06:33)
[2019-01-04] MEDS: metroNIDAZOLE 500 MG/100 ML BAG IV SCH ×2 (06:38→14:54)
--- NOTE | 2019-01-04 07:26 | XRay Report ---
XR chest 1V portable CLINICAL HISTORY: intubation COMPARISON STUDY: Chest radiograph January 03, 2019. FINDINGS: The tip of the endotracheal tube is 2.8 cm above the joi. Right internal jugular central line remains in place. There is no pneumothorax. There are small bilateral pleural effusions. Left b asilar opacity persists. There is no evidence of overt edema. Tip of nasogastric tube is below lower aspect of image but at least within the proximal stomach. IMPRESSION: 1. Satisfactory positioning of lines and tubes. 2. No change in small bilateral pleural effusions with left basilar opacity may reflect atelectasis o r consolidation. Electronically signed by: Lonnie Almanza M.D. 01/04/2019 7:24 AM
[2019-01-04] MEDS: NOREPINEPHRINE BIT INJ 8 MG in DEXTROSE 5% 500 ML IV SCH (09:18)
[2019-01-04 10:11] LABS: Hematocrit (blood only) 35.6 % (42-52); Hemoglobin 10.9 g/dL (14.0-18.0)
[2019-01-04] MEDS: POTASSIUM CHLORIDE / WTR 20 MEQ/100 ML PLCT IV SCH ×2 (10:29→11:16)
[2019-01-04] MEDS: FAMOTIDINE 20 MG in SYRINGE 3 ML IV SCH ×2 (10:29→22:14)
--- NOTE | 2019-01-04 10:49 | Critical Care Progress Note ---
Date of Service January 04, 2019 Assessment & Plan (1) Acute respiratory failure with hypoxia and hypercapnia: Continue spontaneous breathing trial and evaluate for extubation. Patient will remain at high risk for intubation as he has severe cardiomyopathy in the setting of severe inoperable aortic stenosis (2) Chronic combined systolic and diastolic congestive heart failure: Chest x-ray shows no overt pulmonary edema today. He is of course at risk for further decompensations given inoperable aortic stenosis in the setting of EF of 30% most recent echo (3) Colitis: No evidence of infection at present so will discontinue antibiotics (4) JAVIER (acute kidney injury): Monitor BUN, creatinine and electrolytes (5) Aortic stenosis: Recent aortic valvuloplasty unsuccessful, unfortunately patient not felt to be candidate for TAVR or aortic valve replacement (6) CHF (congestive heart failure): Try to wean pressors, hold diuretics. Subjective Patient remains intubated mechanically ventilated and on norepinephrine. He is alert and responsive to command. He is on no sedation. We have just started spontaneous breathing trial. Review of Systems Review of Systems: Unobtainable due to endotracheal tube Physical Exam Constitutional: WD/WN, vitals as above Eyes: PERRL, conjunctivae normal, anicteric sclerae ENMT: external ear and nose normal, oropharynx normal Neck: Trachea midline, no JVD Respiratory: Auscultation: lungs clear to auscultation bilaterally Cardiovascular: RRR, no murmur, no edema Chest (Breasts): Additional Comments: Lungs clear no wheezing rales or rhonchi Gastrointestinal (Abdomen): normal bowel sounds, soft, nontender, no hepatosplenomegaly Musculoskeletal: No cyanosis clubbing or edema. Extremities cool Skin: No rash petechia or purpura Neurologic: No focality appreciated Results & Data Vital Signs (Past 12 Hours) Vital Signs Temp Pulse Resp Pulse Ox 01/04/19 07:20 72 20 99 01/04/19 06:22 77 17 99 01/04/19 06:00 62 99 01/04/19 05:00 71 100 01/04/19 04:00 37 C 65 100 01/04/19 03:00 70 100 01/04/19 02:26 66 11 L 100 01/04/19 02:00 64 100 01/04/19 01:00 68 100 01/04/19 00:00 36.1 C L 77 100 01/03/19 23:00 65 100 01/03/19 22:55 72 19 100 Laboratory Results 01/04/19 01/04/19 01/04/19 Range/Units 10:03 06:12 04:41 WBC (4.8-10.8) K/uL RBC (4.7-6.1) M/uL Hgb 10.9 L (14.0-18.0) g/dL Hct 35.6 L (42-52) % MCV (80-100) fL MCH (25-34) pg MCHC (32-36) g/dL RDW Std Deviation (36.4-46.3) fL RDW Coeff of Jessica (11.5-14.5) % Plt Count (130-400) K/uL MPV (7.4-10.4) fL Immature Gran % (Auto) % Neut % (Auto) % Lymph % (Auto) % [place] % (Auto) % Eos % (Auto) % Baso % (Auto) % Immature Gran # (Auto) (0.00-0.02) K/uL Neut # (Auto) (1.4-6.5) K/uL Lymph # (Auto) (1.2-3.4) K/uL [place] # (Auto) (0.11-0.59) K/uL Eos # (Auto) (0-0.5) K/uL Baso # (Auto) (0-0.2) K/uL PT 18.4 H (9.0-12.0) Seconds INR 1.9 H (0.9-1.1) Sample Site Art Line POC pH 7.46 H (7.35-7.45) POC pCO2 60 H (35-46) mmHg POC pO2 90 (80-95) mmHg POC HCO3 43 H (19-24) jeaneth/L POC Total CO2 > 40 H* (24-31) mEq/l POC Base Excess 19.0 H (-9-1.8) jeaneth/L POC ABG O2 Sat 97.0 H (90-95) % Chandler Test NA O2 Delivery Device Ventilator POC O2 Rate 10 Minute Ventilation 6.2 Tidal Volume 500 PEEP 5 Sodium (136-145) mmol/L Potassium (3.5-5.1) mmol/L Chloride (98-107) mmol/L Carbon Dioxide (21-32) mmol/L Anion Gap (3-11) BUN (7-18) mg/dl Creatinine (0.6-1.4) mg/dl Est Cr Clr Drug Dosing ml/min Est GFR ( Amer) Est GFR (Non-Af Amer) BUN/Creatinine Ratio (10-20) Glucose (70-99) mg/dl Calcium (8.5-10.1) mg/dl Magnesium (1.8-2.4) mg/dl Total Bilirubin (0.2-1) mg/dl Direct Bilirubin (0-0.2) mg/dl AST (15-37) U/L ALT (12-78) U/L Alkaline Phosphatase (45-117) U/L Total Protein (6.4-8.2) gm/dl Albumin (3.4-5.0) gm/dl 01/04/19 01/04/19 01/03/19 Range/Units 04:41 04:41 22:15 WBC 11.52 H (4.8-10.8) K/uL RBC 3.70 L (4.7-6.1) M/uL Hgb 10.5 L 10.7 L (14.0-18.0) g/dL Hct 34.3 L 34.7 L (42-52) % MCV 92.7 (80-100) fL MCH 28.4 (25-34) pg MCHC 30.6 L (32-36) g/dL RDW Std Deviation 59.9 H (36.4-46.3) fL RDW Coeff of Jessica 18.1 H (11.5-14.5) % Plt Count 151 (130-400) K/uL MPV 10.3 (7.4-10.4) fL Immature Gran % (Auto) 0.2 % Neut % (Auto) 90.3 % Lymph % (Auto) 4.2 % [place] % (Auto) 5.2 % Eos % (Auto) 0.0 % Baso % (Auto) 0.1 % Immature Gran # (Auto) 0.02 (0.00-0.02) K/uL Neut # (Auto) 10.41 H (1.4-6.5) K/uL Lymph # (Auto) 0.48 L (1.2-3.4) K/uL [place] # (Auto) 0.60 H (0.11-0.59) K/uL Eos # (Auto) 0.00 (0-0.5) K/uL Baso # (Auto) 0.01 (0-0.2) K/uL PT (9.0-12.0) Seconds INR (0.9-1.1) Sample Site POC pH (7.35-7.45) POC pCO2 (35-46) mmHg POC pO2 (80-95) mmHg POC HCO3 (19-24) jeaneth/L POC Total CO2 (24-31) mEq/l POC Base Excess (-9-1.8) jeaneth/L POC ABG O2 Sat (90-95) % Chandler Test O2 Delivery Device POC O2 Rate Minute Ventilation Tidal Volume PEEP Sodium 148 H (136-145) mmol/L Potassium 2.8 L D (3.5-5.1) mmol/L Chloride 106 (98-107) mmol/L Carbon Dioxide 39 H (21-32) mmol/L Anion Gap 3.0 (3-11) BUN 22 H (7-18) mg/dl Creatinine 0.77 D (0.6-1.4) mg/dl Est Cr Clr Drug Dosing 71.3 ml/min Est GFR ( Amer) 102.9 Est GFR (Non-Af Amer) 88.8 BUN/Creatinine Ratio 28.2 H (10-20) Glucose 103 H (70-99) mg/dl Calcium 7.9 L (8.5-10.1) mg/dl Magnesium 2.2 (1.8-2.4) mg/dl Total Bilirubin 1.1 H (0.2-1) mg/dl Direct Bilirubin 0.5 H (0-0.2) mg/dl AST 101 H (15-37) U/L ALT 40 (12-78) U/L Alkaline Phosphatase 129 H (45-117) U/L Total Protein 4.7 L (6.4-8.2) gm/dl Albumin 2.1 L (3.4-5.0) gm/dl 01/03/19 Range/Units 16:26 WBC (4.8-10.8) K/uL RBC (4.7-6.1) M/uL Hgb 10.3 L (14.0-18.0) g/dL Hct 34.0 L (42-52) % MCV (80-100) fL MCH (25-34) pg MCHC (32-36) g/dL RDW Std Deviation (36.4-46.3) fL RDW Coeff of Jessica (11.5-14.5) % Plt Count (130-400) K/uL MPV (7.4-10.4) fL Immature Gran % (Auto) % Neut % (Auto) % Lymph % (Auto) % [place] % (Auto) % Eos % (Auto) % Baso % (Auto) % Immature Gran # (Auto) (0.00-0.02) K/uL Neut # (Auto) (1.4-6.5) K/uL Lymph # (Auto) (1.2-3.4) K/uL [place] # (Auto) (0.11-0.59) K/uL Eos # (Auto) (0-0.5) K/uL Baso # (Auto) (0-0.2) K/uL PT (9.0-12.0) Seconds INR (0.9-1.1) Sample Site POC pH (7.35-7.45) POC pCO2 (35-46) mmHg POC pO2 (80-95) mmHg POC HCO3 (19-24) jeaneth/L POC Total CO2 (24-31) mEq/l POC Base Excess (-9-1.8) jeaneth/L POC ABG O2 Sat (90-95) % Chandler Test O2 Delivery Device POC O2 Rate Minute Ventilation Tidal Volume PEEP Sodium (136-145) mmol/L Potassium (3.5-5.1) mmol/L Chloride (98-107) mmol/L Carbon Dioxide (21-32) mmol/L Anion Gap (3-11) BUN (7-18) mg/dl Creatinine (0.6-1.4) mg/dl Est Cr Clr Drug Dosing ml/min Est GFR ( Amer) Est GFR (Non-Af Amer) BUN/Creatinine Ratio (10-20) Glucose (70-99) mg/dl Calcium (8.5-10.1) mg/dl Magnesium (1.8-2.4) mg/dl Total Bilirubin (0.2-1) mg/dl Direct Bilirubin (0-0.2) mg/dl AST (15-37) U/L ALT (12-78) U/L Alkaline Phosphatase (45-117) U/L Total Protein (6.4-8.2) gm/dl Albumin (3.4-5.0) gm/dl Medications Administered Home Medications aspirin [Aspirin Low Dose] 81 mg PO DAILY 09/10/18 [History Confirmed 01/01/19] cholecalciferol (vitamin D3) 1 cap PO QAM 09/10/18 [History Confirmed 01/01/19] ferrous sulfate 325 mg PO BID 09/10/18 [History Confirmed 01/01/19] metoprolol succinate 12.5 mg PO QPM 09/10/18 [History Confirmed 01/01/19] sertraline 75 mg PO QPM 09/10/18 [History Confirmed 01/01/19] atorvastatin 80 mg PO HS #30 tab 09/29/18 [Rx Confirmed 01/01/19] furosemide 40 mg PO QAM #30 tab 09/29/18 [Rx Confirmed 01/01/19] magnesium oxide 400 mg PO BID #60 tab 09/29/18 [Rx Confirmed 01/01/19] pantoprazole 40 mg PO BID #0 tab 09/29/18 [Rx Confirmed 01/01/19] acetaminophen [Mapap (acetaminophen)] 650 mg PO Q6H PRN MDD 3G 01/01/19 [History Confirmed 01/01/19] alum-mag hydroxide-simeth [Maalox Advanced] 30 ml PO QID PRN 01/01/19 [History Confirmed 01/01/19] digoxin 0.125 mg PO 3XWK 01/01/19 [History Confirmed 01/01/19] latanoprost 1 drp OPB DAILY 01/01/19 [History Confirmed 01/01/19] levothyroxine 75 mcg PO QAM 01/01/19 [History Confirmed 01/01/19] multivitamin [Multiple Vitamins] 1 tab PO DAILY 01/01/19 [History Confirmed 01/01/19] sacubitril-valsartan [Entresto] 1 tab PO BID 01/01/19 [History Confirmed 01/01/19] sennosides-docusate sodium [Senokot-S] 1 tab PO HS 01/01/19 [History Confirmed 01/01/19] Active Medications Fentanyl Citrate (Fentanyl Citrate) 100 mcg IV Q2H PRN PRN Reason: Severe Pain (7,8,9,10) Stop: 01/16/19 16:54 Last Admin: 01/03/19 22:22 Dose: 100 mcg Documented by: Heparin Sodium (Beef Lung) (Heparin Sod 10 Unit/Ml Flush) 5 ml FLUSH PRN PRN PRN Reason: Flush Stop: 02/02/19 23:52 Cefepime HCl 2,000 mg/ Syringe 20 mls @ 5.5 mls/min IV Q12H [facility]; Protocol Stop: 01/09/19 15:59 Last Admin: 01/04/19 04:00 Dose: 5.5 mls/min Documented by: Vancomycin HCl 1,000 mg/ (Sodium Chloride) 270 mls @ 125 mls/hr IV Q22H [facility]; Protocol Stop: 01/04/19 10:59 Last Infusion: 01/03/19 14:51 Dose: Infused Documented by: Norepinephrine Bitartrate 8 mg (/ Dextrose) 508 mls @ 16.22 mls/hr IV .Q24H [facility]; Protocol Stop: 02/01/19 19:14 Last Admin: 01/04/19 09:18 Dose: 0.07 mcg/kg/min, 16.2 mls/hr Documented by: Metronidazole (Flagyl) 500 mg in 100 mls @ 100 mls/hr IV Q8 [facility] Stop: 01/12/19 22:29 Last Infusion: 01/04/19 09:17 Dose: Infused Documented by: Famotidine 20 mg/ Syringe 5 mls @ 2.5 mls/min IV BID [facility] Stop: 02/01/19 22:14 Last Admin: 01/04/19 10:29 Dose: 2.5 mls/min Documented by: Potassium Chloride (K Moncho / Wtr) 20 meq in 100 mls @ 50 mls/hr IV Q2H [facility] Stop: 01/04/19 12:59 Last Admin: 01/04/19 10:29 Dose: 50 mls/hr Documented by: Levothyroxine Sodium (Synthroid) 50 mcg PO DAILYBB [facility] Stop: 02/01/19 06:29 Last Admin: 01/04/19 06:33 Dose: Not Given Documented by: Midazolam HCl (Versed) 2 mg IV Q2H PRN PRN Reason: agitation/anxiety Stop: 02/01/19 16:53 Last Admin: 01/03/19 21:07 Dose: 2 mg Documented by: Miscellaneous Information (Consult) 1 ea N/A UD PRN PRN Reason: Consult Stop: 02/01/19 14:36 Critical Care Time Critical Care Time: Yes Total Critical Care Time: 35 (1) Aortic stenosis Cardiac valve disease etiology: etiology unspecified Qualified Code(s): I35.0 - Nonrheumatic aortic (valve) stenosis (2) CHF (congestive heart failure) Heart failure chronicity: acute Heart failure type: unspecified Qualified Code(s): I50.9 - Heart failure, unspecified
[2019-01-04 11:53] LABS: iSTAT Arterial Blood Gas HCO3 40 meg/L (19-24); iSTAT Arterial Blood Gas pCO2 44 mmHg (35-46); iSTAT Arterial Blood Gas pH 7.56 (7.35-7.45); iSTAT Carbon Dioxide 41 mEq/l (24-31)
[2019-01-04 11:55] LABS: iSTAT Sample Type Arterial
[2019-01-04 11:56] LABS: iSTAT Allen Test Pass; iSTAT Arterial Blood Gas HCO3 42 meg/L (19-24); iSTAT Arterial Blood Gas pCO2 75 mmHg (35-46); iSTAT Arterial Blood Gas pH 7.36 (7.35-7.45); iSTAT Carbon Dioxide > 40 mEq/l (24-31); iSTAT FiO2 40 %; iSTAT Site R Radial
[2019-01-04 11:56] LABS: Patient Temperature 36.8; iSTAT Allen Test Acceptable
[2019-01-04 11:58] LABS: iSTAT SpO2 96
--- NOTE | 2019-01-04 13:00 | Hospitalist Progress Note ---
Date of Service January 04, 2019 Assessment & Plan (1) Colitis: CT a/p on 01/02 showed colitis and gastritis with distribution pointing toward an infectious etiology. C. diff on 01/03 was negative. Had bloody BMs on presentation. - Despite CT report, concern for ischemic colitis as cause in setting of shock, respiratory failure, and severe CHF. - Consider general surgery evaluation but poor candidate for anything invasive. - IV abx including cefepime, Flagyl, and vanc stopped on 01/04 per pulm/cc team. (2) Acute respiratory failure with hypoxia and hypercapnia: Unclear etiology with CXR without discrete pneumonia or pulmonary edema. - Possible metabolic factors leading to respiratory failure (intra-abdominal process, etc). - Intubated on 01/03 - Plan for extubation today (01/04) - Defer vent management to critical care. (3) Hypotension: Possibly sepsis vs. cardiogenic. - Still on norepinephrine - Wean per ICU team (4) JAVIER (acute kidney injury): Normal baseline. Cr up to 1.8. - Normalized to 0.8 on 01/04. - Cont IV abx, pressors, supportive care. (5) Elevated troponin: Troponin was 0.6 and 0.5 serially. - Likely myocardial demand ischemia. (6) Elevated international normalized ratio (INR): Mr Rizo had elevated INR during hospitalization in September 2018. He has no formal dx of liver disease. It was assumed at that time he had passive congestion of the liver leading to liver dysfunction from his CHF. He had no response to vitamin K supplementation. Vitamin K given again this admission w/o any effect. - Suspect liver dysfunction in setting of severe CHF, shock. - Trend LFTs and INR - RUQ u/s and consider GI consult (7) Digoxin toxicity: Digoxin level was 2.1 on admission (elevated) - Holding digoxin. - By 01/02, digoxin level was 1.8. (8) Pulmonary hypertension: Known diagnosis, suspected to be playing role in chronic hypoxia at baseline. (9) Hypothyroidism: TSH for the last year has been high. Unsure if this is noncompliance vs. needing adjusted rate. TSH was 7 this admission. - Cont levothyroxine for now (10) Aortic stenosis: severe. S/p valvuloplasty recently but unsuccessful. - Still with considerable stenosis on echo right now - No inpatient needs at present. (11) CAD in [place] artery: No evidence of ACS at this time. - See above (12) Chronic combined systolic and diastolic congestive heart failure: Consider inotropic agent if shock is felt to be partially cardiogenic in origin (13) Atrial fibrillation: Rates controlled. Paced much of the time. - Not on medical anticoagulation -> Has elevated INR due to likely liver issues. (14) DVT prophylaxis: INR was 2.7 in absence of anticoagulation; on 01/04, INR is now 1.9. - Holding chemoprophylaxis at this time Subjective Intubated Review of Systems Review of Systems: Unobtainable due to endotracheal tube Physical Exam Constitutional: + thin and + frail appearing Respiratory: + labored breathing (tachypnea) Auscultation: lungs clear to auscultation bilaterally Cardiovascular: Rate/Rhythm: regular rate and + irregularly irregular Heart Sounds: normal S1, normal S2 and + murmur (2/6 systolic murmur RUSB) Vessels: posterior tibial pulses present and dorsalis pedis pulses present; no JVD Gastrointestinal (Abdomen): Inspection/Auscultation: abdomen not distended Percussion/Palpation: + abdomen tender (LLQ) and abdomen soft; no guarding and no hepatosplenomegaly Psychiatric: Orientation: + not alert and + not oriented x 3 Results & Data Vital Signs (Past 12 Hours) Vital Signs Temp Pulse Resp Pulse Ox 01/04/19 11:45 105 H 23 100 01/04/19 07:20 72 20 99 01/04/19 06:22 77 17 99 01/04/19 06:00 62 99 01/04/19 05:00 71 100 01/04/19 04:00 37 C 65 100 01/04/19 03:00 70 100 01/04/19 02:26 66 11 L 100 01/04/19 02:00 64 100 01/04/19 01:00 68 100 (1) Digoxin toxicity Encounter type: subsequent encounter Injury intent: undetermined intent Qualified Code(s): T46.0X4D - Poisoning by cardiac-stimulant glycosides and drugs of similar action, undetermined, subsequent encounter (2) Hypotension Hypotension type: other hypotension type Qualified Code(s): I95.89 - Other hypotension (3) Hypothyroidism Hypothyroidism type: acquired Qualified Code(s): E03.9 - Hypothyroidism, unspecified (4) Aortic stenosis Cardiac valve disease etiology: etiology unspecified Qualified Code(s): I35.0 - Nonrheumatic aortic (valve) stenosis (5) Atrial fibrillation Atrial fibrillation type: paroxysmal Qualified Code(s): I48.0 - Paroxysmal atrial fibrillation
[2019-01-04 17:24] LABS: Hematocrit (blood only) 36.6 % (42-52)
[2019-01-04 22:37] LABS: Hematocrit (blood only) 35.6 % (42-52); Hemoglobin 10.5 g/dL (14.0-18.0)
[2019-01-05 04:51] LABS: Hematocrit (blood only) 36.6 % (42-52); Hemoglobin 10.6 g/dL (14.0-18.0)
[2019-01-05 05:49] LABS: BUN Creatinine Ratio 26.4 (10-20); Calcium 8.5 mg/dl (8.5-10.1); Creatinine Clr Calc Pharmacy 87.1 ml/min; Est GFR (African American) 110.3; Est GFR (Non-African American) 95.2; Potassium 3.2 mmol/L (3.5-5.1)
[2019-01-05] MEDS: LEVOTHYROXINE SODIUM 50 MCG TABLET PO SCH (06:30)
--- NOTE | 2019-01-05 07:28 | XRay Report ---
XR chest 1V portable CLINICAL HISTORY: intubation COMPARISON STUDY: Chest radiograph January 04, 2019. FINDINGS: The endotracheal and nasogastric tubes have been removed. Right internal jugular central li ne remains in place. Small bilateral pleural effusions with left basilar opacity persists. There is n o pneumothorax. Pulmonary vascular congestion is noted. IMPRESSION: 1. No change in small bilateral pleural effusions with left basilar opacity which may reflect atelect asis or consolidation. 2. Increase in pulmonary vascular congestion with possible mild pulmonary edema. Electronically signed by: Lonnie Almanza M.D. 01/05/2019 7:26 AM
[2019-01-05] MEDS: FAMOTIDINE 20 MG in SYRINGE 3 ML IV SCH (08:55)
[2019-01-05] MEDS: NOREPINEPHRINE BIT INJ 8 MG in DEXTROSE 5% 500 ML IV SCH (09:04)
[2019-01-05] MEDS ORDERED: POTASSIUM CHLORIDE 20 MEQ TABCR PO ONE (09:15)
[2019-01-05] MEDS ORDERED: SERTRALINE HCL 50 MG TABLET PO SCH (09:15)
--- NOTE | 2019-01-05 09:21 | Critical Care Progress Note ---
Date of Service January 05, 2019 Assessment & Plan (1) Acute respiratory failure with hypoxia and hypercapnia: Wean oxygen as tolerated. Patient will remain at high risk for intubation as he has severe cardiomyopathy in the setting of severe inoperable aortic stenosis. We have asked palliative care to see him for advanced care planning. (2) Chronic combined systolic and diastolic congestive heart failure: Chest x-ray shows no overt pulmonary edema today. He is of course at risk for further decompensations given inoperable aortic stenosis in the setting of EF of 30% most recent echo we will attempt to wean Levophed based upon clinical assessment of perfusion given low output state (3) Colitis: Doubt infectious etiology, most likely due to poor cardiac output so antibiotics DC'd (4) JAVIER (acute kidney injury): Monitor BUN, creatinine and electrolytes. Replete potassium (5) Aortic stenosis: Recent aortic valvuloplasty unsuccessful, unfortunately patient not felt to be candidate for TAVR or aortic valve replacement (6) CHF (congestive heart failure): Try to wean pressors, hold diuretics. Restart digoxin and metoprolol hold Entresto for now Subjective Patient was extubated yesterday. He is currently large check but arousable in no acute distress. He remains on Levophed and given chronic low output state blood pressures chronically run on the low side so we are trying to wean the Levophed based on clinical assessment of perfusion. We have reintroduced some of his home medications. Palliative care consultation has been placed. Patient offers no complaints Review of Systems Review of Systems: All systems reviewed & are unremarkable except as noted in HPI & below Physical Exam Constitutional: WD/WN, vitals as above Eyes: PERRL, conjunctivae normal, anicteric sclerae ENMT: external ear and nose normal, oropharynx normal Neck: Trachea midline, neck supple, no JVD Respiratory: Auscultation: lungs clear to auscultation bilaterally Cardiovascular: RRR, no murmur, no edema Gastrointestinal (Abdomen): normal bowel sounds, soft, nontender, no hepato splenomegaly Musculoskeletal: Extremities pink, no cyanosis, no clubbing, trace to 1+ edema Neurologic: Nonfocal, lethargic Results & Data Vital Signs (Past 12 Hours) Vital Signs Temp Pulse Resp BP Pulse Ox 01/05/19 08:15 90 17 101/43 L 97 01/05/19 08:01 80 16 89/50 L 97 01/05/19 08:00 90 19 01/05/19 07:45 97 H 21 105/53 L 97 01/05/19 07:31 102 H 18 94/53 L 96 01/05/19 07:16 106 H 17 102/65 97 01/05/19 07:01 90 20 110/63 97 01/05/19 07:00 98 H 18 01/05/19 06:46 99 H 20 117/66 98 01/05/19 06:30 97 H 20 105/51 L 98 01/05/19 06:16 90 19 103/50 L 98 01/05/19 06:01 80 22 108/51 L 98 01/05/19 06:00 96 H 16 97 01/05/19 05:46 82 29 H 90/53 L 98 01/05/19 05:31 91 H 18 102/54 L 98 01/05/19 05:16 100 H 19 101/51 L 98 01/05/19 05:01 90 17 88/48 L 98 01/05/19 05:00 95 H 19 96 01/05/19 04:46 86 15 85/44 L 98 01/05/19 04:30 80 20 97/44 L 97 01/05/19 04:15 88 23 83/51 L 97 01/05/19 04:01 36.4 C L 94 H 19 60/51 L 98 01/05/19 04:00 90 20 98 01/05/19 03:46 79 20 99/44 L 98 01/05/19 03:30 90 19 100/50 L 98 01/05/19 03:15 86 19 101/46 L 98 01/05/19 03:00 78 21 93/46 L 98 01/05/19 02:45 89 21 92/47 L 98 01/05/19 02:31 91 H 18 86/53 L 98 01/05/19 02:15 83 19 102/50 L 97 01/05/19 02:00 81 20 87/51 L 98 01/05/19 01:45 84 18 89/46 L 98 01/05/19 01:30 80 18 88/56 L 99 01/05/19 01:15 82 16 84/50 L 97 01/05/19 01:00 86 20 86/49 L 99 01/05/19 00:46 80 19 89/40 L 99 01/05/19 00:30 84 19 90/59 L 99 01/05/19 00:16 81 18 81/48 L 99 01/05/19 00:01 36.6 C 80 18 95/47 L 98 01/05/19 00:00 85 22 01/04/19 23:46 89 23 91/50 L 99 01/04/19 23:31 84 18 99/44 L 99 01/04/19 23:16 82 19 97/54 L 98 01/04/19 23:01 74 22 99 01/04/19 23:00 81 19 99/51 L 99 01/04/19 22:47 82 18 99 01/04/19 22:46 80 12 88/46 L 99 01/04/19 22:30 78 14 103/61 98 01/04/19 22:15 87 17 85/50 L 97 01/04/19 22:05 83 18 84/50 L 99 01/04/19 22:01 80 22 76/51 L 97 01/04/19 22:00 77 22 01/04/19 21:45 85 21 88/47 L 98 01/04/19 21:31 78 18 85/46 L 99 01/04/19 21:15 88 20 86/49 L 98 Laboratory Results 01/05/19 01/05/19 01/04/19 Range/Units 04:13 04:13 22:15 Hgb 10.6 L 10.5 L (14.0-18.0) g/dL Hct 36.6 L 35.6 L (42-52) % Specimen Type Sample Site Patient Temperature POC pH (7.35-7.45) POC pCO2 (35-46) mmHg POC pO2 (80-95) mmHg POC HCO3 (19-24) jeaneth/L POC Total CO2 (24-31) mEq/l POC Base Excess (-9-1.8) jeaneth/L O2 Sat Pulse Oximetry POC ABG O2 Sat (90-95) % Chandler Test O2 Delivery Device POC O2 Rate Vent Mode POC FiO2 % Tidal Volume End Tidal CO2 PEEP Sodium 149 H (136-145) mmol/L Potassium 3.2 L (3.5-5.1) mmol/L Chloride 106 (98-107) mmol/L Carbon Dioxide 42 H* (21-32) mmol/L Anion Gap 1.0 L (3-11) BUN 17 (7-18) mg/dl Creatinine 0.65 (0.6-1.4) mg/dl Est Cr Clr Drug Dosing 87.1 ml/min Est GFR ( Amer) 110.3 Est GFR (Non-Af Amer) 95.2 BUN/Creatinine Ratio 26.4 H (10-20) Glucose 97 (70-99) mg/dl Calcium 8.5 (8.5-10.1) mg/dl 01/04/19 01/04/19 01/04/19 Range/Units 16:46 11:42 10:03 Hgb 11.0 L 10.9 L (14.0-18.0) g/dL Hct 36.6 L 35.6 L (42-52) % Specimen Type Sample Site R Radial Patient Temperature POC pH 7.36 (7.35-7.45) POC pCO2 75 H (35-46) mmHg POC pO2 117 H (80-95) mmHg POC HCO3 42 H (19-24) jeaneth/L POC Total CO2 > 40 H* (24-31) mEq/l POC Base Excess 16.0 H (-9-1.8) jeaneth/L O2 Sat Pulse Oximetry POC ABG O2 Sat 98.0 H (90-95) % Chandler Test Pass O2 Delivery Device Ventilator POC O2 Rate Vent Mode POC FiO2 40 % Tidal Volume End Tidal CO2 PEEP 5 Sodium (136-145) mmol/L Potassium (3.5-5.1) mmol/L Chloride (98-107) mmol/L Carbon Dioxide (21-32) mmol/L Anion Gap (3-11) BUN (7-18) mg/dl Creatinine (0.6-1.4) mg/dl Est Cr Clr Drug Dosing ml/min Est GFR ( Amer) Est GFR (Non-Af Amer) BUN/Creatinine Ratio (10-20) Glucose (70-99) mg/dl Calcium (8.5-10.1) mg/dl 01/03/19 Range/Units 10:56 Hgb (14.0-18.0) g/dL Hct (42-52) % Specimen Type Arterial Sample Site Patient Temperature 36.8 POC pH 7.56 H* (7.35-7.45) POC pCO2 44 (35-46) mmHg POC pO2 65 L (80-95) mmHg POC HCO3 40 H (19-24) jeaneth/L POC Total CO2 41 H* (24-31) mEq/l POC Base Excess 17.0 H (-9-1.8) jeaneth/L O2 Sat Pulse Oximetry 96 POC ABG O2 Sat 95.0 (90-95) % Chandler Test Acceptable O2 Delivery Device Ventilator POC O2 Rate 28 Vent Mode PRVC AC POC FiO2 % Tidal Volume 500 End Tidal CO2 37 PEEP 5 Sodium (136-145) mmol/L Potassium (3.5-5.1) mmol/L Chloride (98-107) mmol/L Carbon Dioxide (21-32) mmol/L Anion Gap (3-11) BUN (7-18) mg/dl Creatinine (0.6-1.4) mg/dl Est Cr Clr Drug Dosing ml/min Est GFR ( Amer) Est GFR (Non-Af Amer) BUN/Creatinine Ratio (10-20) Glucose (70-99) mg/dl Calcium (8.5-10.1) mg/dl Diagnostic Findings Chest x-ray reviewed, no infiltrates Medications Administered Home Medications Medication Instructions Recorded Confirmed Last Taken aspirin [Aspirin Low Dose] 81 mg PO DAILY 09/10/18 01/01/19 01/01/19 09:00 cholecalciferol (vitamin D3) 1 cap PO QAM 09/10/18 01/01/19 01/01/19 09:00 ferrous sulfate 325 mg PO BID 09/10/18 01/01/19 01/01/19 08:30 metoprolol succinate 12.5 mg PO QPM 09/10/18 01/01/19 12/31/18 20:30 sertraline 75 mg PO QPM 09/10/18 01/01/19 12/31/18 20:30 atorvastatin 80 mg PO HS #30 tab 09/29/18 01/01/19 12/31/18 20:30 furosemide 40 mg PO QAM #30 tab 09/29/18 01/01/19 01/01/19 08:00 magnesium oxide 400 mg PO BID #60 tab 09/29/18 01/01/19 01/01/19 08:30 pantoprazole 40 mg PO BID #0 tab 09/29/18 01/01/19 01/01/19 08:00 acetaminophen [Mapap 650 mg PO Q6H PRN MDD 3G 01/01/19 01/01/19 Unknown (acetaminophen)] alum-mag hydroxide-simeth [Maalox 30 ml PO QID PRN 01/01/19 01/01/19 Unknown Advanced] digoxin 0.125 mg PO 3XWK 01/01/19 01/01/19 01/01/19 09:00 latanoprost 1 drp OPB DAILY 01/01/19 01/01/19 01/01/19 08:00 levothyroxine 75 mcg PO QAM 01/01/19 01/01/19 01/01/19 08:00 multivitamin [Multiple Vitamins] 1 tab PO DAILY 01/01/19 01/01/19 01/01/19 08:30 sacubitril-valsartan [Entresto] 1 tab PO BID 01/01/19 01/01/19 01/01/19 08:30 sennosides-docusate sodium 1 tab PO HS 01/01/19 01/01/19 12/31/18 20:30 [Senokot-S] Active Medications Generic Name Dose Route Start Last Admin Trade Name Freq PRN Reason Stop Dose Admin Norepinephrine Bitartrate 8 mg 508 mls @ 23.16 mls/hr 01/02/19 19:15 01/05/19 09:04 / Dextrose IV 02/01/19 19:14 Not Given .[id number] [facility] Protocol 0.1 MCG/KG/MIN Levothyroxine Sodium 50 mcg 01/02/19 06:30 01/05/19 06:30 Synthroid PO 02/01/19 06:29 Not Given DAILYBB [facility] Critical Care Time Critical Care Time: Yes Total Critical Care Time: 35 (1) Aortic stenosis Cardiac valve disease etiology: etiology unspecified Qualified Code(s): I35.0 - Nonrheumatic aortic (valve) stenosis (2) CHF (congestive heart failure) Heart failure chronicity: acute Heart failure type: unspecified Qualified Code(s): I50.9 - Heart failure, unspecified
[2019-01-05] MEDS ORDERED: LEVOTHYROXINE SODIUM 37.5 MCG in SYRINGE 0 ML IV SCH (10:00)
[2019-01-05 10:03] LABS: INR 1.7 (0.9-1.1); Prothrombin Time 16.6 Seconds (9.0-12.0)
[2019-01-05 10:22] LABS: Magnesium 2.5 mg/dl (1.8-2.4); Phosphorus 3.2 mg/dl (2.5-4.9)
[2019-01-05] MEDS: POTASSIUM CHLORIDE / WTR 20 MEQ/100 ML PLCT IV SCH ×2 (10:46→11:53)
--- NOTE | 2019-01-05 11:17 | Palliative Care Consultation ---
Date of Consultation January 05, 2019 Assessment & Plan (1) Palliative care encounter: This is a 73 year old male listed as a Full Code, presented to the ED from [facility] with worsening hypercapnic respiratory failure. This patient has had a complicated hospitalization including complex cardiovascular history, intubation, extubation and inotropic support. Additional PMH includes Afib, HTN, CHF with severe with an EF < 20%. He underwent an evaluation for TAVR and was deemed not an appropriate candidate back in October 2018. Patient most recently was extubated yesterday and based on the complexity of his poor cardiovascular function, is a high risk of decline and reintubation/coding. Palliative Care was consulted to discuss code status and goals of care with family. -I met with patient in room with SENIOR DEVELOPER student Jolie Huddleston. No family at bedside. -Patient not responding to verbal stimuli but does withdraw to painful stimuli this morning. By the afternoon, patient was moving limbs and opened eyes for family that was in the room. -Patient was requiring Levophed that the RN was weaning down based on arm cuff NIBP. Patient SBP 70-80 systolic with pressors weaned off. This likely could be his baseline BP with poor perfusion due to complex valvular disease. -I spoke at length with patient daughterLucio and her Ayden on the phone regarding his condition and decline, including the possibility of him not returning to a meaningful state compared to pre-admission and code status. -Daughter and son-in-law stated that he would not want to live with aggressive measures for the rest of his life and would want to focus on comfort, either here at the hospital if he can't be transfered or return to [facility] if stablized. -After our conversation, we did conclude to change him to a DNR/DNI with NO escalation in care. They were 'ok' with him to continue to receive the current inotropic support he was on, but did not want to add any additional pressors. -We did talk at length about overall goal, as we are noticing a decline with decreased urine output, less meaningful cognitive participation, etc. The patient daughter and her would like to avoid any heroic and escalating measures of care. -I did set the expectation that the patient could very well live for days to weeks; however, also could decline quickly with how poor his heart is functioning. -I would like to see how he does over the next day or two prior to discussing discharge plans or a return to [facility] based on his stability. -All questions answered to family. They would like the patients brother and sister to come to the hospital to see him just in case he would decline quickly. -We left our conversation that we would keep things as currently ordered, with no escalation in care, all while changing him to a DNR/DNI in the computer. -All IDT informed of conversation with support. We will continue to closely follow and provide family support. -No comfort medications ordered at this time, as we would like to further discuss with family and see how he does clinically. -PPS: 20% (2) Acute respiratory failure with hypoxia and hypercapnia: (3) Acute on chronic combined systolic and diastolic congestive heart failure due to valvular disease: (4) Atrial flutter with rapid ventricular response: History of Present Illness Reason for Consultation: Goals of Care Requesting Physician: Dr. Stahl Attending Physician: Anthony Shahid MD History of Present Illness This is a 73 year old male listed as a Full Code, presented to the ED from [facility] with worsening hypercapnic respiratory failure. This patient has had a complicated hospitalization including complex cardiovascular history, intubation, extubation and inotropic support. Additional PMH includes Afib, HTN, CHF with severe with an EF < 20%. He underwent an evaluation for TAVR and was deemed not an appropriate candidate back in October 2018. Patient most recently was extubated yesterday and based on the complexity of his poor cardiovascular function, is a high risk of decline and reintubation/coding. Palliative Care was consulted to discuss code status and goals of care with family. Please see A/P for further details. Thank you kindly for involving the palliative care service. We will follow to assist with decision making and symptom management. Allergies Allergy/AdvReac Type Severity Reaction Status Date / Time No Known Allergies Allergy Verified 01/01/19 17:05 Home Medications Home Medications Medication Instructions Recorded Confirmed Type aspirin [Aspirin Low Dose] 81 mg PO DAILY 09/10/18 01/01/19 History cholecalciferol (vitamin D3) 1 cap PO QAM 09/10/18 01/01/19 History ferrous sulfate 325 mg PO BID 09/10/18 01/01/19 History metoprolol succinate 12.5 mg PO QPM 09/10/18 01/01/19 History sertraline 75 mg PO QPM 09/10/18 01/01/19 History atorvastatin 80 mg PO HS #30 tab 09/29/18 01/01/19 Rx furosemide 40 mg PO QAM #30 tab 09/29/18 01/01/19 Rx magnesium oxide 400 mg PO BID #60 tab 09/29/18 01/01/19 Rx pantoprazole 40 mg PO BID #0 tab 09/29/18 01/01/19 Rx acetaminophen [Mapap 650 mg PO Q6H PRN MDD 3G 01/01/19 01/01/19 History (acetaminophen)] alum-mag hydroxide-simeth [Maalox 30 ml PO QID PRN 01/01/19 01/01/19 History Advanced] digoxin 0.125 mg PO 3XWK 01/01/19 01/01/19 History latanoprost 1 drp OPB DAILY 01/01/19 01/01/19 History levothyroxine 75 mcg PO QAM 01/01/19 01/01/19 History multivitamin [Multiple Vitamins] 1 tab PO DAILY 01/01/19 01/01/19 History sacubitril-valsartan [Entresto] 1 tab PO BID 01/01/19 01/01/19 History sennosides-docusate sodium 1 tab PO HS 01/01/19 01/01/19 History [Senokot-S] Patient History Medical History CAD in [place] artery HLD (hyperlipidemia) Hypertension Atrial fibrillation Chronic diastolic heart failure Chronic systolic heart failure Expressive aphasia Paroxysmal atrial fibrillation Surgical History H/O heart artery stent Family History Other Family history non-contributory Social History Preferred Language: Japanese Communication Ability: Unable Lowerator Operator Required: No Beliefs That Will Affect Care: None Current Living Situation: Family Current Living Situation Comment: daughter Other Information That Helps Us Care for You: No Feels Safe at Home: Declines to Answer Smoking Status: Former smoker Second Hand Exposure: No Hx Alcohol Use: No Hx Substance Use: No Review of Systems Review of Systems: Unobtainable due to reduced consciousness Physical Exam Constitutional: + acute distress and + ill appearing Eyes: PERRL, conjunctivae normal, anicteric sclerae ENMT: external ear and nose normal, oropharynx normal Neck: trachea midline, no thyromegaly Respiratory: + uses accessory muscles Auscultation: + rhonchi shallow breathing with decreased effort during exam Cardiovascular: Heart Sounds: normal S1, normal S2 and + murmur (grade IV LSB) Extremities: normal capillary refill and + edema (anasarca upper extremites ) Gastrointestinal (Abdomen): normal bowel sounds, soft, nontender, no hepatosplenomegaly Skin: + turgor decreased, + lesion (bilateral forearms with optifoam dressing in place (C/D/I)), + skin tightening, + ecchymosis and + pallor Psychiatric: Orientation: + not alert and + not oriented x 3 Insight: + severely impaired insight Judgement: + severely impaired judgement Patient not opening eyes, somnolent during exam. Genitourinary: indwelling del valle catheter with decreased clear yellow output Lymphatic: no cervical or axillary lymphadenopathy Results & Data Vital Signs (Past 12 Hours) Vital Signs Temp Pulse Resp BP Pulse Ox 01/05/19 10:08 92 H 19 83/39 L 97 01/05/19 10:01 82 17 72/38 L 98 01/05/19 10:00 79 17 01/05/19 09:31 80 16 87/54 L 98 01/05/19 09:01 95 H 17 100/40 L 97 01/05/19 08:46 90 16 77/50 L 96 01/05/19 08:31 92 H 18 94/57 L 96 01/05/19 08:15 90 17 101/43 L 97 01/05/19 08:01 80 16 89/50 L 97 01/05/19 08:00 36.4 C L 90 19 01/05/19 07:45 97 H 21 105/53 L 97 01/05/19 07:31 102 H 18 94/53 L 96 01/05/19 07:16 106 H 17 102/65 97 01/05/19 07:01 90 20 110/63 97 01/05/19 07:00 98 H 18 01/05/19 06:46 99 H 20 117/66 98 01/05/19 06:30 97 H 20 105/51 L 98 01/05/19 06:16 90 19 103/50 L 98 01/05/19 06:01 80 22 108/51 L 98 01/05/19 06:00 96 H 16 97 01/05/19 05:46 82 29 H 90/53 L 98 01/05/19 05:31 91 H 18 102/54 L 98 01/05/19 05:16 100 H 19 101/51 L 98 01/05/19 05:01 90 17 88/48 L 98 01/05/19 05:00 95 H 19 96 01/05/19 04:46 86 15 85/44 L 98 01/05/19 04:30 80 20 97/44 L 97 01/05/19 04:15 88 23 83/51 L 97 01/05/19 04:01 36.4 C L 94 H 19 60/51 L 98 01/05/19 04:00 90 20 98 01/05/19 03:46 79 20 99/44 L 98 01/05/19 03:30 90 19 100/50 L 98 01/05/19 03:15 86 19 101/46 L 98 01/05/19 03:00 78 21 93/46 L 98 01/05/19 02:45 89 21 92/47 L 98 01/05/19 02:31 91 H 18 86/53 L 98 01/05/19 02:15 83 19 102/50 L 97 01/05/19 02:00 81 20 87/51 L 98 01/05/19 01:45 84 18 89/46 L 98 01/05/19 01:30 80 18 88/56 L 99 01/05/19 01:15 82 16 84/50 L 97 01/05/19 01:00 86 20 86/49 L 99 01/05/19 00:46 80 19 89/40 L 99 01/05/19 00:30 84 19 90/59 L 99 01/05/19 00:16 81 18 81/48 L 99 01/05/19 00:01 36.6 C 80 18 95/47 L 98 01/05/19 00:00 85 22 01/04/19 23:46 89 23 91/50 L 99 01/04/19 23:31 84 18 99/44 L 99
--- NOTE | 2019-01-05 15:10 | Hospitalist Progress Note ---
Date of Service January 05, 2019 Assessment & Plan (1) Comfort measures only status: Moved toward comfort care by daughter. - Wean meds as able - Transfer to medical floor when able (2) Colitis: CT a/p on 01/02 showed colitis and gastritis with distribution pointing toward an infectious etiology. C. diff on 01/03 was negative. Had bloody BMs on presentation. - Despite CT report, concern for ischemic colitis as cause in setting of shock, respiratory failure, and severe CHF. - IV abx including cefepime, Flagyl, and vanc stopped on 01/04 per pulm/cc team. (3) Acute respiratory failure with hypoxia and hypercapnia: Unclear etiology with CXR without discrete pneumonia or pulmonary edema. - Possible metabolic factors leading to respiratory failure (intra-abdominal process, etc). - Intubated on 01/03 - Extubated on 01/04 - Continued shallow breathing (4) Hypotension: Likely Septic Shock or both Cardiogenic and Septic Shock treated with pressors, IVF's, and ICU hemodynamic monitoring. - Taken off norepinephrine on 01/05 in move toward comfort care. - Wean per ICU team (5) JAVIER (acute kidney injury): Normal baseline. Cr up to 1.8. - Normalized to 0.8 on 01/04. (6) Elevated troponin: Troponin was 0.6 and 0.5 serially. - Likely myocardial demand ischemia. (7) Elevated international normalized ratio (INR): Mr Rizo had elevated INR during hospitalization in September 2018. He has no formal dx of liver disease. It was assumed at that time he had passive congestion of the liver leading to liver dysfunction from his CHF. He had no response to vitamin K supplementation. Vitamin K given again this admission w/o any effect. - Suspect liver dysfunction in setting of severe CHF, shock. (8) Digoxin toxicity: Digoxin level was 2.1 on admission (elevated) - Holding digoxin. - By 01/02, digoxin level was 1.8. (9) Pulmonary hypertension: Known diagnosis, suspected to be playing role in chronic hypoxia at baseline. (10) Hypothyroidism: TSH for the last year has been high. Unsure if this is noncompliance vs. needing adjusted rate. TSH was 7 this admission. - Cont levothyroxine for now (11) Aortic stenosis: severe. S/p valvuloplasty recently but unsuccessful. - Still with considerable stenosis on echo right now - No inpatient needs at present. (12) CAD in [place] artery: No evidence of ACS at this time. - See above (13) Chronic combined systolic and diastolic congestive heart failure: Consider inotropic agent if shock is felt to be partially cardiogenic in origin (14) Atrial fibrillation: Rates controlled. Paced much of the time. - Not on medical anticoagulation -> Has elevated INR due to likely liver issues. (15) DVT prophylaxis: INR was 2.7 in absence of anticoagulation; on 01/04, INR is now 1.9. - Holding chemoprophylaxis at this time Subjective Opens eyes at times. No responses. Review of Systems Review of Systems: Unobtainable due to cognitive status Physical Exam Constitutional: + thin and + frail appearing Respiratory: + labored breathing (tachypnea) Cardiovascular: Rate/Rhythm: regular rate and + irregularly irregular Heart Sounds: normal S1, normal S2 and + murmur (2/6 systolic murmur RUSB) Vessels: posterior tibial pulses present and dorsalis pedis pulses present; no JVD Gastrointestinal (Abdomen): Inspection/Auscultation: abdomen not distended Percussion/Palpation: + abdomen tender (LLQ) and abdomen soft; no guarding and no hepatosplenomegaly Psychiatric: Orientation: + not alert and + not oriented x 3 Results & Data Vital Signs (Past 12 Hours) Vital Signs Temp Pulse Pulse Resp BP BP Pulse Ox 01/05/19 14:01 82 21 75/34 L 96 01/05/19 13:00 83 19 80/42 L 99 01/05/19 12:01 91 H 20 68/36 L 96 01/05/19 12:00 36.4 C L 91 H 86 19 68/36 L 94 01/05/19 11:31 85 23 72/43 L 97 01/05/19 11:01 86 18 80/40 L 97 01/05/19 10:31 92 H 18 90/45 L 97 01/05/19 10:09 89 22 97 01/05/19 10:08 92 H 19 83/39 L 97 01/05/19 10:01 82 17 72/38 L 98 01/05/19 10:00 79 17 01/05/19 09:31 80 16 87/54 L 98 01/05/19 09:01 95 H 17 100/40 L 97 01/05/19 08:46 90 16 77/50 L 96 01/05/19 08:31 92 H 18 94/57 L 96 01/05/19 08:15 90 17 101/43 L 97 01/05/19 08:01 80 16 89/50 L 97 01/05/19 08:00 36.4 C L 90 19 01/05/19 07:45 97 H 21 105/53 L 97 01/05/19 07:31 102 H 18 94/53 L 96 01/05/19 07:16 106 H 17 102/65 97 01/05/19 07:01 90 20 110/63 97 01/05/19 07:00 98 H 18 01/05/19 06:46 99 H 20 117/66 98 01/05/19 06:30 97 H 20 105/51 L 98 01/05/19 06:16 90 19 103/50 L 98 01/05/19 06:01 80 22 108/51 L 98 01/05/19 06:00 96 H 16 97 01/05/19 05:46 82 29 H 90/53 L 98 01/05/19 05:31 91 H 18 102/54 L 98 01/05/19 05:16 100 H 19 101/51 L 98 01/05/19 05:01 90 17 88/48 L 98 01/05/19 05:00 95 H 19 96 01/05/19 04:46 86 15 85/44 L 98 01/05/19 04:30 80 20 97/44 L 97 01/05/19 04:15 88 23 83/51 L 97 01/05/19 04:01 36.4 C L 94 H 19 60/51 L 98 01/05/19 04:00 90 20 98 01/05/19 03:46 79 20 99/44 L 98 01/05/19 03:30 90 19 100/50 L 98 01/05/19 03:15 86 19 101/46 L 98 (1) Digoxin toxicity Encounter type: subsequent encounter Injury intent: undetermined intent Qu alified Code(s): T46.0X4D - Poisoning by cardiac-stimulant glycosides and drugs of similar action, undetermined, subsequent encounter (2) Aortic stenosis Cardiac valve disease etiology: etiology unspecified Qualified Code(s): I35.0 - Nonrheumatic aortic (valve) stenosis (3) Atrial fibrillation Atrial fibrillation type: paroxysmal Qualified Code(s): I48.0 - Paroxysmal atrial fibrillation (4) Hypothyroidism Hypothyroidism type: acquired Qualified Code(s): E03.9 - Hypothyroidism, unspecified (5) Hypotension Hypotension type: other hypotension type Qualified Code(s): I95.89 - Other hypotension
[2019-01-05] MEDS ORDERED: ACETAMINOPHEN 325 MG TAB PO PRN (19:18)
[2019-01-05] MEDS ORDERED: MoRPHine SULFATE 4 MG/ML 1 ML CARP\\VIAL IV PRN (19:18)
[2019-01-05] MEDS ORDERED: MoRPHine SULFATE 2 MG/ML CARP IV PRN (19:18)
[2019-01-05] MEDS ORDERED: ALUMINUM/MAGNESIUM SUSP 30 ML UDC PO PRN (19:18)
[2019-01-05] MEDS ORDERED: SCOPOLAMINE 1.5 MG TDSY TD SCH (20:00)
[2019-01-05] MEDS ORDERED: FAMOTIDINE 20 MG TAB PO SCH (21:00)
[2019-01-05] MEDS ORDERED: METOPROLOL SUCC 25MG EXT REL TAB PO SCH (21:00)
[2019-01-05] MEDS ORDERED: FAMOTIDINE 20 MG in SYRINGE 3 ML IV SCH (21:00)
[2019-01-05] MEDS ORDERED: ATORVASTATIN 40 MG TAB PO SCH (21:00)
[2019-01-05] MEDS: CHECK SCOPOLAMINE PATCH PLACEMENT SCH (23:05)
[2019-01-06] MEDS ORDERED: LEVOTHYROXINE SODIUM 75 MCG TABLET PO SCH (06:30)
[2019-01-06] MEDS: CHECK SCOPOLAMINE PATCH PLACEMENT SCH (08:15)
[2019-01-06] MEDS ORDERED: ASPIRIN 81 MG ECTAB PO SCH (09:00)
[2019-01-06] MEDS ORDERED: ASPIRIN 300 MG SUPP PR SCH (09:00)
--- NOTE | 2019-01-06 10:02 | Palliative Care Progress Note ---
Date of Service January 06, 2019 Assessment & Plan (1) Palliative care encounter: This is a 73 year old male listed as a Full Code, presented to the ED from [facility] with worsening hypercapnic respiratory failure. This patient has had a complicated hospitalization including complex cardiovascular history, intubation, extubation and inotropic support. Additional PMH includes Afib, HTN, CHF with severe with an EF < 20%. He underwent an evaluation for TAVR and was deemed not an appropriate candidate back in October 2018. Patient most recently was extubated yesterday and based on the complexity of his poor cardiovascular function, is a high risk of decline and reintubation/coding. Palliative Care was consulted to discuss code status and goals of care with family. -Saw patient with [employer] student Jolie Huddleston. Initially, no family was present; however, patients daughter, Vanita and son-in-law, Ayden, were in the room and we met to discuss goals of care. -Patient improved from yesterday. Patient woke up and is able to follow all commands. -Pt denies pain, but stated his right shoulder was bothering him. He keeps asking for -Patient able to speak, weak likely related to recent intubation. -Patient with weak cough, likely related to intubation as well. -Patient sister at the bedside, she stayed with him overnight. Per sister, patient having intermittent hallucinations, which we did witness in the room. Patient kept looking at the red wall and commented saying "who is over there"? pointing to the chair. -Patient was requiring Levophed that the RN was weaned and discontinued correlating with arm cuff NIBP. Patient SBP 70-80 systolic with pressors weaned off throughout the night. This likely could be his baseline BP with poor perfusion due to complex valvular disease. -While I do think he has stablized and may be returning to his baseline, I think that he still does have chronic illness, and if he is able to return to [facility], a skilled return vs skilled with hospice transition vs hospice only discussion should be held with a POLST form completion prior to his discharge/return. -Previous conversation indicated the patient daughter and her would like to avoid any heroic and escalating measures of care. -I did set the expectation that the patient could very well live for days to weeks; however, also could decline quickly with how poor his heart is functioning. -I would like to see how he does over the next day or two prior to discussing discharge plans or a return to [facility] based on his stability. -Patient does have IV Morphine ordered if needed, he has not required any doses at this time. A Scopalamine patch was ordered yesterday as well, but has been discontinued as he had extremely dry oral mucosa today and based on his improving clinical condition, would be more comfortable for him. -I spoke with daughter and son-in-law regarding overall prognosis and goals. Goal is to focus on comfort and return to [facility] with no additional hospitalizations unless comfort needs cannot be fulfilled. -A POLST form was completed indicating DNR/DNI, Comfort measures only, no abx and no artificial hydration/nutrition. -Hospice was discussed with family and they would like to move forward with having Hospice in place upon his arrival. Case Management met with family and discussed hospice agencies. [facility] was chosen for agency. -PPS: 20% (2) Acute respiratory failure with hypoxia and hypercapnia: (3) Acute on chronic combined systolic and diastolic congestive heart failure due to valvular disease: (4) Atrial flutter with rapid ventricular response: Subjective -Saw patient with [employer] student Jolie Huddleston. Initially, no family was present; however, patients daughter, Vanita and son-in-law, Ayden, were in the room and we met to discuss goals of care. -Patient improved from yesterday. Patient woke up and is able to follow all commands. -Pt denies pain, but stated his right shoulder was bothering him. He keeps asking for -Patient able to speak, weak likely related to recent intubation. -Patient with weak cough, likely related to intubation as well. -Patient sister at the bedside, she stayed with him overnight. Per sister, patient having intermittent hallucinations, which we did witness in the room. Patient kept looking at the red wall and commented saying "who is over there"? pointing to the chair. -See A/P for further details. Review of Systems Review of Systems: Patient denies pain and discomfort. Patient reports having a cough Physical Exam Constitutional: + ill appearing, + cachectic, cooperative, comfortable and + lethargic; no acute distress Eyes: PERRL, conjunctivae normal, anicteric sclerae ENMT: external ear and nose normal, oropharynx normal Neck: trachea midline, no thyromegaly Respiratory: + cough (likely weak d/t recent intubation); does not use accessory muscles Auscultation: + rhonchi Cardiovascular: Heart Sounds: normal S1, normal S2 and + murmur (grade IV LSB) Extremities: normal capillary refill and + edema (anasarca upper extremites ) Gastrointestinal (Abdomen): normal bowel sounds, soft, nontender, no hepatosplenomegaly Skin: + turgor decreased, + lesion (bilateral forearms with optifoam dressing in place (C/D/I)), + skin tightening, + ecchymosis and + pallor Psychiatric: Orientation: alert, oriented to person, oriented to place and cooperative Eye Contact: + fair eye contact Thought Content: + delusions (intermittent hallucinations) Insight: + severely impaired insight Judgement: + severely impaired judgement Lymphatic: no cervical or axillary lymphadenopathy Results & Data Vital Signs (Past 12 Hours) Vital Signs Temp Pulse Resp BP Pulse Ox 01/05/19 23:29 36.4 C L 89 12 76/45 L 90 Time Spent Midlevel Total time spent 45 minutes with > 50% of that time spent assessing the patient, and discussing goals of care with IDT
--- NOTE | 2019-01-06 15:35 | Hospitalist Progress Note ---
Date of Service January 06, 2019 Assessment & Plan (1) Comfort measures only status: Moved toward comfort care by daughter. - Wean meds as able - Transferred to medical floor on 01/05 - Arranging hospice at [facility] (2) Colitis: CT a/p on 01/02 showed colitis and gastritis with distribution pointing toward an infectious etiology. C. diff on 01/03 was negative. Had bloody BMs on presentation. - Despite CT report, concern for ischemic colitis as cause in setting of shock, respiratory failure, and severe CHF. - IV abx including cefepime, Flagyl, and vanc stopped on 01/04 per pulm/cc team. (3) Acute respiratory failure with hypoxia and hypercapnia: Unclear etiology with CXR without discrete pneumonia or pulmonary edema. - Possible metabolic factors leading to respiratory failure (intra-abdominal process, etc). - Intubated on 01/03 - Extubated on 01/04 - Continued shallow breathing (4) Hypotension: Likely Septic Shock or both Cardiogenic and Septic Shock treated with pressors, IVF's, and ICU hemodynamic monitoring. - Taken off norepinephrine on 01/05 in move toward comfort care. - Wean per ICU team (5) JAVIER (acute kidney injury): Normal baseline. Cr up to 1.8. - Normalized to 0.8 on 01/04. (6) Elevated troponin: Troponin was 0.6 and 0.5 serially. - Likely myocardial demand ischemia. (7) Elevated international normalized ratio (INR): Mr Rizo had elevated INR during hospitalization in September 2018. He has no formal dx of liver disease. It was assumed at that time he had passive congestion of the liver leading to liver dysfunction from his CHF. He had no response to vitamin K supplementation. Vitamin K given again this admission w/o any effect. - Suspect liver dysfunction in setting of severe CHF, shock. (8) Digoxin toxicity: Digoxin level was 2.1 on admission (elevated) - Holding digoxin. - By 01/02, digoxin level was 1.8. (9) Pulmonary hypertension: Known diagnosis, suspected to be playing role in chronic hypoxia at baseline. (10) Hypothyroidism: TSH for the last year has been high. Unsure if this is noncompliance vs. needing adjusted rate. TSH was 7 this admission. - Cont levothyroxine for now (11) Aortic stenosis: severe. S/p valvuloplasty recently but unsuccessful. - Still with considerable stenosis on echo right now - No inpatient needs at present. (12) CAD in [place] artery: No evidence of ACS at this time. - See above (13) Chronic combined systolic and diastolic congestive heart failure: Consider inotropic agent if shock is felt to be partially cardiogenic in origin (14) Atrial fibrillation: Rates controlled. Paced much of the time. - Not on medical anticoagulation -> Has elevated INR due to likely liver issues. (15) DVT prophylaxis: INR was 2.7 in absence of anticoagulation; on 01/04, INR is now 1.9. - Holding chemoprophylaxis at this time Subjective Wakes up, reports no pain, no shortness of breath. Review of Systems Review of Systems: All systems reviewed & are unremarkable except as noted in HPI & below Physical Exam Constitutional: + thin and + frail appearing Respiratory: + labored breathing (tachypnea) Auscultation: lungs clear to auscultation bilaterally Cardiovascular: Rate/Rhythm: regular rate and + irregularly irregular Heart Sounds: normal S1, normal S2 and + murmur (2/6 systolic murmur RUSB) Vessels: posterior tibial pulses present and dorsalis pedis pulses present; no JVD Gastrointestinal (Abdomen): Inspection/Auscultation: abdomen not distended Percussion/Palpation: abdomen soft; abdomen nontender (LLQ), no guarding and no hepatosplenomegaly Psychiatric: Orientation: + not alert and + not oriented x 3 (1) Hypotension Hypotension type: other hypotension type Qualified Code(s): I95.89 - Other hypotension (2) Digoxin toxicity Encounter type: subsequent encounter Injury intent: undetermined intent Qualified Code(s): T46.0X4D - Poisoning by cardiac-stimulant glycosides and drugs of similar action, undetermined, subsequent encounter (3) Hypothyroidism Hypothyroidism type: acquired Qualified Code(s): E03.9 - Hypothyroidism, unspecified (4) Aortic stenosis Cardiac valve disease etiology: etiology unspecified Qualified Code(s): I35.0 - Nonrheumatic aortic (valve) stenosis (5) Atrial fibrillation Atrial fibrillation type: paroxysmal Qualified Code(s): I48.0 - Paroxysmal atrial fibrillation
[2019-01-06] MEDS ORDERED: DIGOXIN 0.125 MG TAB PO SCH (16:00)
[2019-01-06] MEDS: LORazepam 0.5 MG/1 ML VIAL IV PRN (23:22)
[2019-01-07] MEDS: LORazepam 0.5 MG/1 ML VIAL IV PRN (09:39)
--- NOTE | 2019-01-07 12:07 | Palliative Care Progress Note ---
Date of Service January 07, 2019 Assessment & Plan (1) Palliative care encounter: This is a 73 year old male listed as a Full Code, presented to the ED from [facility] with worsening hypercapnic respiratory failure. This patient has had a complicated hospitalization including complex cardiovascular history, intubation, extubation and inotropic support. Additional PMH includes Afib, HTN, CHF with severe with an EF < 20%. He underwent an evaluation for TAVR and was deemed not an appropriate candidate back in October 2018. Patient most recently was extubated yesterday and based on the complexity of his poor cardiovascular function, is a high risk of decline and reintubation/coding. Palliative Care was consulted to discuss code status and goals of care with family. -Saw patient with [employer] student Jolie Huddleston. Initially, no family was present; however, patients daughter, Vanita and son-in-law, Ayden, were in the room and we met to discuss goals of care. -Patient sister at the bedside, she stayed with him overnight. -Patient has declined from yesterday. Patient was restless overnight and received Ativan. Pt appears calm during examination, but less interactive. -Previous conversation indicated the patient daughter and her would like to avoid any heroic and escalating measures of care; and the plan is to return to [facility] under Hospice services. -I did set the expectation that the patient could very well live for days to weeks; however, also could decline quickly with how poor his heart is functioning. -Patient does have IV Morphine ordered if needed, he has not required any doses at this time. -I spoke with daughter and son-in-law regarding overall prognosis and goals. Goal is to focus on comfort and return to [facility] with no additional hospitalizations unless comfort needs cannot be fulfilled. -A POLST form was completed yesterday with the patient's daughter indicating DNR/DNI, Comfort measures only, no abx and no artificial hydration/nutrition. -PPS: 20% (2) Acute respiratory failure with hypoxia and hypercapnia: (3) Acute on chronic combined systolic and diastolic congestive heart failure due to valvular disease: (4) Atrial flutter with rapid ventricular response: Subjective -Saw patient with [employer] student oJlie Huddleston. Multiple family members present, including pt sister, niece and great-niece. Pt daughter did come as well, along with [facility] RN Uma. -Patient has declined from yesterday and is spontaneously opening his eyes, but following less commands. -Per family patient was restless overnight and this morning for which Ativan was administered. -Pt did not respond verbally today, appears more uncomfortable. -Patient B/P increased from baseline, now 106/64, which could be indicative of an overall decline. Pulse rate 91 and does appear comfortable at this time. Pt restricted when I attempted to have a better visual of his pupils. -See A/P for further details. Review of Systems Review of Systems: Unobtainable due to reduced consciousness Physical Exam Constitutional: + ill appearing, + cachectic, cooperative, comfortable and + lethargic; no acute distress ENMT: external ear and nose normal, oropharynx normal Neck: trachea midline, no thyromegaly Respiratory: + cough (likely weak d/t recent intubation); does not use accessory muscles Auscultation: + rhonchi Cardiovascular: Heart Sounds: normal S1, normal S2 and + murmur (grade IV LSB) Extremities: normal capillary refill and + edema (anasarca upper extremites ) Gastrointestinal (Abdomen): normal bowel sounds, soft, nontender, no hepatosplenomegaly Skin: + turgor decreased, + lesion (bilateral forearms with optifoam dressing in place (C/D/I)), + skin tightening, + ecchymosis and + pallor Psychiatric: Orientation: alert, oriented to person, oriented to place and cooperative Eye Contact: + fair eye contact Thought Content: + delusions (intermittent hallucinations) Insight: + severely impaired insight Judgement: + severely impaired judgement Lymphatic: no cervical or axillary lymphadenopathy Results & Data Vital Signs (Past 12 Hours) Vital Signs Temp Pulse Pulse Resp BP Pulse Ox 01/07/19 11:23 36.4 C L 89 91 H 20 106/64 100 Time Spent Midlevel Total time spent 35 minutes with > 50% of that time spent assessing the patient, discussing goals of care with patient family.
--- NOTE | 2019-01-07 16:40 | Discharge Summary ---
Date of Service January 07, 2019 Admission HPI Per Admitting Provider Patient arrives appointed from [facility] he is a 73-year-old male who recently underwent evaluation for a TAVR and was felt to not have appropriate vasculature to access his TAVR. This was in the spring of this year where he was at [facility]. Surrounding that evaluation he did have an undetermined source of GI blood loss and received 2 units packed red blood cell transfusions. The patient subsequently did have a valvuloplasty with did not have significant success. He suffers from both systolic and diastolic chronic heart failure and according to the family which was not present at the bedside we will communicate this to the ER doctor, he was having increasing hallucinations of late at the half-way. Subsequently he was obtunded today brought to the emergency department and found to have hypercarbic respiratory failure with VBG pH of 7.18 and VBG PCO2 of 110. Patient does not have a history of COPD but did have a similar episode of carbadox and retention according to the family relates that [place]. Patient does have pulmonary hypertension previous lung injury including an empyema atrial fibrillation which is paroxysmal and he was deemed to be not a coagulation candidate due to his GI blood loss. Despite this fact his INR on presentation was elevated Patient is obtunded on BiPAP he does open his eyes slightly to voice and stimulus his family is not present Principal Diagnosis Cardiogenic shock Discharge Exam Constitutional + thin and + frail appearing Respiratory + labored breathing (tachypnea) Auscultation: lungs clear to auscultation bilaterally Cardiovascular Rate/Rhythm: regular rate and + irregularly irregular Heart Sounds: normal S1, normal S2 and + murmur (2/6 systolic murmur RUSB) Vessels: posterior tibial pulses present and dorsalis pedis pulses present; no JVD Gastrointestinal (Abdomen) Inspection/Auscultation: abdomen not distended Percussion/Palpation: abdomen soft; abdomen nontender (LLQ), no guarding and no hepatosplenomegaly Psychiatric Orientation: + not alert and + not oriented x 3 Discharge Data Allergies Allergy/AdvReac Type Severity Reaction Status Date / Time No Known Allergies Allergy Verified 01/01/19 17:05 Consultations 01/01/19 15:44 ED Decision to Admit Stat 01/01/19 19:37 Consult Case Management - Discharge Planning Routine Consult Director Of Regulatory Affairs Routine 01/05/19 08:15 Consult Palliative Care Routine Ordered Studies 01/01/19 13:54 CT head/brain wo con Stat 01/02/19 18:47 CT abd pelvis oral con only Stat 01/03/19 15:50 US point of care ultrasound Stat Hospital Course (1) Comfort measures only status: Moved toward comfort care by daughter. - Wean meds as able - Transferred to medical floor on 01/05 - Arranging hospice at [facility] (2) Colitis: CT a/p on 01/02 showed colitis and gastritis with distribution pointing toward an infectious etiology. C. diff on 01/03 was negative. Had bloody BMs on presentation. - Despite CT report, concern for ischemic colitis as cause in setting of shock, respiratory failure, and severe CHF. - IV abx including cefepime, Flagyl, and vanc stopped on 01/04 per pulm/cc team. (3) Acute respiratory failure with hypoxia and hypercapnia: Unclear etiology with CXR without discrete pneumonia or pulmonary edema. - Possible metabolic factors leading to respiratory failure (intra-abdominal process, etc). - Intubated on 01/03 - Extubated on 01/04 - Continued shallow breathing (4) Hypotension: Likely Septic Shock or both Cardiogenic and Septic Shock treated with pressors, IVF's, and ICU hemodynamic monitoring. - Taken off norepinephrine on 01/05 in move toward comfort care. - Wean per ICU team (5) JAVIER (acute kidney injury): Normal baseline. Cr up to 1.8. - Normalized to 0.8 on 01/04. (6) Elevated troponin: Troponin was 0.6 and 0.5 serially. - Likely myocardial demand ischemia. (7) Elevated international normalized ratio (INR): Mr Rizo had elevated INR during hospitalization in September 2018. He has no formal dx of liver disease. It was assumed at that time he had passive congestion of the liver leading to liver dysfunction from his CHF. He had no response to vitamin K supplementation. Vitamin K given again this admission w/o any effect. - Suspect liver dysfunction in setting of severe CHF, shock. (8) Digoxin toxicity: Digoxin level was 2.1 on admission (elevated) - Holding digoxin. - By 01/02, digoxin level was 1.8. (9) Pulmonary hypertension: Known diagnosis, suspected to be playing role in chronic hypoxia at baseline. (10) Hypothyroidism: TSH for the last year has been high. Unsure if this is noncompliance vs. needing adjusted rate. TSH was 7 this admission. - Cont levothyroxine for now (11) Aortic stenosis: severe. S/p valvuloplasty recently but unsuccessful. - Still with considerable stenosis on echo right now - No inpatient needs at present. (12) CAD in [place] artery: No evidence of ACS at this time. - See above (13) Chronic combined systolic and diastolic congestive heart failure: Consider inotropic agent if shock is felt to be partially cardiogenic in origin (14) Atrial fibrillation: Rates controlled. Paced much of the time. - Not on medical anticoagulation -> Has elevated INR due to likely liver issues. (15) DVT prophylaxis: INR was 2.7 in absence of anticoagulation; on 01/04, INR is now 1.9. - Holding chemoprophylaxis at this time Total Time Total Time Spent Total Time Spent (In Minutes): 35 Total Time Includes: Examination of the Patient and Communication With Other Providers Discharge Plan Discharge Items Patient Disposition: Hospice - Medical Facility Reason For Visit: ACUTE RESPIRATORY FAILURE WITH HYPERCAPNIA Discharge Diagnosis: Heart failure Discharge Goals: Diagnostic testing and Improve disease control Activity: Resume your previous activity Non-emergency contact: Specialist Call non-emergency contact if: your symptoms worsen and your pain is not controlled Follow-up/Referrals: Comal,Ricky [Primary Care Provider] - Diet: Nothing by mouth Addtl Provider Instructions: Mr. Rizo was admitted for inflammation from his colon due to low blood flow. He was made comfort care and will transition to hospice. Prescriptions: New MAG-AL 200-200 mg/5 mL Suspension 30 ml PO QID PRN (Reason: dyspepsia) Qty: 1 RF: 0 morphine 10 mg/5 mL solution 5 mg PO Q6H PRN (Reason: pain) Qty: 15 RF: 0 lorazepam 2 mg/mL concentrate 0.5 mg PO Q4H PRN (Reason: anxiety) Qty: 30 RF: 0 Continued acetaminophen [Mapap (acetaminophen)] 325 mg tablet 650 mg PO Q6H MDD 3G PRN (Reason: Fever Or Pain) RF: 0 Discontinued digoxin 125 mcg tablet 0.125 mg PO 3XWK RF: 0 Entresto 49-51 mg tablet 1 tab PO BID RF: 0 latanoprost 0.005 % drops 1 drp OPB DAILY RF: 0 levothyroxine 75 mcg tablet 75 mcg PO QAM RF: 0 alum-mag hydroxide-simeth [Maalox Advanced] 200-200-20 mg/5 mL Suspension 30 ml PO QID PRN (Reason: Indigestion) RF: 0 multivitamin [Multiple Vitamins] Tablet 1 tab PO DAILY RF: 0 sennosides-docusate sodium [Senokot-S] 8.6-50 mg Tablet 1 tab PO HS RF: 0 ferrous sulfate 325 mg (65 mg iron) tablet 325 mg PO BID RF: 0 metoprolol succinate 25 mg tablet extended release 24 hr 12.5 mg PO QPM RF: 0 sertraline 50 mg tablet 75 mg PO QPM RF: 0 cholecalciferol (vitamin D3) 2,000 unit capsule 1 cap PO QAM RF: 0 aspirin [Aspirin Low Dose] 81 mg Tablet,Delayed Release (Dr/Ec) 81 mg PO DAILY RF: 0 furosemide 40 mg Tablet 40 mg PO QAM Qty: 30 RF: 0 magnesium oxide 400 mg (241.3 mg magnesium) Tablet 400 mg PO BID Qty: 60 RF: 0 atorvastatin 80 mg tablet 80 mg PO HS Qty: 30 RF: 0 pantoprazole 40 mg tablet,delayed release (DR/EC) 40 mg PO BID Qty: 0 RF: 0 Stand-Alone Forms: [facility] Discharge Orders: Discharge Order (Routine); Ordered 01/07/19 Ordered By: Anthony Shahid Admission Data Admit Date/Time: 01/01/19 16:38 Attending Provider: Anthony Shahid Admit Provider: Raman Quintero Primary Care Provider: Ricky House Other Providers: Anthony Shahid ; Raman Quintero ; Ayden Chong Susan H Service: Medical Other Interventions: Discharge Summary Assessment (RN) Last Done: 01/07/19 11:23
--- NOTE | 2019-01-11 08:32 | Coding Query ---
To promote full compliance with coding requirements relating to patient care, provider participation is requested in all cases of system consultant uncertainty. Please assist us with the question(s) below: Coding Question(s): The diagnosis(es) below were documented beginning withe the 01/02/19 Progress Notes then subsequently fell off all further documentation on the Discharge Summary as the Hospital Course documents Hypotension as likely Septic Shock or both Cardiogenic Shock and Septic Shock , however, Principal Diagnosis on Discharge Summary documents Cardiogenic Shock. Please indicate if it is still a possible diagnosis or ruled out. Physician's Response(s): SEPSIS ( ) Diagnosed and POA ( x ) Diagnosed and not POA ( ) Ruled out ( ) Other (please specify) SEPTIC SHOCK ( ) Diagnosed and POA ( x ) Diagnosed and not POA ( ) Ruled out ( ) Other (please specify) MTDD
--- NOTE | 2019-01-11 08:39 | Coding Query ---
PRESENT ON ADMISSION QUERY To promote full compliance with coding requirements relating to pateint care, physician participation is requested in all cases of coder operator uncertainty. Please assist us with the question(s) below: Please place an X within the parenthesis (x). The following diagnosis(es) listed in this patient's medical record require physician assistance to determine if they were present on admission (POA) or not. Please advise for each diagnosis whether it was present on admission, not present on admission, or if it was clinically undetermined. 1. CARDIOGENIC SHOCK (hypotension and Sepsis? Cardiogenic? begins to be documented on 01/02/19 Progress Note thru chart) ( ) Present On Admission ( x ) Not Present On Admission ( ) Clinically Undetermined Thank you Mayela Joseph *Definition of the present on admission (POA)-Present on admission is defined as present at the time the order for inpatient admission occurs. Conditions that develop during an outpatient encounter prior to a written order for inpatient admission (including emergency department, observation, or outpatient surgery) are considered present on admission. LEROY
== END 2019-01-07 16:39 | disposition hospice, inpatient (51) | DRG 208 ==
LOC: ED 13:44 → 1E 16:38 → SUATTDRO 16:38 → 1E 18:15 → 4E 01-05 16:57